=== PATIENT | female | born 1955 | race Caucasian/White ===

== ENCOUNTER 2017-02-17 10:39 | Observation (INO) | payer OTHER ==
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
[2017-02-17] MEDS ORDERED: diphenhydrAMINE 50 MG/ML 1 ML VIAL IVP STA (11:14)
[2017-02-17] MEDS ORDERED: ACETAMINOPHEN IV (For NPO) 1,000 MG in EMPTY BAG 1 BAG IVPB STA (11:14)
[2017-02-17] MEDS ORDERED: LORazepam 2 MG/ML INJ IV STA (11:14)
[2017-02-17] MEDS ORDERED: KETOROLAC 30 MG/ML 1 ML VIAL IVP STA (11:14)
[2017-02-17] MEDS ORDERED: ONDANSETRON 4 MG/2 ML VIAL IVP STA (11:14)
[2017-02-17 11:28] LABS: Basophils % (A) 0 %; CH 29.9; CHCM 33.5; Eosinophils # (A) 0.1 k/uL (0-0.7); Eosinophils % (A) 1 %; HCT 44.3 % (34.0-46.0); HDW 2.36; HGB 14.2 gm/dL (11.4-16.0); Luc # (Auto) 0.07; Luc % (Auto) 1; Lymphocytes # (A) 0.8 k/uL (1.0-4.8); Lymphocytes % (A) 12 %; MCH 28.7 pg (25.0-35.0); MCV 89.8 fL (80.0-100.0); Mean Platelet Volume 7.4; Monocytes # (A) 0.4 k/uL (0-1.0); Monocytes % (A) 6 %; Neutrophils # (A) 5.6 k/uL (1.3-7.7); Neutrophils % (A) 80 %; RBC 4.93 m/uL (3.80-5.40); RDW 14.7 % (11.5-15.5); WBC (Perox) 7.05
[2017-02-17 11:43] LABS: INR 1.2 (<1.2); Partial Thromboplastin Time 24.9 sec (22.0-30.0); Prothrombin Time 11.4 sec (9.0-12.0)
--- NOTE | 2017-02-17 11:44 | XR ---
EXAMINATION TYPE: XR chest 2V DATE OF EXAM: 02/17/2017 COMPARISON: 01/09/2016 HISTORY: 61-year-old female with chest pain and shortness of breath TECHNIQUE: Frontal and lateral views FINDINGS: The cardiomediastinal silhouette, aorta, and pulmonary vasculature are within normal limits. Lungs an d pleural spaces are clear. IMPRESSION: No acute cardiopulmonary process.
[2017-02-17 11:47] LABS: ALT 22 U/L (9-52); AST 20 U/L (14-36); Alkaline Phosphatase 63 U/L (38-126); Anion Gap 12 mmol/L; Blood Urea Nitrogen 10 mg/dL (7-17); Calcium 10.2 mg/dL (8.4-10.2); Carbon Dioxide 20 mmol/L (22-30); Chloride 105 mmol/L (98-107); Glucose 125 mg/dL (74-99); Magnesium 1.5 mg/dL (1.6-2.3); Non-African American GFR(MDRD) >60 (>60 ml/min/1.73 sqM); Potassium 3.8 mmol/L (3.5-5.1); Sodium 137 mmol/L (137-145); Total Bilirubin 0.6 mg/dL (0.2-1.3); Total Protein 7.9 g/dL (6.3-8.2)
[2017-02-17 12:11] LABS: Troponin I 0.018 ng/mL (0.000-0.034)
[2017-02-17 12:12] LABS: Creatine Kinase MB 2.7 ng/mL (0.0-2.4)
[2017-02-17] MEDS ORDERED: HEPARIN SODIUM,PORCINE 5,000 UNIT/ML 1 ML VIAL IV PRN (12:14)
[2017-02-17] MEDS ORDERED: HEPARIN SODIUM,PORCINE 5,000 UNIT/ML 1 ML VIAL IV ONE (12:14)
[2017-02-17] MEDS ORDERED: MORPHINE SULFATE 5 MG/ML SYRINGE IV PRN (12:14)
[2017-02-17] MEDS ORDERED: ASPIRIN 81 MG PO STA (12:14)
--- NOTE | 2017-02-17 12:14 | ED ---
Medical Decision Making - Medical Decision Making 61 female the ER for evaluation on reevaluation patient has continued pain, stress, mild elevated troponin, patient will be admitted for anticoagulation and cardiac observation - Lab Data Result diagrams: 02/17/17 11:13 02/17/17 11:13 Lab Results 02/17/17 02/17/17 02/17/17 Range/Units 11:13 11:13 11:13 WBC 7.0 (3.8-10.6) k/uL RBC 4.93 (3.80-5.40) m/uL Hgb 14.2 (11.4-16.0) gm/dL Hct 44.3 (34.0-46.0) % MCV 89.8 (80.0-100.0) fL MCH 28.7 (25.0-35.0) pg MCHC 32.0 (31.0-37.0) g/dL RDW 14.7 (11.5-15.5) % Plt Count 277 (150-450) k/uL Neutrophils % 80 % Lymphocytes % 12 % Monocytes % 6 % Eosinophils % 1 % Basophils % 0 % Neutrophils # 5.6 (1.3-7.7) k/uL Lymphocytes # 0.8 L (1.0-4.8) k/uL Monocytes # 0.4 (0-1.0) k/uL Eosinophils # 0.1 (0-0.7) k/uL Basophils # 0.0 (0-0.2) k/uL PT (9.0-12.0) sec INR (<1.2) APTT (22.0-30.0) sec D-Dimer (<0.60) mg/L FEU Sodium 137 (137-145) mmol/L Potassium 3.8 (3.5-5.1) mmol/L Chloride 105 (98-107) mmol/L Carbon Dioxide 20 L (22-30) mmol/L Anion Gap 12 mmol/L BUN 10 (7-17) mg/dL Creatinine 0.76 (0.52-1.04) mg/dL Est GFR (MDRD) Af Amer >60 (>60 ml/min/1.73 sqM) Est GFR (MDRD) Non-Af >60 (>60 ml/min/1.73 sqM) Glucose 125 H (74-99) mg/dL Calcium 10.2 (8.4-10.2) mg/dL Magnesium 1.5 L (1.6-2.3) mg/dL Total Bilirubin 0.6 (0.2-1.3) mg/dL AST 20 (14-36) U/L ALT 22 (9-52) U/L Alkaline Phosphatase 63 (38-126) U/L Total Creatine Kinase 136 H (30-135) U/L CK-MB (CK-2) 2.7 H* (0.0-2.4) ng/mL CK-MB (CK-2) Rel Index 2.0 Troponin I 0.018 (0.000-0.034) ng/mL NT-Pro-B Natriuret Pep pg/mL Total Protein 7.9 (6.3-8.2) g/dL Albumin 4.4 (3.5-5.0) g/dL Lipase 60 (23-300) U/L 02/17/17 02/17/17 Range/Units 11:13 11:13 WBC (3.8-10.6) k/uL RBC (3.80-5.40) m/uL Hgb (11.4-16.0) gm/dL Hct (34.0-46.0) % MCV (80.0-100.0) fL MCH (25.0-35.0) pg MCHC (31.0-37.0) g/dL RDW (11.5-15.5) % Plt Count (150-450) k/uL Neutrophils % % Lymphocytes % % Monocytes % % Eosinophils % % Basophils % % Neutrophils # (1.3-7.7) k/uL Lymphocytes # (1.0-4.8) k/uL Monocytes # (0-1.0) k/uL Eosinophils # (0-0.7) k/uL Basophils # (0-0.2) k/uL PT 11.4 (9.0-12.0) sec INR 1.2 H (<1.2) APTT 24.9 (22.0-30.0) sec D-Dimer 0.45 (<0.60) mg/L FEU Sodium (137-145) mmol/L Potassium (3.5-5.1) mmol/L Chloride (98-107) mmol/L Carbon Dioxide (22-30) mmol/L Anion Gap mmol/L BUN (7-17) mg/dL Creatinine (0.52-1.04) mg/dL Est GFR (MDRD) Af Amer (>60 ml/min/1.73 sqM) Est GFR (MDRD) Non-Af (>60 ml/min/1.73 sqM) Glucose (74-99) mg/dL Calcium (8.4-10.2) mg/dL Magnesium (1.6-2.3) mg/dL Total Bilirubin (0.2-1.3) mg/dL AST (14-36) U/L ALT (9-52) U/L Alkaline Phosphatase (38-126) U/L Total Creatine Kinase (30-135) U/L CK-MB (CK-2) (0.0-2.4) ng/mL CK-MB (CK-2) Rel Index Troponin I (0.000-0.034) ng/mL NT-Pro-B Natriuret Pep 144 pg/mL Total Protein (6.3-8.2) g/dL Albumin (3.5-5.0) g/dL Lipase (23-300) U/L Critical Care Time Critical Care Time: Yes Total Critical Care Time: 31 Disposition Clinical Impression: Chest pain, Anxiety attack Disposition: ADMITTED IP TO THIS [facility] Condition: Fair Referrals: Edmar Holder III, MD [Primary Care Provider] - 1-2 days
[2017-02-17] MEDS ORDERED: HEPARIN SOD,PORK IN 0.45% NACL 25,000 UNIT in 0.45% NACL 1 500ML.BAG IV SCH (12:15)
[2017-02-17] MEDS ORDERED: LORazepam 2 MG/ML INJ IV PRN (12:15)
[2017-02-17] MEDS: NITROGLYCERIN SL TABS 0.4 MG TAB SUBLINGUAL PRN ×2 (18:07→18:14)
[2017-02-17] MEDS ORDERED: Magnesium Replacement Protocol 1 EACH MISC MISCELLANE PRN (18:26)
[2017-02-17] MEDS: ALPRAZolam 0.25 MG TAB PO PRN (18:27)
[2017-02-17 18:43] LABS: Creatine Kinase MB 2.6 ng/mL (0.0-2.4); Troponin I 0.053 ng/mL (0.000-0.034)
--- NOTE | 2017-02-17 19:32 | P.HPIM ---
History of Present Illness H&P Date: 02/17/17 Chief Complaint: Shortness of breath and chest tightness Patient is a 61-year-old female with a known history of hypothyroidism, depression and GERD and also chronic active smoking came to the hospital with complaints of chest tightness. Patient today morning felt shortness of breath and very tight feeling in the chest. Patient also felt numbness of the left arm as well as neck pain and came to ER. Pain lasted about half an hour and resolved when she came to the ER. Patient had an argument with her and began to feel very stressed out. Patient otherwise denied any dizziness or lightheadedness. Does have nausea or so vomiting. No recent illnesses or sick contacts at home no recent travel. Patient had previous cardiac catheterization in 2013 was normal. Denied any fever or chills. EKG showed normal sinus rhythm and left atrial enlargement Chest x-ray showed no acute coronary process D-dimer is not elevated Troponin 0.018 and 0.053 Magnesium 1.5 Review of Systems Constitutional: Patient denies any fever or chills . No generalized weakness or weight loss. Abdomen: Patient denied nausea vomiting and diarrhea and abdominal pain. Cardiovascular: Patient denies any chest pain or short of breath no palpitations. He did complain of chest tightness when came to the hospital Respiratory: patient denied any cough is from production. No shortness of breath at this time Neurologic: Patient denied any numbness or tingling headache. Musculoskeletal: Patient denies any complaints of joint swelling or deformity. Skin: Negative Psychiatric: Negative Endocrine: No heat or cold intolerance. No recent weight gain. Genitourinary: No dysuria or hematuria. 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 Last Myocardial Infarction Date:: 2012 History of Any Multi-Drug Resistant Organisms: None Reported Past Surgical History: Back Surgery, Heart Catheterization, Orthopedic Surgery, Tonsillectomy, Tubal Ligation Additional Past Surgical History / Comment(s): 2013 cardiac cath-normal, colonoscopy/benign polypectomy, ORIF LT FT, back x2 Past Anesthesia/Blood Transfusion Reactions: No Reported Reaction Additional Past Anesthesia/Blood Transfusion Reaction / Comment(s): no hx blood transfusion Smoking Status: Current every day smoker - Past Family History Mother Family Medical History: No Reported History Additional Family Medical History / Comment(s): Mother was healthy and lived to be 92 yrs. old. Father History Unknown: Yes Family Medical History: No Reported History Medications and Allergies Home Medications Medication Instructions Recorded Confirmed Type Levothyroxine Sodium [Levoxyl] 88 mcg PO QAM 08/15/14 02/17/17 History ALPRAZolam [Xanax] 0.25 mg PO TID PRN 07/09/15 02/17/17 History Citalopram Hydrobromide [CeleXA] 10 mg PO QAM 01/08/17 02/17/17 History Ibuprofen [Motrin] 800 mg PO TID PRN 01/08/17 02/17/17 History Metoprolol Succinate (ER) [Toprol 25 mg PO DAILY 02/17/17 02/17/17 History Xl] Allergies Allergy/AdvReac Type Severity Reaction Status Date / Time Sulfa (Sulfonamide Allergy Rash/Hives Verified 02/17/17 11:22 Antibiotics) Physical Exam Vitals: Vital Signs Temp Pulse Pulse Resp BP BP Pulse Ox 02/17/17 17:20 97.9 F 102 H 18 109/58 99 02/17/17 15:41 98.3 F 65 16 120/65 97 02/17/17 13:23 98.1 F 65 18 102/75 100 02/17/17 13:03 79 18 120/74 98 02/17/17 12:11 100 18 128/82 96 02/17/17 11:18 18 02/17/17 11:04 91 18 108/77 96 02/17/17 11:01 96.9 F L 101 H 24 136/89 100 Intake and Output 02/17/17 02/17/17 02/17/17 06:59 14:59 22:59 Other: Voiding Method Toilet Weight 65.3 kg 60 kg Patient Weight 02/18/17 06:59 Weight 60 kg PHYSICAL EXAMINATION: Patient is lying in the bed comfortably, no acute distress, awake alert and oriented.. HEENT: Normocephalic. Neck is supple. Pupils reactive. Nostrils clear. Oral cavity is moist. Ears reveal no drainage. Neck reveals no JVD, carotid bruits, or thyromegaly. CHEST EXAMINATION: Trachea is central. Symmetrical expansion. Lung walter clear to auscultation and percussion. CARDIAC: Normal S1, S2 with no gallops. No murmurs ABDOMEN: Soft. Bowel sounds normal. No organomegaly. No abdominal bruits. Extremities: reveal no edema. No clubbing or cyanosis Neurologically awake, alert, oriented x3 with well-coordinated movements. No focal deficits noted Skin: No rash or skin lesions. Psychiatric: COOperative. Nonsuicidal Musculoskeletal: No joint swelling or deformity. Normal range of motion. Results CBC & Chem 7: 02/17/17 11:02/17/17 11: Labs: Abnormal Lab Results - Last 24 Hours (Table) 02/17/17 02/17/17 02/17/17 Range/Units 11:13 11: 11: Lymphocytes # 0.8 L (1.0-4.8) k/uL INR (<1.2) Carbon Dioxide 20 L (22-30) mmol/L Glucose 125 H (74-99) mg/dL Magnesium 1.5 L (1.6-2.3) mg/dL Total Creatine Kinase 136 H (30-135) U/L CK-MB (CK-2) 2.7 H* (0.0-2.4) ng/mL Troponin I (0.000-0.034) ng/mL 02/17/17 02/17/17 Range/Units 11:13 17:38 Lymphocytes # (1.0-4.8) k/uL INR 1.2 H (<1.2) Carbon Dioxide (22-30) mmol/L Glucose (74-99) mg/dL Magnesium (1.6-2.3) mg/dL Total Creatine Kinase (30-135) U/L CK-MB (CK-2) 2.6 H* (0.0-2.4) ng/mL Troponin I 0.053 H* (0.000-0.034) ng/mL Thrombosis Risk Factor Assmnt - DVT/VTE Prophylaxis DVT/VTE Prophylaxis: Pharmacologic Prophylaxis ordered - Choose All That Apply Any of the Below Risk Factors Present?: Yes Each Factor Represents 1 point: Age 41-60 years Other Risk Factors: No Other congenital or acquired thrombophilia - If yes, enter type in comment: No Thrombosis Risk Factor Assessment Total Risk Factor Score: 1 Thrombosis Risk Factor Assessment Level: Low Risk Assessment and Plan Assessment: Chest pain/tightness along with shortness of breath Intermediate level troponin Hypomagnesemia Hypothyroidism Migraine headache Depression GERD PUD Cigarette smoking half pack per day Plan: 61-year-old male admitted to the hospital with complaints of chest tightness and shortness of breath along with mildly elevated troponin level. Will follow serial troponins and EKG. Continue the telemetry monitoring. Patient will be continued on heparin drip. Cardiology has been consulted. Continue with aspirin and statins. Smoking cessation was counseled. Replace magnesium Continue with home medications. Further recommendations based on the clinical course. Time with Patient: Greater than 30
[2017-02-17] MEDS: MAGNESIUM SULFATE-D5W PMX 1 GM in DEXTROSE/WATER 1 100ML.BAG IVPB SCH ×2 (20:12→21:24)
[2017-02-17] MEDS ORDERED: METOPROLOL TARTRATE 25 MG TAB PO SCH (21:00)
[2017-02-18 00:37] LABS: Creatine Kinase MB 2.3 ng/mL (0.0-2.4)
[2017-02-18 00:41] LABS: Troponin I 0.037 ng/mL (0.000-0.034)
[2017-02-18 04:06] LABS: Basophils % (A) 1 %; CH 29.5; CHCM 32.5; Eosinophils # (A) 0.1 k/uL (0-0.7); Eosinophils % (A) 2 %; HCT 42.6 % (34.0-46.0); HDW 2.31; HGB 13.6 gm/dL (11.4-16.0); Luc # (Auto) 0.08; Luc % (Auto) 2; Lymphocytes # (A) 1.5 k/uL (1.0-4.8); Lymphocytes % (A) 28 %; MCH 29.1 pg (25.0-35.0); MCHC 31.9 g/dL (31.0-37.0); MCV 91.3 fL (80.0-100.0); Mean Platelet Volume 7.2; Monocytes # (A) 0.4 k/uL (0-1.0); Monocytes % (A) 8 %; Neutrophils # (A) 3.1 k/uL (1.3-7.7); Neutrophils % (A) 59 %; RBC 4.67 m/uL (3.80-5.40); RDW 14.8 % (11.5-15.5); WBC 5.3 k/uL (3.8-10.6); WBC (Perox) 5.58
[2017-02-18 04:22] LABS: Anion Gap 10 mmol/L; Blood Urea Nitrogen 11 mg/dL (7-17); Carbon Dioxide 23 mmol/L (22-30); Chloride 108 mmol/L (98-107); Cholesterol 237 mg/dL (<200); Glucose 88 mg/dL (74-99); Non-African American GFR(MDRD) >60 (>60 ml/min/1.73 sqM); Sodium 141 mmol/L (137-145)
[2017-02-18 04:50] LABS: Calcium 9.3 mg/dL (8.4-10.2); HDL Cholesterol 57 mg/dL (40-60); Magnesium 2.3 mg/dL (1.6-2.3); Potassium 3.7 mmol/L (3.5-5.1)
[2017-02-18] MEDS: LEVOTHYROXINE 88 MCG TAB PO SCH (06:00)
[2017-02-18] MEDS: ONDANSETRON 4 MG/2 ML VIAL IVP PRN ×2 (08:46→17:17)
--- NOTE | 2017-02-18 09:15 | P.CRDCN ---
History of Present Illness Consult date: 02/18/17 Consult reason: chest pain History of present illness: 61-year-old lady with history of anxiety and depression comes in to Hospital feeling jittery unwell and somewhat depressed. She also complained of chest discomfort which is sharp atypical mild intensity unrelated to exertion and unassociated with diaphoresis. She also complains of shortness of breath along with her anxiety. This is mild to moderate intensity intermittent and resolved spontaneously. Her EKG shows sinus rhythm with nonspecific ST-T wave changes 3 sets of troponins were done and direct [id number] and [id number] patient apparently had a cardiac catheterization in 2012 and was told that she had normal coronary arteries. She is a smoker and is still smoking cigarettes. Her clinical presentation seems to more related to her underlying anxiety. I'm going to stop the IV heparin obtain a 2-D echo to document her LV function and wall motion and if these are normal consider a stress test on her. If the stress test is abnormal then we can consider invasive angiography. Review of Systems Constitutional: Denies chills. Denies fever. Eyes: Denies blurred vision. Denies pain. Ears, nose, mouth and throat: Denies headache. Denies sore throat. Cardiovascular: has chest pain. has shortness of breath. Respiratory: Denies cough. Gastrointestinal: Denies abdominal pain. Denies diarrhea. Denies nausea. Denies vomiting. Musculoskeletal: Denies myalgias. Integumentary: Denies pruritus. Denies rash. Neurological: Denies numbness. Denies weakness. Psychiatric: has anxiety. Denies depression. Endocrine: Denies fatigue. Denies weight change. Genitourinary: Denies burning, hematuria, frequency of urination. Hematological: No anemia or excess bleeding. 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 Last Myocardial Infarction Date:: 2012 History of Any Multi-Drug Resistant Organisms: None Reported Past Surgical History: Back Surgery, Heart Catheterization, Orthopedic Surgery, Tonsillectomy, Tubal Ligation Additional Past Surgical History / Comment(s): 2013 cardiac cath-normal, colonoscopy/benign polypectomy, ORIF LT FT, back x2 Past Anesthesia/Blood Transfusion Reactions: No Reported Reaction Additional Past Anesthesia/Blood Transfusion Reaction / Comment(s): no hx blood transfusion Smoking Status: Current every day smoker - Past Family History Mother Family Medical History: No Reported History Additional Family Medical History / Comment(s): Mother was healthy and lived to be 92 yrs. old. Father History Unknown: Yes Family Medical History: No Reported History Medications and Allergies Home Medications Medication Instructions Recorded Confirmed Type Levothyroxine Sodium [Levoxyl] 88 mcg PO QAM 08/15/14 02/17/17 History ALPRAZolam [Xanax] 0.25 mg PO TID PRN 07/09/15 02/17/17 History Citalopram Hydrobromide [CeleXA] 10 mg PO QAM 01/08/17 02/17/17 History Ibuprofen [Motrin] 800 mg PO TID PRN 01/08/17 02/17/17 History Metoprolol Succinate (ER) [Toprol 25 mg PO DAILY 02/17/17 02/17/17 History Xl] Allergies Allergy/AdvReac Type Severity Reaction Status Date / Time Sulfa (Sulfonamide Allergy Rash/Hives Verified 02/17/17 11:22 Antibiotics) Physical Exam Vitals: Vital Signs Temp Pulse Pulse Pulse Resp BP BP 02/18/17 04:00 97.6 F 67 18 136/75 02/18/17 00:00 98.0 F 70 18 102/57 02/17/17 20:00 98.9 F 62 62 18 139/68 02/17/17 17:20 97.9 F 102 H 18 109/58 02/17/17 15:41 98.3 F 65 16 120/65 02/17/17 13:23 98.1 F 65 18 102/75 02/17/17 13:03 79 18 120/74 02/17/17 12:11 100 18 128/82 02/17/17 11:18 18 02/17/17 11:04 91 18 108/77 02/17/17 11:01 96.9 F L 101 H 24 136/89 Pulse Ox 02/18/17 04:00 98 02/18/17 00:00 95 02/17/17 20:00 100 02/17/17 17:20 99 02/17/17 15:41 97 02/17/17 13:23 100 02/17/17 13:03 98 02/17/17 12:11 96 02/17/17 11:18 02/17/17 11:04 96 02/17/17 11:01 100 Intake and Output 02/17/17 02/18/17 02/18/17 22:59 06:59 14:59 Intake Total 124.399 Balance 124.399 Intake: Intake, IV Titration 124.399 Amount Heparin Sod,Pork in 0.45% 124.399 NaCl 25,000 unit In 0.45 % NaCl 1 500ml.bag @ 12 UNITS/KG/HR 15.78 mls/hr IV .Q24H [facility] Rx#: [id number] Other: Voiding Method Toilet Toilet Weight 60 kg General: The patient is awake and alert, in no distress, and does not appear acutely ill. Skin: Skin is warm and dry and no rashes or lesions are noted. Eye: Pupils are equal, round and reactive to light, extra-ocular movements are intact; there is normal conjunctiva bilaterally. Ears, nose, mouth and throat: There are moist mucous membranes and no oral lesions. Neck: The neck is supple, there is no tenderness or JVD. Cardiovascular: There is a regular rate and rhythm. No murmur, rub or gallop is appreciated. Respiratory: Lungs are clear to auscultation, respirations are non-labored, breath sounds are equal. Gastrointestinal: Soft, non-distended, non-tender abdomen without masses or organomegaly noted. There is no rebound or guarding present. Bowel sounds are unremarkable. Back: There is no tenderness to palpation in the midline. There is no obvious deformity. Musculoskeletal: Normal ROM, no tenderness, There is no pedal edema. There is no calf tenderness or swelling. Extremities: No edema. Vascular: Femoral pulse is normal. Posterior tibial pulses are normal .Dorsalis pedis is palpable. Neurological: CN II-XII intact. There are no obvious motor or sensory deficits. Speech is normal. Psychiatric: Cooperative, appropriate mood & affect, normal judgment. Results 02/18/17 03:52 02/18/17 03:52 Cardiac Enzymes 02/17/17 02/17/17 02/17/17 Range/Units 11:13 11:13 17:38 AST 20 (14-36) U/L CK-MB (CK-2) 2.7 H* 2.6 H* (0.0-2.4) ng/mL Troponin I 0.018 0.053 H* (0.000-0.034) ng/mL 02/17/17 Range/Units 23:31 AST (14-36) U/L CK-MB (CK-2) 2.3 (0.0-2.4) ng/mL Troponin I 0.037 H* (0.000-0.034) ng/mL Coagulation 02/17/17 02/17/17 02/18/17 Range/Units 11: 19:37 03:52 PT 11.4 (9.0-12.0) sec APTT 24.9 35.2 H 64.6 H (22.0-30.0) sec Lipids 02/18/17 Range/Units 03:52 Triglycerides 76 (<150) mg/dL Cholesterol 237 H (<200) mg/dL HDL Cholesterol 57 (40-60) mg/dL CBC 02/17/17 02/18/17 Range/Units 11:13 03:52 WBC 7.0 5.3 (3.8-10.6) k/uL RBC 4.93 4.67 (3.80-5.40) m/uL Hgb 14.2 13.6 (11.4-16.0) gm/dL Hct 44.3 42.6 (34.0-46.0) % Plt Count 277 255 (150-450) k/uL Comprehensive Metabolic Panel 02/17/17 02/18/17 Range/Units 11:13 03:52 Sodium 137 141 (137-145) mmol/L Potassium 3.8 3.7 (3.5-5.1) mmol/L Chloride 105 108 H (98-107) mmol/L Carbon Dioxide 20 L 23 (22-30) mmol/L BUN 10 11 (7-17) mg/dL Creatinine 0.76 0.80 (0.52-1.04) mg/dL Glucose 125 H 88 (74-99) mg/dL Calcium 10.2 9.3 (8.4-10.2) mg/dL AST 20 (14-36) U/L ALT 22 (9-52) U/L Alkaline Phosphatase 63 (38-126) U/L Total Protein 7.9 (6.3-8.2) g/dL Albumin 4.4 (3.5-5.0) g/dL Current Medications Generic Name Dose Route Start Last Admin Trade Name Freq PRN Reason Stop Dose Admin Alprazolam 0.25 mg 02/17/17 16:21 02/17/17 18:27 Xanax PO 0.25 mg TID PRN Administration Anxiety Aspirin 325 mg 02/18/17 09:00 Aspirin PO DAILY [facility] Atorvastatin Calcium 80 mg 02/18/17 09:00 Lipitor PO DAILY [facility] Citalopram Hydrobromide 10 mg 02/18/17 09:00 Celexa PO QAM [facility] Heparin Sodium (Porcine) 0 unit 02/17/17 12:14 02/17/17 20:51 Heparin IV 3,000 unit Q6HR PRN Administration Low PTT Protocol Levothyroxine Sodium 88 mcg 02/18/17 06:30 02/18/17 06:00 Synthroid PO 88 mcg DAILY@0630 [facility] Administration Metoprolol Succinate 25 mg 02/18/17 09:00 Toprol Xl PO DAILY [facility] Miscellaneous Information 1 each 02/17/17 18:26 Magnesium Per Protocol MISCELLANE DAILY PRN Per Protocol Protocol Morphine Sulfate 4 mg 02/17/17 12:14 Morphine Sulfate IV Q5M PRN Chest Pain Nitroglycerin 0.4 mg 02/17/17 12:14 02/17/17 18:14 Nitrostat SUBLINGUAL 0.4 mg Q5M PRN Administration Chest Pain Ondansetron HCl 4 mg 02/18/17 08:36 02/18/17 08:46 Zofran IVP 4 mg Q6HR PRN Administration Nausea And Vomiting Intake and Output 02/17/17 02/18/17 02/18/17 22:59 06:59 14:59 Intake Total 124.399 Balance 124.399 Intake: Intake, IV Titration 124.399 Amount Heparin Sod,Pork in 0.45% 124.399 NaCl 25,000 unit In 0.45 % NaCl 1 500ml.bag @ 12 UNITS/KG/HR 15.78 mls/hr IV .Q24H [facility] Rx#: [id number] Other: Voiding Method Toilet Toilet Weight 60 kg 02/18/17 03:52 02/18/17 03:52 EKG Interpretations (text) Normal sinus rhythm with nonspecific ST-T wave changes Assessment and Plan Assessment: Shortness of breath probably related to anxiety Mild troponin elevation of unclear clinical significance Smoking Severe dyslipidemia I advised the patient to quit smoking I'm going to stop the IV heparin I will obtain a 2-D echo to document her LV function I will decide on further course of action based on the echo findings I will start the patient on statins
[2017-02-18] MEDS: METOPROLOL SUCCINATE (ER) 25 MG TAB.ER.24H PO SCH (10:07)
[2017-02-18] MEDS: CITALOPRAM HYDROBROMIDE 10 MG TAB PO SCH (10:07)
[2017-02-18] MEDS: ASPIRIN 325 MG TAB PO SCH (10:07)
[2017-02-18] MEDS: ATORVASTATIN 80 MG TAB PO SCH (10:07)
[2017-02-18] MEDS: ALPRAZolam 0.25 MG TAB PO PRN ×2 (14:40→22:58)
[2017-02-18] MEDS: NITROGLYCERIN SL TABS 0.4 MG TAB SUBLINGUAL PRN (14:46)
--- NOTE | 2017-02-18 21:51 | CONS ---
CONSULTATION DATE OF SERVICE: 02/18/2017 Patient is resting comfortably in bed. The patient is a 61-year-old female with a history of anxiety and depression, was admitted to the hospital with chest pain. EKG showed normal sinus rhythm with nonspecific T wave changes. Cardiac enzymes have been negative. Cardiology has been consulted. The patient did have an episode of chest pain earlier today, which resolved with sublingual nitroglycerin. Cardiology has been on the case. Vital signs are stable. Buccal mucosa is pale. Neck is supple. LUNGS: Clear to auscultation. No rales, rhonchi or wheezes. Heart is regular rate and rhythm. Abdomen is soft, nontender and nondistended. Bowel sounds positive. EXTREMITIES: No edema, clubbing, cyanosis. ASSESSMENT: 1. Chest pain, rule out acute coronary syndrome which has been ruled out. The patient continues to have chest pains. Cardiology's initial impression was possible anxiety and T waves. The patient did have another episode of chest pain which was resolved by nitroglycerin. Echocardiogram remains pending. Will wait for further results on echocardiogram plus repeat cardiology visit for any further recommendations or comments on chest pain the patient had today. 2. Hypothyroidism. Patient is clinically euthyroid. 3. Hypomagnesemia, resolved. 4. History of depression. Continue home medications. The patient remains on aspirin and statin. Smoking cessation counseling has been done. Will wait for Cardiology to re-evaluate the patient. KAELA / ADDIE: [id number] /
[2017-02-18] MEDS: MAGNESIUM SULFATE-D5W PMX 1 GM in DEXTROSE/WATER 1 100ML.BAG IVPB SCH (22:52)
[2017-02-19] MEDS: MAGNESIUM SULFATE-D5W PMX 1 GM in DEXTROSE/WATER 1 100ML.BAG IVPB SCH (00:09)
[2017-02-19 06:23] LABS: Mean Platelet Volume 6.7
[2017-02-19] MEDS: LEVOTHYROXINE 88 MCG TAB PO SCH (06:36)
[2017-02-19] MEDS: CITALOPRAM HYDROBROMIDE 10 MG TAB PO SCH (08:04)
[2017-02-19] MEDS: ATORVASTATIN 80 MG TAB PO SCH (08:04)
[2017-02-19] MEDS: METOPROLOL SUCCINATE (ER) 25 MG TAB.ER.24H PO SCH (08:04)
[2017-02-19] MEDS: ASPIRIN 325 MG TAB PO SCH (08:04)
[2017-02-19] MEDS: ALPRAZolam 0.25 MG TAB PO PRN ×2 (08:08→14:32)
[2017-02-19] MEDS ORDERED: DOBUTamine DRIP for NUC MED 500 MG in DEXTROSE/WATER 1 250ML.BAG IV ONE (09:32)
--- NOTE | 2017-02-19 11:18 | P.PN ---
Subjective Progress Note Date: 02/19/17 Principal diagnosis: Chest Pain Is an 61-year-old female patient with history of anxiety and depression. Presented to the hospital feeling jittery, unwell and somewhat depressed. She also complained of some chest discomfort which was sharp, atypical, mild intensity. It was unrelated to exertion. He did complain of some shortness of breath however no diaphoresis. Troponins were found to be minimally elevated at 0.018, 0.053, and 0.037. She underwent 2-D echo with Doppler yesterday, results are pending. On examination, she is feeling well. She says she is feeling quite a bit better compared to yesterday. She has no further complaints of sharp chest discomfort. She has no shortness of breath, palpitations, dizziness or edema. Objective - Vital Signs Vital signs: Vital Signs Temp 97.9 F 02/19/17 07:56 Pulse 68 02/19/17 07:56 Resp 16 02/19/17 07:56 BP 146/73 02/19/17 07:56 Pulse Ox 97 02/19/17 07:56 Intake & Output 02/18/17 02/19/17 02/19/17 18:59 06:59 18:59 Intake Total 180 Balance 180 Intake: Oral 180 Other: Voiding Method Toilet - Exam PHYSICAL EXAMINATION: HEENT: Head is atraumatic, normocephalic. Pupils equal, round. Neck is supple. There is no elevated jugular venous pressure. HEART EXAMINATION: Heart sounds regular, S1 and S2 normal. No murmur or gallop heard. CHEST EXAMINATION: Lungs are clear to auscultation and precussion. No chest wall tenderness is noted on palpation or with deep breathing. ABDOMEN: Soft, nontender. Bowel sounds are heard. No organomegaly noted. EXTREMITIES: 2+ peripheral pulses with no evidence of peripheral edema and no calf tenderness noted. NEUROLOGIC patient is awake, alert and oriented x3. . - Labs CBC & Chem 7: 02/19/17 06:04 02/18/17 20:42 Assessment and Plan Assessment: #1 shortness of breath, likely related to anxiety #2 atypical chest discomfort #3 minimal troponin elevation of unclear clinical significance #4 Smoking #5 severe dyslipidemia From cardiology's perspective, we'll obtain a dobutamine stress echo. If this is normal patient may be discharged home today and follow-up in the office with Dr. Bright. The patient was advised to quit smoking. Further recommendations to follow depending on results of stress test. The above dictated assessment and findings were discussed with signing physician. The impression and plan of care have been directed as dictated. Patria Schaeffer, Nurse Practitioner, acting as scribe for signing physician.
[2017-02-19 12:23] VITALS: BP 131/67; PULSE 62; RESP 18; TEMP 96
--- NOTE | 2017-02-19 12:37 | P.STRESS ---
- Stress Test Note Stress Test Results/Findings: Exam Performed: stress echo exercise Exam Date: 02/19/17 Reason for Exam: CHEST PAIN Height: 5 ft 6 in Weight: 60 kg Protocol: JANE Stage: 4 Duration of Exercise: 10:00 Resting Heart Rate: 75 Resting Blood Pressure: 136/70 Maximum Achieved Heart Rate: 139 Maximum Achieved Blood Pressure: 150/69 85% PMHR: 136 100% PMHR: 160 METS: NA Technologist Comment: Stress Test Results/Findings: Baseline EKG showed sinus rhythm with normal MA interval and QRS duration with mild nonspecific ST-T abnormalities and EKGs taken during exercise and in and immediately after exercise showed evidence of about [address] depression in inferolateral leads. Patient did not express any chest pain. Echo data: Baseline echo images showed normal wall motion and thickening. Echo images taken both at low dose and high dose dobutamine showed augmentation of wall motion and thickening in all the segments. Final impression: #1. Borderline positive stress test, based on EKG changes .This could be nonspecific, because of baseline abnormalities. #2. Negative dobutamine stress echo
--- NOTE | 2017-02-22 07:19 | DS ---
DISCHARGE SUMMARY DATE OF ADMISSION: 02/17/2017. DATE OF DISCHARGE: 02/19/2017. ADMISSION DIAGNOSES: 1. Chest pain rule out acute coronary syndrome. 2. History of hypothyroidism. 3. Hypomagnesemia. 4. History of depression. DISCHARGE DIAGNOSES: 1. Atypical chest pain. 2. History of hypothyroidism. 3. Hypomagnesemia. 4. Depression. BRIEF HISTORY: Patient is a 61-year-old female patient with history of anxiety and depression, presented to the ED with a complaint of chest pain. PHYSICAL EXAMINATION; GENERAL; awake and alert. In no acute distress. HEENT; AT/NC; [place]AR[place], EOMI; buccal mucosa is moist. NECK: supple without goitre or LN RESPIRATORY; Lungs are CTA without rales or rhonchi. HRRR without any murmurs or gallop rhythm ABDOMEN; soft or non-tender, non distended. BS + EXTREMITIES; no edema or cyanosis IMPLEMENTATION LEAD; AAOx3. CN II-VII are grossly intact EKG showed normal sinus rhythm with nonspecific ST wave changes. BRIEF HOSPITAL COURSE: Cardiology was consulted. Patient's cardiac enzymes remained negative and the patient's medication, and chart was reviewed by surgery and patient was deemed stable for discharge. Although at the time of discharge, the patient has some chest pain and dyspnea. She wanted to wait another day for further workup. The patient was seen by Cardiology again. She was cleared for discharge with stress test as an outpatient. The patient did not have any further complications. She was discharged home on current home medications and follow up with primary care physician. KAELA / ADDIE: [id number] / MTDHaley
--- NOTE | 2017-02-22 12:10 | ECHOS ---
Stress Test Results/Findings: Exam Performed: stress echo exercise Exam Date: 02/19/17 Reason for Exam: CHEST PAIN Height: 5 ft 6 in Weight: 60 kg Protocol: JANE Stage: 4 Duration of Exercise: 10:00 Resting Heart Rate: 75 Resting Blood Pressure: 136/70 Maximum Achieved Heart Rate: 139 Maximum Achieved Blood Pressure: 150/69 85% PMHR: 136 100% PMHR: 160 METS: NA Technologist Comment: Stress Test Results/Findings: Baseline EKG showed sinus rhythm with normal OH interval and QRS duration with mild nonspecific ST-T abnormalities and EKGs taken during exercise and in and immediately after exercise showed evidence of about [address] depression in inferolateral leads. Patient did not express any chest pain. Echo data: Baseline echo images showed normal wall motion and thickening. Echo images taken both at low dose and high dose dobutamine showed augmentation of wall motion and thickening in all the segments. Final impression: #1. Borderline positive stress test, based on EKG changes .This could be nonspecific, because of baseline abnormalities. #2. Negative dobutamine stress echo MTDD
--- NOTE | 2017-02-23 14:23 | ECHOF ---
Referral Reason:chest pain MEASUREMENTS -------- HEIGHT: 167.6 cm WEIGHT: 59.9 kg BP: 146/85 RVIDd: 2.6 cm (< 3.3) IVSd: 1.1 cm (0.6 - 1.1) LVIDd: 4.6 cm (3.9 - 5.3) LVPWd: 1.2 cm (0.6 - 1.1) IVSs: 1.5 cm LVIDs: 2.8 cm LVPWs: 1.6 cm LA Diam: 3.1 cm (2.7 - 3.8) LAESV Index (A-L): 27.06 ml/m Ao Diam: 2.9 cm (2.0 - 3.7) AV Cusp: 2.1 cm (1.5 - 2.6) MV EXCURSION: 13.818 mm (> 18.000) MV EF SLOPE: 97 mm/s (70 - 150) EPSS: 0.1 cm MV E Maksim: 0.90 m/s MV DecT: 285 ms MV A Maksim: 0.91 m/s MV E/A Ratio: 0.98 FINDINGS -------- Sinus rhythm. This was a technically good study. The left ventricular size is normal. There is borderline concentric left ventricular hypertrophy. Overall left ventricular systolic function is normal with, an EF between 60 - 65 %. The right ventricle is normal in size. Normal LA size by volume 22+/-6 ml/m2. The right atrium is normal in size. The aortic valve is trileaflet and appears structurally normal. There is trace mitral regurgitation. The tricuspid valve appears structurally normal. There is no pulmonic regurgitation present. The aortic root size is normal. Normal inferior vena cava with normal inspiratory collapse consistent with estimated right atrial pre ssure of 5 mmHg. There is no pericardial effusion. CONCLUSIONS -------- 1. Sinus rhythm. 2. This was a technically good study. 3. The left ventricular size is normal. 4. There is borderline concentric left ventricular hypertrophy. 5. Overall left ventricular systolic function is normal with, an EF between 60 - 65 %. 6. The right ventricle is normal in size. 7. Normal LA size by volume 22+/-6 ml/m2. 8. The right atrium is normal in size. 9. The aortic valve is trileaflet and appears structurally normal. 10. There is trace mitral regurgitation. 11. The tricuspid valve appears structurally normal. 12. There is no pulmonic regurgitation present. 13. The aortic root size is normal. 14. Normal inferior vena cava with normal inspiratory collapse consistent with estimated right atrial pressure of 5 mmHg. 15. There is no pericardial effusion. DRYWALL FINISHER: Alexus Piña RDCS
== END 2017-02-19 17:28 | disposition home or self-care (01) ==
LOC: EC 10:39 → 3OBS 12:14 → 6SEL 19:19
PROVIDERS: ADMIT Hospitalist; ATTEND Hospitalist
DX: R07.89 Other chest pain (principal); R06.02 Shortness of breath; M54.2 Cervicalgia; R20.0 Anesthesia of skin; R74.8 Abnormal levels of other serum enzymes; F41.9 Anxiety disorder, unspecified; E83.42 Hypomagnesemia; E78.5 Hyperlipidemia, unspecified; E03.9 Hypothyroidism, unspecified; I10 Essential (primary) hypertension; G43.909 Migraine, unspecified, not intractable, without status migrainosus; F32.9 Major depressive disorder, single episode, unspecified; K21.9 Gastro-esophageal reflux disease without esophagitis; K27.9 Peptic ulcer, site unspecified, unspecified as acute or chronic, without hemorrhage or perforation; M54.5 Low back pain; I25.2 Old myocardial infarction; F17.210 Nicotine dependence, cigarettes, uncomplicated; Z79.899 Other long term (current) drug therapy; Z88.2 Allergy status to sulfonamides; F43.9 Reaction to severe stress, unspecified
CPT/HCPCS: 99291; 96375 ×6; 96376 ×4; 96365; 96366 ×3; 96367; 36415; 93005; 93017; 93306; 93350; 85379; 83880; 80061; 80053; 80048; 82550; 82553; 83690; 83735 ×3; 84132; 84484; 85025 ×2; 85049; 85610; 85730 ×3; 71020; G0378 ×4; J2060; J1250; J1200; J1644 ×2; J2405 ×2; J1885; J3475 ×3; J0131

== ENCOUNTER 2017-07-08 07:24 | Observation (INO) | payer BC, OTHER ==
[2017-07-08] MEDS ORDERED: SODIUM CHLORIDE 0.9% 1,000 ML IV STA ×2 (07:36)
[2017-07-08] MEDS ORDERED: ONDANSETRON 4 MG/2 ML VIAL IVP STA (07:36)
[2017-07-08] MEDS ORDERED: FAMOTIDINE 20 MG/2 ML VIAL IV STA (07:40)
--- NOTE | 2017-07-08 07:51 | ED ---
General Adult HPI - General Chief complaint: Nausea/Vomiting/Diarrhea Stated complaint: Vomiting Time Seen by Provider: 07/08/17 07:31 Source: patient Mode of arrival: ambulatory Limitations: no limitations - History of Present Illness Initial comments: 61Years old female comes in with the nausea ongoing for last 3 days she said she had no food to eat or drink because of the nausea and she doesn't have any history of nausea vomiting in the past right. She has been taking Chantix , recently Celexa was added to her regimen she don't know exactly how many days ago she also takes Xanax and thyroid medication. Denies any headaches no neck stiffness no chest pain or shortness of breath denies any abdominal pain, no frequency urgency dysuria no symptoms of TIA or CVA - Related Data Home Medications Medication Instructions Recorded Confirmed Levothyroxine Sodium [Levoxyl] 88 mcg PO QAM 08/15/14 07/08/17 Metoprolol Succinate (ER) [Toprol 25 mg PO DAILY 02/17/17 07/08/17 XL] ALPRAZolam [Xanax] 0.5 mg PO TID PRN 07/08/17 07/08/17 Citalopram Hydrobromide [CeleXA] 40 mg PO DAILY 07/08/17 07/08/17 Varenicline [Chantix Continuing 1 mg PO BID 07/08/17 07/08/17 Pack] Allergies Allergy/AdvReac Type Severity Reaction Status Date / Time Sulfa (Sulfonamide Allergy Rash/Hives Verified 07/08/17 07:48 Antibiotics) Review of Systems ROS Statement: Those systems with pertinent positive or pertinent negative responses have been documented in the HPI. ROS Other: All systems not noted in ROS Statement are negative. Past Medical History Past Medical History: GERD/Reflux, Hypertension, Myocardial Infarction ([place]), Pneumonia, Thyroid Disorder Additional Past Medical History / Comment(s): Recent upper respiratory infection , "2012 electrical heart attack", PUD, hypothyroid, low back pain, past migraines, lt foot fx with surgery, rib fx, diverticular dx/benign polyp. Last Myocardial Infarction Date:: 2012 History of Any Multi-Drug Resistant Organisms: None Reported Past Surgical History: Back Surgery, Heart Catheterization, Orthopedic Surgery, Tonsillectomy, Tubal Ligation Additional Past Surgical History / Comment(s): 2013 cardiac cath-normal, colonoscopy/benign polypectomy, ORIF LT FT, back x2 Past Anesthesia/Blood Transfusion Reactions: No Reported Reaction Additional Past Anesthesia/Blood Transfusion Reaction / Comment(s): no hx blood transfusion Past Psychological History: No Psychological Hx Reported Smoking Status: Former smoker Past Alcohol Use History: None Reported Past Drug Use History: None Reported - Past Family History Mother Family Medical History: No Reported History Additional Family Medical History / Comment(s): Mother was healthy and lived to be 92 yrs. old. Father History Unknown: Yes Family Medical History: No Reported History General Exam - General Exam Comments Initial Comments: General: The patient is awake and alert, in no distress, Skin: Skin is warm and dry and no rashes or lesions are noted. Eye: Pupils are equal, round and reactive to light, extra-ocular movements are intact; there is normal conjunctiva bilaterally. Ears, nose, mouth and throat: There are moist mucous membranes and no oral lesions. Neck: The neck is supple, there is no tenderness or JVD. Cardiovascular: There is a regular rate and rhythm. No murmur, rub or gallop is appreciated. Respiratory: To auscultation bilateral, no wheezing no rhonchi no distress respiratory ruiz noticed Gastrointestinal: Soft, non-distended, non-tender abdomen without masses or organomegaly noted. There is no rebound or guarding present. Bowel sounds are unremarkable. Back: There is no tenderness to palpation in the midline. There is no obvious deformity. Musculoskeletal: Normal ROM, no tenderness, There is no pedal edema. There is no calf tenderness or swelling. No cords were appreciated. Neurological: CN II-XII intact, Cranial nerves III through XII are intact. There are no obvious motor or sensory deficits. Coordination appears grossly intact. Speech is normal. Psychiatric: Cooperative, appropriate mood & affect, normal judgment. Limitations: no limitations Course Vital Signs 07/08/17 07:26 Temperature 97.3 F L Pulse Rate 116 H Respiratory 20 Rate Blood Pressure 162/96 O2 Sat by Pulse 96 Oximetry 11 AM, she is complaining about nausea and complaining about a cane take it anymore looks like a she is having a panic attack she was given some Ativan also ordered a head CT Head CT is pending at this point patient was reassessed at 1145 and she still has intractable nausea and vomiting and complaining about not feeling right head feels heavy feels pressure in the head considering that I'm going to admit him to observation for will consult on neurology - Reevaluation(s) Reevaluation #1: Shouldn't is reassessed at 1039 she is done with the 2 L of fluids she had his Zofran for milligram IV, she still quite nauseous and she still quite tachycardic, been given another liter of fluids with the metoclopramide 10 mg 07/08/17 10:38 07/08/17 11:46 Centering the patient's clinical picture of not feeling well I plan to admit her Medical Decision Making - Lab Data Result diagrams: 07/08/17 07:50 07/08/17 07:50 Lab Results 07/08/17 07/08/17 Range/Units 07:50 07:50 WBC 14.2 H (3.8-10.6) k/uL RBC 5.62 H (3.80-5.40) m/uL Hgb 15.9 (11.4-16.0) gm/dL Hct 46.4 H (34.0-46.0) % MCV 82.5 (80.0-100.0) fL MCH 28.3 (25.0-35.0) pg MCHC 34.3 (31.0-37.0) g/dL RDW 12.8 (11.5-15.5) % Plt Count 306 (150-450) k/uL Neutrophils % 82 % Lymphocytes % 11 % Monocytes % 5 % Eosinophils % 1 % Basophils % 0 % Neutrophils # 11.6 H (1.3-7.7) k/uL Lymphocytes # 1.5 (1.0-4.8) k/uL Monocytes # 0.8 (0-1.0) k/uL Eosinophils # 0.1 (0-0.7) k/uL Basophils # 0.0 (0-0.2) k/uL Sodium 133 L (137-145) mmol/L Potassium 3.9 (3.5-5.1) mmol/L Chloride 96 L (98-107) mmol/L Carbon Dioxide 15 L (22-30) mmol/L Anion Gap 22 mmol/L BUN 37 H (7-17) mg/dL Creatinine 1.19 H (0.52-1.04) mg/dL Est GFR (CKD-EPI)AfAm 57 (>60 ml/min/1.73 sqM) Est GFR (CKD-EPI)NonAf 50 (>60 ml/min/1.73 sqM) Glucose 139 H (74-99) mg/dL Calcium 10.5 H (8.4-10.2) mg/dL Total Bilirubin 1.0 (0.2-1.3) mg/dL AST 29 (14-36) U/L ALT 18 (9-52) U/L Alkaline Phosphatase 74 (38-126) U/L C-Reactive Protein <5.0 (<10.0) mg/L Total Protein 8.9 H (6.3-8.2) g/dL Albumin 5.0 (3.5-5.0) g/dL Amylase 120 H (30-110) U/L Lipase 62 (23-300) U/L Disposition Clinical Impression: Intractable nausea and vomiting, Metabolic acidosis, Dehydration, Dizziness, Pressure in head Disposition: ADMITTED IP TO THIS HOSP Condition: Good Referrals: Edmar Holder III, MD [Primary Care Provider] - 1-2 days
[2017-07-08 08:07] LABS: Basophils % (A) 0 %; Eosinophils # (A) 0.1 k/uL (0-0.7); Eosinophils % (A) 1 %; HCT 46.4 % (34.0-46.0); HGB 15.9 gm/dL (11.4-16.0); Lymphocytes # (A) 1.5 k/uL (1.0-4.8); Lymphocytes % (A) 11 %; MCH 28.3 pg (25.0-35.0); MCHC 34.3 g/dL (31.0-37.0); MCV 82.5 fL (80.0-100.0); Monocytes # (A) 0.8 k/uL (0-1.0); Monocytes % (A) 5 %; Neutrophils # (A) 11.6 k/uL (1.3-7.7); Neutrophils % (A) 82 %; Platelet Count 306 k/uL (150-450); RBC 5.62 m/uL (3.80-5.40); RDW 12.8 % (11.5-15.5); WBC 14.2 k/uL (3.8-10.6)
--- NOTE | 2017-07-08 08:36 | XR ---
EXAMINATION TYPE: XR abdomen acute w cxr DATE OF EXAM: 07/08/2017 COMPARISON: NONE HISTORY: Nausea and vomiting for 3 days TECHNIQUE: Frontal chest radiograph, upright abdominal radiograph and supine abdominal radiograph we re obtained FINDINGS: Chest: No focal consolidation, pleural effusion or pneumothorax. Cardia mediastinal silhoue tte is within normal limits. Mild degenerative changes of the thoracic spine and acromioclavicular kat ints are seen. ABDOMEN: S-shaped scoliotic curvature of the thoracal lumbar spine is seen with extensive degenerativ e changes of the lower lumbar spine. Linear hyperdensities are seen along the left midline abdomen, p ossibly related to prior ingested substances within the bowel. Postsurgical changes of the right lumb osacral junction are present. Bowel gas nondilated. No pneumoperitoneum. IMPRESSION: Nonobstructive bowel gas pattern. No evidence of pneumoperitoneum.
[2017-07-08 08:55] LABS: ALT 18 U/L (9-52); AST 29 U/L (14-36); Alkaline Phosphatase 74 U/L (38-126); Amylase 120 U/L (30-110); Anion Gap 22 mmol/L; Blood Urea Nitrogen 37 mg/dL (7-17); C Reactive Protein <5.0 mg/L (<10.0); Calcium 10.5 mg/dL (8.4-10.2); Carbon Dioxide 15 mmol/L (22-30); Chloride 96 mmol/L (98-107); Glucose 139 mg/dL (74-99); Lipase 62 U/L (23-300); Potassium 3.9 mmol/L (3.5-5.1); Sodium 133 mmol/L (137-145); Total Protein 8.9 g/dL (6.3-8.2)
[2017-07-08] MEDS ORDERED: METOCLOPRAMIDE 5 MG/ML 2 ML VIAL IVP STA (10:37)
[2017-07-08] MEDS ORDERED: SODIUM CHLORIDE 0.9% 1,000 ML IV ONE (10:40)
[2017-07-08] MEDS ORDERED: LORazepam 2 MG/ML INJ IV STA (11:14)
--- NOTE | 2017-07-08 11:46 | CT ---
EXAMINATION TYPE: CT brain wo con DATE OF EXAM: 07/08/2017 COMPARISON: NONE HISTORY: Patient complains of nausea. CT DLP: 956.1 mGycm Automated exposure control for dose reduction was used. FINDINGS: Ventricular system is midline. No acute hemorrhage or mass effect. No midline shift. Calvarium is intact. There are couple protuberance extending off the outer table of the calvarium whi ch may represent multi focal osteoma. IMPRESSION: NO ACUTE HEMORRHAGE OR MASS EFFECT. IF THERE IS CONCERN FOR ACUTE ISCHEMIA CORRELATE WITH CAROTID CLINICALLY WARRANTED.
[2017-07-08] MEDS ORDERED: ACETAMINOPHEN TAB 325 MG TAB PO PRN (11:47)
[2017-07-08] MEDS ORDERED: ONDANSETRON 4 MG/2 ML VIAL IVP PRN (11:47)
[2017-07-08] MEDS ORDERED: NALOXONE 0.4 MG/ML 1 ML VIAL IV PRN (11:47)
[2017-07-08] MEDS: ALPRAZolam 0.5 MG TAB PO PRN (16:13)
[2017-07-08] MEDS: SODIUM CHLORIDE 0.9% 1,000 ML IV SCH (17:57)
[2017-07-08 18:18] LABS: Appearance,Urine Clear (Clear); Bilirubin,Urine Negative (Negative); Blood,Urine Small (Negative); Color,Urine Light Yellow; Glucose,Urine (UA) Negative (Negative); Ketones,Urine 1+ (Negative); Leukocyte Esterase,Urine Negative (Negative); Mucus,Urine Rare /hpf; Nitrite,Urine Negative (Negative); PH, Urine 5.5 (5.0-8.0); Protein,Urine Negative (Negative); RBC,Urine 3 /hpf (0-5); Squamous Epithelial Cell,Urine <1 /hpf (0-4); Urobilinogen,Urine <2.0 mg/dL (<2.0); WBC,Urine 1 /hpf (0-5)
--- NOTE | 2017-07-08 19:18 | XR ---
EXAMINATION TYPE: XR chest 1V portable DATE OF EXAM: 07/08/2017 COMPARISON: 02/17/2017 HISTORY: Shortness of breath TECHNIQUE: Single frontal view of the chest is obtained. FINDINGS: There is no focal air space opacity, pleural effusion, or pneumothorax seen. The cardiac silhouette size is within normal limits. The osseous structures are intact. Mild multilevel degener ative changes of the thoracic spine and acromio clavicular joints are noted. IMPRESSION: No acute cardiopulmonary process.
--- NOTE | 2017-07-08 20:03 | P.CNNES ---
History of Present Illness Consult date: 07/08/17 History of Present Illness: The patient is a 61-year-old left-handed white female who states that on Wednesday she made ribs. She immediately experienced ulcer-type sensations with nausea and vomiting. She's had such episodes in the past but not so severely. It lasted for about 3 days until she came to the hospital this morning. She states she's been having nausea and vomiting without any abdominal pain. The patient denies any neurologic symptoms. She denied any focal weakness numbness visual disturbance dizziness vertigo lightheadedness or headache. The patient had a CAT scan of the brain in the emergency room which did not show any acute abnormality. Neurology is requested to see the patient regarding nausea and vomiting. Review of Systems Constitutional: Denies chills, Denies fever Ears, nose, mouth and throat: Denies headache, Denies sore throat Cardiovascular: Denies chest pain, Denies shortness of breath Respiratory: Denies cough Gastrointestinal: Denies abdominal pain, Denies diarrhea, Denies nausea, Denies vomiting Musculoskeletal: Denies myalgias Integumentary: Denies pruritus, Denies rash Neurological: Reports as per HPI Psychiatric: Denies anxiety, Denies depression Past Medical History Past Medical History: Chest Pain / Angina, GERD/Reflux, Hypertension, Myocardial Infarction ([place]), Pneumonia, Thyroid Disorder Additional Past Medical History / Comment(s): Recent upper respiratory infection , "2012 electrical heart attack", PUD, hypothyroid, low back pain, past migraines, lt foot fx with surgery, rib fx, diverticulosis dx/benign polyp.stress test 02-17-17 Last Myocardial Infarction Date:: 2012 History of Any Multi-Drug Resistant Organisms: None Reported Past Surgical History: Back Surgery, Heart Catheterization, Orthopedic Surgery, Tonsillectomy, Tubal Ligation Additional Past Surgical History / Comment(s): 2012 cardiac cath-normal, colonoscopy/benign polypectomy, ORIF LT FT, back x2 Past Anesthesia/Blood Transfusion Reactions: No Reported Reaction Additional Past Anesthesia/Blood Transfusion Reaction / Comment(s): no hx blood transfusion Smoking Status: Former smoker - Past Family History Mother Family Medical History: No Reported History Additional Family Medical History / Comment(s): Mother was healthy and lived to be 92 yrs. old. Father History Unknown: Yes Family Medical History: No Reported History Medications and Allergies Home Medications Medication Instructions Recorded Confirmed Type Levothyroxine Sodium [Levoxyl] 88 mcg PO QAM 08/15/14 07/08/17 History Metoprolol Succinate (ER) [Toprol 25 mg PO DAILY 02/17/17 07/08/17 History XL] ALPRAZolam [Xanax] 0.5 mg PO TID PRN 07/08/17 07/08/17 History Citalopram Hydrobromide [CeleXA] 40 mg PO DAILY 07/08/17 07/08/17 History Varenicline [Chantix Continuing 1 mg PO BID 07/08/17 07/08/17 History Pack] Allergies Allergy/AdvReac Type Severity Reaction Status Date / Time Sulfa (Sulfonamide Allergy Rash/Hives Verified 07/08/17 07:48 Antibiotics) Physical Examination - Vital Signs Vital Signs: Vital Signs Temp Pulse Resp BP Pulse Ox 07/08/17 18:42 16 07/08/17 18:02 16 07/08/17 14:36 100.2 F H 85 18 145/70 96 07/08/17 13:00 88 16 123/72 98 07/08/17 11:00 77 18 131/70 97 07/08/17 09:00 78 16 136/72 96 07/08/17 07:26 97.3 F L 116 H 20 162/96 96 Intake and Output 07/08/17 07/08/17 07/08/17 06:59 14:59 22:59 Intake Total 20 Balance 20 Intake: Oral 20 Other: Voiding Method Toilet Weight 63.503 kg - Constitutional General appearance: average body habitus, cooperative - Cardiovascular Cardiovascular: regular rate - Neurologic Mental status: She was awake alert and oriented 3 her speech was fluent there was no a aphasia or dysarthria Cranial nerve examination: face symmetric, tongue midline Speech examination: intact Sensorimotor examination: intact Detailed motor examination: grossly full strength in all extremities Results - Laboratory Findings CBC and BMP: 07/08/17 07:50 07/08/17 07:50 Abnormal Lab Findings: Abnormal Labs 07/08/17 07/08/17 07/08/17 07:50 07:50 17:53 WBC 14.2 H RBC 5.62 H Hct 46.4 H Neutrophils # 11.6 H Sodium 133 L Chloride 96 L Carbon Dioxide 15 L BUN 37 H Creatinine 1.19 H Glucose 139 H Calcium 10.5 H Total Protein 8.9 H Amylase 120 H Urine Ketones 1+ H Urine Blood Small H Urine Mucus Rare H Assessment and Plan (1) Intractable nausea and vomiting Current Visit: Yes Status: Acute SNOMED Code(s): 495240221 (2) Dehydration Current Visit: Yes Status: Acute SNOMED Code(s): 53690921 Plan: The patient is a 61-year-old woman with known history of gastric ulcer who presents to the hospital with 3 days of nausea and vomiting after eating spare ribs. She states she's had similar symptoms in the past but this time this attack was prolonged for 3 days. She denied abdominal pain. She has been evaluated in the past and found to have a gastric ulcer. She was on Prilosec but her insurance stopped covering it and she had to stop taking the medication 6 months ago. She denied any neurologic complaints such as headache, dizziness , vertigo, weakness, or numbness, visual changes or speech disturbance. Her neurologic exam is nonfocal. She has had a CAT scan of the brain in the emergency room which did not show any acute findings. Recommend GI consultation for intractable nausea vomiting.
[2017-07-08] MEDS: ONDANSETRON 4 MG/2 ML VIAL IVP PRN (21:03)
--- NOTE | 2017-07-08 22:42 | P.HPIM ---
History of Present Illness H&P Date: 07/08/17 Chief Complaint: Nausea and vomiting Patient is a 61-year-old female with known history of GERD, hypertension, history of HI no PCI, hypothyroidism and multiple other medical problems came to ER with complaints of nausea vomiting intractable for the past 3 days. Patient otherwise denied any blood in the vomit. Denied any dark-colored stools. Unable to tolerate any oral diet. Symptoms started since last Wednesday. Patient says that she does have a history of peptic ulcer disease. No recent illnesses or sick contacts. Denied any constipation or diarrhea. No complaints of chest pain or shortness of breath. Patient felt dizziness and intractable nausea and vomiting which made her to come to ER. Patient denied any numbness or tingling. No focal weakness and facial droop. No blurry vision or headache. CT head showed no acute intracranial process KUB x-ray showed normal bowel gas pattern Review of Systems Constitutional: Patient denies any fever or chills . No generalized weakness or weight loss. Abdomen: Patient does have nausea and vomiting. No abdominal pain. No diarrhea no constipation Cardiovascular: Patient denies any chest pain or short of breath no palpitations. Respiratory: patient denied any cough is from production. No shortness of breath Neurologic: Patient denied any numbness or tingling headache. Patient does have dizziness Musculoskeletal: Patient denies any complaints of joint swelling or deformity. Skin: Negative Psychiatric: Negative Endocrine: No heat or cold intolerance. No recent weight gain. Genitourinary: No dysuria or hematuria. All other 14 point ROS negative except the above Past Medical History Past Medical History: Chest Pain / Angina, GERD/Reflux, Hypertension, Myocardial Infarction ([place]), Pneumonia, Thyroid Disorder Additional Past Medical History / Comment(s): Recent upper respiratory infection , "2012 electrical heart attack", PUD, hypothyroid, low back pain, past migraines, lt foot fx with surgery, rib fx, diverticulosis dx/benign polyp.stress test 02-17-17 Last Myocardial Infarction Date:: 2012 History of Any Multi-Drug Resistant Organisms: None Reported Past Surgical History: Back Surgery, Heart Catheterization, Orthopedic Surgery, Tonsillectomy, Tubal Ligation Additional Past Surgical History / Comment(s): 2013 cardiac cath-normal, colonoscopy/benign polypectomy, ORIF LT FT, back x2 Past Anesthesia/Blood Transfusion Reactions: No Reported Reaction Additional Past Anesthesia/Blood Transfusion Reaction / Comment(s): no hx blood transfusion Smoking Status: Former smoker - Past Family History Mother Family Medical History: No Reported History Additional Family Medical History / Comment(s): Mother was healthy and lived to be 92 yrs. old. Father History Unknown: Yes Family Medical History: No Reported History Medications and Allergies Home Medications Medication Instructions Recorded Confirmed Type Levothyroxine Sodium [Levoxyl] 88 mcg PO QAM 08/15/14 07/08/17 History Metoprolol Succinate (ER) [Toprol 25 mg PO DAILY 02/17/17 07/08/17 History XL] ALPRAZolam [Xanax] 0.5 mg PO TID PRN 07/08/17 07/08/17 History Citalopram Hydrobromide [CeleXA] 40 mg PO DAILY 07/08/17 07/08/17 History Varenicline [Chantix Continuing 1 mg PO BID 07/08/17 07/08/17 History Pack] Allergies Allergy/AdvReac Type Severity Reaction Status Date / Time Sulfa (Sulfonamide Allergy Rash/Hives Verified 07/08/17 07:48 Antibiotics) Physical Exam Vitals: Vital Signs Temp Pulse Resp BP Pulse Ox 07/08/17 18:42 16 07/08/17 18:02 16 07/08/17 14:36 100.2 F H 85 18 145/70 96 07/08/17 13:00 88 16 123/72 98 07/08/17 11:00 77 18 131/70 97 07/08/17 09:00 78 16 136/72 96 07/08/17 07:26 97.3 F L 116 H 20 162/96 96 Intake and Output 07/08/17 07/08/17 07/08/17 06:59 14:59 22:59 Intake Total 20 Balance 20 Intake: Oral 20 Other: Voiding Method Toilet # Voids 3 Weight 63.503 kg PHYSICAL EXAMINATION: Patient is lying in the bed comfortably, mild distress, awake alert and oriented.. HEENT: Normocephalic. Neck is supple. Pupils reactive. Nostrils clear. Oral cavity is moist. Ears reveal no drainage. Neck reveals no JVD, carotid bruits, or thyromegaly. CHEST EXAMINATION: Trachea is central. Symmetrical expansion. Lung walter clear to auscultation and percussion. CARDIAC: Normal S1, S2 with no gallops. No murmurs ABDOMEN: Soft. Bowel sounds normal. No organomegaly. No abdominal bruits. Extremities: reveal no edema. No clubbing or cyanosis Neurologically awake, alert, oriented x3 with well-coordinated movements. No focal deficits noted Skin: No rash or skin lesions. Psychiatric: Coperative. Nonsuicidal Musculoskeletal: No joint swelling or deformity. Normal range of motion. Results CBC & Chem 7: 07/08/17 07:50 07/08/17 07:50 Labs: Abnormal Lab Results - Last 24 Hours (Table) 07/08/17 07/08/17 07/08/17 Range/Units 07:50 07:50 17:53 WBC 14.2 H (3.8-10.6) k/uL RBC 5.62 H (3.80-5.40) m/uL Hct 46.4 H (34.0-46.0) % Neutrophils # 11.6 H (1.3-7.7) k/uL Sodium 133 L (137-145) mmol/L Chloride 96 L (98-107) mmol/L Carbon Dioxide 15 L (22-30) mmol/L BUN 37 H (7-17) mg/dL Creatinine 1.19 H (0.52-1.04) mg/dL Glucose 139 H (74-99) mg/dL Calcium 10.5 H (8.4-10.2) mg/dL Total Protein 8.9 H (6.3-8.2) g/dL Amylase 120 H (30-110) U/L Urine Ketones 1+ H (Negative) Urine Blood Small H (Negative) Urine Mucus Rare H (None) /hpf Thrombosis Risk Factor Assmnt - DVT/VTE Prophylaxis DVT/VTE Prophylaxis: Pharmacologic Prophylaxis ordered, Mechanical Prophylaxis ordered - Choose All That Apply Each Factor Represents 1 point: Age 41-60 years Other Risk Factors: No Thrombosis Risk Factor Assessment Total Risk Factor Score: 1 Thrombosis Risk Factor Assessment Level: Low Risk Assessment and Plan Assessment: Intractable nausea and vomiting likely due to gastritis and possible peptic ulcer disease Hypovolemic hyponatremia Anion gap metabolic acidosis Acute kidney injury most likely prerenal Leukocytosis likely reactive. GERD History of HI. No PCI Hypothyroidism History of diverticulosis Chronic low back pain Hypertension Degenerative joint disease History of colonoscopy and benign polypectomy DVT prophylaxis Plan: Patient will be continued IV hydration and Protonix IV. Symptomatic management for nausea and vomiting. Continue to follow closely. GI consult due to history of peptic ulcer disease. Will repeat BMP tomorrow. Further management based on the clinical course and continue the home medications otherwise. Time with Patient: Greater than 30
[2017-07-08] MEDS: TRIMETHOBENZAMIDE 100 MG/ML 2 ML VIAL IM PRN (23:05)
[2017-07-08] MEDS: PANTOPRAZOLE 40 MG/10 ML VIAL IV SCH (23:11)
[2017-07-09] MEDS: SODIUM CHLORIDE 0.9% 1,000 ML IV SCH ×2 (05:21→12:30)
[2017-07-09] MEDS: LEVOTHYROXINE 88 MCG TAB PO SCH (05:25)
[2017-07-09] MEDS: ONDANSETRON 4 MG/2 ML VIAL IVP PRN ×3 (05:25→21:21)
[2017-07-09] MEDS: ALPRAZolam 0.5 MG TAB PO PRN ×2 (05:55→14:45)
[2017-07-09] MEDS: TRIMETHOBENZAMIDE 100 MG/ML 2 ML VIAL IM PRN ×2 (06:26→16:09)
[2017-07-09] MEDS: METOPROLOL SUCCINATE (ER) 25 MG TAB.ER.24H PO SCH (08:47)
[2017-07-09] MEDS: CITALOPRAM HYDROBROMIDE 20 MG TAB PO SCH (08:47)
[2017-07-09] MEDS: PANTOPRAZOLE 40 MG/10 ML VIAL IV SCH (08:48)
[2017-07-09 08:54] LABS: Basophils % (A) 0 %; Eosinophils # (A) 0.1 k/uL (0-0.7); Eosinophils % (A) 1 %; HCT 39.1 % (34.0-46.0); HGB 13.1 gm/dL (11.4-16.0); Lymphocytes # (A) 1.1 k/uL (1.0-4.8); Lymphocytes % (A) 12 %; MCH 28.7 pg (25.0-35.0); MCHC 33.6 g/dL (31.0-37.0); MCV 85.6 fL (80.0-100.0); Mean Platelet Volume 6.6; Monocytes # (A) 0.6 k/uL (0-1.0); Monocytes % (A) 6 %; Neutrophils # (A) 6.9 k/uL (1.3-7.7); Neutrophils % (A) 79 %; Platelet Count 230 k/uL (150-450); RBC 4.57 m/uL (3.80-5.40); RDW 12.8 % (11.5-15.5); WBC 8.8 k/uL (3.8-10.6)
[2017-07-09 08:56] LABS: Anion Gap 11 mmol/L; Blood Urea Nitrogen 15 mg/dL (7-17); Calcium 8.7 mg/dL (8.4-10.2); Carbon Dioxide 23 mmol/L (22-30); Chloride 106 mmol/L (98-107); Glucose 93 mg/dL (74-99); Potassium 3.6 mmol/L (3.5-5.1); Sodium 140 mmol/L (137-145)
[2017-07-09] MEDS ORDERED: PANTOPRAZOLE 40 MG/10 ML VIAL IV SCH (09:00)
[2017-07-09] MEDS ORDERED: SCOPOLAMINE 1.5MG/72HR PATCH TRANSDERM STA (09:36)
--- NOTE | 2017-07-09 09:38 | P.CONS ---
History of Present Illness - Reason for Consult Consult date: 07/09/17 Nausea Requesting physician: Robbin Valenzuela - History of Present Illness 61-year-old female PMH GERD, hypertension, ID, hypothyroidism, migraines, admitted with profound nausea had heaviness x 4 days. Consult requested for nausea. Patient states she made a rib dinner on Wednesday but she got food poisoning and however her developed no symptoms. She denies abdominal pain fever chills diarrhea hematemesis hematochezia or melena. Should a few episodes of nonbloody emesis. Mostly complains of profound nausea. No recent EGD however colonoscopy was performed January 2017 low-grade internal hemorrhoids no evidence of diverticulosis hepatic flexure polypectomy. Admission white count 14.2 presently 8.8. Hemoglobin 15.9 presently 13.1. BUN 37. Creatinine 1.1 presently 15 and 0.6 respectively. LFTs within normal limits. Lipase 62. Family quit smoking has been on Chantix for 8 weeks also recently placed on Celexa. CT brain no evidence of acute process. Review of Systems Constitutional: Denies fever, chills, sweats, weight gain, or loss. Reports had a heaviness profound nausea. HEENT: Negative for migraines, blurred vision or loss, earaches, drainage, tinnitus, oral mucosal lesions, dysphagia, or odynophagia. CARDIAC: Negative for chest pain, arrhythmias, or palpitation. RESPIRATORY: Negative for shortness of breath, hemoptysis, cough, or sputum production. GI: See HPI for pertinent findings. : Negative for hematuria, urgency, frequency, polyuria, or dysuria. GYNc: Negative vaginal discharge. MUSCULOSKELETAL: Negative for muscle aches, swelling, arthritis, and arthralgias. NEUROLOGIC: Negative for stroke or TIA. ENDOCRINE: Negative for thyroid problems. SKIN: Negative for rash or itching. 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", PUD, hypothyroid, low back pain, past migraines, lt foot fx with surgery, rib fx, diverticulosis dx/benign polyp.stress test 02-17-17 Last Myocardial Infarction Date:: 2012 History of Any Multi-Drug Resistant Organisms: None Reported Past Surgical History: Back Surgery, Heart Catheterization, Orthopedic Surgery, Tonsillectomy, Tubal Ligation Additional Past Surgical History / Comment(s): 2012 cardiac cath-normal, colonoscopy/benign polypectomy, ORIF LT FT, back x2 Past Anesthesia/Blood Transfusion Reactions: No Reported Reaction Additional Past Anesthesia/Blood Transfusion Reaction / Comm: no hx blood transfusion Smoking Status: Former smoker - Past Family History Mother Family Medical History: No Reported History Additional Family Medical History / Comment(s): Mother was healthy and lived to be 92 yrs. old. Father History Unknown: Yes Family Medical History: No Reported History Medications and Allergies Home Medications Medication Instructions Recorded Confirmed Type Levothyroxine Sodium [Levoxyl] 88 mcg PO QAM 08/15/14 07/08/17 History Metoprolol Succinate (ER) [Toprol 25 mg PO DAILY 02/17/17 07/08/17 History XL] ALPRAZolam [Xanax] 0.5 mg PO TID PRN 07/08/17 07/08/17 History Citalopram Hydrobromide [CeleXA] 40 mg PO DAILY 07/08/17 07/08/17 History Varenicline [Chantix Continuing 1 mg PO BID 07/08/17 07/08/17 History Pack] Allergies Allergy/AdvReac Type Severity Reaction Status Date / Time Sulfa (Sulfonamide Allergy Rash/Hives Verified 07/08/17 07:48 Antibiotics) Physical Exam Vitals: Vital Signs Temp Pulse Pulse Resp BP BP Pulse Ox 07/09/17 06:52 99.1 F 74 16 168/86 98 07/09/17 00:33 98 F 89 120/68 07/08/17 23:00 99.1 F 98 24 180/94 99 07/08/17 18:45 100.2 F H 80 16 169/82 95 07/08/17 18:42 16 07/08/17 18:02 16 07/08/17 14:36 100.2 F H 85 18 145/70 96 07/08/17 13:00 88 16 123/72 98 07/08/17 11:00 77 18 131/70 97 Intake and Output 07/08/17 07/09/17 07/09/17 22:59 06:59 14:59 Intake Total 20 Balance 20 Intake: Oral 20 Other: Voiding Method Toilet # Voids 3 3 General appearance: The patient is alert, oriented, in no acute distress. HET: Head is normocephalic and atraumatic. Pupils are equal and reactive. Oropharynx is clear without lesions. Neck: Supple without lymphadenopathy. Trachea midline. Heart: S1 S2. Regular rate and rhythm. Lungs: No crackles or wheezes are heard. Abdomen: Soft, nontender, nondistended with bowel sounds. No peritoneal signs. No palpable organomegaly or masses. Extremities: Normal skin color and turgor. No cyanosis, rash, ulceration, clubbing, or edema. Radial and pedal pulses are 2/4 bilaterally. Neurological: No focal deficits. Strength and sensation are grossly intact. Results CBC & Chem 7: 07/09/17 07:57 07/09/17 07:57 Labs: Abnormal Lab Results - Last 24 Hours (Table) 07/08/17 07/09/17 Range/Units 17:53 00:32 Plasma Lactic Acid Yg 0.6 L (0.7-2.0) mmol/L Urine Ketones 1+ H (Negative) Urine Blood Small H (Negative) Urine Mucus Rare H (None) /hpf Assessment and Plan (1) Intractable nausea and vomiting Narrative/Plan: Possible gastroenteritis possible dehydration effect. Renal function improved with IV hydration. Current Visit: Yes Status: Acute Code(s): R11.2 - NAUSEA WITH VOMITING, UNSPECIFIED SNOMED Code(s): 155937776 (2) Dehydration Current Visit: Yes Status: Acute Code(s): E86.0 - DEHYDRATION SNOMED Code( s): 27466761 (3) Elevated BUN Current Visit: Yes Status: Acute Code(s): R79.9 - ABNORMAL FINDING OF BLOOD CHEMISTRY, UNSPECIFIED SNOMED Code(s): 701457371 (4) Elevated serum creatinine Current Visit: Yes Status: Acute Code(s): R79.89 - OTHER SPECIFIED ABNORMAL FINDINGS OF BLOOD CHEMISTRY SNOMED Code(s): 282138755 Plan: 1. Continue with antinausea medications with slow advancement of diet as tolerated. If she does not improve clinically we'll consider EGD evaluation for now continue with supportive measures PPI prophylaxis. We'll follow closely with you. Thank you for this kind referral and the opportunity to participate in the care of your patient. This consultation was discussed with Dr. Bright. The impression and plan of care have been directed as dictated.
[2017-07-09] MEDS: METOCLOPRAMIDE 5 MG/ML 2 ML VIAL IVP PRN ×2 (12:27→21:21)
--- NOTE | 2017-07-10 00:36 | P.PN ---
Subjective Progress Note Date: 07/09/17 Principal diagnosis: Intractable nausea and vomiting Patient is a 61-year-old female with known history of GERD, hypertension, history of [place] no PCI, hypothyroidism and multiple other medical problems came to ER with complaints of nausea vomiting intractable for the past 3 days. Patient otherwise denied any blood in the vomit. Denied any dark-colored stools. Unable to tolerate any oral diet. Symptoms started since last Wednesday. Patient says that she does have a history of peptic ulcer disease. No recent illnesses or sick contacts. Denied any constipation or diarrhea. No complaints of chest pain or shortness of breath. Patient felt dizziness and intractable nausea and vomiting which made her to come to ER. Patient denied any numbness or tingling. No focal weakness and facial droop. No blurry vision or headache. CT head showed no acute intracranial process KUB x-ray showed normal bowel gas pattern 07/09/2017 Patient did improve symptomatically. Tolerating oral diet slowly. Laboratory data as much improved today. GI has seen the patient and recommended conservative management at this time. Otherwise no chest pain no shortness of breath. No abdominal pain today. No fever no chills. Otherwise all other review of systems negative except the above current medications reviewed Objective - Vital Signs Vital signs: Vital Signs Temp 99.1 F 07/09/17 14:15 Pulse 76 07/09/17 14:15 Resp 16 07/09/17 14:15 BP 134/74 07/09/17 14:15 Pulse Ox 98 07/09/17 14:15 Intake & Output 07/09/17 07/09/17 07/10/17 06:59 18:59 06:59 Intake Total 1200 500 Balance 1200 500 Intake: Oral 1200 500 Other: Voiding Method Toilet # Voids 3 3 2 - Exam PHYSICAL EXAMINATION: Patient is lying in the bed comfortably, no acute distress, awake alert and oriented.. HEENT: Normocephalic. Neck is supple. Pupils reactive. Nostrils clear. Oral cavity is moist. Ears reveal no drainage. Neck reveals no JVD, carotid bruits, or thyromegaly. CHEST EXAMINATION: Trachea is central. Symmetrical expansion. Lung walter clear to auscultation and percussion. CARDIAC: Normal S1, S2 with no gallops. No murmurs ABDOMEN: Soft. Bowel sounds normal. No organomegaly. No abdominal bruits. Extremities: reveal no edema. No clubbing or cyanosis Neurologically awake, alert, oriented x3 with well-coordinated movements. No focal deficits noted Skin: No rash or skin lesions. Psychiatric: Coperative. Nonsuicidal Musculoskeletal: No joint swelling or deformity. Normal range of motion. - Labs CBC & Chem 7: 07/09/17 07:57 07/09/17 07:57 Labs: Abnormal Lab Results - Last 24 Hours (Table) 07/09/17 Range/Units 00:32 Plasma Lactic Acid Yg 0.6 L (0.7-2.0) mmol/L Assessment and Plan Assessment: Intractable nausea and vomiting likely due to gastritis and possible peptic ulcer disease Dizziness likely due to dehydration and volume depletion. CT head negative. Hypovolemic hyponatremia. Improved Anion gap metabolic acidosis Acute kidney injury most likely prerenal. Resolved Leukocytosis likely reactive. Resolved GERD History of [place]. No PCI Hypothyroidism History of diverticulosis Chronic low back pain Hypertension Degenerative joint disease History of colonoscopy and benign polypectomy DVT prophylaxis Plan: Patient will be continued IV hydration and Protonix IV. Symptomatic management for nausea and vomiting. Continue to follow closely. GI is following. We will start on liquid diet and advance as tolerated.. Further management based on the clinical course and continue the home medications otherwise. Time with Patient: Greater than 30
[2017-07-10] MEDS: SODIUM CHLORIDE 0.9% 1,000 ML IV SCH ×2 (00:45→12:15)
[2017-07-10 01:23] VITALS: RESP 18; TEMP 98.5
[2017-07-10] MEDS: LEVOTHYROXINE 88 MCG TAB PO SCH (06:22)
[2017-07-10] MEDS: ONDANSETRON 4 MG/2 ML VIAL IVP PRN (06:24)
[2017-07-10 06:34] VITALS: BP 148/84; PULSE 64
[2017-07-10] MEDS: PANTOPRAZOLE 40 MG/10 ML VIAL IV SCH (08:26)
[2017-07-10] MEDS: CITALOPRAM HYDROBROMIDE 20 MG TAB PO SCH (08:26)
[2017-07-10] MEDS: METOPROLOL SUCCINATE (ER) 25 MG TAB.ER.24H PO SCH (08:26)
[2017-07-10] MEDS: ALPRAZolam 0.5 MG TAB PO PRN (08:30)
--- NOTE | 2017-07-10 10:45 | PN ---
PROGRESS NOTE DATE OF SERVICE: 07/10/2017 Patient is a 61-year-old pleasant white female admitted to the hospital with severe persistent nausea for the last 4 days duration. She has been having extreme amount of dry heaves following dinner on Wednesday night. She was started on Protonix and IV antiemetics and she is feeling much better this morning. In fact, she was able to eat a solid breakfast, tolerating well and requesting for the diet to be advanced further. She denies any abdominal pain. No emesis. Overall, she is feeling much better. PHYSICAL EXAMINATION: She appears comfortable, in no apparent distress. Vital signs are stable. Blood pressure is 168/86, pulse is 74, temperature 99.1. HEENT examination unremarkable, conjunctivae are pink, sclerae nonicteric, oral cavity no lesions. NECK: No JVD or lymph node enlargement. Chest was clear to auscultation. HEART: Regular rate and rhythm. Abdomen is soft, nontender, nondistended. Bowel sounds are positive. No organomegaly. EXTREMITIES: No pedal edema. SKIN: No rashes. NEURO: Alert and oriented x3. No focal deficits. LABS: From yesterday WBC 14.2, hemoglobin 15.9 and platelets are normal. Today, WBC 8.8, hemoglobin 13.1, and platelets are normal. Basic metabolic panel is within normal limits. IMPRESSION: 1. Severe nausea/emesis for the last 5 days' duration. Presently on proton pump inhibitors and antiemetics and her symptoms are significantly improved. This morning, she feels much better, tolerating regular diet well. 2. Acute kidney injury secondary to dehydration from nausea, vomiting, which has resolved. 3. Leukocytosis, resolved. Blood cultures were negative. RECOMMENDATIONS: Since the symptoms have improved, advance diet as tolerated. Continue with Protonix 40 mg daily. No need for any endoscopy procedures at the present time. We will sign off. Please call us if needed. Thank you for this consultation. MMODL / IJN: [id number] /
--- NOTE | 2017-07-10 22:55 | P.DS ---
Providers Date of admission: 07/08/17 11:48 Expected date of discharge: 07/10/17 Attending physician: Robbin Valenzuela Consults: 07/08/17 11:47 Consult Physician Stat Consulting Provider: Delia Bae Consult Reason/Comments: Dizziness and intractable nausea and vomiting Do you want consulting provider notified?: Yes 07/08/17 22:32 Consult Physician Routine Consulting Provider: Jacques Turcios Consult Reason/Comments: Intractable nausea and vomiting Do you want consulting provider notified?: Yes Primary care physician: Edmar [facility] Course: Discharge diagnosis Intractable nausea and vomiting likely due to gastritis and possible peptic ulcer disease. Improved Dizziness likely due to dehydration and volume depletion. CT head negative. Hypovolemic hyponatremia. Improved Anion gap metabolic acidosis Acute kidney injury most likely prerenal. Resolved Leukocytosis likely reactive. Resolved GERD History of [place]. No PCI Hypothyroidism History of diverticulosis Chronic low back pain Hypertension Degenerative joint disease History of colonoscopy and benign polypectomy DVT prophylaxis Hospital course Patient is a 61-year-old female with known history of GERD, hypertension, history of [place] no PCI, hypothyroidism and multiple other medical problems came to ER with complaints of nausea vomiting intractable for the past 3 days. Patient otherwise denied any blood in the vomit. Denied any dark-colored stools. Unable to tolerate any oral diet. Symptoms started since last Wednesday. Patient says that she does have a history of peptic ulcer disease. No recent illnesses or sick contacts. Denied any constipation or diarrhea. No complaints of chest pain or shortness of breath. Patient felt dizziness and intractable nausea and vomiting which made her to come to ER. Patient denied any numbness or tingling. No focal weakness and facial droop. No blurry vision or headache. CT head showed no acute intracranial process KUB x-ray showed normal bowel gas pattern 07/09/2017 Patient did improve symptomatically. Tolerating oral diet slowly. Laboratory data as much improved today. GI has seen the patient and recommended conservative management at this time. Otherwise no chest pain no shortness of breath. No abdominal pain today. No fever no chills. Otherwise all other review of systems negative except the above 07/10/2017. Patient denied any complains of nausea vomiting or abdominal pain today. Tolerating oral diet and was to be discharged. Patient was continued IV hydration and Protonix IV. Symptomatic management for nausea and vomiting. Continue to follow closely. GI has seen the patient. Patient did improve with the above management and was started on liquid diet and advance as tolerated.. Patient is tolerating oral diet and denied any complaints today. Discharge physical examination was done Vital Signs - 24 hr 07/09/17 07/10/17 07/10/17 23:00 06:15 08:00 Temperature 98.5 F 98.5 F Pulse Rate [ 60 64 64 Pulse Oximetery ] Respiratory 18 18 18 Rate Blood Pressure 131/76 148/84 [Right Arm] O2 Sat by Pulse 96 97 Oximetry Patient Condition at Discharge: Good Plan - Discharge Summary Discharge Rx Participant: No New Discharge Prescriptions: New Pantoprazole Sodium [Protonix] 40 mg PO AC-BRKFST #30 tablet. Continue Levothyroxine Sodium [Levoxyl] 88 mcg PO QAM Metoprolol Succinate (ER) [Toprol XL] 25 mg PO DAILY Varenicline [Chantix Continuing Pack] 1 mg PO BID Citalopram Hydrobromide [CeleXA] 40 mg PO DAILY ALPRAZolam [Xanax] 0.5 mg PO TID PRN PRN Reason: Anxiety Discharge Medication List Levothyroxine Sodium [Levoxyl] 88 mcg PO QAM 08/15/14 [History] Metoprolol Succinate (ER) [Toprol XL] 25 mg PO DAILY 02/17/17 [History] ALPRAZolam [Xanax] 0.5 mg PO TID PRN 07/08/17 [History] Citalopram Hydrobromide [CeleXA] 40 mg PO DAILY 07/08/17 [History] Varenicline [Chantix Continuing Pack] 1 mg PO BID 07/08/17 [History] Pantoprazole Sodium [Protonix] 40 mg PO AC-BRKFST #30 tablet. 07/10/17 [Rx] Follow up Appointment(s)/Referral(s): Edmar Holder III, MD [Primary Care Provider] - 1 Week Patient Instructions/Handouts: Gastritis (DC) Activity/Diet/Wound Care/Special Instructions: Cardiac diet (soft and bland until feeling better) Activity as tolerated. Discharge Disposition: HOME SELF-CARE
== END 2017-07-10 13:18 | disposition home or self-care (01) ==
LOC: EC 07:24 → 3OBS 11:48 → 4MS4W 15:08
PROVIDERS: ADMIT Hospitalist; ATTEND Hospitalist
DX: R11.2 Nausea with vomiting, unspecified (principal); K29.70 Gastritis, unspecified, without bleeding; R42 Dizziness and giddiness; E86.9 Volume depletion, unspecified; E86.0 Dehydration; E86.1 Hypovolemia; E87.1 Hypo-osmolality and hyponatremia; E87.2 Acidosis; N17.9 Acute kidney failure, unspecified; D72.829 Elevated white blood cell count, unspecified; K21.9 Gastro-esophageal reflux disease without esophagitis; I25.2 Old myocardial infarction; E03.9 Hypothyroidism, unspecified; K57.90 Diverticulosis of intestine, part unspecified, without perforation or abscess without bleeding; G89.29 Other chronic pain; M54.5 Low back pain; I10 Essential (primary) hypertension; M19.90 Unspecified osteoarthritis, unspecified site; Z87.11 Personal history of peptic ulcer disease; Z87.01 Personal history of pneumonia (recurrent); Z87.891 Personal history of nicotine dependence; Z79.899 Other long term (current) drug therapy; Z79.890 Hormone replacement therapy; Z88.2 Allergy status to sulfonamides
CPT/HCPCS: 99285; 96374 ×2; 96375 ×5; 96361 ×15; 96376 ×5; 96372 ×2; 36415; 80053; 80048; 82150; 83605; 83690; 85025 ×2; 86140; 81001; 87040; 74022; 71045; 70450; G0378 ×4; J2060; J2765 ×2; J3250 ×2; J2405 ×3; C9113 ×3

== ENCOUNTER 2017-07-31 13:43 | Emergency (ER) | payer BC ==
[2017-07-31 14:17] VITALS: RESP 16; TEMP 98.1
[2017-07-31 14:27] LABS: Appearance,Urine Clear (Clear); Bilirubin,Urine Negative (Negative); Blood,Urine Large (Negative); Color,Urine Light Yellow; Glucose,Urine (UA) Negative (Negative); Ketones,Urine Negative (Negative); Leukocyte Esterase,Urine Trace (Negative); Mucus,Urine Rare /hpf; Nitrite,Urine Negative (Negative); PH, Urine 5.5 (5.0-8.0); Protein,Urine Negative (Negative); RBC,Urine 52 /hpf (0-5); Specific Gravity,Urine 1.012 (1.001-1.035); Squamous Epithelial Cell,Urine 1 /hpf (0-4); Urobilinogen,Urine <2.0 mg/dL (<2.0); WBC,Urine 2 /hpf (0-5)
--- NOTE | 2017-07-31 14:46 | ED ---
General Adult HPI - General Chief complaint: Urogenital Stated complaint: Urogenital Time Seen by Provider: 07/31/17 14:02 Source: patient Mode of arrival: ambulatory Limitations: no limitations - History of Present Illness Initial comments: This 62-year-old white female presents with a complaint of hematuria. She states that it initially started 2 days ago and then was clear yesterday. It then occurred 2 times again today. This is a gross hematuria. She had some mild lower abdominal cramping bilaterally and in the midline. There is no flank pain. She denies any frequency urgency or dysuria. She denies any fevers or chills. There is no previous similar incidents. She does not utilize any blood thinners. No other complaints or modifying factors. - Related Data Home Medications Medication Instructions Recorded Confirmed Levothyroxine Sodium [Levoxyl] 88 mcg PO QAM 08/15/14 07/31/17 Metoprolol Succinate (ER) [Toprol 25 mg PO DAILY 02/17/17 07/31/17 XL] ALPRAZolam [Xanax] 0.5 mg PO TID PRN 07/08/17 07/31/17 Citalopram Hydrobromide [CeleXA] 40 mg PO DAILY 07/08/17 07/31/17 Varenicline [Chantix Continuing 1 mg PO BID 07/08/17 07/31/17 Pack] Previous Rx's Medication Instructions Recorded Pantoprazole Sodium [Protonix] 40 mg PO AC-BRKFST #30 tablet. 07/10/17 Allergies Allergy/AdvReac Type Severity Reaction Status Date / Time Sulfa (Sulfonamide Allergy Rash/Hives Verified 07/31/17 14:16 Antibiotics) Review of Systems ROS Statement: Those systems with pertinent positive or pertinent negative responses have been documented in the HPI. ROS Other: All systems not noted in ROS Statement are negative. 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", PUD, hypothyroid, low back pain, past migraines, lt foot fx with surgery, rib fx, diverticulosis dx/benign polyp.stress test 02-17-17 Last Myocardial Infarction Date:: 2012 History of Any Multi-Drug Resistant Organisms: None Reported Past Surgical History: Back Surgery, Heart Catheterization, Orthopedic Surgery, Tonsillectomy, Tubal Ligation Additional Past Surgical History / Comment(s): 2012 cardiac cath-normal, colonoscopy/benign polypectomy, ORIF LT FT, back x2 Past Anesthesia/Blood Transfusion Reactions: No Reported Reaction Additional Past Anesthesia/Blood Transfusion Reaction / Comment(s): no hx blood transfusion Past Psychological History: No Psychological Hx Reported Smoking Status: Former smoker - Past Family History Mother Family Medical History: No Reported History Additional Family Medical History / Comment(s): Mother was healthy and lived to be 92 yrs. old. Father History Unknown: Yes Family Medical History: No Reported History General Exam - General Exam Comments Initial Comments: GENERAL: The patient is well nourished and well hydrated. VITAL SIGNS: Heart rate, blood pressure, respiratory rate reviewed as recorded in nurse's notes. EYES: Pupils are round and reactive. Extraocular movements are intact. No conjunctival / lid redness or swelling. ENT: No external evidence of injury, swelling, or ecchymosis. Airway is patent. Throat is clear. NECK: Nontender. No swelling or evidence of injury. No subcutaneous emphysema. Trachea is midline. No thyroid mass. HEART: Regular rate and rhythm. Good peripheral pulses. LUNGS/CHEST: Breath sounds clear and equal bilaterally. No rales, rhonchi, or wheezes. No ecchymosis, subcutaneous emphysema, or tenderness. ABDOMEN: Abdomen soft without tenderness. No palpable masses or organomegaly. No peritoneal signs. No abdominal wall swelling or ecchymosis. No flank tenderness noted. EXTREMITIES: No extremity tenderness. Normal muscle tone and function. No thoracolumbar tenderness. NEUROLOGIC: Sensation is grossly intact. Cranial nerve exam reveals face is symmetrical, tongue is midline, speech is clear. SKIN: No abrasions or ecchymosis is noted. No induration or masses noted. PSYCHIATRIC: Alert and oriented. Appropriate behavior and judgment. Limitations: no limitations Course Vital Signs 07/31/17 14:13 Temperature 98.1 F Pulse Rate 69 Respiratory 16 Rate Blood Pressure 145/82 O2 Sat by Pulse 99 Oximetry Medical Decision Making - Medical Decision Making The patient was seen and examined. All diagnostics are reviewed. The urinalysis does show hematuria but there is no definite evidence of infection. The laboratory does not show any acute abnormalities. The computed tomography scan of the abdomen and pelvis does show a 10 cm left renal mass. The radiologist notes that this is renal cell cancer until proven otherwise and recommends nonemergent urology consult. The patient was informed of the findings. It is strongly recommended that she follow up with the urologist as soon as possible and she does agree to call first thing this next week for an appointment. All questions were answered. She understands and agrees with this plan and leaves in no distress. She was taking Motrin 800 mg twice a day and she is instructed to stop taking this medication and take Tylenol instead. - Lab Data Result diagrams: 07/31/17 15:25 07/31/17 15:25 Lab Results 07/31/17 07/31/17 07/31/17 Range/Units 14:13 15:25 15:25 WBC 5.0 (3.8-10.6) k/uL RBC 4.33 (3.80-5.40) m/uL Hgb 12.5 (11.4-16.0) gm/dL Hct 38.1 (34.0-46.0) % MCV 88.0 (80.0-100.0) fL MCH 28.9 (25.0-35.0) pg MCHC 32.8 (31.0-37.0) g/dL RDW 13.7 (11.5-15.5) % Plt Count 277 (150-450) k/uL Neutrophils % 63 % Lymphocytes % 24 % Monocytes % 6 % Eosinophils % 3 % Basophils % 1 % Neutrophils # 3.2 (1.3-7.7) k/uL Lymphocytes # 1.2 (1.0-4.8) k/uL Monocytes # 0.3 (0-1.0) k/uL Eosinophils # 0.2 (0-0.7) k/uL Basophils # 0.1 (0-0.2) k/uL Sodium 140 (137-145) mmol/L Potassium 4.3 (3.5-5.1) mmol/L Chloride 104 (98-107) mmol/L Carbon Dioxide 27 (22-30) mmol/L Anion Gap 9 mmol/L BUN 22 H (7-17) mg/dL Creatinine 0.69 (0.52-1.04) mg/dL Est GFR (CKD-EPI)AfAm >90 (>60 ml/min/1.73 sqM) Est GFR (CKD-EPI)NonAf >90 (>60 ml/min/1.73 sqM) Glucose 85 (74-99) mg/dL Calcium 9.2 (8.4-10.2) mg/dL Urine Color Light Yellow Urine Appearance Clear (Clear) Urine pH 5.5 (5.0-8.0) Ur Specific [place] 1.012 (1.001-1.035) Urine Protein Negative (Negative) Urine Glucose (UA) Negative (Negative) Urine Ketones Negative (Negative) Urine Blood Large H (Negative) Urine Nitrite Negative (Negative) Urine Bilirubin Negative (Negative) Urine Urobilinogen <2.0 (<2.0) mg/dL Ur Leukocyte Esterase Trace H (Negative) Urine RBC 52 H (0-5) /hpf Urine WBC 2 (0-5) /hpf Ur Squamous Epith Cells 1 (0-4) /hpf Urine Mucus Rare H (None) /hpf Disposition Clinical Impression: Gross hematuria, Hypertension, Abdominal cramping, Renal mass Disposition: HOME SELF-CARE Condition: Good Instructions: Hematuria (ED), Abdominal Pain (ED), Hypertension (ED) Additional Instructions: We found that you have a mass on her left kidney. Please follow-up with the urologist as soon as possible. Please avoid Motrin and take Tylenol instead if needed for pain. Is patient prescribed a controlled substance at d/c from ED?: No Referrals: Edmar Holder III, MD [Primary Care Provider] - 1-2 days Ruslan Burton MD [STAFF PHYSICIAN] - 08/03/17 Time of Disposition: 16:27
[2017-07-31 15:32] LABS: Basophils # (A) 0.1 k/uL (0-0.2); Basophils % (A) 1 %; Eosinophils # (A) 0.2 k/uL (0-0.7); Eosinophils % (A) 3 %; HCT 38.1 % (34.0-46.0); HGB 12.5 gm/dL (11.4-16.0); Lymphocytes # (A) 1.2 k/uL (1.0-4.8); Lymphocytes % (A) 24 %; MCH 28.9 pg (25.0-35.0); MCHC 32.8 g/dL (31.0-37.0); Mean Platelet Volume 6.5; Monocytes # (A) 0.3 k/uL (0-1.0); Monocytes % (A) 6 %; Neutrophils # (A) 3.2 k/uL (1.3-7.7); Neutrophils % (A) 63 %; Platelet Count 277 k/uL (150-450); RBC 4.33 m/uL (3.80-5.40); RDW 13.7 % (11.5-15.5)
[2017-07-31 15:42] LABS: Anion Gap 9 mmol/L; Blood Urea Nitrogen 22 mg/dL (7-17); Calcium 9.2 mg/dL (8.4-10.2); Carbon Dioxide 27 mmol/L (22-30); Chloride 104 mmol/L (98-107); Glucose 85 mg/dL (74-99); Potassium 4.3 mmol/L (3.5-5.1); Sodium 140 mmol/L (137-145)
--- NOTE | 2017-07-31 16:08 | CT ---
EXAMINATION TYPE: CT abdomen pelvis wo con DATE OF EXAM: 07/31/2017 COMPARISON: NONE HISTORY: Hematuria for [address] DLP: 428.7 mGycm Automated exposure control for dose reduction was used. TECHNIQUE: Helical acquisition of images was performed from the lung bases through the pelvis. FINDINGS: Lack of intravenous and oral contrast limits evaluation of the hollow and solid viscera. LUNG BASES: Bibasilar atelectasis and scattered blebs are noted in the lung bases. LIVER/GB: No significant abnormality is appreciated. Cholelithiasis. PANCREAS: No ductal dilatation. SPLEEN: No significant abnormality is seen. Small splenule seen adjacent to the [place] spleen. ADRENALS: No nodularity or thickening. KIDNEYS: There is an ill-defined large heterogenous left renal mass measuring at least 7.8 x 7.1 x 10 .0 cm. This impresses upon the collecting system with blunting of the left superior calyces. No nephr olithiasis is seen. No hydroureter is noted. No urinary bladder calculi. No right-sided nephrolithias is or hydronephrosis. Right-sided fluid attenuated probable renal cysts are seen within the mid and l ower pole. FREE AIR: No free air is visualized ADENOPATHY: Neck of intravenous contrast limits evaluation for adenopathy. Soft tissue density surro unding the anterior and medial renal margin appear to represent nonenhanced bowel loops rather than a denopathy. Further evaluation with contrast is recommended. URINARY BLADDER: No urinary bladder calculi are identified. OSSEOUS STRUCTURES: Asymmetric sacroiliac joint sclerosis is seen, right greater than left likely de generative in nature. Fixation rods are noted on the right at L5-S1. Moderate multilevel degenerative changes of the spine are seen. There is a dextroscoliotic curvature of the lumbar spine. BOWEL: Numerous colonic diverticula are seen without pericolonic fat stranding. Appendix is air-fill ed and within normal limits. No large or small bowel dilatation. OTHER: Scant amount of dependent free fluid is present. Diastases recti is noted. Moderate calcific a theromatous changes are seen of the abdominal aorta and its branches. IMPRESSION: LARGE LEFT RENAL MASS MEASURING 10.0 CM IN CRANIOCAUDAL DIMENSION THAT SHOULD BE CONSIDER ED RENAL CELL CARCINOMA UNTIL PROVEN OTHERWISE. FULL EVALUATION WITH THREE-PHASE ENHANCED ABDOMINAL C T OR MR IS RECOMMENDED. UROLOGIC NONEMERGENT CONSULTATION IS ALSO RECOMMENDED.
[2017-07-31 16:25] VITALS: BP 127/81; PULSE 60
== END 2017-07-31 16:50 | disposition home or self-care (01) ==
LOC: EC 13:43
DX: R31.0 Gross hematuria (principal); R10.31 Right lower quadrant pain; R10.32 Left lower quadrant pain; I10 Essential (primary) hypertension; N28.89 Other specified disorders of kidney and ureter; I25.2 Old myocardial infarction; E03.9 Hypothyroidism, unspecified; Z87.891 Personal history of nicotine dependence; Z79.899 Other long term (current) drug therapy; Z88.2 Allergy status to sulfonamides; Z95.818 Presence of other cardiac implants and grafts
CPT/HCPCS: 36415; 74176; 80048; 81001; 85025; 99284

== ENCOUNTER 2017-08-03 08:30 | Inpatient (IN) | payer BC ==
[2017-08-03] MEDS ORDERED: ONDANSETRON 4 MG/2 ML VIAL IVP STA ×2 (09:34→11:43)
[2017-08-03] MEDS ORDERED: SODIUM CHLORIDE 0.9% 1,000 ML IV STA ×2 (09:34→11:46)
--- NOTE | 2017-08-03 09:36 | ED ---
General Adult HPI <Adam Thomas - Last Filed: 08/03/17 12:01> - General Source: patient, RN notes reviewed Mode of arrival: wheelchair Limitations: no limitations <Ken Tavares - Last Filed: 08/03/17 12:12> - General Chief complaint: Nausea/Vomiting/Diarrhea Stated complaint: vomiting Time Seen by Provider: 08/03/17 09:30 - History of Present Illness Initial comments: Patient is 62-year-old female presented to the emergency room today with a chief complaint of increased nausea vomiting over the last 2 days. She does not that she was seen recently in the emergency room and diagnosed some hematuria. She states she had a CT. She states she is advised follow-up with urology. States symptoms increase 2 days ago. States that she's had a difficult time keeping anything down. Patient denies any specific pain. She denies any signs of blood in the emesis. She denies any other complaints. Patient denies any recent fever, chills, shortness of breath, chest pain, back pain, numbness or tingling, dysuria or hematuria, constipation or diarrhea, headaches or visual changes, or any other complaints. (Ken Tavares) - Related Data Home Medications Medication Instructions Recorded Confirmed Levothyroxine Sodium [Levoxyl] 88 mcg PO QAM 08/15/14 08/03/17 Metoprolol Succinate (ER) [Toprol 25 mg PO DAILY 02/17/17 08/03/17 XL] ALPRAZolam [Xanax] 0.5 mg PO TID PRN 07/08/17 08/03/17 Citalopram Hydrobromide [CeleXA] 40 mg PO DAILY 07/08/17 08/03/17 Varenicline [Chantix Continuing 1 mg PO BID 07/08/17 08/03/17 Pack] Previous Rx's Medication Instructions Recorded Pantoprazole Sodium [Protonix] 40 mg PO AC-BRKFST #30 tablet. 07/10/17 Allergies Allergy/AdvReac Type Severity Reaction Status Date / Time Sulfa (Sulfonamide Allergy Rash/Hives Verified 08/03/17 10:07 Antibiotics) Review of Systems ROS Other: All systems not noted in ROS Statement are negative. <Adam Thomas - Last Filed: 08/03/17 12:01> ROS Other: All systems not noted in ROS Statement are negative. <ChaitanyaKen - Last Filed: 08/03/17 12:12> ROS Statement: Those systems with pertinent positive or pertinent negative responses have been documented in the HPI. Past Medical History Past Medical History: Chest Pain / Angina, GERD/Reflux, Hypertension, Myocardial Infarction ([place]), Pneumonia, Thyroid Disorder Additional Past Medical History / Comment(s): Recent upper respiratory infection , "2012 electrical heart attack", PUD, hypothyroid, low back pain, past migraines, lt foot fx with surgery, rib fx, diverticulosis dx/benign polyp.stress test 02-17-17 Last Myocardial Infarction Date:: 2012 History of Any Multi-Drug Resistant Organisms: None Reported Past Surgical History: Back Surgery, Heart Catheterization, Orthopedic Surgery, Tonsillectomy, Tubal Ligation Additional Past Surgical History / Comment(s): 2012 cardiac cath-normal, colonoscopy/benign polypectomy, ORIF LT FT, back x2 Past Anesthesia/Blood Transfusion Reactions: No Reported Reaction Additional Past Anesthesia/Blood Transfusion Reaction / Comment(s): no hx blood transfusion Past Psychological History: No Psychological Hx Reported Smoking Status: Former smoker Past Alcohol Use History: None Reported Past Drug Use History: None Reported - Past Family History Mother Family Medical History: No Reported History Additional Family Medical History / Comment(s): Mother was healthy and lived to be 92 yrs. old. Father History Unknown: Yes Family Medical History: No Reported History <ChaitanyaKen - Last Filed: 08/03/17 12:12> General Exam <Adam Thomas - Last Filed: 08/03/17 12:01> Limitations: no limitations <TavaresKen - Last Filed: 08/03/17 12:12> - General Exam Comments Initial Comments: General: The patient is awake and alert, in no distress, and does not appear acutely ill. Eye: Pupils are equal, round and reactive to light, extra-ocular movements are intact. No nystagmus. There is normal conjunctiva bilaterally. No signs of icterus. Ears, nose, mouth and throat: There are moist mucous membranes and no oral lesions. Neck: The neck is supple, there is no tenderness or JVD. Cardiovascular: There is a regular rate and rhythm. No murmur, rub or gallop is appreciated. Respiratory: Lungs are clear to auscultation, respirations are non-labored, breath sounds are equal. No wheezes, stridor, rales, or rhonchi. Gastrointestinal: Soft, non-distended, non-tender abdomen without masses or organomegaly noted. There is no rebound or guarding present. No CVA tenderness. Musculoskeletal: Normal ROM, no tenderness. Strength 5/5. Sensation intact. Pulses equal bilaterally 2+. Neurological: A&O x 3. CN II-XII intact, There are no obvious motor or sensory deficits. Coordination appears grossly intact. Speech is normal. Skin: Skin is warm and dry and no rashes or lesions are noted. Psychiatric: Cooperative, appropriate mood & affect, normal judgment. (Ken Tavares) Course <Adam Thomas - Last Filed: 08/03/17 12:01> <Ken Tavares - Last Filed: 08/03/17 12:12> Vital Signs 08/03/17 08/03/17 08:44 11:56 Temperature 97.3 F L 99.0 F Pulse Rate 108 H 95 Respiratory 20 18 Rate Blood Pressure 157/106 150/91 O2 Sat by Pulse 100 98 Oximetry - Reevaluation(s) Reevaluation #1: 08/03/17 12:01 I did personally do a [id number] evaluation of the patient and did discuss the findings with her. Patient still is nauseated she is demonstrating evidence of dehydration with hemoconcentration and prerenal azotemia. I did discuss the case both with Dr. Burton and with Dr. Valenzuela. Patient will be admitted to the medical service with urology consultation. (Adam Thomas) Medical Decision Making - Lab Data Result diagrams: 08/03/17 09:40 08/03/17 09:40 <Adam Thomas - Last Filed: 08/03/17 12:01> - Lab Data Result diagrams: 08/03/17 09:40 08/03/17 09:40 <Ken Tavares - Last Filed: 08/03/17 12:12> - Lab Data Lab Results 08/03/17 08/03/17 08/03/17 Range/Units 09:40 09:40 09:40 WBC 14.0 H (3.8-10.6) k/uL RBC 5.68 H (3.80-5.40) m/uL Hgb 16.4 H D (11.4-16.0) gm/dL Hct 48.9 H (34.0-46.0) % MCV 86.0 (80.0-100.0) fL MCH 28.8 (25.0-35.0) pg MCHC 33.5 (31.0-37.0) g/dL RDW 13.5 (11.5-15.5) % Plt Count 297 (150-450) k/uL Neutrophils % 83 % Lymphocytes % 9 % Monocytes % 6 % Eosinophils % 1 % Basophils % 0 % Neutrophils # 11.6 H (1.3-7.7) k/uL Lymphocytes # 1.3 (1.0-4.8) k/uL Monocytes # 0.8 (0-1.0) k/uL Eosinophils # 0.1 (0-0.7) k/uL Basophils # 0.0 (0-0.2) k/uL Sodium 135 L (137-145) mmol/L Potassium 3.7 (3.5-5.1) mmol/L Chloride 91 L (98-107) mmol/L Carbon Dioxide 20 L (22-30) mmol/L Anion Gap 24 mmol/L BUN 35 H (7-17) mg/dL Creatinine 1.60 H (0.52-1.04) mg/dL Est GFR (CKD-EPI)AfAm 40 (>60 ml/min/1.73 sqM) Est GFR (CKD-EPI)NonAf 35 (>60 ml/min/1.73 sqM) Glucose 139 H (74-99) mg/dL Calcium 10.4 H (8.4-10.2) mg/dL Total Bilirubin 1.1 (0.2-1.3) mg/dL AST 30 (14-36) U/L ALT 23 (9-52) U/L Alkaline Phosphatase 73 (38-126) U/L Total Protein 9.4 H (6.3-8.2) g/dL Albumin 5.3 H (3.5-5.0) g/dL Amylase 114 H (30-110) U/L Lipase 39 (23-300) U/L Urine Color Yellow Urine Appearance Cloudy H (Clear) Urine pH 5.5 (5.0-8.0) Ur Specific [place] 1.023 (1.001-1.035) Urine Protein 2+ H (Negative) Urine Glucose (UA) Negative (Negative) Urine Ketones 1+ H (Negative) Urine Blood Large H (Negative) Urine Nitrite Negative (Negative) Urine Bilirubin Negative (Negative) Urine Urobilinogen <2.0 (<2.0) mg/dL Ur Leukocyte Esterase Small H (Negative) Urine RBC >182 H (0-5) /hpf Urine WBC 9 H (0-5) /hpf Ur Squamous Epith Cells 1 (0-4) /hpf Hyaline Casts 7 H (0-2) /lpf Urine Mucus Occasional H (None) /hpf Disposition <Adam Thomas - Last Filed: 08/03/17 12:01> Is patient prescribed a controlled substance at d/c from ED?: No Time of Disposition: 12:12 <Ken Tavares - Last Filed: 08/03/17 12:12> Clinical Impression: Nausea & vomiting, Hematuria, Leukocytosis, Kidney mass, Acute kidney injury Disposition: ADMITTED IP TO THIS HOSP Condition: Undetermined Referrals: Edmar Holder III, MD [Primary Care Provider] - 1-2 days
[2017-08-03 10:07] LABS: Basophils % (A) 0 %; Eosinophils # (A) 0.1 k/uL (0-0.7); Eosinophils % (A) 1 %; HCT 48.9 % (34.0-46.0); Lymphocytes # (A) 1.3 k/uL (1.0-4.8); Lymphocytes % (A) 9 %; MCH 28.8 pg (25.0-35.0); MCHC 33.5 g/dL (31.0-37.0); Mean Platelet Volume 6.9; Monocytes # (A) 0.8 k/uL (0-1.0); Monocytes % (A) 6 %; Neutrophils # (A) 11.6 k/uL (1.3-7.7); Neutrophils % (A) 83 %; Platelet Count 297 k/uL (150-450); RBC 5.68 m/uL (3.80-5.40); RDW 13.5 % (11.5-15.5)
[2017-08-03 10:12] LABS: HGB 16.4 gm/dL (11.4-16.0)
[2017-08-03 10:16] LABS: Albumin 5.3 g/dL (3.5-5.0); Appearance,Urine Cloudy (Clear); Bilirubin,Urine Negative (Negative); Blood,Urine Large (Negative); Calcium 10.4 mg/dL (8.4-10.2); Color,Urine Yellow; Glucose,Urine (UA) Negative (Negative); Hyaline Casts,Urine 7 /lpf (0-2); Ketones,Urine 1+ (Negative); Leukocyte Esterase,Urine Small (Negative); Mucus,Urine Occasional /hpf; Nitrite,Urine Negative (Negative); PH, Urine 5.5 (5.0-8.0); Potassium 3.7 mmol/L (3.5-5.1); Protein,Urine 2+ (Negative); RBC,Urine >182 /hpf (0-5); Specific Gravity,Urine 1.023 (1.001-1.035); Squamous Epithelial Cell,Urine 1 /hpf (0-4); Total Bilirubin 1.1 mg/dL (0.2-1.3); Total Protein 9.4 g/dL (6.3-8.2); Urobilinogen,Urine <2.0 mg/dL (<2.0); WBC,Urine 9 /hpf (0-5)
--- NOTE | 2017-08-03 10:22 | XR ---
EXAMINATION TYPE: XR KUB DATE OF EXAM: 08/03/2017 COMPARISON: NONE HISTORY: Pain TECHNIQUE: Single supine KUB image of the abdomen is obtained FINDINGS: Small bowel demonstrates no evidence for dilatation or air fluid levels. Gas and fecal material is seen in non-distended colon. No convincing evidence for pneumoperitoneum. No unusual calcifications. The lung bases are clear. The osseous structures are intact. IMPRESSION: 1. Overall nonobstructive bowel gas pattern.
[2017-08-03] MEDS ORDERED: NALOXONE 0.4 MG/ML 1 ML VIAL IV PRN (12:12)
[2017-08-03] MEDS ORDERED: ACETAMINOPHEN TAB 325 MG TAB PO PRN (12:12)
[2017-08-03] MEDS ORDERED: MORPHINE SULFATE 4 MG/ML SYRINGE IV PRN (12:12)
[2017-08-03] MEDS ORDERED: ONDANSETRON 4 MG/2 ML VIAL IVP PRN (12:12)
--- NOTE | 2017-08-03 16:19 | P.HPIM ---
History of Present Illness 62-year-old female came in with intractable nausea vomiting has been going on for last 2 days. Patient was seen here on Wednesday had a CAT scan of the abdomen which showed left renal mass highly suspicious for renal cell carcinoma and patient was referred to urology as an outpatient. Patient started having hematuria as well with some clots couple days ago which has improved now patient is right now having bloody urine. Patient is found to have worsening kidney function minimal pain in the left upper quadrant without any left flank pain. Patient was started on IV fluids. Patient and dysuria patient denied any fever chills patient does have some leukocytosis. Review of Systems REVIEW OF SYSTEMS: CONSTITUTIONAL: No fever, no malaise, no fatigue. HEENT: No recent visual problems or hearing problems. Denied any sore throat. CARDIOVASCULAR: No chest pain, orthopnea, PND, no palpitations, no syncope. PULMONARY: No shortness of breath, no cough, no hemoptysis. GASTROINTESTINAL: No diarrhea. NEUROLOGICAL: No headaches, no weakness, no numbness. HEMATOLOGICAL: Denies any bleeding or petechiae. GENITOURINARY: Denies any burning micturition, frequency, or urgency. MUSCULOSKELETAL/RHEUMATOLOGICAL: Denies any joint pain, swelling, or any muscle pain. ENDOCRINE: Denies any polyuria or polydipsia. The rest of the 14-point review of systems is negative. Past Medical History Past Medical History: Chest Pain / Angina, GERD/Reflux, Hypertension, Myocardial Infarction ([place]), Pneumonia, Thyroid Disorder Additional Past Medical History / Comment(s): Recent upper respiratory infection , "2012 electrical heart attack", PUD, hypothyroid, low back pain, past migraines, lt foot fx with surgery, rib fx, diverticulosis dx/benign polyp.stress test 02-17-17 Last Myocardial Infarction Date:: 2012 History of Any Multi-Drug Resistant Organisms: None Reported Past Surgical History: Back Surgery, Heart Catheterization, Orthopedic Surgery, Tonsillectomy, Tubal Ligation Additional Past Surgical History / Comment(s): 2012 cardiac cath-normal, colonoscopy/benign polypectomy, ORIF LT FT, back x2 Past Anesthesia/Blood Transfusion Reactions: No Reported Reaction Additional Past Anesthesia/Blood Transfusion Reaction / Comment(s): no hx blood transfusion Past Psychological History: No Psychological Hx Reported Smoking Status: Former smoker Past Alcohol Use History: None Reported Past Drug Use History: None Reported - Past Family History Mother Family Medical History: No Reported History Additional Family Medical History / Comment(s): Mother was healthy and lived to be 92 yrs. old. Father History Unknown: Yes Family Medical History: No Reported History Medications and Allergies Home Medications Medication Instructions Recorded Confirmed Type Levothyroxine Sodium [Levoxyl] 88 mcg PO QAM 08/15/14 08/03/17 History Metoprolol Succinate (ER) [Toprol 25 mg PO DAILY 02/17/17 08/03/17 History XL] ALPRAZolam [Xanax] 0.5 mg PO TID PRN 07/08/17 08/03/17 History Citalopram Hydrobromide [CeleXA] 40 mg PO DAILY 07/08/17 08/03/17 History Varenicline [Chantix Continuing 1 mg PO BID 07/08/17 08/03/17 History Pack] Pantoprazole Sodium [Protonix] 40 mg PO AIDA-SHAKA #30 tablet. 07/10/17 Rx Allergies Allergy/AdvReac Type Severity Reaction Status Date / Time Sulfa (Sulfonamide Allergy Rash/Hives Verified 08/03/17 12:56 Antibiotics) Physical Exam Vitals: Vital Signs Temp Pulse Pulse Resp BP BP Pulse Ox 08/03/17 12:37 98.1 F 67 16 137/74 97 08/03/17 12:29 99.0 F 91 18 152/91 97 08/03/17 11:56 99.0 F 95 18 150/91 98 08/03/17 08:44 97.3 F L 108 H 20 157/106 100 Intake and Output 08/03/17 08/03/17 08/03/17 06:59 14:59 22:59 Other: # Voids 0 Weight 68.039 kg PHYSICAL EXAMINATION: GENERAL: The patient is alert and oriented x3, not in any acute distress. Well developed, well nourished. HEENT: Pupils are round and equally reacting to light. EOMI. No scleral icterus. No conjunctival pallor. Normocephalic, atraumatic. No pharyngeal erythema. No thyromegaly. CARDIOVASCULAR: S1 and S2 present. No murmurs, rubs, or gallops. PULMONARY: Chest is clear to auscultation, no wheezing or crackles. ABDOMEN: Soft, nontender, nondistended, normoactive bowel sounds. No palpable organomegaly. MUSCULOSKELETAL: No joint swelling or deformity. EXTREMITIES: No cyanosis, clubbing, or pedal edema. NEUROLOGICAL: Gross neurological examination did not reveal any focal deficits. SKIN: No rashes. Results CBC & Chem 7: 08/03/17 09:40 08/03/17 09:40 Labs: Abnormal Lab Results - Last 24 Hours (Table) 08/03/17 08/03/17 08/03/17 Range/Units 09:40 09:40 09:40 WBC 14.0 H (3.8-10.6) k/uL RBC 5.68 H (3.80-5.40) m/uL Hgb 16.4 H D (11.4-16.0) gm/dL Hct 48.9 H (34.0-46.0) % Neutrophils # 11.6 H (1.3-7.7) k/uL Sodium 135 L (137-145) mmol/L Chloride 91 L (98-107) mmol/L Carbon Dioxide 20 L (22-30) mmol/L BUN 35 H (7-17) mg/dL Creatinine 1.60 H (0.52-1.04) mg/dL Glucose 139 H (74-99) mg/dL Calcium 10.4 H (8.4-10.2) mg/dL Total Protein 9.4 H (6.3-8.2) g/dL Albumin 5.3 H (3.5-5.0) g/dL Amylase 114 H (30-110) U/L Urine Appearance Cloudy H (Clear) Urine Protein 2+ H (Negative) Urine Ketones 1+ H (Negative) Urine Blood Large H (Negative) Ur Leukocyte Esterase Small H (Negative) Urine RBC >182 H (0-5) /hpf Urine WBC 9 H (0-5) /hpf Hyaline Casts 7 H (0-2) /lpf Urine Mucus Occasional H (None) /hpf Microbiology - Last 24 Hours (Table) 08/03/17 09:40 Urine Culture - Preliminary Urine,Voided Assessment and Plan Plan: -Intractable nausea vomiting with minimal left upper quadrant abdominal pain: Nausea vomiting is probably secondary to renal cell carcinoma patient does not have any symptoms consistent to gastritis lipase is not elevated. Urology was consulted. Habits for hematuria secondary to renal mass -Acute renal failure: Secondary to prerenal azotemia intravascular depletion from nausea vomiting patient was started on IV fluids which will be continued -Hypothyroidism -Gastroesophageal reflux disease: Patient was started on Protonix -Coronary artery disease -Possibility of renal cell carcinoma -Depression For above-mentioned chronic medical problems patient will be resumed and continued on appropriate home medications
[2017-08-03] MEDS: PROCHLORPERAZINE 5 MG TAB PO PRN (16:32)
[2017-08-03] MEDS: SODIUM CHLORIDE 0.9% 1,000 ML IV ONE (16:33)
--- NOTE | 2017-08-03 17:01 | P.GSCN ---
History of Present Illness Consult date: 08/03/17 History of present illness: The patient is a 62-year-old female came to the hospital with nausea and vomiting. She is evaluated and found to have hematuria. She had a computed tomography scan identifying a 7-8 cm left renal mass consistent with renal cell carcinoma. Nausea and vomiting persisted such she was admitted to the hospital. She is found to have some renal insufficiency probably due to dehydration. Review of Systems - Constitutional Reports fatigue - Gastrointestinal Reports abdominal pain, Reports nausea, Reports vomiting - Genitourinary Genitourinary: Reports hematuria Past Medical History Past Medical History: Chest Pain / Angina, GERD/Reflux, Hypertension, Myocardial Infarction ([place]), Pneumonia, Thyroid Disorder Additional Past Medical History / Comment(s): Recent upper respiratory infection , "2012 electrical heart attack", PUD, hypothyroid, low back pain, past migraines, lt foot fx with surgery, rib fx, diverticulosis dx/benign polyp.stress test 02-17-17 Last Myocardial Infarction Date:: 2012 History of Any Multi-Drug Resistant Organisms: None Reported Past Surgical History: Back Surgery, Heart Catheterization, Orthopedic Surgery, Tonsillectomy, Tubal Ligation Additional Past Surgical History / Comment(s): 2012 cardiac cath-normal, colonoscopy/benign polypectomy, ORIF LT FT, back x2 Past Anesthesia/Blood Transfusion Reactions: No Reported Reaction Additional Past Anesthesia/Blood Transfusion Reaction / Comm: no hx blood transfusion Past Psychological History: No Psychological Hx Reported Smoking Status: Former smoker Past Alcohol Use History: None Reported Past Drug Use History: None Reported - Past Family History Mother Family Medical History: No Reported History Additional Family Medical History / Comment(s): Mother was healthy and lived to be 92 yrs. old. Father History Unknown: Yes Family Medical History: No Reported History Medications and Allergies Home Medications Medication Instructions Recorded Confirmed Type Levothyroxine Sodium [Levoxyl] 88 mcg PO QAM 08/15/14 08/03/17 History Metoprolol Succinate (ER) [Toprol 25 mg PO DAILY 02/17/17 08/03/17 History XL] ALPRAZolam [Xanax] 0.5 mg PO TID PRN 07/08/17 08/03/17 History Citalopram Hydrobromide [CeleXA] 40 mg PO DAILY 07/08/17 08/03/17 History Varenicline [Chantix Continuing 1 mg PO BID 07/08/17 08/03/17 History Pack] Pantoprazole Sodium [Protonix] 40 mg PO AC-SHAKA #30 tablet. 07/10/17 Rx Allergies Allergy/AdvReac Type Severity Reaction Status Date / Time Sulfa (Sulfonamide Allergy Rash/Hives Verified 08/03/17 12:56 Antibiotics) Surgical - Exam Vital Signs Temp Pulse Resp BP Pulse Ox 97.3 F L 108 H 20 157/106 100 08/03/17 08:44 08/03/17 08:44 08/03/17 08:44 08/03/17 08:44 08/03/17 08:44 - General well developed, well nourished, no distress - Eyes PERRL - ENT no hearing loss - Neck no masses, trachea midline - Respiratory normal expansion, normal respiratory effort - Cardiovascular Rhythm: regular - Abdomen Abdomen: soft, no non tender, tender - Integumentary no rash, no growths - Neurologic normal coordination, normal sensation - Musculoskeletal normal posture - Psychiatric oriented to time, oriented to person, oriented to place, speech is normal, memory intact Results - Labs 08/03/17 09:40 08/03/17 09:40 Abnormal Lab Results - Last 24 Hours (Table) 08/03/17 08/03/17 08/03/17 Range/Units 09:40 09:40 09:40 WBC 14.0 H (3.8-10.6) k/uL RBC 5.68 H (3.80-5.40) m/uL Hgb 16.4 H D (11.4-16.0) gm/dL Hct 48.9 H (34.0-46.0) % Neutrophils # 11.6 H (1.3-7.7) k/uL Sodium 135 L (137-145) mmol/L Chloride 91 L (98-107) mmol/L Carbon Dioxide 20 L (22-30) mmol/L BUN 35 H (7-17) mg/dL Creatinine 1.60 H (0.52-1.04) mg/dL Glucose 139 H (74-99) mg/dL Calcium 10.4 H (8.4-10.2) mg/dL Total Protein 9.4 H (6.3-8.2) g/dL Albumin 5.3 H (3.5-5.0) g/dL Amylase 114 H (30-110) U/L Urine Appearance Cloudy H (Clear) Urine Protein 2+ H (Negative) Urine Ketones 1+ H (Negative) Urine Blood Large H (Negative) Ur Leukocyte Esterase Small H (Negative) Urine RBC >182 H (0-5) /hpf Urine WBC 9 H (0-5) /hpf Hyaline Casts 7 H (0-2) /lpf Urine Mucus Occasional H (None) /hpf Diabetes panel 08/03/17 Range/Units 09:40 Sodium 135 L (137-145) mmol/L Potassium 3.7 (3.5-5.1) mmol/L Chloride 91 L (98-107) mmol/L Carbon Dioxide 20 L (22-30) mmol/L BUN 35 H (7-17) mg/dL Creatinine 1.60 H (0.52-1.04) mg/dL Glucose 139 H (74-99) mg/dL Calcium 10.4 H (8.4-10.2) mg/dL AST 30 (14-36) U/L ALT 23 (9-52) U/L Alkaline Phosphatase 73 (38-126) U/L Total Protein 9.4 H (6.3-8.2) g/dL Albumin 5.3 H (3.5-5.0) g/dL Calcium panel 08/03/17 Range/Units 09:40 Calcium 10.4 H (8.4-10.2) mg/dL Albumin 5.3 H (3.5-5.0) g/dL Pituitary panel 08/03/17 Range/Units 09:40 Sodium 135 L (137-145) mmol/L Potassium 3.7 (3.5-5.1) mmol/L Chloride 91 L (98-107) mmol/L Carbon Dioxide 20 L (22-30) mmol/L BUN 35 H (7-17) mg/dL Creatinine 1.60 H (0.52-1.04) mg/dL Glucose 139 H (74-99) mg/dL Calcium 10.4 H (8.4-10.2) mg/dL Adrenal panel 08/03/17 Range/Units 09:40 Sodium 135 L (137-145) mmol/L Potassium 3.7 (3.5-5.1) mmol/L Chloride 91 L (98-107) mmol/L Carbon Dioxide 20 L (22-30) mmol/L BUN 35 H (7-17) mg/dL Creatinine 1.60 H (0.52-1.04) mg/dL Glucose 139 H (74-99) mg/dL Calcium 10.4 H (8.4-10.2) mg/dL Total Bilirubin 1.1 (0.2-1.3) mg/dL AST 30 (14-36) U/L ALT 23 (9-52) U/L Alkaline Phosphatase 73 (38-126) U/L Total Protein 9.4 H (6.3-8.2) g/dL Albumin 5.3 H (3.5-5.0) g/dL - Imaging CT scan - abdomen: report reviewed, image reviewed CT scan - pelvis: report reviewed, image reviewed Assessment and Plan Assessment: Impression: left renal mass, large consistent with renal cell carcinoma. Nausea and vomiting secondary to acute renal insufficiency secondary to the left renal mass. Multiple medical problems including cardiac and pulmonary issues. Recommendations. This patient most likely will need a left radical nephrectomy. We discussed laparoscopic ,robotic and open approach. Her renal insufficiency is most likely due to dehydration and she had a normal creatinine earlier. After rehydration I would like a CT scan with contrast to further assess the vasculature and surrounding areas of the kidney. Best I can tell from the present computed tomography scan there is no obvious metastases. Our office will follow with you.
[2017-08-03] MEDS: HYDROcodone/APAP 5-325MG 1 EACH TAB PO PRN (17:09)
[2017-08-03] MEDS: ONDANSETRON 4 MG/2 ML VIAL IVP PRN (19:28)
[2017-08-03] MEDS: VARENICLINE 1 MG TAB PO SCH (20:08)
[2017-08-04] MEDS: SODIUM CHLORIDE 0.9% 1,000 ML IV ONE (02:53)
[2017-08-04] MEDS: ONDANSETRON 4 MG/2 ML VIAL IVP PRN ×2 (02:53→15:25)
[2017-08-04] MEDS: PANTOPRAZOLE 40 MG TABLET PO SCH (06:23)
[2017-08-04] MEDS: LEVOTHYROXINE 88 MCG TAB PO SCH (06:23)
[2017-08-04 07:14] LABS: Basophils % (A) 0 %; Eosinophils # (A) 0.1 k/uL (0-0.7); Eosinophils % (A) 1 %; HCT 39.3 % (34.0-46.0); Lymphocytes # (A) 1.2 k/uL (1.0-4.8); Lymphocytes % (A) 13 %; MCH 28.6 pg (25.0-35.0); MCHC 32.9 g/dL (31.0-37.0); MCV 86.9 fL (80.0-100.0); Monocytes # (A) 0.8 k/uL (0-1.0); Monocytes % (A) 8 %; Neutrophils # (A) 7.1 k/uL (1.3-7.7); Neutrophils % (A) 77 %; Platelet Count 243 k/uL (150-450); RBC 4.53 m/uL (3.80-5.40); RDW 13.5 % (11.5-15.5); WBC 9.3 k/uL (3.8-10.6)
[2017-08-04] MEDS: PROCHLORPERAZINE 5 MG TAB PO PRN (07:19)
[2017-08-04 07:20] LABS: HGB 12.9 gm/dL (11.4-16.0)
[2017-08-04 07:53] LABS: Albumin 3.6 g/dL (3.5-5.0); Calcium 8.6 mg/dL (8.4-10.2); Potassium 3.6 mmol/L (3.5-5.1); Total Bilirubin 0.7 mg/dL (0.2-1.3); Total Protein 6.5 g/dL (6.3-8.2)
[2017-08-04] MEDS: METOPROLOL SUCCINATE (ER) 25 MG TAB.ER.24H PO SCH (08:38)
[2017-08-04] MEDS: CITALOPRAM HYDROBROMIDE 20 MG TAB PO SCH (08:39)
[2017-08-04] MEDS: ALPRAZolam 0.5 MG TAB PO PRN ×2 (08:39→23:28)
[2017-08-04] MEDS: VARENICLINE 1 MG TAB PO SCH ×2 (08:45→22:01)
[2017-08-04] MEDS ORDERED: RX INFO: IV CONTRAST WAS GIVEN 1 EACH MISC MISCELLANE PRN (10:37)
--- NOTE | 2017-08-04 10:39 | P.PN ---
Subjective Progress Note Date: 08/04/17 The patient is in the hospital for left renal mass. This mass is worrisome for renal malignancy. Her creatinine is normalized with IV hydration. I will order computed tomography scan with contrast to further assess the lesion. Most likely she is going to need a nephrectomy. we'll see her in my absence as he has seen her before. Objective - Vital Signs Vital signs: Vital Signs Temp 98.0 F 08/04/17 07:32 Pulse 71 08/04/17 07:32 Resp 16 08/04/17 07:32 BP 131/78 08/04/17 07:32 Pulse Ox 96 08/04/17 07:32 Intake & Output 08/03/17 08/04/17 08/04/17 18:59 06:59 18:59 Output Total 500 1190 200 Balance -500 -1190 -200 Weight 68.039 kg Output: Urine 500 1190 200 Other: Voiding Method Toilet # Voids 1 1 - Labs CBC & Chem 7: 08/04/17 06:54 08/04/17 06:54 Labs: Abnormal Lab Results - Last 24 Hours (Table) 08/04/17 Range/Units 06:54 BUN 22 H (7-17) mg/dL Creatinine 1.09 H (0.52-1.04) mg/dL Microbiology - Last 24 Hours (Table) 08/03/17 09:40 Urine Culture - Preliminary Urine,Voided
[2017-08-04] MEDS: IOPAMIDOL-300 CONTRAST 30 ML VIAL (ORAL USE) PO PRN ×2 (10:56→12:00)
[2017-08-04] MEDS: SODIUM CHLORIDE 0.9% 1,000 ML IV SCH ×2 (13:03→22:01)
--- NOTE | 2017-08-04 13:29 | CT ---
EXAMINATION TYPE: CT abdomen pelvis wo/w con DATE OF EXAM: 08/04/2017 COMPARISON: 07/31/2017 HISTORY: Known renal mass CT DLP: 1109.3 mGycm CONTRAST: CT scan of the abdomen and pelvis is performed with Oral Contrast and without and with IV Contrast, p atient injected with 100 mL of Isovue 300. FINDINGS: LUNG BASES-: No visible nodule. No infiltrate. LIVER/GB: No calcified gallstones. Hyperdense lesions within the liver totaling 2 and number asian studies professor ior segment right hepatic lobe measuring 1.4 cm and 1.3 cm respectively which on delayed images appea r to fill-in. Differential diagnostic possibilities include hemangioma, adenoma and FNH. Metastatic d isease difficult to exclude. Consider MRI correlation. Additional cysts noted posterior segment right hepatic lobe measuring 1.2 cm. Biliary tree is of normal caliber. PANCREAS: No inflammation. No distinct mass. SPLEEN: No splenic enlargement. No lesion seen. ADRENALS: No nodule. No thickening. KIDNEYS/BLADDER: Large partially solid partially cystic mass arising from the mid to upper pole of th e left kidney anteriorly which measures approximately 9.3 x 8.0 x 7.0 cm. Mass is compatible with a r enal cell carcinoma until proven otherwise. No additional solid lesions seen. Left renal vein is quinteros nt. No evidence for adrenal mass. No evidence for infiltration into adjacent structure. Small cysts a re noted bilaterally simple type III largest simple cyst lower pole right kidney measures 2.1 cm. No hydronephrosis or nephrolithiasis. BOWEL: Normal appendix. Normal bowel caliber. No inflammation. GENITAL ORGANS: No gross abnormality. LYMPH NODES: No greater than 1cm abdominal or pelvic lymph nodes are appreciated. AORTA: No significant abnormality. OSSEOUS STRUCTURES: Severe degenerative change lumbar spine and postoperative change noted. OTHER: No significant additional abnormality is seen. IMPRESSION: 1. Large partially solid partially cystic mass left kidney has discussed above. [place] to reflect a ashley al cell carcinoma until proven otherwise. 2. Hyperdense lesions within the posterior segment of the right hepatic lobe with differential diagno stic possibilities given above. Comparison to prior any outside studies would be of value. Otherwise consider MRI correlation.
--- NOTE | 2017-08-04 17:15 | P.PN ---
Subjective Patient is admitted with hematuria CAT scan findings of left renal mass urology evaluated the patient repeat CAT scan was obtained which he showing metastatic disease to the liver. Patient may need a radical nephrectomy didn't this hospitalization, urology is following the patient patient kidney function improved with IV fluids patient has prerenal azotemia from nausea vomiting. Constitutional: Denied any fatigue denied any fever. Cardio vascular: denied any chest pain, palpitations Gastrointestinal patient is still nauseous did not throw up is dry heaving Pulmonary: Denied any shortness of breath cough Neurologic denied any new focal deficits Objective - Vital Signs Vital signs: Vital Signs Temp 98.5 F 08/04/17 16:16 Pulse 73 08/04/17 16:16 Resp 16 08/04/17 16:16 BP 133/77 08/04/17 16:16 Pulse Ox 95 08/04/17 16:16 Intake & Output 08/03/17 08/04/17 08/04/17 18:59 06:59 18:59 Intake Total 760 Output Total 500 1190 1050 Balance -500 -1190 -290 Weight 68.039 kg Intake: Oral 760 Output: Urine 500 1190 1050 Other: Voiding Method Toilet # Voids 1 1 - Exam PHYSICAL EXAMINATION: GENERAL: The patient is alert and oriented x3, not in any acute distress. Well developed, well nourished. HEENT: Pupils are round and equally reacting to light. EOMI. No scleral icterus. No conjunctival pallor. Normocephalic, atraumatic. No pharyngeal erythema. No thyromegaly. CARDIOVASCULAR: S1 and S2 present. No murmurs, rubs, or gallops. PULMONARY: Chest is clear to auscultation, no wheezing or crackles. ABDOMEN: Soft, nontender, nondistended, normoactive bowel sounds. No palpable organomegaly. MUSCULOSKELETAL: No joint swelling or deformity. EXTREMITIES: No cyanosis, clubbing, or pedal edema. NEUROLOGICAL: Gross neurological examination did not reveal any focal deficits. SKIN: No rashes. - Labs CBC & Chem 7: 08/04/17 06:54 08/04/17 06:54 Labs: Abnormal Lab Results - Last 24 Hours (Table) 08/04/17 Range/Units 06:54 BUN 22 H (7-17) mg/dL Creatinine 1.09 H (0.52-1.04) mg/dL Microbiology - Last 24 Hours (Table) 08/03/17 09:40 Urine Culture - Final Urine,Voided Assessment and Plan Plan: -Intractable nausea vomiting with minimal left upper quadrant abdominal pain: Nausea vomiting is probably secondary to renal cell carcinoma patient does not have any symptoms consistent to gastritis lipase is not elevated. Urology evaluated the patient and repeat CAT scan as mentioned above Painless hematuria secondary to renal mass -Acute renal failure: Secondary to prerenal azotemia intravascular depletion from nausea vomiting patient was started on IV fluids which will be continued, improved creatinine repeat Avapro lites tomorrow -Hypothyroidism -Gastroesophageal reflux disease: Patienti s on Protonix -Coronary artery disease -Possibility of renal cell carcinoma -Depression For above-mentioned chronic medical problems patient will be resumed and continued on appropriate home medications
[2017-08-04] MEDS: HYDROcodone/APAP 5-325MG 1 EACH TAB PO PRN (21:06)
[2017-08-05] MEDS: PANTOPRAZOLE 40 MG TABLET PO SCH (06:31)
[2017-08-05] MEDS: LEVOTHYROXINE 88 MCG TAB PO SCH (06:31)
[2017-08-05] MEDS: CITALOPRAM HYDROBROMIDE 20 MG TAB PO SCH (09:03)
[2017-08-05] MEDS: SODIUM CHLORIDE 0.9% 1,000 ML IV SCH (09:03)
[2017-08-05] MEDS: METOPROLOL SUCCINATE (ER) 25 MG TAB.ER.24H PO SCH (09:03)
[2017-08-05] MEDS: VARENICLINE 1 MG TAB PO SCH (09:03)
[2017-08-05] MEDS: ALPRAZolam 0.5 MG TAB PO PRN (09:06)
[2017-08-05] MEDS ORDERED: RX INFO: IV CONTRAST WAS GIVEN 1 EACH MISC MISCELLANE PRN (10:22)
--- NOTE | 2017-08-05 12:10 | P.PN ---
Progress Note - Text Progress Note Date: 08/05/17 The patient is afebrile and normotensive. Her appetite is poor but she denies any vomiting. On examination she continues to have some mild discomfort in the left upper quadrant. Computed tomography scan of the abdomen with IV contrast confirmed a hypervascular 9 cm mass arising from the anterior upper pole of the left kidney consistent with renal cell carcinoma. There was no definite evidence of regional adenopathy or renal vein thrombus. There appears to be AV shunting as the renal vein is somewhat dilated. There are several small lesions in the liver which are hypervascular and could be benign hemangiomas or hepatic adenomas however metastatic renal cell carcinoma cannot be excluded. In view of this I believe that an MRI of the liver with IV contrast would be appropriate. In addition a computed tomography scan of the chest with IV contrast will be obtained to exclude metastatic disease. I will call the patient after I have reviewed these studies. If the patient has no definite evidence of metastatic disease then she would be a candidate for radical nephrectomy. I discussed open and laparoscopic nephrectomy with the patient and believe that the patient would be a candidate for hand-assisted laparoscopic nephrectomy.
--- NOTE | 2017-08-05 13:48 | P.DS ---
Providers Date of admission: 08/03/17 12:02 Attending physician: Robbin Valenzuela Consults: 08/03/17 12:12 Consult Physician Stat Consulting Provider: Ruslan Burton Reason/Comments: Kidney mass Do you want consulting provider notified?: Yes Primary care physician: Edmar Dela [facility] Hospital Course: Patient is admitted with hematuria CAT scan findings of left renal mass urology evaluated the patient repeat CAT scan was obtained which he showing metastatic disease to the liver. Patient may need a radical nephrectomy didn't this hospitalization, urology is following the patient patient kidney function improved with IV fluids patient has prerenal azotemia from nausea vomiting. Patient's renal dysfunction improved with IV fluids and patient creatinine is 0.8 now. Discussed with urology. Patient urology is obtaining a CAT scan of the chest., Patient will be discharged today after the CAT scan of the chest. Urology is morning MRI of the liver which will be ordered for an outpatient. Patient appears to need laparoscopic radical nephrectomy. Arrangements regarding outpatient follow-up with radical laparoscopic nephrectomy will be done by urology. PHYSICAL EXAMINATION: GENERAL: The patient is alert and oriented x3, not in any acute distress. Well developed, well nourished. HEENT: Pupils are round and equally reacting to light. EOMI. No scleral icterus. No conjunctival pallor. Normocephalic, atraumatic. No pharyngeal erythema. No thyromegaly. CARDIOVASCULAR: S1 and S2 present. No murmurs, rubs, or gallops. PULMONARY: Chest is clear to auscultation, no wheezing or crackles. ABDOMEN: Soft, nontender, nondistended, normoactive bowel sounds. No palpable organomegaly. MUSCULOSKELETAL: No joint swelling or deformity. EXTREMITIES: No cyanosis, clubbing, or pedal edema. NEUROLOGICAL: Gross neurological examination did not reveal any focal deficits. SKIN: No rashes. Assessment and Plan Plan: -Intractable nausea vomiting with minimal left upper quadrant abdominal pain: Nausea vomiting is probably secondary to renal cell carcinoma patient does not have any symptoms consistent to gastritis lipase is not elevated. Urology evaluated the patient and repeat CAT scan as mentioned above Painless hematuria secondary to renal mass -Acute renal failure: Secondary to prerenal azotemia intravascular depletion from nausea vomiting , improved -Hypothyroidism -Gastroesophageal reflux disease: Patienti s on Protonix -Coronary artery disease -Possibility of renal cell carcinoma -Depression Patient Condition at Discharge: Undetermined Plan - Discharge Summary Discharge Rx Participant: No New Discharge Prescriptions: New Ondansetron Odt [Zofran Odt] 4 mg PO Q8HR PRN #20 tab PRN Reason: Nausea And Vomiting No Action Levothyroxine Sodium [Levoxyl] 88 mcg PO QAM Metoprolol Succinate (ER) [Toprol XL] 25 mg PO DAILY Varenicline [Chantix Continuing Pack] 1 mg PO BID Citalopram Hydrobromide [CeleXA] 40 mg PO DAILY ALPRAZolam [Xanax] 0.5 mg PO TID PRN PRN Reason: Anxiety Pantoprazole Sodium [Protonix] 40 mg PO AC-BRKFST #30 tablet. Discharge Medication List Levothyroxine Sodium [Levoxyl] 88 mcg PO QAM 08/15/14 [History] Metoprolol Succinate (ER) [Toprol XL] 25 mg PO DAILY 02/17/17 [History] ALPRAZolam [Xanax] 0.5 mg PO TID PRN 07/08/17 [History] Citalopram Hydrobromide [CeleXA] 40 mg PO DAILY 07/08/17 [History] Varenicline [Chantix Continuing Pack] 1 mg PO BID 07/08/17 [History] Pantoprazole Sodium [Protonix] 40 mg PO AC-BRKFST #30 tablet. 07/10/17 [Rx] Ondansetron Odt [Zofran Odt] 4 mg PO Q8HR PRN #20 tab 08/05/17 [Rx] Follow up Appointment(s)/Referral(s): Edmar Holder III, MD [Primary Care Provider] - 3 Weeks Discharge Disposition: HOME SELF-CARE
[2017-08-05] MEDS: HYDROcodone/APAP 5-325MG 1 EACH TAB PO PRN (14:25)
--- NOTE | 2017-08-05 15:21 | CT ---
EXAMINATION TYPE: CT chest w con DATE OF EXAM: 08/05/2017 COMPARISON: NONE HISTORY: Renal mass CT DLP: 261.1 mGycm, Automated exposure control for dose reduction was used. CONTRAST: Performed injected with 100 mL of Isovue 300. TECHNIQUE: Axial images were obtained at 5 mm thick sections. Reconstructed images are reviewed on [facility] computer in the coronal plane. FINDINGS: Portion of the thyroid visualized is normal. No suspicious lung nodules or focal infiltrates are present. No enlarged mediastinal or hilar adenopathy is evident. Some shotty lymphadenopathy is within the m ediastinum. The ascending aorta diameter at the level of the main pulmonary artery is 2.8 cm. The ma in pulmonary artery diameter at the bifurcation is 2.[address] sections are obtained through the upper abdomen. There is a 7.7 cm enhancing mass within t anterior left mid kidney within the [id number]. There is only partially visualized. IMPRESSIONS: 1. No acute pulmonary process. 2. Partially visualized left renal mass.
[2017-08-05 16:47] VITALS: BP 149/87; PULSE 57; RESP 16; TEMP 97
== END 2017-08-05 18:15 | disposition home or self-care (01) | DRG 687 ==
LOC: EC 08:30 → 6PED 12:02
PROVIDERS: ADMIT Hospitalist; ATTEND Hospitalist
DX: C64.2 Malignant neoplasm of left kidney, except renal pelvis (principal); C78.7 Secondary malignant neoplasm of liver and intrahepatic bile duct; N17.9 Acute kidney failure, unspecified; E86.0 Dehydration; E03.9 Hypothyroidism, unspecified; K21.9 Gastro-esophageal reflux disease without esophagitis; I25.10 Atherosclerotic heart disease of native coronary artery without angina pectoris; F32.9 Major depressive disorder, single episode, unspecified; I10 Essential (primary) hypertension; I25.2 Old myocardial infarction; G43.909 Migraine, unspecified, not intractable, without status migrainosus; K57.90 Diverticulosis of intestine, part unspecified, without perforation or abscess without bleeding; M54.5 Low back pain; Z79.899 Other long term (current) drug therapy; Z87.81 Personal history of (healed) traumatic fracture; Z87.891 Personal history of nicotine dependence; Z87.11 Personal history of peptic ulcer disease; Z86.010 Personal history of colon polyps; Z87.01 Personal history of pneumonia (recurrent); Z88.2 Allergy status to sulfonamides
CPT/HCPCS: 36415; 71260; 74018; 74178; 80053; 81001; 82150; 82565; 83690; 84520; 85025; 87086; 96361; 96374; 96376; 99285

== ENCOUNTER → 2017-08-11 | Outpatient (CLI) | payer BC ==
--- NOTE | 2017-08-12 00:36 | MR ---
EXAMINATION TYPE: MR liver wo/w con DATE OF EXAM: 08/11/2017 COMPARISON: NONE HISTORY: Hepatic cysts, stage 4 kidney cancer CONTRAST: Standard multiplanar, multisequence MRI departmental protocol utilizing 7.5 mL intravenous Gadavist g adolinium contrast. FINDINGS: There are scattered high signal foci in the liver these measure up to almost 2 cm there is delayed contrast enhancement in this is suggestive of hemangioma. This is similar in appearance to th e CT scan of 08/04/2017. The bile ducts are not dilated. There is no evidence of a pancreatic mass. Ga llbladder is contracted. There is no evidence of a splenic mass. There is a large 8 cm mass with mixe d signal on the anterior left kidney consistent with primary renal tumor. Stable compared to last CT scan. There is 1.8 cm cortical cyst on the anterior right kidney. I see no retroperitoneal adenopathy . There is 2 cm cortical cyst on the lower pole of the right kidney. There is no sign of ascites. IMPRESSION: Large left renal mass consistent with primary tumor. No evidence of renal obstruction. Right renal cortical cysts. Multiple liver lesions with delayed enhancement consistent with hemangiomata.
== END | disposition home or self-care (01) ==
LOC: RADMRIMAIN 21:03
PROVIDERS: ATTEND Family Medicine
DX: D41.02 Neoplasm of uncertain behavior of left kidney (principal); N28.1 Cyst of kidney, acquired; K76.89 Other specified diseases of liver
CPT/HCPCS: 74183; A9581

== ENCOUNTER 2017-10-16 04:08 | Emergency (ER) | payer BC ==
[2017-10-16] MEDS ORDERED: HYDROmorphone 1 MG/ML 1 ML SYRINGE IVP STA ×2 (04:21→04:38)
[2017-10-16 04:28] VITALS: TEMP 98.3
[2017-10-16] MEDS ORDERED: PIPERACILLIN-TAZOBACTAM 3.375 GM in DEXTROSE/WATER 1 50ML.BAG IVPB STA (04:30)
[2017-10-16 04:33] VITALS: RESP 18
[2017-10-16] MEDS ORDERED: HYDROmorphone 0.5 MG/0.5 ML SYRINGE IVP STA (04:36)
[2017-10-16] MEDS: SODIUM CHLORIDE 0.9% 1,000 ML IV ONE ×2 (04:36→04:43)
[2017-10-16 04:42] VITALS: BP 133/86; PULSE 83
[2017-10-16] MEDS ORDERED: SODIUM CHLORIDE 0.9% 1,000 ML IV ONE (04:43)
--- NOTE | 2017-10-16 04:47 | ED ---
General Adult HPI - General Chief complaint: Abdominal Pain Stated complaint: Post surgical complication Time Seen by Provider: 10/16/17 04:47 Source: patient, EMS Mode of arrival: EMS - History of Present Illness Initial comments: Annamaria is a 62 yo F with PMH of recently diagnosed renal cell carcinoma, a laparoscopic nephrectomy on October 07 of this year. Patient reports that she had had an uncomplicated postoperative course until tonight. Patient reports she was laying in bed and she felt that her abdomen was wet. She then noticed that her abdominal wall incision had opened up and she had visible bowel. EMS was contacted for transport to the hospital. Patient reports that she was in her usual state of health when going to bed last night. She had not noticed any redness or erythema of the wound. She not noticed any significant pain or discomfort. She still making urine. - Related Data Home Medications Medication Instructions Recorded Confirmed Levothyroxine Sodium [Levoxyl] 88 mcg PO QAM 08/15/14 08/03/17 Metoprolol Succinate (ER) [Toprol 25 mg PO DAILY 02/17/17 08/03/17 XL] ALPRAZolam [Xanax] 0.5 mg PO TID PRN 07/08/17 08/03/17 Citalopram Hydrobromide [CeleXA] 40 mg PO DAILY 07/08/17 08/03/17 Varenicline [Chantix Continuing 1 mg PO BID 07/08/17 08/03/17 Pack] Previous Rx's Medication Instructions Recorded Pantoprazole Sodium [Protonix] 40 mg PO AC-BRKFST #30 tablet. 07/10/17 Ondansetron Odt [Zofran Odt] 4 mg PO Q8HR PRN #20 tab 08/05/17 Allergies Allergy/AdvReac Type Severity Reaction Status Date / Time Sulfa (Sulfonamide Allergy Rash/Hives Verified 08/03/17 12:56 Antibiotics) Review of Systems ROS Statement: Those systems with pertinent positive or pertinent negative responses have been documented in the HPI. ROS Other: All systems not noted in ROS Statement are negative. 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", PUD, hypothyroid, low back pain, past migraines, lt foot fx with surgery, rib fx, diverticulosis dx/benign polyp.stress test 02-17-17 Last Myocardial Infarction Date:: 2012 History of Any Multi-Drug Resistant Organisms: None Reported Past Surgical History: Back Surgery, Heart Catheterization, Orthopedic Surgery, Tonsillectomy, Tubal Ligation Additional Past Surgical History / Comment(s): 2012 cardiac cath-normal, colonoscopy/benign polypectomy, ORIF LT FT, back x2, NEPHRECTOMY Past Anesthesia/Blood Transfusion Reactions: No Reported Reaction Additional Past Anesthesia/Blood Transfusion Reaction / Comment(s): no hx blood transfusion Past Psychological History: No Psychological Hx Reported Smoking Status: Former smoker Past Alcohol Use History: None Reported Past Drug Use History: None Reported - Past Family History Mother Family Medical History: No Reported History Additional Family Medical History / Comment(s): Mother was healthy and lived to be 92 yrs. old. Father History Unknown: Yes Family Medical History: No Reported History General Exam Limitations: no limitations General appearance: alert, anxious Head exam: Present: atraumatic, normocephalic Eye exam: Present: normal appearance, PERRL ENT exam: Present: mucous membranes dry Neck exam: Present: full ROM Respiratory exam: Absent: respiratory distress Cardiovascular Exam: Present: regular rate, normal rhythm GI/Abdominal exam: Present: other (Midline Abdominal wall incision open approximately 3 cm, with approximately 10 inches of small bowel visible - small bowel is pink and well perfused.) Rectal exam: Present: deferred External exam: Present: normal external exam Extremities exam: Present: normal capillary refill. Absent: pedal edema Back exam: Present: other (Unable to roll patient for back exam) Neurological exam: Present: alert, oriented X3 Psychiatric exam: Present: normal affect, normal mood Skin exam: Present: warm, other (Abdominal wall incision as detailed above, well -healing laparoscopic incisions noted with no signs of infection) Course Vital Signs 10/16/17 10/16/17 10/16/17 04:09 04:28 04:31 Temperature 97.5 F L 98.3 F Pulse Rate 63 63 Respiratory 16 18 Rate Blood Pressure 180/85 157/85 O2 Sat by Pulse 100 100 Oximetry 10/16/17 04:41 Temperature Pulse Rate 83 Respiratory 18 Rate Blood Pressure 133/86 O2 Sat by Pulse 100 Oximetry Medical Decision Making - Medical Decision Making The patient was seen and evaluated immediately upon arrival to the emergency department. Patient was noted to have an open abdominal wall incision with evisceration of small bowel. Small bowel appeared pink and well perfused. The patient had normal vital signs. The bowel covered in sterile wet dressings. Patient care was discussed with general surgery on-call Dr. Amaral who recommended contacting urology for recommendations Patient care was discussed with Dr. jodie trimble who recommended evaluation by general surgery Patient care was again discussed with Dr. Amaral who recommends the patient be transferred to the facility where her nephrectomy was performed Dilaudid for pain management, Zosyn ordered. Patient care was discussed with Dr. Rushing [facility] who accepts transfer Using sterile gloves I was able to reduce approximately a inches of small bowel back into the abdomen. However the small bowel then began coming back out at which time I decided that there is no further benefit to delaying the patient's transfer by attending to reduce the small bowel and decision was made to dress the post this 0 with a wet dressing and plan for transport. I advised paramedics to keep the patient in a Trendelenburg position to decrease abdominal wall pressure, keep the wet dressing on the small bowel. Continue IV fluids wide open. Give fentanyl as needed for pain. Patient was transferred via EMS to [facility]. She remained hemodynamically stable throughout her ER stay, bowel remained pink and well perfused upon leaving the ER. Disposition Clinical Impression: Abdominal wall dehiscence, Evisceration of bowel, Postoperative complication Disposition: OTHER INSTITUTION NOT DEFINED Condition: Serious Referrals: Edmar Holder III, MD [Primary Care Provider] - 1-2 days Time of Disposition: 04:56 - Out of Hospital Transfer - Req. Specs Out of Hospital Transfer - Requested Specifics: Other Emergency Center ( [facility])
== END 2017-10-16 04:53 | disposition other institution (70) ==
LOC: EC 04:08
DX: T81.31XA Disruption of external operation (surgical) wound, not elsewhere classified, initial encounter (principal); E03.9 Hypothyroidism, unspecified; I10 Essential (primary) hypertension; I25.2 Old myocardial infarction; Z87.891 Personal history of nicotine dependence; Z79.899 Other long term (current) drug therapy; Z88.2 Allergy status to sulfonamides; Z95.818 Presence of other cardiac implants and grafts; Z90.5 Acquired absence of kidney; Z85.528 Personal history of other malignant neoplasm of kidney; Z53.8 Procedure and treatment not carried out for other reasons
CPT/HCPCS: 36415; 87040; 99285; 96365; 96375; J1170; J2543

== ENCOUNTER 2017-10-29 10:35 | Inpatient (IN) | payer BC ==
[2017-10-29] MEDS ORDERED: MORPHINE SULFATE 4 MG/ML SYRINGE IV STA (11:20)
[2017-10-29] MEDS ORDERED: SODIUM CHLORIDE 0.9% 1,000 ML IV STA ×2 (11:20)
[2017-10-29] MEDS ORDERED: ONDANSETRON 4 MG/2 ML VIAL IVP STA (11:20)
[2017-10-29] MEDS ORDERED: LORazepam 2 MG/ML INJ IV STA (11:21)
[2017-10-29 11:37] LABS: Basophils % (A) 0 %; Eosinophils # (A) 0.1 k/uL (0-0.7); Eosinophils % (A) 0 %; HCT 42.3 % (34.0-46.0); HGB 13.4 gm/dL (11.4-16.0); Lymphocytes # (A) 0.9 k/uL (1.0-4.8); Lymphocytes % (A) 7 %; MCH 28.4 pg (25.0-35.0); MCHC 31.7 g/dL (31.0-37.0); MCV 89.8 fL (80.0-100.0); Mean Platelet Volume 6.6; Monocytes # (A) 0.3 k/uL (0-1.0); Monocytes % (A) 2 %; Neutrophils # (A) 11.3 k/uL (1.3-7.7); Neutrophils % (A) 89 %; Platelet Count 473 k/uL (150-450); RBC 4.72 m/uL (3.80-5.40); WBC 12.7 k/uL (3.8-10.6)
[2017-10-29 12:01] LABS: INR 1.1 (<1.2); Prothrombin Time 10.7 sec (9.0-12.0)
--- NOTE | 2017-10-29 12:10 | ED ---
General Adult HPI - General Chief complaint: Nausea/Vomiting/Diarrhea Stated complaint: Vomiting Time Seen by Provider: 10/29/17 11:00 Source: patient, RN notes reviewed, old records reviewed Mode of arrival: wheelchair Limitations: no limitations - History of Present Illness Initial comments: This is a 62-year-old female presents emergency room today with 2. onset of vomiting yesterday. Patient reports that she's been having episodes of dry heaving for the past 12 hours. Patient's medical history includes left nephrectomy. Approximately 2 weeks ago she was seen in emergency department for bowel evisceration. At that time she transferred back to [facility] and had her bowels return. Patient reports she's been having normal stools. No bloody emesis. Patient presents emergency Department extremely anxious. She states that she is unable to breathe. - Related Data Home Medications Medication Instructions Recorded Confirmed Levothyroxine Sodium [Levoxyl] 88 mcg PO QAM 08/15/14 10/29/17 Metoprolol Succinate (ER) [Toprol 25 mg PO DAILY 02/17/17 10/29/17 XL] ALPRAZolam [Xanax] 0.5 mg PO TID PRN 07/08/17 10/29/17 Citalopram Hydrobromide [CeleXA] 40 mg PO DAILY 07/08/17 10/29/17 Varenicline [Chantix Continuing 1 mg PO BID 07/08/17 10/29/17 Pack] Allergies Allergy/AdvReac Type Severity Reaction Status Date / Time Sulfa (Sulfonamide Allergy Rash/Hives Verified 10/29/17 10:52 Antibiotics) Review of Systems ROS Statement: Those systems with pertinent positive or pertinent negative responses have been documented in the HPI. ROS Other: All systems not noted in ROS Statement are negative. Past Medical History Past Medical History: Chest Pain / Angina, GERD/Reflux, Hypertension, Myocardial Infarction ([place]), Pneumonia, Thyroid Disorder Additional Past Medical History / Comment(s): Recent upper respiratory infection , "2013 electrical heart attack", PUD, hypothyroid, low back pain, past migraines, lt foot fx with surgery, rib fx, diverticulosis dx/benign polyp.stress test 02-17-17 Last Myocardial Infarction Date:: 2012 History of Any Multi-Drug Resistant Organisms: None Reported Past Surgical History: Back Surgery, Heart Catheterization, Orthopedic Surgery, Tonsillectomy, Tubal Ligation Additional Past Surgical History / Comment(s): 2012 cardiac cath-normal, colonoscopy/benign polypectomy, ORIF LT FT, back x2, NEPHRECTOMY Past Anesthesia/Blood Transfusion Reactions: No Reported Reaction Additional Past Anesthesia/Blood Transfusion Reaction / Comment(s): no hx blood transfusion Past Psychological History: No Psychological Hx Reported Smoking Status: Former smoker Past Alcohol Use History: None Reported Past Drug Use History: None Reported - Past Family History Mother Family Medical History: No Reported History Additional Family Medical History / Comment(s): Mother was healthy and lived to be 92 yrs. old. Father History Unknown: Yes Family Medical History: No Reported History General Exam - General Exam Comments Initial Comments: 62-year-old female. Alert and oriented. is very anxious. Retching. Limitations: no limitations General appearance: alert, in no apparent distress Head exam: Present: atraumatic, normocephalic, normal inspection Eye exam: Present: normal appearance, PERRL, EOMI. Absent: scleral icterus, conjunctival injection, periorbital swelling ENT exam: Present: normal exam, mucous membranes moist Neck exam: Present: normal inspection. Absent: tenderness, meningismus, lymphadenopathy Respiratory exam: Present: normal lung sounds bilaterally. Absent: respiratory distress, wheezes, rales, rhonchi, stridor Cardiovascular Exam: Present: regular rate, normal rhythm, normal heart sounds. Absent: systolic murmur, diastolic murmur, rubs, gallop, clicks GI/Abdominal exam: Present: soft, tenderness ( is abdominal tenderness. Well-appearing incision over the mid abdomen.), normal bowel sounds. Absent: distended, guarding, rebound, rigid Extremities exam: Present: normal inspection, full ROM, normal capillary refill. Absent: tenderness, pedal edema, joint swelling, calf tenderness Back exam: Present: normal inspection Neurological exam: Present: alert, oriented X3, CN II-XII intact Psychiatric exam: Present: normal affect, normal mood Skin exam: Present: warm, dry, intact, normal color. Absent: rash Course Vital Signs 10/29/17 10/29/17 10:37 12:52 Temperature 97.6 F Pulse Rate 114 H 97 Respiratory 20 22 Rate Blood Pressure 180/106 193/94 O2 Sat by Pulse 100 100 Oximetry - Reevaluation(s) Reevaluation #1: 10/29/17 13:39 is reevaluated reports discontinuing of abdominal pain. Informed of the negative CT and lab results. Patient continues to be quite anxious and hyperventilating in the emergency department. Medical Decision Making - Medical Decision Making Patient is a 62-year-old female presents emergency Department chief complaint of in Nausea and Vomiting. History of Nephrectomy and That Will Surgery after She Fell. Normal Bowel Movements. She States Vomiting Started Yesterday. While the Emergency Room She's Been Quite Anxious. Patient Has Had No Fevers or Chills. She Was Hyperventilating on Exam. She Is Given Ativan and Morphine. Complains of Abdominal Pain and Cramping. CAT Scan without Contrast Was Completed and Negative for Any Acute Process. At This Time Patient's Lab Work Is Relatively Unremarkable Signs Elevated Lactic Acid of 4.6. Likely Due To the Vomiting and Hyperventilation. Patient Given 2 L Bolus Rechecking Lactic This Time. Her Abdomen Is Nontender. Surgical Site Appears Well. Discussed at This Time to Have the Patient admitted for Hydration and Nausea Medication. Patient Agrees to Admission. Dr. Zhang Discussed the Case with Dr. Valenzuela.. - Lab Data Result diagrams: 10/29/17 11:10 10/29/17 11:10 Lab Results 10/29/17 10/29/17 10/29/17 Range/Units 11:10 11:10 11:10 WBC 12.7 H (3.8-10.6) k/uL RBC 4.72 (3.80-5.40) m/uL Hgb 13.4 (11.4-16.0) gm/dL Hct 42.3 (34.0-46.0) % MCV 89.8 (80.0-100.0) fL MCH 28.4 (25.0-35.0) pg MCHC 31.7 (31.0-37.0) g/dL RDW 14.0 (11.5-15.5) % Plt Count 473 H (150-450) k/uL Neutrophils % 89 % Lymphocytes % 7 % Monocytes % 2 % Eosinophils % 0 % Basophils % 0 % Neutrophils # 11.3 H (1.3-7.7) k/uL Lymphocytes # 0.9 L (1.0-4.8) k/uL Monocytes # 0.3 (0-1.0) k/uL Eosinophils # 0.1 (0-0.7) k/uL Basophils # 0.0 (0-0.2) k/uL PT 10.7 (9.0-12.0) sec INR 1.1 (<1.2) APTT 22.0 (22.0-30.0) sec Sodium 141 (137-145) mmol/L Potassium 3.6 (3.5-5.1) mmol/L Chloride 108 H (98-107) mmol/L Carbon Dioxide 16 L (22-30) mmol/L Anion Gap 17 mmol/L BUN 21 H (7-17) mg/dL Creatinine 1.20 H (0.52-1.04) mg/dL Est GFR (CKD-EPI)AfAm 57 (>60 ml/min/1.73 sqM) Est GFR (CKD-EPI)NonAf 49 (>60 ml/min/1.73 sqM) Glucose 182 H (74-99) mg/dL Lactic Ac Sepsis Rflx Plasma Lactic Acid Yg (0.7-2.0) mmol/L Calcium 10.6 H (8.4-10.2) mg/dL Total Bilirubin 0.6 (0.2-1.3) mg/dL AST 27 (14-36) U/L ALT 29 (9-52) U/L Alkaline Phosphatase 116 (38-126) U/L Troponin I (0.000-0.034) ng/mL Total Protein 8.7 H (6.3-8.2) g/dL Albumin 4.7 (3.5-5.0) g/dL Amylase 165 H (30-110) U/L Lipase 61 (23-300) U/L Urine Color Urine Appearance (Clear) Urine pH (5.0-8.0) Ur Specific [place] (1.001-1.035) Urine Protein (Negative) Urine Glucose (UA) (Negative) Urine Ketones (Negative) Urine Blood (Negative) Urine Nitrite (Negative) Urine Bilirubin (Negative) Urine Urobilinogen (<2.0) mg/dL Ur Leukocyte Esterase (Negative) Urine RBC (0-5) /hpf Urine WBC (0-5) /hpf Ur Squamous Epith Cells (0-4) /hpf Urine Bacteria (None) /hpf Hyaline Casts (0-2) /lpf Urine Mucus (None) /hpf 10/29/17 10/29/17 10/29/17 Range/Units 11:10 11:10 11:48 WBC (3.8-10.6) k/uL RBC (3.80-5.40) m/uL Hgb (11.4-16.0) gm/dL Hct (34.0-46.0) % MCV (80.0-100.0) fL MCH (25.0-35.0) pg MCHC (31.0-37.0) g/dL RDW (11.5-15.5) % Plt Count (150-450) k/uL Neutrophils % % Lymphocytes % % Monocytes % % Eosinophils % % Basophils % % Neutrophils # (1.3-7.7) k/uL Lymphocytes # (1.0-4.8) k/uL Monocytes # (0-1.0) k/uL Eosinophils # (0-0.7) k/uL Basophils # (0-0.2) k/uL PT (9.0-12.0) sec INR (<1.2) APTT (22.0-30.0) sec Sodium (137-145) mmol/L Potassium (3.5-5.1) mmol/L Chloride (98-107) mmol/L Carbon Dioxide (22-30) mmol/L Anion Gap mmol/L BUN (7-17) mg/dL Creatinine (0.52-1.04) mg/dL Est GFR (CKD-EPI)AfAm (>60 ml/min/1.73 sqM) Est GFR (CKD-EPI)NonAf (>60 ml/min/1.73 sqM) Glucose (74-99) mg/dL Lactic Ac Sepsis Rflx Y Plasma Lactic Acid Yg 4.6 H* (0.7-2.0) mmol/L Calcium (8.4-10.2) mg/dL Total Bilirubin (0.2-1.3) mg/dL AST (14-36) U/L ALT (9-52) U/L Alkaline Phosphatase (38-126) U/L Troponin I <0.012 (0.000-0.034) ng/mL Total Protein (6.3-8.2) g/dL Albumin (3.5-5.0) g/dL Amylase (30-110) U/L Lipase (23-300) U/L Urine Color Urine Appearance (Clear) Urine pH (5.0-8.0) Ur Specific [place] (1.001-1.035) Urine Protein (Negative) Urine Glucose (UA) (Negative) Urine Ketones (Negative) Urine Blood (Negative) Urine Nitrite (Negative) Urine Bilirubin (Negative) Urine Urobilinogen (<2.0) mg/dL Ur Leukocyte Esterase (Negative) Urine RBC (0-5) /hpf Urine WBC (0-5) /hpf Ur Squamous Epith Cells (0-4) /hpf Urine Bacteria (None) /hpf Hyaline Casts (0-2) /lpf Urine Mucus (None) /hpf 10/29/17 Range/Units 12:00 WBC (3.8-10.6) k/uL RBC (3.80-5.40) m/uL Hgb (11.4-16.0) gm/dL Hct (34.0-46.0) % MCV (80.0-100.0) fL MCH (25.0-35.0) pg MCHC (31.0-37.0) g/dL RDW (11.5-15.5) % Plt Count (150-450) k/uL Neutrophils % % Lymphocytes % % Monocytes % % Eosinophils % % Basophils % % Neutrophils # (1.3-7.7) k/uL Lymphocytes # (1.0-4.8) k/uL Monocytes # (0-1.0) k/uL Eosinophils # (0-0.7) k/uL Basophils # (0-0.2) k/uL PT (9.0-12.0) sec INR (<1.2) APTT (22.0-30.0) sec Sodium (137-145) mmol/L Potassium (3.5-5.1) mmol/L Chloride (98-107) mmol/L Carbon Dioxide (22-30) mmol/L Anion Gap mmol/L BUN (7-17) mg/dL Creatinine (0.52-1.04) mg/dL Est GFR (CKD-EPI)AfAm (>60 ml/min/1.73 sqM) Est GFR (CKD-EPI)NonAf (>60 ml/min/1.73 sqM) Glucose (74-99) mg/dL Lactic Ac Sepsis Rflx Plasma Lactic Acid Yg (0.7-2.0) mmol/L Calcium (8.4-10.2) mg/dL Total Bilirubin (0.2-1.3) mg/dL AST (14-36) U/L ALT (9-52) U/L Alkaline Phosphatase (38-126) U/L Troponin I (0.000-0.034) ng/mL Total Protein (6.3-8.2) g/dL Albumin (3.5-5.0) g/dL Amylase (30-110) U/L Lipase (23-300) U/L Urine Color Yellow Urine Appearance Clear (Clear) Urine pH 5.5 (5.0-8.0) Ur Specific [place] 1.022 (1.001-1.035) Urine Protein 2+ H (Negative) Urine Glucose (UA) Trace H (Negative) Urine Ketones 2+ H (Negative) Urine Blood Small H (Negative) Urine Nitrite Negative (Negative) Urine Bilirubin Negative (Negative) Urine Urobilinogen 2.0 (<2.0) mg/dL Ur Leukocyte Esterase Negative (Negative) Urine RBC 2 (0-5) /hpf Urine WBC 2 (0-5) /hpf Ur Squamous Epith Cells 2 (0-4) /hpf Urine Bacteria Rare H (None) /hpf Hyaline Casts 4 H (0-2) /lpf Urine Mucus Few H (None) /hpf Interpretation: normal EKG, nonspecific ST-T wave changes - Radiology Data Radiology results: report reviewed Noncontrast CAT scan. There is prominence of postop changes. Chest x-rays negative for any acute cardiopulmonary process. Disposition Clinical Impression: Intractable nausea and vomiting, Elevated lactic acid level Disposition: HOME SELF-CARE Condition: Good Is patient prescribed a controlled substance at d/c from ED?: No Referrals: Edmar Holder III, MD [Primary Care Provider] - 1-2 days Time of Disposition: 15:04
[2017-10-29 12:12] LABS: Albumin 4.7 g/dL (3.5-5.0); Calcium 10.6 mg/dL (8.4-10.2); Potassium 3.6 mmol/L (3.5-5.1); Total Bilirubin 0.6 mg/dL (0.2-1.3); Total Protein 8.7 g/dL (6.3-8.2)
--- NOTE | 2017-10-29 12:16 | XR ---
EXAMINATION TYPE: XR chest 2V DATE OF EXAM: 10/29/2017 COMPARISON: Prior chest x-ray 07/08/2017 HISTORY: Shortness of breath and dizziness TECHNIQUE: Frontal and lateral views of the chest are obtained. FINDINGS: There is no focal air space opacity, pleural effusion, or pneumothorax seen. The cardiac silhouette size is within normal limits. The osseous structures are intact. Patient is rotated. Tanja pect an underlying spinal curvature. IMPRESSION: No acute cardiopulmonary process.
[2017-10-29 12:23] LABS: Appearance,Urine Clear (Clear); Bacteria,Urine Rare /hpf; Bilirubin,Urine Negative (Negative); Blood,Urine Small (Negative); Color,Urine Yellow; Glucose,Urine (UA) Trace (Negative); Hyaline Casts,Urine 4 /lpf (0-2); Ketones,Urine 2+ (Negative); Leukocyte Esterase,Urine Negative (Negative); Mucus,Urine Few /hpf; Nitrite,Urine Negative (Negative); PH, Urine 5.5 (5.0-8.0); Protein,Urine 2+ (Negative); RBC,Urine 2 /hpf (0-5); Specific Gravity,Urine 1.022 (1.001-1.035); Squamous Epithelial Cell,Urine 2 /hpf (0-4); WBC,Urine 2 /hpf (0-5)
[2017-10-29] MEDS ORDERED: diphenhydrAMINE 50 MG/ML 1 ML VIAL IVP STA (12:34)
[2017-10-29] MEDS ORDERED: METOCLOPRAMIDE 5 MG/ML 2 ML VIAL IVP STA (12:34)
--- NOTE | 2017-10-29 12:38 | CT ---
EXAMINATION TYPE: CT abdomen pelvis wo con DATE OF EXAM: 10/29/2017 COMPARISON: Prior CT abdomen pelvis 08/04/2017 HISTORY: Pain. Vomiting, recent upper respiratory infection. Nephrectomy 3 weeks ago due to Renal can cer. No chemo or radiation. Surgical history: back, heart catheterization and tubal ligation. History of diverticulitis. CT DLP: 372.80 mGycm Automated exposure control for dose reduction was used. TECHNIQUE: Helical acquisition of images from the lung bases through the pelvis. FINDINGS: Small hiatal hernia is again noted. Lack of contrast could compromise sensitivity. Subcutan eous emphysema over the lower anterior abdominal wall in the left. LUNG BASES: Stable. Cystic lucencies present in the left lower lobe. There is possible posterior diap hragmatic hernia on the right containing fat. Minimal dependent atelectatic changes are present. AORTA: No significant abnormality is appreciated. LIVER/GB: Stable, hypodense foci present within the liver is been previously described, gallbladder i s normal.. PANCREAS: No significant abnormality is seen. SPLEEN: No significant abnormality is seen. ADRENALS: No significant abnormality is seen. KIDNEYS: Patient is post left nephrectomy. Cortical cysts are associated with the right kidney as on prior. REPRODUCTIVE ORGANS: No significant abnormality is seen. URINARY BLADDER: No significant abnormality is seen. BOWEL: Extensive diverticular change again noted in the sigmoid colon.. FREE AIR: No Free Air is visible. ASCITES: None visible. PELVIC ADENOPATHY: None visualized. RETROPERITONEAL ADENOPATHY: No Retroperitoneal Adenopathy visible. OSSEOUS STRUCTURES: Postop changes are noted in the lumbar spine, there is degenerative disc disease as well as scoliosis. Possible spinal stenosis present at L3-4.. IMPRESSION: NONCONTRAST EXAM. POSTOP CHANGES. ADDITIONAL FINDINGS ABOVE.
[2017-10-29] MEDS ORDERED: SODIUM CHLORIDE 0.9% 1,000 ML IV ONE (13:35)
[2017-10-29] MEDS ORDERED: PANTOPRAZOLE 40 MG/10 ML VIAL IVP STA (13:39)
[2017-10-29] MEDS ORDERED: LORazepam 2 MG/ML INJ IV PRN (15:06)
[2017-10-29] MEDS ORDERED: NALOXONE 0.4 MG/ML 1 ML VIAL IV PRN (15:06)
[2017-10-29] MEDS ORDERED: ACETAMINOPHEN TAB 325 MG TAB PO PRN (15:06)
[2017-10-29] MEDS ORDERED: IBUPROFEN 400 MG TAB PO PRN (15:06)
[2017-10-29] MEDS: ONDANSETRON 4 MG/2 ML VIAL IVP PRN ×2 (16:19→23:20)
[2017-10-29] MEDS ORDERED: LABETALOL 5 MG/ML VIAL MDV IVP STA (16:25)
[2017-10-29] MEDS: MORPHINE SULFATE 4 MG/ML SYRINGE IV PRN ×2 (18:00→21:57)
[2017-10-29] MEDS: SODIUM CHLORIDE 0.9% 1,000 ML IV SCH ×2 (19:19→21:30)
[2017-10-29] MEDS: VARENICLINE 1 MG TAB PO SCH (19:24)
[2017-10-29] MEDS: HYDROcodone/APAP 5-325MG 1 EACH TAB PO PRN ×2 (19:24→22:57)
[2017-10-29] MEDS: LEVOFLOXACIN 500MG-D5W PMX 500 MG in DEXTROSE/WATER 1 100ML.BAG IVPB SCH (22:47)
--- NOTE | 2017-10-29 22:59 | HP ---
HISTORY AND PHYSICAL DATE OF SERVICE: 10/30/2017 CHIEF COMPLAINTS: Vomiting and nausea. HISTORY OF PRESENT ILLNESS: This 62-year-old woman with a past medical history of GERD, hypertension, history of myocardial infarction, pneumonia, being followed by Dr. Holder in the outpatient setting, recently had a left nephrectomy in [facility]. Subsequently, patient had colonic bowel evisceration. Patient also had transferred back to [facility] and bowel return was performed. Currently the patient complains of nausea, episodes of dry heaving and the patient was evaluated and admitted for further evaluation and treatment. The abdominal-pelvis CAT scan was done which showed postop changes, small hiatal hernia. There is no history of any fever, rigors. No history of headache, loss of consciousness or seizures at this time. A chest x-ray was also done in the ER, showed no acute process. LABS: White count is 12.7 and creatinine is 1.2. Plasma lactic acid 4.6. PAST MEDICAL HISTORY: History of chest pain, history of GERD, hypertension, myocardial infarction, history of pneumonia with recent left nephrectomy and other issues as mentioned earlier. HOME MEDICATIONS: 1. Chantix 1 mg p.o. b.i.d. 2. Toprol-XL 25 mg p.o. daily. 3. Levaquin 88 mcg p.o. daily. 4. Celexa 40 mg daily. 5. Xanax 0.5 t.i.d. p.r.n. ALLERGIES: SULFA. FAMILY HISTORY: No history of any heart disease or strokes in the family. SOCIAL HISTORY: Previous history of smoking. No history of alcohol. REVIEW OF SYSTEMS: ENT: No diminished hearing, diminished vision. CARDIOVASCULAR: No angina, palpitations. RESPIRATORY: No cough. GI: As mentioned earlier. U: As mentioned earlier. NERVOUS: No numbness or weakness. ALLERGY/IMMUNOLOGY: No asthma or hay fever. MUSCULOSKELETAL: As mentioned earlier. HEMATOLOGY/ONCOLOGY: No history of anemia. ENDOCRINE: Hypothyroidism. CONSTITUTIONAL: As mentioned earlier. DERMATOLOGY: Negative. RHEUMATOLOGY: Negative. PSYCHIATRY: As mentioned earlier. PHYSICAL EXAMINATION: The patient alert, oriented x3. Pulse 93, blood pressure 160/94, respirations 18, temperature 99.8, pulse ox 97% on room air. HEENT: Conjunctivae normal. Oral mucosa moist. NECK: No jugular venous distention. No carotid bruits. No thyroid enlargement. No lymph node enlargement. CARDIOVASCULAR: S1, S2 muffled. RESPIRATORY: Breath sounds diminished in the bases. No rhonchi. No crackles. ABDOMEN: Soft. Mild diffuse discomfort to palpation. Otherwise, no guarding, no rigidity. No mass palpable. Mild diffuse distension present. Bowel sounds present. LEGS: No edema. No swelling. NERVOUS SYSTEM: Higher functions as mentioned earlier. Moves all 4 limbs. No focal motor or sensory deficits. LYMPHATIC: No lymphadenopathy in neck or axillae. SKIN: No ulcer, rash or bleeding. JOINTS: No active deforming arthropathy. ASSESSMENT: 1. Nausea, vomiting, possible acute gastritis. 2. Dehydration. 3. Elevated creatinine with possibly mild acute renal failure. 4. Elevated lactic acid. 5. History of recent left nephrectomy and bowel evisceration. 6. Increased WBC. 7. History of gastroesophageal reflux disease. 8. Hypertension. 9. Myocardial infarction. 10.History of pneumonia. 11.History of hypothyroidism. 12.History of low back pain. 13.History of degenerative joint disease. RECOMMENDATIONS AND DISCUSSION: In this 62-year-old woman who presented with multiple complex medical issues, will monitor the patient closely, continue with the current medical management and symptomatic treatment. Otherwise at this time, I would recommend a surgical evaluation and continue to monitor. Repeat labs will be ordered. I would also recommend the patient start on empiric antibiotics. Obtain cultures. The lactic acid is elevated. The possibility of sepsis versus dehydration also considered. I would also recommend infectious disease evaluation. Prognosis guarded because of multiple complex medical issues. Further recommendations to follow. A copy of this dictation will be forwarded to Dr. Holder who is the primary physician who is the primary physician. MMODL / IJN: [id number] /
[2017-10-30] MEDS: MORPHINE SULFATE 4 MG/ML SYRINGE IV PRN ×6 (02:09→21:49)
[2017-10-30] MEDS: HYDROcodone/APAP 5-325MG 1 EACH TAB PO PRN (05:00)
[2017-10-30] MEDS: LEVOTHYROXINE 88 MCG TAB PO SCH (06:03)
[2017-10-30] MEDS: SODIUM CHLORIDE 0.9% 1,000 ML IV SCH ×3 (06:23→21:42)
[2017-10-30] MEDS: PANTOPRAZOLE 40 MG/10 ML VIAL IV SCH (08:36)
[2017-10-30] MEDS: CITALOPRAM HYDROBROMIDE 20 MG TAB PO SCH (08:36)
[2017-10-30] MEDS: METOPROLOL SUCCINATE (ER) 25 MG TAB.ER.24H PO SCH (08:36)
[2017-10-30] MEDS: VARENICLINE 1 MG TAB PO SCH ×2 (08:36→21:39)
[2017-10-30] MEDS: ALPRAZolam 0.5 MG TAB PO PRN ×2 (08:36→18:22)
[2017-10-30] MEDS: ONDANSETRON 4 MG/2 ML VIAL IVP PRN (08:38)
[2017-10-30 12:01] VITALS: BMI 24.3
--- NOTE | 2017-10-30 15:11 | P.GSCN ---
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 She had minimally invasive technique and had multiple complications including abdominal wound evisceration of her colon and dehiscence less than 3 weeks ago. She sees her surgeons out of [facility]. As of 3 days ago, she had yonny removed from her lower abdominal incision. She reports as of yesterday having intractable nausea with vomiting and abdominal pain since her presentation. No reports of recent fevers or chills. General surgery consult is obtained for her complicated surgical history. PAST MEDICAL HISTORY: See list. PAST SURGICAL HISTORY: See list. MEDICATIONS: See list. ALLERGIES: See list. SOCIAL HISTORY: No illicit drug use FAMILY HISTORY: No reports of Crohn's disease or inflammatory bowel disease REVIEW OF ORGAN SYSTEMS: CONSTITUTIONAL: No fevers or chills HEENT: No troubles with vision or hearing. No reports of dysphagia. ENDOCRINE: Reports of thyroid disorders. No diabetes. CARDIOVASCULAR: No heart attack. No chest pain. RESPIRATORY: No shortness of breath or pneumonia. GASTROINTESTINAL: No reports of recent blood in stools. NEURO: No reports of stroke or seizure disorders. PSYCH: Has depression including anxiety. HEMATOLOGIC: No easy bruising or bleeding LYMPHATIC: The patient denies any lumps and bumps around the neck. GENITOURINARY: Recent history of nephrectomy MUSCULOSKELETAL: Denies back pain, stiffness or joint arthritis. SKIN: No skin cancer or rash per PHYSICAL EXAM: VITAL SIGNS: Currently stable. GENERAL: Well-developed in no acute distress. Pleasant HEENT: No sclera icterus. Extraocular movements grossly intact. Moist buccal mucosa. Head is atraumatic, normocephalic. Hears conversational speech. No nasal drainage. NECK: Supple without lymphadenopathy. CHEST: Non-labored respirations and equal bilateral excursions. CARDIOVASCULAR: Regular rate with regular rhythm. Palpable 2+ radial pulses. ABDOMEN: Soft. Nondistended. No peritonitis. Nontender. Well-healed laparoscopic sites and lower midline incision intact. MUSCULOSKELETAL: No clubbing, cyanosis or edema. NEUROLOGIC: No focal or lateralizing signs. Cranial nerves II through XII grossly intact. PSYCH: Appropriate affect. Alert and oriented to person, place and time. SKIN: Well perfused. Good skin turgor. LABS: Reviewed STUDIES: CT of the abdomen pelvis reviewed demonstrating no intra-abdominal process such as a free perforation or bowel obstruction. ASSESSMENT: 1. History of elevated lactate level. 2. History of nausea. 3. Ileus secondary to dehydration PLAN: 1. IV fluid hydration. 2. CT demonstrates no acute surgical intervention. 3. Patient advised to follow up with her operating surgeon. 4. May repeat lactate levels after adequate hydration Thank you for this kind consultation. Past Medical History Past Medical History: Cancer, Chest Pain / Angina, GERD/Reflux, Hypertension, Myocardial Infarction ([place]), Pneumonia, Thyroid Disorder Additional Past Medical History / Comment(s): Recent upper respiratory infection , "2012 electrical heart attack", PUD, hypothyroid, low back pain, past migraines, lt foot fx with surgery, rib fx, diverticulosis dx/benign polyp.stress test 02-17-17, lt kidney ca(sx) Last Myocardial Infarction Date:: 2012 History of Any Multi-Drug Resistant Organisms: None Reported Past Surgical History: Back Surgery, Heart Catheterization, Orthopedic Surgery, Tonsillectomy, Tubal Ligation Additional Past Surgical History / Comment(s): 2012 cardiac cath-normal, colonoscopy/benign polypectomy, ORIF LT FT, back x2, "lt NEPHRECTOMY d/t cancer 2 weeks ago" Past Anesthesia/Blood Transfusion Reactions: No Reported Reaction Additional Past Anesthesia/Blood Transfusion Reaction / Comm: no hx blood transfusion Smoking Status: Former smoker - Past Family History Mother Family Medical History: No Reported History Additional Family Medical History / Comment(s): Mother was healthy and lived to be 92 yrs. old. Father History Unknown: Yes Family Medical History: No Reported History Medications and Allergies Home Medications Medication Instructions Recorded Confirmed Type Levothyroxine Sodium [Levoxyl] 88 mcg PO QAM 08/15/14 10/29/17 History Metoprolol Succinate (ER) [Toprol 25 mg PO DAILY 02/17/17 10/29/17 History XL] ALPRAZolam [Xanax] 0.5 mg PO TID PRN 07/08/17 10/29/17 History Citalopram Hydrobromide [CeleXA] 40 mg PO DAILY 07/08/17 10/29/17 History Varenicline [Chantix Continuing 1 mg PO BID 07/08/17 10/29/17 History Pack] Allergies Allergy/AdvReac Type Severity Reaction Status Date / Time Sulfa (Sulfonamide Allergy Rash/Hives Verified 10/29/17 10:52 Antibiotics) Surgical - Exam Vital Signs Temp Pulse Resp BP Pulse Ox 97.6 F 114 H 20 180/106 100 10/29/17 10:37 10/29/17 10:37 10/29/17 10:37 10/29/17 10:37 10/29/17 10:37 Results - Labs 10/29/17 11:10 10/29/17 11:10 Abnormal Lab Results - Last 24 Hours (Table) 10/29/17 Range/Units 15:16 Plasma Lactic Acid Yg 2.2 H* (0.7-2.0) mmol/L Microbiology - Last 24 Hours (Table) 10/29/17 11:10 Blood Culture - Preliminary Blood No Growth after 24 hours 10/29/17 22:41 Urine Culture - Preliminary Urine,Voided - Imaging CT scan - abdomen: report reviewed, image reviewed CT scan - pelvis: report reviewed, image reviewed (No findings of bowel obstruction or pneumoperitoneum. No evidence of fascial dehiscence.) Assessment and Plan (1) History of partial nephrectomy Current Visit: Yes Status: Acute Code(s): Z90.5 - ACQUIRED ABSENCE OF KIDNEY SNOMED Code(s): 492860709 (2) Elevated lactic acid level Current Visit: Yes Status: Acute Code(s): R79.89 - OTHER SPECIFIED ABNORMAL FINDINGS OF BLOOD CHEMISTRY SNOMED Code(s): 9334394 (3) Intractable nausea and vomiting Current Visit: Yes Status: Acute Code(s): R11.2 - NAUSEA WITH VOMITING, UNSPECIFIED SNOMED Code(s): 102015702 (4) Renal mass Current Visit: No Status: Acute Code(s): N28.89 - OTHER SPECIFIED DISORDERS OF KIDNEY AND URETER SNOMED Code(s): 010377482
[2017-10-30] MEDS: LEVOFLOXACIN 500MG-D5W PMX 500 MG in DEXTROSE/WATER 1 100ML.BAG IVPB SCH (21:43)
[2017-10-31] MEDS: MORPHINE SULFATE 4 MG/ML SYRINGE IV PRN ×4 (02:57→18:05)
[2017-10-31] MEDS: LEVOTHYROXINE 88 MCG TAB PO SCH (06:09)
[2017-10-31] MEDS: SODIUM CHLORIDE 0.9% 1,000 ML IV SCH (06:09)
[2017-10-31 06:46] LABS: Basophils % (A) 1 %; Eosinophils # (A) 0.2 k/uL (0-0.7); Eosinophils % (A) 3 %; HCT 35.2 % (34.0-46.0); HGB 11.2 gm/dL (11.4-16.0); Lymphocytes # (A) 1.3 k/uL (1.0-4.8); Lymphocytes % (A) 20 %; MCH 29.1 pg (25.0-35.0); MCHC 31.9 g/dL (31.0-37.0); MCV 91.3 fL (80.0-100.0); Mean Platelet Volume 6.8; Monocytes # (A) 0.5 k/uL (0-1.0); Monocytes % (A) 7 %; Neutrophils # (A) 4.5 k/uL (1.3-7.7); Neutrophils % (A) 68 %; Platelet Count 282 k/uL (150-450); RBC 3.86 m/uL (3.80-5.40); RDW 14.1 % (11.5-15.5); WBC 6.7 k/uL (3.8-10.6)
[2017-10-31 07:04] LABS: Calcium 8.9 mg/dL (8.4-10.2)
[2017-10-31] MEDS: VARENICLINE 1 MG TAB PO SCH (09:07)
[2017-10-31] MEDS: PANTOPRAZOLE 40 MG/10 ML VIAL IV SCH (09:07)
[2017-10-31] MEDS: METOPROLOL SUCCINATE (ER) 25 MG TAB.ER.24H PO SCH (09:07)
[2017-10-31] MEDS: CITALOPRAM HYDROBROMIDE 20 MG TAB PO SCH (09:07)
[2017-10-31] MEDS: HYDROcodone/APAP 5-325MG 1 EACH TAB PO PRN (10:26)
[2017-10-31 12:09] VITALS: TEMP 98.1
[2017-10-31] MEDS: ALPRAZolam 0.5 MG TAB PO PRN (14:55)
--- NOTE | 2017-10-31 15:32 | P.PN ---
Subjective Progress Note Date: 10/31/17 The patient is a 62-year-old female with past history of wound evisceration less than 3 weeks ago at an outside institution. She is tolerating diet. She has expected mild abdominal discomfort as she recently had surgery less than 3 weeks ago. No further reports of nausea and vomiting. She is resting comfortably. Objective - Vital Signs Vital signs: Vital Signs Temp 98.1 F 10/31/17 12:00 Pulse 65 10/31/17 12:00 Resp 16 10/31/17 12:00 BP 158/90 10/31/17 12:00 Pulse Ox 96 10/31/17 12:00 Intake & Output 10/30/17 10/31/17 10/31/17 18:59 06:59 18:59 Intake Total 360 900 480 Balance 360 900 480 Weight 70.3 kg 72.3 kg Intake: Oral 360 900 480 Other: Voiding Method Toilet # Voids 1 1 - Exam GENERAL: Well-developed in no acute distress. Pleasant HEENT: No sclera icterus. Extraocular movements grossly intact. Moist buccal mucosa. Head is atraumatic, normocephalic. Hears conversational speech. No nasal drainage. NECK: Supple without lymphadenopathy. CHEST: Non-labored respirations and equal bilateral excursions. CARDIOVASCULAR: Regular rate with regular rhythm. Palpable 2+ radial pulses. ABDOMEN: Soft. Nondistended. Minimal tenderness below the umbilicus. No peritonitis. No signs of infection MUSCULOSKELETAL: No clubbing, cyanosis or edema. NEUROLOGIC: No focal or lateralizing signs. Cranial nerves II through XII grossly intact. PSYCH: Appropriate affect. Alert and oriented to person, place and time. SKIN: Well perfused. Good skin turgor. - Labs CBC & Chem 7: 10/31/17 05:55 10/31/17 05:55 Labs: Abnormal Lab Results - Last 24 Hours (Table) 10/31/17 Range/Units 05:55 Hgb 11.2 L (11.4-16.0) gm/dL Microbiology - Last 24 Hours (Table) 10/29/17 22:41 Urine Culture - Final Urine,Voided 10/29/17 11:10 Blood Culture - Preliminary Blood No Growth after 48 hours Assessment and Plan (1) History of partial nephrectomy Current Visit: Yes Status: Acute Code(s): Z90.5 - ACQUIRED ABSENCE OF KIDNEY SNOMED Code(s): 449410651 (2) Elevated lactic acid level Current Visit: Yes Status: Acute Code(s): R79.89 - OTHER SPECIFIED ABNORMAL FINDINGS OF BLOOD CHEMISTRY SNOMED Code(s): 8823412 (3) Intractable nausea and vomiting Current Visit: Yes Status: Acute Code(s): R11.2 - NAUSEA WITH VOMITING, UNSPECIFIED SNOMED Code(s): 834691677 (4) Renal mass Current Visit: No Status: Acute Code(s): N28.89 - OTHER SPECIFIED DISORDERS OF KIDNEY AND URETER SNOMED Code(s): 781737920 Plan: 1. She is doing well. She is stable from a surgical standpoint for discharge. 2. Diet as tolerated. 3. Follow up with her operating surgeon as outpatient 4. Will sign off. Please reconsult as needed.
[2017-10-31 15:58] VITALS: BP 139/89; PULSE 64; RESP 18
--- NOTE | 2017-10-31 16:00 | P.CONS ---
History of Present Illness - Reason for Consult Consult date: 10/31/17 - Chief Complaint Nausea and emesis - History of Present Illness Pleasant 62-year-old female resents to Hospital with onset of nausea and emesis but did not respond to vacation that she had at home with Zofran isn' t orally disintegrating tablet. Despite her attempts for hydration and control of her nausea and emesis she became profound dehydrated and presents to the emergency center for further evaluation. She has a very significant recent past medical history associated with her renal cell carcinoma of the right kidney. She had evaluation and surgical intervention for removal of the right kidney. She is able to relate that the cancer was maintained within the kidney itself, with no evidence of any metastatic disease. She has not been told that she needs any further intervention such as chemotherapy. She does relate in the postoperative time frame however that she developed a significant amount of abdominal pain she had some nausea and emesis, her abdominal incision ruptured and she did have colonic evisceration. She was brought by EMS and transferred back to her surgeon at [facility]. Repair of abdominal wall evisceration occurred and she was doing relatively well. She over now had the symptoms as above with severe nausea and emesis and profound dehydration. The patient relates at home she was not having any fevers or chills or rigors. She generally was not feeling poorly except for the nausea and emesis. She is related that she was having significant amounts of abdominal pain that had been somewhat persistent. She relates before the evisceration she did have asymmetry to her abdominal wall where she was having increasing amounts of pain and swelling to the right side of the incision. With her abdomen is now flat but continues to have pain into that right side an ongoing basis. Fortunately at this time her nausea and emesis have resolved. She's had a stool without great difficulty. She does relate the day before the nausea and emesis started she definitely had a change of her bowel process and that the stool and become very firm and she was having difficulty passing the stool. She has not had is difficulties with this type of stool up until that day. Review of Systems HEENT:Denies headache or acute visual change. Denies sinus or mouth discomforts. Denies neck stiffness or pain. Denies significant oral cavity pain. Denies difficulty on swallowing. Lungs: Denies significant shortness of breath, cough, sputum production, or hemoptysis. Cardiovascular: Denies significant shortness of breath, chest pain, chest wall pain, orthopnea, dyspnea on exertion, syncope Gastrointestinal: As per the HPI severe nausea and emesis since admission. One bout of constipation normally has relatively soft stool. She's had no hematemesis melena or hematochezia. Musculoskeletal: denies significant myalgias or arthralgias. No new joint swelling. Denies new back pain. Skin: Denies new rash or lesions. No new ulcers or wounds are related.. Neuro: Denies headache or visual change. Denies any new onset weakness or difficulty with ambulation. Denies falls or seizures. Psychiatric:Denies anxiety or depression. Endocrine: Her fatigue is improving and her weight loss has stabilized. 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", PUD, hypothyroid, low back pain, past migraines, lt foot fx with surgery, rib fx, diverticulosis dx/benign polyp.stress test 02-17-17, lt kidney ca(sx) Last Myocardial Infarction Date:: 2012 History of Any Multi-Drug Resistant Organisms: None Reported Past Surgical History: Back Surgery, Heart Catheterization, Orthopedic Surgery, Tonsillectomy, Tubal Ligation Additional Past Surgical History / Comment(s): 2012 cardiac cath-normal, colonoscopy/benign polypectomy, ORIF LT FT, back x2, "lt NEPHRECTOMY d/t cancer 2 weeks ago" Past Anesthesia/Blood Transfusion Reactions: No Reported Reaction Additional Past Anesthesia/Blood Transfusion Reaction / Comm: no hx blood transfusion Additional Psychological History / Comment(s): and lives with the . Does not work outside of the home. No experience. No extensive travel. Has pet dogs at home. No current tobacco smoker. No significant Alcohol or recreational drug use. Smoking Status: Former smoker - Past Family History Mother Family Medical History: No Reported History Additional Family Medical History / Comment(s): Mother was healthy and lived to be 92 yrs. old. Father History Unknown: Yes Family Medical History: No Reported History Medications and Allergies Home Medications and Allergies Comment(s): Current Medications Acetaminophen (Tylenol Tab) 650 mg PO Q6HR PRN PRN Reason: Mild Pain or Fever > 100.5 Hydrocodone Bitart/Acetaminophen ([place] 5-325) 1 each PO Q4HR PRN PRN Reason: Moderate Pain Last Admin: 10/31/17 10:26 Dose: 1 each Alprazolam (Xanax) 0.5 mg PO TID PRN PRN Reason: Anxiety Last Admin: 10/31/17 14:55 Dose: 0.5 mg Citalopram Hydrobromide (Celexa) 40 mg PO DAILY [facility] Last Admin: 10/31/17 09:07 Dose: 40 mg Sodium Chloride (Saline 0.9%) 1,000 mls @ 120 mls/hr IV .Q8H20M [facility] Last Admin: 10/31/17 06:09 Dose: 120 mls/hr Levofloxacin 500 mg/ IV (Solution) 100 mls @ 100 mls/hr IVPB Q24H [facility] Last Admin: 10/30/17 21:43 Dose: 100 mls/hr Ibuprofen (Motrin) 400 mg PO Q6HR PRN PRN Reason: Mild Pain or Fever > 100.5 Levothyroxine Sodium (Synthroid) 88 mcg PO QAM@0630 [facility] Last Admin: 10/31/17 06:09 Dose: 88 mcg Lorazepam (Ativan) 0.5 mg IV Q6HR PRN PRN Reason: Anxiety Metoprolol Succinate (Toprol Xl) 25 mg PO DAILY [facility] Last Admin: 10/31/17 09:07 Dose: 25 mg Morphine Sulfate (Morphine Sulfate (Inj)) 4 mg IV Q4HR PRN PRN Reason: Severe Pain Last Admin: 10/31/17 13:24 Dose: 4 mg Naloxone HCl (Narcan) 0.2 mg IV Q2M PRN PRN Reason: Opioid Reversal Ondansetron HCl (Zofran) 4 mg IVP Q8HR PRN PRN Reason: Nausea And Vomiting Last Admin: 10/30/17 08:38 Dose: 4 mg Pantoprazole Sodium (Protonix) 40 mg IV DAILY [facility] Last Admin: 10/31/17 09:07 Dose: 40 mg Varenicline (Chantix) 1 mg PO BID [facility] Last Admin: 10/31/17 09:07 Dose: Not Given Home Medications Medication Instructions Recorded Confirmed Type Levothyroxine Sodium [Levoxyl] 88 mcg PO QAM 08/15/14 10/29/17 History Metoprolol Succinate (ER) [Toprol 25 mg PO DAILY 02/17/17 10/29/17 History XL] ALPRAZolam [Xanax] 0.5 mg PO TID PRN 07/08/17 10/29/17 History Citalopram Hydrobromide [CeleXA] 40 mg PO DAILY 07/08/17 10/29/17 History Varenicline [Chantix Continuing 1 mg PO BID 07/08/17 10/29/17 History Pack] Allergies Allergy/AdvReac Type Severity Reaction Status Date / Time Sulfa (Sulfonamide Allergy Rash/Hives Verified 10/29/17 10:52 Antibiotics) Physical Exam Vitals: Vital Signs Temp Pulse Resp BP Pulse Ox 10/31/17 12:00 98.1 F 65 16 158/90 96 10/31/17 08:00 97.7 F 65 16 158/90 96 10/31/17 03:45 97.7 F 55 L 18 176/89 98 10/30/17 23:30 98.9 F 73 18 134/74 97 10/30/17 21:40 98.6 F 58 L 18 133/75 97 10/30/17 15:58 97.6 F 60 18 153/76 96 Intake and Output 10/31/17 10/31/17 10/31/17 06:59 14:59 22:59 Intake Total 900 480 Balance 900 480 Intake: Oral 900 480 Other: Voiding Method Toilet # Voids 1 1 Weight 72.3 kg 62-year-old woman who is feeling considerably better since coming to Hospital, her nausea emesis have improved but is still having some residual right lower quadrant abdominal pain HEENT: Anicteric conjunctiva are pink and moist nasal mucosa grossly intact without significant lesions, there is no thrush. Neck: The neck is supple without significant lymphadenopathy or thyromegaly. Lungs: Good bilateral air entry without significant crackles or wheezing. There is no significant bronchial sounds. There is no egophony or dullness. Heart: Regular rate and rhythm with an audible S1-S2, no S3 no S4. There is no significant murmur click or rub, PMI was nondisplaced. Abdomen: Positive bowel sounds soft has tenderness in the right lower quadrant without palpable mass. No organomegaly. The recent surgical incisions are well -healed. There is no evidence of any fluctuance or crepitance to the surgical sites. Extremities: The upper extremities have excellent pulses they are symmetric, no significant petechiae or telangiectasia. No splinter hemorrhages were noted. The lower extremities are free from significant edema. The peripheral pulses were 2+ and symmetric. Neuro: Awake alert oriented to person place and time. There are no acute new gross focal sensory motor deficits. Results CBC & Chem 7: 10/31/17 05:55 10/31/17 05:55 Labs: Abnormal Lab Results - Last 24 Hours (Table) 10/31/17 Range/Units 05:55 Hgb 11.2 L (11.4-16.0) gm/dL Microbiology - Last 24 Hours (Table) 10/29/17 22:41 Urine Culture - Final Urine,Voided 10/29/17 11:10 Blood Culture - Preliminary Blood No Growth after 48 hours Laboratory Results WBC 6.7 k/uL (3.8-10.6) 10/31/17 05:55 RBC 3.86 m/uL (3.80-5.40) 10/31/17 05:55 Hgb 11.2 gm/dL (11.4-16.0) L 10/31/17 05:55 Hct 35.2 % (34.0-46.0) 10/31/17 05:55 MCV 91.3 fL (80.0-100.0) 10/31/17 05:55 MCH 29.1 pg (25.0-35.0) 10/31/17 05:55 MCHC 31.9 g/dL (31.0-37.0) 10/31/17 05:55 RDW 14.1 % (11.5-15.5) 10/31/17 05:55 Plt Count 282 k/uL (150-450) 10/31/17 05:55 Neutrophils % 68 % 10/31/17 05:55 Lymphocytes % 20 % 10/31/17 05:55 Monocytes % 7 % 10/31/17 05:55 Eosinophils % 3 % 10/31/17 05:55 Basophils % 1 % 10/31/17 05:55 Neutrophils # 4.5 k/uL (1.3-7.7) 10/31/17 05:55 Lymphocytes # 1.3 k/uL (1.0-4.8) 10/31/17 05:55 Monocytes # 0.5 k/uL (0-1.0) 10/31/17 05:55 Eosinophils # 0.2 k/uL (0-0.7) 10/31/17 05:55 Basophils # 0.0 k/uL (0-0.2) 10/31/17 05:55 PT 10.7 sec (9.0-12.0) 10/29/17 11:10 INR 1.1 (<1.2) 10/29/17 11:10 APTT 22.0 sec (22.0-30.0) 10/29/17 11:10 Sodium 138 mmol/L (137-145) 10/31/17 05:55 Potassium 4.0 mmol/L (3.5-5.1) 10/31/17 05:55 Chloride 106 mmol/L (98-107) 10/31/17 05:55 Carbon Dioxide 26 mmol/L (22-30) 10/31/17 05:55 Anion Gap 6 mmol/L 10/31/17 05:55 BUN 9 mg/dL (7-17) 10/31/17 05:55 Creatinine 1.00 mg/dL (0.52-1.04) 10/31/17 05:55 Est GFR (CKD-EPI)AfAm 71 (>60 ml/min/1.73 sqM) 10/31/17 05:55 Est GFR (CKD-EPI)NonAf 61 (>60 ml/min/1.73 sqM) 10/31/17 05:55 Glucose 91 mg/dL (74-99) 10/31/17 05:55 Lactic Ac Sepsis Rflx Y 10/29/17 11:48 Plasma Lactic Acid Yg 2.2 mmol/L (0.7-2.0) H* 10/29/17 15:16 Calcium 8.9 mg/dL (8.4-10.2) 10/31/17 05:55 Total Bilirubin 0.6 mg/dL (0.2-1.3) 10/29/17 11:10 AST 27 U/L (14-36) 10/29/17 11:10 ALT 29 U/L (9-52) 10/29/17 11:10 Alkaline Phosphatase 116 U/L (38-126) 10/29/17 11:10 Troponin I <0.012 ng/mL (0.000-0.034) 10/29/17 11:10 Total Protein 8.7 g/dL (6.3-8.2) H 10/29/17 11:10 Albumin 4.7 g/dL (3.5-5.0) 10/29/17 11:10 Amylase 165 U/L (30-110) H 10/29/17 11:10 Lipase 61 U/L (23-300) 10/29/17 11:10 Urine Color Yellow 10/29/17 12:00 Urine Appearance Clear (Clear) 10/29/17 12:00 Urine pH 5.5 (5.0-8.0) 10/29/17 12:00 Ur Specific Epps 1.022 (1.001-1.035) 10/29/17 12:00 Urine Protein 2+ (Negative) H 10/29/17 12:00 Urine Glucose (UA) Trace (Negative) H 10/29/17 12:00 Urine Ketones 2+ (Negative) H 10/29/17 12:00 Urine Blood Small (Negative) H 10/29/17 12:00 Urine Nitrite Negative (Negative) 10/29/17 12:00 Urine Bilirubin Negative (Negative) 10/29/17 12:00 Urine Urobilinogen 2.0 mg/dL (<2.0) 10/29/17 12:00 Ur Leukocyte Esterase Negative (Negative) 10/29/17 12:00 Urine RBC 2 /hpf (0-5) 10/29/17 12:00 Urine WBC 2 /hpf (0-5) 10/29/17 12:00 Ur Squamous Epith Cells 2 /hpf (0-4) 10/29/17 12:00 Urine Bacteria Rare /hpf (None) H 10/29/17 12:00 Hyaline Casts 4 /lpf (0-2) H 10/29/17 12:00 Urine Mucus Few /hpf (None) H 10/29/17 12:00 Microbiology 10/29/17 22:41 Urine,Voided Urine Culture - Final 10/29/17 11:10 Blood Blood Culture - Preliminary No Growth after 48 hours Assessment and Plan (1) Elevated lactic acid level Narrative/Plan: 62-year-old female presents to Hospital with irretractable nausea and emesis as well as some worsening of her right lower quadrant abdominal pain. This is of significant concern given her recent history of abdominal evisceration. The patient did have evidence of an elevated lactic acid level admission. She however was profoundly dehydrated and with hydration she is now much improved. Her nausea and emesis resolved. She is eating solid food without difficulties. She is passing stool without significant discomfort or difficulty. She is having some ongoing right lower quadrant abdominal pain that is being addressed by the surgical team. I'm concerned that with the current situation that she is having difficulties with some adhesions that have resulted in her difficulty with tolerating food and fluids resulting in rapid dehydration and rapidly worsening nausea and emesis. The patient did relate to a difficulty with a firm to hard stool that was difficult to pass just before she became ill. We discussed that with her current recent extensive abdominal surgical history. Insuring that she has at least 1 soft stool per day help her avoid any significant difficulties. Suggest that she takes MiraLAX on a daily basis and adjusting the dose that she does have 1 soft stool per day.. The patient's urinalysis and culture are negative. Blood cultures are negative. Chest x-ray is negative for any infiltration, and computed tomography scan of the abdomen and pelvis failed to reveal evidence of any acute infectious process to his recent surgical intervention. At this time it appears the patient's lactic acidosis in the bases of her acute dehydration. She does not appear to have underlying infection. Would not require any ongoing antibiotic therapy. Current Visit: Yes Status: Acute Code(s): R79.89 - OTHER SPECIFIED ABNORMAL FINDINGS OF BLOOD CHEMISTRY SNOMED Code(s): 1711625 (2) Intractable nausea and vomiting Current Visit: Yes Status: Acute Code(s): R11.2 - NAUSEA WITH VOMITING, UNSPECIFIED SNOMED Code(s): 553597244 (3) Evisceration of bowel Current Visit: No Status: Acute Code(s): K43.9 - VENTRAL HERNIA WITHOUT OBSTRUCTION OR GANGRENE SNOMED Code(s): 67680572
--- NOTE | 2017-10-31 18:52 | P.PN ---
Subjective Progress Note Date: 10/30/17 Principal diagnosis: Intractable nausea and vomiting Ms. Humphrey is a 62-year-old female with a past medical history of GERD, hypertension, [place], pneumonia, recent left nephrectomy in [facility] coming in complaining of nausea and vomiting for the past 1 day. Patient has history of colonic Bouley for sedation and return bowel surgery was performed at [facility]. Patient had a CAT scan of the chest showing postop changes and a small hiatal hernia. Today the patient is lying in bed states that she is not throwing up but still feels nauseous. She also complains of pain in her lower abdomen at the surgical site. Patient denies having any chest pain and difficulty in breathing. No dysuria or hematuria. No fever chills or rigors. Objective - Vital Signs Vital signs: Vital Signs Temp 97.6 F 10/30/17 15:58 Pulse 60 10/30/17 15:58 Resp 18 10/30/17 15:58 BP 153/76 10/30/17 15:58 Pulse Ox 96 10/30/17 15:58 Intake & Output 10/30/17 10/30/17 10/31/17 06:59 18:59 06:59 Intake Total 1600 360 Output Total 450 Balance 1150 360 Weight 70.3 kg 70.3 kg Intake: IV 1600 0.9 @ 100 1600 Oral 360 Output: Urine 450 - Exam GEN. APPEARANCE: alert, in no apparent distress HEAD EXAM: atraumatic, normocephalic, normal inspection EYE EXAM: No pallor no icterus ENT EXAM: normal exam, mucous membranes moist NECK EXAM: No thyromegaly no JVD RESPIRATORY EXAM: Bilateral breath sounds are positive. No wheezes or crackles. CARDIOVASCULAR EXAM: S1 and S2 heard. No additional sounds. GI/ABDOMINAL EXAM: soft, normal bowel sounds. Surgical scar in place without any surrounding infection or inflammation. EXTREMITIES EXAM: No edema NEUROLOGICAL EXAM: alert, oriented X3, no focal deficits - Labs CBC & Chem 7: 10/31/17 05:55 10/31/17 05:55 Labs: Microbiology - Last 24 Hours (Table) 10/29/17 11:10 Blood Culture - Preliminary Blood No Growth after 24 hours 10/29/17 22:41 Urine Culture - Preliminary Urine,Voided Assessment and Plan Assessment: ASSESSMENT Intractable nausea and vomiting Dehydration AK I secondary to above History of recent left nephrectomy and bowel evisceration GERD Hypertension Hypothyroidism Chronic low back pain Degenerative joint disease PLAN:Patient was given symptomatic management with IV fluids and antiemetics. She was empirically started on levofloxacin due to elevated white count and recent history of bowel surgery. ID Dr. Jean Baptiste has been consulted. Surgical consult has also been obtained. Further recommendations to follow depending on the progress of the patient.
--- NOTE | 2017-10-31 18:57 | P.DS ---
Providers Date of admission: 10/29/17 15:39 Expected date of discharge: 10/31/17 Attending physician: Robbin Valenzuela Consults: 10/29/17 21:30 Consult Physician Routine Consulting Provider: Ken Herring Consult Reason/Comments: Recent abdominal wound dehiscence w/ repair; current post op n/v Do you want consulting provider notified?: Yes 10/29/17 21:57 Consult Physician Routine Consulting Provider: Rajat Jean Baptiste Consult Reason/Comments: sepsis?? Do you want consulting provider notified?: Yes Primary care physician: Edmar Holder [facility] Course: Mrs. Humphrey is a 62-year-old female with a past medical history of hypertension , hyperlipidemia, thyroid disorder coming into the hospital with a chief complaint of nausea and vomiting. Patient had history of recent surgical intervention for left nephrectomy for renal cell carcinoma. After that postop period was complicated by colonic evisceration from the abdominal incision. Repair of the abdominal wall evisceration was done at [facility]. She was discharged home and after that she developed abdominal pain along with nausea and vomiting as she was not able to keep down any of her medications. Patient was started empirically on antibiotics and given symptomatic treatment with IV fluids and antiemetics after which she responded. Patient also had a bowel movement. Surgical consult infectious disease consult has been obtained due to recent history of surgery. No antibiotics were recommended and no surgical intervention was needed during the hospital stay. Patient's symptoms of nausea and vomiting improved and she is deemed stable to be discharged home today. Patient's vitals and physical exam within normal limits at the time of discharge. Discharge diagnosis Intractable nausea and vomiting Dehydration AK I secondary to above History of recent left nephrectomy and bowel evisceration GERD Hypertension Hypothyroidism Chronic low back pain Degenerative joint disease She is advised to follow up with her PCP Dr. Holder in 3-5 days. More than 30 minutes spent towards the discharge of the patient. Patient Condition at Discharge: Good Plan - Discharge Summary Discharge Rx Participant: No New Discharge Prescriptions: New RX: HYDROcodone/APAP 5-325MG [[place] 5-325] 1 each PO Q4HR PRN #18 tab PRN Reason: Moderate Pain RX: Ibuprofen [Motrin] 400 mg PO Q6HR PRN #20 tab PRN Reason: Mild Pain Or Fever > 100.5 Continue RX: Levothyroxine Sodium [Levoxyl] 88 mcg PO QAM RX: Metoprolol Succinate (ER) [Toprol XL] 25 mg PO DAILY RX: Varenicline [Chantix Continuing Pack] 1 mg PO BID RX: Citalopram Hydrobromide [CeleXA] 40 mg PO DAILY RX: ALPRAZolam [Xanax] 0.5 mg PO TID PRN PRN Reason: Anxiety Discharge Medication List RX: Levothyroxine Sodium [Levoxyl] 88 mcg PO QAM 08/15/14 [History] RX: Metoprolol Succinate (ER) [Toprol XL] 25 mg PO DAILY 02/17/17 [History] RX: ALPRAZolam [Xanax] 0.5 mg PO TID PRN 07/08/17 [History] RX: Citalopram Hydrobromide [CeleXA] 40 mg PO DAILY 07/08/17 [History] RX: Varenicline [Chantix Continuing Pack] 1 mg PO BID 07/08/17 [History] RX: HYDROcodone/APAP 5-325MG [[place] 5-325] 1 each PO Q4HR PRN #18 tab 10/31/17 [ Rx] RX: Ibuprofen [Motrin] 400 mg PO Q6HR PRN #20 tab 10/31/17 [Rx] Follow up Appointment(s)/Referral(s): Edmar Holder III, MD [Primary Care Provider] - 1-2 days (Please make appointment when office is open) Patient Instructions/Handouts: Nephrectomy (DC) Discharge Disposition: HOME SELF-CARE
== END 2017-10-31 18:27 | disposition home or self-care (01) | DRG 392 ==
LOC: EC 10:35 → 4MS4W 15:39 → 6SEL 17:08
PROVIDERS: ADMIT Hospitalist; ATTEND Hospitalist
DX: R11.2 Nausea with vomiting, unspecified (principal); E87.2 Acidosis; K56.7 Ileus, unspecified; N17.9 Acute kidney failure, unspecified; E03.9 Hypothyroidism, unspecified; E78.5 Hyperlipidemia, unspecified; E86.0 Dehydration; G89.29 Other chronic pain; I10 Essential (primary) hypertension; I25.2 Old myocardial infarction; K21.9 Gastro-esophageal reflux disease without esophagitis; K44.9 Diaphragmatic hernia without obstruction or gangrene; M19.90 Unspecified osteoarthritis, unspecified site; G43.909 Migraine, unspecified, not intractable, without status migrainosus; K57.90 Diverticulosis of intestine, part unspecified, without perforation or abscess without bleeding; M54.5 Low back pain; R06.4 Hyperventilation; Z79.899 Other long term (current) drug therapy; Z79.890 Hormone replacement therapy; Z90.5 Acquired absence of kidney; Z87.891 Personal history of nicotine dependence; Z87.11 Personal history of peptic ulcer disease; Z87.01 Personal history of pneumonia (recurrent); Z85.528 Personal history of other malignant neoplasm of kidney; Z88.2 Allergy status to sulfonamides; Z98.51 Tubal ligation status
CPT/HCPCS: 36415; 71046; 74176; 80048; 80053; 81001; 82150; 83605; 83690; 84484; 85025; 85610; 85730; 87040; 87086; 93005; 96361; 96374; 96375; 96376; 99285

== ENCOUNTER → 2017-11-04 | Outpatient (CLI) | payer BC ==
[2017-11-04 13:17] LABS: Basophils # (A) 0.1 k/uL (0-0.2); Basophils % (A) 1 %; Eosinophils # (A) 0.4 k/uL (0-0.7); Eosinophils % (A) 7 %; HCT 39.2 % (34.0-46.0); HGB 12.2 gm/dL (11.4-16.0); Lymphocytes # (A) 1.6 k/uL (1.0-4.8); Lymphocytes % (A) 25 %; MCH 29.1 pg (25.0-35.0); MCHC 31.2 g/dL (31.0-37.0); MCV 93.3 fL (80.0-100.0); Mean Platelet Volume 6.5; Monocytes # (A) 0.4 k/uL (0-1.0); Monocytes % (A) 6 %; Neutrophils % (A) 61 %; Platelet Count 305 k/uL (150-450); RDW 14.3 % (11.5-15.5); WBC 6.6 k/uL (3.8-10.6)
[2017-11-04 13:26] LABS: Calcium 9.6 mg/dL (8.4-10.2); Potassium 4.8 mmol/L (3.5-5.1); Total Bilirubin 0.4 mg/dL (0.2-1.3); Total Protein 7.5 g/dL (6.3-8.2)
== END | disposition home or self-care (01) ==
LOC: LABWHC1 12:52
PROVIDERS: ATTEND Nurse Practitioner Family
DX: K56.7 Ileus, unspecified (principal); R11.2 Nausea with vomiting, unspecified; E87.2 Acidosis
CPT/HCPCS: 36415; 80053; 83605; 85025

== ENCOUNTER → 2017-12-17 | Outpatient (CLI) | payer BC ==
--- NOTE | 2017-12-17 12:38 | US ---
EXAMINATION TYPE: US abdomen complete DATE OF EXAM: 12/17/2017 COMPARISON: CT 10/29/2017, MR 08/11/2017 CLINICAL HISTORY: R10.9 Abd pain. History left kidney mass, left kidney surgically absent EXAM MEASUREMENTS: Liver Length: 15.1 cm Gallbladder Wall: 0.2 cm CBD: 0.7 cm Spleen: 8.9 cm Right Kidney: 10.4 x 4.3 x 5.4 cm Left Kidney: Surgically absent Pancreas: Obscured by bowel gas, visualized portions appear wnl Liver: Two hyperechoic areas visualized, largest measuring 1.9 x 1.4 x 1.8 cm, probable hemangioma . The smaller measures 1.2 x 1.5 x 1.3 cm. Gallbladder: wnl Evidence for sonographic Pavon's sign: No CBD: Dilated Spleen: Accessory spleen measuring 1.2 x 1.0 1.2 cm Right Kidney: Two cystic areas visualized, largest measuring 2.4 x 2.4 x 2.3 cm Left Kidney: Surgically absent Upper IVC: wnl Abd Aorta: wnl Area of patient's pain scanned, no sonographic evidence for any abnormality visualized. IMPRESSION: 1. Hyperechoic areas within the liver may be related to hemangioma. 2. Simple appearing cysts within the right kidney. 3. No abnormal ultrasound findings in the area of the patient's indicated pain.
== END ==
LOC: RADUSWWP 09:33
PROVIDERS: ATTEND Family Medicine
DX: N28.1 Cyst of kidney, acquired (principal); R93.2 Abnormal findings on diagnostic imaging of liver and biliary tract
CPT/HCPCS: 76700

== ENCOUNTER → 2018-02-18 | Outpatient (CLI) | payer BC ==
[2018-02-18 15:27] LABS: HCT 41.9 % (34.0-46.0); HGB 13.3 gm/dL (11.4-16.0); MCH 28.2 pg (25.0-35.0); MCHC 31.7 g/dL (31.0-37.0); Mean Platelet Volume 6.5; Platelet Count 316 k/uL (150-450); RDW 13.6 % (11.5-15.5); WBC 6.7 k/uL (3.8-10.6)
[2018-02-18 16:07] LABS: Amorphous Sediment,Urine Rare /hpf; Appearance,Urine Clear (Clear); Bilirubin,Urine Negative (Negative); Blood,Urine Trace (Negative); Color,Urine Light Yellow; Glucose,Urine (UA) Negative (Negative); Ketones,Urine Negative (Negative); Leukocyte Esterase,Urine Negative (Negative); Nitrite,Urine Negative (Negative); Protein,Urine Negative (Negative); RBC,Urine <1 /hpf (0-5); Specific Gravity,Urine 1.006 (1.001-1.035); Squamous Epithelial Cell,Urine 1 /hpf (0-4); Urobilinogen,Urine <2.0 mg/dL (<2.0); WBC,Urine 1 /hpf (0-5)
[2018-02-18 18:46] LABS: Iron Saturation 18.93 (12.00-45.00)
[2018-02-18 18:49] LABS: Albumin 4.4 g/dL (3.80-4.90); Albumin/Globulin Ratio 1.52 (1.20-2.10); Globulin 2.9 g/dL (2.1-3.7); Magnesium 1.7 mg/dL (1.5-2.4); Phosphorus 3.9 mg/dL (2.4-5.1); Potassium 4.5 mmol/L (3.5-5.5); Total Bilirubin 0.2 mg/dL (0.3-1.2); Total Protein 7.3 g/dL (6.2-8.2); Uric Acid 4.1 mg/dL (2.9-7.7)
[2018-02-18 18:54] LABS: Vitamin D 25 Hydroxy 15.2 ng/mL (30.0-100.0)
[2018-02-18 19:05] LABS: Parathyroid Hormone Intact 50.8 pg/mL (14.0-72.0)
== END | disposition home or self-care (01) ==
LOC: LABWHC1 14:36
PROVIDERS: ATTEND Internal Medicine
DX: N18.2 Chronic kidney disease, stage 2 (mild) (principal); D63.1 Anemia in chronic kidney disease; R80.9 Proteinuria, unspecified; E55.9 Vitamin D deficiency, unspecified; M10.9 Gout, unspecified
CPT/HCPCS: 36415; 80053; 81001; 82306; 82728; 83540; 83550; 83735; 83970; 84100; 84550; 85027

== ENCOUNTER → 2018-06-30 | Outpatient (CLI) | payer OTHER ==
--- NOTE | 2018-07-01 09:31 | US ---
EXAMINATION TYPE: US venous doppler duplex LE RT DATE OF EXAM: 06/30/2018 5:19 PM COMPARISON: NONE CLINICAL HISTORY: I80.9 PHLEBITIS THROMBOPHLEBITIS. Pain and edema right leg SIDE PERFORMED: Right TECHNIQUE: The lower extremity deep venous system is examined utilizing real time linear array sonog cory with graded compression, doppler sonography and color-flow sonography. VESSELS IMAGED: External Iliac Vein (EIV) Common Femoral Vein Deep Femoral Vein Greater Saphenous Vein * Femoral Vein Popliteal Vein Small Saphenous Vein * Proximal Calf Veins (* superficial vessels) Right Leg: No evidence of DVT. complex anechoic area right popliteal fossa = 7.0cm, probable Lobato's cyst IMPRESSION: 1. Right lower extremity ultrasound negative for deep venous thrombosis. 2. Popliteal cyst right posterior knee
== END | disposition home or self-care (01) ==
LOC: RADUSWWP 16:56
PROVIDERS: ATTEND Orthopaedic Surgery
DX: M71.21 Synovial cyst of popliteal space [Baker], right knee (principal)

== ENCOUNTER 2018-07-02 09:56 | Emergency (ER) | payer OTHER ==
[2018-07-02] MEDS ORDERED: HYDROcodone/APAP 5-325MG 1 EACH TAB PO STA (10:38)
[2018-07-02] MEDS ORDERED: KETOROLAC 30 MG/ML 1 ML VIAL IM STA (10:42)
--- NOTE | 2018-07-02 10:43 | ED ---
Lower Extremity Injury HPI - General Chief Complaint: Extremity Injury, Lower Stated Complaint: Knee Pain/Swelling Time Seen by Provider: 07/02/18 10:15 Source: patient, family, RN notes reviewed, old records reviewed Mode of arrival: wheelchair Limitations: no limitations - History of Present Illness Initial Comments: Patient is a 62-year-old female who presents emergency Department today with complaints of right knee pain and swelling and inability to move the joint today. She's been having symptoms of the knee discomfort for the past [address] Goldberg and had outpatient ultrasound which is negative for DVT but did show a large cyst. Patient is not aware of this. Patient states that she started with heel pain in the she was walking abnormally. Patient states that it seemed that when she was walking normally due to her heel. She started to have this worsening right knee pain. No fall or trauma. - Related Data Home Medications Medication Instructions Recorded Confirmed Metoprolol Succinate (ER) [Toprol 25 mg PO DAILY 02/17/17 05/25/18 XL] ALPRAZolam [Xanax] 0.5 mg PO TID PRN 07/08/17 05/25/18 Citalopram Hydrobromide [CeleXA] 40 mg PO DAILY 07/08/17 05/25/18 Ergocalciferol (Vitamin D2) 50,000 unit PO Q14D 05/25/18 05/25/18 [Drisdol] Mirabegron [Myrbetriq] 25 mg PO DAILY 05/25/18 05/25/18 Ondansetron Odt [Zofran ODT] 4 mg PO Q8HR PRN 05/25/18 05/25/18 Previous Rx's Medication Instructions Recorded Famotidine 20 mg PO BID 14 Days #28 tab 05/26/18 Levothyroxine Sodium [Levoxyl] 112 mcg PO DAILY #30 tab 05/26/18 Ibuprofen [Motrin] 600 mg PO Q8HR PRN #20 tab 07/02/18 Allergies Allergy/AdvReac Type Severity Reaction Status Date / Time Sulfa (Sulfonamide Allergy Rash/Hives Verified 05/25/18 09:16 Antibiotics) Review of Systems ROS Statement: Those systems with pertinent positive or pertinent negative responses have been documented in the HPI. ROS Other: All systems not noted in ROS Statement are negative. Past Medical History Past Medical History: Cancer, Chest Pain / Angina, GERD/Reflux, Hypertension, Myocardial Infarction ([place]), Pneumonia, Thyroid Disorder Additional Past Medical History / Comment(s): Recent upper respiratory infection, "2012 electrical heart attack", PUD, hypothyroid, low back pain, past migraines, lt foot fx with surgery, rib fx, diverticulosis dx/benign polyp.stress test 02-17-17, lt kidney ca(sx) Last Myocardial Infarction Date:: 2012 History of Any Multi-Drug Resistant Organisms: None Reported Past Surgical History: Back Surgery, Heart Catheterization, Orthopedic Surgery, Tonsillectomy, Tubal Ligation Additional Past Surgical History / Comment(s): 2012 cardiac cath-normal, 01/11/17 colonoscopy/benign polypectomy, ORIF LT FT, back x2, "lt NEPHRECTOMY d/t cancer 2 weeks ago" Past Anesthesia/Blood Transfusion Reactions: No Reported Reaction Additional Past Anesthesia/Blood Transfusion Reaction / Comment(s): no hx blood transfusion Past Psychological History: No Psychological Hx Reported Smoking Status: Former smoker Past Alcohol Use History: None Reported Past Drug Use History: None Reported - Past Family History Mother Family Medical History: No Reported History Additional Family Medical History / Comment(s): Mother was healthy and lived to be 92 yrs. old. Father History Unknown: Yes Family Medical History: No Reported History General Exam - General Exam Comments Initial Comments: This is a 62-year-old female. Alert and oriented 3. Patient appears in no significant distress. Limitations: no limitations General appearance: alert, in no apparent distress Head exam: Present: atraumatic, normocephalic, normal inspection Eye exam: Present: normal appearance, PERRL, EOMI. Absent: scleral icterus, conjunctival injection, periorbital swelling ENT exam: Present: normal exam, mucous membranes moist Neck exam: Present: normal inspection. Absent: tenderness, meningismus, lymphadenopathy Respiratory exam: Present: normal lung sounds bilaterally Cardiovascular Exam: Present: regular rate, normal rhythm, normal heart sounds. Absent: systolic murmur, diastolic murmur, rubs, gallop, clicks GI/Abdominal exam: Present: soft, normal bowel sounds. Absent: distended, tenderness, guarding, rebound, rigid Extremities exam: Present: normal inspection, full ROM, normal capillary refill. Absent: tenderness, pedal edema, joint swelling, calf tenderness Right Knee exam: Present: tenderness, swelling. Absent: normal inspection, full ROM (Anal if any significant flexion of the knee.), abrasion Lower Leg exam: Present: normal inspection, full ROM Ankle exam: Present: normal inspection, full ROM Foot/Toe exam: Present: normal inspection, full ROM Back exam: Present: normal inspection Neurological exam: Present: alert, oriented X3, CN II-XII intact Psychiatric exam: Present: normal affect, normal mood Skin exam: Present: warm, dry, intact, normal color. Absent: rash Course Vital Signs 07/02/18 10:07 Temperature 98.4 F Pulse Rate 67 Respiratory 18 Rate Blood Pressure 108/77 O2 Sat by Pulse 99 Oximetry Medical Decision Making - Medical Decision Making Patient is a 62-year-old female present to emergency department today with complaining of right knee pain and swelling. She had an outpatient ultrasound and this was negative for DVT but a large Lobato cyst was noted. She is pain with range of motion. Patient's x-ray shows posterior arthritis. Patient will be given 1 pain pill here. Given referral back to see or so she'll likely need have the Lobato cyst drained. I discussed rest ice and elevate. Discussed return parameters. - Radiology Data Radiology results: report reviewed X-ray shows no acute osseous lesions. Evidence of changes from osteoarthritis. Ultrasound shows evidence of a large Lobato cyst measuring 7 cm per no evidence of blood clot. Disposition Clinical Impression: Lobato cyst Disposition: HOME SELF-CARE Condition: Good Instructions (If sedation given, give patient instructions): Bakers Cyst (ED) Additional Instructions: Patient advised to follow-up with primary care physician. Patient should follow-up with orthopedic consult. Take anti-inflammatory medicines as prescribed and to use crutches. Follow-up with [facility] for possible drainage of the knee. Prescriptions: Ibuprofen [Motrin] 600 mg PO Q8HR PRN #20 tab PRN Reason: Pain Is patient prescribed a controlled substance at d/c from ED?: No Referrals: Edmar Holder III, MD [Primary Care Provider] - 1-2 days Gianni Goldberg MD [Medical Doctor] - 1-2 days Time of Disposition: 11:49
--- NOTE | 2018-07-02 11:05 | XR ---
EXAMINATION TYPE: XR knee complete RT , 3 VIEWS DATE OF EXAM ORDERED: 07/02/2018 HISTORY: Pain. COMPARISON: None. FINDINGS: There is evidence of chondrocalcinosis. There is mild peaking of the intercondylar spines. No fracture or dislocation is seen. There is a small joint effusion. IMPRESSION: 1. NO ACUTE OSSEOUS LESION. 2. CHANGES OF OSTEOARTHRITIS.
[2018-07-02] MEDS ORDERED: ACET/COD 300 MG/30 MG STARTER PACK 6 TAB BTL PO STA (11:57)
[2018-07-02 12:19] VITALS: BP 110/73; PULSE 83; RESP 16; TEMP 98.1
== END 2018-07-02 12:38 | disposition home or self-care (01) ==
LOC: EC 09:56
DX: M71.21 Synovial cyst of popliteal space [Baker], right knee (principal); M17.11 Unilateral primary osteoarthritis, right knee; Z87.891 Personal history of nicotine dependence; Z88.2 Allergy status to sulfonamides; Z79.899 Other long term (current) drug therapy; I10 Essential (primary) hypertension; I25.2 Old myocardial infarction; Z85.528 Personal history of other malignant neoplasm of kidney; Z86.010 Personal history of colon polyps; Z98.890 Other specified postprocedural states; Z95.818 Presence of other cardiac implants and grafts; Z90.5 Acquired absence of kidney
CPT/HCPCS: 73562; 99284; 96372; J1885

== ENCOUNTER → 2018-07-04 | Outpatient (CLI) | payer OTHER ==
[2018-07-04 11:22] LABS: Basophils % (A) 1 %; Eosinophils # (A) 0.1 k/uL (0-0.7); Eosinophils % (A) 2 %; HCT 36.3 % (34.0-46.0); HGB 11.6 gm/dL (11.4-16.0); Lymphocytes # (A) 1.3 k/uL (1.0-4.8); Lymphocytes % (A) 19 %; MCH 28.7 pg (25.0-35.0); MCHC 31.9 g/dL (31.0-37.0); MCV 89.7 fL (80.0-100.0); Mean Platelet Volume 6.7; Monocytes # (A) 0.4 k/uL (0-1.0); Monocytes % (A) 6 %; Neutrophils # (A) 4.5 k/uL (1.3-7.7); Neutrophils % (A) 69 %; Platelet Count 395 k/uL (150-450); RBC 4.05 m/uL (3.80-5.40); RDW 13.3 % (11.5-15.5); WBC 6.5 k/uL (3.8-10.6)
[2018-07-04 12:28] LABS: Appearance,BF Cloudy; Nucleated Cells, Body Fluid 9700 /uL; RBC, Body Fluid 700 /uL
[2018-07-04 12:29] LABS: Mononuclear WBC,Body Fluid 13 %; Polynuclear WBC,Body Fluid 87 %; Total Cells Counted,Body Fluid 100
[2018-07-04 12:32] LABS: Erythrocyte Sedimentation Rate 84 mm/hr (0-20)
[2018-07-04 16:42] LABS: C Reactive Protein 7.8 mg/dL (0.0-0.8); Uric Acid 5.4 mg/dL (2.9-7.7)
== END ==
LOC: LABWHC1 10:26
PROVIDERS: ATTEND Orthopaedic Surgery
DX: M25.561 Pain in right knee (principal); M71.21 Synovial cyst of popliteal space [Baker], right knee
CPT/HCPCS: 36415; 84550; 85025; 85652; 86140; 87070; 87075; 87205; 89050; 89060

== ENCOUNTER → 2018-09-26 | Outpatient (CLI) | payer OTHER ==
--- NOTE | 2018-09-26 17:31 | MR ---
EXAMINATION TYPE: MR pancreas wo/w con DATE OF EXAM: 09/26/2018 COMPARISON: CT abdomen August 30, 2018 and older CTs. Prior MRI liver August 11, 2017. HISTORY: abnormal CT, history of left nephrectomy 2017, history of renal CA 2017 CONTRAST: Standard multiplanar, multisequence MRI departmental protocol utilizing 8.5 mL intravenous Gadavist g adolinium contrast. FINDINGS: Pancreas: Pancreas remains normal in size, the duct is visualized but is within normal limits T2 ramu nal weighted images show tortuous course to the pancreatic duct but ending near common bile duct atte nding near duodenal ampulla. Postcontrast images show homogeneous enhancement without evidence of leonel picious area of nonenhancement to suggest underlying mass or fluid collection. There is no significan t change from prior MRI. No pancreatic head neoplasm is identified. Other: Lung bases are clear. There is a 1.1 cm hemangioma posterior segment right hepatic lobe as the re is progressive centripetal filling. There is a second larger 1.6 cm hemangioma also redemonstrated . There is third smaller lesion immediately posterior segment right hepatic lobe consistent with 1.0 cm hemangioma image 446 series 801. The spleen and right adrenal gland are normal in size. Left kidne y is surgically absent. A few simple appearing cysts medially lower pole of the right kidney are rede monstrated. No suspicious bowel dilatation. No abdominal ascites. Debris filled stomach. No greater t woods 1 cm adenopathy. Dextroconvex scoliosis in the lumbar spine is redemonstrated centered near L2 le mesfin, there is artifact from surgical hardware neuro lumbosacral junction redemonstrated. IMPRESSION: Stable appearance of pancreas no suspicious pancreatic head mass noted. Stable hemangioma s in the liver.
== END | disposition home or self-care (01) ==
LOC: RADMRIMAIN 14:12
PROVIDERS: ATTEND Urology
DX: D18.03 Hemangioma of intra-abdominal structures (principal)
CPT/HCPCS: 74183; A9585

== ENCOUNTER 2018-09-30 12:23 | Inpatient (IN) | payer OTHER ==
[~2018-09-30 12:23] MED LIST: HEPARIN SODIUM 1,000 UN/ML (10ML VL) IV ONE
[2018-09-30] MEDS ORDERED: ASPIRIN 81 MG PO STA (12:52)
[2018-09-30] MEDS ORDERED: NITROGLYCERIN SL TABS 0.4 MG TAB SUBLINGUAL STA ×3 (12:52)
[2018-09-30] MEDS ORDERED: ONDANSETRON 4 MG/2 ML VIAL IVP STA ×3 (12:52→19:26)
[2018-09-30] MEDS ORDERED: LORazepam 2 MG/ML INJ IV STA ×2 (12:53→15:01)
--- NOTE | 2018-09-30 12:55 | ED ---
General Adult HPI - General Chief complaint: Chest Pain Stated complaint: Chest pain, SOB,vomiting Time Seen by Provider: 09/30/18 12:34 Source: patient, RN notes reviewed Mode of arrival: ambulatory Limitations: no limitations - History of Present Illness Initial comments: Patient is a pleasant 63-year-old female presenting to the emergency Department with chest pain and dyspnea. Onset of symptoms was this morning when she woke. Patient admits to feeling anxious. Patient admits to having problems with anxiety previously. Patient does have history of previous heart attack however is unclear if chest discomfort feels similar to that or not. Patient does have associated dyspnea. Patient has nausea and has been dry heaving. No sweating. - Related Data Home Medications Medication Instructions Recorded Confirmed Metoprolol Succinate (ER) [Toprol 25 mg PO DAILY 02/17/17 09/30/18 XL] ALPRAZolam [Xanax] 0.5 mg PO TID PRN 07/08/17 09/30/18 Citalopram Hydrobromide [CeleXA] 40 mg PO DAILY 07/08/17 09/30/18 Ergocalciferol (Vitamin D2) 50,000 unit PO QMONTH 05/25/18 09/30/18 [Drisdol] Mirabegron [Myrbetriq] 25 mg PO DAILY 05/25/18 09/30/18 Ondansetron Odt [Zofran ODT] 4 mg PO Q8HR PRN 05/25/18 09/30/18 Levothyroxine Sodium [Synthroid] 125 mcg PO DAILY 09/30/18 09/30/18 Multivitamins, Thera [Multivitamin 1 tab PO DAILY 09/30/18 09/30/18 (formulary)] Allergies Allergy/AdvReac Type Severity Reaction Status Date / Time Sulfa (Sulfonamide Allergy Rash/Hives Verified 09/30/18 13:14 Antibiotics) atorvastatin [From Lipitor] AdvReac MUSCLE PAIN Verified 09/30/18 13:14 Review of Systems ROS Statement: Those systems with pertinent positive or pertinent negative responses have been documented in the HPI. ROS Other: All systems not noted in ROS Statement are negative. Constitutional: Denies: fever Eyes: Denies: eye pain ENT: Denies: ear pain Respiratory: Reports: dyspnea. Denies: cough Cardiovascular: Reports: chest pain Endocrine: Denies: fatigue Gastrointestinal: Reports: nausea, vomiting. Denies: abdominal pain Genitourinary: Denies: dysuria Musculoskeletal: Denies: back pain Skin: Denies: rash Neurological: Denies: weakness Past Medical History Past Medical History: Cancer, Chest Pain / Angina, GERD/Reflux, Hypertension, Myocardial Infarction ([place]), Pneumonia, Thyroid Disorder Additional Past Medical History / Comment(s): Recent upper respiratory infection, "2012 electrical heart attack", PUD, hypothyroid, low back pain, past migraines, lt foot fx with surgery, rib fx, diverticulosis dx/benign polyp.stress test 02-17-17, lt kidney ca(sx) Last Myocardial Infarction Date:: 2012 History of Any Multi-Drug Resistant Organisms: None Reported Past Surgical History: Back Surgery, Heart Catheterization, Orthopedic Surgery, Tonsillectomy, Tubal Ligation Additional Past Surgical History / Comment(s): 2012 cardiac cath-normal, 01/11/17 colonoscopy/benign polypectomy, ORIF LT FT, back x2, "lt NEPHRECTOMY d/t cancer 2 weeks ago" Past Anesthesia/Blood Transfusion Reactions: No Reported Reaction Additional Past Anesthesia/Blood Transfusion Reaction / Comment(s): no hx blood transfusion Past Psychological History: No Psychological Hx Reported Smoking Status: Former smoker Past Alcohol Use History: None Reported Past Drug Use History: None Reported - Past Family History Mother Family Medical History: No Reported History Additional Family Medical History / Comment(s): Mother was healthy and lived to be 92 yrs. old. Father History Unknown: Yes Family Medical History: No Reported History General Exam Limitations: no limitations General appearance: alert, in no apparent distress, anxious Head exam: Present: atraumatic Eye exam: Present: normal appearance, PERRL ENT exam: Present: normal oropharynx Neck exam: Present: normal inspection Respiratory exam: Present: normal lung sounds bilaterally. Absent: chest wall tenderness Cardiovascular Exam: Present: tachycardia Expanded Peripheral pulses: 2+: Radial (R), Radial (L), Dorsalis Pedis (R), Dorsalis Pedis (L) GI/Abdominal exam: Present: soft. Absent: distended, tenderness Extremities exam: Present: normal inspection. Absent: pedal edema, calf tenderness Back exam: Present: normal inspection Neurological exam: Present: alert Psychiatric exam: Present: anxious Skin exam: Present: normal color. Absent: rash Course Vital Signs 09/30/18 09/30/18 09/30/18 12:28 13:16 13:22 Temperature 97.4 F L Pulse Rate 112 H Respiratory 30 H Rate Blood Pressure 184/113 180/103 164/100 O2 Sat by Pulse 100 Oximetry - Reevaluation(s) Reevaluation #1: 09/30/18 16:19 Patient reevaluated and updated. Discomfort has gone from 8/10 to now 4/10 following nitroglycerin sublingual. Patient still has some nausea. Case was discussed in detail with Dr. Salgado, who will consult. 09/30/18 16:23 Dr. Valenzuela has been paged covering for Dr. Holder for admission. EKG Findings - EKG Comments: EKG Findings:: Sinus tachycardia 105. MT 168. QRS 82. QT 364. QTC 41. Normal axis. Normal QRS. Nonspecific ST-T. Medical Decision Making - Lab Data Result diagrams: 09/30/18 13:10 09/30/18 14:54 Lab Results 09/30/18 09/30/18 09/30/18 Range/Units 13:10 13:10 13:10 WBC 14.5 H (3.8-10.6) k/uL RBC 4.60 (3.80-5.40) m/uL Hgb 13.0 (11.4-16.0) gm/dL Hct 39.8 (34.0-46.0) % MCV 86.4 (80.0-100.0) fL MCH 28.3 (25.0-35.0) pg MCHC 32.7 (31.0-37.0) g/dL RDW 14.1 (11.5-15.5) % Plt Count 376 (150-450) k/uL Neutrophils % 89 % Lymphocytes % 6 % Monocytes % 3 % Eosinophils % 1 % Basophils % 0 % Neutrophils # 12.9 H (1.3-7.7) k/uL Lymphocytes # 0.9 L (1.0-4.8) k/uL Monocytes # 0.5 (0-1.0) k/uL Eosinophils # 0.1 (0-0.7) k/uL Basophils # 0.0 (0-0.2) k/uL PT 10.7 (9.0-12.0) sec INR 1.0 (<1.2) APTT 21.5 L (22.0-30.0) sec D-Dimer 1.44 H (<0.60) mg/L FEU Sodium (137-145) mmol/L Potassium (3.5-5.1) mmol/L Chloride (98-107) mmol/L Carbon Dioxide (22-30) mmol/L Anion Gap mmol/L BUN (7-17) mg/dL Creatinine (0.52-1.04) mg/dL Est GFR (CKD-EPI)AfAm (>60 ml/min/1.73 sqM) Est GFR (CKD-EPI)NonAf (>60 ml/min/1.73 sqM) Glucose (74-99) mg/dL Calcium (8.4-10.2) mg/dL Magnesium (1.6-2.3) mg/dL Total Bilirubin (0.2-1.3) mg/dL AST (14-36) U/L ALT (9-52) U/L Alkaline Phosphatase (38-126) U/L Troponin I (0.000-0.034) ng/mL NT-Pro-B Natriuret Pep 438 pg/mL Total Protein (6.3-8.2) g/dL Albumin (3.5-5.0) g/dL Amylase (30-110) U/L Lipase (23-300) U/L 09/30/18 09/30/18 Range/Units 14:54 14:54 WBC (3.8-10.6) k/uL RBC (3.80-5.40) m/uL Hgb (11.4-16.0) gm/dL Hct (34.0-46.0) % MCV (80.0-100.0) fL MCH (25.0-35.0) pg MCHC (31.0-37.0) g/dL RDW (11.5-15.5) % Plt Count (150-450) k/uL Neutrophils % % Lymphocytes % % Monocytes % % Eosinophils % % Basophils % % Neutrophils # (1.3-7.7) k/uL Lymphocytes # (1.0-4.8) k/uL Monocytes # (0-1.0) k/uL Eosinophils # (0-0.7) k/uL Basophils # (0-0.2) k/uL PT (9.0-12.0) sec INR (<1.2) APTT (22.0-30.0) sec D-Dimer (<0.60) mg/L FEU Sodium 140 (137-145) mmol/L Potassium 3.9 (3.5-5.1) mmol/L Chloride 111 H (98-107) mmol/L Carbon Dioxide 19 L (22-30) mmol/L Anion Gap 10 mmol/L BUN 17 (7-17) mg/dL Creatinine 1.07 H (0.52-1.04) mg/dL Est GFR (CKD-EPI)AfAm 65 (>60 ml/min/1.73 sqM) Est GFR (CKD-EPI)NonAf 56 (>60 ml/min/1.73 sqM) Glucose 168 H (74-99) mg/dL Calcium 10.0 (8.4-10.2) mg/dL Magnesium 1.6 (1.6-2.3) mg/dL Total Bilirubin 0.6 (0.2-1.3) mg/dL AST 30 (14-36) U/L ALT 19 (9-52) U/L Alkaline Phosphatase 81 (38-126) U/L Troponin I 0.244 H* (0.000-0.034) ng/mL NT-Pro-B Natriuret Pep pg/mL Total Protein 8.2 (6.3-8.2) g/dL Albumin 4.4 (3.5-5.0) g/dL Amylase 126 H (30-110) U/L Lipase 52 (23-300) U/L - Radiology Data Radiology results: report reviewed (Computed tomography scan of the chest shows no evidence of pulmonary embolism. Lesions in the liver. Coronary calcifications.), image reviewed (Chest x-ray reveals no acute process) Critical Care Time Critical Care Time: Yes Total Critical Care Time: 34 Disposition Clinical Impression: NSTEMI (non-ST elevated myocardial infarction) Disposition: ADMITTED IP TO THIS HOSP Condition: Serious Is patient prescribed a controlled substance at d/c from ED?: No Referrals: Edmar Holder III, MD [Primary Care Provider] - 1-2 days Decision Time: 16:21
[2018-09-30 13:46] LABS: Basophils % (A) 0 %; Eosinophils # (A) 0.1 k/uL (0-0.7); Eosinophils % (A) 1 %; HCT 39.8 % (34.0-46.0); Lymphocytes # (A) 0.9 k/uL (1.0-4.8); Lymphocytes % (A) 6 %; MCH 28.3 pg (25.0-35.0); MCHC 32.7 g/dL (31.0-37.0); MCV 86.4 fL (80.0-100.0); Monocytes # (A) 0.5 k/uL (0-1.0); Monocytes % (A) 3 %; Neutrophils # (A) 12.9 k/uL (1.3-7.7); Neutrophils % (A) 89 %; Platelet Count 376 k/uL (150-450); RDW 14.1 % (11.5-15.5); WBC 14.5 k/uL (3.8-10.6)
[2018-09-30 14:09] LABS: Prothrombin Time 10.7 sec (9.0-12.0)
[2018-09-30 14:12] LABS: D-Dimer 1.44 mg/L FEU (<0.60); Partial Thromboplastin Time 21.5 sec (22.0-30.0)
--- NOTE | 2018-09-30 14:19 | XR ---
EXAMINATION TYPE: XR chest 2V DATE OF EXAM: 09/30/2018 COMPARISON: 10/29/2017 HISTORY: Chest pain TECHNIQUE: Frontal and lateral views of the chest are obtained. FINDINGS: There is no focal air space opacity, pleural effusion, or pneumothorax seen. The cardiac silhouette size is within normal limits. The osseous structures are intact. Minimal multilevel dege nerative changes of the thoracic spine. IMPRESSION: No acute cardiopulmonary process.
[2018-09-30 15:09] LABS: Albumin 4.4 g/dL (3.5-5.0); Magnesium 1.6 mg/dL (1.6-2.3); Total Bilirubin 0.6 mg/dL (0.2-1.3); Total Protein 8.2 g/dL (6.3-8.2)
[2018-09-30 15:14] LABS: Potassium 3.9 mmol/L (3.5-5.1)
--- NOTE | 2018-09-30 16:07 | CT ---
EXAMINATION TYPE: CT angio chest DATE OF EXAM: 09/30/2018 COMPARISON: NONE HISTORY: Chest pain, nausea and vomiting. CT DLP: 366.1 mGycm. Automated Exposure Control for Dose Reduction was Utilized. CONTRAST: CTA scan of the thorax is performed with IV Contrast, patient injected with 67 mL of Isovue 370, pulm onary embolism protocol. MIP Images are created on CT scanner and reviewed. FINDINGS: LUNGS: Mild emphysematous changes are seen with scattered blebs. Subsegmental dependent atelectasis i s noted throughout the lungs. The lungs are grossly clear, there is no concerning parenchymal mass or nodule identified. There is no pleural effusion or pneumothorax seen. The tracheobronchial tree i s patent. MEDIASTINUM: There is satisfactory enhancement of the pulmonary artery and its branches, there is no CT evidence for pulmonary embolism. Mildly enlarged mediastinal lymph nodes measure 1.0 cm at the rig ht hilum and 1.2 cm in the precarinal space unchanged from the prior.. Heart is upper limits of bridget l size without pericardial effusion. Minimal coronary artery calcifications are seen within the left anterior descending coronary artery. OTHER: The left kidney is surgically absent. Left adrenal gland displays mild homogeneous thickening most compatible with benign adrenal gland hyperplasia. Small splenules are noted. Hypervascular focus in segment 7 is seen on image 107. There are at least 3 hypoattenuated lesions on image 115, 126, an d 109 within the hepatic parenchyma that are ill-defined given the angiographic phase of contrast. Sm all hiatal hernia is incidentally noted. Old fracture deformity of the lateral margin of rib 9 on the left as well as at 8 are seen. Sclerosis is seen of L2, concerning for osseous metastasis. However this does appear stable from 08/05/2017 and alternatively could relate to degenerative change. IMPRESSION: 1. No evidence of pulmonary embolus. 2. 3 new hypoattenuated hepatic lesions in comparison the prior of 08/05/2017 that is post left nephre ctomy. Full evaluation for metastasis is recommended with dynamic contrast enhanced MR liver. 2. Moderate hiatal hernia. 3. Subsegmental atelectasis and mild emphysema. 4. Mild coronary calcifications within the left anterior descending coronary artery, marker of pina ry artery disease.
[2018-09-30] MEDS ORDERED: HEPARIN SODIUM,PORCINE 5,000 UNIT/ML 1 ML VIAL IV ONE (16:18)
[2018-09-30] MEDS ORDERED: HEPARIN SODIUM,PORCINE 5,000 UNIT/ML 1 ML VIAL IV PRN (16:18)
[2018-09-30] MEDS ORDERED: NITROGLYCERIN-D5W PMX 50 MG in DEXTROSE/WATER 1 250ML.BAG IV ONE ×2 (16:19→17:21)
[2018-09-30] MEDS ORDERED: HEPARIN SOD,PORK IN 0.45% NACL 25,000 UNIT in 0.45% NACL 1 250ML.BAG IV SCH (16:30)
[2018-09-30] MEDS ORDERED: ONDANSETRON ODT 4 MG TAB PO PRN (16:57)
[2018-09-30 17:57] VITALS: BMI 29.6
[2018-09-30] MEDS: PANTOPRAZOLE 40 MG/10 ML VIAL IVP SCH (19:40)
[2018-09-30] MEDS: HYDROmorphone 0.5 MG/0.5 ML SYRINGE IVP PRN (19:40)
[2018-09-30 21:12] LABS: Glucose,Whole Blood 155 mg/dL (75-99)
[2018-09-30] MEDS ORDERED: IV FLUID CONTINUATION 1,000 ML IV ONE (21:31)
[2018-09-30] MEDS ORDERED: METOPROLOL TARTRATE 5 MG/5 ML VIAL IVP ONE ×3 (21:44→22:08)
[2018-09-30] MEDS ORDERED: LIDOCAINE 1% INJ 10MG/ML (20 ML MDV) ONE (21:45)
[2018-09-30] MEDS: METOPROLOL TARTRATE 5 MG/5 ML VIAL IVP ONE ×3 (21:47→22:58)
[2018-09-30] MEDS ORDERED: NITROGLYCERIN SL TABS 0.4 MG TAB SUBLINGUAL ONE ×2 (21:48→21:50)
[2018-09-30] MEDS: MIDAZOLAM (PF) 2 MG/2 ML VIAL IV ONE ×4 (21:49→22:53)
[2018-09-30] MEDS ORDERED: LIDOCAINE 1% INJ 10MG/ML (20 ML MDV) SQ ONE (21:50)
[2018-09-30] MEDS ORDERED: HYDROmorphone 1 MG/ML 1 ML SYRINGE ONE (22:01)
[2018-09-30] MEDS ORDERED: HYDROmorphone 1 MG/ML 1 ML SYRINGE IVP ONE (22:03)
[2018-09-30] MEDS ORDERED: METOPROLOL TARTRATE 25 MG TAB PO STA (22:25)
[2018-09-30] MEDS ORDERED: HEPARIN SODIUM 1,000 UN/ML (10ML VL) ONE (22:35)
[2018-09-30] MEDS ORDERED: NITROGLYCERIN 1000MCG/10ML SYRINGE INTRACORON ONE (22:43)
[2018-09-30] MEDS ORDERED: ADENOSINE 90 MG in SODIUM CHLORIDE 0.9% 60 ML IVP ONE (22:45)
[2018-09-30] MEDS ORDERED: IOPAMIDOL-370 100ML BTL INJ ONE (22:48)
[2018-09-30] MEDS ORDERED: NITROGLYCERIN 1000MCG/10ML SYRINGE INTRAARTER ONE ×2 (22:52)
--- NOTE | 2018-09-30 22:54 | HP ---
HISTORY AND PHYSICAL CHIEF COMPLAINTS: Chest pain, shortness of breath and vomiting. HISTORY OF PRESENT ILLNESS: This 63-year-old woman with a past medical history of multiple medical problems including history of GERD, hypertension, history of myocardial infarction, history of low back pain, DJD, history of cardiac disease, being followed by Dr. Holder in the outpatient setting, had a recent upper respiratory infection. Apparently, the patient is complaining of chest pain and epigastric pain which is heavy pressure type of pain, moderate to severe in intensity without any radiation. The patient also had some shortness of breath and nausea and vomiting. The patient came to [facility] Emergency Room and was admitted for further evaluation and treatment. The evaluation in the emergency room showed elevated WBC 14.5, D-dimer is 1.44 and glucose 168. Creatinine is 1.07. Troponin is elevated at 0.244. Amylase is 126. The patient also had a CTA of the chest which was personally reviewed by me and showed evidence of pulmonary embolism and three new hypoattenuating hepatic lesions were noted with moderate hiatal hernia and atelectasis and other findings. The EKG which was reviewed revealed sinus tachycardia with diffuse ST-T changes. The patient was admitted for further evaluation and treatment. There is no history of fever, rigors or chills. No history of any headache, loss of consciousness, seizures at this time. PAST MEDICAL HISTORY: History of chest pain, history of myocardial infarction, pneumonia, history of hypothyroidism, history of diverticulitis, back surgery, degenerative joint disease. MEDICATIONS: Prior to admission include home medications are: 1. Multivitamins 1 p.o. daily. 2. Synthroid 125 mcg p.o. daily. 3. Xanax 0.5 p.o. t.i.d. p.r.n. 4. Zofran 4 mg q.8 p.r.n. 5. Myrbetriq 25 mg p.o. daily. 6. Toprol-XL 25 mg p.o. daily. 7. Drisdol 81995 p.o. Q monthly. 8. Celexa 40 mg p.o. daily. ALLERGIES: SULFA AND LIPITOR. FAMILY HISTORY, SOCIAL HISTORY, REVIEW OF SYSTEMS: No history of heart disease or strokes in the family. SOCIAL HISTORY: Previous history of smoking. No history of current smoking or alcohol intake. REVIEW OF SYSTEMS: ENT: As mentioned earlier. CARDIOVASCULAR as mentioned earlier. RESPIRATION: As mentioned earlier. GASTROINTESTINAL: As mentioned earlier. : No dysuria or hematuria. NERVOUS SYSTEM: Numbness and weakness. ALLERGY/IMMUNOLOGY: No history of asthma and hayfever. MUSCULOSKELETAL: As mentioned earlier. HEMATOLOGY/ONCOLOGY: No history of anemia. ENDOCRINE: Hypothyroidism. CONSTITUTIONAL: As mentioned earlier. DERMATOLOGY: Negative. RHEUMATOLOGY negative. PSYCHIATRY as mentioned earlier. PHYSICAL EXAMINATION: Alert and oriented times three. Pulse is 115, blood pressure 160/87, respiration 20, temperature 99.4, pulse ox 98% on room air. HEENT are conjunctivae normal. Oral mucosa moist. NECK is no jugular venous distention. No carotid bruit. No lymph node enlargement. Cardiovascular system: S1, S2 muffled. RESPIRATORY: Breath sounds diminished in the bases. A few scattered rhonchi. No crackles. ABDOMEN: Soft. Mild diffuse discomfort in the epigastrium. Otherwise no guarding, no rigidity. No mass palpable. No ascites. Bowel sounds present. LEGS: No edema. No swelling. NERVOUS SYSTEM: Higher functions as mentioned earlier. Moves all 4 limbs. No focal motor or sensory deficits. LYMPHATICS: No lymph nodes palpable in the neck, axillae or groin. SKIN: No ulcers, rashes or bleeding. JOINTS: No active deforming arthropathy. LAB: At this time shows WBC 14.2, hemoglobin 13, and INR is 1. D-dimer is 1.44. Sodium 140, potassium 3.9, CO2 is 19, creatinine is 1.07, glucose 168. Troponin 0.244 and 1.280. ASSESSMENT: 1. Chest pain, possible acute non ST-segment elevation myocardial infarction. 2. Troponin 1.280. 3. Increased WBC. 4. History of recent upper respiratory infection. 5. History of gastroesophageal reflux disease. 6. Hypertension. 7. History of pneumonia. 8. History of hypothyroidism. 9. History of degenerative joint disease, low back pain. 10.History of left kidney cancer. 11.History of nicotine dependence. RECOMMENDATIONS AND DISCUSSION: In this 63-year-old woman who presented with multiple medical issues, at this time, I would recommend to continue the current medications, management and symptomatic treatment. The patient has been started on IV heparin, nitroglycerin drip. We will follow the patient closely with Cardiology. Repeat EKG has been recommended. Continue with unstable angina protocol. Antiplatelet agents. I would also recommend proton pump inhibitors. Symptomatic treatment for the vomiting also. The prognosis is extremely guarded because of multiple complex medical issues. We will closely follow with Cardiology. Further recommendations to follow. A copy of this dictation being forwarded to Dr. Holder who is the primary physician. MMODL / IJN: [id number] /
[2018-09-30] MEDS ORDERED: METOPROLOL TARTRATE 50 MG TAB PO ONE (22:58)
[2018-09-30] MEDS ORDERED: FUROSEMIDE 10 MG/ML 4 ML VIAL ONE (23:01)
[2018-09-30] MEDS ORDERED: FUROSEMIDE 10 MG/ML 4 ML VIAL IV ONE (23:02)
[2018-09-30] MEDS ORDERED: CLEVIDIPINE BUTYRATE 25 MG in EMPTY BAG 1 BAG IV SCH (23:30)
[2018-09-30 23:32] LABS: Glucose,Whole Blood 153 mg/dL (75-99)
--- NOTE | 2018-09-30 23:51 | CONS ---
CONSULTATION This is a 63-year-old lady with a history of hypertension, hypothyroidism, underlying depression, who also has a history of renal cell cancer status post left nephrectomy comes into the hospital with episode of chest pain. She was seen in the emergency room by the admitting doctor, Dr. Valenzuela and hospitalized. Initial troponin was mildly elevated at 0.244. The patient was placed on a heparin drip and had chest pain and nitroglycerin drip was added and the subsequent troponin went up to 1.2. I was called regarding ongoing chest pain in spite of heparin and nitroglycerin drip and I recommended an EKG, which revealed a significant ST-segment depression in leads V2, V3 to V6 suggestive of posterior wall ischemia. The patient also had some sinus tachycardia. Her D-dimer was up to 1.[address] angiography did not reveal any pulmonary embolism. Her proBNP was 438. I came in to see the patient with chest pain and explained to her that we will perform coronary angiography with the understanding that she is having a non-ST elevation [place] with probable significant underlying CAD. Based on the EKG, I suspected circumflex disease. The patient had a cardiac cath in 2012 which did not reveal any significant obstructive CAD and she had a negative dobutamine echo in 2017. Prompt cardiac catheterization was advised. There was no family members to speak to, but we were able to communicate with the . The nurse spoke to the and explained to him the details. Patient is was fully aware of details of cardiac cath and wished to proceed with the procedure. PAST MEDICAL HISTORY: 1. History of renal cell cancer status post left nephrectomy performed apparently in February 2017, possibly or early 2018. Patient is unsure. 2. History of anxiety. 3. Gastroesophageal reflux disease. 4. Hypertension. 5. History of hypothyroidism. MEDICATIONS: At home include Zofran, Synthroid, Xanax, Celexa, metoprolol succinate 25 mg daily, and also some multivitamins. ALLERGIES: IS A QUESTIONABLE ALLERGY TO ATORVASTATIN. SHE IS ALSO ALLERGIC TO SULFA. EKG revealed sinus tachycardia with precordial ST depression in leads V3 to V6 suggestive of posterior wall ischemia. PHYSICAL EXAMINATION: On examination, blood pressure was 170/96, pulse rate is about 108 per minute. HEENT unremarkable. Fundus was not examined by me. There is JVD of 1 cm. No carotid bruit. Heart exam reveals S1, S2 heard normally. There is a soft systolic murmur at left lower sternal border. Lungs reveal bilateral diminished air entry. Abdomen is soft. Lower extremities reveal palpable pulses. No edema. Central nervous system is normal. IMPRESSION: 1. Acute non ST elevation myocardial infarction. 2. Hypertension. 3. History of left nephrectomy for cancer. 4. History of anxiety. 5. Unremarkable cardiac cath in 2013. RECOMMENDATIONS: I recommend urgent cardiac cath and based on findings, intervention. The patient understands the risks, benefits, options, rationale and wishes to proceed. MMODL / IJN: [id number] /
--- NOTE | 2018-09-30 23:56 | CC ---
CARDIAC CATHETERIZATION REPORT DATE OF SERVICE: 09/30/2018 PROCEDURE: 1. Left heart catheterization and coronary angiography. 2. Fractional flow reserve assessment of the circumflex coronary artery. PERFORMED BY: Dr. Mela Santa. SEDATION: Moderate conscious sedation time was 65 minutes. CLINICAL INFORMATION: Mrs. Annamaria Humphrey is a 63-year-old lady with a history of chest pain, elevated troponin suggestive of non-ST elevation [place] with precordial ST depression. She had an elevated D- dimer and unremarkable CT angiogram for pulmonary embolism. I called the radiologist, Dr. Villanueva spoke to him and he reassured me that there was no aortic pathology. She was advised cardiac catheterization and the procedure was performed expeditiously. PROCEDURE NOTE: Under local anesthesia and strict aseptic precautions, a 6-B[place]wan[place] introducer was placed in the right femoral artery. Using a standard right standard Ronan catheters, I performed coronary angiography of the right coronary artery and a standard left Ronan for left coronary artery. A pigtail catheter was used to check LV pressures. The patient had a borderline lesion in the mid circumflex, nondominant vessel and I performed FFR using a volcano wire. The patient received about 5000 units of heparin and I performed an FFR using a volcano wire and checking the pressures. She tolerated the procedure well. The sheath was then taken out and Angio-Seal device used to secure hemostasis and she was sent to the room in a stable condition. She still had hypertension and therefore I recommended that she should go to the ICU. Left ventricular end-diastolic pressures are elevated. I suspect she may have underlying takotsubo syndrome. However, I did not recommend any LV-gram mainly because of the contrast issues and her single kidney with previous left nephrectomy. She will have an echocardiogram tomorrow morning. CARDIAC CATHETERIZATION FINDINGS: Left ventricle end-diastolic pressure was almost 30 mmHg. There was no gradient across aortic valve. CORONARY ANGIOGRAPHY FINDINGS: RIGHT CORONARY ARTERY: Superdominant vessel, moderately calcified, minor irregularities and no more than 30% to 35% narrowing distally bifurcates into a large PDA and PLV, both of which have no significant disease. The PDA has in its proximal portion about a 35% narrowing, but no significant lesions are noted. LEFT MAIN CORONARY ARTERY: Short patent vessel free of significant disease that immediately bifurcates into LAD and circumflex. LEFT ANTERIOR DESCENDING CORONARY ARTERY: Good caliber vessel extends along the anterior wall, gives off septal and diagonal branches. There is a fairly decent size septal in the midportion has about 30% to 40% narrowing. LAD has minor irregularities. No significant disease. It curves over the apex to supply the inferoapical portion of left ventricle. LEFT POSTERIOR CIRCUMFLEX CORONARY ARTERY: Technically a nondominant vessel, gives off a single obtuse marginal after 2 small AV groove branches. The circumflex marginal is tortuous, but right after the AV groove branch and another smaller branch is an eccentric 50% narrowing, which seems to be worse in HARRELL projection. However, compared to the old films from 2013, this is not a serious blockage. I considered that this was no more than 50-55 percent with an area of haziness. However, by this time, patient's chest pain improved but did not resolve and precordial ST-segment depression improved completely and normalized. She was feeling much better. She was actually hypertensive. After making sure that there was no aortic pathology, I recommended that I will perform FFR. Using a standard left Ronan guide catheter and a Enxue.como wire I advanced it and beyond the circumflex lesion and I performed IFR and FFR. The patient received 5000 units of heparin and also intracoronary nitroglycerin prior to the procedure. The patient tolerated procedure well. The catheter was taken out and Angio-Seal device used to secure hemostasis and she was sent to the room in a stable condition. FINAL IMPRESSION: This patient has no critical lesions. Moderate lesion and circumflex were unremarkable based on fractional flow reserve assessment. FFR was 0.95 and IFR was 0.98. RECOMMENDATIONS: Continued medical therapy and echocardiogram to assess if she has any underlying takotsubo syndrome. The patient has elevated end-diastolic pressures, hypertension, and possibility of takotsubo should be considered. She will be cautiously diuresed and blood pressure control will be optimized in the ICU. MMODL / IJN: [id number] /
[2018-10-01] MEDS: HYDROmorphone 0.5 MG/0.5 ML SYRINGE IVP PRN ×6 (00:02→22:22)
[2018-10-01] MEDS: ONDANSETRON 4 MG/2 ML VIAL IVP PRN ×5 (00:02→22:22)
[2018-10-01 06:02] LABS: Basophils % (A) 0 %; Eosinophils # (A) 0.1 k/uL (0-0.7); Eosinophils % (A) 1 %; HCT 34.6 % (34.0-46.0); HGB 11.1 gm/dL (11.4-16.0); Lymphocytes % (A) 8 %; MCH 27.8 pg (25.0-35.0); MCV 86.9 fL (80.0-100.0); Mean Platelet Volume 6.5; Monocytes # (A) 0.7 k/uL (0-1.0); Monocytes % (A) 5 %; Neutrophils # (A) 11.3 k/uL (1.3-7.7); Neutrophils % (A) 85 %; Platelet Count 314 k/uL (150-450); RBC 3.98 m/uL (3.80-5.40); RDW 14.3 % (11.5-15.5); WBC 13.3 k/uL (3.8-10.6)
[2018-10-01 06:09] LABS: INR 1.1 (<1.2); Prothrombin Time 11.3 sec (9.0-12.0)
--- NOTE | 2018-10-01 06:21 | XR ---
EXAMINATION TYPE: XR chest 1V DATE OF EXAM: 10/01/2018 HISTORY: SOB. REFERENCE: Previous study dated 09/30/2018. FINDINGS: There is apparent elevation right hemidiaphragm. The lungs are clear. Pleural spaces are clear. Heart size upper limits of normal. IMPRESSION: NO ACUTE INTRATHORACIC DISEASE.
[2018-10-01 06:30] LABS: Calcium 8.9 mg/dL (8.4-10.2); Potassium 3.9 mmol/L (3.5-5.1)
[2018-10-01 06:44] LABS: T4, Free (Free Thyroxine) 1.49 ng/dL (0.78-2.19)
[2018-10-01] MEDS ORDERED: NITROGLYCERIN-D5W PMX 50 MG in DEXTROSE/WATER 1 250ML.BAG IV SCH (07:15)
[2018-10-01] MEDS: MULTIVITAMINS, THERA 1 EACH TAB PO SCH (07:57)
[2018-10-01] MEDS: LEVOTHYROXINE 125 MCG TAB PO SCH (07:57)
[2018-10-01] MEDS: HEPARIN SODIUM,PORCINE 5,000 UNIT/ML 1 ML VIAL SQ SCH ×2 (07:57→23:36)
[2018-10-01] MEDS: ALPRAZolam 0.5 MG TAB PO PRN ×3 (07:57→22:23)
[2018-10-01] MEDS: PANTOPRAZOLE 40 MG/10 ML VIAL IVP SCH ×2 (07:57→22:22)
[2018-10-01] MEDS: CITALOPRAM HYDROBROMIDE 20 MG TAB PO SCH (07:57)
[2018-10-01] MEDS: METOPROLOL TARTRATE 25 MG TAB PO SCH (07:58)
[2018-10-01] MEDS ORDERED: ASPIRIN 325 MG TAB PO SCH (09:00)
[2018-10-01] MEDS ORDERED: METOPROLOL SUCCINATE (ER) 25 MG TAB.ER.24H PO SCH (09:00)
[2018-10-01] MEDS ORDERED: NON-FORMULARY DRUG (Mirabegron [Myrbetriq] 25 MG) PO SCH (09:00)
[2018-10-01] MEDS: NITROGLYCERIN OINT 1 INCH/GM PACKET TOPICAL SCH ×4 (11:15→23:00)
[2018-10-01] MEDS: amLODIPine 10 MG TAB PO SCH (11:15)
--- NOTE | 2018-10-01 11:25 | PN ---
PROGRESS NOTE FOLLOW-UP NOTE: Annamaria is a 63-year-old lady who presented to hospital with chest pain, had elevated troponin, had a CT scan that was negative for pulmonary embolism, had a cardiac catheterization and was found to have a borderline lesion in circumflex coronary artery. This morning she still has some chest discomfort. Troponin is 2, but otherwise she appears comfortable at rest. On exam, vital signs are stable. There is no jugular venous distention. Chest exam reveals good air entry bilaterally. Heart exam reveals first and second heart sounds. No gallop. Examination of extremities did not reveal any edema. Labs show a hemoglobin of 11. Potassium is 3.9. Creatinine is 1. ASSESSMENT: Acute urp-SZ-ecaucdy-elevation myocardial infarction, status post catheterization and CT scan negative for pulmonary embolism. Will treat her with Lipitor, Lopressor and aspirin. Will obtain a 2D echo to evaluate her LV function and primarily to rule out takotsubo syndrome. MMODL / IJN: [id number] /
--- NOTE | 2018-10-01 11:32 | ECHOF ---
Referral Reason:nstemi MEASUREMENTS -------- HEIGHT: 170.2 cm WEIGHT: 86.2 kg BP: 149/91 RVIDd: 2.6 cm (< 3.3) IVSd: 1.4 cm (0.6 - 1.1) LVIDd: 4.2 cm (3.9 - 5.3) LVPWd: 1.2 cm (0.6 - 1.1) IVSs: 1.6 cm LVIDs: 2.4 cm LVPWs: 1.7 cm LA Diam: 3.2 cm (2.7 - 3.8) LAESV Index (A-L): 19.98 ml/m Ao Diam: 2.9 cm (2.0 - 3.7) AV Cusp: 1.8 cm (1.5 - 2.6) MV EXCURSION: 12.451 mm (> 18.000) MV EF SLOPE: 63 mm/s (70 - 150) EPSS: 0.5 cm MV E Maksim: 0.93 m/s MV DecT: 202 ms MV A Maksim: 0.86 m/s MV E/A Ratio: 1.08 RAP: 5.00 mmHg RVSP: 43.51 mmHg FINDINGS -------- Sinus rhythm. This was a technically difficult study with suboptimal views. The left ventricular size is normal. There is moderate concentric left ventricular hypertrophy. O verall left ventricular systolic function is normal with, an EF between 60 - 65 %. The right ventricle is normal in size. Normal LA size by volume 22+/-6 ml/m2. The right atrium is normal in size. 5.0mg of Lumason was utilized for enhancement of images There is mild aortic valve sclerosis. Moderate mitral regurgitation is present. Mild tricuspid regurgitation present. There is mild pulmonary hypertension. The right ventricular systolic pressure, as measured by Doppler, is 43.51mmHg. The pulmonic valve was not well visualized. The aortic root size is normal. IVC Not well visulized. There is no pericardial effusion. CONCLUSIONS -------- 1. Sinus rhythm. 2. This was a technically difficult study with suboptimal views. 3. The left ventricular size is normal. 4. There is moderate concentric left ventricular hypertrophy. 5. Overall left ventricular systolic function is normal with, an EF between 60 - 65 %. 6. The right ventricle is normal in size. 7. Normal LA size by volume 22+/-6 ml/m2. 8. The right atrium is normal in size. 9. 5.0mg of Lumason was utilized for enhancement of images 10. There is mild aortic valve sclerosis. 11. Moderate mitral regurgitation is present. 12. Mild tricuspid regurgitation present. 13. There is mild pulmonary hypertension. 14. The right ventricular systolic pressure, as measured by Doppler, is 43.51mmHg. 15. The pulmonic valve was not well visualized. 16. The aortic root size is normal. 17. IVC Not well visulized. 18. There is no pericardial effusion. COST ENGINEER: Alexus Piña RDCS
[2018-10-01] MEDS: Mirabegron [Myrbetriq] 25 MG PO SCH (16:29)
--- NOTE | 2018-10-01 19:52 | PN ---
PROGRESS NOTE DATE OF SERVICE: 10/01/2018 This 63-year-old woman who was admitted with chest pain had features of non-ST segment elevation myocardial infarction. A cardiac catheterization was done by Cardiology emergently last night, which showed moderate lesions in the circumflex, which was unremarkable based on the fractional flow reserve assessment. The patient has recommended medical treatment. The patient being closely monitored in ICU at this time. A 2D echo with Doppler was also recommended by Cardiology, which showed ejection fraction 60-65 percent with moderate mitral regurgitation and mild tricuspid regurgitation. No chest pain. No palpitations. No fever. The patient also had some anxiety also. A chest x-ray done today this morning showed no acute abnormality. PHYSICAL EXAM: Alert and oriented x3. Pulse is 96. Blood pressure is 147/90, respiration 13, temperature 98 degrees, pulse ox 98% on room air. HEENT: Conjunctivae normal. NECK: No JVD. CARDIOVASCULAR: S1, S2 muffled. RESPIRATORY: Breath sounds diminished in the bases. A few scattered rhonchi and crackles. ABDOMEN is soft, nontender. No mass palpable. LEGS: No edema. No swelling. NERVOUS SYSTEM: No focal deficits. LABS: WBC 13.3, hemoglobin 11.1 sodium 137, potassium 3.9, and troponins 2.0440. ASSESSMENT: 1. Chest pain acute non ST-segment myocardial infarction status post cardiac catheterization with moderate lesions of the circumflex, unremarkable based on the fractional flow reserve assessment. 2. Troponin elevated up to 2.040. 3. Increased WBC. 4. History of recent upper respiratory infection. 5. History of gastroesophageal reflux disease. 6. Hypertension. 7. History of pneumonia. 8. History of hypothyroidism. 9. History of degenerative joint disease. 10.Low back pain. 11.History of left kidney cancer. 12.History of nicotine dependence. RECOMMENDATIONS AND DISCUSSION: Recommend to continue current medications, management and symptomatic treatment. Otherwise, at this time I recommend continue with antiplatelet agents. Symptomatic treatment. Follow closely with Cardiology. Repeat labs will be ordered. Prognosis guarded because of multiple complex medical issues. Further recommendations to follow. MMODL / IJN: [id number] /
[2018-10-01] MEDS ORDERED: HEPARIN SODIUM,PORCINE 5,000 UNIT/ML 1 ML VIAL IV PRN (21:47)
[2018-10-01] MEDS ORDERED: HEPARIN SODIUM,PORCINE 5,000 UNIT/ML 1 ML VIAL IV ONE (21:47)
[2018-10-01] MEDS: HEPARIN SOD,PORK IN 0.45% NACL 25,000 UNIT in 0.45% NACL 1 250ML.BAG IV SCH (22:24)
[2018-10-01] MEDS: ATORVASTATIN 20 MG TAB PO SCH (22:28)
[2018-10-01] MEDS ORDERED: METOPROLOL SUCCINATE (ER) 25 MG TAB.ER.24H PO STA (22:50)
[2018-10-02] MEDS: ONDANSETRON 4 MG/2 ML VIAL IVP PRN ×2 (05:01→17:20)
[2018-10-02] MEDS: LEVOTHYROXINE 125 MCG TAB PO SCH ×2 (05:30→07:30)
[2018-10-02 05:37] LABS: INR 1.1 (<1.2); Partial Thromboplastin Time 40.7 sec (22.0-30.0); Prothrombin Time 11.2 sec (9.0-12.0)
[2018-10-02 05:45] LABS: Calcium 9.4 mg/dL (8.4-10.2); Potassium 3.4 mmol/L (3.5-5.1)
[2018-10-02 05:47] LABS: Basophils % (A) 0 %; Eosinophils # (A) 0.1 k/uL (0-0.7); Eosinophils % (A) 0 %; HCT 39.5 % (34.0-46.0); HGB 12.7 gm/dL (11.4-16.0); Lymphocytes # (A) 1.4 k/uL (1.0-4.8); Lymphocytes % (A) 12 %; MCH 28.9 pg (25.0-35.0); MCHC 32.2 g/dL (31.0-37.0); MCV 89.7 fL (80.0-100.0); Mean Platelet Volume 7.1; Monocytes # (A) 0.8 k/uL (0-1.0); Monocytes % (A) 7 %; Neutrophils # (A) 9.3 k/uL (1.3-7.7); Neutrophils % (A) 79 %; Platelet Count 281 k/uL (150-450); RDW 14.9 % (11.5-15.5); WBC 11.7 k/uL (3.8-10.6)
[2018-10-02] MEDS: Mirabegron [Myrbetriq] 25 MG PO SCH (07:20)
[2018-10-02] MEDS: MULTIVITAMINS, THERA 1 EACH TAB PO SCH (07:21)
[2018-10-02] MEDS: METOPROLOL TARTRATE 25 MG TAB PO SCH (07:21)
[2018-10-02] MEDS: amLODIPine 10 MG TAB PO SCH (07:21)
[2018-10-02] MEDS: ALPRAZolam 0.5 MG TAB PO PRN ×3 (07:21→21:28)
[2018-10-02] MEDS: METOPROLOL SUCCINATE (ER) 25 MG TAB.ER.24H PO SCH ×2 (07:21→21:28)
[2018-10-02] MEDS: NITROGLYCERIN OINT 1 INCH/GM PACKET TOPICAL SCH (07:22)
[2018-10-02] MEDS: PANTOPRAZOLE 40 MG/10 ML VIAL IVP SCH ×2 (07:22→21:27)
[2018-10-02] MEDS: HYDROmorphone 0.5 MG/0.5 ML SYRINGE IVP PRN ×4 (07:22→21:27)
[2018-10-02] MEDS: CITALOPRAM HYDROBROMIDE 20 MG TAB PO SCH (07:22)
--- NOTE | 2018-10-02 10:53 | P.PN ---
Subjective Progress Note Date: 10/02/18 This is a 63-year-old female with history of hypertension, hypothyroidism, underlying depression, history of renal cell cancer status post left nephrectomy, presented to the hospital with symptoms of chest discomfort. Her initial troponin came back to be abnormal, for this reason she was taken to the cardiac catheterization lab by Dr. Anne Santa. Cardiac catheterization revealed a moderate lesion in the circumflex, based on fractional flow reserve assessment which came back to be 0.9, and 5 are which was 0.98, medical therapy was advised. Patient did have an echocardiogram with Doppler study performed which revealed a normal left ventricular systolic function, moderate mitral regurgitation. Patient was seen and examined this morning, she's complaining of nausea and vomiting, has some mild chest discomfort which she states has been present since she arrived here. Her blood pressure this morning is 156/100 with a heart rate in the 90s, 98% on room air. White blood cell count 11.7, hemoglobin 12.7, platelet count 281. Sodium 138, potassium 3.4, BUN 17 and creatinine 0.9. Objective - Vital Signs Vital signs: Vital Signs Temp 98.2 F 10/02/18 07:20 Pulse 96 10/02/18 07:20 Resp 20 10/02/18 07:20 BP 156/100 10/02/18 07:20 Pulse Ox 98 10/02/18 07:20 Intake & Output 10/01/18 10/02/18 10/02/18 18:59 06:59 18:59 Intake Total 225 74.278 Output Total 450 0 Balance -225 74.278 Intake: IV 225 0.9 Normal Saline @ 75ml/ 225 hr Intake, IV Titration 74.278 Amount Heparin Sod,Pork in 0.45% 74.278 NaCl 25,000 unit In 0.45 % NaCl 1 250ml.bag @ 11.7 UNITS/KG/HR 10.083 mls/ hr IV .Q24H ZAC Rx#: [id number] Output: Urine 450 0 Other: Voiding Method Toilet Toilet Toilet # Voids 1 - Exam PHYSICAL EXAMINATION: GENERAL: 63-year-old female in no acute distress at the time of my examination HEENT: Head is atraumatic, normocephalic. Pupils equal, round. Sclera anicteric. Conjunctiva are clear. Mucous membranes of the mouth are moist. Neck is supple. There is no elevated jugular venous pressure. No carotid bruit is heard. HEART EXAMINATION: Heart S1, S2 normal. No murmur or gallop heard. CHEST EXAMINATION: Lungs are clear to auscultation and precussion. No chest wall tenderness is noted on palpation or with deep breathing. ABDOMEN: Soft, nontender. Bowel sounds are heard. No organomegaly noted. EXTREMITIES: 2+ peripheral pulses with no evidence of peripheral edema and no calf tenderness noted. NEUROLOGIC patient is awake, alert and oriented 3 . . - Labs CBC & Chem 7: 10/02/18 04:56 10/02/18 04:56 Labs: Abnormal Lab Results - Last 24 Hours (Table) 10/02/18 10/02/18 10/02/18 Range/Units 04:56 04:56 04:56 WBC 11.7 H (3.8-10.6) k/uL Neutrophils # 9.3 H (1.3-7.7) k/uL APTT 40.7 H (22.0-30.0) sec Potassium 3.4 L (3.5-5.1) mmol/L Glucose 109 H (74-99) mg/dL Assessment and Plan Plan: Assessment and plan #1 non-ST elevation [place] status post cardiac catheterization which revealed a moderate lesion in the circumflex, not significant per FFR. Medical therapy advised. Echo revealed normal left ventricular systolic function. CTA negative for pulmonary embolism. #2 hypertension #3 hypothyroidism #4 history of renal cancer status post left nephrectomy #5 hyperlipidemia #6 depression and anxiety Plan We will discontinue the Nitropaste and start the patient on 30 mg of Imdur, we will also start the patient on some Cozaar for more optimal blood pressure control. Discharged home once cleared by primary, a follow-up appointment with Dr. Anne Santa in the office post discharge. DNP note has been reviewed, I agree with a documented findings and plan of care. Patient was seen and examined.
[2018-10-02] MEDS: ISOSORBIDE MONONITRATE ER 30 MG TAB.ER.24H PO SCH (11:30)
[2018-10-02] MEDS ORDERED: Potassium Replacement Protocol 1 EACH MISC MISCELLANE PRN (16:21)
--- NOTE | 2018-10-02 20:45 | PN ---
PROGRESS NOTE DATE OF SERVICE: 10/02/2018. This 63-year-old woman who was admitted with chest pain and features of acute non ST segment elevation myocardial infarction, had a cardiac catheterization which showed only moderate disease and the fractional flow reserve evaluation was negative. The patient is complaining of nausea and as well as abdominal discomfort also at this time. A 2D echo with Doppler was done by Cardiology which showed ejection fraction 60-65 percent. The patient also had paroxysmal atrial fibrillation. The patient is being closely monitored in telemetry at this time. CTA was negative for pulmonary embolism. PAST MEDICAL HISTORY: Reviewed. REVIEW OF SYSTEMS: CARDIOVASCULAR: As mentioned. RESPIRATORY: As mentioned earlier. GI: As mentioned earlier. : No dysuria. NERVOUS SYSTEM: No numbness or weakness. CURRENT MEDICATIONS: Reviewed and include: 1. Xanax 0.5 t.i.d. p.r.n. 2. Norvasc 10 mg. 3. Lipitor 20 mg q.h.s. 4. Celexa 40 mg p.r.n. 5. Vitamin D2 2000 monthly. 6. Heparin infusion. 7. Dilaudid 0.5 q.4 p.r.n. 8. Imdur 30 mg p.o. daily. 9. Synthroid 125 mcg p.o. daily. 10.Cozaar 25 mg p.o. daily. 11.Toprol-XL 25 mg p.o. b.i.d. 12.Lopressor 70 mg p.o. daily. 13.Vitamins 1 p.o. daily. 14.Myrbetriq 25 mg. 15.Zofran 4 mg q.6h. 16.Protonix 40 mg IV b.i.d. PHYSICAL EXAMINATION: Patient is alert, oriented x3. Pulse 80, blood pressure is 96/54, respiration 18, temperature 98.2, pulse ox 97% on room air. HEENT: Conjunctivae normal. Oral mucosa moist. NECK: No jugular venous distention. No carotid bruit. No lymph node enlargement. CARDIOVASCULAR: S1, S2 muffled. RESPIRATORY: Breath sounds diminished in the bases. A few scattered rhonchi and crackles. ABDOMEN: Mild diffuse discomfort. LEGS: No edema. No swelling. NERVOUS SYSTEM: No focal deficits. LABS: WBC 11.2, hemoglobin 12.7, potassium 3.4. Troponin is 2.040. Other labs are reviewed. ASSESSMENT: 1. Chest pain, acute non ST elevation myocardial infarction status post cardiac catheterization, moderate lesions in the circumflex unremarkable based on fractional flow reserve assessment. 2. Continued nausea. 3. Troponin elevated up to 2.040. 4. Increased WBC. 5. History of recent upper respiratory infection. 6. History of gastroesophageal reflux disease. 7. Hypertension. 8. History of pneumonia. 9. History of hypothyroidism. 10.History of degenerative joint disease. 11.Low back pain. 12.History of left kidney cancer. 13.History of nicotine dependence. RECOMMENDATIONS AND DISCUSSION: In this 63-year-old woman who presented with multiple complex medical issues as mentioned earlier, patient continues to be symptomatic. I recommend continue with symptomatic treatment including IV Protonix and also recommend continue follow closely with Cardiology. I would also recommend ultrasound of the abdomen and continued evaluation. Potassium supplement. Guarded prognosis because of multiple complex medical issues. Further recommendations to follow. MMODL / IJN: [id number] /
[2018-10-02] MEDS: ATORVASTATIN 20 MG TAB PO SCH (21:28)
[2018-10-02] MEDS: HEPARIN SOD,PORK IN 0.45% NACL 25,000 UNIT in 0.45% NACL 1 250ML.BAG IV SCH (21:29)
[2018-10-02 21:33] LABS: Amorphous Sediment,Urine Rare /hpf; Appearance,Urine Clear (Clear); Bilirubin,Urine Negative (Negative); Blood,Urine Small (Negative); Color,Urine Yellow; Glucose,Urine (UA) Negative (Negative); Ketones,Urine 1+ (Negative); Leukocyte Esterase,Urine Moderate (Negative); Mucus,Urine Occasional /hpf; Nitrite,Urine Negative (Negative); Protein,Urine Trace (Negative); RBC,Urine 6 /hpf (0-5); Specific Gravity,Urine 1.022 (1.001-1.035); Squamous Epithelial Cell,Urine 5 /hpf (0-4); Urobilinogen,Urine <2.0 mg/dL (<2.0); WBC,Urine 18 /hpf (0-5)
[2018-10-02] MEDS: AZITHROMYCIN 500 MG TAB PO SCH (22:12)
[2018-10-03] MEDS: HYDROmorphone 0.5 MG/0.5 ML SYRINGE IVP PRN ×2 (06:38→12:49)
[2018-10-03] MEDS: LEVOTHYROXINE 125 MCG TAB PO SCH (06:38)
[2018-10-03] MEDS: ONDANSETRON 4 MG/2 ML VIAL IVP PRN ×2 (06:38→12:49)
[2018-10-03] MEDS: AZITHROMYCIN 500 MG TAB PO SCH (07:55)
[2018-10-03] MEDS: Mirabegron [Myrbetriq] 25 MG PO SCH (07:55)
[2018-10-03] MEDS: PANTOPRAZOLE 40 MG/10 ML VIAL IVP SCH (07:55)
[2018-10-03] MEDS: METOPROLOL TARTRATE 25 MG TAB PO SCH (07:55)
[2018-10-03] MEDS: amLODIPine 10 MG TAB PO SCH (07:56)
[2018-10-03] MEDS: METOPROLOL SUCCINATE (ER) 25 MG TAB.ER.24H PO SCH (07:56)
[2018-10-03] MEDS: CITALOPRAM HYDROBROMIDE 20 MG TAB PO SCH (07:56)
[2018-10-03] MEDS: ISOSORBIDE MONONITRATE ER 30 MG TAB.ER.24H PO SCH (07:56)
[2018-10-03] MEDS: MULTIVITAMINS, THERA 1 EACH TAB PO SCH (07:56)
--- NOTE | 2018-10-03 08:22 | US ---
EXAMINATION TYPE: US gallbladder DATE OF EXAM: 10/03/2018 COMPARISON: MR pancreas dated 09/26/2018, MR liver dated 08/11/2017, CT 08/30/2018. US 12/17/2017 CLINICAL HISTORY: cholecystitis. Nausea, Very difficult and limited exam due to overlying bowel gas EXAM MEASUREMENTS: Liver Length: 15.5 cm Gallbladder Wall: 0.2 cm CBD: 0.6 cm Right Kidney: 11.2 x 4.5 x 5.5 cm Pancreas: Obscured by bowel gas Liver: LImited due to overlying bowel gas. Hyperechoic area visualized right lobe measuring 1.3 cm Gallbladder: No stones visualized Evidence for sonographic Pavon's sign: No CBD: wnl Right Kidney: No hydronephrosis. Cystic area visualized lower pole 2.5 x 1.9 x 1.6 cm There is no ascites. IMPRESSION: Exam is limited. Echogenic focus is noted within the right lobe of the liver, previously described multiple hemangiomas within the liver on prior reports. Right kidney shows cortical cyst.
[2018-10-03 08:42] LABS: Calcium 9.3 mg/dL (8.4-10.2); Potassium 3.1 mmol/L (3.5-5.1)
[2018-10-03 08:50] LABS: INR 1.1 (<1.2); Prothrombin Time 11.3 sec (9.0-12.0)
[2018-10-03] MEDS ORDERED: LOSARTAN 25 MG TAB PO SCH (09:00)
[2018-10-03 09:18] LABS: Basophils % (A) 0 %; Eosinophils % (A) 0 %; HCT 37.5 % (34.0-46.0); Lymphocytes # (A) 1.2 k/uL (1.0-4.8); Lymphocytes % (A) 14 %; MCH 27.6 pg (25.0-35.0); MCHC 32.1 g/dL (31.0-37.0); Mean Platelet Volume 7.4; Monocytes # (A) 0.6 k/uL (0-1.0); Monocytes % (A) 7 %; Neutrophils # (A) 6.9 k/uL (1.3-7.7); Neutrophils % (A) 77 %; Platelet Count 302 k/uL (150-450); RBC 4.36 m/uL (3.80-5.40); RDW 13.8 % (11.5-15.5)
--- NOTE | 2018-10-03 10:31 | P.PN ---
Subjective Progress Note Date: 10/03/18 This is a 63-year-old female with history of hypertension, hypothyroidism, underlying depression, history of renal cell cancer status post left nephrectomy, presented to the hospital with symptoms of chest discomfort. Her initial troponin came back to be abnormal, for this reason she was taken to the cardiac catheterization lab by Dr. Anne Santa. Cardiac catheterization revealed a moderate lesion in the circumflex, based on fractional flow reserve assessment which came back to be 0.9, and 5 are which was 0.98, medical therapy was advised. Patient did have an echocardiogram with Doppler study performed which revealed a normal left ventricular systolic function, moderate mitral regurgitation. Patient was seen and examined this morning, she's complaining of nausea and vomiting, has some mild chest discomfort which she states has been present since she arrived here. Her blood pressure this morning is 156/100 with a heart rate in the 90s, 98% on room air. White blood cell count 11.7, hemoglobin 12.7, platelet count 281. Sodium 138, potassium 3.4, BUN 17 and creatinine 0.9. 10/03/2018 Patient was seen and examined this morning, continues to complain of nausea, no chest pain, breathing is stable. Blood pressure 142/70 with a heart rate in the 80s. An ultrasound of the gallbladder has been performed, results are yet pending. From cardiology's perspective, the patient is stable Objective - Vital Signs Vital signs: Vital Signs Temp 97.9 F 10/03/18 04:00 Pulse 74 10/03/18 10:05 Resp 16 10/03/18 04:00 BP 143/74 10/03/18 10:05 Pulse Ox 97 10/03/18 10:05 Intake & Output 10/02/18 10/03/18 10/03/18 18:59 06:59 18:59 Intake Total 1998.392 77.33 358 Output Total 875 Balance 1123.392 77.33 358 Weight 85 kg 83.2 kg Intake: IV 240 0.9 Normal Saline @ 20ML/ 240 HR Intake, IV Titration 98.392 77.33 Amount Heparin Sod,Pork in 0.45% 98.392 77.33 NaCl 25,000 unit In 0.45 % NaCl 1 250ml.bag @ 11.7 UNITS/KG/HR 10.083 mls/ hr IV .Q24H [facility] Rx#: [id number] Oral 1660 358 Output: Urine 875 Other: Voiding Method Toilet Toilet # Voids 3 1 - Exam PHYSICAL EXAMINATION: GENERAL: 63-year-old female in no acute distress at the time of my examination HEENT: Head is atraumatic, normocephalic. Pupils equal, round. Sclera anicteric. Conjunctiva are clear. Mucous membranes of the mouth are moist. Neck is supple. There is no elevated jugular venous pressure. No carotid bruit is heard. HEART EXAMINATION: Heart S1, S2 normal. No murmur or gallop heard. CHEST EXAMINATION: Lungs are clear to auscultation and precussion. No chest wall tenderness is noted on palpation or with deep breathing. ABDOMEN: Soft, nontender. Bowel sounds are heard. No organomegaly noted. EXTREMITIES: 2+ peripheral pulses with no evidence of peripheral edema and no calf tenderness noted. NEUROLOGIC patient is awake, alert and oriented 3 . . - Labs CBC & Chem 7: 10/03/18 08:17 10/03/18 08:17 Labs: Abnormal Lab Results - Last 24 Hours (Table) 10/02/18 10/02/18 10/02/18 Range/Units 13:18 17:10 18:45 APTT 31.6 H 52.7 H (22.0-30.0) sec Sodium (137-145) mmol/L Potassium (3.5-5.1) mmol/L BUN (7-17) mg/dL Creatinine (0.52-1.04) mg/dL Glucose (74-99) mg/dL Urine Protein Trace H (Negative) Urine Ketones 1+ H (Negative) Urine Blood Small H (Negative) Ur Leukocyte Esterase Moderate H (Negative) Urine RBC 6 H (0-5) /hpf Urine WBC 18 H (0-5) /hpf Ur Squamous Epith Cells 5 H (0-4) /hpf Amorphous Sediment Rare H (None) /hpf Urine Mucus Occasional H (None) /hpf 10/03/18 Range/Units 08:17 APTT (22.0-30.0) sec Sodium 136 L (137-145) mmol/L Potassium 3.1 L (3.5-5.1) mmol/L BUN 19 H (7-17) mg/dL Creatinine 1.10 H (0.52-1.04) mg/dL Glucose 107 H (74-99) mg/dL Urine Protein (Negative) Urine Ketones (Negative) Urine Blood (Negative) Ur Leukocyte Esterase (Negative) Urine RBC (0-5) /hpf Urine WBC (0-5) /hpf Ur Squamous Epith Cells (0-4) /hpf Amorphous Sediment (None) /hpf Urine Mucus (None) /hpf Assessment and Plan Plan: Assessment and plan #1 non-ST elevation HI status post cardiac catheterization which revealed a moderate lesion in the circumflex, not significant per FFR. Medical therapy advised. Echo revealed normal left ventricular systolic function. CTA negative for pulmonary embolism. #2 hypertension #3 hypothyroidism #4 history of renal cancer status post left nephrectomy #5 hyperlipidemia #6 depression and anxiety Plan From cardiology's perspective, we'll follow this patient along with you now on an as-needed basis only, please don't hesitate to call us with any questions. Follow-up appointment in the office with Dr. Santa post discharge. DNP note has been reviewed, I agree with a documented findings and plan of care. Patient was seen and examined.
[2018-10-03 10:36] VITALS: RESP 20
[2018-10-03] MEDS ORDERED: POTASSIUM CHLORIDE ER 20 MEQ TAB.ER PO STA (10:53)
--- NOTE | 2018-10-03 11:49 | P.DS ---
Providers Date of admission: 09/30/18 16:24 Attending physician: Robbin Valenzuela Consults: 09/30/18 16:24 Consult Physician Stat Consulting Provider: Arnulfo Bright Consult Reason/Comments: nstemi Do you want consulting provider notified?: Already Contacted Primary care physician: [facility] Course: 63-year-old female came in with complaints of chest pain and was found to have a troponin of 2 which was believed secondary to stress-induced cardiomyopathy although her ejection fraction is within normal limits and patient had a cardiac catheterization did not show any significant atherosclerotic coronary occlusion. Patient was comparing of nausea because of which patient was started on Protonix and right upper quadrant ultrasound did not show any cholelithiasis or cholecystitis. Patient is still nauseous for which I'll refer her to gastroenterology as an outpatient patient already has Zofran at home patient will be discharged on Prilosec for about 14 days. PHYSICAL EXAMINATION: GENERAL: The patient is alert and oriented x3, not in any acute distress. Well developed, well nourished. HEENT: Pupils are round and equally reacting to light. EOMI. No scleral icterus. No conjunctival pallor. Normocephalic, atraumatic. No pharyngeal erythema. No thyromegaly. CARDIOVASCULAR: S1 and S2 present. No murmurs, rubs, or gallops. PULMONARY: Chest is clear to auscultation, no wheezing or crackles. ABDOMEN: Soft, nontender, nondistended, normoactive bowel sounds. No palpable organomegaly. MUSCULOSKELETAL: No joint swelling or deformity. EXTREMITIES: No cyanosis, clubbing, or pedal edema. NEUROLOGICAL: Gross neurological examination did not reveal any focal deficits. SKIN: No rashes. for her chronic medical problems hospitalization course please refer to the dictation by Dr. Valenzuela from yesterday Patient Condition at Discharge: Serious Plan - Discharge Summary New Discharge Prescriptions: New Omeprazole [PriLOSEC] 40 mg PO -BRKFST #14 capsule. Losartan [Cozaar] 25 mg PO DAILY #30 tab Isosorbide Mononitrate ER [Imdur] 30 mg PO DAILY #30 tab.er.24h Atorvastatin [Lipitor] 20 mg PO HS #30 tab Continue Citalopram Hydrobromide [CeleXA] 40 mg PO DAILY ALPRAZolam [Xanax] 0.5 mg PO TID PRN PRN Reason: Anxiety Ondansetron Odt [Zofran ODT] 4 mg PO Q8HR PRN PRN Reason: Nausea Mirabegron [Myrbetriq] 25 mg PO DAILY Ergocalciferol (Vitamin D2) [Drisdol] 50,000 unit PO QMONTH Multivitamins, Thera [Multivitamin (formulary)] 1 tab PO DAILY Levothyroxine Sodium [Synthroid] 125 mcg PO DAILY Changed Metoprolol Succinate (ER) [Toprol XL] 75 mg PO DAILY #30 tab.er.24h Discharge Medication List ALPRAZolam [Xanax] 0.5 mg PO TID PRN 07/08/17 [History] Citalopram Hydrobromide [CeleXA] 40 mg PO DAILY 07/08/17 [History] Ergocalciferol (Vitamin D2) [Drisdol] 50,000 unit PO QMONTH 05/25/18 [History] Mirabegron [Myrbetriq] 25 mg PO DAILY 05/25/18 [History] Ondansetron Odt [Zofran ODT] 4 mg PO Q8HR PRN 05/25/18 [History] Levothyroxine Sodium [Synthroid] 125 mcg PO DAILY 09/30/18 [History] Multivitamins, Thera [Multivitamin (formulary)] 1 tab PO DAILY 09/30/18 [History] Atorvastatin [Lipitor] 20 mg PO HS #30 tab 10/03/18 [Rx] Isosorbide Mononitrate ER [Imdur] 30 mg PO DAILY #30 tab.er.24h 10/03/18 [Rx] Losartan [Cozaar] 25 mg PO DAILY #30 tab 10/03/18 [Rx] Metoprolol Succinate (ER) [Toprol XL] 75 mg PO DAILY #30 tab.er.24h 10/03/18 [Rx] Omeprazole [PriLOSEC] 40 mg PO AC-BRKFST #14 capsule.dr 10/03/18 [Rx] Follow up Appointment(s)/Referral(s): Edmar Holder III, MD [Primary Care Provider] - 3 Days Roseline Bright MD [STAFF PHYSICIAN] - 1 Week Discharge Disposition: HOME SELF-CARE
[2018-10-03] MEDS: ALPRAZolam 0.5 MG TAB PO PRN (12:49)
[2018-10-03 13:08] VITALS: BP 116/58; PULSE 68; TEMP 97.8
[2018-10-14] MEDS ORDERED: ERGOCALCIFEROL 50,000 UNIT CAP PO SCH (09:00)
== END 2018-10-03 13:20 | disposition home or self-care (01) | DRG 287 ==
LOC: EC 12:23 → 3SCARD 16:24 → 2SICU 23:06 → 3SCARD 10-01 14:26
PROVIDERS: ADMIT Hospitalist; ATTEND Hospitalist
PROC: 4A033BC Measurement of Arterial Pressure, Coronary, Percutaneous Approach (ICD-10-PCS; 2018-09-30)
PROC: 4A023N7 Measurement of Cardiac Sampling and Pressure, Left Heart, Percutaneous Approach (ICD-10-PCS; principal; 2018-09-30 21:31)
PROC: B2111ZZ Fluoroscopy of Multiple Coronary Arteries using Low Osmolar Contrast (ICD-10-PCS; 2018-09-30 21:31)
DX: I51.81 Takotsubo syndrome (principal); J98.11 Atelectasis; E03.9 Hypothyroidism, unspecified; E78.5 Hyperlipidemia, unspecified; F32.9 Major depressive disorder, single episode, unspecified; F41.9 Anxiety disorder, unspecified; I10 Essential (primary) hypertension; K57.90 Diverticulosis of intestine, part unspecified, without perforation or abscess without bleeding; I25.2 Old myocardial infarction; I34.0 Nonrheumatic mitral (valve) insufficiency; I48.0 Paroxysmal atrial fibrillation; K21.9 Gastro-esophageal reflux disease without esophagitis; K44.9 Diaphragmatic hernia without obstruction or gangrene; M19.90 Unspecified osteoarthritis, unspecified site; R11.2 Nausea with vomiting, unspecified; D72.829 Elevated white blood cell count, unspecified; Z79.890 Hormone replacement therapy; Z79.899 Other long term (current) drug therapy; Z88.2 Allergy status to sulfonamides; Z88.8 Allergy status to other drugs, medicaments and biological substances; Z85.528 Personal history of other malignant neoplasm of kidney; Z90.5 Acquired absence of kidney; Z87.891 Personal history of nicotine dependence; Z87.11 Personal history of peptic ulcer disease; Z87.01 Personal history of pneumonia (recurrent); Z86.010 Personal history of colon polyps; Z98.51 Tubal ligation status
CPT/HCPCS: 36415; 71045; 71046; 71275; 76705; 80048; 80053; 80061; 81001; 82150; 83690; 83735; 83880; 84439; 84443; 84481; 84484; 85025; 85379; 85610; 85730; 93005; 93306; 93458; 93571; 96365; 96368; 96375; 96376; 99291

== ENCOUNTER 2018-10-05 13:33 | Observation (INO) | payer OTHER ==
[2018-10-05] MEDS ORDERED: SODIUM CHLORIDE 0.9% 1,000 ML IV STA (14:13)
[2018-10-05] MEDS ORDERED: NITROGLYCERIN SL TABS 0.4 MG TAB SUBLINGUAL STA ×3 (14:13)
[2018-10-05] MEDS ORDERED: ASPIRIN 81 MG PO STA (14:13)
--- NOTE | 2018-10-05 14:18 | ED ---
General Adult HPI - General Chief complaint: Chest Pain Stated complaint: chest pain/revisit Time Seen by Provider: 10/05/18 13:58 Source: patient, RN notes reviewed, old records reviewed (Patient did have CT angios done on previous visit negative for pulmonary embolism.) Mode of arrival: wheelchair Limitations: no limitations - History of Present Illness Initial comments: Patient is a 63-year-old female presenting to the emergency Department with com plaints of chest discomfort. Onset of symptoms was this morning. Discomfort is somewhat severe. Discomfort has been intermittent. Patient does have history of similar symptoms within the past couple weeks and was in the hospital at that time. Patient states she tried "everything at home "however is unable to specify which she has tried. Patient is asked if she did strike her medications and she states "whenever I was prescribed ". Patient is irrigated and providing history. Patient states she does have associated dyspnea, nausea, and sweating. Patient is unclear if she has had similar symptoms prior to the past week however believes she may have had a heart attack once in the past. - Related Data Home Medications Medication Instructions Recorded Confirmed ALPRAZolam [Xanax] 0.5 mg PO TID PRN 07/08/17 10/05/18 Citalopram Hydrobromide [CeleXA] 40 mg PO DAILY 07/08/17 10/05/18 Ergocalciferol (Vitamin D2) 50,000 unit PO QMONTH 05/25/18 10/05/18 [Drisdol] Mirabegron [Myrbetriq] 25 mg PO DAILY 05/25/18 10/05/18 Ondansetron Odt [Zofran ODT] 4 mg PO Q8HR PRN 05/25/18 10/05/18 Levothyroxine Sodium [Synthroid] 125 mcg PO DAILY 09/30/18 10/05/18 Multivitamins, Thera [Multivitamin 1 tab PO DAILY 09/30/18 10/05/18 (formulary)] Previous Rx's Medication Instructions Recorded Atorvastatin [Lipitor] 20 mg PO HS #30 tab 10/03/18 Isosorbide Mononitrate ER [Imdur] 30 mg PO DAILY #30 tab.er.24h 10/03/18 Losartan [Cozaar] 25 mg PO DAILY #30 tab 10/03/18 Metoprolol Succinate (ER) [Toprol 75 mg PO DAILY #30 tab.er.24h 10/03/18 XL] Omeprazole [PriLOSEC] 40 mg PO ITA #14 capsule. 10/03/18 Allergies Allergy/AdvReac Type Severity Reaction Status Date / Time Sulfa (Sulfonamide Allergy Rash/Hives Verified 10/05/18 13:56 Antibiotics) Review of Systems ROS Statement: Those systems with pertinent positive or pertinent negative responses have been documented in the HPI. ROS Other: All systems not noted in ROS Statement are negative. Constitutional: Denies: fever Eyes: Denies: eye pain ENT: Denies: ear pain Respiratory: Reports: dyspnea Cardiovascular: Reports: chest pain Endocrine: Denies: fatigue Gastrointestinal: Denies: abdominal pain Genitourinary: Denies: dysuria Musculoskeletal: Denies: back pain Skin: Denies: as per HPI Neurological: Denies: headache, weakness Past Medical History Past Medical History: Cancer, Chest Pain / Angina, GERD/Reflux, Hypertension, Myocardial Infarction ([place]), Pneumonia, Thyroid Disorder Additional Past Medical History / Comment(s): Recent upper respiratory infection, "2012 electrical heart attack", PUD, hypothyroid, low back pain, past migraines, lt foot fx with surgery, rib fx, diverticulosis dx/benign polyp.stress test 02-17-17, lt kidney ca(sx) Last Myocardial Infarction Date:: 2012 History of Any Multi-Drug Resistant Organisms: None Reported Past Surgical History: Back Surgery, Heart Catheterization, Orthopedic Surgery, Tonsillectomy, Tubal Ligation Additional Past Surgical History / Comment(s): 2012 cardiac cath-normal, 01/11/17 colonoscopy/benign polypectomy, ORIF LT FT, back x2, "lt NEPHRECTOMY d/t cancer 2 weeks ago" Past Anesthesia/Blood Transfusion Reactions: No Reported Reaction Additional Past Anesthesia/Blood Transfusion Reaction / Comment(s): no hx blood transfusion Past Psychological History: No Psychological Hx Reported Smoking Status: Former smoker Past Alcohol Use History: None Reported Past Drug Use History: None Reported - Past Family History Mother Family Medical History: No Reported History Additional Family Medical History / Comment(s): Mother was healthy and lived to be 92 yrs. old. Father History Unknown: Yes Family Medical History: No Reported History General Exam Limitations: no limitations General appearance: alert, in no apparent distress Head exam: Present: atraumatic Eye exam: Present: normal appearance, PERRL ENT exam: Present: normal oropharynx Neck exam: Present: normal inspection Respiratory exam: Present: normal lung sounds bilaterally, chest wall tenderness Cardiovascular Exam: Present: regular rate, normal rhythm Expanded Peripheral pulses: 2+: Radial (R), Radial (L), Dorsalis Pedis (R), Dorsalis Pedis (L) GI/Abdominal exam: Present: soft. Absent: tenderness Extremities exam: Present: normal inspection. Absent: pedal edema, calf te nderness Neurological exam: Present: alert Psychiatric exam: Present: normal affect, normal mood Skin exam: Present: normal color Course Vital Signs 10/05/18 10/05/18 13:37 14:30 Temperature 98 F Pulse Rate 68 88 Respiratory 16 16 Rate Blood Pressure 139/85 178/107 O2 Sat by Pulse 98 99 Oximetry EKG Findings - EKG Comments: EKG Findings:: Normal sinus rhythm 64. FL 1:30. QRS 92. QT 446. QTc 460. Normal axis. Normal QRS. No acute ST change. Repeat EKG shows normal sinus rhythm 73. FL 134. QRS 82. QT 416. QTc 458. Normal axis. Normal QRS. No acute ST change. Medical Decision Making - Medical Decision Making Patient reevaluated and improved. Patient states discomfort was 4/10. Patient requests pain medication other than nitroglycerin. Patient is updated on results and plan. Case was discussed in detail with Dr. Patricio, covering for Dr. Holder, who will admit. - Lab Data Result diagrams: 10/05/18 13:50 10/05/18 13:50 Lab Results 10/05/18 10/05/18 10/05/18 Range/Units 13:50 13:50 13:50 WBC 10.9 H (3.8-10.6) k/uL RBC 4.07 (3.80-5.40) m/uL Hgb 11.1 L (11.4-16.0) gm/dL Hct 34.4 (34.0-46.0) % MCV 84.6 (80.0-100.0) fL MCH 27.2 (25.0-35.0) pg MCHC 32.2 (31.0-37.0) g/dL RDW 14.2 (11.5-15.5) % Plt Count 314 (150-450) k/uL Neutrophils % 78 % Lymphocytes % 13 % Monocytes % 6 % Eosinophils % 1 % Basophils % 0 % Neutrophils # 8.5 H (1.3-7.7) k/uL Lymphocytes # 1.5 (1.0-4.8) k/uL Monocytes # 0.6 (0-1.0) k/uL Eosinophils # 0.1 (0-0.7) k/uL Basophils # 0.0 (0-0.2) k/uL PT (9.0-12.0) sec INR (<1.2) APTT (22.0-30.0) sec Sodium 138 (137-145) mmol/L Potassium 3.6 (3.5-5.1) mmol/L Chloride 105 (98-107) mmol/L Carbon Dioxide 23 (22-30) mmol/L Anion Gap 10 mmol/L BUN 14 (7-17) mg/dL Creatinine 1.14 H (0.52-1.04) mg/dL Est GFR (CKD-EPI)AfAm 60 (>60 ml/min/1.73 sqM) Est GFR (CKD-EPI)NonAf 52 (>60 ml/min/1.73 sqM) Glucose 103 H (74-99) mg/dL Calcium 9.4 (8.4-10.2) mg/dL Magnesium 1.9 (1.6-2.3) mg/dL Total Bilirubin 0.4 (0.2-1.3) mg/dL AST 18 (14-36) U/L ALT 20 (9-52) U/L Alkaline Phosphatase 72 (38-126) U/L Creatine Kinase 95 (30-135) U/L CK-MB (CK-2) 1.5 (0.0-2.4) ng/mL Troponin I 0.061 H* (0.000-0.034) ng/mL NT-Pro-B Natriuret Pep pg/mL Total Protein 7.2 (6.3-8.2) g/dL Albumin 3.9 (3.5-5.0) g/dL Amylase 123 H (30-110) U/L Lipase 98 (23-300) U/L Urine Color Urine Appearance (Clear) Urine pH (5.0-8.0) Ur Specific Perkins (1.001-1.035) Urine Protein (Negative) Urine Glucose (UA) (Negative) Urine Ketones (Negative) Urine Blood (Negative) Urine Nitrite (Negative) Urine Bilirubin (Negative) Urine Urobilinogen (<2.0) mg/dL Ur Leukocyte Esterase (Negative) Urine RBC (0-5) /hpf Urine WBC (0-5) /hpf 10/05/18 10/05/18 10/05/18 Range/Units 13:50 13:50 13:50 WBC (3.8-10.6) k/uL RBC (3.80-5.40) m/uL Hgb (11.4-16.0) gm/dL Hct (34.0-46.0) % MCV (80.0-100.0) fL MCH (25.0-35.0) pg MCHC (31.0-37.0) g/dL RDW (11.5-15.5) % Plt Count (150-450) k/uL Neutrophils % % Lymphocytes % % Monocytes % % Eosinophils % % Basophils % % Neutrophils # (1.3-7.7) k/uL Lymphocytes # (1.0-4.8) k/uL Monocytes # (0-1.0) k/uL Eosinophils # (0-0.7) k/uL Basophils # (0-0.2) k/uL PT 11.0 (9.0-12.0) sec INR 1.0 (<1.2) APTT 22.4 (22.0-30.0) sec Sodium (137-145) mmol/L Potassium (3.5-5.1) mmol/L Chloride (98-107) mmol/L Carbon Dioxide (22-30) mmol/L Anion Gap mmol/L BUN (7-17) mg/dL Creatinine (0.52-1.04) mg/dL Est GFR (CKD-EPI)AfAm (>60 ml/min/1.73 sqM) Est GFR (CKD-EPI)NonAf (>60 ml/min/1.73 sqM) Glucose (74-99) mg/dL Calcium (8.4-10.2) mg/dL Magnesium (1.6-2.3) mg/dL Total Bilirubin (0.2-1.3) mg/dL AST (14-36) U/L ALT (9-52) U/L Alkaline Phosphatase (38-126) U/L Creatine Kinase (30-135) U/L CK-MB (CK-2) (0.0-2.4) ng/mL Troponin I (0.000-0.034) ng/mL NT-Pro-B Natriuret Pep 1180 pg/mL Total Protein (6.3-8.2) g/dL Albumin (3.5-5.0) g/dL Amylase (30-110) U/L Lipase (23-300) U/L Urine Color Light Yellow Urine Appearance Clear (Clear) Urine pH 7.0 (5.0-8.0) Ur Specific Perkins 1.005 (1.001-1.035) Urine Protein Negative (Negative) Urine Glucose (UA) Negative (Negative) Urine Ketones Negative (Negative) Urine Blood Trace H (Negative) Urine Nitrite Negative (Negative) Urine Bilirubin Negative (Negative) Urine Urobilinogen <2.0 (<2.0) mg/dL Ur Leukocyte Esterase Negative (Negative) Urine RBC 1 (0-5) /hpf Urine WBC <1 (0-5) /hpf - Radiology Data Radiology results: image reviewed (Chest x-ray shows no acute process.) Disposition Clinical Impression: Chest pain Disposition: ADMITTED IP TO THIS HOSP Is patient prescribed a controlled substance at d/c from ED?: No Referrals: Edmar Holder III, MD [Primary Care Provider] - 1-2 days Decision Time: 16:20
[2018-10-05] MEDS ORDERED: ONDANSETRON 4 MG/2 ML VIAL IVP STA (14:24)
[2018-10-05 14:31] LABS: Partial Thromboplastin Time 22.4 sec (22.0-30.0)
[2018-10-05 14:48] LABS: Albumin 3.9 g/dL (3.5-5.0); Calcium 9.4 mg/dL (8.4-10.2); Magnesium 1.9 mg/dL (1.6-2.3); Potassium 3.6 mmol/L (3.5-5.1); Total Bilirubin 0.4 mg/dL (0.2-1.3); Total Protein 7.2 g/dL (6.3-8.2)
[2018-10-05 14:52] LABS: Appearance,Urine Clear (Clear); Basophils % (A) 0 %; Bilirubin,Urine Negative (Negative); Blood,Urine Trace (Negative); Color,Urine Light Yellow; Eosinophils # (A) 0.1 k/uL (0-0.7); Eosinophils % (A) 1 %; Glucose,Urine (UA) Negative (Negative); HCT 34.4 % (34.0-46.0); HGB 11.1 gm/dL (11.4-16.0); Ketones,Urine Negative (Negative); Leukocyte Esterase,Urine Negative (Negative); Lymphocytes # (A) 1.5 k/uL (1.0-4.8); Lymphocytes % (A) 13 %; MCH 27.2 pg (25.0-35.0); MCHC 32.2 g/dL (31.0-37.0); MCV 84.6 fL (80.0-100.0); Mean Platelet Volume 6.8; Monocytes # (A) 0.6 k/uL (0-1.0); Monocytes % (A) 6 %; Neutrophils # (A) 8.5 k/uL (1.3-7.7); Neutrophils % (A) 78 %; Nitrite,Urine Negative (Negative); Platelet Count 314 k/uL (150-450); Protein,Urine Negative (Negative); RBC 4.07 m/uL (3.80-5.40); RBC,Urine 1 /hpf (0-5); RDW 14.2 % (11.5-15.5); Specific Gravity,Urine 1.005 (1.001-1.035); Urobilinogen,Urine <2.0 mg/dL (<2.0); WBC 10.9 k/uL (3.8-10.6)
[2018-10-05 14:55] LABS: Creatine Kinase MB 1.5 ng/mL (0.0-2.4)
--- NOTE | 2018-10-05 14:58 | XR ---
EXAMINATION TYPE: XR chest 2V DATE OF EXAM: 10/05/2018 COMPARISON: 10/01/2018 HISTORY: Cough and shortness of breath. Chest pain. TECHNIQUE: Frontal and lateral views of the chest are obtained. FINDINGS: There is no focal air space opacity, pleural effusion, or pneumothorax seen. There is inside meter tester chriss slight right hemidiaphragm elevation. The cardiac silhouette size is within normal limits. The osseous structures are intact. Mild multilevel degenerative changes of the spine are seen. IMPRESSION: No acute cardiopulmonary process.
[2018-10-05 15:04] LABS: Troponin I 0.061 ng/mL (0.000-0.034)
[2018-10-05] MEDS ORDERED: MORPHINE SULFATE 4 MG/ML SYRINGE IV STA (16:18)
[2018-10-05] MEDS ORDERED: NITROGLYCERIN SL TABS 0.4 MG TAB SUBLINGUAL PRN (16:20)
[2018-10-05] MEDS ORDERED: METOPROLOL SUCCINATE (ER) 25 MG TAB.ER.24H PO STA (17:34)
[2018-10-05] MEDS ORDERED: LOSARTAN 25 MG TAB PO STA (17:34)
[2018-10-05 17:49] VITALS: BMI 29.7
[2018-10-05 17:59] LABS: Amphetamine Screen,Urine Not Detected (NotDetected); Barbiturate Screen,Urine Not Detected (NotDetected); Benzodiazepines Screen,Urine Detected (NotDetected); Cocaine Screen,Urine Not Detected (NotDetected); Methadone Screen, Urine Not Detected (NotDetected); Opiate Screen,Urine Not Detected (NotDetected); Oxycodone Screen, Urine Not Detected (NotDetected); Phencyclidine Screen,Urine Not Detected (NotDetected); Tricyclic Antidepressant,Urine Not Detected (NotDetected); Urn Cannabinoid Scrn Detected (NotDetected)
[2018-10-05] MEDS: NITROGLYCERIN OINT 1 INCH/GM PACKET TOPICAL SCH (18:32)
[2018-10-05] MEDS: LORazepam 2 MG/ML INJ IV PRN (19:03)
[2018-10-05] MEDS: ATORVASTATIN 20 MG TAB PO SCH (21:42)
[2018-10-05] MEDS: ONDANSETRON 4 MG/2 ML VIAL IVP PRN (21:42)
[2018-10-06] MEDS: LORazepam 2 MG/ML INJ IV PRN ×4 (00:50→21:01)
[2018-10-06] MEDS: HEPARIN SODIUM,PORCINE 5,000 UNIT/ML 1 ML VIAL SQ SCH ×4 (00:51→23:09)
--- NOTE | 2018-10-06 01:36 | P.HPIM ---
History of Present Illness H&P Date: 10/05/18 Chief Complaint: Chest Pain Patient is a 61-year-old female with a known history of hypertension, hypothyroidism, depression, history of renal cell carcinoma status post left nephrectomy about 1 year ago came to ER with complaints of chest pain. Chest pain is mainly in the epigastric region associated with nausea. Denies any radiation of the pain. No headache or dizziness or lightheadedness. Chest pain was associated with shortness of breath, nausea and diaphoresis. Patient felt symptoms similar to her recent admission. Patient was discharged from the hospital on 10/03/2018. Patient was admitted to the hospital with chest pain and underwent cardiac catheterization revealed moderate lesion in the circumflex. Thought to have stress-induced cardiomyopathy with ejection fraction was within normal limits at that time. Patient's blood pressure was also elevated on admission. No complaints of cough or sputum production. No fever no chills. No leg swelling. No abdominal pain or diarrhea. Troponin level is 0.06. Which is lower than previous admission at greater than 2 EKG showed normal sinus rhythm Patient is otherwise a poor historian. Patient also had ultrasound of the abdomen recently which showed no evidence of cholecystitis. Found to have hemangiomas in the liver. Review of Systems Constitutional: Patient denies any fever or chills . No generalized weakness or weight loss. Abdomen: Patient denied nausea vomiting and diarrhea and abdominal pain. Cardiovascular: Patient does have CP and SOB. no palpitations. Respiratory: patient denied any cough is from production. No shortness of breath Neurologic: Patient denied any numbness or tingling headache. Musculoskeletal: Patient denies any complaints of joint swelling or deformity. Skin: Negative Psychiatric: anxiety Endocrine: No heat or cold intolerance. No recent weight gain. Genitourinary: No dysuria or hematuria. All other 14 point ROS negative except the above Past Medical History Past Medical History: Cancer, Chest Pain / Angina, GERD/Reflux, Hypertension, Myocardial Infarction ([place]), Pneumonia, Thyroid Disorder Additional Past Medical History / Comment(s): Recent upper respiratory infection, "2013 electrical heart attack", PUD, hypothyroid, low back pain, past migraines, lt foot fx with surgery, rib fx, diverticulosis dx/benign polyp.stress test 02-17-17, lt kidney ca(sx) Last Myocardial Infarction Date:: 2012 History of Any Multi-Drug Resistant Organisms: None Reported Past Surgical History: Back Surgery, Heart Catheterization, Orthopedic Surgery, Tonsillectomy, Tubal Ligation Additional Past Surgical History / Comment(s): 2012 cardiac cath-normal, 01/11/17 colonoscopy/benign polypectomy, ORIF LT FT, back x2, "lt NEPHRECTOMY d/t cancer". 09/30-heart cath-clear. Past Anesthesia/Blood Transfusion Reactions: No Reported Reaction Additional Past Anesthesia/Blood Transfusion Reaction / Comment(s): no hx blood transfusion Smoking Status: Former smoker - Past Family History Mother Family Medical History: No Reported History Additional Family Medical History / Comment(s): Mother was healthy and lived to be 92 yrs. old. Father History Unknown: Yes Family Medical History: No Reported History Medications and Allergies Home Medications Medication Instructions Recorded Confirmed Type ALPRAZolam [Xanax] 0.5 mg PO TID PRN 07/08/17 10/05/18 History Citalopram Hydrobromide [CeleXA] 40 mg PO DAILY 07/08/17 10/05/18 History Ergocalciferol (Vitamin D2) 50,000 unit PO QMONTH 05/25/18 10/05/18 History [Drisdol] Mirabegron [Myrbetriq] 25 mg PO DAILY 05/25/18 10/05/18 History Ondansetron Odt [Zofran ODT] 4 mg PO Q8HR PRN 05/25/18 10/05/18 History Levothyroxine Sodium [Synthroid] 125 mcg PO DAILY 09/30/18 10/05/18 History Multivitamins, Thera [Multivitamin 1 tab PO DAILY 09/30/18 10/05/18 History (formulary)] Atorvastatin [Lipitor] 20 mg PO HS #30 tab 10/03/18 10/05/18 Rx Isosorbide Mononitrate ER [Imdur] 30 mg PO DAILY #30 tab.er.24h 10/03/18 Rx Losartan [Cozaar] 25 mg PO DAILY #30 tab 10/03/18 10/05/18 Rx Metoprolol Succinate (ER) [Toprol 75 mg PO DAILY #30 tab.er.24h 10/03/18 10/05/18 Rx XL] Omeprazole [PriLOSEC] 40 mg PO AC-SHAKA #14 capsule. 10/03/18 10/05/18 Rx Allergies Allergy/AdvReac Type Severity Reaction Status Date / Time Sulfa (Sulfonamide Allergy Rash/Hives Verified 10/05/18 13:56 Antibiotics) Physical Exam Vitals: Vital Signs Temp Pulse Pulse Resp BP BP Pulse Ox 10/05/18 18:34 90 18 10/05/18 18:32 98.3 F 90 20 192/106 97 10/05/18 18:00 98.2 F 10/05/18 17:55 30 H 10/05/18 17:53 97 10/05/18 17:43 98.7 F 98 18 152/90 98 10/05/18 15:30 92 16 168/101 98 10/05/18 14:30 88 16 178/107 99 10/05/18 13:45 62 10/05/18 13:37 98 F 68 16 139/85 98 Intake and Output 10/05/18 10/05/18 10/05/18 06:59 14:59 22:59 Other: Voiding Method Toilet Weight 86.183 kg PHYSICAL EXAMINATION: Patient is lying in the bed comfortably, no acute distress, awake alert and oriented.anxious. HEENT: Normocephalic. Neck is supple. Pupils reactive. Conjunctivae are red [id number] crusting at the side of the eyes. Nostrils clear. Oral cavity is moist. Ears reveal no drainage. Neck reveals no JVD, carotid bruits, or thyromegaly. CHEST EXAMINATION: Trachea is central. Symmetrical expansion. Bibasilar diminished air entry. No wheezing or crackles. Lung walter clear to auscultation and percussion. CARDIAC: Normal S1, S2 with no gallops. No murmurs ABDOMEN: Soft. Bowel sounds normal. No organomegaly. No abdominal bruits. Extremities: reveal no edema. No clubbing or cyanosis Neurologically awake, alert, oriented x3 with well-coordinated movements. No focal deficits noted Skin: No rash or skin lesions. Psychiatric: Coperative. Nonsuicidal at this time. Depressed. Musculoskeletal: No joint swelling or deformity. Normal range of motion. Results CBC & Chem 7: 10/05/18 13:50 10/05/18 13:50 Labs: Abnormal Lab Results - Last 24 Hours (Table) 10/05/18 10/05/18 10/05/18 Range/Units 13:50 13:50 13:50 WBC 10.9 H (3.8-10.6) k/uL Hgb 11.1 L (11.4-16.0) gm/dL Neutrophils # 8.5 H (1.3-7.7) k/uL Creatinine 1.14 H (0.52-1.04) mg/dL Glucose 103 H (74-99) mg/dL Troponin I 0.061 H* (0.000-0.034) ng/mL Amylase 123 H (30-110) U/L Urine Blood (Negative) U Benzodiazepines Scrn (NotDetected) U Marijuana (THC) Screen (NotDetected) 10/05/18 10/05/18 Range/Units 13:50 17:47 WBC (3.8-10.6) k/uL Hgb (11.4-16.0) gm/dL Neutrophils # (1.3-7.7) k/uL Creatinine (0.52-1.04) mg/dL Glucose (74-99) mg/dL Troponin I (0.000-0.034) ng/mL Amylase (30-110) U/L Urine Blood Trace H (Negative) U Benzodiazepines Scrn Detected H (NotDetected) U Marijuana (THC) Screen Detected H (NotDetected) Thrombosis Risk Factor Assmnt - DVT/VTE Prophylaxis DVT/VTE Prophylaxis: Pharmacologic Prophylaxis ordered - Choose All That Apply Any of the Below Risk Factors Present?: Yes Each Factor Represents 1 point: Obesity (BMI >25) Other Risk Factors: Yes Each Risk Factor Represents 2 Points: Age 61-74 years Other congenital or acquired thrombophilia - If yes, enter type in comment: No Thrombosis Risk Factor Assessment Total Risk Factor Score: 3 Thrombosis Risk Factor Assessment Level: Moderate Risk Assessment and Plan Assessment: -Chest pain with intermediate troponin level. Patient had cardiac catheterization on 10/03/2018 showed moderate lesion in the circumflex. No evidence of significant obstruction. Thought to be due to stress-induced cardiomyopathy. EF was within normal limits. Troponin level is lower than previous admission. Epigastric chest pain could be related to GI related. continue with medicalk management with ASA, stains and BB. Uncontrolled hypertension due to anxiety and pain. Hypothyroidism History of renal cell carcinoma status post left nephrectomy about 1 year ago Anxiety and depression GERD History of peptic ulcer disease Chronic low back pain History of migraine headache History of diverticulosis Previous history of smoking GI and DVT prophylaxis. Plan: Patient will be continued on telemetry monitoring. Serial troponins. Continue with pain management. Continue with Protonix before breakfast daily. Continue with home medications and follow-up closely. Cardiology was consulted to reevaluate the patient. Further recommendations based on the clinical course. Time with Patient: Greater than 30
[2018-10-06] MEDS: ONDANSETRON 4 MG/2 ML VIAL IVP PRN ×4 (02:26→23:09)
[2018-10-06] MEDS: NITROGLYCERIN OINT 1 INCH/GM PACKET TOPICAL SCH ×3 (06:36→12:58)
[2018-10-06] MEDS: LEVOTHYROXINE 125 MCG TAB PO SCH (06:42)
[2018-10-06 06:54] LABS: Basophils % (A) 0 %; Eosinophils # (A) 0.2 k/uL (0-0.7); Eosinophils % (A) 2 %; HCT 34.4 % (34.0-46.0); HGB 10.9 gm/dL (11.4-16.0); Lymphocytes # (A) 1.2 k/uL (1.0-4.8); Lymphocytes % (A) 16 %; MCH 28.4 pg (25.0-35.0); MCHC 31.6 g/dL (31.0-37.0); Mean Platelet Volume 7.4; Monocytes # (A) 0.5 k/uL (0-1.0); Monocytes % (A) 6 %; Neutrophils # (A) 5.7 k/uL (1.3-7.7); Neutrophils % (A) 73 %; Platelet Count 295 k/uL (150-450); RBC 3.83 m/uL (3.80-5.40); RDW 15.5 % (11.5-15.5); WBC 7.9 k/uL (3.8-10.6)
[2018-10-06 06:57] LABS: MCV 89.9 fL (80.0-100.0)
[2018-10-06 07:01] LABS: Potassium 3.4 mmol/L (3.5-5.1)
[2018-10-06] MEDS ORDERED: PANTOPRAZOLE 40 MG TABLET PO SCH (07:30)
[2018-10-06] MEDS ORDERED: ISOSORBIDE MONONITRATE ER 30 MG TAB.ER.24H PO SCH (09:00)
[2018-10-06] MEDS ORDERED: ERGOCALCIFEROL 50,000 UNIT CAP PO SCH (09:00)
[2018-10-06] MEDS: METOPROLOL SUCCINATE (ER) 25 MG TAB.ER.24H PO SCH (09:33)
[2018-10-06] MEDS: MULTIVITAMINS, THERA 1 EACH TAB PO SCH (09:33)
[2018-10-06] MEDS: LOSARTAN 25 MG TAB PO SCH (09:33)
[2018-10-06] MEDS: CITALOPRAM HYDROBROMIDE 20 MG TAB PO SCH (09:33)
[2018-10-06] MEDS: PANTOPRAZOLE 40 MG TABLET PO SCH ×2 (09:33→21:00)
[2018-10-06] MEDS: ASPIRIN 325 MG TAB PO SCH (09:33)
[2018-10-06] MEDS ORDERED: Potassium Replacement Protocol 1 EACH MISC MISCELLANE PRN (11:31)
[2018-10-06] MEDS: POTASSIUM CHLORIDE 20 MEQ in WATER FOR INJECTION 1 100ML.BAG IVPB SCH ×3 (12:57→18:27)
--- NOTE | 2018-10-06 13:29 | P.PN ---
Subjective 61-year-old female with a known history of hypertension, hypothyroidism, depression, history of renal cell carcinoma status post left nephrectomy about 1 year ago came to ER with complaints of chest pain. Chest pain is mainly in the epigastric region associated with nausea. Denies any radiation of the pain. No headache or dizziness or lightheadedness. Chest pain was associated with shortness of breath, nausea and diaphoresis. Patient felt symptoms similar to her recent admission. Patient was discharged from the hospital on 10/03/2018. Stephanie beal was admitted to the hospital with chest pain and underwent cardiac catheterization revealed moderate lesion in the circumflex. Thought to have stress-induced cardiomyopathy with ejection fraction was within normal limits at that time. Patient's blood pressure was also elevated on admission. 10/06/2018 Patient the chest pain is related to peptic ulcer disease patient of Protonix was changed to twice a day. Patient is still having severe nausea vomiting because of which I'm consulting gastroenterology and patient the did not have her bowel movement patient abdomen is tympanic with sluggish bowel sounds I'll obtain x-ray of the abdomen. Cardiac consultation will be discontinued. Constitutional: Denied any fatigue denied any fever. Cardio vascular: denied any chest pain, palpitations Gastrointestinal as mentioned in HPI Pulmonary: Denied any shortness of breath cough Neurologic denied any new focal deficits All inpatient medications were reviewed and appropriate changes in these medications as dictated in the interval history and assessment and plan. Objective - Vital Signs Vital signs: Vital Signs Temp 98 F 10/06/18 08:10 Pulse 70 10/06/18 12:40 Resp 16 10/06/18 12:40 BP 121/63 10/06/18 12:40 Pulse Ox 96 10/06/18 12:40 Intake & Output 10/05/18 10/06/18 10/06/18 18:59 06:59 18:59 Intake Total 800 120 Balance 800 120 Weight 86.183 kg 85.5 kg Intake: Intake, IV Titration 800 Amount Sodium Chloride 0.9% 1, 800 000 ml @ 100 mls/hr IV . Q10H STA Rx#:[id number] Oral 120 Other: Voiding Method Toilet Toilet Toilet # Voids 3 0 - Exam PHYSICAL EXAMINATION: GENERAL: The patient is alert and oriented x3, not in any acute distress. Well developed, well nourished. HEENT: Pupils are round and equally reacting to light. EOMI. No scleral icterus. No conjunctival pallor. Normocephalic, atraumatic. No pharyngeal erythema. No thyromegaly. CARDIOVASCULAR: S1 and S2 present. No murmurs, rubs, or gallops. PULMONARY: Chest is clear to auscultation, no wheezing or crackles. ABDOMEN: Mildly distended tympanic sluggish bowel sounds no palpable organomegaly MUSCULOSKELETAL: No joint swelling or deformity. EXTREMITIES: No cyanosis, clubbing, or pedal edema. NEUROLOGICAL: Gross neurological examination did not reveal any focal deficits. SKIN: No rashes. - Labs CBC & Chem 7: 10/06/18 06:35 10/06/18 06:35 Labs: Abnormal Lab Results - Last 24 Hours (Table) 10/05/18 10/05/18 10/05/18 Range/Units 13:50 13:50 13:50 WBC 10.9 H (3.8-10.6) k/uL Hgb 11.1 L (11.4-16.0) gm/dL Neutrophils # 8.5 H (1.3-7.7) k/uL Potassium (3.5-5.1) mmol/L Creatinine 1.14 H (0.52-1.04) mg/dL Glucose 103 H (74-99) mg/dL Troponin I 0.061 H* (0.000-0.034) ng/mL Amylase 123 H (30-110) U/L Urine Blood (Negative) U Benzodiazepines Scrn (NotDetected) U Marijuana (THC) Screen (NotDetected) 10/05/18 10/05/18 10/05/18 Range/Units 13:50 17:47 19:37 WBC (3.8-10.6) k/uL Hgb (11.4-16.0) gm/dL Neutrophils # (1.3-7.7) k/uL Potassium (3.5-5.1) mmol/L Creatinine (0.52-1.04) mg/dL Glucose (74-99) mg/dL Troponin I 0.062 H* (0.000-0.034) ng/mL Amylase (30-110) U/L Urine Blood Trace H (Negative) U Benzodiazepines Scrn Detected H (NotDetected) U Marijuana (THC) Screen Detected H (NotDetected) 10/06/18 10/06/18 10/06/18 Range/Units 02:18 06:35 06:35 WBC (3.8-10.6) k/uL Hgb 10.9 L (11.4-16.0) gm/dL Neutrophils # (1.3-7.7) k/uL Potassium 3.4 L (3.5-5.1) mmol/L Creatinine (0.52-1.04) mg/dL Glucose 108 H (74-99) mg/dL Troponin I 0.053 H* (0.000-0.034) ng/mL Amylase (30-110) U/L Urine Blood (Negative) U Benzodiazepines Scrn (NotDetected) U Marijuana (THC) Screen (NotDetected) Assessment and Plan Plan: -Chest pain with intermediate troponin level. Patient had cardiac catheterization on 10/03/2018 showed moderate lesion in the circumflex. No evidence of significant obstruction. Thought to be due to stress-induced cardiomyopathy. EF was within normal limits. Troponin level is lower than previous admission. Epigastric chest pain could be related to GI related. continue with medicalk management with ASA, stains and BB. Nathaniel related to peptic ulcer disease or bowel obstruction patient assessed for nausea vomiting. Uncontrolled hypertension due to nausea Hypothyroidism History of renal cell carcinoma status post left nephrectomy about 1 year ago Anxiety and depression GERD Chronic low back pain History of migraine headache History of diverticulosis Previous history of smoking GI and DVT prophylaxis.
--- NOTE | 2018-10-06 14:13 | XR ---
EXAMINATION TYPE: XR abdomen 2V DATE OF EXAM: 10/06/2018 12:12 PM CLINICAL HISTORY: Nausea and vomiting TECHNIQUE: Single supine KUB image of the abdomen is obtained. COMPARISON: 08/03/2017. FINDINGS: Dextroscoliosis of the lumbar spine appears rotatory with moderate to severe multilevel deg enerative disc disease and surgical change of the lumbosacral junction on the right. Cardiomediastina l silhouette is enlarged. Lung bases are well aerated. Possible surgical sutures in the left paracent ral mid abdomen versus small vessel atherosclerosis. Mild degree colonic fecal stasis. No dilated lar ge or small bowel. No gross evidence of pneumoperitoneum. IMPRESSION: Mild degree colonic fecal stasis in an overall nonobstructive bowel gas pattern.
[2018-10-06] MEDS: ATORVASTATIN 20 MG TAB PO SCH (21:00)
[2018-10-07] MEDS: ONDANSETRON 4 MG/2 ML VIAL IVP PRN ×3 (04:42→16:04)
[2018-10-07] MEDS: LEVOTHYROXINE 125 MCG TAB PO SCH (06:36)
[2018-10-07 08:00] LABS: HCT 36.5 % (34.0-46.0); HGB 11.8 gm/dL (11.4-16.0); MCH 28.5 pg (25.0-35.0); MCHC 32.4 g/dL (31.0-37.0); MCV 87.9 fL (80.0-100.0); Mean Platelet Volume 7.3; Platelet Count 318 k/uL (150-450); RBC 4.15 m/uL (3.80-5.40); RDW 14.3 % (11.5-15.5); WBC 8.7 k/uL (3.8-10.6)
[2018-10-07 08:19] LABS: Calcium 9.4 mg/dL (8.4-10.2); Potassium 3.9 mmol/L (3.5-5.1)
[2018-10-07] MEDS: METOPROLOL SUCCINATE (ER) 25 MG TAB.ER.24H PO SCH (09:09)
[2018-10-07] MEDS: MULTIVITAMINS, THERA 1 EACH TAB PO SCH (09:10)
[2018-10-07] MEDS: CITALOPRAM HYDROBROMIDE 20 MG TAB PO SCH (09:12)
[2018-10-07] MEDS: PANTOPRAZOLE 40 MG TABLET PO SCH ×2 (09:12→20:53)
[2018-10-07] MEDS: LOSARTAN 25 MG TAB PO SCH (09:12)
[2018-10-07] MEDS: ASPIRIN 325 MG TAB PO SCH (09:12)
[2018-10-07] MEDS: HEPARIN SODIUM,PORCINE 5,000 UNIT/ML 1 ML VIAL SQ SCH ×3 (09:13→23:53)
[2018-10-07] MEDS ORDERED: WATER FOR INJECTION, STERILE 10 ML IV ONE (12:19)
[2018-10-07] MEDS: LORazepam 2 MG/ML INJ IV PRN ×2 (12:22→20:53)
[2018-10-07] MEDS ORDERED: NA PHOS,M-B/NA PHOS,DI-BA 133 ML ENEMA RECTAL ONE (13:28)
--- NOTE | 2018-10-07 13:38 | P.CONS ---
History of Present Illness - Reason for Consult Consult date: 10/07/18 Nausea vomiting gastritis Requesting physician: Kathi Pozo - Chief Complaint Nausea vomiting - History of Present Illness 63-year-old female with a history of GERD, hypertension depression renal cell carcinoma status post nephrectomy 1 year ago, migraines, hypothyroidism admitted with epigastric chest pain nausea vomiting. No fever chills hematemesis hematochezia or melena. Recently underwent a heart catheterization with the past week revealed a moderate lesion in the circumflex no evidence of significant obstruction. Symptoms thought to be due to stress-induced cardiomyopathy EF within normal limits. Stress test normal. Home medications include but not limited to Zofran, Xanax, Prilosec. Troponin 0.05-0.06. BUN 9. Creatinine 0.9. LFTs lipase within normal limits. Abdominal films show moderate constipation. White count 8.7. Hemoglobin 11.8. Platelets 318. Ultrasound abdomen 10/03/2018 liver hemangioma 1.3 cm. Right kidney cyst. CBD 0.6 cm. Colonoscopy January 2017 low-grade internal hemorrhoids no evidence of diverticulosis, hepatic flexure polypectomy. Review of Systems Constitutional: Denies fever, chills, sweats, weight gain, or loss. HEENT: Negative for migraines, blurred vision or loss, earaches, drainage, tinnitus, oral mucosal lesions, dysphagia, or odynophagia. CARDIAC: Positive for chest pain, denies arrhythmias, or palpitation. RESPIRATORY: Negative for shortness of breath, hemoptysis, cough, or sputum production. GI: See HPI for pertinent findings. : Negative for hematuria, urgency, frequency, polyuria, or dysuria. GYNc: Negative vaginal discharge. MUSCULOSKELETAL: Negative for muscle aches, swelling, arthritis, and arthralgias. NEUROLOGIC: Negative for stroke or TIA. ENDOCRINE: Negative for thyroid problems. SKIN: Negative for rash or itching. PSYCHIATRIC: Negative history for depression and anxiety Past Medical History Past Medical History: Cancer, Chest Pain / Angina, GERD/Reflux, Hypertension, Myocardial Infarction ([place]), Pneumonia, Thyroid Disorder Additional Past Medical History / Comment(s): Recent upper respiratory infection, "2012 electrical heart attack", PUD, hypothyroid, low back pain, past migraines, lt foot fx with surgery, rib fx, diverticulosis dx/benign polyp. stress test 02-17-17, lt kidney ca(sx) Last Myocardial Infarction Date:: 2012 History of Any Multi-Drug Resistant Organisms: None Reported Past Surgical History: Back Surgery, Heart Catheterization, Orthopedic Surgery, Tonsillectomy, Tubal Ligation Additional Past Surgical History / Comment(s): 2012 cardiac cath-normal, 01/11/17 colonoscopy/benign polypectomy, ORIF LT FT, back x2, "lt NEPHRECTOMY d/t cancer". 09/30-heart cath-clear. Past Anesthesia/Blood Transfusion Reactions: No Reported Reaction Additional Past Anesthesia/Blood Transfusion Reaction / Comm: no hx blood transfusion Smoking Status: Former smoker - Past Family History Mother Family Medical History: No Reported History Additional Family Medical History / Comment(s): Mother was healthy and lived to be 92 yrs. old. Father History Unknown: Yes Family Medical History: No Reported History Medications and Allergies Home Medications Medication Instructions Recorded Confirmed Type ALPRAZolam [Xanax] 0.5 mg PO TID PRN 07/08/17 10/05/18 History Citalopram Hydrobromide [CeleXA] 40 mg PO DAILY 07/08/17 10/05/18 History Ergocalciferol (Vitamin D2) 50,000 unit PO QMONTH 05/25/18 10/05/18 History [Drisdol] Mirabegron [Myrbetriq] 25 mg PO DAILY 05/25/18 10/05/18 History Ondansetron Odt [Zofran ODT] 4 mg PO Q8HR PRN 05/25/18 10/05/18 History Levothyroxine Sodium [Synthroid] 125 mcg PO DAILY 09/30/18 10/05/18 History Multivitamins, Thera [Multivitamin 1 tab PO DAILY 09/30/18 10/05/18 History (formulary)] Atorvastatin [Lipitor] 20 mg PO HS #30 tab 10/03/18 10/05/18 Rx Isosorbide Mononitrate ER [Imdur] 30 mg PO DAILY #30 tab.er.24h 10/03/18 10/05/18 Rx Losartan [Cozaar] 25 mg PO DAILY #30 tab 10/03/18 10/05/18 Rx Metoprolol Succinate (ER) [Toprol 75 mg PO DAILY #30 tab.er.24h 10/03/18 10/05/18 Rx XL] Omeprazole [PriLOSEC] 40 mg PO AC-BRKFST #14 capsule. 10/03/18 10/05/18 Rx Allergies Allergy/AdvReac Type Severity Reaction Status Date / Time Sulfa (Sulfonamide Allergy Rash/Hives Verified 10/05/18 13:56 Antibiotics) Physical Exam Vitals: Vital Signs Temp Pulse Pulse Resp BP BP Pulse Ox 10/07/18 09:10 98.2 F 77 20 151/84 96 10/07/18 00:00 75 74 18 10/06/18 23:00 98.2 F 74 18 126/83 97 10/06/18 21:11 73 16 10/06/18 20:00 98.7 F 71 18 125/77 96 10/06/18 17:30 98.2 F 73 16 146/91 98 10/06/18 16:50 75 16 140/91 96 Intake and Output 10/06/18 10/07/18 10/07/18 22:59 06:59 14:59 Intake Total 200 Balance 200 Intake: Oral 200 Other: Voiding Method Toilet Toilet # Voids 1 1 2 General appearance: The patient is alert, oriented, in no acute distress. HET: Head is normocephalic and atraumatic. Pupils are equal and reactive. Oropharynx is clear without lesions. Neck: Supple without lymphadenopathy. Trachea midline. Heart: S1 S2. Regular rate and rhythm. Lungs: No crackles or wheezes are heard. Abdomen: Soft, mild midepigastric tenderness, nondistended with bowel sounds. No peritoneal signs. No palpable organomegaly or masses. Extremities: Normal skin color and turgor. No cyanosis, rash, ulceration, clubbing, or edema. Radial and pedal pulses are 2/4 bilaterally. Neurological: No focal deficits. Strength and sensation are grossly intact. Results CBC & Chem 7: 10/07/18 07:20 10/07/18 07:20 Abdominal x-ray: report reviewed (Dr. Bright) US - abdomen: report reviewed (Dr. Bright) Assessment and Plan (1) Epigastric abdominal pain Narrative/Plan: 63-year-old female with a history of GERD, renal cell carcinoma, nephrectomy 1 year ago, anxiety, recent heart catheterization for chest pain status post heart catheterization 10/03/2018 showed moderate lesion in the circumflex no evidence of significant obstruction thought to be due to stress-induced cardio aphthae with a normal EF. She presents with epigastric abdominal pain chest pain nausea vomiting without fever chills or bleeding. Possible underlying GERD exacerbation possible peptic ulcer disease. Abdominal films reported moderate stool stasis consistent with underlying constipation. Current Visit: Yes Status: Acute Code(s): R10.13 - EPIGASTRIC PAIN SNOMED Code(s): 82039182 (2) Nausea & vomiting Current Visit: Yes Status: Acute Code(s): R11.2 - NAUSEA WITH VOMITING, UNSPECIFIED SNOMED Code(s): 44480027 (3) Constipation Current Visit: Yes Status: Acute Code(s): K59.00 - CONSTIPATION, UNSPECIFIED SNOMED Code(s): 31886224 (4) Status post left heart catheterization Current Visit: Yes Status: Acute Code(s): Z98.890 - OTHER SPECIFIED POSTPROCEDURAL STATES SNOMED Code(s): 22070054128076 (5) Chest pain Current Visit: Yes Status: Acute Code(s): R07.9 - CHEST PAIN, UNSPECIFIED SNOMED Code(s): 15667241 (6) Colon, diverticulosis Current Visit: Yes Status: Acute Code(s): K57.30 - DVRTCLOS OF LG INT W/O PERFORATION OR ABSCESS W/O BLEEDING SNOMED Code(s): 470144320 (7) History of renal cell carcinoma Current Visit: Yes Status: Acute Code(s): Z85.528 - PERSONAL HISTORY OF OTHER MALIGNANT NEOPLASM OF KIDNEY SNOMED Code(s): 226108676 (8) History of nephrectomy Current Visit: Yes Status: Acute Code(s): Z90.5 - ACQUIRED ABSENCE OF KIDNEY SNOMED Code(s): 29794007106327 (9) History of anxiety Current Visit: Yes Status: Acute Code(s): Z86.59 - PERSONAL HISTORY OF OTHER MENTAL AND BEHAVIORAL DISORDERS SNOMED Code(s): 906301437 Plan: 1. Senokot-S 2 tabs twice a day. Fleet enema 1. Outpatient EGD discussed scheduled for 10/10/[address] Bright. Advise Protonix 40 mg daily on discharge. Thank you for this kind referral and the opportunity to participate in the care of your patient. This consultation was discussed with Dr. Bright. The impression and plan of care have been directed as dictated.
[2018-10-07] MEDS: SENNOSIDES-DOCUSATE SODIUM 1 EACH TAB PO SCH ×2 (14:45→21:38)
--- NOTE | 2018-10-07 15:16 | P.DS ---
Providers Date of admission: 10/05/18 16:21 Expected date of discharge: 10/07/18 Attending physician: Melany Patricio Consults: 10/06/18 11:28 Consult Physician Routine Consulting Provider: Roseline Bright Consult Reason/Comments: N/V, gastritis Do you want consulting provider notified?: Yes Primary care physician: [facility] Course: Final Diagnosis Chest pain with indeterminate troponin levels. Patient had just underwent cardiac catheterization on 10/03/2018 which showed a moderate lesion in the circumflex. No evidence of significant obstruction. Thought to be due to stress-induced cardiomyopathy. EF is within normal limits Epigastric chest pain: Could be GI related. Continue with medication management with aspirin, statins, and beta blockers. Possibly related to peptic ulcer disease or bowel obstruction Nausea and vomiting Uncontrolled hypertension due to nausea Hypothyroidism [place] history of renal cell carcinoma status post left nephrectomy proximally one year ago Anxiety and depression Gastroesophageal reflux disease Chronic low back pain History of migraine headaches History of diverticulosis Previous history of smoking GI and DVT prophylaxis Discharge disposition Patient is being discharged in a stable condition with a guarded prognosis to home. Patient will follow-up outpatient with GI at [facility] for an EGD on Wednesday. History of present illness This is a 63-year-old female that was admitted for chest pain mainly in the epigastric region associated with severe nausea and vomiting. Patient was recently discharged a few days prior to this admission and underwent cardiac catheterization. During this admission GI was consulted in the plan is to have an EGD on Wednesday at [facility] in the outpatient setting. Patient states that she is having some mild nausea and had a small bowel movement this morning. X-ray of the abdomen shows a large amount of stool which is most likely causing the abdominal discomfort and nausea. Patient will be receiving an enema along with Senokot prior to discharge. Patient denies any chest pain, shortness of breath, or palpitations at this time. Patient is still having some mild nausea at times but has lessened in severity. Patient is not vomiting at this time. Patient remains afebrile. Patient is currently stable with some improvement. On exam vital signs are stable. Blood pressure is 133/86, pulse is 64, respirations are 16, temp is 98.4F, oxygen saturation is 96% on room air. Cardio S1 and S2 are present. Respiratory is clear to auscultation with no wheezes or crackles noted. Abdomen is soft, mildly distended, mild tenderness of the lower abdomen upon deep palpation. Nervous system shows no focal deficits. Please refer to medication reconciliation sheet for a list of medications. Patient Condition at Discharge: Fair Plan - Discharge Summary New Discharge Prescriptions: New Sennosides-Docusate Sodium [Senokot-S] 2 each PO BID #8 tab Ondansetron [Zofran] 4 mg PO Q8HR PRN #9 tab PRN Reason: Nausea Continue Citalopram Hydrobromide [CeleXA] 40 mg PO DAILY ALPRAZolam [Xanax] 0.5 mg PO TID PRN PRN Reason: Anxiety Mirabegron [Myrbetriq] 25 mg PO DAILY Ergocalciferol (Vitamin D2) [Drisdol] 50,000 unit PO QMONTH Multivitamins, Thera [Multivitamin (formulary)] 1 tab PO DAILY Levothyroxine Sodium [Synthroid] 125 mcg PO DAILY Losartan [Cozaar] 25 mg PO DAILY #30 tab Isosorbide Mononitrate ER [Imdur] 30 mg PO DAILY #30 tab.er.24h Atorvastatin [Lipitor] 20 mg PO HS #30 tab Metoprolol Succinate (ER) [Toprol XL] 75 mg PO DAILY #30 tab.er.24h Omeprazole [PriLOSEC] 40 mg PO AC-BRKFST #14 capsule.dr Discontinued Ondansetron Odt [Zofran ODT] 4 mg PO Q8HR PRN PRN Reason: Nausea Discharge Medication List ALPRAZolam [Xanax] 0.5 mg PO TID PRN 07/08/17 [History] Citalopram Hydrobromide [CeleXA] 40 mg PO DAILY 07/08/17 [History] Ergocalciferol (Vitamin D2) [Drisdol] 50,000 unit PO QMONTH 05/25/18 [History] Mirabegron [Myrbetriq] 25 mg PO DAILY 05/25/18 [History] Levothyroxine Sodium [Synthroid] 125 mcg PO DAILY 09/30/18 [History] Multivitamins, Thera [Multivitamin (formulary)] 1 tab PO DAILY 09/30/18 [History] Atorvastatin [Lipitor] 20 mg PO HS #30 tab 10/03/18 [Rx] Isosorbide Mononitrate ER [Imdur] 30 mg PO DAILY #30 tab.er.24h 10/03/18 [Rx] Losartan [Cozaar] 25 mg PO DAILY #30 tab 10/03/18 [Rx] Metoprolol Succinate (ER) [Toprol XL] 75 mg PO DAILY #30 tab.er.24h 10/03/18 [Rx] Omeprazole [PriLOSEC] 40 mg PO AC-BRKFST #14 capsule.dr 10/07/18 [Rx] Ondansetron [Zofran] 4 mg PO Q8HR PRN #9 tab 10/07/18 [Rx] Sennosides-Docusate Sodium [Senokot-S] 2 each PO BID #8 tab 10/07/18 [Rx] Follow up Appointment(s)/Referral(s): Emdar Holder III, MD [Primary Care Provider] - 1-2 days Roseline Bright MD [STAFF PHYSICIAN] - 3 Days Activity/Diet/Wound Care/Special Instructions: Outpatient EGD Dr. Bright Wednesday October 10, 2018 at [facility] Presurgical screening will notify patient with additional instructions and arrival time. Activity limited until follow-up continue current diet, clear liquids, follow instructions that will be provided for EGD prep for Wednesday. Follow-up with primary care provider this week. Discharge Disposition: HOME SELF-CARE
[2018-10-07] MEDS: ATORVASTATIN 20 MG TAB PO SCH (20:53)
[2018-10-08] MEDS: LEVOTHYROXINE 125 MCG TAB PO SCH (06:50)
[2018-10-08] MEDS ORDERED: ALPRAZolam 0.5 MG TAB PO PRN (07:22)
[2018-10-08] MEDS ORDERED: ONDANSETRON 4 MG TAB PO PRN (07:23)
[2018-10-08] MEDS: HEPARIN SODIUM,PORCINE 5,000 UNIT/ML 1 ML VIAL SQ SCH (07:59)
[2018-10-08] MEDS: METOPROLOL SUCCINATE (ER) 25 MG TAB.ER.24H PO SCH (07:59)
[2018-10-08] MEDS: ASPIRIN 325 MG TAB PO SCH (07:59)
[2018-10-08] MEDS: LOSARTAN 25 MG TAB PO SCH (07:59)
[2018-10-08] MEDS: MULTIVITAMINS, THERA 1 EACH TAB PO SCH (08:02)
[2018-10-08] MEDS: CITALOPRAM HYDROBROMIDE 20 MG TAB PO SCH (08:02)
[2018-10-08] MEDS: PANTOPRAZOLE 40 MG TABLET PO SCH (08:02)
[2018-10-08 08:08] VITALS: RESP 16
--- NOTE | 2018-10-08 12:37 | P.DS ---
Providers Date of admission: 10/05/18 16:21 Attending physician: Melany Patricio Consults: 10/06/18 11:28 Consult Physician Routine Consulting Provider: Roseline Bright Consult Reason/Comments: N/V, gastritis Do you want consulting provider notified?: Yes Primary care physician: [facility] Course: Patient ended up staying in the hospital because of continued nausea and rectal prolapse after an enema. Patient is doing much better no nausea vomiting.. Patient will be discharged today. His operative dictation from minus fraction from yesterday for further details. PHYSICAL EXAMINATION: GENERAL: The patient is alert and oriented x3, not in any acute distress. Well developed, well nourished. HEENT: Pupils are round and equally reacting to light. EOMI. No scleral icterus. No conjunctival pallor. Normocephalic, atraumatic. No pharyngeal erythema. No thyromegaly. CARDIOVASCULAR: S1 and S2 present. No murmurs, rubs, or gallops. PULMONARY: Chest is clear to auscultation, no wheezing or crackles. ABDOMEN: Soft, nontender, nondistended, normoactive bowel sounds. No palpable organomegaly. MUSCULOSKELETAL: No joint swelling or deformity. EXTREMITIES: No cyanosis, clubbing, or pedal edema. NEUROLOGICAL: Gross neurological examination did not reveal any focal deficits. SKIN: No rashes. Patient Condition at Discharge: Fair Plan - Discharge Summary New Discharge Prescriptions: New Sennosides-Docusate Sodium [Senokot-S] 2 each PO BID #8 tab Ondansetron [Zofran] 4 mg PO Q8HR PRN #9 tab PRN Reason: Nausea Continue Citalopram Hydrobromide [CeleXA] 40 mg PO DAILY ALPRAZolam [Xanax] 0.5 mg PO TID PRN PRN Reason: Anxiety Mirabegron [Myrbetriq] 25 mg PO DAILY Ergocalciferol (Vitamin D2) [Drisdol] 50,000 unit PO QMONTH Multivitamins, Thera [Multivitamin (formulary)] 1 tab PO DAILY Levothyroxine Sodium [Synthroid] 125 mcg PO DAILY Losartan [Cozaar] 25 mg PO DAILY #30 tab Isosorbide Mononitrate ER [Imdur] 30 mg PO DAILY #30 tab.er.24h Atorvastatin [Lipitor] 20 mg PO HS #30 tab Metoprolol Succinate (ER) [Toprol XL] 75 mg PO DAILY #30 tab.er.24h Omeprazole [PriLOSEC] 40 mg PO AC-BRKFST #14 capsule. Discontinued Ondansetron Odt [Zofran ODT] 4 mg PO Q8HR PRN PRN Reason: Nausea Discharge Medication List ALPRAZolam [Xanax] 0.5 mg PO TID PRN 07/08/17 [History] Citalopram Hydrobromide [CeleXA] 40 mg PO DAILY 07/08/17 [History] Ergocalciferol (Vitamin D2) [Drisdol] 50,000 unit PO QMONTH 05/25/18 [History] Mirabegron [Myrbetriq] 25 mg PO DAILY 05/25/18 [History] Levothyroxine Sodium [Synthroid] 125 mcg PO DAILY 09/30/18 [History] Multivitamins, Thera [Multivitamin (formulary)] 1 tab PO DAILY 09/30/18 [History] Atorvastatin [Lipitor] 20 mg PO HS #30 tab 10/03/18 [Rx] Isosorbide Mononitrate ER [Imdur] 30 mg PO DAILY #30 tab.er.24h 10/03/18 [Rx] Losartan [Cozaar] 25 mg PO DAILY #30 tab 10/03/18 [Rx] Metoprolol Succinate (ER) [Toprol XL] 75 mg PO DAILY #30 tab.er.24h 10/03/18 [Rx] Omeprazole [PriLOSEC] 40 mg PO AC-BRKFST #14 capsule. 10/07/18 [Rx] Ondansetron [Zofran] 4 mg PO Q8HR PRN #9 tab 10/07/18 [Rx] Sennosides-Docusate Sodium [Senokot-S] 2 each PO BID #8 tab 10/07/18 [Rx] Follow up Appointment(s)/Referral(s): Edmar Holder III, MD [Primary Care Provider] - 10/11/18 9:30 am Roseline Bright MD [STAFF PHYSICIAN] - 10/10/18 11:15 am ([facility] at 1115am for EGD with physician. ) Activity/Diet/Wound Care/Special Instructions: [place]. Bright [place] [facility] [place] limited until follow-up continue current diet, clear liquids advance as tolerated. , follow instructions that will be provided for EGD prep for Wednesday( no aspirin until EGD. Nothing to eat or drink after midnight on 10/09/2018 prior to your procedure. may continue to take home meds otherwise. ON the day of your procedure you can take your metoprolol and cozaar with a small sip of water. Follow-up with primary care provider this week appointment has been made for you. Call physician with any questions comments concerns worsening returning symptoms fever 101.1 or higher, pain not controlled by medications prescribed, not tolerating a diet or fluids. Discharge Disposition: HOME SELF-CARE
[2018-10-08 12:59] VITALS: BP 139/77; PULSE 71; TEMP 97.9
== END 2018-10-08 13:43 | disposition home or self-care (01) ==
LOC: EC 13:33 → 3SCARD 16:21 → 6PED 10-06 17:23
PROVIDERS: ADMIT Internal Medicine; ATTEND Internal Medicine
DX: R07.89 Other chest pain (principal); R77.8 Other specified abnormalities of plasma proteins; R10.13 Epigastric pain; R11.2 Nausea with vomiting, unspecified; K62.3 Rectal prolapse; R06.02 Shortness of breath; R61 Generalized hyperhidrosis; I10 Essential (primary) hypertension; F32.9 Major depressive disorder, single episode, unspecified; E03.9 Hypothyroidism, unspecified; D18.03 Hemangioma of intra-abdominal structures; K21.9 Gastro-esophageal reflux disease without esophagitis; K57.90 Diverticulosis of intestine, part unspecified, without perforation or abscess without bleeding; F41.9 Anxiety disorder, unspecified; G43.909 Migraine, unspecified, not intractable, without status migrainosus; I25.10 Atherosclerotic heart disease of native coronary artery without angina pectoris; K59.00 Constipation, unspecified; N28.1 Cyst of kidney, acquired; E66.9 Obesity, unspecified; Z68.29 Body mass index [BMI] 29.0-29.9, adult; G89.29 Other chronic pain; M54.5 Low back pain; K64.8 Other hemorrhoids; Z79.890 Hormone replacement therapy; Z79.899 Other long term (current) drug therapy; Z88.2 Allergy status to sulfonamides; Z87.891 Personal history of nicotine dependence; Z90.5 Acquired absence of kidney; Z85.528 Personal history of other malignant neoplasm of kidney; Z87.11 Personal history of peptic ulcer disease; I25.2 Old myocardial infarction; Z86.010 Personal history of colon polyps; Z87.01 Personal history of pneumonia (recurrent)
CPT/HCPCS: 96361 ×3; 96365; 96366; 96372 ×3; 96375 ×2; 96376 ×3; 99285; 36415; 93005; 83880; 80061; 80053; 80048 ×2; 82150; 82550; 82553; 83690; 83735; 84484 ×2; 85025 ×2; 85027; 85610; 85730; 81001; 80306; 71046; 74019; G0378 ×4; J2060 ×3; J2270; J1644 ×3; J3480; J2405 ×3

== ENCOUNTER → 2019-01-31 | Outpatient (CLI) | payer OTHER ==
[2019-01-31 16:21] LABS: African American GFR (CKD) 62.3 (60.0-200.0); Chol/HDL Ratio 4.64; Non-African American GFR(CKD) 53.8 (60.0-200.0)
== END | disposition home or self-care (01) ==
LOC: LABWHC1 10:00
PROVIDERS: ATTEND Internal Medicine Cardiovascular Disease
DX: C64.9 Malignant neoplasm of unspecified kidney, except renal pelvis (principal); E78.2 Mixed hyperlipidemia
CPT/HCPCS: 36415; 80061; 82565; 84450; 84460; 84520

== ENCOUNTER → 2019-02-04 | Outpatient (CLI) | payer OTHER ==
--- NOTE | 2019-02-04 23:10 | MR ---
EXAMINATION TYPE: MR abdomen wo/w con DATE OF EXAM: 02/04/2019 COMPARISON: 09/26/2018 HISTORY: Abnormal MR 09-26-18, hx renal ca CONTRAST: Standard multiplanar, multisequence MRI departmental protocol utilizing 7.5 mL intravenous Gadavist g adolinium contrast. FINDINGS: Liver has normal size and contour. The bile ducts are not dilated. Spleen is intact. Pancre atic duct appears normal. I see no evidence of pancreatic mass. Stomach appears intact. Left kidney is absent. Right kidney shows to centimeter cortical cyst in the anterior right kidney. T here is nonenhancing intermediate signal 2.5 cm focus lower pole right kidney that is probably comple x cyst. There is no hydronephrosis. I see no sign of retroperitoneal adenopathy. There is no evidence of a bowel obstruction. There is no sign of ascites. There are 3 small high signal lesions on the T2 images in the posterior right lobe of the liver that are enhancing on the delayed images and consistent with hemangiomas. the largest measures 1.5 cm. The re is metal artifact from posterior lumbar spine surgery. I see no pathologic pancreatic enhancement. Gallbladder appears normal. IMPRESSION: Nonenhancing atypical right renal cyst unchanged. No evidence of pancreatic mass. Multiple hemangioma s in the posterior liver unchanged. Normal gallbladder. No evidence of metastatic disease. No sign of recurrent tumor.
== END | disposition home or self-care (01) ==
LOC: RADMRIMAIN 11:21
PROVIDERS: ATTEND Urology
DX: N28.1 Cyst of kidney, acquired (principal); D18.03 Hemangioma of intra-abdominal structures; C64.9 Malignant neoplasm of unspecified kidney, except renal pelvis
CPT/HCPCS: 74183

== ENCOUNTER → 2019-02-06 | Outpatient (CLI) | payer OTHER | END | disposition home or self-care (01) | LOC: LABWHC1 12:22 | PROVIDERS: ATTEND Urology | DX: C64.9 Malignant neoplasm of unspecified kidney, except renal pelvis (principal) | CPT/HCPCS: 36415; 82565; 84520 ==

== ENCOUNTER → 2019-08-18 | Outpatient (CLI) | payer OTHER ==
--- NOTE | 2019-08-18 17:05 | MR ---
MR abdomen without and with contrast HISTORY: Kidney cancer Multiplanar multisequence and postcontrast images obtained through the abdomen following 7.5 cc Gadav ist IV Correlation to prior MR abdomen 02/04/2019 The liver shows a stable appearance, probable hemangiomas present posterior. Gallbladder is unchanged . Spleen shows a stable appearance. There is a spinal curvature, degenerative disc change in the visu alized spine. The left kidney is absent. Cystic change associated with the right kidney is again noted and stable. There is no retroperitoneal adenopathy. Adrenal glands are stable. Pancreas is showing prominent duct which appears more normal in size on postcontrast images and T2 images. Metallic artifact is again noted in the lumbar spine region. Lung bases are clear. Aorta shows normal caliber. IMPRESSION: Essentially stable exam.
== END | disposition home or self-care (01) ==
LOC: RADMRIMAIN 13:58
PROVIDERS: ATTEND Urology
DX: C64.9 Malignant neoplasm of unspecified kidney, except renal pelvis (principal)
CPT/HCPCS: 74183; A9585

== ENCOUNTER → 2019-08-22 | Outpatient (CLI) | payer OTHER ==
[2019-08-22 15:37] LABS: HGB 12.8 gm/dL (11.4-16.0); MCH 29.4 pg (25.0-35.0); MCHC 32.7 g/dL (31.0-37.0); MCV 89.8 fL (80.0-100.0); Mean Platelet Volume 7.7; Platelet Count 289 k/uL (150-450); RBC 4.35 m/uL (3.80-5.40); RDW 13.5 % (11.5-15.5); WBC 7.4 k/uL (3.8-10.6)
[2019-08-23 01:21] LABS: African American GFR (CKD) 55.7 (60.0-200.0); Albumin 4.1 g/dL (3.80-4.90); Albumin/Globulin Ratio 1.46 (1.60-3.17); Anion Gap 7.4 mmol/L (4.00-12.00); BUN/Creat Ratio 16.67 Ratio (12.00-20.00); Calcium 9.3 mg/dL (8.7-10.3); Carbon Dioxide 24.6 mmol/L (21.6-31.8); Globulin 2.8 g/dL (1.6-3.3); Non-African American GFR(CKD) 48.1 (60.0-200.0); Potassium 4.4 mmol/L (3.5-5.5); Total Bilirubin 0.4 mg/dL (0.3-1.2); Total Protein 6.9 g/dL (6.2-8.2)
== END | disposition home or self-care (01) ==
LOC: LABWHC1 13:32
PROVIDERS: ATTEND Urology
DX: C64.9 Malignant neoplasm of unspecified kidney, except renal pelvis (principal)
CPT/HCPCS: 36415; 80053; 85027

== ENCOUNTER 2020-01-11 09:12 | Emergency (ER) | payer OTHER ==
[2020-01-11 09:18] VITALS: RESP 18
[2020-01-11] MEDS ORDERED: MORPHINE SULFATE 4 MG/ML SYRINGE IM STA (09:46)
--- NOTE | 2020-01-11 10:00 | ED ---
General Adult HPI - General Chief complaint: Recheck/Abnormal Lab/Rx Stated complaint: abd/sob Time Seen by Provider: 01/11/20 09:31 Source: patient, RN notes reviewed, old records reviewed Mode of arrival: ambulatory Limitations: no limitations - History of Present Illness Initial comments: 64-year-old female presented for evaluation of lateral chest and rib pain. Patient states she had a coughing episode and developed sudden onset right-sided rib pain, felt a popping sensation in this location. She has had continued pain since this episode. She reports this is right lateral chest and flank. She denies vomiting. Denies fever. She has had only a mild cough. No central chest pain. - Related Data Home Medications Medication Instructions Recorded Confirmed ALPRAZolam [Xanax] 0.5 mg PO TID PRN 07/08/17 10/05/18 Citalopram Hydrobromide [CeleXA] 40 mg PO DAILY 07/08/17 10/05/18 Ergocalciferol (Vitamin D2) 50,000 unit PO QMONTH 05/25/18 10/05/18 [Drisdol] Mirabegron [Myrbetriq] 25 mg PO DAILY 05/25/18 10/05/18 Levothyroxine Sodium [Synthroid] 125 mcg PO DAILY 09/30/18 10/05/18 Multivitamins, Thera [Multivitamin 1 tab PO DAILY 09/30/18 10/05/18 (formulary)] Previous Rx's Medication Instructions Recorded Atorvastatin [Lipitor] 20 mg PO HS #30 tab 10/03/18 Isosorbide Mononitrate ER [Imdur] 30 mg PO DAILY #30 tab.er.24h 10/03/18 Losartan [Cozaar] 25 mg PO DAILY #30 tab 10/03/18 Metoprolol Succinate (ER) [Toprol 75 mg PO DAILY #30 tab.er.24h 10/03/18 XL] Omeprazole [PriLOSEC] 40 mg PO AIDA-SHAKA #14 capsule. 10/07/18 Ondansetron [Zofran] 4 mg PO Q8HR PRN #9 tab 10/07/18 Sennosides-Docusate Sodium 2 each PO BID #8 tab 10/07/18 [Senokot-S] HYDROcodone/APAP 5-325MG [[place] 1 tab PO Q6HR PRN #12 tab 01/11/20 5-325] Allergies Allergy/AdvReac Type Severity Reaction Status Date / Time Sulfa (Sulfonamide Allergy Rash/Hives Verified 01/11/20 09:18 Antibiotics) Review of Systems ROS Statement: Those systems with pertinent positive or pertinent negative responses have been documented in the HPI. ROS Other: All systems not noted in ROS Statement are negative. Past Medical History Past Medical History: Cancer, Chest Pain / Angina, GERD/Reflux, Hypertension, Myocardial Infarction ([place]), Pneumonia, Thyroid Disorder Additional Past Medical History / Comment(s): Recent upper respiratory infection, "2012 electrical heart attack", PUD, hypothyroid, low back pain, past migraines, lt foot fx with surgery, rib fx, diverticulosis dx/benign polyp.stres s test 02-17-17, lt kidney ca(sx) Last Myocardial Infarction Date:: 2012 History of Any Multi-Drug Resistant Organisms: None Reported Past Surgical History: Back Surgery, Heart Catheterization, Orthopedic Surgery, Tonsillectomy, Tubal Ligation Additional Past Surgical History / Comment(s): 2012 cardiac cath-normal, 01/11/17 colonoscopy/benign polypectomy, ORIF LT FT, back x2, "lt NEPHRECTOMY d/t cancer". 09/30-heart cath-clear. Past Anesthesia/Blood Transfusion Reactions: No Reported Reaction Additional Past Anesthesia/Blood Transfusion Reaction / Comment(s): no hx blood transfusion Past Psychological History: No Psychological Hx Reported Smoking Status: Former smoker Past Alcohol Use History: None Reported Past Drug Use History: Marijuana - Past Family History Mother Family Medical History: No Reported History Additional Family Medical History / Comment(s): Mother was healthy and lived to be 92 yrs. old. Father History Unknown: Yes Family Medical History: No Reported History General Exam Limitations: no limitations General appearance: alert, in no apparent distress Head exam: Present: atraumatic, normocephalic Eye exam: Present: normal appearance. Absent: PERRL, EOMI ENT exam: Present: normal exam Neck exam: Present: normal inspection. Absent: tenderness, meningismus Respiratory exam: Present: chest wall tenderness (Right lateral tenderness palpation, no crepitus). Absent: respiratory distress Cardiovascular Exam: Present: regular rate, normal rhythm GI/Abdominal exam: Present: soft. Absent: distended, tenderness Extremities exam: Present: normal inspection, normal capillary refill. Absent: pedal edema, calf tenderness Back exam: Present: normal inspection Neurological exam: Present: alert, oriented X3, CN II-XII intact. Absent: motor sensory deficit Psychiatric exam: Present: normal affect, normal mood Skin exam: Present: warm, dry, intact Course Vital Signs 01/11/20 01/11/20 09:15 11:07 Temperature 98.0 F Pulse Rate 70 57 L Respiratory 18 18 Rate Blood Pressure 141/86 116/78 O2 Sat by Pulse 97 97 Oximetry Medical Decision Making - Medical Decision Making Right lateral chest pain, right flank pain. Chest x-ray negative for displaced fracture but there is some irregularity in the cortex of the fourth and fifth rib. Additionally for flank pain given that this patient only has one kidney and did perform a CT without contrast to rule out nephrolithiasis. There is no kidney stone, no acute process in the right flank and upper abdomen to explain this patient's pain. Patient feeling better on reevaluation. She's given an incentive spirometer as well as pain control. She will be discharged home with close outpatient follow-up. - Lab Data Lab Results 01/11/20 Range/Units 09:56 Urine Color Yellow Urine Appearance Clear (Clear) Urine pH 5.5 (5.0-8.0) Ur Specific [place] 1.024 (1.001-1.035) Urine Protein 1+ H (Negative) Urine Glucose (UA) Negative (Negative) Urine Ketones Negative (Negative) Urine Blood Moderate H (Negative) Urine Nitrite Negative (Negative) Urine Bilirubin Negative (Negative) Urine Urobilinogen <2.0 (<2.0) mg/dL Ur Leukocyte Esterase Trace H (Negative) Urine RBC 10 H (0-5) /hpf Urine WBC 2 (0-5) /hpf Ur Squamous Epith Cells <1 (0-4) /hpf Urine Mucus Rare H (None) /hpf Disposition Clinical Impression: Rib fracture Disposition: HOME SELF-CARE Condition: Good Instructions (If sedation given, give patient instructions): Rib Fracture (ED) Prescriptions: HYDROcodone/APAP 5-325MG [[place] 5-325] 1 tab PO Q6HR PRN #12 tab PRN Reason: Pain Is patient prescribed a controlled substance at d/c from ED?: No Referrals: Edmar Holder III, MD [Primary Care Provider] - 1-2 days Time of Disposition: 12:29
--- NOTE | 2020-01-11 10:24 | XR ---
Chest x-ray with right RIBS HISTORY: Right rib pain Frontal chest and 5 views the right ribs. Correlation to prior chest x-ray 10/05/2018. On the oblique view there are rib contour abnormalities of the fourth and fifth ribs without evident cortical break. Degenerative disc changes are present in the visualized spine. Postop changes are pre sent in the lumbar spine. Is a marked scoliosis present in the lumbar spine. No evident airspace dise ase, pneumothorax, or pleural effusion. Cardiomediastinal silhouette, pulmonary vascularity and rakan are stable. Aorta is dense. IMPRESSION: No displaced fracture is evident, there are contour abnormalities as described. If occult fracture is suspected clinically then bone scan may be of benefit. There is scoliosis, degenerative disc disease.
[2020-01-11 11:11] LABS: Appearance,Urine Clear (Clear); Bilirubin,Urine Negative (Negative); Blood,Urine Moderate (Negative); Color,Urine Yellow; Glucose,Urine (UA) Negative (Negative); Ketones,Urine Negative (Negative); Leukocyte Esterase,Urine Trace (Negative); Mucus,Urine Rare /hpf; Nitrite,Urine Negative (Negative); PH, Urine 5.5 (5.0-8.0); Protein,Urine 1+ (Negative); RBC,Urine 10 /hpf (0-5); Specific Gravity,Urine 1.024 (1.001-1.035); Squamous Epithelial Cell,Urine <1 /hpf (0-4); Urobilinogen,Urine <2.0 mg/dL (<2.0); WBC,Urine 2 /hpf (0-5)
[2020-01-11] MEDS ORDERED: KETOROLAC 15 MG/ML 1 ML VIAL IM STA (11:23)
--- NOTE | 2020-01-11 12:06 | CT ---
EXAMINATION TYPE: CT abdomen pelvis wo con DATE OF EXAM: 01/11/2020 COMPARISON: 08/30/2018 HISTORY: 64-year-old female Right sided pain. CT DLP: 915.5 mGycm. Automated exposure control for dose reduction was used. TECHNIQUE: Contiguous axial scanning of the abdomen and pelvis without IV contrast. Coronal and sagit hardeep reconstructions performed. FINDINGS: Heart normal size without pericardial effusion. Borderline ectatic lower descending thoracic aorta 2. 6 cm. Prominent dependent areas of atelectasis and some scattered emphysematous change. No pleural ef fusion. Diffuse fold thickening along the gastric fundus and proximal body. Noncontrast appearance of the liver shows a stable 1.5 cm lesion posterior right liver lobe compatibl e with a hemangioma seen previously. Noncontrast appearance of the gallbladder, adrenal glands, spleen with hilar splenule, pancreas show no gross abnormality. Similar mild prominence to the main pancreatic duct at the level of the pancrea tic neck and body. Medial right renal cyst measuring 2.5 and 1.6 cm are unchanged. The left nephrectomy bed remains clear. Scattered moderate atherosclerotic calcifications infrarenal abdominal aorta and mild within the comm on iliac arteries. No dilated small bowel, free fluid, or free air. No mesenteric or retroperitoneal lymphadenopathy. Mild stool burden. Normal appendix. Sigmoid diverticulosis. There is a 4 cm long segment of circumfer ential wall thickening along the proximal sigmoid colon that could relate to chronic diverticulitis o r incomplete distention. Direct visualization of routine screening is not being performed. No pericol onic inflammatory change. Redundant sigmoid colon. Circumferential bladder wall thickening may relate to incomplete distention. Correlate to exclude cys titis. Uterus anteverted. Both ovaries are visualized. No abnormal fluid collection the pelvis or pel dayo lymphadenopathy. Bones: Degenerative changes of the hips. Advanced degenerative disc disease throughout the lumbar spi ne. Right-sided L5-S1 posterior lumbar fusion. IMPRESSION: 1. Diffuse fold thickening within the gastric fundus and proximal body. Correlate for possible gastr itis. 2. Sigmoid diverticulosis. There is a 4 cm long segment of circumferential wall thickening along the proximal sigmoid that could relate to chronic diverticulitis or incomplete distention. Mild nonspeci fic colitis also possible. Direct visualization recommended if routine screening is not been performe d. 3. Stable cysts within the medial right kidney. The left nephrectomy bed remains clear. No nephrolit hiasis or hydronephrosis.
[2020-01-11 12:40] VITALS: BP 117/83; PULSE 52; TEMP 97.5
== END 2020-01-11 12:56 | disposition home or self-care (01) ==
LOC: EC 09:12
DX: S22.39XA Fracture of one rib, unspecified side, initial encounter for closed fracture (principal); R07.9 Chest pain, unspecified; R10.9 Unspecified abdominal pain; E03.9 Hypothyroidism, unspecified; I25.2 Old myocardial infarction; Z79.899 Other long term (current) drug therapy; Z79.890 Hormone replacement therapy; Z88.2 Allergy status to sulfonamides; Z85.528 Personal history of other malignant neoplasm of kidney; Z87.891 Personal history of nicotine dependence; Z98.51 Tubal ligation status; Z90.5 Acquired absence of kidney; X58.XXXA Exposure to other specified factors, initial encounter
CPT/HCPCS: 81001; 71101; 74176; 99285; 96372 ×2; J2270; J1885

== ENCOUNTER → 2020-06-12 | Outpatient (CLI) | payer OTHER ==
[2020-06-12 15:59] LABS: Basophils # (A) 0.04 X 10*3/uL (0.00-0.10); Basophils % (A) 0.6 %; Eosinophils # (A) 0.13 X 10*3/uL (0.04-0.35); Eosinophils % (A) 1.8 %; HCT 40.6 % (37.2-46.3); HGB 13.2 g/dL (12.0-15.0); Lymphocytes # (A) 1.63 X 10*3/uL (0.90-5.00); Lymphocytes % (A) 23.1 %; MCH 28.8 pg (27.0-32.0); MCHC 32.5 g/dL (32.0-37.0); MCV 88.6 fL (80.0-97.0); Mean Platelet Volume 11.3 fL (9.5-12.2); Monocytes # (A) 0.53 X 10*3/uL (0.20-1.00); Monocytes % (A) 7.5 %; Neutrophils # (A) 4.71 X 10*3/uL (1.80-7.70); Neutrophils % (A) 66.7 %; Platelet Count 289 X 10*3/uL (140-440); RBC 4.58 X 10*6/uL (4.10-5.20); RDW 14.1 % (11.5-14.5); WBC 7.06 X 10*3/uL (4.50-10.00)
[2020-06-12 21:12] LABS: African American GFR (CKD) 55.7 (60.0-200.0); Albumin 4.3 g/dL (3.80-4.90); Albumin/Globulin Ratio 1.43 (1.60-3.17); Anion Gap 7.7 mmol/L (4.00-12.00); BUN/Creat Ratio 24.17 Ratio (12.00-20.00); Calcium 9.5 mg/dL (8.7-10.3); Carbon Dioxide 22.3 mmol/L (21.6-31.8); Non-African American GFR(CKD) 48.1 (60.0-200.0); Potassium 4.9 mmol/L (3.5-5.5); Total Bilirubin 0.3 mg/dL (0.2-1.2); Total Protein 7.3 g/dL (6.2-8.2)
== END | disposition home or self-care (01) ==
LOC: LABWHC1 10:15
PROVIDERS: ATTEND Urology
DX: C64.9 Malignant neoplasm of unspecified kidney, except renal pelvis (principal)
CPT/HCPCS: 36415; 80053; 85025

== ENCOUNTER → 2020-07-12 | Outpatient (CLI) | payer OTHER ==
[2020-07-12 13:42] LABS: Basophils % (A) 1 %; Eosinophils # (A) 0.1 k/uL (0-0.7); Eosinophils % (A) 3 %; HCT 38.4 % (34.0-46.0); HGB 12.6 gm/dL (11.4-16.0); Lymphocytes # (A) 1.5 k/uL (1.0-4.8); Lymphocytes % (A) 28 %; MCH 28.8 pg (25.0-35.0); MCHC 32.9 g/dL (31.0-37.0); MCV 87.6 fL (80.0-100.0); Mean Platelet Volume 7.3; Monocytes # (A) 0.3 k/uL (0-1.0); Monocytes % (A) 6 %; Neutrophils # (A) 3.3 k/uL (1.3-7.7); Neutrophils % (A) 61 %; Platelet Count 274 k/uL (150-450); RBC 4.39 m/uL (3.80-5.40); RDW 13.7 % (11.5-15.5); WBC 5.4 k/uL (3.8-10.6)
[2020-07-12 13:50] LABS: Albumin 3.9 g/dL (3.5-5.0); Calcium 9.4 mg/dL (8.4-10.2); Potassium 4.9 mmol/L (3.5-5.1); Total Bilirubin 0.5 mg/dL (0.2-1.3); Total Protein 7.6 g/dL (6.3-8.2)
--- NOTE | 2020-07-12 14:52 | CT ---
EXAMINATION TYPE: CT abdomen w con DATE OF EXAM: 07/12/2020 COMPARISON: 01/11/2020 HISTORY: Malignant neoplasm kidney CT DLP: 1237.6 mGycm Automated exposure control for dose reduction was used. CONTRAST: Performed with IV Contrast, patient injected with 100 ml mL of Isovue 300. Images obtained from the diaphragm to the iliac crests with IV and oral contrast. Lung bases are clear of consolidation. There is no pleural effusion. There is no pericardial effusion . Stomach is intact. Gallbladder appears normal. The bile ducts are not dilated. Spleen is intact. Th ere is no sign of pancreatic mass. There is 2 cm hypodense area in the lateral right lobe of the live r that is slightly increased in size compared to 08/30/2018 CT scan. This does not show delayed enhanc ement. There is 2 cm irregular nodular enhancing area in the posterior right lobe of the liver that c ould be vascular malformation and unchanged. The bile ducts are not dilated. Gallbladder appears norm al. There is no adrenal mass. Left kidney is absent. The right kidney shows 3 cm cortical cyst on the low er pole. There is no hydronephrosis. There is no retroperitoneal adenopathy. There is no ascites. I s ee no mesenteric edema. There is posterior fusion surgery in the lower lumbar spine. There is multilevel moderate spondylotic change in the lumbar spine with vacuum disc and spur formation. IMPRESSION: There is subtle hypodense liver lesion slightly increased compared to old exam. The appearance is non specific. Metastatic disease is possible. No dilated ducts. Right renal cortical cyst unchanged.
--- NOTE | 2020-07-12 14:57 | CT ---
EXAMINATION TYPE: CT chest wo con DATE OF EXAM: 07/12/2020 COMPARISON: 09/30/2018 HISTORY: Malignant neoplasm kidney CT DLP: 383 mGycm Automated exposure control for dose reduction was used. Images were obtained from the thoracic inlet to the diaphragm without contrast. FINDINGS: There is mild bullous pulmonary emphysema. There is a minimal reticular infiltrate in the posterior r ight upper lobe. There is no pleural effusion. There is no pericardial effusion. There is no evidence of a pulmonary mass. There are no hilar masses. There is no mediastinal adenopathy. Thoracic aorta is atheromatous. Thoracic spine is intact. There is no compression fracture. IMPRESSION: Mild pulmonary emphysema. No suspicious pulmonary mass. There is clearing of the interstitial pneumon ia compared to old exam.
== END | disposition home or self-care (01) ==
LOC: RADCTMAIN 12:45
PROVIDERS: ATTEND Urology
DX: K76.9 Liver disease, unspecified (principal); N28.1 Cyst of kidney, acquired; J43.9 Emphysema, unspecified; J84.9 Interstitial pulmonary disease, unspecified
CPT/HCPCS: 80053; 85025; 71250; 74160; Q9967

== ENCOUNTER 2020-08-11 06:21 | Emergency (ER) | payer OTHER ==
[2020-08-11 06:33] VITALS: TEMP 96.7
[2020-08-11] MEDS ORDERED: SODIUM CHLORIDE 0.9% 2,000 ML IV STA (06:35)
[2020-08-11 06:47] LABS: Basophils % (A) 0 %; Eosinophils # (A) 0.2 k/uL (0-0.7); Eosinophils % (A) 1 %; HCT 45.4 % (34.0-46.0); HGB 15.4 gm/dL (11.4-16.0); Lymphocytes % (A) 14 %; MCH 28.8 pg (25.0-35.0); MCV 84.7 fL (80.0-100.0); Mean Platelet Volume 7.2; Monocytes # (A) 0.8 k/uL (0-1.0); Monocytes % (A) 5 %; Neutrophils % (A) 78 %; Platelet Count 369 k/uL (150-450); RBC 5.36 m/uL (3.80-5.40); RDW 13.2 % (11.5-15.5); WBC 14.1 k/uL (3.8-10.6)
[2020-08-11 07:00] LABS: Calcium 9.7 mg/dL (8.4-10.2); Total Bilirubin 1.1 mg/dL (0.2-1.3)
[2020-08-11 07:06] LABS: Potassium 4.3 mmol/L (3.5-5.1)
[2020-08-11 07:07] LABS: Albumin 4.8 g/dL (3.5-5.0); Total Protein 8.7 g/dL (6.3-8.2)
[2020-08-11] MEDS ORDERED: ONDANSETRON 4 MG/2 ML VIAL IVP STA ×2 (07:14→08:44)
[2020-08-11] MEDS ORDERED: diphenhydrAMINE 50 MG/ML 1 ML VIAL IVP STA (07:14)
--- NOTE | 2020-08-11 07:15 | ED ---
Nausea/Vomiting/Diarrhea HPI - General Chief complaint: Nausea/Vomiting/Diarrhea Stated complaint: vomiting Time Seen by Provider: 08/11/20 06:28 Source: patient, family, RN notes reviewed Mode of arrival: ambulatory Limitations: no limitations - History of Present Illness Initial comments: 65-year-old female presents emergency apartment with chief complaint nausea vomiting. Patient states has been going on for last few days. This is a recurrent issue with her in which she's been elevated by primary GI with multiple scopes. Patient states it's very sick in nature. She states that she is very anxious, patient is uncooperative. Patient denies any chest pain, shortness breath, headache or dizziness complains of diffuse abdominal pain. She states a hot shower makes her feel better. She does admit to marijuana use. - Related Data Home Medications Medication Instructions Recorded Confirmed ALPRAZolam [Xanax] 0.5 mg PO TID PRN 07/08/17 10/05/18 Citalopram Hydrobromide [CeleXA] 40 mg PO DAILY 07/08/17 10/05/18 Ergocalciferol (Vitamin D2) 50,000 unit PO QMONTH 05/25/18 10/05/18 [Drisdol (50,000 Iu)] Mirabegron [Myrbetriq] 25 mg PO DAILY 05/25/18 10/05/18 Levothyroxine Sodium [Synthroid] 125 mcg PO DAILY 09/30/18 10/05/18 Multivitamins, Thera [Multivitamin 1 tab PO DAILY 09/30/18 10/05/18 (formulary)] Previous Rx's Medication Instructions Recorded Atorvastatin [Lipitor] 20 mg PO HS #30 tab 10/03/18 Isosorbide Mononitrate ER [Imdur] 30 mg PO DAILY #30 tab.er.24h 10/03/18 Losartan [Cozaar] 25 mg PO DAILY #30 tab 10/03/18 Metoprolol Succinate (ER) [Toprol 75 mg PO DAILY #30 tab.er.24h 10/03/18 XL] Omeprazole [PriLOSEC] 40 mg PO AC-YOUSIFKFSBarbra #14 capsule. 10/07/18 Ondansetron [Zofran] 4 mg PO Q8HR PRN #9 tab 10/07/18 Sennosides-Docusate Sodium 2 each PO BID #8 tab 10/07/18 [Senokot-S] HYDROcodone/APAP 5-325MG [[place] 1 tab PO Q6HR PRN #12 tab 01/11/20 5-325] Ondansetron Odt [Zofran Odt] 4 mg PO Q8HR PRN #10 tab 08/11/20 Allergies Allergy/AdvReac Type Severity Reaction Status Date / Time Sulfa (Sulfonamide Allergy Rash/Hives Verified 01/11/20 09:18 Antibiotics) Review of Systems ROS Statement: Those systems with pertinent positive or pertinent negative responses have been documented in the HPI. ROS Other: All systems not noted in ROS Statement are negative. Past Medical History Past Medical History: Cancer, Chest Pain / Angina, GERD/Reflux, Hypertension, Myocardial Infarction ([place]), Pneumonia, Thyroid Disorder Additional Past Medical History / Comment(s): Recent upper respiratory infection, "2012 electrical heart attack", PUD, hypothyroid, low back pain, past migraines, lt foot fx with surgery, rib fx, diverticulosis dx/benign p olyp.stress test 02-17-17, lt kidney ca(sx) Last Myocardial Infarction Date:: 2012 History of Any Multi-Drug Resistant Organisms: None Reported Past Surgical History: Back Surgery, Heart Catheterization, Orthopedic Surgery, Tonsillectomy, Tubal Ligation Additional Past Surgical History / Comment(s): 2012 cardiac cath-normal, 01/11/17 colonoscopy/benign polypectomy, ORIF LT FT, back x2, "lt NEPHRECTOMY d/t cancer". 09/30-heart cath-clear. Past Anesthesia/Blood Transfusion Reactions: No Reported Reaction Additional Past Anesthesia/Blood Transfusion Reaction / Comment(s): no hx blood transfusion Past Psychological History: No Psychological Hx Reported Smoking Status: Former smoker Past Alcohol Use History: None Reported Past Drug Use History: Marijuana - Past Family History Mother Family Medical History: No Reported History Additional Family Medical History / Comment(s): Mother was healthy and lived to be 92 yrs. old. Father History Unknown: Yes Family Medical History: No Reported History General Exam Limitations: no limitations General appearance: alert, in no apparent distress, anxious Head exam: Present: atraumatic, normocephalic, normal inspection Neck exam: Present: normal inspection. Absent: tenderness, meningismus, lymphadenopathy Respiratory exam: Present: normal lung sounds bilaterally. Absent: respiratory distress, wheezes, rales, rhonchi, stridor Cardiovascular Exam: Present: normal rhythm, tachycardia, normal heart sounds. Absent: systolic murmur, diastolic murmur, rubs, gallop, clicks GI/Abdominal exam: Present: soft, normal bowel sounds. Absent: distended, tenderness, guarding, rebound, rigid Neurological exam: Present: alert Skin exam: Present: warm, dry, intact, normal color. Absent: rash Course Vital Signs 08/11/20 08/11/20 08/11/20 06:30 07:31 08:00 Temperature 96.7 F L Pulse Rate 160 H 130 H 117 H Respiratory 22 24 20 Rate Blood Pressure 137/108 180/100 O2 Sat by Pulse 95 98 99 Oximetry Medical Decision Making - Medical Decision Making 65-year-old female presented for nausea vomiting this is a recurrent issue and which she states it comes very cyclic has never been diagnosed with cyclic vo miting. Patient symptoms may related to marijuana use. We discussed this. Patient will follow-up with her PCP return parameters were discussed. Patient's heart rate was initially elevated though patient was anxious, agitated, not cooperative. Patient heart rate is improved after fluid hydration and patient is calm - Lab Data Result diagrams: 08/11/20 06:38 08/11/20 06:38 Lab Results 08/11/20 08/11/20 08/11/20 Range/Units 06:38 06:38 06:38 WBC 14.1 H (3.8-10.6) k/uL RBC 5.36 (3.80-5.40) m/uL Hgb 15.4 (11.4-16.0) gm/dL Hct 45.4 (34.0-46.0) % MCV 84.7 (80.0-100.0) fL MCH 28.8 (25.0-35.0) pg MCHC 34.0 (31.0-37.0) g/dL RDW 13.2 (11.5-15.5) % Plt Count 369 (150-450) k/uL MPV 7.2 Neutrophils % 78 % Lymphocytes % 14 % Monocytes % 5 % Eosinophils % 1 % Basophils % 0 % Neutrophils # 11.0 H (1.3-7.7) k/uL Lymphocytes # 2.0 (1.0-4.8) k/uL Monocytes # 0.8 (0-1.0) k/uL Eosinophils # 0.2 (0-0.7) k/uL Basophils # 0.0 (0-0.2) k/uL Sodium 137 (137-145) mmol/L Potassium 4.3 (3.5-5.1) mmol/L Chloride 107 (98-107) mmol/L Carbon Dioxide 17 L (22-30) mmol/L Anion Gap 13 mmol/L BUN 23 H (7-17) mg/dL Creatinine 1.23 H (0.52-1.04) mg/dL Est GFR (CKD-EPI)AfAm 54 (>60 ml/min/1.73 sqM) Est GFR (CKD-EPI)NonAf 47 (>60 ml/min/1.73 sqM) Glucose 154 H (74-99) mg/dL Plasma Lactic Acid Yg 2.4 H* (0.7-2.0) mmol/L Calcium 9.7 (8.4-10.2) mg/dL Total Bilirubin 1.1 (0.2-1.3) mg/dL AST 60 H (14-36) U/L ALT 24 (4-34) U/L Alkaline Phosphatase 98 (38-126) U/L Total Protein 8.7 H (6.3-8.2) g/dL Albumin 4.8 (3.5-5.0) g/dL Lipase 87 (23-300) U/L Disposition Clinical Impression: Nausea & vomiting Disposition: HOME SELF-CARE Condition: Stable Instructions (If sedation given, give patient instructions): Acute Nausea and Vomiting (ED) Additional Instructions: Please return to the Emergency Department if symptoms worsen or any other concerns. Prescriptions: Ondansetron Odt [Zofran Odt] 4 mg PO Q8HR PRN #10 tab PRN Reason: Nausea Is patient prescribed a controlled substance at d/c from ED?: No Referrals: Edmar Holder III, MD [Primary Care Provider] - 1-2 days
[2020-08-11] MEDS ORDERED: CAPSAICIN 0.025% CREAM 60 GM TUBE TOPICAL STA (07:34)
[2020-08-11 08:02] VITALS: RESP 20
[2020-08-11] MEDS ORDERED: LORazepam 2 MG/ML INJ IV STA (08:15)
[2020-08-11 09:01] VITALS: BP 169/90; PULSE 105
== END 2020-08-11 09:10 | disposition home or self-care (01) ==
LOC: EC 06:21
DX: R11.2 Nausea with vomiting, unspecified (principal); R19.7 Diarrhea, unspecified; I10 Essential (primary) hypertension; E03.9 Hypothyroidism, unspecified; I25.2 Old myocardial infarction; K21.9 Gastro-esophageal reflux disease without esophagitis; Z79.899 Other long term (current) drug therapy; Z85.528 Personal history of other malignant neoplasm of kidney; Z87.11 Personal history of peptic ulcer disease; Z87.891 Personal history of nicotine dependence; Z88.2 Allergy status to sulfonamides; Z90.5 Acquired absence of kidney
CPT/HCPCS: 80053; 83605; 83690; 85025; 99284; 96374; 96375 ×3; 96361 ×2; J2060; J1200; J2405; J1790

== ENCOUNTER 2020-09-24 08:00 | Day surgery (SDC) | payer OTHER ==
[2020-09-23 08:56] VITALS: BMI 29.7
[2020-09-24 09:04] VITALS: RESP 16; TEMP 97.5
[2020-09-24] MEDS ORDERED: LIDOCAINE 1% (10MG/ML) FOR IV START INTRADERMA ONE (09:18)
[2020-09-24] MEDS: LACTATED RINGERS 1,000 ML IV SCH ×2 (09:18→11:40)
[2020-09-24] MEDS ORDERED: PROPOFOL 10 MG/ML 20 ML VIAL IV ONE (09:55)
[2020-09-24] MEDS ORDERED: LIDOCAINE 1% INJ 10MG/ML (20 ML MDV) ONE (09:55)
--- NOTE | 2020-09-24 10:00 | P.GSHP ---
History of Present Illness H&P Date: 09/24/20 Chief Complaint: Colon cancer screening Patient here today for colonoscopy. Last colonoscopy 4 years ago. At that time the patient had a suboptimal prep. She did have a tubular adenoma at the hepatic flexure. No bowel complaints. No family history of colon cancer. Past Medical History Past Medical History: Cancer, Chest Pain / Angina, GERD/Reflux, Hypertension, Myocardial Infarction (CT), Thyroid Disorder Additional Past Medical History / Comment(s): diverticulosis, colon polyp., hx of left kidney cancer with surgery., scheduled for sleep apnea test., states hole in her heart., hypothyroid. Last Myocardial Infarction Date:: 2012 History of Any Multi-Drug Resistant Organisms: None Reported Past Surgical History: Back Surgery, Heart Catheterization, Orthopedic Surgery, Tonsillectomy, Tubal Ligation Additional Past Surgical History / Comment(s): heart cath x2.,, colonoscopy- polypectomy, ORIF LT FT, back surgery x2, "lt NEPHRECTOMY and then evisceration with emergency surgery., back surgery with screws & plates. Past Anesthesia/Blood Transfusion Reactions: Postoperative Nausea & Vomiting (PONV) Additional Past Anesthesia/Blood Transfusion Reaction / Comment(s): states post- op nausea and elevated bloodpressure after EGD. ponv after kidney surgery. Past Psychological History: Anxiety, Depression Additional Psychological History / Comment(s): . Smoking Status: Former smoker Past Alcohol Use History: None Reported Additional Past Alcohol Use History / Comment(s): Pt started smoking in 1971 smoked <1 ppd and quit may 2017 Past Drug Use History: Marijuana Additional Drug Use History / Comment(s): OCCASIONAL MARIJUANA - Past Family History Mother Family Medical History: No Reported History Additional Family Medical History / Comment(s): Mother was healthy and lived to be 92 yrs. old. Father History Unknown: Yes Family Medical History: No Reported History Medications and Allergies Home Medications Medication Instructions Recorded Confirmed Type ALPRAZolam [Xanax] 0.5 mg PO TID PRN 07/08/17 09/23/20 History Citalopram Hydrobromide [CeleXA] 40 mg PO DAILY 07/08/17 09/23/20 History Ergocalciferol (Vitamin D2) 50,000 unit PO QMONTH 05/25/18 09/23/20 History [Drisdol (50,000 Iu)] Mirabegron [Myrbetriq] 25 mg PO DAILY 05/25/18 09/23/20 History Aspirin [Adult Low Dose Aspirin EC] 81 mg PO DAILY 09/23/20 09/23/20 History Atorvastatin [Lipitor] 40 mg PO DAILY 09/23/20 09/23/20 History Levothyroxine Sodium 137 mcg PO DAILY 09/23/20 09/23/20 History Metoprolol Succinate [Toprol XL] 50 mg PO DAILY 09/23/20 09/23/20 History Omeprazole Magnesium [PriLOSEC OTC] 20 mg PO DAILY 09/23/20 09/23/20 History calcitrioL [Calcitriol] 0.25 mcg PO MOWEFR 09/23/20 09/23/20 History Allergies Allergy/AdvReac Type Severity Reaction Status Date / Time Sulfa (Sulfonamide Allergy Rash/Hives Verified 09/24/20 08:58 Antibiotics) NSAIDS (Non-Steroidal AdvReac NO NSAIDS Verified 09/24/20 08:58 Anti-Inflamma DUE TO ONLY 1 KIDNEY Surgical - Exam Vital Signs Temp Pulse Resp BP Pulse Ox 97.5 F L 48 L 16 167/87 99 09/24/20 09:02 09/24/20 09:02 09/24/20 09:02 09/24/20 09:02 09/24/20 09:02 Physical exam: General: Well-developed, well-nourished HEENT: Normocephalic, sclerae nonicteric Abdomen: Nontender, nondistended Extremities: No edema Neuro: Alert and oriented Assessment and Plan (1) Colon cancer screening Narrative/Plan: Will proceed with colonoscopy Current Visit: Yes Status: Acute Code(s): Z12.11 - ENCOUNTER FOR SCREENING FOR MALIGNANT NEOPLASM OF COLON SNOMED Code(s): 868597351
--- NOTE | 2020-09-24 10:21 | P.PCN ---
Date of Procedure: 09/24/20 Procedure(s) Performed: PREOPERATIVE DIAGNOSIS: Colon cancer screening, history of polyps POSTOPERATIVE DIAGNOSIS: Transverse colon and descending colon polyp, diverticulosis, tortuous colon PROCEDURE: Colonoscopy with biopsy ANESTHESIA: MAC SURGEON: Ken Herring M.D. SPECIMENS: polyps ENDOSCOPIC PROCEDURE: The patient was placed on the endoscopy table in the left decubitus position. The Olympus colonoscope was inserted into the anus and passed under direct visualization to the base proximal transverse colon. The patient has significant tortuosity and I could not advance more proximal pneumatic. The patient's prep was good at this time. In the mid transverse colon a small polyp was seen and removed using the cold biopsy forceps. The descending colon another small polyp was seen and again removed using the cold biopsy forceps. The re Digital rectal examination was normal. The patient was taken to the recovery room in stable condition per anesthesia guidelines. RECOMMENDATIONS: Await biopsy results. Patient will require barium enema to evaluate the proximal colon in 8 weeks.
[2020-09-24] MEDS ORDERED: ONDANSETRON 4 MG/2 ML VIAL ONE (10:32)
[2020-09-24] MEDS ORDERED: ONDANSETRON 4 MG/2 ML VIAL IVP ONE (10:36)
[2020-09-24] MEDS ORDERED: ONDANSETRON ODT 4 MG TAB PO ONE (11:22)
[2020-09-24] MEDS ORDERED: LORazepam 2 MG/ML INJ ONE (11:45)
[2020-09-24] MEDS ORDERED: LORazepam 2 MG/ML INJ IV ONE (11:51)
[2020-09-24] MEDS ORDERED: METOCLOPRAMIDE 5 MG/ML 2 ML VIAL ONE (12:01)
[2020-09-24] MEDS ORDERED: METOCLOPRAMIDE 5 MG/ML 2 ML VIAL IVP ONE (12:06)
[2020-09-24] MEDS ORDERED: SCOPOLAMINE 1.5MG/72HR PATCH TRANSDERM ONE (12:20)
[2020-09-24] MEDS ORDERED: DEXAMETHASONE SOD PHOSPHATE 10 MG/ML 1 ML VIAL IV ONE (12:29)
[2020-09-24 12:37] VITALS: BP 185/97; PULSE 94
== END 2020-09-24 13:29 | disposition home or self-care (01) ==
LOC: ORWHC2ENDO 08:00
PROVIDERS: ATTEND Surgery
DX: Z12.11 Encounter for screening for malignant neoplasm of colon (principal); D12.3 Benign neoplasm of transverse colon; K57.30 Diverticulosis of large intestine without perforation or abscess without bleeding; Q43.8 Other specified congenital malformations of intestine; Z86.010 Personal history of colon polyps; K21.9 Gastro-esophageal reflux disease without esophagitis; I10 Essential (primary) hypertension; I25.2 Old myocardial infarction; E03.9 Hypothyroidism, unspecified; Z87.19 Personal history of other diseases of the digestive system; Z85.528 Personal history of other malignant neoplasm of kidney; Z98.51 Tubal ligation status; Z90.89 Acquired absence of other organs; Z98.890 Other specified postprocedural states; Z90.5 Acquired absence of kidney; F41.9 Anxiety disorder, unspecified; F32.9 Major depressive disorder, single episode, unspecified; Z87.891 Personal history of nicotine dependence; Z79.890 Hormone replacement therapy; Z79.899 Other long term (current) drug therapy; Z88.6 Allergy status to analgesic agent; Z88.2 Allergy status to sulfonamides
CPT/HCPCS: 88305; 45380; J2060; J1100; J2765; J2405; J2001; J2704

== ENCOUNTER → 2020-10-02 | Outpatient (CLI) | payer OTHER ==
--- NOTE | 2020-10-03 09:27 | CONS ---
CONSULTATION DATE OF SERVICE: 10/02/2020 65-year-old lady has been evaluated in the sleep center for possible obstructive sleep apnea-hypopnea syndrome and also for episodes of limb movements during the sleep. HISTORY OF PRESENT ILLNESS/SLEEP WAKE EVALUATION: Patient's usual sleep schedule from 9, 9:30 p.m. until 6 a.m. She does have problems with falling asleep, although no TV in bedroom. She usually sleeps on the side position. Has loud snoring and she wakes up from sleep 3 times with 2 episodes of nocturia. Positive history of sleep talking and also episodes of possible omc-kw-[id number] movements. The patient also wakes up with grinding teeth and dry mouth, sweating. In the morning, patient feels sleepiness, falling asleep during the day. Has episodes of depression and anxiety. [place] Sleepiness Scale is 4. PAST MEDICAL HISTORY: Positive for hypertension, coronary artery disease with heart attack, hyperlipidemia, left kidney cancer. PAST SURGICAL HISTORY: Left nephrectomy for cancer, status post lumbar decompression surgery. MEDICATIONS: ( ) 325 mg once a day, Lipitor 40 mg once a day, metoprolol 50 mg once a day. Levothyroxine 137 mcg once a day. Celexa 40 mg once a day. Xanax up to 3 times a day. Prilosec 20 mg once a day. Calcitrol 3 times a day, aspirin 81 mg once a day. SOCIAL HISTORY: Positive for smoking; quit in 2014. Alcohol consumption: None. FAMILY HISTORY: Positive for hypertension, heart problems. REVIEW OF SYSTEMS: Snoring, multiple awakenings from sleep, sleepiness during the day. Patient takes naps around 2, 3:00 pm. PHYSICAL EXAMINATION: GENERAL: lady without distress BP 106/70, HR 58, RR 15, height 5 feet 5-1/2 inches, weight 197 pounds. BMI 32.2, temperature 97.4, oxygen saturation at room air 95%. Oropharynx showed low position of soft palate, Mallampati 3-4. Neck is 17 inches in circumference. Wide. HEENT: PERRLA, EOMI, evaluation of oropharynx showed tongue protrudes midline. NECK: Supple, no JVD. Thyroid is not palpable. LUNGS: Clear to percussion and to auscultation. Good air exchange. No wheezing or rhonchi. HEART: S1, S2 regular. No murmurs, gallops, or rubs. ABDOMEN: Obese. Soft and nontender. Bowel sounds are present. No organomegaly appreciated. EXTREMITIES: No clubbing or cyanosis. SKIVER BOX TOE: Awake, alert, and oriented X3. Cranial nerves 2 to 7 intact. There is no fasciculation or atrophy. noted. No focal deficits observed. IMPRESSION: 1. Loud snoring, multiple awakenings from sleep with nocturia and dry mouth. Low position of soft palate, Mallampati 3-4. Wide neck, 17 inches in circumference. Patient takes naps in the afternoon. Sleepiness. Obstructive sleep apnea-hypopnea syndrome. 2. Obesity, body mass index 32.2. 3. Sleep talking. 4. History of some out of dream movements, possible REM sleep behavioral disorder. 5. Hypertension. 6. History of NM. 7. Hyperlipidemia. 8. History of left kidney CA status post nephrectomy. 9. Status post lumbar decompression surgery. PLAN: 1. Polysomnography for evaluation of patient's breathing during sleep and also to check for any abnormal movements during the sleep for possibility of REM sleep behavioral disorder. 2. CPAP/BiPAP titration if sleep study confirms obstructive sleep apnea-hypopnea syndrome. 3. Preferable position during sleep on the side. 4. No driving if patient feels any sleepiness. 5. I will see patient for follow up visit to explain results of testing and following plan. Cayetano Rush MD, PhD, FAASM Diplomat of [employer] Sleep Medicine Board of [employer] [employer] Building Supplies Salesperson [employer] of [facility] [place] MMODL / IJN: [id number] /
== END | disposition home or self-care (01) ==
LOC: SLEEP 15:05
PROVIDERS: ATTEND Internal Medicine
DX: Z12.11 Encounter for screening for malignant neoplasm of colon (principal); G47.33 Obstructive sleep apnea (adult) (pediatric); I10 Essential (primary) hypertension; I25.2 Old myocardial infarction; E78.5 Hyperlipidemia, unspecified; R68.2 Dry mouth, unspecified; R35.1 Nocturia; E66.9 Obesity, unspecified; Z68.32 Body mass index [BMI] 32.0-32.9, adult; Z79.82 Long term (current) use of aspirin; Z79.899 Other long term (current) drug therapy; Z79.890 Hormone replacement therapy; Z85.528 Personal history of other malignant neoplasm of kidney; Z87.891 Personal history of nicotine dependence; Z90.5 Acquired absence of kidney; Z98.890 Other specified postprocedural states; Z82.49 Family history of ischemic heart disease and other diseases of the circulatory system
CPT/HCPCS: 99211

== ENCOUNTER → 2020-11-19 | Outpatient (CLI) | payer OTHER ==
--- NOTE | 2020-11-19 18:17 | FL ---
EXAMINATION TYPE: FL barium enema DATE OF EXAM: 11/19/2020 COMPARISON: CT abdomen 07/12/2020 HISTORY: 65 year-old female Z86.010, history of colonic polyps. Incomplete colonoscopy 8 weeks ago. TECHNIQUE: A single contrast barium enema study is performed. A total of 1 minute 39 seconds of flu oroscopic time was utilized during procedure and 39 images obtained. FINDINGS: Car Racer view of the abdomen shows overall non-obstructive bowel gas pattern. Degenerated dextroconvex s coliosis of the lumbar spine and a right-sided posterior lumbar fusion at L5-S1. There is left-sided colonic diverticulosis, greatest in the sigmoid colon. Allowing for single contrast technique, no evidence of any mass or polyp, obstructing or constricting lesion throughout the colon There is minimal reflux noted into the terminal ileum. IMPRESSION: Single contrast exam. Left-sided colonic diverticulosis, greatest in the sigmoid colon. No suspicious constricting mass is identified.
== END | disposition home or self-care (01) ==
LOC: RADFLMAIN 09:52
PROVIDERS: ATTEND Surgery
DX: K57.30 Diverticulosis of large intestine without perforation or abscess without bleeding (principal); Z86.010 Personal history of colon polyps
CPT/HCPCS: 74270

== ENCOUNTER → 2021-04-30 | Outpatient (CLI) | payer OTHER ==
--- NOTE | 2021-04-30 11:50 | SFUN ---
SLEEP CENTER FOLLOW UP NOTE DATE OF SERVICE: 04/30/2021 This 65-year-old lady has been followed in Sleep Center for treatment of obstructive sleep apnea-hypopnea syndrome. Recently she had a polysomnogram which showed severe sleep apnea, and then patient had CPAP titration and was started on treatment with CPAP. Today is her first visit after treatment was initiated. I discussed results of the sleep studies with the patient in detail. She is able to use her CPAP equipment every night. She does have some slight irritation on her chin related to the position of her full-face mask. I checked her CPAP unit. Range of the pressure is 5 to 10, average pressure 9.8. Apnea- hypopnea index is 2.3, which is totally normal. Leak is in 95%, 19.1 L/minute, which is borderline. Usage is 87% for more than 4 hours and total usage 97% of nights. Average usage 5 hours 46 minutes, which indicates good compliance. The patient continues to have episodes of movements during sleep. Significant periodic limb movements were documented during the sleep study, during titration. She does have episodes of cjb-ap-[id number] movements still, while starting to use her CPAP. MEDICATIONS: 1. Lipitor 40 mg once a day. 2. Metoprolol 50 mg once a day. 3. Levothyroxine 137 mcg once a day. 4. Celexa 40 mg once a day. 5. Xanax up to 3 times a day. 6. Prilosec 20 mg once a day. 7. Aspirin 81 mg once a day. PHYSICAL EXAMINATION: GENERAL: Pleasant patient in no distress. VITAL SIGNS: BP 149/67, HR 52, RR 16, weight 200.8 pounds, temperature 97.0, oxygen saturation at room air 97%. HEENT: PERRLA, EOMI, evaluation of oropharynx showed tongue protrudes midline. Low position of soft palate; Mallampati III to IV. NECK: Supple, no JVD. Thyroid is not palpable. LUNGS: Clear to percussion and to auscultation. Good air exchange. No wheezing or rhonchi. HEART: S1, S2 regular. No murmurs, gallops, or rubs. ABDOMEN: Obese. EXTREMITIES: No clubbing or cyanosis. PHOTOGRAPHER STILL: Awake, alert, and oriented X3. Cranial nerves 2 to 7 intact. There is no fasciculation or atrophy. noted. No focal deficits observed. IMPRESSION: 1. Severe obstructive sleep apnea-hypopnea syndrome; apnea-hypopnea index 34.8 with oxygen desaturation to 87.4%. Normal respiration on CPAP. Patient demonstrated good compliance with treatment, benefitting from treatment. 2. Some irritation from the low part of the full-face mask on the chin. 3. Patient continues to have some xbz-xj-haffg movements during sleep; possible REM sleep behavioral disorder. 4. Sleeptalking. 5. Hypertension. 6. History of myocardial infarction. 7. Hyperlipidemia. 8. Obesity. 9. History of left kidney carcinoma, status post nephrectomy. 10.Status post lumbar decompression surgery. PLAN: 1. I will start the patient on clonazepam 0.5 mg at bedtime to prevent episodes of out- of-dream behavior. 2. Prescription for REMZzzs liner under the mask to prevent any irritation. Also, patient should not put the mask on so tight during the night. 3. Patient will continue to use PAP equipment every night for the whole night. 4. Sleep hygiene with regular time in bed for at least 7-1/2 to 8 hours. 5. Precautions related to driving. No driving if feeling sleepiness. 6. I will maintain all necessary prescription for PAP supplies including mask, tube, filters. 7. Watching weight. 8. Follow-up visit in 6 months or earlier if patient has any problems. Thank you very much for allowing me to participate in the management of your patient. Sincerely, Cayetano Rush MD, PhD, FAASM Diplomat of [place] [employer] Sleep Medicine Board of [employer] [employer] Operator of [facility] [place] MMODL / SMOOTHN: [id number] /
== END | disposition home or self-care (01) ==
LOC: SLEEP 10:16
PROVIDERS: ATTEND Internal Medicine
DX: G47.30 Sleep apnea, unspecified (principal); I10 Essential (primary) hypertension; E78.5 Hyperlipidemia, unspecified; E66.9 Obesity, unspecified; I25.2 Old myocardial infarction

== ENCOUNTER → 2021-09-23 | Outpatient (CLI) | payer MEDICARE ==
--- NOTE | 2021-09-23 12:26 | US ---
EXAMINATION TYPE: US kidneys/renal and bladder DATE OF EXAM: 09/23/2021 COMPARISON: 10/03/2018 CLINICAL HISTORY: N18.32 CHR KIDNEY DIEASE. h/o left renal CA and removal, known right renal cyst, no symptoms EXAM MEASUREMENTS: Right Kidney: 11.2 x 4.9 x 5.3 cm Left Kidney: Surgically absent Right Kidney: Inferior pole cyst = 2.6cm Left Kidney: Surgically absent Bladder: wnl No hydronephrosis or nephrolithiasis. IMPRESSION: 1. Stable appearing 2.6 cm right renal cyst.
== END | disposition home or self-care (01) ==
LOC: RADUSWWP 11:58
PROVIDERS: ATTEND Internal Medicine Nephrology
DX: N18.32 Chronic kidney disease, stage 3b (principal)
CPT/HCPCS: 76770

== ENCOUNTER 2021-09-30 10:15 | Observation (INO) | payer MEDICARE ==
[2021-09-30] MEDS ORDERED: ONDANSETRON 4 MG/2 ML VIAL IVP STA (10:42)
[2021-09-30] MEDS ORDERED: SODIUM CHLORIDE 0.9% 1,000 ML IV STA (10:42)
[2021-09-30] MEDS: NITROGLYCERIN SL TABS 0.4 MG TAB SUBLINGUAL STA ×3 (10:56→11:32)
[2021-09-30 11:01] LABS: Basophils % (A) 0 %; Eosinophils # (A) 0.1 k/uL (0-0.7); Eosinophils % (A) 1 %; HCT 40.2 % (34.0-46.0); HGB 12.9 gm/dL (11.4-16.0); Lymphocytes % (A) 10 %; MCH 29.3 pg (25.0-35.0); MCHC 32.1 g/dL (31.0-37.0); MCV 91.3 fL (80.0-100.0); Mean Platelet Volume 7.6; Monocytes # (A) 0.5 k/uL (0-1.0); Monocytes % (A) 5 %; Neutrophils # (A) 8.4 k/uL (1.3-7.7); Neutrophils % (A) 83 %; Platelet Count 242 k/uL (150-450); RBC 4.41 m/uL (3.80-5.40); RDW 13.5 % (11.5-15.5); WBC 10.1 k/uL (3.8-10.6)
[2021-09-30 11:19] LABS: Albumin 3.8 g/dL (3.5-5.0); Calcium 8.9 mg/dL (8.4-10.2); Potassium 4.3 mmol/L (3.5-5.1); Total Bilirubin 0.2 mg/dL (0.2-1.3); Total Protein 7.3 g/dL (6.3-8.2)
[2021-09-30 11:21] LABS: Partial Thromboplastin Time 23.8 sec (22.0-30.0); Prothrombin Time 10.4 sec (9.0-12.0)
--- NOTE | 2021-09-30 11:24 | XR ---
EXAMINATION TYPE: XR chest 2V DATE OF EXAM: 09/30/2021 COMPARISON: 01/11/2020 TECHNIQUE: PA and lateral views submitted. HISTORY: Chest pain FINDINGS: The lungs are clear and there is no pneumothorax, pleural effusion, or focal pneumonia. Heart size normal. Atherosclerotic change aorta. Biapical pleural thickening. Arthropathy of the AC joint appear s osteopenia. Hypertrophic and degenerative change of the spine. Mild hyperinflation correlate for CO PD. IMPRESSION: 1. No acute process. COPD. Mild central interstitial chronic lung disease in the differential diagnos is
[2021-09-30] MEDS ORDERED: MORPHINE SULFATE 4 MG/ML SYRINGE IVP STA (11:43)
[2021-09-30] MEDS ORDERED: ASPIRIN 81 MG PO STA (11:43)
[2021-09-30] MEDS ORDERED: HEPARIN SODIUM 1,000 UN/ML (10ML VL) IV PRN (11:47)
[2021-09-30] MEDS ORDERED: HEPARIN SODIUM 1,000 UN/ML (10ML VL) IV ONE (11:47)
[2021-09-30] MEDS ORDERED: HEPARIN SOD,PORK IN 0.45% NACL 25,000 UNIT in 0.45% NACL 1 250ML.BAG IV SCH (12:00)
[2021-09-30] MEDS ORDERED: ALPRAZolam 0.5 MG TAB PO PRN (12:40)
[2021-09-30] MEDS ORDERED: NALOXONE 0.4 MG/ML 1 ML VIAL IV PRN (12:43)
[2021-09-30] MEDS ORDERED: SODIUM CHLORIDE 0.9% 1,000 ML IV SCH (12:45)
--- NOTE | 2021-09-30 12:49 | ED ---
General Adult HPI - General Chief complaint: Recheck/Abnormal Lab/Rx Stated complaint: high BP Time Seen by Provider: 09/30/21 10:25 Source: patient Mode of arrival: ambulatory Limitations: no limitations - History of Present Illness Initial comments: Patient is a 66-year-old female with a past medical history for myocardial infarction, hypertension, GERD, hypothyroidism, and renal cancer status post left nephrectomy who presents to the emergency department for evaluation of high blood pressure. Patient states she hasn't seen an multimedia educational specialist due to back pain and at her appointment today her blood pressure was 185/112. Patient states she did take her metoprolol this morning. Patient was sent to the emergency department for management of her blood pressure. Patient states before her appointment she started to experience chest pain in the mid lower region of her chest and epigastric region. Describes as an intermittent tightness, unrelated to activity. There is no radiation to the jaw or bilateral arms. Pain does radiate to the right ribs just underneath the breast. States she is mildly short of breath with activity at baseline however feels that it has worsened today. Reports nausea and sweating. Had one episode of vomiting prior to arrival. Denies fever, chills, headache, cough, dizziness, lightheadedness, palpitations, abdominal pain, new back pain, and burning with urination. Denies leg swelling and pain. Denies history of DVT and PE. Takes baby aspirin daily otherwise denies blood thinner use. Does not wear supplemental oxygen at home. Denies alcohol use. Cardiac studies reviewed. Patient had cardiac catheterization and echocardiogram in September 2018. Catheterization showed no critical lesions. Mode rate lesion in the circumflex artery which was considered unremarkable based on fractional flow reserve assessment. Echocardiogram showed a normal sized right and left ventricle. EF between 60-65%. Moderate mitral regurgitation. Mild pulmonary hypertension. - Related Data Home Medications Medication Instructions Recorded Confirmed ALPRAZolam [Xanax] 0.5 mg PO TID PRN 07/08/17 09/23/20 Citalopram Hydrobromide [CeleXA] 40 mg PO DAILY 07/08/17 09/23/20 Ergocalciferol (Vitamin D2) 50,000 unit PO QMONTH 05/25/18 09/23/20 [Drisdol (50,000 Iu)] Aspirin [Adult Low Dose Aspirin EC] 81 mg PO DAILY 09/23/20 09/23/20 Atorvastatin [Lipitor] 40 mg PO DAILY 09/23/20 09/23/20 Levothyroxine Sodium 137 mcg PO DAILY 09/23/20 09/23/20 Metoprolol Succinate [Toprol XL] 50 mg PO DAILY 09/23/20 09/23/20 Omeprazole Magnesium [PriLOSEC OTC] 20 mg PO DAILY 09/23/20 09/23/20 calcitrioL [Calcitriol] 0.25 mcg PO MOWEFR 09/23/20 09/23/20 Allergies Allergy/AdvReac Type Severity Reaction Status Date / Time Sulfa (Sulfonamide Allergy Rash/Hives Verified 09/30/21 12:30 Antibiotics) NSAIDS (Non-Steroidal AdvReac NO NSAIDS Verified 09/30/21 12:30 Anti-Inflamma DUE TO ONLY 1 KIDNEY Review of Systems ROS Statement: Those systems with pertinent positive or pertinent negative responses have been documented in the HPI. ROS Other: All systems not noted in ROS Statement are negative. Past Medical History Past Medical History: Cancer, Chest Pain / Angina, GERD/Reflux, Hypertension, Myocardial Infarction ([place]), Pneumonia, Thyroid Disorder Additional Past Medical History / Comment(s): Recent upper respiratory infection, "2012 electrical heart attack", PUD, hypothyroid, low back pain, past migraines, lt foot fx with surgery, rib fx, diverticulosis dx/benign polyp.str ess test 02-17-17, lt kidney ca(sx) Last Myocardial Infarction Date:: 2012 History of Any Multi-Drug Resistant Organisms: None Reported Past Surgical History: Back Surgery, Heart Catheterization, Orthopedic Surgery, Tonsillectomy, Tubal Ligation Additional Past Surgical History / Comment(s): 2012 cardiac cath-normal, 01/11/17 colonoscopy/benign polypectomy, ORIF LT FT, back x2, "lt NEPHRECTOMY d/t cancer". 09/30-heart cath-clear. Past Anesthesia/Blood Transfusion Reactions: No Reported Reaction Additional Past Anesthesia/Blood Transfusion Reaction / Comment(s): no hx blood transfusion Past Psychological History: No Psychological Hx Reported Smoking Status: Former smoker Past Alcohol Use History: None Reported Past Drug Use History: Marijuana - Past Family History Mother Family Medical History: No Reported History Additional Family Medical History / Comment(s): Mother was healthy and lived to be 92 yrs. old. Father History Unknown: Yes Family Medical History: No Reported History General Exam Limitations: no limitations General appearance: alert, in no apparent distress Head exam: Present: atraumatic, normocephalic, normal inspection Eye exam: Present: normal appearance, PERRL, EOMI. Absent: scleral icterus, conjunctival injection, periorbital swelling Neck exam: Present: normal inspection, full ROM Respiratory exam: Present: normal lung sounds bilaterally. Absent: respiratory distress, wheezes, rales, rhonchi, stridor Cardiovascular Exam: Present: normal rhythm, bradycardia, normal heart sounds. Absent: regular rate, systolic murmur, diastolic murmur, rubs, gallop, clicks, JVD GI/Abdominal exam: Present: soft, tenderness (epigastric), normal bowel sounds. Absent: distended, guarding, rebound, rigid Neurological exam: Present: alert, oriented X3, CN II-XII intact Psychiatric exam: Present: normal affect, normal mood Skin exam: Present: warm, dry, intact, normal color. Absent: rash Course Vital Signs 09/30/21 09/30/21 09/30/21 10:19 10:49 11:00 Temperature 97.5 F L Pulse Rate 58 L 58 L 56 L Pulse Rate [ 56 L Nail Galvanizer ] Respiratory 18 18 18 Rate Blood Pressure 152/83 141/85 130/74 O2 Sat by Pulse 98 97 Oximetry 09/30/21 09/30/21 09/30/21 11:25 11:30 11:35 Temperature Pulse Rate 61 67 60 Pulse Rate [ Nail Galvanizer ] Respiratory 18 18 18 Rate Blood Pressure 136/80 133/80 125/81 O2 Sat by Pulse Oximetry 09/30/21 11:59 Temperature Pulse Rate 55 L Pulse Rate [ Nail Galvanizer ] Respiratory 16 Rate Blood Pressure 141/89 O2 Sat by Pulse Oximetry EKG Findings - EKG Comments: EKG Findings:: EKG taken at 10:34. Sinus bradycardia, no ST segment or T-wave abnormalities. Ventricular rate 54. SC interval 169. QRS duration 90. QTc 409 Medical Decision Making - Medical Decision Making This is a 66-year-old female with extensive cardiac history who presents for evaluation of high blood pressure and chest pain. Thorough history and examination were performed. Patient is well-appearing. In no apparent distress. Blood pressure is 152/83. S1 and S2 are normal with no murmurs, rubs, or gallops. There is tenderness to palpation of the lower sternum and epigastric region. Full cardiac workup initiated. EKG shows sinus bradycardia at 54 bpm. There are no ST segment or T-wave abnormalities. Troponin is within normal limits. D-dimer is elevated at 1.06. Chest x-ray shows no acute process. Patient given 3 sublingual nitroglycerin with no relief of chest pain. Heparin initiated. Aspirin given. Results discussed with patient. Patient will be admitted for unstable angina with possible pulmonary embolism. Dr. Landers agreeable to admission. CT chest angio pending. Patient admitted in stable condition. Dr. Thomas is my attending - Lab Data Result diagrams: 09/30/21 10:53 09/30/21 10:53 Lab Results 09/30/21 09/30/21 09/30/21 Range/Units 10:53 10:53 10:53 WBC 10.1 (3.8-10.6) k/uL RBC 4.41 (3.80-5.40) m/uL Hgb 12.9 (11.4-16.0) gm/dL Hct 40.2 (34.0-46.0) % MCV 91.3 (80.0-100.0) fL MCH 29.3 (25.0-35.0) pg MCHC 32.1 (31.0-37.0) g/dL RDW 13.5 (11.5-15.5) % Plt Count 242 (150-450) k/uL MPV 7.6 Neutrophils % 83 % Lymphocytes % 10 % Monocytes % 5 % Eosinophils % 1 % Basophils % 0 % Neutrophils # 8.4 H (1.3-7.7) k/uL Lymphocytes # 1.0 (1.0-4.8) k/uL Monocytes # 0.5 (0-1.0) k/uL Eosinophils # 0.1 (0-0.7) k/uL Basophils # 0.0 (0-0.2) k/uL PT 10.4 (9.0-12.0) sec INR 1.0 (<1.2) APTT 23.8 (22.0-30.0) sec D-Dimer 1.06 H (<0.60) mg/L FEU Sodium 141 (137-145) mmol/L Potassium 4.3 (3.5-5.1) mmol/L Chloride 109 H (98-107) mmol/L Carbon Dioxide 25 (22-30) mmol/L Anion Gap 7 mmol/L BUN 25 H (7-17) mg/dL Creatinine 1.13 H (0.52-1.04) mg/dL Est GFR (CKD-EPI)AfAm 59 (>60 ml/min/1.73 sqM) Est GFR (CKD-EPI)NonAf 51 (>60 ml/min/1.73 sqM) Glucose 115 H (74-99) mg/dL Calcium 8.9 (8.4-10.2) mg/dL Magnesium 2.0 (1.6-2.3) mg/dL Total Bilirubin 0.2 (0.2-1.3) mg/dL AST 22 (14-36) U/L ALT 18 (4-34) U/L Alkaline Phosphatase 106 (38-126) U/L Troponin I (0.000-0.034) ng/mL NT-Pro-B Natriuret Pep pg/mL Total Protein 7.3 (6.3-8.2) g/dL Albumin 3.8 (3.5-5.0) g/dL 09/30/21 09/30/21 Range/Units 10:53 10:53 WBC (3.8-10.6) k/uL RBC (3.80-5.40) m/uL Hgb (11.4-16.0) gm/dL Hct (34.0-46.0) % MCV (80.0-100.0) fL MCH (25.0-35.0) pg MCHC (31.0-37.0) g/dL RDW (11.5-15.5) % Plt Count (150-450) k/uL MPV Neutrophils % % Lymphocytes % % Monocytes % % Eosinophils % % Basophils % % Neutrophils # (1.3-7.7) k/uL Lymphocytes # (1.0-4.8) k/uL Monocytes # (0-1.0) k/uL Eosinophils # (0-0.7) k/uL Basophils # (0-0.2) k/uL PT (9.0-12.0) sec INR (<1.2) APTT (22.0-30.0) sec D-Dimer (<0.60) mg/L FEU Sodium (137-145) mmol/L Potassium (3.5-5.1) mmol/L Chloride (98-107) mmol/L Carbon Dioxide (22-30) mmol/L Anion Gap mmol/L BUN (7-17) mg/dL Creatinine (0.52-1.04) mg/dL Est GFR (CKD-EPI)AfAm (>60 ml/min/1.73 sqM) Est GFR (CKD-EPI)NonAf (>60 ml/min/1.73 sqM) Glucose (74-99) mg/dL Calcium (8.4-10.2) mg/dL Magnesium (1.6-2.3) mg/dL Total Bilirubin (0.2-1.3) mg/dL AST (14-36) U/L ALT (4-34) U/L Alkaline Phosphatase (38-126) U/L Troponin I <0.012 (0.000-0.034) ng/mL NT-Pro-B Natriuret Pep 294 pg/mL Total Protein (6.3-8.2) g/dL Albumin (3.5-5.0) g/dL Disposition Clinical Impression: Unstable angina, Elevated d-dimer, Nausea & vomiting Disposition: ADMITTED IP TO THIS HOSP Condition: Fair Referrals: Edmar Holder III, MD [Primary Care Provider] - 1-2 days Decision Time: 13:16
--- NOTE | 2021-09-30 13:53 | CT ---
EXAMINATION TYPE: CT chest angio for PE CT DLP: 436.4 mGycm, Automated exposure control for dose reduction was used. DATE OF EXAM: 09/30/2021 1:41 PM COMPARISON: CT chest 07/12/2020, CT abdomen 07/12/2020. CLINICAL INDICATION:Female, 66 years old with history of r/o PE; Pulmonary Embolus TECHNIQUE/CONTRAST: CTA scan of the thorax is performed without and with IV Contrast, patient injected with 100 ml mL of Isovue 370, pulmonary embolism protocol. MIP images are created and reviewed. Coronal and sagittal reformats reviewed. FINDINGS: Pulmonary Artery: There is no evidence for a filling defect within the pulmonary vasculature to sugge st acute pulmonary embolism. The pulmonary artery is of normal size. Lungs/Pleura: No pleural effusion or pneumothorax. Bilateral lower lobe subsegmental scarring and/or atelectasis. Unchanged reticulation along the posterior medial aspect of the right upper lobe with as sociated bronchiectasis likely representing scarring. No new or enlarging pulmonary nodules. Airway: Large airways are patent. Heart: Heart is within normal limits for size.. No pericardial effusion. Coronary artery calcificatio ns. Vasculature: No evidence of aortic aneurysm. Mediastinum: No gross evidence of adenopathy. Musculoskeletal: No acute osseous abnormalities. Remote right eighth rib fracture. Soft Tissues: Unremarkable. Lower neck: No significant findings. Upper Abdomen: Redemonstration of right hepatic lobe hypodense lesion with peripheral hyperattenuatio n possibly representing a benign hemangioma. Small hiatal hernia. IMPRESSION: No evidence of pulmonary embolism or acute thoracic process.
[2021-09-30] MEDS ORDERED: ACETAMINOPHEN TAB 325 MG TAB PO PRN (13:56)
[2021-09-30] MEDS ORDERED: ONDANSETRON 4 MG/2 ML VIAL IVP PRN (13:57)
--- NOTE | 2021-09-30 13:58 | P.HPIM ---
History of Present Illness H&P Date: 09/30/21 Chief Complaint: Chest pain, nausea 66-year-old woman with a medical history of renal cell cancer status post nephrectomy, hypertension, hyperlipidemia, hypothyroidism, depression presented for evaluation of chest pressure, nausea. Patient says that she went to her orthopedic surgery clinic today for follow-up which was routine, however, when she got there she noted that she started to feel as if she had "high blood pressure". She has to take a blood pressure and the result came back high at 175/113, then she subsequently developed nausea and vomiting as well as chest pressure prompting concern from the office staff. She called her son and was brought here by car for further evaluation. She denies fevers, chills, palpitations, dyspnea, cough, abdominal pain, constipation, diarrhea, loss of appetite, dysuria, dyschezia, numbness/weakness. In the emergency room, patient was afebrile, 130/74, heart rate 56, 97% on room air. CBC was unremarkable. Chemistries show a BUN/creatinine of 25/1.13 which represents her baseline. LFTs are unremarkable. BNP was 294, troponin was less than 0.012. Coags were unremarkable. D-dimer was elevated at 1.06. Chest x-r ay was clear, however, it did note hyperinflation and mild interstitial prominence concerning for COPD changes. EKG was normal sinus rhythm with no ischemic changes. CT of the chest was ordered to rule out pulmonary embolism was negative for pulmonary embolism did show eczematous changes consistent with COPD. All Systems reviewed and pertinent positives and negatives noted in HPI, all other symptoms are negative Gen: in no apparent distress, resting comfortably in bed Eyes: PERRL, no scleral injection or icterus HENT: normocephalic, atraumatic, good hearing acuity, moist mucous membranes Neck: no tracheal deviation, full range of motion Resp: good air exchange, breathing comfortably with no accessory muscle use, no tactile fremitus CVS: good distal perfusion x 4, no pitting edema GI: soft, NTTP, ND, no hepatosplenomegaly : no suprapubic tenderness, no CVAT, hernandez catheter not present MSK: no clubbing, no cyanosis, no noted contractures of extremities, reproducible chest pain to palpation Skin: no noted rashes, petechiae; temperature of skin is appropriate Neuro: moving all extremities without signs of weakness, CN II-XII intact Psych: cooperative, euthymic mood, insight and judgment intact Labs and imaging reviewed as above Assessment/plan: Chest pain, atypical, likely musculoskeletal Nausea -Admit to observation, telemetry -Trend troponins -EKG/nitro when necessary -Tylenol when necessary for pain -Lidocaine patch to chest for pain -Cardiology consult -Echocardiogram -Zofran when necessary Hypertension Hyperlipidemia Hypothyroidism Depression -Home medications reviewed and reconciled Patient is full code DVT prophylaxis with early ambulation. Past Medical History Past Medical History: Cancer, Chest Pain / Angina, GERD/Reflux, Hypertension, My ocardial Infarction ([place]), Pneumonia, Thyroid Disorder Additional Past Medical History / Comment(s): Recent upper respiratory infection, "2012 electrical heart attack", PUD, hypothyroid, low back pain, past migraines, lt foot fx with surgery, rib fx, diverticulosis dx/benign polyp.stress test 02-17-17, lt kidney ca(sx) Last Myocardial Infarction Date:: 2012 History of Any Multi-Drug Resistant Organisms: None Reported Past Surgical History: Back Surgery, Heart Catheterization, Orthopedic Surgery, Tonsillectomy, Tubal Ligation Additional Past Surgical History / Comment(s): 2012 cardiac cath-normal, 01/11/17 colonoscopy/benign polypectomy, ORIF LT FT, back x2, "lt NEPHRECTOMY d/t cancer". 09/30-heart cath-clear. Past Anesthesia/Blood Transfusion Reactions: No Reported Reaction Additional Past Anesthesia/Blood Transfusion Reaction / Comment(s): no hx blood transfusion Past Psychological History: No Psychological Hx Reported Smoking Status: Former smoker Past Alcohol Use History: None Reported Past Drug Use History: Marijuana - Past Family History Mother Family Medical History: No Reported History Additional Family Medical History / Comment(s): Mother was healthy and lived to be 92 yrs. old. Father History Unknown: Yes Family Medical History: No Reported History Medications and Allergies Home Medications Medication Instructions Recorded Confirmed Type ALPRAZolam [Xanax] 0.5 mg PO TID PRN 07/08/17 09/30/21 History Citalopram Hydrobromide [CeleXA] 40 mg PO DAILY 07/08/17 09/30/21 History Ergocalciferol (Vitamin D2) 50,000 unit PO QMONTH 05/25/18 09/30/21 History [Drisdol (50,000 Iu)] Aspirin [Adult Low Dose Aspirin EC] 81 mg PO DAILY 09/23/20 09/30/21 History Atorvastatin [Lipitor] 40 mg PO DAILY 09/23/20 09/30/21 History Levothyroxine Sodium 137 mcg PO DAILY 09/23/20 09/30/21 History Metoprolol Succinate [Toprol XL] 50 mg PO DAILY 09/23/20 09/30/21 History Omeprazole Magnesium [PriLOSEC OTC] 20 mg PO DAILY 09/23/20 09/30/21 History calcitrioL [Calcitriol] 0.25 mcg PO MOWEFR 09/23/20 09/30/21 History Allergies Allergy/AdvReac Type Severity Reaction Status Date / Time Sulfa (Sulfonamide Allergy Rash/Hives Verified 09/30/21 12:30 Antibiotics) NSAIDS (Non-Steroidal AdvReac NO NSAIDS Verified 09/30/21 12:30 Anti-Inflamma DUE TO ONLY 1 KIDNEY Physical Exam Osteopathic Statement: *. No significant issues noted on an osteopathic structural exam other than those noted in the History and Physical/Consult. Vitals: Vital Signs Temp Pulse Pulse Resp BP Pulse Ox 09/30/21 11:59 55 L 16 141/89 09/30/21 11:35 60 18 125/81 09/30/21 11:30 67 18 133/80 09/30/21 11:25 61 18 136/80 09/30/21 11:00 56 L 18 130/74 97 09/30/21 10:49 58 L 56 L 18 141/85 09/30/21 10:19 97.5 F L 58 L 18 152/83 98 Intake and Output 09/29/21 09/30/21 09/30/21 22:59 06:59 14:59 Other: Weight 88.451 kg Results CBC & Chem 7: 09/30/21 10:53 09/30/21 10:53 Labs: Abnormal Lab Results - Last 24 Hours (Table) 09/30/21 09/30/21 09/30/21 Range/Units 10:53 10:53 10:53 Neutrophils # 8.4 H (1.3-7.7) k/uL D-Dimer 1.06 H (<0.60) mg/L FEU Chloride 109 H (98-107) mmol/L BUN 25 H (7-17) mg/dL Creatinine 1.13 H (0.52-1.04) mg/dL Glucose 115 H (74-99) mg/dL
[2021-09-30] MEDS ORDERED: NITROGLYCERIN SL TABS 0.4 MG TAB SUBLINGUAL PRN (14:11)
--- NOTE | 2021-09-30 14:31 | P.CRDCN ---
History of Present Illness Consult date: 09/30/21 History of present illness: HISTORY OF PRESENT ILLNESS: This is a 66-year-old female with a past medical history significant for hypertension, hyperlipidemia, and hypothyroidism. Patient follows in the office with Dr. Bright. We have been asked to see the patient in consultation for chest pain. Patient examined at the bedside in the ER. The patient states she was at [facility] today for a consultation regarding her back pain. She st ates she didnt feel quite right so she asked a staff member there to check her blood pressure and it was found to be 180s/110s. She was directed to the ER for further evaluation. She also reports having some mild chest discomfort in the middle of her chest and under her right breast. She continues to have discomfort at the time of my examination. No radiation of the pain. She reports pain with chest wall palpation. Her blood pressure has been stable since coming to the ER. * EKG reveals sinus mechanism with no signs of acute ischemia * Chest xray no acute process. COPD. Mild central interstitial chronic lung disease in the differential diagnosis. * Laboratory data: WBC 10.1. Hemoglobin 12.9. Platelet count 242. D-dimer 1.06. BUN 25. Creatinine 1.13. Troponin negative 1. ProBNP 294. * Current home cardiac medications include metoprolol succinate 50 mg daily, Lipitor 40 mg daily, and aspirin 81 mg daily * Most recent echocardiogram obtained in September 2018 revealed ejection fraction 60 -65%, moderate mitral regurgitation, mild tricuspid regurgitation * Cardiac catheterization history: September 2018 revealing no critical lesions. Moderate lesion of circumflex was unremarkable based on fractional flow reserve assessment. FFR was 0.95 and IFR was 0.98. REVIEW OF SYSTEMS: At the time of my exam: CONSTITUTIONAL: Denies fever or chills. HEENT: Denies blurred vision, vision changes, or eye pain. Denies hemoptysis CARDIOVASCULAR: Denies chest pain. Denies orthopnea. Denies PND. Denies palpitations RESPIRATORY: Denies shortness of breath. GASTROINTESTINAL: Denies abdominal pain. Denies nausea or vomiting. HEMATOLOGIC: Denies bleeding disorders. GENITOURINARY: Denies any blood in urine. SKIN: Denies pruitis. Denies rash. PHYSICAL EXAM: VITAL SIGNS: Reviewed. GENERAL: Well-developed in no acute distress. HEENT: Head is normocephalic. Pupils are equal, round. Sclerae anicteric. Mucous membranes of the mouth are moist. Neck supple. No JVD or thyromegaly LUNGS: Respirations even and unlabored. Lungs essentially clear to auscultation bilaterally. HEART: Regular rate and rhythm. S1 and S2 heard. ABDOMEN: Soft. Nondistended. Nontender. EXTREMITIES: Normal range of motion. No clubbing or cyanosis. Peripheral pulses intact. No lower extremity edema NEUROLOGIC: Awake and alert. Oriented x 3. ASSESSMENT: Chest pain, atypical, reproducible with palpation Nonobstructive coronary artery disease History of renal cancer with left nephrectomy Hypertension Hyperlipidemia Hypothyroidism PLAN: Obtain 2D echo to assess cardiac structure and function Trend troponins Monitor blood pressure CTA ordered. Await results NPO at midnight Further recommendations pending patient course Nurse practitioner note has been reviewed by physician. Signing provider agrees with the documented findings, assessment, and plan of care. Past Medical History Past Medical History: Cancer, Chest Pain / Angina, GERD/Reflux, Hypertension, Myocardial Infarction ([place]), Pneumonia, Thyroid Disorder Additional Past Medical History / Comment(s): Recent upper respiratory infection, "2012 electrical heart attack", PUD, hypothyroid, low back pain, past migraines, lt foot fx with surgery, rib fx, diverticulosis dx/benign polyp.stress test 02-17-17, lt kidney ca(sx) Last Myocardial Infarction Date:: 2012 History of Any Multi-Drug Resistant Organisms: None Reported Past Surgical History: Back Surgery, Heart Catheterization, Orthopedic Surgery, Tonsillectomy, Tubal Ligation Additional Past Surgical History / Comment(s): 2012 cardiac cath-normal, 01/11/17 colonoscopy/benign polypectomy, ORIF LT FT, back x2, "lt NEPHRECTOMY d/t cancer". 09/30-heart cath-clear. Past Anesthesia/Blood Transfusion Reactions: No Reported Reaction Additional Past Anesthesia/Blood Transfusion Reaction / Comment(s): no hx blood transfusion Past Psychological History: No Psychological Hx Reported Smoking Status: Former smoker Past Alcohol Use History: None Reported Past Drug Use History: Marijuana - Past Family History Mother Family Medical History: No Reported History Additional Family Medical History / Comment(s): Mother was healthy and lived to be 92 yrs. old. Father History Unknown: Yes Family Medical History: No Reported History Medications and Allergies Home Medications Medication Instructions Recorded Confirmed Type ALPRAZolam [Xanax] 0.5 mg PO TID PRN 07/08/17 09/30/21 History Citalopram Hydrobromide [CeleXA] 40 mg PO DAILY 07/08/17 09/30/21 History Ergocalciferol (Vitamin D2) 50,000 unit PO QMONTH 05/25/18 09/30/21 History [Drisdol (50,000 Iu)] Aspirin [Adult Low Dose Aspirin EC] 81 mg PO DAILY 09/23/20 09/30/21 History Atorvastatin [Lipitor] 40 mg PO DAILY 09/23/20 09/30/21 History Levothyroxine Sodium 137 mcg PO DAILY 09/23/20 09/30/21 History Metoprolol Succinate [Toprol XL] 50 mg PO DAILY 09/23/20 09/30/21 History Omeprazole Magnesium [PriLOSEC OTC] 20 mg PO DAILY 09/23/20 09/30/21 History calcitrioL [Calcitriol] 0.25 mcg PO MOWEFR 09/23/20 09/30/21 History Allergies Allergy/AdvReac Type Severity Reaction Status Date / Time Sulfa (Sulfonamide Allergy Rash/Hives Verified 09/30/21 12:30 Antibiotics) NSAIDS (Non-Steroidal AdvReac NO NSAIDS Verified 09/30/21 12:30 Anti-Inflamma DUE TO ONLY 1 KIDNEY Physical Exam Vitals: Vital Signs Temp Pulse Pulse Resp BP Pulse Ox 09/30/21 11:59 55 L 16 141/89 09/30/21 11:35 60 18 125/81 09/30/21 11:30 67 18 133/80 09/30/21 11:25 61 18 136/80 09/30/21 11:00 56 L 18 130/74 97 09/30/21 10:49 58 L 56 L 18 141/85 09/30/21 10:19 97.5 F L 58 L 18 152/83 98 Intake and Output 09/29/21 09/30/21 09/30/21 22:59 06:59 14:59 Other: Weight 88.451 kg Results 09/30/21 10:53 09/30/21 10:53 Cardiac Enzymes 09/30/21 09/30/21 Range/Units 10:53 10:53 AST 22 (14-36) U/L Troponin I <0.012 (0.000-0.034) ng/mL Coagulation 09/30/21 Range/Units 10:53 PT 10.4 (9.0-12.0) sec APTT 23.8 (22.0-30.0) sec CBC 09/30/21 Range/Units 10:53 WBC 10.1 (3.8-10.6) k/uL RBC 4.41 (3.80-5.40) m/uL Hgb 12.9 (11.4-16.0) gm/dL Hct 40.2 (34.0-46.0) % Plt Count 242 (150-450) k/uL Comprehensive Metabolic Panel 09/30/21 Range/Units 10:53 Sodium 141 (137-145) mmol/L Potassium 4.3 (3.5-5.1) mmol/L Chloride 109 H (98-107) mmol/L Carbon Dioxide 25 (22-30) mmol/L BUN 25 H (7-17) mg/dL Creatinine 1.13 H (0.52-1.04) mg/dL Glucose 115 H (74-99) mg/dL Calcium 8.9 (8.4-10.2) mg/dL AST 22 (14-36) U/L ALT 18 (4-34) U/L Alkaline Phosphatase 106 (38-126) U/L Total Protein 7.3 (6.3-8.2) g/dL Albumin 3.8 (3.5-5.0) g/dL Current Medications Generic Name Dose Route Start Last Admin Trade Name Freq PRN Reason Stop Dose Admin Alprazolam 0.5 mg 09/30/21 12:40 Alprazolam 0.5 Mg Tab PO TID PRN Anxiety Aspirin 81 mg 10/01/21 09:00 Aspirin 81 Mg PO DAILY ZAC Atorvastatin Calcium 40 mg 10/01/21 09:00 Atorvastatin 40 Mg Tab PO DAILY ZAC Calcitriol 0.25 mcg 10/01/21 09:00 Calcitriol 0.25 Mcg Cap PO MOWEFR PENDING SALE TO [facility] Citalopram Hydrobromide 40 mg 10/01/21 09:00 Citalopram Hydrobromide 20 Mg Tab PO DAILY PENDING SALE TO [facility] Ergocalciferol 1,250 mcg 10/15/21 09:00 Ergocalciferol 1,250 Mcg (50,000 Iu) Capsule PO QMONTHLY ZAC Heparin Sodium (Porcine) 0 unit 09/30/21 11:47 Heparin Sodium 1,000 Un/Ml (10ml Vl) IV PER PROTOCOL PRN Low PTT Protocol Heparin Sodium/Sodium Chloride 250 mls @ 9.995 mls/hr 09/30/21 12:00 09/30/21 12:09 25,000 unit/ Sodium Chloride IV 11.3 units/kg/hr .Q24H ZAC 9.995 mls/hr Administration Protocol 11.3 UNITS/KG/HR Sodium Chloride 1,000 mls @ 130 mls/hr 09/30/21 12:45 Saline 0.9% IV .Q7H42M PENDING SALE TO [facility] Levothyroxine Sodium 137 mcg 10/01/21 06:30 Levothyroxine 137 Mcg Tab PO DAILY@0630 PENDING SALE TO [facility] Metoprolol Succinate 50 mg 10/01/21 09:00 Metoprolol Succinate (Er) 50 Mg Tab.Er.24h PO DAILY PENDING SALE TO [facility] Naloxone HCl 0.2 mg 09/30/21 12:43 Naloxone 0.4 Mg/Ml 1 Ml Vial IV Q2M PRN Opioid Reversal Pantoprazole Sodium 40 mg 10/01/21 07:30 Pantoprazole 40 Mg Tablet PO AC-BRKFST PENDING SALE TO [facility] Intake and Output 09/29/21 09/30/21 09/30/21 22:59 06:59 14:59 Other: Weight 88.451 kg Patient Weight 10/01/21 06:59 Weight 88.451 kg 09/30/21 10:53 09/30/21 10:53
[2021-09-30] MEDS: LIDOCAINE 5% PATCH TOPICAL SCH (16:58)
[2021-09-30] MEDS ORDERED: MORPHINE SULFATE 2 MG/ML SYRINGE IVP STA (20:48)
[2021-10-01] MEDS ORDERED: LEVOTHYROXINE 137 MCG TAB PO SCH (06:30)
[2021-10-01 07:28] VITALS: BP 132/74; PULSE 59; RESP 15; TEMP 97.5
[2021-10-01] MEDS ORDERED: PANTOPRAZOLE 40 MG TABLET PO SCH (07:30)
[2021-10-01] MEDS ORDERED: ASPIRIN 81 MG PO SCH (09:00)
[2021-10-01] MEDS ORDERED: ATORVASTATIN 40 MG TAB PO SCH (09:00)
[2021-10-01] MEDS ORDERED: CITALOPRAM HYDROBROMIDE 20 MG TAB PO SCH (09:00)
[2021-10-01] MEDS ORDERED: METOPROLOL SUCCINATE (ER) 50 MG TAB.ER.24H PO SCH (09:00)
[2021-10-01] MEDS: LIDOCAINE 5% PATCH TOPICAL SCH (09:10)
--- NOTE | 2021-10-01 09:33 | CA ---
Transthoracic Echo Report Name: Annamaria Humphrey Age: 66 Gender: F : 1955 Exam Date: 09/30/2021 14:11 Exam Location: [facility] Ht (in): 66 Wt (lb): 195 Ordering Physician: Gladys Landers MD Attending/Referring Phys: Conduit Mechanic Antonella Rodriguez RDCS Procedure CPT: Indications: Chest Pain Cardiac Hx: Technical Quality: Good Contrast 1: Total Dose (mL): Contrast 2: Total Dose (mL): MEASUREMENTS (Male / Female) Normal Values 2D ECHO LV Diastolic Diameter PLAX 4.2 cm 4.2 - 5.9 / 3.9 - 5.3 cm LV Systolic Diameter PLAX 2.3 cm IVS Diastolic Thickness 0.8 cm 0.6 - 1.0 / 0.6 - 0.9 cm LVPW Diastolic Thickness 1.4 cm 0.6 - 1.0 / 0.6 - 0.9 cm LV Relative Wall Thickness 0.5 RV Internal Dim ED PLAX 2.4 cm M-MODE Aortic Root Diameter MM 2.9 cm LA Systolic Diameter MM 2.6 cm LA Ao Ratio MM 0.9 MV E Point Septal Separation 0.4 cm AV Cusp Separation MM 1.8 cm DOPPLER AV Peak Velocity 80.1 cm/s AV Peak Gradient 2.6 mmHg MV Area PHT 4.4 cm??? MR Peak Velocity 74.9 cm/s MR Peak Gradient 2.2 mmHg Mitral E Point Velocity 90.7 cm/s Mitral A Point Velocity 90.7 cm/s Mitral E to A Ratio 1.0 MV Deceleration Time 171.3 ms TR Peak Velocity 144.8 cm/s TR Peak Gradient 8.4 mmHg Right Ventricular Systolic Press 12.6 mmHg FINDINGS Left Ventricle Moderately increased posterior wall thickness. Left ventricular ejection fraction is estimated at 55-60 %left ventricular cavity size normal. Right Ventricle Normal right ventricular size and function. Right Atrium Normal right atrial size. Left Atrium Normal left atrial size. Mitral Valve Structurally normal mitral valve without significant stenosis or prolapse. There is trace mitral regurgitation. Aortic Valve Structurally normal aortic valve without significant sclerosis or stenosis. There is no aortic regurgitation. Tricuspid Valve Structurally normal tricuspid valve without significant stenosis. Pulmonary artery systolic pressure is normal. Trace tricuspid regurgitation. Pulmonic Valve Structurally normal pulmonic valve without significant stenosis. There is no pulmonic regurgitation. Pericardium Normal pericardium without effusion. Aorta Normal aortic root dimension. CONCLUSIONS Normal LV size and systolic function with mild concentric LVH. Minimal mitral insufficiency. No pericardial effusion Previewed by: Dr. Eduarda Santa MD (Electronically Signed) Final Date: 01 October 2021 09:32
--- NOTE | 2021-10-01 09:52 | P.PN ---
Subjective Progress Note Date: 10/01/21 HISTORY OF PRESENT ILLNESS: This is a 66-year-old female with a past medical history significant for hypertension, hyperlipidemia, and hypothyroidism. Patient follows in the office with Dr. Bright. We have been asked to see the patient in consultation for chest pain. Patient examined at the bedside in the ER. The patient states she was at [facility] today for a consultation regarding her back pain. She states she didnt feel quite right so she asked a staff member there to check her blood pressure and it was found to be 180s/110s. She was directed to the ER for further evaluation. She also reports having some mild chest discomfort in the middle of her chest and under her right breast. She continues to have discomfort at the time of my examination. No radiation of the pain. She reports pain with chest wall palpation. Her blood pressure has been stable since coming to the ER. * EKG reveals sinus mechanism with no signs of acute ischemia * Chest xray no acute process. COPD. Mild central interstitial chronic lung disease in the differential diagnosis. * Laboratory data: WBC 10.1. Hemoglobin 12.9. Platelet count 242. D-dimer 1.06. BUN 25. Creatinine 1.13. Troponin negative 1. ProBNP 294. * Current home cardiac medications include metoprolol succinate 50 mg daily, Lipitor 40 mg daily, and aspirin 81 mg daily * Most recent echocardiogram obtained in September 2018 revealed ejection fraction 60-65%, moderate mitral regurgitation, mild tricuspid regurgitation * Cardiac catheterization history: September 2018 revealing no critical lesions. Moderate lesion of circumflex was unremarkable based on fractional flow reserve assessment. FFR was 0.95 and IFR was 0.98. 10/01/2021 Patient examined this morning at the bedside. Patient continues to report reproducible chest pain. She underwent CTA which was negative for pulmonary embolism. An echocardiogram completed revealing ejection fraction 55-60%, trace MR, trace TR. Troponins are negative 3. PHYSICAL EXAM: VITAL SIGNS: Reviewed. GENERAL: Well-developed in no acute distress. HEENT: Head is normocephalic. Pupils are equal, round. Sclerae anicteric. Mucous membranes of the mouth are moist. Neck supple. No JVD or thyromegaly LUNGS: Respirations even and unlabored. Lungs essentially clear to auscultation bilaterally. HEART: Regular rate and rhythm. S1 and S2 heard. ABDOMEN: Soft. Nondistended. Nontender. EXTREMITIES: Normal range of motion. No clubbing or cyanosis. Peripheral pulses intact. No lower extremity edema NEUROLOGIC: Awake and alert. Oriented x 3. ASSESSMENT: Chest pain, atypical, reproducible with palpation Nonobstructive coronary artery disease History of renal cancer with left nephrectomy Hypertension Hyperlipidemia Hypothyroidism PLAN: Continue current cardiac medications 2-D echo obtained and reviewed Patient is stable for discharge home today from a cardiac standpoint She is to follow up outpatient with Dr. Bright for possible outpatient stress testing Nurse practitioner note has been reviewed by physician. Signing provider agrees with the documented findings, assessment, and plan of care. Objective - Vital Signs Vital signs: Vital Signs Temp 97.5 F L 10/01/21 07:00 Pulse 59 L 10/01/21 07:00 Resp 15 10/01/21 07:00 BP 132/74 10/01/21 07:00 Pulse Ox 98 10/01/21 07:00 FiO2 Intake & Output 09/30/21 10/01/21 10/01/21 18:59 06:59 18:59 Intake Total 166.976 Balance 166.976 Weight 88.451 kg Intake: Intake, IV Titration 48.976 Amount Heparin Sod,Pork in 0.45% 48.976 NaCl 25,000 unit In 0.45 % NaCl 1 250ml.bag @ 11.3 UNITS/KG/HR 9.995 mls/hr IV .Q24H [facility] Rx#: [id number] Oral 118 Other: Voiding Method Toilet # Voids 2 - Labs CBC & Chem 7: 09/30/21 10:53 09/30/21 10:53 Labs: Abnormal Lab Results - Last 24 Hours (Table) 09/30/21 09/30/21 09/30/21 Range/Units 10:53 10:53 10:53 Neutrophils # 8.4 H (1.3-7.7) k/uL APTT (22.0-30.0) sec D-Dimer 1.06 H (<0.60) mg/L FEU Chloride 109 H (98-107) mmol/L BUN 25 H (7-17) mg/dL Creatinine 1.13 H (0.52-1.04) mg/dL Glucose 115 H (74-99) mg/dL 09/30/21 Range/Units 18:15 Neutrophils # (1.3-7.7) k/uL APTT 30.5 H (22.0-30.0) sec D-Dimer (<0.60) mg/L FEU Chloride (98-107) mmol/L BUN (7-17) mg/dL Creatinine (0.52-1.04) mg/dL Glucose (74-99) mg/dL
--- NOTE | 2021-10-01 12:33 | P.DS ---
Providers Date of admission: 09/30/21 12:47 Expected date of discharge: 10/01/21 Attending physician: Gladys Landers MD Consults: 09/30/21 12:43 Consult Physician Routine Consulting Provider: Walter Lobo Consult Reason/Comments: chest pain Do you want consulting provider notified?: Yes Primary care physician: [facility] Course: Chest pain, atypical, likely musculoskeletal Nausea Hypertension Hyperlipidemia Hypothyroidism Depression 66-year-old woman with a medical history of renal cell cancer status post nephrectomy, hypertension, hyperlipidemia, hypothyroidism, depression presented for evaluation of chest pressure, nausea. In the emergency room, patient was afebrile, 130/74, heart rate 56, 97% on room air. CBC was unremarkable. Chemistries show a BUN/creatinine of 25/1.13 which represents her baseline. LFTs are unremarkable. BNP was 294, troponin was less than 0.012. Coags were unremarkable. D-dimer was elevated at 1.06. Chest x-ray was clear, however, it did note hyperinflation and mild interstitial prominence concerning for COPD changes. EKG was normal sinus rhythm with no ischemic changes. CT of the chest was ordered to rule out pulmonary embolism was negative for pulmonary embolism did show eczematous changes consistent with COPD. patient was seen by cardiology, who cleared the patient after patient had negative troponins and was noted to have reproducible chest pain on exam. She'll follow up with primary care physician as well as cardiology. Gen: in no apparent distress, resting comfortably in bed Eyes: PERRL, no scleral injection or icterus HENT: normocephalic, atraumatic, good hearing acuity, moist mucous membranes Neck: no tracheal deviation, full range of motion Resp: good air exchange, breathing comfortably with no accessory muscle use, no tactile fremitus CVS: good distal perfusion x 4, no pitting edema GI: soft, NTTP, ND, no hepatosplenomegaly : no suprapubic tenderness, no CVAT, hernandez catheter not present MSK: no clubbing, no cyanosis, no noted contractures of extremities, reproducible chest pain to palpation Skin: no noted rashes, petechiae; temperature of skin is appropriate Neuro: moving all extremities without signs of weakness, CN II-XII intact Psych: cooperative, euthymic mood, insight and judgment intact Patient Condition at Discharge: Good Plan - Discharge Summary Discharge Rx Participant: No New Discharge Prescriptions: New Lidocaine 5% Patch [Lidoderm 5% Patch] 1 patch TOPICAL DAILY #30 patch Acetaminophen Tab [Tylenol] 650 mg PO Q4HR PRN tab PRN Reason: Fever And/ Or Pain Continue Citalopram Hydrobromide [CeleXA] 40 mg PO DAILY ALPRAZolam [Xanax] 0.5 mg PO TID PRN PRN Reason: Anxiety Ergocalciferol (Vitamin D2) [Drisdol (50,000 Iu)] 50,000 unit PO QMONTH Atorvastatin [Lipitor] 40 mg PO DAILY Levothyroxine Sodium 137 mcg PO DAILY Metoprolol Succinate [Toprol XL] 50 mg PO DAILY calcitrioL [Calcitriol] 0.25 mcg PO MOWEFR Omeprazole Magnesium [PriLOSEC OTC] 20 mg PO DAILY Aspirin [Adult Low Dose Aspirin EC] 81 mg PO DAILY Discharge Medication List ALPRAZolam [Xanax] 0.5 mg PO TID PRN 07/08/17 [History] Citalopram Hydrobromide [CeleXA] 40 mg PO DAILY 07/08/17 [History] Ergocalciferol (Vitamin D2) [Drisdol (50,000 Iu)] 50,000 unit PO QMONTH 05/25/18 [History] Aspirin [Adult Low Dose Aspirin EC] 81 mg PO DAILY 09/23/20 [History] Atorvastatin [Lipitor] 40 mg PO DAILY 09/23/20 [History] Levothyroxine Sodium 137 mcg PO DAILY 09/23/20 [History] Metoprolol Succinate [Toprol XL] 50 mg PO DAILY 09/23/20 [History] Omeprazole Magnesium [PriLOSEC OTC] 20 mg PO DAILY 09/23/20 [History] calcitrioL [Calcitriol] 0.25 mcg PO MOWEFR 09/23/20 [History] Acetaminophen Tab [Tylenol] 650 mg PO Q4HR PRN tab 10/01/21 [Rx] Lidocaine 5% Patch [Lidoderm 5% Patch] 1 patch TOPICAL DAILY #30 patch 10/01/21 [Rx] Follow up Appointment(s)/Referral(s): Edmar Holder III, MD [Primary Care Provider] - 1-2 days Arnulfo Bright MD [STAFF PHYSICIAN] - 10/08/21 11:30 am Discharge Disposition: HOME SELF-CARE
[2021-10-15] MEDS ORDERED: ERGOCALCIFEROL 1,250 MCG (50,000 IU) CAPSULE PO SCH (09:00)
== END 2021-10-01 11:05 | disposition home or self-care (01) ==
LOC: EC 10:15 → 6NMEDSUR 12:47
PROVIDERS: ADMIT Internal Medicine; ATTEND Internal Medicine
DX: R07.89 Other chest pain (principal); R11.0 Nausea; R79.89 Other specified abnormal findings of blood chemistry; I10 Essential (primary) hypertension; E03.9 Hypothyroidism, unspecified; R00.1 Bradycardia, unspecified; I25.10 Atherosclerotic heart disease of native coronary artery without angina pectoris; E78.5 Hyperlipidemia, unspecified; I25.2 Old myocardial infarction; K21.9 Gastro-esophageal reflux disease without esophagitis; G43.909 Migraine, unspecified, not intractable, without status migrainosus; K57.90 Diverticulosis of intestine, part unspecified, without perforation or abscess without bleeding; M54.50 Low back pain, unspecified; F32.A Depression, unspecified; Z79.82 Long term (current) use of aspirin; Z79.890 Hormone replacement therapy; Z79.899 Other long term (current) drug therapy; Z88.2 Allergy status to sulfonamides; Z88.6 Allergy status to analgesic agent; Z87.01 Personal history of pneumonia (recurrent); Z87.11 Personal history of peptic ulcer disease; Z86.010 Personal history of colon polyps; Z85.528 Personal history of other malignant neoplasm of kidney; Z90.5 Acquired absence of kidney; Z87.891 Personal history of nicotine dependence; Z98.51 Tubal ligation status; Z98.890 Other specified postprocedural states
CPT/HCPCS: 96376 ×2; 96366 ×2; 96361; 96365; 96375; 99285; 36415; 93005; 93306; 85379; 83880; 80053; 83735; 84484; 85025; 85610; 85730; 71046; 71275; G0378 ×2; J2270 ×2; J2405; J1644 ×2; Q9967

== ENCOUNTER → 2021-11-05 | Outpatient (CLI) | payer MEDICARE, OTHER ==
--- NOTE | 2021-11-05 13:52 | P.PN ---
Subjective DATE: 11/05/2021 FOLLOW UP VISIT. Patient with obstructive sleep apnea hypopnea syndrome return to sleep center for follow-up visit. Information from previous visit have been reviewed. Patient is using PAP equipment every night for the whole night, getting PAP supplies in time. The patient does not have significant problems with the mask, PAP unit and humidification. [place] sleepiness scale is 4. I checked information from PAP unit. PAP unit pressure 5-10, average 9.8 cm H2O. Usage is 97 % for more then 4 hours, average 6 hours per night. Leak is 34.5 l/m, which is in acceptable range. Apnea Hypopnea Index is 5.6 , which is normal. Patient still has sometimes episodes of out of dream movements while she is on treatment with the clonazepam 0.5 mg at bedtime MEDICATIONS:1. []levothyroxine 137 g once a day 2. Metoprolol 50 mg once a day 3. Celexa 40 mg once a day 4. Omeprazole 20 mg once a day 5. Lipitor 40 mg once a day 6. Xanax 3 times a day 7. Clonazepam 0.5 mg at bedtime During physical exam: GENERAL: A pleasant patient without any distress. VITAL SIGNS: BP 115/76, HR 65, RR 18 , weight 203.2, temperature 96.4, oxygen saturation at room air 98 % . HEENT: PERRLA, EOMI.low position of soft palate, Mallapati 3-4 . NECK: Supple. No JVD. LUNGS: Clear to percussion and to auscultation. Good air exchange. No wheezing or rhonchi. HEART: S1, S2 regular. ABDOMEN: Soft and nontender. Obese EXTREMITIES: No clubbing or cyanosis. DOLPHIN RESEARCHER: Awake, alert, and oriented x3. No focal deficit. Impressions: 1. Obstructive sleep apnea-hypopnea syndrome. Patient demonstrated great compliance with treatment, benefiting from treatment. Apnea-hypopnea index slightly increased to 5.6. 2. Episodes of out of dream movements possibly REM sleep behavior disorder, patient still occasionally has episodes of movements while on treatment with clonazepam 0.5 mg at bedtime. 3. Hypertension. 4. History of myocardial infarction. 5. History of sleep talking. 6. Obesity. 7. History of left kidney CA status post nephrectomy. 8. Status post lumbar decompression surgery. Plan: 1. Continue using PAP equipment every night for the whole night. I increased level of CPAP pressure to the range of 512 centimeters of water. 2. To increase dose of Clonazepam to 0.75 mg at bedtime to prevent episodes of REM sleep behavior disorder. 3. PAP unit should stay lower then position of the head. 4. Advised patient to remove all remaining water from humidifier canister daily and make it dry after each usage. Refill canister with fresh distilled water be fore each usage. 5. Sleep hygiene with regular time in bed for at least 8 hours. 6. Precautions related to driving. No driving if feel any sleepiness. 7. I will maintain prescription for PAP supplies including mask, tube, filters. 8. Follow up visit in 6 months or earlier if patient has any problems. 9. Watching and losing weight. Thank you very much for allowing me to participate in the management of your patient. Cayetano Rush MD, PhD, FAASM. Diplomat of [employer], Sleep Medicine Board by [employer] Corporate Planner of [facility] [place]
== END ==
LOC: SLEEP 13:04
PROVIDERS: ATTEND Internal Medicine
DX: G47.33 Obstructive sleep apnea (adult) (pediatric) (principal); I10 Essential (primary) hypertension; I25.2 Old myocardial infarction; E66.9 Obesity, unspecified; Z98.890 Other specified postprocedural states; Z99.89 Dependence on other enabling machines and devices; Z88.2 Allergy status to sulfonamides; Z88.6 Allergy status to analgesic agent; Z85.528 Personal history of other malignant neoplasm of kidney
CPT/HCPCS: 99212

== ENCOUNTER → 2021-12-11 | Outpatient (CLI) | payer MEDICARE ==
[2021-12-11 10:28] LABS: HCT 39.7 % (34.0-46.0); HGB 12.5 gm/dL (11.4-16.0); MCH 28.2 pg (25.0-35.0); MCHC 31.5 g/dL (31.0-37.0); MCV 89.7 fL (80.0-100.0); Platelet Count 239 k/uL (150-450); RBC 4.42 m/uL (3.80-5.40); RDW 12.9 % (11.5-15.5); WBC 7.1 k/uL (3.8-10.6)
[2021-12-11 10:39] LABS: Potassium 4.2 mmol/L (3.5-5.1)
--- NOTE | 2021-12-12 08:15 | MM ---
Reason for Exam: Screening (asymptomatic). Last mammogram was performed 6 year(s) and 2 month(s) ago. Patient History: Menarche at age 14. First Full-Term at age 23. Postmenopausal. Risk Values: Elinor 5 year model risk: 1.5%. NCI Lifetime model risk: 5.6%. Prior Study Comparison: 05/08/2013 Bilateral Screening Mammogram, [facility]. 05/11/2013 Left Diagnostic Mammogram, [facility]. 10/17/2015 Bilateral Screening Mammogram, [facility]. Tissue Density: The breast tissue is heterogeneously dense. This may lower the sensitivity of mammography. Findings: Analyzed By CAD. There is no suspicious group of microcalcifications or new suspicious mass in either breast. Stable chronic nodularity in the left breast. No significant change from prior exams. Overall Assessment: Benign, BI-RAD 2 Management: Screening Mammogram of both breasts in 1 year. A clinical breast exam by your physician is recommended on an annual basis and results should be correlated with mammographic findings. Electronically signed and approved by: Gerardo Mcclelland D.O.
== END | disposition home or self-care (01) ==
LOC: RADBDWWP 09:10
PROVIDERS: ATTEND Family Medicine
DX: Z12.31 Encounter for screening mammogram for malignant neoplasm of breast (principal); Z13.820 Encounter for screening for osteoporosis; R00.1 Bradycardia, unspecified
CPT/HCPCS: 77063; 77067; 80048; 84443; 85027

== ENCOUNTER → 2022-02-25 | Outpatient (CLI) | payer MEDICARE ==
--- NOTE | 2022-02-25 13:25 | US ---
EXAMINATION TYPE: US thyroid st tissue head/neck DATE OF EXAM: 02/25/2022 COMPARISON: NONE CLINICAL HISTORY: E04.1 THYROID NODULE, E03.9 HYPOTHYROIDISM. Hypothyroid/ pt states she has been on thyroid meds x many years GLAND SIZE: Right Lobe: 4.6 x 1.6 x 1.2 cm Overall Parenchyma: heterogenous Left Lobe: 4.4 x 2.0 x 1.2 cm Overall Parenchyma: heterogeneous Isthmus Thickness: 0.4 cm Bilateral neck scanned, no evidence of lymphadenopathy. No evidence of nodules bilaterally/ Bilateral thyroid hypoechoic, lobulated "Cobblestone appearance", and heterogeneous IMPRESSION: Diffusely heterogenous thyroid lobes without distinct nodule. Correlate clinically with thyroid funct ion testing. 2017 ACR TI-RADS LEVEL: *Highest TI-RADS level nodule reported
== END | disposition home or self-care (01) ==
LOC: RADUSWWP 10:49
PROVIDERS: ATTEND Family Medicine
DX: E04.1 Nontoxic single thyroid nodule (principal); E03.9 Hypothyroidism, unspecified
CPT/HCPCS: 76536

== ENCOUNTER → 2022-03-12 | Outpatient (CLI) | payer MEDICARE ==
--- NOTE | 2022-03-12 17:21 | P.PN ---
Subjective DATE: 03/12/2022 FOLLOW UP VISIT. Patient with obstructive sleep apnea hypopnea syndrome return to sleep center for follow-up visit. Information from previous visit have been reviewed. Patient continued to use sure CPAP equipment but presently developed more problems. She has cough at night while using CPAP. She feels that pressure is too high for her. [place] sleepiness scale is 7, which is normal. I checked information from PAP unit. PAP unit pressure 5-12, average 11.4 cm H2O. Usage is 100% and 73 % for more then 4 hours, average 6.3 hours per night. Leak is slightly high 35 l/m. Apnea Hypopnea Index is borderline 5.3. MEDICATIONS:1. Prilosec 2. Eliquis 3. Celexa 40 mg once a day 4. Lipitor 40 mg once a day 5. Levothyroxine 137 g once a day 6. Xanax 7. Clonazepam 0.75 mg at bedtime During physical exam: GENERAL: A pleasant patient without any distress. VITAL SIGNS: BP 111/77, HR 104, RR 16 , weight 194, temperature 97.2, oxygen saturation at room air 93 % . HEENT: PERRLA, EOMI.low position of soft palate, Mallapati 34 . NECK: Supple. No JVD. LUNGS: Clear to percussion and to auscultation. Good air exchange. No wheezing or rhonchi. HEART: S1, S2 regular. ABDOMEN: Soft and nontender. Slightly obese EXTREMITIES: No clubbing or cyanosis. CASH SPECIALIST: Awake, alert, and oriented x3. No focal deficit. Impressions: 1. Obstructive sleep apnea-hypopnea syndrome. Patient demonstrated goad compliance with treatment, benefiting from treatment. Patient feels that pressure is slightly high., which gave difficulties with usage of CPAP. 2. Hypertension. 3. Possibly REM sleep behavior disorder, improved on clonazepam. 4. History of myocardial infarction. 5. Obesity. 6. Status post left kidney nephrectomy for cancer. 7. Status post lumbar decompression surgery. Plan: 1. Continue using PAP equipment every night for the whole night. I decreased pressure in CPAP unit to the range 510 centimeters of water. 2. To change air filter at least 1-2 times per month. 3. PAP unit should stay lower then position of the head. 4. Advised patient to remove all remaining water from humidifier canister daily and make it dry after each usage. Refill canister with fresh distilled water before each usage. 5. Sleep hygiene with regular time in bed for at least 8 hours. 6. Precautions related to driving. No driving if feel any sleepiness. 7. I will maintain prescription for PAP supplies including mask, tube, filters. 8. Follow up visit in 3 months or earlier if patient has any problems. 9. Watching weight. 10. Continue clonazepam 0.75 mg daily at bedtime. Thank you very much for allowing me to participate in the management of your patient. Cayetano Rush MD, PhD, FAASM. Diplomat of [place] [employer], Sleep Medicine Board by [place] [employer] Candy Maker Helper of [facility] [place]
== END ==
LOC: SLEEP 15:06
PROVIDERS: ATTEND Internal Medicine
DX: G47.33 Obstructive sleep apnea (adult) (pediatric) (principal); I10 Essential (primary) hypertension; Z99.89 Dependence on other enabling machines and devices; E66.9 Obesity, unspecified; Z98.890 Other specified postprocedural states; I21.9 Acute myocardial infarction, unspecified; Z88.2 Allergy status to sulfonamides; Z88.6 Allergy status to analgesic agent; Z87.891 Personal history of nicotine dependence

== ENCOUNTER → 2022-06-11 | Outpatient (CLI) | payer MEDICARE ==
--- NOTE | 2022-06-11 15:33 | P.PN ---
Subjective DATE: 06/11/2022 FOLLOW UP VISIT. Patient with obstructive sleep apnea hypopnea syndrome return to sleep center for follow-up visit. Information from previous visit have been reviewed. Patient continued to have episodes of very strong and loud cough especially if laying down, which creates significant problems for her to use CPAP equipment to the present time. Cough does not related to usage of CPAP may happen during the day too. Patient is in the process of evaluation for that episodes. [place] sleepiness scale is 1, which is perfect. I checked information from PAP unit. PAP unit pressure 5-10, average 9.3 cm H2O. Usage is on the several nights for the last months. Leak is 15.5 l/m, which is in acceptable range. Apnea Hypopnea Index is slightly increased to 7.8. MEDICATIONS:1. Eliquis 2. Celexa 40 mg once a day 3. Lipitor 40 mg once a day 4. Levothyroxine 137 g once a day 5. Xanax 6. Clonazepam 0.75 mg at bedtime During physical exam: GENERAL: A pleasant patient without any distress. VITAL SIGNS: BP 95/65, HR 110, RR 16, weight 199.4, temperature 98.1, oxygen saturation at room air 94 % . HEENT: PERRLA, EOMI.low position of soft palate, Mallapati 34. NECK: Supple. No JVD. LUNGS: Clear to percussion and to auscultation. Good air exchange. HEART: S1, S2 regular. ABDOMEN: Soft and nontender. Slightly obese EXTREMITIES: No clubbing or cyanosis. FLORAL DESIGNER: Awake, alert, and oriented x3. No focal deficit. Impressions: 1. Obstructive sleep apnea-hypopnea syndrome. Patient has difficulties to use CPAP equipment at the present time secondary to episodes of coughing. 2. Hypertension. 3. History of [place]. 4. Possibly REM sleep behavior disorder, improved on clonazepam. 5. Obesity, BMI 33.1. 6. Status post left nephrectomy for cancer. 7. Status post lumbar decompression surgery. 8. Episodes of coughing. 9. Possible acid reflux. Plan: 1. Continue using PAP equipment. 2. To change air filter at least 1-2 times per month. 3. PAP unit should stay lower then position of the head. 4. To avoid hot or cold food or drink. 5. Sleep hygiene with regular time in bed for at least 8 hours. 6. Precautions related to driving. No driving if feel any sleepiness. 7. I will maintain prescription for PAP supplies including mask, tube, filters. 8. .Watching and losing weight. 9. Follow up visit in 2-3 months or earlier if patient has any problems. Thank you very much for allowing me to participate in the management of your patient. Cayetano Rush MD, PhD, FAASM. Diplomat of [place] [employer], Sleep Medicine Board by [place] [employer] Liability Analyst of [facility] [place]
== END ==
LOC: SLEEP 14:47
PROVIDERS: ATTEND Internal Medicine
DX: G47.33 Obstructive sleep apnea (adult) (pediatric) (principal); I10 Essential (primary) hypertension; E66.9 Obesity, unspecified; I25.2 Old myocardial infarction; Z68.33 Body mass index [BMI] 33.0-33.9, adult; Z79.899 Other long term (current) drug therapy; Z90.5 Acquired absence of kidney; Z98.890 Other specified postprocedural states; Z99.89 Dependence on other enabling machines and devices; Z88.2 Allergy status to sulfonamides; Z88.6 Allergy status to analgesic agent; Z87.891 Personal history of nicotine dependence
CPT/HCPCS: 99212

== ENCOUNTER 2022-09-01 08:59 | Day surgery (SDC) | payer MEDICARE ==
[~2022-09-01 08:59] MED LIST changes: -HEPARIN SODIUM 1,000 UN/ML (10ML VL) IV ONE; +LACTATED RINGERS 1,000 ML IV SCH; +LIDOCAINE 1% (10MG/ML) FOR IV START INTRADERMA PRN
[2022-09-01 09:36] VITALS: TEMP 96.6
[2022-09-01] MEDS ORDERED: ONDANSETRON 4 MG/2 ML VIAL ONE (09:46)
[2022-09-01] MEDS ORDERED: ONDANSETRON 4 MG/2 ML VIAL IVP ONE (09:54)
[2022-09-01] MEDS ORDERED: DEXAMETHASONE SOD PHOSPHATE 4 MG/ML 1 ML VIAL IVP ONE (09:54)
[2022-09-01] MEDS ORDERED: PROPOFOL 10 MG/ML 20 ML VIAL IV ONE (09:55)
[2022-09-01] MEDS ORDERED: LIDOCAINE 2% INJ 20 MG/ML (2 ML VIAL) ONE (09:55)
--- NOTE | 2022-09-01 10:00 | P.GSHP ---
History of Present Illness H&P Date: 09/01/22 Chief Complaint: GERD 67-year-old female here for evaluation of chronic cough and reflux. Describes mild dysphagia at times as well. She has had a previous upper endoscopy. Past Medical History Past Medical History: Cancer, Chest Pain / Angina, GERD/Reflux, Hypertension, Myocardial Infarction ([place]), Pneumonia, Thyroid Disorder Additional Past Medical History / Comment(s): "2012 electrical heart attack", PU D, hypothyroid, low back pain, past migraines, lt foot fx with surgery, rib fx, diverticulosis dx/benign polyp.stress test 02-17-17, lt kidney ca(sx) one kidney Last Myocardial Infarction Date:: 2012 History of Any Multi-Drug Resistant Organisms: None Reported Past Surgical History: Back Surgery, Heart Catheterization, Orthopedic Surgery, Tonsillectomy, Tubal Ligation Additional Past Surgical History / Comment(s): 2012 cardiac cath-normal x2, 01/11/17 colonoscopy/benign polypectomy, ORIF LT FT, back x2, "lt NEPHRECTOMY d/t cancer". 09/30-heart cath-clear. dehiscence of incision with kidney surgery trigger finger repair rt hand Past Anesthesia/Blood Transfusion Reactions: No Reported Reaction Additional Past Anesthesia/Blood Transfusion Reaction / Comment(s): no hx blood transfusion severe post op nausea elevation in blood pressure aspirated lost voice x3 mos after a surgery at [facility] does not want propofol Smoking Status: Former smoker - Past Family History Mother Family Medical History: No Reported History Additional Family Medical History / Comment(s): Mother was healthy and lived to be 92 yrs. old. Father History Unknown: Yes Family Medical History: No Reported History Medications and Allergies Home Medications Medication Instructions Recorded Confirmed Type ALPRAZolam [Xanax] 0.5 mg PO TID PRN 07/08/17 09/01/22 History Citalopram Hydrobromide [CeleXA] 40 mg PO DAILY 07/08/17 09/01/22 History Ergocalciferol (Vitamin D2) 50,000 unit PO WEEKLY 05/25/18 09/01/22 History [Drisdol (50,000 Iu)] Aspirin [Adult Low Dose Aspirin EC] 81 mg PO DAILY 09/23/20 09/01/22 History Atorvastatin [Lipitor] 40 mg PO DAILY 09/23/20 09/01/22 History Levothyroxine Sodium 137 mcg PO DAILY 09/23/20 09/01/22 History Omeprazole Magnesium [PriLOSEC OTC] 20 mg PO BID 09/23/20 09/01/22 History calcitrioL [Calcitriol] 0.25 mcg PO MOTUWETHFR 09/23/20 09/01/22 History Acetaminophen Tab [Tylenol] 650 mg PO Q4HR PRN tab 10/01/21 09/01/22 Rx Sucralfate [Carafate] 1 gm PO HS 08/28/22 09/01/22 History Apixaban [Eliquis] 5 mg PO BID 09/01/22 09/01/22 History Allergies Allergy/AdvReac Type Severity Reaction Status Date / Time Sulfa (Sulfonamide Allergy Rash/Hives Verified 09/01/22 09:40 Antibiotics) NSAIDS (Non-Steroidal AdvReac NO NSAIDS Verified 09/01/22 09:40 Anti-Inflamma DUE TO ONLY 1 KIDNEY Surgical - Exam Vital Signs Temp Pulse Resp BP Pulse Ox 96.6 F L 67 16 115/73 92 L 09/01/22 09:34 09/01/22 09:34 09/01/22 09:34 09/01/22 09:34 09/01/22 09:34 Physical exam: General: Well-developed, well-nourished HEENT: Normocephalic, sclerae nonicteric Abdomen: Nontender, nondistended Extremities: No edema Neuro: Alert and oriented Assessment and Plan (1) GERD (gastroesophageal reflux disease) Narrative/Plan: Will proceed with upper endoscopy Current Visit: Yes Status: Acute Code(s): K21.9 - GASTRO-ESOPHAGEAL REFLUX DISEASE WITHOUT ESOPHAGITIS SNOMED Code(s): 774764110
--- NOTE | 2022-09-01 10:09 | P.PCN ---
Date of Procedure: 09/01/22 Procedure(s) Performed: Preoperative Dx: GERD, chronic cough Postoperative Dx: Retained food in stomach, mild gastritis, small hiatal hernia Procedure: EGD with Bx Anesthesia: Sedation Endoscopist: Dr. Herring Specimens: Antrum Endoscopic Procedure: The patient was on the endoscopy table in the left decubitus position. The Olympus gastroscope was inserted into the oropharynx and passed under direct visualization to the region of the third portion of the duodenum. From that point the scope was slowly withdrawn inspecting all surfaces carefully. There were no neoplastic inflammatory or polypoid lesions throughout the duodenum. The pylorus was widely patent. The stomach was carefully inspected. There was mild gastritis present. The patient had a large amount of retained food within the stomach consistent with probable gastroparesis. A biopsy of the antrum took place to rule out H. pylori. Retroflexion revealed a small hiatal hernia. There were no inflammatory changes in the distal esophagus. The esophagus was then carefully examined. There were no neoplastic inflammatory or polypoid lesions throughout the visualized esophagus. The patient was then taken to the recovery room in stable condition per anesthesia guidelines. Recommendations: Continue antiacid therapy. Recommend follow-up with pulmonary and or ENT for patient's complaints of cough and throat issues. Reflux certainly exacerbated by suspected gastroparesis. Minimaize THC use.
[2022-09-01 10:31] VITALS: BP 101/71; PULSE 71; RESP 18
== END 2022-09-01 10:56 | disposition home or self-care (01) ==
LOC: ORWHC2ENDO 08:59
PROVIDERS: ATTEND Surgery
DX: K29.50 Unspecified chronic gastritis without bleeding (principal); K44.9 Diaphragmatic hernia without obstruction or gangrene; K21.9 Gastro-esophageal reflux disease without esophagitis; Z98.890 Other specified postprocedural states; I20.9 Angina pectoris, unspecified; I25.2 Old myocardial infarction; I10 Essential (primary) hypertension; E03.9 Hypothyroidism, unspecified; G43.909 Migraine, unspecified, not intractable, without status migrainosus; G47.33 Obstructive sleep apnea (adult) (pediatric); F12.90 Cannabis use, unspecified, uncomplicated; Z87.11 Personal history of peptic ulcer disease; Z85.528 Personal history of other malignant neoplasm of kidney; Z87.81 Personal history of (healed) traumatic fracture; Z87.891 Personal history of nicotine dependence; Z79.82 Long term (current) use of aspirin; Z79.01 Long term (current) use of anticoagulants; Z79.890 Hormone replacement therapy; Z79.899 Other long term (current) drug therapy; Z88.2 Allergy status to sulfonamides; Z88.6 Allergy status to analgesic agent
CPT/HCPCS: 88305; 43239; J1100; J2405; J2704; J2001

== ENCOUNTER → 2022-09-24 | Outpatient (CLI) | payer MEDICARE ==
--- NOTE | 2022-09-24 16:21 | P.PN ---
Subjective DATE: 09/24/2022 FOLLOW UP VISIT. Patient returned to sleep center for follow-up visit related to treatment of obstructive sleep apnea hypopnea syndrome. Patient continued to have problems with the cuff in different positions especially Position. Patient was not able to use CPAP equipment for last several months. But presently she is better and she is related to start using CPAP equipment. Patient is on treatment with clonazepam 0.75 mg at bedtime. 9 abnormal out of dream behavioral episodes while on treatment with clonazepam. .[place] sleepiness scale is 2. MEDICATIONS:1. Celexa 40 mg once a day 2. Eliquis 3. Lipitor 40 mg once a day 4. Xanax 5. Levothyroxine 137 g once a day 6. Clonazepam 0.75 mg at bedtime During physical exam: GENERAL: A pleasant patient without any distress. VITAL SIGNS: BP 120/85, HR 101, RR 12 , weight 197.0, temperature 97.2, oxygen saturation at room air 97% . HEENT: PERRLA, EOMI. NECK: Supple. No JVD. LUNGS: Clear to percussion and to auscultation. Good air exchange. No wheezing or rhonchi. HEART: S1, S2 regular. ABDOMEN: Soft and nontender. EXTREMITIES: No clubbing or cyanosis. COMMERCIAL STRIPPER: Awake, alert, and oriented x3. No focal deficit. Impressions: 1. Obstructive sleep apnea hypopnea syndrome. 2. Possible REM sleep behavior disorder, improved on treatment with clonazepam. 3. Coronary artery disease, status post [place]. 4. Hypertension. 5. Mild obesity, BMI 32.7. 6. Status post left nephrectomy for cancer. 7. Status post lumbar decompression surgery. 8. Episodes of coughing. Plan: 1. Patient will continue treatment with clonazepam 0.75 mg at bedtime 2. Sleep hygiene with regular time in bed for at least 8 hours. 3. Patient will restart to use CPAP equipment and promised to use it every night for the whole night 4. Prescription for all necessary CPAP supplies 5. Follow up visit in 4-6 months or earlier if patient has any problems. Thank you very much for allowing me to participate in the management of your patient. Cayetano Rush MD, PhD, FAASM. Diplomat of [place] [employer], Sleep Medicine Board by [place] [employer] Weight Checker of [facility] [place]
== END ==
LOC: 3 N SLEEP 15:12
PROVIDERS: ATTEND Internal Medicine
DX: G47.33 Obstructive sleep apnea (adult) (pediatric) (principal); I10 Essential (primary) hypertension; E66.9 Obesity, unspecified; I25.10 Atherosclerotic heart disease of native coronary artery without angina pectoris; I25.2 Old myocardial infarction; Z68.32 Body mass index [BMI] 32.0-32.9, adult; Z79.890 Hormone replacement therapy; Z79.899 Other long term (current) drug therapy; Z90.5 Acquired absence of kidney; R05.9 Cough, unspecified; Z79.01 Long term (current) use of anticoagulants; Z88.2 Allergy status to sulfonamides; Z88.8 Allergy status to other drugs, medicaments and biological substances; Z87.891 Personal history of nicotine dependence
CPT/HCPCS: 99212

== ENCOUNTER → 2022-10-08 | Outpatient (CLI) | payer MEDICARE ==
[2022-10-08 20:43] LABS: ALT 23 U/L (8-44); AST 21 U/L (13-35); Albumin 4.3 d/dL (3.8-4.9); Alkaline Phosphatase 78 U/L (41-126); BUN/Creat Ratio 15.85 Ratio (12.00-20.00); Blood Urea Nitrogen 20.6 mg/dL (9.0-27.0); Calcium 9.6 mg/dL (8.7-10.3); Carbon Dioxide 23.5 mmol/L (21.6-31.8); Chloride 103 mmol/L (96-109); Globulin 3.3 d/dL (1.6-3.3); Glucose 75 mg/dL (70-110); Potassium 4.2 mmol/L (3.5-5.5); Sodium 138 mmol/L (135-145); Total Bilirubin 0.3 mg/dL (0.3-1.2); Total Protein 7.6 d/dL (6.2-8.2)
[2022-10-08 21:21] LABS: Basophils # (A) 0.03 X 10*3/uL (0.00-0.10); Basophils % (A) 0.4 %; Eosinophils # (A) 0.13 X 10*3/uL (0.04-0.35); Eosinophils % (A) 1.7 %; HCT 40.4 % (37.2-46.3); HGB 13.5 d/dL (12.0-15.0); Lymphocytes # (A) 1.85 X 10*3/uL (0.90-5.00); Lymphocytes % (A) 24.2 %; MCH 29.2 pg (27.0-32.0); MCHC 33.4 d/dL (32.0-37.0); MCV 87.3 FL (80.0-97.0); Mean Platelet Volume 11.6 FL (9.5-12.2); Monocytes # (A) 0.63 X 10*3/uL (0.20-1.00); Monocytes % (A) 8.2 %; NRBC Per 100 WBC 0 X 10*3/uL (0.00-0.01); Neutrophils # (A) 4.99 X 10*3/uL (1.80-7.70); Neutrophils % (A) 65.2 %; Platelet Count 218 X 10*3/uL (140-440); RBC 4.63 X 10*6/uL (4.10-5.20); RDW 14.5 % (11.5-14.5); WBC 7.65 X 10*3/uL (4.50-10.00)
== END | disposition home or self-care (01) ==
LOC: LABWHC1 15:47
PROVIDERS: ATTEND Urology
DX: C64.9 Malignant neoplasm of unspecified kidney, except renal pelvis (principal)
CPT/HCPCS: 36415; 80053; 85025

== ENCOUNTER → 2022-11-05 | Outpatient (CLI) | payer MEDICARE ==
[2022-11-05 14:38] LABS: African American GFR (CKD) 56 (>60 ml/min/1.73 sqM); Blood Urea Nitrogen 22 mg/dL (7-17); Non-African American GFR(CKD) 49 (>60 ml/min/1.73 sqM)
--- NOTE | 2022-11-06 08:12 | CT ---
EXAMINATION TYPE: CT ChestAbdPelvis w con DATE OF EXAM: 11/05/2022 COMPARISON: CT chest 09/30/[address] abdomen 07/12/2020 HISTORY: kidney Ca. CT DLP: 1752.0 mGycm CONTRAST: CT scan of the chest, abdomen and pelvis is performed with Oral Contrast and with IV Contrast, patien t injected with 100 cc mL of Isovue 300. CT Chest: LUNGS: The lungs are clear and free of infiltrate. Mild dependent atelectasis at the right lung base. No pulmonary nodule or mass is detected. No pleural effusion or CT evidence of interstitial lung di sease. MEDIASTINUM: Thoracic aorta is of normal caliber. The heart is not enlarged. No evidence for media stinal mass or adenopathy. HILAR STRUCTURES: No evidence for mass. No hilar adenopathy is appreciated. OTHER: No significant abnormality. CONTRAST CT ABDOMEN AND PELVIS FINDINGS: LIVER/GB: No calcified gallstones. Hypoattenuating lesion posterior segment right hepatic lobe mars uring 1.2 cm versus 1 cm previously. Ultrasound correlation advised. Also hypodense lesion posterior segment right hepatic lobe measuring 2 cm as well with complete filling on delayed images indicating hemangioma. This could be confirmed with ultrasound. No additional hepatic lesions seen. Biliary tree is of normal caliber. PANCREAS: No inflammation. No distinct mass. SPLEEN: No splenic enlargement. No lesion seen. ADRENALS: No nodule. No thickening. KIDNEYS/BLADDER: Left-sided nephrectomy change without evidence for recurrent or residual disease. T he right kidney demonstrates compensatory hypertrophy. Simple cyst lower pole right kidney measures 2 .3 cm. No hydronephrosis. No nephrolithiasis. BOWEL: Normal appendix. Normal bowel caliber. No inflammation. Moderate fecal stasis. GENITAL ORGANS: No gross abnormality. LYMPH NODES: No greater than 1cm abdominal or pelvic lymph nodes are appreciated. AORTA: No significant abnormality. OSSEOUS STRUCTURES: Severe degenerative changes lower lumbar spine. OTHER: No significant additional abnormality is seen. IMPRESSION: 1. Postoperative changes of left-sided nephrectomy without evidence for recurrent or residual mass. 2. There are 2 hepatic lesions are noted when is compatible with hemangioma. The second may be slight ly larger than on prior studies. Consider ultrasound correlation.
== END | disposition home or self-care (01) ==
LOC: RADCTMAIN 13:48
PROVIDERS: ATTEND Urology
DX: C64.9 Malignant neoplasm of unspecified kidney, except renal pelvis (principal); K76.89 Other specified diseases of liver; Z90.5 Acquired absence of kidney; Z98.890 Other specified postprocedural states
CPT/HCPCS: 82565; 84520; 71260; 74177; 36415; Q9967

== ENCOUNTER → 2023-04-01 | Outpatient (CLI) | payer MEDICARE ==
--- NOTE | 2023-04-01 14:45 | P.PN ---
Subjective DATE: 04/01/2023 FOLLOW UP VISIT. Patient with obstructive sleep apnea hypopnea syndrome r and possibly REM sleep behavior disorder eturn to sleep center for follow-up visit. Information from previous visit have been reviewed. No significant out of dream movements during the sleep while patient is on treatment with clonazepam 0.75 mg at bedtime. Patient is using PAP equipment every night for the whole night, getting PAP supplies in time. The patient does not have significant problems with the mask, PAP unit and humidification. [place] sleepiness scale is 3, which is normal. I checked information from PAP unit. PAP unit pressure 5-10, average 9.7 cm H2O. Usage is 94% for more then 4 hours, average 8.8 hours per night. Leak is 13 l/m, which is in acceptable range. Apnea Hypopnea Index is 2.9, which is normal. MEDICATIONS:1. Clonazepam 0.75 mg at bedtime 2. Levothyroxine 137 g once a week 3. Celexa 40 mg once a day 4. Eliquis 5. Lipitor 40 mg once a day During physical exam: GENERAL: A pleasant patient without any distress. VITAL SIGNS: BP 117/78, HR 96, RR 12, weight 198.6, temperature 98.1, oxygen saturation at room air 96 % . HEENT: PERRLA, EOMI.low position of soft palate, Mallapati 3 . NECK: Supple. No JVD. LUNGS: Clear to percussion and to auscultation. Good air exchange. No wheezing or rhonchi. HEART: S1, S2 regular. ABDOMEN: Soft and nontender.[] EXTREMITIES: No clubbing or cyanosis. MENTAL HEALTH CLINICIAN: Awake, alert, and oriented x3. No focal deficit. Impressions: 1. Obstructive sleep apnea-hypopnea syndrome. Patient demonstrated great compliance with treatment, benefiting from treatment. 2. Possible REM sleep behavior disorder, on control with clonazepam. 3. Coronary artery disease, status post heart attack. 4. Mild obesity, BMI 31.7. 5. Hypertension. 6. Status post left nephrectomy for cancer. 7. Status post lumbar decompression surgery. Plan: 1. Continue using PAP equipment every night for the whole night. 2. To change air filter at least 1-2 times per month. 3. PAP unit should stay lower then position of the head. 4. Advised patient to remove all remaining water from humidifier canister daily and make it dry after each usage. Refill canister with fresh distilled water before each usage. 5. Sleep hygiene with regular time in bed for at least 8 hours. 6. Precautions related to driving. No driving if feel any sleepiness. 7. I will maintain prescription for PAP supplies including mask, tube, filters. 8. Follow up visit in 6 months or earlier if patient has any problems. 9. Watching weight. 10. Prescription for clonazepam 0.5 mg tablets 45 tablets per months to take 1.5 tablet at bedtime. Thank you very much for allowing me to participate in the management of your patient. Cayetano Rush MD, PhD, FAASM. Diplomat of [place] [employer], Sleep Medicine Board by [place] [employer] Train Engineer of [facility] [place]
== END ==
LOC: 3 N SLEEP 14:17
PROVIDERS: ATTEND Internal Medicine
DX: G47.33 Obstructive sleep apnea (adult) (pediatric) (principal); E66.9 Obesity, unspecified; I10 Essential (primary) hypertension; I25.10 Atherosclerotic heart disease of native coronary artery without angina pectoris; I25.2 Old myocardial infarction; Z68.31 Body mass index [BMI] 31.0-31.9, adult; Z79.899 Other long term (current) drug therapy; Z90.5 Acquired absence of kidney; Z98.890 Other specified postprocedural states; Z99.89 Dependence on other enabling machines and devices; Z79.01 Long term (current) use of anticoagulants; Z88.2 Allergy status to sulfonamides; Z88.8 Allergy status to other drugs, medicaments and biological substances; Z79.82 Long term (current) use of aspirin; Z87.891 Personal history of nicotine dependence
CPT/HCPCS: 99212

== ENCOUNTER 2023-09-28 14:56 | Observation (INO) | payer MEDICARE ==
--- NOTE | 2023-09-28 15:36 | ED ---
General Adult HPI - General Chief complaint: Chest Pain Stated complaint: chest pain,sob Time Seen by Provider: 09/28/23 15:05 Source: patient, RN notes reviewed, old records reviewed Mode of arrival: ambulatory Limitations: no limitations - History of Present Illness Initial comments: 68-year-old female presenting with squeezing central chest pain which has been present for the past 1 week. Patient reports that the pain is constant, unchanged by exertion. No associated vomiting or diaphoresis. At times the patient does radiate into her shoulders. She was seen both by her primary care and cardiology. She states that she is scheduled for stress test this coming Wednesday which is 3 days from now. Patient was concerned given the persistent nature of her pain. - Related Data Home Medications Medication Instructions Recorded Confirmed ALPRAZolam [Xanax] 0.5 mg PO TID 07/08/17 09/28/23 Citalopram Hydrobromide [CeleXA] 40 mg PO DAILY 07/08/17 09/28/23 Ergocalciferol (Vitamin D2) 50,000 unit PO INGRAM 05/25/18 09/28/23 [Drisdol (50,000 Iu)] Aspirin [Adult Low Dose Aspirin EC] 81 mg PO DAILY 09/23/20 09/28/23 Atorvastatin [Lipitor] 40 mg PO DAILY 09/23/20 09/28/23 Levothyroxine Sodium 137 mcg PO MOTUWETHFRSA 09/23/20 09/28/23 calcitrioL 0.25 mcg PO DIRECTED 09/23/20 09/28/23 Apixaban [Eliquis] 5 mg PO BID 09/01/22 09/28/23 Betamethasone Valerate [Luxiq 0.1%] 1 applic TOPICAL BID 09/28/23 09/28/23 Fesoterodine Fumarate 8 mg PO DAILY 09/28/23 09/28/23 [Fesoterodine Fumarate ER] Isosorbide Mononitrate ER [Imdur] 30 mg PO DAILY 09/28/23 09/28/23 Losartan [Cozaar] 50 mg PO DAILY 09/28/23 09/28/23 Metoprolol Succinate (ER) [Toprol 25 mg PO DAILY 09/28/23 09/28/23 Xl] Nitroglycerin Sl Tabs [Nitrostat] 0.4 mg SUBLINGUAL Q5M PRN 09/28/23 09/28/23 Allergies Allergy/AdvReac Type Severity Reaction Status Date / Time Sulfa (Sulfonamide Allergy Rash/Hives Verified 09/28/23 17:12 Antibiotics) NSAIDS (Non-Steroidal AdvReac NO NSAIDS Verified 09/28/23 17:12 Anti-Inflamma DUE TO ONLY 1 KIDNEY Review of Systems ROS Statement: Those systems with pertinent positive or pertinent negative responses have been documented in the HPI. ROS Other: All systems not noted in ROS Statement are negative. Past Medical History Past Medical History: Cancer, Chest Pain / Angina, GERD/Reflux, Hypertension, Myocardial Infarction ([place]), Pneumonia, Thyroid Disorder Additional Past Medical History / Comment(s): "2012 electrical heart attack", PUD, hypothyroid, low back pain, past migraines, lt foot fx with surgery, rib fx, diverticulosis dx/benign polyp.stress test 02-17-17, lt kidney ca(sx) one kidney Last Myocardial Infarction Date:: 2012 History of Any Multi-Drug Resistant Organisms: None Reported Past Surgical History: Back Surgery, Heart Catheterization, Orthopedic Surgery, Tonsillectomy, Tubal Ligation Additional Past Surgical History / Comment(s): 2012 cardiac cath-normal x2, 01/11/17 colonoscopy/benign polypectomy, ORIF LT FT, back x2, "lt NEPHRECTOMY d/t cancer". 09/30-heart cath-clear. dehiscence of incision with kidney surgery trigger finger repair rt hand Past Anesthesia/Blood Transfusion Reactions: No Reported Reaction Additional Past Anesthesia/Blood Transfusion Reaction / Comment(s): no hx blood transfusion severe post op nausea elevation in blood pressure aspirated lost voice x3 mos after a surgery at [facility] does not want propofol Past Psychological History: Anxiety, Depression Smoking Status: Former smoker Past Alcohol Use History: None Reported Past Drug Use History: Marijuana - Past Family History Mother Family Medical History: No Reported History Additional Family Medical History / Comment(s): Mother was healthy and lived to be 92 yrs. old. Father History Unknown: Yes Family Medical History: No Reported History General Exam Limitations: no limitations General appearance: alert, in no apparent distress Head exam: Present: atraumatic, normocephalic Eye exam: Present: normal appearance, PERRL ENT exam: Present: normal exam Neck exam: Present: normal inspection. Absent: tenderness Respiratory exam: Present: normal lung sounds bilaterally. Absent: respiratory distress, wheezes Cardiovascular Exam: Present: regular rate, normal rhythm GI/Abdominal exam: Present: soft. Absent: distended, tenderness, guarding Extremities exam: Present: normal inspection, normal capillary refill. Absent: calf tenderness Neurological exam: Present: alert, oriented X3, CN II-XII intact. Absent: motor sensory deficit Psychiatric exam: Present: normal affect, normal mood Course Vital Signs 09/28/23 09/28/23 09/28/23 15:00 15:10 17:34 Temperature 98.1 F Pulse Rate 84 65 Pulse Rate [ 84 Search Marketing Specialist ] Respiratory 18 18 Rate Blood Pressure 102/70 132/100 O2 Sat by Pulse 98 99 Oximetry Medical Decision Making - Medical Decision Making Was pt. sent in by a medical professional or institution (, PA, BATTERY SERVICE TECHNICIAN, urgent care, hospital, or shelter...) When possible be specific @ -No Did you speak to anyone other than the patient for history (EMS, parent, family, police, friend...)? What history was obtained from this source @ -No Did you review nursing and triage notes (agree or disagree)? Why? @ -I reviewed and agree with nursing and triage notes Were old charts reviewed (outside hosp., previous admission, EMS record, old EKG, old radiological studies, urgent care reports/EKG's, shelter records)? Report findings @ -No old charts were reviewed Differential Chest Pain: Stable Angina, Unstable Angina, STEMI, NSTEMI Aortic Dissection, Pneumothorax, Musculoskeletal, Esophageal Spasm GERD, Cholecystitis, Pancreatitis, Zoster, this is not meant to be an all-inclusive list. EKG interpreted by me (3pts min.). @ -Sinus rhythm rate of 76, NE interval 172, QRS duration 94, QTc [address] s egment elevation. X-rays interpreted by me (1pt min.). @Chest x-ray negative for acute cardiopulmonary findings CT interpreted by me (1pt min.). @ -None done U/S interpreted by me (1pt. min.). @ -None done What testing was considered but not performed or refused? (CT, X-rays, U/S, labs)? Why? @ -None What meds were considered but not given or refused? Why? @ -None Did you discuss the management of the patient with other professionals (professionals i.e. , PA, BATTERY SERVICE TECHNICIAN, lab, RT, psych nurse, social work coordinator, dietetics teacher, teacher, operations officer trust [employer], [employer])? Give summary @ -Case discussed with Dr. Mcdonnell who will admit Was smoking cessation discussed for >3mins.? @ -No Was critical care preformed (if so, how long)? @ -No Were there social determinants of health that impacted care today? How? (Homelessness, low income, unemployed, alcoholism, drug addiction, transportation, low edu. Level, literacy, decrease access to med. care, [facility], rehab)? @ -No Was there de-escalation of care discussed even if they declined (Discuss DNR or withdrawal of care, Hospice)? DNR status @ -No What co-morbidities impacted this encounter? (DM, HTN, Smoking, COPD, CAD, Cancer, CVA, ARF, Chemo, Hep., AIDS, mental health diagnosis, sleep apnea, morbid obesity)? @ -None Was patient admitted / discharged? Hospital course, mention meds given and route, prescriptions, significant lab abnormalities, going to OR and other pertinent info. @68-year-old female with squeezing central chest pain over the past 1 week. Patient is scheduled for stress test later this week however her symptoms have been persistent and she is concerned. EKG sinus rhythm without ST segment changes. She has normal CBC, normal CMP, negative initial troponin. Patient given aspirin in the emergency department. She will be observed overnight for serial cardiac enzymes, telemetry, cardiology consultation. Undiagnosed new problem with uncertain prognosis? @ -No Drug Therapy requiring intensive monitoring for toxicity (Heparin, Nitro, Insulin, Cardizem)? @ -No Were any procedures done? @ -No Diagnosis/symptom? @ -Chest pain rule out Acute, or Chronic, or Acute on Chronic? @ -Acute Uncomplicated (without systemic symptoms) or Complicated (systemic symptoms)? @ -Default Side effects of treatment? @ -No Exacerbation, Progression, or Severe Exacerbation? @ -No Poses a threat to life or bodily function? How? (Chest pain, USA, MS, pneumonia, PE, COPD, DKA, ARF, appy, cholecystitis, CVA, Diverticulitis, Homicidal, S uicidal, threat to staff... and all critical care pts) @Yes, chest pain ACS , - Lab Data Result diagrams: 09/28/23 15:27 09/28/23 15:27 Lab Results 09/28/23 09/28/23 09/28/23 Range/Units 15:27 15:27 15:27 WBC 8.4 (3.8-10.6) k/uL RBC 4.81 (3.80-5.40) m/uL Hgb 14.4 (11.4-16.0) gm/dL Hct 43.9 (34.0-46.0) % MCV 91.2 (80.0-100.0) fL MCH 29.9 (25.0-35.0) pg MCHC 32.7 (31.0-37.0) g/dL RDW 13.3 (11.5-15.5) % Plt Count 241 (150-450) k/uL MPV 8.2 Neutrophils % 68 % Lymphocytes % 21 % Monocytes % 7 % Eosinophils % 2 % Basophils % 0 % Neutrophils # 5.7 (1.3-7.7) k/uL Lymphocytes # 1.8 (1.0-4.8) k/uL Monocytes # 0.6 (0-1.0) k/uL Eosinophils # 0.2 (0-0.7) k/uL Basophils # 0.0 (0-0.2) k/uL PT 11.3 (10.0-12.5) sec INR 1.0 (<1.2) APTT 26.2 (22.0-30.0) sec Sodium 138 (137-145) mmol/L Potassium 4.0 (3.5-5.1) mmol/L Chloride 109 H (98-107) mmol/L Carbon Dioxide 20 L (22-30) mmol/L Anion Gap 9 mmol/L BUN 24 H (7-17) mg/dL Creatinine 1.07 H (0.52-1.04) mg/dL Est GFR (CKD-EPI)AfAm 62 (>60 ml/min/1.73 sqM) Est GFR (CKD-EPI)NonAf 54 (>60 ml/min/1.73 sqM) Glucose 94 (74-99) mg/dL Calcium 9.8 (8.4-10.2) mg/dL Magnesium 1.7 (1.6-2.3) mg/dL Total Bilirubin 0.6 (0.2-1.3) mg/dL AST 23 (14-36) U/L ALT 18 (4-34) U/L Alkaline Phosphatase 90 (38-126) U/L Troponin I (0.000-0.034) ng/mL Total Protein 8.2 (6.3-8.2) g/dL Albumin 4.4 (3.5-5.0) g/dL 09/28/23 Range/Units 15:27 WBC (3.8-10.6) k/uL RBC (3.80-5.40) m/uL Hgb (11.4-16.0) gm/dL Hct (34.0-46.0) % MCV (80.0-100.0) fL MCH (25.0-35.0) pg MCHC (31.0-37.0) g/dL RDW (11.5-15.5) % Plt Count (150-450) k/uL MPV Neutrophils % % Lymphocytes % % Monocytes % % Eosinophils % % Basophils % % Neutrophils # (1.3-7.7) k/uL Lymphocytes # (1.0-4.8) k/uL Monocytes # (0-1.0) k/uL Eosinophils # (0-0.7) k/uL Basophils # (0-0.2) k/uL PT (10.0-12.5) sec INR (<1.2) APTT (22.0-30.0) sec Sodium (137-145) mmol/L Potassium (3.5-5.1) mmol/L Chloride (98-107) mmol/L Carbon Dioxide (22-30) mmol/L Anion Gap mmol/L BUN (7-17) mg/dL Creatinine (0.52-1.04) mg/dL Est GFR (CKD-EPI)AfAm (>60 ml/min/1.73 sqM) Est GFR (CKD-EPI)NonAf (>60 ml/min/1.73 sqM) Glucose (74-99) mg/dL Calcium (8.4-10.2) mg/dL Magnesium (1.6-2.3) mg/dL Total Bilirubin (0.2-1.3) mg/dL AST (14-36) U/L ALT (4-34) U/L Alkaline Phosphatase (38-126) U/L Troponin I <0.012 (0.000-0.034) ng/mL Total Protein (6.3-8.2) g/dL Albumin (3.5-5.0) g/dL Disposition Clinical Impression: Chest pain Disposition: ADMITTED IP TO THIS HOSP Condition: Stable Is patient prescribed a controlled substance at d/c from ED?: No Referrals: Edvin Mcdonnell MD [Primary Care Provider] - 1-2 days Time of Disposition: 18:10
--- NOTE | 2023-09-28 15:47 | XR ---
EXAMINATION TYPE: XR chest 2V DATE OF EXAM: 09/28/2023 3:43 PM CLINICAL INDICATION:Female, 68 years old with history of Chest Pain; [facility] COMPARISON: Chest radiographs from 09/30/2021 TECHNIQUE: XR chest 2V Frontal view of the chest. FINDINGS: Lungs/Pleura: There is no evidence of pleural effusion, focal consolidation, or pneumothorax. Pulmonary vascularity: Unremarkable. Heart/mediastinum: Cardiomediastinal silhouette is unremarkable. Musculoskeletal: No acute osseous pathology. IMPRESSION: No acute cardiopulmonary disease/process.
[2023-09-28 15:51] LABS: Partial Thromboplastin Time 26.2 sec (22.0-30.0); Prothrombin Time 11.3 sec (10.0-12.5)
[2023-09-28 15:57] LABS: Basophils % (A) 0 %; Eosinophils # (A) 0.2 k/uL (0-0.7); Eosinophils % (A) 2 %; HCT 43.9 % (34.0-46.0); HGB 14.4 gm/dL (11.4-16.0); Lymphocytes # (A) 1.8 k/uL (1.0-4.8); Lymphocytes % (A) 21 %; MCH 29.9 pg (25.0-35.0); MCHC 32.7 g/dL (31.0-37.0); MCV 91.2 fL (80.0-100.0); Mean Platelet Volume 8.2; Monocytes # (A) 0.6 k/uL (0-1.0); Monocytes % (A) 7 %; Neutrophils # (A) 5.7 k/uL (1.3-7.7); Neutrophils % (A) 68 %; Platelet Count 241 k/uL (150-450); RBC 4.81 m/uL (3.80-5.40); RDW 13.3 % (11.5-15.5); WBC 8.4 k/uL (3.8-10.6)
[2023-09-28 17:30] LABS: ALT 18 U/L (4-34); AST 23 U/L (14-36); African American GFR (CKD) 62 (>60 ml/min/1.73 sqM); Albumin 4.4 g/dL (3.5-5.0); Alkaline Phosphatase 90 U/L (38-126); Anion Gap 9 mmol/L; Blood Urea Nitrogen 24 mg/dL (7-17); Calcium 9.8 mg/dL (8.4-10.2); Carbon Dioxide 20 mmol/L (22-30); Chloride 109 mmol/L (98-107); Glucose 94 mg/dL (74-99); Magnesium 1.7 mg/dL (1.6-2.3); Non-African American GFR(CKD) 54 (>60 ml/min/1.73 sqM); Sodium 138 mmol/L (137-145); Total Bilirubin 0.6 mg/dL (0.2-1.3); Total Protein 8.2 g/dL (6.3-8.2)
[2023-09-28] MEDS: HYDROcodone/APAP 5-325MG 1 EACH TAB PO STA (17:50)
[2023-09-28] MEDS ORDERED: NALOXONE 0.4 MG/ML 1 ML VIAL IV PRN (18:06)
[2023-09-28] MEDS: MORPHINE SULFATE 2 MG/ML SYRINGE IVP STA (18:37)
[2023-09-28] MEDS: ASPIRIN 325 MG TAB PO STA (18:38)
[2023-09-28] MEDS ORDERED: NITROGLYCERIN SL TABS 0.4 MG TAB SUBLINGUAL PRN (21:35)
[2023-09-28] MEDS: HYDROcodone/APAP 5-325MG 1 EACH TAB PO PRN (21:51)
[2023-09-28] MEDS: ALPRAZolam 0.5 MG TAB PO SCH (21:51)
[2023-09-28] MEDS: LEVOTHYROXINE 137 MCG TAB PO SCH (22:18)
[2023-09-29] MEDS: LEVOTHYROXINE 137 MCG TAB PO SCH (05:43)
[2023-09-29] MEDS ORDERED: REGADENOSON 0.4 MG/5 ML SYRINGE IV PRN (08:21)
[2023-09-29] MEDS ORDERED: AMINOPHYLLINE 500 MG/20 ML VIAL IV PRN (08:21)
[2023-09-29] MEDS ORDERED: CAFFEINE CITRATE 60 MG/3 ML VIAL IV PRN (08:21)
--- NOTE | 2023-09-29 08:40 | P.HPIM ---
History of Present Illness H&P Date: 09/29/23 Chief Complaint: Chest pain. The patient is a 68-year-old white female with known history of coronary disease previous myocardial infarction with history of kidney cancer with nephrectomy who came in with worsening chest pain. She was scheduled to have cardiac testing done this Wednesday but because of her symptomatology she was admitted for appropriate chest pain. Cardiac enzyme elevation is not noted. She is resting comfortably. No voiding difficulties. Minimal discomfort is noted. No significant nausea vomiting or diaphoresis. 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, Thyroid Disorder Additional Past Medical History / Comment(s): "2012 electrical heart attack", PUD, hypothyroid, low back pain, past migraines, lt foot fx with surgery, rib fx, diverticulosis dx/benign polyp.stress test 02-17-17, lt kidney ca(sx) one kidney Last Myocardial Infarction Date:: 2012 History of Any Multi-Drug Resistant Organisms: None Reported Past Surgical History: Back Surgery, Heart Catheterization, Orthopedic Surgery, Tonsillectomy, Tubal Ligation Additional Past Surgical History / Comment(s): 2012 cardiac cath-normal x2, 01/11/17 colonoscopy/benign polypectomy, ORIF LT FT, back x2, "lt NEPHRECTOMY d/t cancer". 09/30-heart cath-clear. dehiscence of incision with kidney surgery trigger finger repair rt hand Past Anesthesia/Blood Transfusion Reactions: No Reported Reaction Additional Past Anesthesia/Blood Transfusion Reaction / Comment(s): no hx blood transfusion severe post op nausea elevation in blood pressure aspirated lost voice x3 mos after a surgery at [facility] does not want propofol Past Psychological History: Anxiety, Depression Additional Psychological History / Comment(s): and lives with the . Does not work outside of the home. No experience. No extensive travel. Has pet dogs at home. No current tobacco smoker. No significant Alcohol or recreational drug use. Smoking Status: Former smoker Past Alcohol Use History: None Reported Additional Past Alcohol Use History / Comment(s): Pt started smoking in 1971 smoked <1 ppd and quit may 2017 Past Drug Use History: Marijuana Additional Drug Use History / Comment(s): refrain x 24 hours prior - Past Family History Mother Family Medical History: Hyperlipidemia Additional Family Medical History / Comment(s): Mother was healthy and lived to be 92 yrs. old. alcohol abuse Father History Unknown: Yes Family Medical History: Chest Pain / Angina Medications and Allergies Home Medications Medication Instructions Recorded Confirmed Type ALPRAZolam [Xanax] 0.5 mg PO TID 07/08/17 09/28/23 History Citalopram Hydrobromide [CeleXA] 40 mg PO DAILY 07/08/17 09/28/23 History Ergocalciferol (Vitamin D2) 50,000 unit PO INGRAM 05/25/18 09/28/23 History [Drisdol (50,000 Iu)] Aspirin [Adult Low Dose Aspirin EC] 81 mg PO DAILY 09/23/20 09/28/23 History Atorvastatin [Lipitor] 40 mg PO DAILY 09/23/20 09/28/23 History Levothyroxine Sodium 137 mcg PO MOTUWETHFRSA 09/23/20 09/28/23 History calcitrioL 0.25 mcg PO DIRECTED 09/23/20 09/28/23 History Apixaban [Eliquis] 5 mg PO BID 09/01/22 09/28/23 History Betamethasone Valerate [Luxiq 0.1%] 1 applic TOPICAL BID 09/28/23 09/28/23 History Fesoterodine Fumarate 8 mg PO DAILY 09/28/23 09/28/23 History [Fesoterodine Fumarate ER] Isosorbide Mononitrate ER [Imdur] 30 mg PO DAILY 09/28/23 09/28/23 History Losartan [Cozaar] 50 mg PO DAILY 09/28/23 09/28/23 History Metoprolol Succinate (ER) [Toprol 25 mg PO DAILY 09/28/23 09/28/23 History Xl] Nitroglycerin Sl Tabs [Nitrostat] 0.4 mg SUBLINGUAL Q5M PRN 09/28/23 09/28/23 History Allergies Allergy/AdvReac Type Severity Reaction Status Date / Time Sulfa (Sulfonamide Allergy Rash/Hives Verified 09/28/23 17:12 Antibiotics) NSAIDS (Non-Steroidal AdvReac NO NSAIDS Verified 09/28/23 17:12 Anti-Inflamma DUE TO ONLY 1 KIDNEY Physical Exam Vitals: Vital Signs Temp Pulse Pulse Resp BP BP BP 09/29/23 07:35 98.2 F 60 18 110/73 09/29/23 02:15 97.6 F 60 16 111/74 09/28/23 21:01 98.5 F 74 16 141/84 09/28/23 20:47 18 09/28/23 20:03 77 144/109 09/28/23 18:39 7 L 18 129/86 09/28/23 17:34 65 18 132/100 09/28/23 15:10 84 09/28/23 15:00 98.1 F 84 18 102/70 Pulse Ox 09/29/23 07:35 97 09/29/23 02:15 98 09/28/23 21:01 96 09/28/23 20:47 09/28/23 20:03 09/28/23 18:39 98 09/28/23 17:34 99 09/28/23 15:10 09/28/23 15:00 98 Intake and Output 09/28/23 09/29/23 09/29/23 22:59 06:59 14:59 Other: # Voids 1 1 Weight 81.193 kg - Constitutional General appearance: no acute distress - EENT Eyes: EOMI - Neck Neck: no lymphadenopathy - Respiratory Respiratory: bilateral: diminished - Cardiovascular Rhythm: regular Heart sounds: normal: S1, S2 Abnormal Heart Sounds: no S3 Gallop - Gastrointestinal General gastrointestinal: soft, no tenderness - Integumentary Integumentary: no cellulitis - Neurologic Neurologic: CNII-XII intact Results CBC & Chem 7: 09/28/23 15:27 09/28/23 15:27 Labs: Abnormal Lab Results - Last 24 Hours (Table) 09/28/23 Range/Units 15:27 Chloride 109 H (98-107) mmol/L Carbon Dioxide 20 L (22-30) mmol/L BUN 24 H (7-17) mg/dL Creatinine 1.07 H (0.52-1.04) mg/dL Thrombosis Risk Factor Assmnt - Choose All That Apply Any of the Below Risk Factors Present?: Yes Each Factor Represents 1 point: Obesity (BMI >25) Other Risk Factors: Yes Each Risk Factor Represents 2 Points: Age 61-74 years Other congenital or acquired thrombophilia - If yes, enter type in comment: No Thrombosis Risk Factor Assessment Total Risk Factor Score: 3 Thrombosis Risk Factor Assessment Level: Moderate Risk Assessment and Plan (1) Chest pain Current Visit: Yes Status: Acute Code(s): R07.9 - CHEST PAIN, UNSPECIFIED SNOMED Code(s): 61360137 (2) GERD (gastroesophageal reflux disease) Current Visit: No Status: Acute Code(s): K21.9 - GASTRO-ESOPHAGEAL REFLUX DISEASE WITHOUT ESOPHAGITIS SNOMED Code(s): 685574333 (3) History of nephrectomy Current Visit: No Status: Acute Code(s): Z90.5 - ACQUIRED ABSENCE OF KIDNEY SNOMED Code(s): 40096278668661 (4) History of renal cell carcinoma Current Visit: No Status: Acute Code(s): Z85.528 - PERSONAL HISTORY OF OTHER MALIGNANT NEOPLASM OF KIDNEY SNOMED Code(s): 087691214 Plan: Rule out myocardial infarction. Stress testing via cardiology input. Reconcile medications. The patient is otherwise full code. History of renal cell carcinoma. See orders otherwise.
[2023-09-29] MEDS: APIXABAN 5 MG TAB PO SCH (09:10)
[2023-09-29] MEDS: LOSARTAN 50 MG TAB PO SCH (09:10)
[2023-09-29] MEDS: ASPIRIN 81 MG PO SCH (09:11)
[2023-09-29] MEDS: ATORVASTATIN 40 MG TAB PO SCH (09:11)
[2023-09-29] MEDS: CITALOPRAM HYDROBROMIDE 20 MG TAB PO SCH (09:11)
[2023-09-29] MEDS: ISOSORBIDE MONONITRATE ER 30 MG TAB.ER.24H PO SCH (09:11)
[2023-09-29] MEDS: TROSPIUM CHLORIDE 20 MG TABLET PO SCH (09:12)
[2023-09-29] MEDS: TRIAMCINOLONE 0.1% CREAM 80 GM TUBE TOPICAL SCH (09:12)
--- NOTE | 2023-09-29 10:02 | P.CRDCN ---
History of Present Illness Consult date: 09/29/23 Consult reason: chest pain History of present illness: This is a 68-year-old female patient of Dr. Katerina Bright with past medical history of paroxysmal atrial fibrillation on Eliquis for anticoagulation, hypertension, dyslipidemia. We have been asked to evaluate the patient for chest pain. Patient was recently seen in the office on 09/20 at which time she was advised to undergo Lexiscan stress test which is scheduled in the office on Wednesday. Angelika carr states that she has a squeezing sensation of her heart along with sharp pains. It was more severe earlier and is now mild but she still has the pain. Blood pressure 110/73, heart rate 60, pulse ox 97% on room air. Discussed next options with the patient and she is agreeable to undergo Lexiscan stress test today. EKG: Sinus rhythm with no acute ST-T wave changes. Chest x-ray: No acute process Laboratory studies: CBC is unremarkable. Sodium 138, potassium 4, BUN 24 creatinine 1.07. Troponin negative x 3. Home cardiac medications: Eliquis 5 mg twice daily, aspirin 81 mg daily, Lipitor 40 mg daily, Imdur 30 mg daily, losartan 50 mg daily, Toprol-XL 25 mg daily, Nitrostat as needed, also on levothyroxine 137 mcg every day but Wednesday. Cardiac catheterization performed in September 2018 revealed a nonsignificant lesion within the circumflex coronary artery that was managed medically. Lexiscan stress test performed 07/21/2018 in the office revealed a negative stress test by EKG criteria. Lexiscan induced bradycardia. Technically suboptimal study with no large areas of ischemia. Echocardiogram performed 09/30/2021 revealed normal LV size and systolic function with mild concentric left nuclear hypertrophy. Minimal mitral insufficiency. No pericardial effusion. Review Of Systems: At the time of my exam: CONSTITUTIONAL: Denies fever or chills. HEENT: Denies blurred vision, vision changes, or eye pain. Denies hemoptysis CARDIOVASCULAR: Reports chest pain. Denies orthopnea. Denies PND. Denies palpitations RESPIRATORY: Denies shortness of breath. GASTROINTESTINAL: Denies abdominal pain. Denies nausea or vomiting. HEMATOLOGIC: Denies bleeding disorders. GENITOURINARY: Denies any blood in urine. SKIN: Denies puritis. Denies rash. Physical examination: Gen: This is a 68-year-old female in no acute distress. VS: reviewed HEENT: Head is atraumatic, normocephalic. Pupils equal, round. Sclerae is anicteric. NECK: Supple. No JVD. LUNGS: Clear to auscultation. No wheezes or rhonchi. No intercostal retractions. HEART: Regular rate and rhythm. No murmur. ABDOMEN: Soft No tenderness. EXTREMITIES: No pedal edema. No calf tenderness. NEUROLOGICAL: Patient is awake, alert and oriented x3. Assessment: Chest pain, acute coronary syndrome ruled out with negative troponins Paroxysmal atrial fibrillation on Eliquis Hypertension Dyslipidemia Plan: Resume patient's home cardiac medications Schedule patient for Lexiscan Cardiolite stress test today Obtain 2-D echocardiogram and Doppler study to assess cardiac structure and function If Lexiscan stress test is positive, Eliquis will be placed on hold and patient will be scheduled for cardiac catheterization tomorrow. If Lexiscan stress test is negative, patient will be cleared for discharge and may follow-up with Dr. Katerina Bright in the office in 2 to 3 weeks. Thank you kindly for this consultation. Nurse practitioner note has been reviewed, I agree with documented findings and plan of care. Patient was seen and examined. Past Medical History Past Medical History: Cancer, Chest Pain / Angina, Heart Failure, GERD/Reflux, Hyperlipidemia, Hypertension, Myocardial Infarction (MA), Pneumonia, Sleep Apnea/CPAP/BIPAP, Thyroid Disorder Additional Past Medical History / Comment(s): "2012 electrical heart attack", PUD, hypothyroid, low back pain, past migraines, lt foot fx with surgery, rib fx, diverticulosis dx/benign polyp.stress test 02-17-17, lt kidney ca(sx) one kidney Last Myocardial Infarction Date:: 2012 History of Any Multi-Drug Resistant Organisms: None Reported Past Surgical History: Back Surgery, Heart Catheterization, Orthopedic Surgery, Tonsillectomy, Tubal Ligation Additional Past Surgical History / Comment(s): 2012 cardiac cath-normal x2, 01/11/17 colonoscopy/benign polypectomy, ORIF LT FT, back x2, "lt NEPHRECTOMY d/t cancer". 09/30-heart cath-clear. dehiscence of incision with kidney surgery trigger finger repair rt hand Past Anesthesia/Blood Transfusion Reactions: No Reported Reaction Additional Past Anesthesia/Blood Transfusion Reaction / Comment(s): no hx blood transfusion severe post op nausea elevation in blood pressure aspirated lost voice [facility] Past Psychological History: Anxiety, Depression Additional Psychological History / Comment(s): and lives with the . Does not work outside of the home. No experience. No extensive travel. Has pet dogs at home. No current tobacco smoker. No significant Alcohol or recreational drug use. Smoking Status: Former smoker Past Alcohol Use History: None Reported Additional Past Alcohol Use History / Comment(s): Pt started smoking in 1971 smoked <1 ppd and quit may 2017 Past Drug Use History: Marijuana Additional Drug Use History / Comment(s): refrain x 24 hours prior - Past Family History Mother Family Medical History: Hyperlipidemia Additional Family Medical History / Comment(s): Mother was healthy and lived to be 92 yrs. old. alcohol abuse Father History Unknown: Yes Family Medical History: Chest Pain / Angina Medications and Allergies Home Medications Medication Instructions Recorded Confirmed Type ALPRAZolam [Xanax] 0.5 mg PO TID 07/08/17 09/28/23 History Citalopram Hydrobromide [CeleXA] 40 mg PO DAILY 07/08/17 09/28/23 History Ergocalciferol (Vitamin D2) 50,000 unit PO INGRAM 05/25/18 09/28/23 History [Drisdol (50,000 Iu)] Aspirin [Adult Low Dose Aspirin EC] 81 mg PO DAILY 09/23/20 09/28/23 History Atorvastatin [Lipitor] 40 mg PO DAILY 09/23/20 09/28/23 History Levothyroxine Sodium 137 mcg PO MOTUWETHFRSA 09/23/20 09/28/23 History calcitrioL 0.25 mcg PO DIRECTED 09/23/20 09/28/23 History Apixaban [Eliquis] 5 mg PO BID 09/01/22 09/28/23 History Betamethasone Valerate [Luxiq 0.1%] 1 applic TOPICAL BID 09/28/23 09/28/23 History Fesoterodine Fumarate 8 mg PO DAILY 09/28/23 09/28/23 History [Fesoterodine Fumarate ER] Isosorbide Mononitrate ER [Imdur] 30 mg PO DAILY 09/28/23 09/28/23 History Losartan [Cozaar] 50 mg PO DAILY 09/28/23 09/28/23 History Metoprolol Succinate (ER) [Toprol 25 mg PO DAILY 09/28/23 09/28/23 History Xl] Nitroglycerin Sl Tabs [Nitrostat] 0.4 mg SUBLINGUAL Q5M PRN 09/28/23 09/28/23 History Allergies Allergy/AdvReac Type Severity Reaction Status Date / Time Sulfa (Sulfonamide Allergy Rash/Hives Verified 09/28/23 17:12 Antibiotics) NSAIDS (Non-Steroidal AdvReac NO NSAIDS Verified 09/28/23 17:12 Anti-Inflamma DUE TO ONLY 1 KIDNEY Physical Exam Vitals: Vital Signs Temp Pulse Pulse Resp BP BP BP 09/29/23 07:35 98.2 F 60 18 110/73 09/29/23 02:15 97.6 F 60 16 111/74 09/28/23 21:01 98.5 F 74 16 141/84 09/28/23 20:47 18 09/28/23 20:03 77 144/109 09/28/23 18:39 7 L 18 129/86 09/28/23 17:34 65 18 132/100 09/28/23 15:10 84 09/28/23 15:00 98.1 F 84 18 102/70 Pulse Ox 09/29/23 07:35 97 09/29/23 02:15 98 09/28/23 21:01 96 09/28/23 20:47 09/28/23 20:03 09/28/23 18:39 98 09/28/23 17:34 99 09/28/23 15:10 09/28/23 15:00 98 Intake and Output 09/28/23 09/29/23 09/29/23 22:59 06:59 14:59 Other: # Voids 1 1 Weight 81.193 kg Results 09/28/23 15:27 09/28/23 15:27 Cardiac Enzymes 09/28/23 09/28/23 09/28/23 Range/Units 15:27 15:27 18:15 AST 23 (14-36) U/L Troponin I <0.012 <0.012 (0.000-0.034) ng/mL 09/28/23 Range/Units 23:49 AST (14-36) U/L Troponin I <0.012 (0.000-0.034) ng/mL Coagulation 09/28/23 Range/Units 15:27 PT 11.3 (10.0-12.5) sec APTT 26.2 (22.0-30.0) sec CBC 09/28/23 Range/Units 15:27 WBC 8.4 (3.8-10.6) k/uL RBC 4.81 (3.80-5.40) m/uL Hgb 14.4 (11.4-16.0) gm/dL Hct 43.9 (34.0-46.0) % Plt Count 241 (150-450) k/uL Comprehensive Metabolic Panel 09/28/23 Range/Units 15:27 Sodium 138 (137-145) mmol/L Potassium 4.0 (3.5-5.1) mmol/L Chloride 109 H (98-107) mmol/L Carbon Dioxide 20 L (22-30) mmol/L BUN 24 H (7-17) mg/dL Creatinine 1.07 H (0.52-1.04) mg/dL Glucose 94 (74-99) mg/dL Calcium 9.8 (8.4-10.2) mg/dL AST 23 (14-36) U/L ALT 18 (4-34) U/L Alkaline Phosphatase 90 (38-126) U/L Total Protein 8.2 (6.3-8.2) g/dL Albumin 4.4 (3.5-5.0) g/dL Current Medications Generic Name Dose Route Start Last Admin Trade Name Freq PRN Reason Stop Dose Admin Hydrocodone Bitart/Acetaminophen 1 each 09/28/23 18:06 09/29/23 05:42 Hydrocodone/Apap 5-325mg 1 Each Tab PO 1 each Q4HR PRN Administration Moderate Pain (Scale 4 to 6) Alprazolam 0.5 mg 09/28/23 22:00 09/28/23 21:51 Alprazolam 0.5 Mg Tab PO 0.5 mg TID [facility] Administration Apixaban 5 mg 09/29/23 09:00 Apixaban 5 Mg Tab PO BID [facility] Protocol Aspirin 81 mg 09/29/23 09:00 Aspirin 81 Mg PO DAILY [facility] Atorvastatin Calcium 40 mg 09/29/23 09:00 Atorvastatin 40 Mg Tab PO DAILY [facility] Calcitriol 0.25 mcg 09/28/23 21:45 09/28/23 22:18 Calcitriol 0.25 Mcg Cap PO Not Given DIRECTED [facility] Citalopram Hydrobromide 40 mg 09/29/23 09:00 Citalopram Hydrobromide 20 Mg Tab PO DAILY [facility] Ergocalciferol 1,250 mcg 10/03/23 21:35 Ergocalciferol 1,250 Mcg (50,000 Iu) Capsule PO INGRAM [facility] Isosorbide Mononitrate 30 mg 09/29/23 09:00 Isosorbide Mononitrate Er 30 Mg Tab.Er.24h PO DAILY [facility] Levothyroxine Sodium 137 mcg 09/29/23 05:00 09/29/23 05:43 Levothyroxine 137 Mcg Tab PO 137 mcg MOTUWETHFRSA [facility] Administration Losartan Potassium 50 mg 09/29/23 09:00 Losartan 50 Mg Tab PO DAILY [facility] Metoprolol Succinate 25 mg 09/29/23 09:00 Metoprolol Succinate (Er) 25 Mg Tab.Er.24h PO DAILY [facility] Naloxone HCl 0.2 mg 09/28/23 18:06 Naloxone 0.4 Mg/Ml 1 Ml Vial IV Q2M PRN Opioid Reversal Nitroglycerin 0.4 mg 09/28/23 21:35 Nitroglycerin Sl Tabs 0.4 Mg Tab SUBLINGUAL Q5M PRN Chest Pain Triamcinolone Acetonide 1 applic 09/29/23 09:00 Triamcinolone 0.1% Cream 80 Gm Tube TOPICAL BID [facility] Trospium 20 mg 09/29/23 09:00 Trospium Chloride 20 Mg Tablet PO BID [facility] Intake and Output 09/28/23 09/29/23 09/29/23 22:59 06:59 14:59 Other: # Voids 1 1 Weight 81.193 kg 09/28/23 15:27 09/28/23 15:27
--- NOTE | 2023-09-29 11:28 | CA ---
Transthoracic Echo Report Name: Annamaria Humphrey Age: 68 Gender: F : 1955 Exam Date: 09/29/2023 10:39 Exam Location: [facility] Ht (in): 66 Wt (lb): 179 Ordering Physician: Vicky Bar Attending/Referring Phys: [id number], Yosvany [employer] Margaret Tiwari RDCS Procedure CPT: Indications: LVF Cardiac Hx: Technical Quality: Very technically difficult study Contrast 1: Definity Total Dose (mL): 2 Contrast 2: Total Dose (mL): MEASUREMENTS (Male / Female) Normal Values 2D ECHO LV Diastolic Diameter PLAX 3.5 cm 4.2 - 5.9 / 3.9 - 5.3 cm LV Systolic Diameter PLAX 2.7 cm IVS Diastolic Thickness 1.4 cm 0.6 - 1.0 / 0.6 - 0.9 cm LVPW Diastolic Thickness 1.1 cm 0.6 - 1.0 / 0.6 - 0.9 cm LV Relative Wall Thickness 0.7 LA Volume 30.2 cm??? 18 - 58 / 22 - 52 cm??? LA Volume Index 15.4 cm???/m??? 16 - 28 cm???/m??? M-MODE Aortic Root Diameter MM 2.6 cm LA Systolic Diameter MM 2.8 cm LA Ao Ratio MM 1.1 AV Cusp Separation MM 1.6 cm DOPPLER AV Peak Velocity 110.3 cm/s AV Peak Gradient 4.9 mmHg AV Mean Velocity 71.9 cm/s AV Mean Gradient 2.3 mmHg AV Velocity Time Integral 20.8 cm LVOT Peak Velocity 92.8 cm/s LVOT Peak Gradient 3.4 mmHg LVOT Velocity Time Integral 18.0 cm MV Area PHT 2.8 cm??? Mitral E Point Velocity 56.1 cm/s Mitral A Point Velocity 82.5 cm/s Mitral E to A Ratio 0.7 MV Deceleration Time 275.4 ms MV E' Velocity 8.1 cm/s Mitral E to MV E' Ratio 7.0 FINDINGS Left Ventricle Moderately increased left ventricular wall thickness. Left ventricular cavity size normal. Normal left ventricular systolic function with no obvious regional wall motion abnormalities. Left ventricular ejection fraction is estimated at 55 %. Grade 1 diastolic dysfunction. Right Ventricle Right ventricle not well visualized. Right Atrium Right atrium not well visualized. Left Atrium Normal left atrial size. Mitral Valve Structurally normal mitral valve. No mitral stenosis, regurgitation or prolapse. Aortic Valve Aortic valve not well visualized. No aortic stenosis. No aortic regurgitation. Tricuspid Valve Tricuspid valve not well visualized. Pulmonic Valve Pulmonic valve not well visualized. Pericardium No pericardial effusion. Aorta Normal size aortic root and proximal ascending aorta. CONCLUSIONS Technically suboptimal study secondary to poor echo windows Left ventricular size and systolic function are normal Previewed by: Dr. Arnulfo Bright MD (Electronically Signed) Final Date: 29 September 2023 11:27
[2023-09-29] MEDS: METOPROLOL SUCCINATE (ER) 25 MG TAB.ER.24H PO SCH (12:43)
--- NOTE | 2023-09-29 14:19 | NM ---
EXAMINATION TYPE: NM stress lexiscan cardiolite DATE OF EXAM: 09/29/2023 COMPARISON: NONE CLINICAL INDICATION: Female, 68 years old with history of chest pain; TECHNIQUE: After the intravenous administration of 9 mCi Tc 99m Sestamibi - Cardiolite resting SPECT images acquired 86 minutes post injection. The patient received 0.4mg Lexiscan, 24.7 mCi Tc 99m Sestamibi - Stress images obtained [address] injection FINDINGS: Review of stress and rest SPECT images demonstrates no distinct aneurysm perfusion abnormality. Fixe d defect anterior wall is felt to reflect remote insult. Gated analysis shows normal wall motion with an estimated left ventricular ejection fraction of 75 %. IMPRESSION: No scintigraphic evidence for reversible ischemia.
[2023-09-29 14:49] VITALS: TEMP 98.7
[2023-09-29 17:57] VITALS: BP 104/68; PULSE 67; RESP 16
--- NOTE | 2023-09-29 18:01 | CA ---
Lexiscan Nuclear Stress Test Report Name: Annamaria Humphrey Exam Date: 09/29/2023 10:37 Exam Location: [place] [facility] Ht (in): 66 Wt (lb): 179 BSA: 1.91 Ordering Phys: Vicky Bar Referring Phys: ANDERS GOLDSMITH Technologist: RACHANA Age: 68 Gender: F : 1955 Procedure CPT: Indications: Reflex order-Stress test ICD-10 Codes: Patient History: Chest pain,RO, palpitations Medications: Meds past 24 hrs: Pretest Chest Pain: STRESS TEST Lexiscan Protocol Exercise Duration (min:sec): 01:[address] Depressions (mm): Angina Score: Restrepo Score: Resting HR (bpm): 73 Peak HR (bpm): 118 Resting BP (mmHg): 112 / 67 Peak BP (mmHg): 176 / 104 MPHR: 153 Target HR: 130 % MPHR: 77 METS: 1.0 Total Dose: Peak Dose: Atropine: Double Product: 52193 BP Response: Stress Termination: Infusion complete Stress Symptoms: Dyspnea and flushing Stress Summary: ECG ANALYSIS Resting ECG: Normal sinus rhythm with nonspecific ST-T wave changes Stress ECG: Patient was given intravenous Lexiscan as a protocol did not have chest pain or diagnostic ST segment depression CONCLUSIONS Negative stress test by EKG criteria Cardiolite portion of the stress test will be reported separately Dr. Arnulfo Bright MD (Electronically Signed) Final Date: 29 September 2023 18:00
[2023-10-03] MEDS ORDERED: ERGOCALCIFEROL 1,250 MCG (50,000 IU) CAPSULE PO SCH (21:35)
== END 2023-09-29 19:45 | disposition home or self-care (01) ==
LOC: EC 14:56 → 6NMEDSUR 18:07
PROVIDERS: ADMIT Family Medicine; ATTEND Family Medicine
DX: R07.89 Other chest pain (principal); I48.0 Paroxysmal atrial fibrillation; I11.0 Hypertensive heart disease with heart failure; I50.9 Heart failure, unspecified; E78.5 Hyperlipidemia, unspecified; K21.00 Gastro-esophageal reflux disease with esophagitis, without bleeding; I25.2 Old myocardial infarction; E66.9 Obesity, unspecified; Z68.28 Body mass index [BMI] 28.0-28.9, adult; Z79.82 Long term (current) use of aspirin; Z79.01 Long term (current) use of anticoagulants; Z79.890 Hormone replacement therapy; Z79.899 Other long term (current) drug therapy; Z88.2 Allergy status to sulfonamides; Z88.6 Allergy status to analgesic agent; Z87.891 Personal history of nicotine dependence; Z85.528 Personal history of other malignant neoplasm of kidney; Z90.5 Acquired absence of kidney
CPT/HCPCS: 96374; 99285; 36415; 94760; 93005 ×2; 93017; 80053; 83735; 84484; 85025; 85610; 85730; 71046; 78452; G0378 ×2; C8929; A9500; J2270; Q9957; J2785; 93306

== ENCOUNTER → 2024-03-16 | Outpatient (CLI) | payer MEDICARE ==
[2024-03-16 19:29] LABS: Basophils # (A) 0.02 X 10*3/uL (0.00-0.10); Basophils % (A) 0.3 %; Eosinophils # (A) 0.11 X 10*3/uL (0.04-0.35); Eosinophils % (A) 1.6 %; HCT 41.3 % (37.2-46.3); HGB 12.9 g/dL (12.0-15.0); Lymphocytes % (A) 26.5 %; MCHC 31.2 g/dL (32.0-37.0); MCV 89.6 FL (80.0-97.0); Mean Platelet Volume 11.2 FL (9.5-12.2); Monocytes # (A) 0.52 X 10*3/uL (0.20-1.00); Monocytes % (A) 7.6 %; NRBC Per 100 WBC 0 X 10*3/uL (0.00-0.01); Neutrophils # (A) 4.33 X 10*3/uL (1.80-7.70); Neutrophils % (A) 63.7 %; Platelet Count 279 X 10*3/uL (140-440); RBC 4.61 X 10*6/uL (4.10-5.20); RDW 13.3 % (11.5-14.5)
[2024-03-16 21:43] LABS: BUN/Creat Ratio 18.27 Ratio (12.00-20.00); Blood Urea Nitrogen 20.1 mg/dL (9.0-27.0); Calcium 9.5 mg/dL (8.7-10.3); Carbon Dioxide 25.1 mmol/L (21.6-31.8); Chloride 102 mmol/L (96-109); Glucose 103 mg/dL (70-110); Iron 54 UG/DL (50-170); Magnesium 1.8 mg/dL (1.5-2.4); Phosphorus 3.3 mg/dL (2.4-5.1); Sodium 138 mmol/L (135-145); Total Iron Binding Capacity 300 UG/DL (228-460)
== END | disposition home or self-care (01) ==
LOC: LABWHC1 12:51
PROVIDERS: ATTEND Internal Medicine
DX: N18.31 Chronic kidney disease, stage 3a (principal); D63.1 Anemia in chronic kidney disease; N25.81 Secondary hyperparathyroidism of renal origin; N39.0 Urinary tract infection, site not specified; E55.9 Vitamin D deficiency, unspecified; R80.9 Proteinuria, unspecified
CPT/HCPCS: 36415; 80048; 82306; 82728; 83540; 83550; 83735; 83970; 84100; 85025

== ENCOUNTER → 2024-05-10 | Outpatient (CLI) | payer MEDICARE ==
--- NOTE | 2024-05-11 08:00 | MR ---
EXAMINATION TYPE: MR brain wo/w con DATE OF EXAM: 05/10/2024 3:20 PM COMPARISON: None. CLINICAL INDICATION: Female, 68 years old with history of R22.41 LOCALIZED SWELLING, MASS AND LUMP, R IGHT LO; PH, Checking for cancer, right leg mass, kidney cancer history TECHNIQUE: Multi planar, multi sequence imaging was performed through the brain including: T1, T2, In version recovery, susceptibility weighted imaging and gradient echo imaging and Diffusion weighted im aging. The patient was then given intravenous contrast and multi planar, T1 fat-saturation images wer e obtained. IV Contrast: 8 mL Gadobutrol FINDINGS: The loomis-white junctions, ventricular system, basal cisterns appear unremarkable. Diffusion-weighted imaging shows no evidence of restricted diffusion to suggest acute/subacute infarct. Intracranial ar terial flow voids are maintained. Midline structures show no abnormality. The susceptibility weighted images do not reveal any evidence for micro-hemorrhage. After administration of gadolinium, no abnor mal enhancement is seen. The bone marrow signal is within normal limits. Paranasal sinuses and mastoid air cells: Mild scattered paranasal sinus disease. Visualized orbits: Orbital contents are intact. IMPRESSION: No evidence of intracranial mass, acute/subacute infarct, or abnormal enhancement. [facility], , 05/11/2024 7:58 AM
== END | disposition home or self-care (01) ==
LOC: RADMRIMAIN 14:04
PROVIDERS: ATTEND Family Medicine
DX: R22.41 Localized swelling, mass and lump, right lower limb (principal)
CPT/HCPCS: 70553; A9585

== ENCOUNTER → 2024-06-22 | Outpatient (CLI) | payer MEDICARE ==
--- NOTE | 2024-06-24 19:43 | PE ---
EXAMINATION TYPE: PET CT fusion skull to thigh DATE OF EXAM: 06/22/2024 CLINICAL INDICATION:Female, 68 years old with history of C64.2 RENAL CELL CANCER; TECHNIQUE: Following the intravenous administration of 9.54 mCi of F-18 FDG, whole body images are performed from the skull base to the midthigh. Images are reviewed on the computer in the coronal, a xial, and sagittal planes. Reconstructed rotating images are created on independent workstation and reviewed on the computer. A non-contrast CT is performed in conjunction with the PET scan. Glucose level 103 mg/dL CT DLP: 539.82 mGycm, Automated exposure control for dose reduction was used. COMPARISON: CT 04/12/2024, 11/05/2022, 09/30/2021, 07/12/2020, 01/11/2020, PET/CT None, MRI: 05/10/2024, 025, 10/18/2019, 02/04/2019, 09/26/2018, nuclear medicine: 04/13/2024 FINDINGS: Mediastinal SUV mean is 1.3. Hepatic parenchyma SUV mean is 1.7. SKULL BASE AND NECK: Mild diffuse FDG uptake throughout the thyroid gland. Demonstrates a maximum SUV of 6.5. CHEST, MEDIASTINUM, AND HILAR REGION: Mildly prominent 1 cm left axillary lymph node with FDG activity demonstrating a maximum SUV of 8.2. Additional smaller bilateral axillary lymph nodes with low level FDG activity. ABDOMEN AND PELVIS: Postsurgical changes from left nephrectomy without suspicious soft tissue or FDG activity within the surgical bed. MUSCULOSKELETAL STRUCTURES: Postsurgical changes with intramedullary raymundo and screw fixation involving the right femur with low le mesfin FDG activity related to postsurgical inflammation. OTHER CT: Left maxillary sinus 1.5 cm mucous retention cyst. Minimal bilateral carotid bulb calcifica tions. Atherosclerotic calcification of the aorta and its branches. Multilevel degenerative disc dise ase of the spine. Right-sided fusion changes with pedicular screw and raymundo involving L5-S1. Dextrocurv ature of the lumbar spine. Small coronary artery calcifications. Chronic elevation of the right hemid iaphragm. Inferior right renal pole 3.3 cm cyst without FDG activity. No follow up recommended. IMPRESSION: 1. Postsurgical changes from left nephrectomy without evidence for suspicious soft tissue or radiotr acer activity within the surgical bed to suggest local recurrence. 2. Mildly prominent bilateral axillary lymph nodes with majority demonstrating low level FDG activit y. There is a left axillary lymph node that demonstrates mild FDG activity. Findings could represent reactive inflammatory lymph nodes however metastasis is not entirely excluded. Consider further evalu ation with ultrasound. 3. Diffuse FDG activity within the thyroid gland suggesting thyroiditis. [facility], , 06/24/2024 7:41 PM
== END | disposition home or self-care (01) ==
LOC: RADPETMAIN 06:31
PROVIDERS: ATTEND Internal Medicine Hematology & Oncology
DX: C64.2 Malignant neoplasm of left kidney, except renal pelvis (principal); Z90.5 Acquired absence of kidney
CPT/HCPCS: 78815; A9552

== ENCOUNTER 2024-08-08 16:37 | Inpatient (IN) | payer MEDICARE ==
[2024-08-08] MEDS: SODIUM CHLORIDE 0.9% 1,000 ML IV ONE (17:29)
[2024-08-08] MEDS: HALOPERIDOL LACTATE 5 MG/ML 1 ML VIAL IVP STA (17:30)
[2024-08-08] MEDS: LORazepam 1 MG/0.5 ML VIAL IV STA (17:30)
[2024-08-08 17:50] LABS: Basophils # (A) 0.02 10*3/uL (0.00-0.10); Basophils % (A) 0.1 %; HCT 41.4 % (37.2-46.3); HGB 14.5 g/dL (12.0-15.0); Lymphocytes # (A) 0.94 10*3/uL (0.90-5.00); Lymphocytes % (A) 6.2 %; MCH 29.7 pg (27.0-32.0); MCV 84.8 fL (80.0-97.0); Mean Platelet Volume 9.3 fL (9.5-12.2); Monocytes # (A) 1.19 10*3/uL (0.20-1.00); Monocytes % (A) 7.8 %; Neutrophils # (A) 12.94 10*3/uL (1.80-7.70); Platelet Count 284 10*3/uL (140-440); RBC 4.88 10*6/uL (4.10-5.20); RDW 18.1 % (11.5-14.5); WBC 15.23 10*3/uL (4.50-10.00)
[2024-08-08 17:53] LABS: VBG PH 7.59 (7.31-7.41)
[2024-08-08 17:59] LABS: Appearance,Urine Clear (Clear); Bilirubin,Urine Negative (Negative); Blood,Urine Moderate (Negative); Color,Urine Light Yellow; Glucose,Urine (UA) Negative (Negative); Ketones,Urine Negative (Negative); Leukocyte Esterase,Urine Negative (Negative); Mucus,Urine Rare /hpf; Nitrite,Urine Negative (Negative); Protein,Urine 1+ (Negative); RBC,Urine 17 /hpf (0-5); Specific Gravity,Urine 1.019 (1.001-1.035); Squamous Epithelial Cell,Urine <1 /hpf (0-4); Urobilinogen,Urine <2.0 mg/dL (<2.0); WBC,Urine 2 /hpf (0-5)
--- NOTE | 2024-08-08 18:05 | ED ---
General Adult HPI - General Chief complaint: Altered Mental Status Stated complaint: AMS Time Seen by Provider: 08/08/24 17:08 Source: family Mode of arrival: wheelchair Limitations: no limitations - History of Present Illness Initial comments: Patient is a 69-year-old female presents emergency department for altered mental status, dehydration, nausea, vomiting, diarrhea. Has a history of renal cell carcinoma is currently receiving chemo and radiation. Normally is A and O x 4. Is currently alert and oriented x 1. Began this morning. Last night patient was not feeling well however seems worse today. Patient's brought her in. She is confused, not oriented. She is alert. Is a poor historian overall. Other than the nausea, vomiting, diarrhea history from the , no other symptoms at this time. Presents for further evaluation.Patient does have a recent right hip surgery a few months ago. No acute symptoms or complications since. - Related Data Home Medications Medication Instructions Recorded Confirmed ALPRAZolam [Xanax] 0.5 mg PO TID 07/08/17 08/08/24 Atorvastatin [Lipitor] 40 mg PO DAILY 09/23/20 08/08/24 Levothyroxine Sodium 137 mcg PO MOTUWETHFRSA 09/23/20 08/08/24 Apixaban [Eliquis] 5 mg PO BID 09/01/22 08/08/24 Fesoterodine Fumarate 8 mg PO DAILY 09/28/23 08/08/24 [Fesoterodine Fumarate ER] Isosorbide Mononitrate ER [Imdur] 30 mg PO DAILY 09/28/23 08/08/24 Metoprolol Succinate (ER) [Toprol 25 mg PO DAILY 09/28/23 08/08/24 XL] Ergocalciferol [Vitamin D2 (1250 1,250 mcg PO Q14D 04/10/24 08/08/24 Mcg = 48190 Iu)] Escitalopram [Lexapro] 10 mg PO DAILY 08/08/24 08/08/24 Ipilimumab [Yervoy] 1 dose IV Q21D 08/08/24 08/08/24 Losartan [Cozaar] 25 mg PO DAILY 08/08/24 08/08/24 Morphine Sulfate Ir [MSIR] 15 mg PO Q6H PRN 08/08/24 08/08/24 Nivolumab [Opdivo] 1 dose IV Q21D 08/08/24 08/08/24 Omeprazole [PriLOSEC] 20 mg PO DAILY 08/08/24 08/08/24 Ondansetron Odt [Zofran Odt] 8 mg PO Q8HR PRN 08/08/24 08/08/24 Allergies Allergy/AdvReac Type Severity Reaction Status Date / Time Sulfa (Sulfonamide Allergy Rash/Hives Verified 08/08/24 17:43 Antibiotics) NSAIDS (Non-Steroidal AdvReac NO NSAIDS Verified 08/08/24 17:43 Anti-Inflamma DUE TO ONLY 1 KIDNEY Review of Systems ROS Statement: Those systems with pertinent positive or pertinent negative responses have been documented in the HPI. ROS Other: All systems not noted in ROS Statement are negative. Past Medical History Past Medical History: Cancer, Chest Pain / Angina, Heart Failure, GERD/Reflux, Hyperlipidemia, Hypertension, Myocardial Infarction (OK), Pneumonia, Sleep Apnea/CPAP/BIPAP, Thyroid Disorder Additional Past Medical History / Comment(s): "2012 electrical heart attack", PUD, hypothyroid, low back pain, past migraines, lt foot fx with surgery, rib fx, diverticulosis dx/benign polyp.stress test 02-17-17, lt kidney ca(sx) one kidney Last Myocardial Infarction Date:: 2012 History of Any Multi-Drug Resistant Organisms: None Reported Past Surgical History: Back Surgery, Heart Catheterization, Orthopedic Surgery, Tonsillectomy, Tubal Ligation Additional Past Surgical History / Comment(s): 2012 cardiac cath-normal x2, 01/11/17 colonoscopy/benign polypectomy, ORIF LT FT, back x2, "lt NEPHRECTOMY d/t cancer". 09/30-heart cath-clear. dehiscence of incision with kidney surgery trigger finger repair rt hand Past Anesthesia/Blood Transfusion Reactions: No Reported Reaction Additional Past Anesthesia/Blood Transfusion Reaction / Comment(s): no hx blood transfusion severe post op nausea elevation in blood pressure aspirated lost voice x3 mos after a surgery at [facility] does not want propofol Past Psychological History: Anxiety, Depression Smoking Status: Former smoker Past Alcohol Use History: None Reported Past Drug Use History: Marijuana - Past Family History Mother Family Medical History: Hyperlipidemia Additional Family Medical History / Comment(s): Mother was healthy and lived to be 92 yrs. old. alcohol abuse Father History Unknown: Yes Family Medical History: Chest Pain / Angina General Exam - General Exam Comments Initial Comments: General: Appears agitated and confused. HEAD: Normal with no signs of head trauma. EYES: PERRLA, EOMI, conjunctiva normal, no discharge. Pupils are 3 to 4 mm and equal bilaterally. ENT: Hearing grossly intact, normal oropharynx. RESPIRATORY: Clear breath sounds bilaterally. No wheezes, rales, or rhonchi. Increased respirations. C/V: Tachycardic with regular rhythm. S1 and S2 auscultated, no edema, peripheral pulses 2+ and intact throughout ABD: Abd is soft, nontender, nondistended EXT: Normal range of motion, no obvious deformity. Recent right hip surgical location appears well. No obvious sign of infection. SKIN: No rashes or lesions observed on exposed skin. NEURO: Alert but not oriented. Moving all 4 extremities. Limitations: no limitations Course Vital Signs 08/08/24 08/08/24 08/08/24 16:42 17:37 18:12 Temperature 99.7 F H 98.5 F Pulse Rate 108 H 95 Respiratory 26 H 20 Rate Blood Pressure 177/122 167/76 O2 Sat by Pulse 98 95 Oximetry 08/08/24 19:32 Temperature Pulse Rate 83 Respiratory 19 Rate Blood Pressure O2 Sat by Pulse 97 Oximetry Medical Decision Making - Medical Decision Making Was pt. sent in by a medical professional or institution (TIERA Ambrosio, BALING MACHINE TENDER, urgent care, hospital, or fci...) When possible be specific @ -No Did you speak to anyone other than the patient for history (EMS, parent, family, police, friend...)? What history was obtained from this source @ -Patient's assist with patient's past medical history. Did you review nursing and triage notes (agree or disagree)? Why? @ -I reviewed and agree with nursing and triage notes Were old charts reviewed (outside hosp., previous admission, EMS record, old EKG, old radiological studies, urgent care reports/EKG's, fci records)? Report findings @ -Old charts including medication list which shows patient is on Eliquis. Differential Diagnosis (chest pain, altered mental status, abdominal pain women, abdominal pain men, vaginal bleeding, weakness, fever, dyspnea, syncope, headache, dizziness, GI bleed, back pain, seizure, CVA, palpatations, mental health, musculoskeletal)? @ -Differential Altered Mental Status: Hypoglycemia, DKA, hypercapnia, ETOH, overdose, CO poisoning, trauma, myxedema coma, HTN encephalopathy, infection, encephalitis, psychosis, intercranial hemorrhage, hepatic encephalopathy, meningitis, CVA, this is not meant to be an all-inclusive list EKG interpreted by me (3pts min.). @ -As above X-rays interpreted by me (1pt min.). @ -None done CT interpreted by me (1pt min.). @ -CT brain, CT chest abdomen pelvis negative for any obvious acute process. Does show stool in the rectum however patient has been having diarrhea and no concern for bowel obstruction or decreased bowel movements. Clinically does not fit. U/S interpreted by me (1pt. min.). @ -None done What testing was considered but not performed or refused? (CT, X-rays, U/S, labs)? Why? @ -None What meds were considered but not given or refused? Why? @ -None Did you discuss the management of the patient with other professionals (professionals i.e. , PA, BALING MACHINE TENDER, lab, RT, psych nurse, social work manager, materials intern, teacher, motorized squad commanding officer, director of casework services)? Give summary @ -No Was smoking cessation discussed for >3mins.? @ -No Was critical care preformed (if so, how long)? @ -Yes, 37 minutes Were there social determinants of health that impacted care today? How? (Homelessness, low income, unemployed, alcoholism, drug addiction, transportation, low edu. Level, literacy, decrease access to med. care, correction, rehab)? @ -No Was there de-escalation of care discussed even if they declined (Discuss DNR or withdrawal of care, Hospice)? DNR status @ -No What co-morbidities impacted this encounter? (DM, HTN, Smoking, COPD, CAD, Cancer, CVA, ARF, Chemo, Hep., AIDS, mental health diagnosis, sleep apnea, morbid obesity)? @ -Renal cell cancer Was patient admitted / discharged? Hospital course, mention meds given and route, prescriptions, significant lab abnormalities, going to OR and other pertinent info. @ -Presents emergency department for altered mental status. We will obtain altered mental status workup. She will be given IV fluids as she does appear dehydrated. She is also given IV Haldol as well as Ativan due to the agitation. Patient's family in agreement this plan. Laboratory studies remarkable for leukocytosis of 15, lactic acidosis of 5.1, elevated troponin of 0.108, hypokalemia 3.2. UDS positive for marijuana, benzos, opiates. Viral swabs negative. CT brain, chest and pelvis negative for any obvious acute process. Patient given rectal aspirin. Patient met sepsis criteria at 1843. Blood culture ordered. Patient started on broad-spectrum vancomycin and cefepime. Patient given second liter of fluid bolus of lactated Ringer's and start at 130 cc an hour of lactated Ringer's. Hemodynamically stable. On reevaluation, patient is sleeping peacefully. Discussed results with the patient's . Patient will be admitted to the hospital with neurology consult as well as cardiology consult. Elevated troponin with 2 EKGs that appear relatively unremarkable likely secondary to other processes and we will continue Eliquis at this time. We will continue to monitor but not initiate any other therapy. She has received aspirin. Patient's in agreement this plan. I spoke with the admitting provider, Dr. Mcdonnell who was in agreement this plan. Cardiology, neurology, oncology consulted. Undiagnosed new problem with uncertain prognosis? @ -No Drug Therapy requiring intensive monitoring for toxicity (Heparin, Nitro, Insulin, Cardizem)? @ -No Were any procedures done? @ -No Diagnosis/symptom? @ -Sepsis, source unknown. Encephalopathy. Hypokalemia. Elevated troponin. Dehydration. Acute, or Chronic, or Acute on Chronic? @ -Acute Uncomplicated (without systemic symptoms) or Complicated (systemic symptoms)? @ -Complicated Side effects of treatment? @ -No Exacerbation, Progression, or Severe Exacerbation? @ -No Poses a threat to life or bodily function? How? (Chest pain, [place], [place], pneumonia, PE, COPD, DKA, ARF, appy, cholecystitis, CVA, Diverticulitis, Homicidal, Suicidal, threat to staff... and all critical care pts) @ -Yes - Lab Data Result diagrams: 08/08/24 17:27 08/08/24 17:17 Lab Results 08/08/24 08/08/24 08/08/24 Range/Units 17:17 17:18 17:27 WBC 15.23 H (4.50-10.00) 10*3/uL RBC 4.88 (4.10-5.20) 10*6/uL Hgb 14.5 (12.0-15.0) g/dL Hct 41.4 (37.2-46.3) % MCV 84.8 (80.0-97.0) fL MCH 29.7 (27.0-32.0) pg MCHC 35.0 (32.0-37.0) g/dL Plt Count 284 (140-440) 10*3/uL MPV 9.3 L (9.5-12.2) fL Immature Gran % (Auto) 0.9 % Neutrophils % 85.0 % Lymphocytes % 6.2 % Monocytes % 7.8 % Eosinophils % 0.0 % Basophils % 0.1 % Immature Gran # 0.14 H (0.00-0.04) 10*3/uL Neutrophils # 12.94 H (1.80-7.70) 10*3/uL Lymphocytes # 0.94 (0.90-5.00) 10*3/uL Monocytes # 1.19 H (0.20-1.00) 10*3/uL Eosinophils # 0.00 L (0.04-0.35) 10*3/uL Basophils # 0.02 (0.00-0.10) 10*3/uL PT (10.0-12.5) sec INR (<1.2) APTT (22.0-30.0) sec VBG pH 7.59 H (7.31-7.41) VBG pCO2 23 L (37-51) mmHg VBG HCO3 22 L (24-28) mmol/L Sodium 136 L (137-145) mmol/L Potassium 3.2 L (3.5-5.1) mmol/L Chloride 98 (98-107) mmol/L Carbon Dioxide 19 L (22-30) mmol/L Anion Gap 19 mmol/L BUN 19 H (7-17) mg/dL Creatinine 0.79 (0.52-1.04) mg/dL Est GFR (CKD-EPI)AfAm 90 (>60 ml/min/1.73 sqM) Est GFR (CKD-EPI)NonAf 78 (>60 ml/min/1.73 sqM) Glucose 139 H (74-99) mg/dL Plasma Lactic Acid Yg (0.7-2.0) mmol/L Calcium 10.2 (8.4-10.2) mg/dL Total Bilirubin 1.2 (0.2-1.3) mg/dL AST 44 H (14-36) U/L ALT 40 H (4-34) U/L Alkaline Phosphatase 83 (38-126) U/L Ammonia (<30) umol/L Troponin I (0.000-0.034) ng/mL Total Protein 8.0 (6.3-8.2) g/dL Albumin 4.6 (3.5-5.0) g/dL Urine Color Urine Appearance (Clear) Urine pH (5.0-8.0) Ur Specific [place] (1.001-1.035) Urine Protein (Negative) Urine Glucose (UA) (Negative) Urine Ketones (Negative) Urine Blood (Negative) Urine Nitrite (Negative) Urine Bilirubin (Negative) Urine Urobilinogen (<2.0) mg/dL Ur Leukocyte Esterase (Negative) Urine RBC (0-5) /hpf Urine WBC (0-5) /hpf Ur Squamous Epith Cells (0-4) /hpf Urine Mucus (None) /hpf Salicylates <1.0 mg/dL Urine Opiates Screen (NotDetected) Ur Oxycodone Screen (NotDetected) Urine Methadone Screen (NotDetected) Acetaminophen <10.0 ug/mL Ur Barbiturates Screen (NotDetected) U Tricyclic Antidepress (NotDetected) Ur Phencyclidine Scrn (NotDetected) Ur Amphetamines Screen (NotDetected) U Methamphetamines Scrn (NotDetected) U Benzodiazepines Scrn (NotDetected) Urine Cocaine Screen (NotDetected) U Marijuana (THC) Screen (NotDetected) Serum Alcohol <10 mg/dL Influenza Type A (PCR) (Not Detectd) Influenza Type B (PCR) (Not Detectd) RSV (PCR) (Not Detectd) SARS-CoV-2 (PCR) (Not Detectd) 08/08/24 08/08/24 08/08/24 Range/Units 17:27 17:27 17:27 WBC (4.50-10.00) 10*3/uL RBC (4.10-5.20) 10*6/uL Hgb (12.0-15.0) g/dL Hct (37.2-46.3) % MCV (80.0-97.0) fL MCH (27.0-32.0) pg MCHC (32.0-37.0) g/dL Plt Count (140-440) 10*3/uL MPV (9.5-12.2) fL Immature Gran % (Auto) % Neutrophils % % Lymphocytes % % Monocytes % % Eosinophils % % Basophils % % Immature Gran # (0.00-0.04) 10*3/uL Neutrophils # (1.80-7.70) 10*3/uL Lymphocytes # (0.90-5.00) 10*3/uL Monocytes # (0.20-1.00) 10*3/uL Eosinophils # (0.04-0.35) 10*3/uL Basophils # (0.00-0.10) 10*3/uL PT 11.1 (10.0-12.5) sec INR 1.0 (<1.2) APTT 21.5 L (22.0-30.0) sec VBG pH (7.31-7.41) VBG pCO2 (37-51) mmHg VBG HCO3 (24-28) mmol/L Sodium (137-145) mmol/L Potassium (3.5-5.1) mmol/L Chloride (98-107) mmol/L Carbon Dioxide (22-30) mmol/L Anion Gap mmol/L BUN (7-17) mg/dL Creatinine (0.52-1.04) mg/dL Est GFR (CKD-EPI)AfAm (>60 ml/min/1.73 sqM) Est GFR (CKD-EPI)NonAf (>60 ml/min/1.73 sqM) Glucose (74-99) mg/dL Plasma Lactic Acid Yg 5.1 H* (0.7-2.0) mmol/L Calcium (8.4-10.2) mg/dL Total Bilirubin (0.2-1.3) mg/dL AST (14-36) U/L ALT (4-34) U/L Alkaline Phosphatase (38-126) U/L Ammonia 11 (<30) umol/L Troponin I 0.108 H* (0.000-0.034) ng/mL Total Protein (6.3-8.2) g/dL Albumin (3.5-5.0) g/dL Urine Color Urine Appearance (Clear) Urine pH (5.0-8.0) Ur Specific [place] (1.001-1.035) Urine Protein (Negative) Urine Glucose (UA) (Negative) Urine Ketones (Negative) Urine Blood (Negative) Urine Nitrite (Negative) Urine Bilirubin (Negative) Urine Urobilinogen (<2.0) mg/dL Ur Leukocyte Esterase (Negative) Urine RBC (0-5) /hpf Urine WBC (0-5) /hpf Ur Squamous Epith Cells (0-4) /hpf Urine Mucus (None) /hpf Salicylates mg/dL Urine Opiates Screen (NotDetected) Ur Oxycodone Screen (NotDetected) Urine Methadone Screen (NotDetected) Acetaminophen ug/mL Ur Barbiturates Screen (NotDetected) U Tricyclic Antidepress (NotDetected) Ur Phencyclidine Scrn (NotDetected) Ur Amphetamines Screen (NotDetected) U Methamphetamines Scrn (NotDetected) U Benzodiazepines Scrn (NotDetected) Urine Cocaine Screen (NotDetected) U Marijuana (THC) Screen (NotDetected) Serum Alcohol mg/dL Influenza Type A (PCR) (Not Detectd) Influenza Type B (PCR) (Not Detectd) RSV (PCR) (Not Detectd) SARS-CoV-2 (PCR) (Not Detectd) 08/08/24 08/08/24 Range/Units 17:27 17:46 WBC (4.50-10.00) 10*3/uL RBC (4.10-5.20) 10*6/uL Hgb (12.0-15.0) g/dL Hct (37.2-46.3) % MCV (80.0-97.0) fL MCH (27.0-32.0) pg MCHC (32.0-37.0) g/dL Plt Count (140-440) 10*3/uL MPV (9.5-12.2) fL Immature Gran % (Auto) % Neutrophils % % Lymphocytes % % Monocytes % % Eosinophils % % Basophils % % Immature Gran # (0.00-0.04) 10*3/uL Neutrophils # (1.80-7.70) 10*3/uL Lymphocytes # (0.90-5.00) 10*3/uL Monocytes # (0.20-1.00) 10*3/uL Eosinophils # (0.04-0.35) 10*3/uL Basophils # (0.00-0.10) 10*3/uL PT (10.0-12.5) sec INR (<1.2) APTT (22.0-30.0) sec VBG pH (7.31-7.41) VBG pCO2 (37-51) mmHg VBG HCO3 (24-28) mmol/L Sodium (137-145) mmol/L Potassium (3.5-5.1) mmol/L Chloride (98-107) mmol/L Carbon Dioxide (22-30) mmol/L Anion Gap mmol/L BUN (7-17) mg/dL Creatinine (0.52-1.04) mg/dL Est GFR (CKD-EPI)AfAm (>60 ml/min/1.73 sqM) Est GFR (CKD-EPI)NonAf (>60 ml/min/1.73 sqM) Glucose (74-99) mg/dL Plasma Lactic Acid Yg (0.7-2.0) mmol/L Calcium (8.4-10.2) mg/dL Total Bilirubin (0.2-1.3) mg/dL AST (14-36) U/L ALT (4-34) U/L Alkaline Phosphatase (38-126) U/L Ammonia (<30) umol/L Troponin I (0.000-0.034) ng/mL Total Protein (6.3-8.2) g/dL Albumin (3.5-5.0) g/dL Urine Color Light Yellow Urine Appearance Clear (Clear) Urine pH 8.0 (5.0-8.0) Ur Specific [place] 1.019 (1.001-1.035) Urine Protein 1+ H (Negative) Urine Glucose (UA) Negative (Negative) Urine Ketones Negative (Negative) Urine Blood Moderate H (Negative) Urine Nitrite Negative (Negative) Urine Bilirubin Negative (Negative) Urine Urobilinogen <2.0 (<2.0) mg/dL Ur Leukocyte Esterase Negative (Negative) Urine RBC 17 H (0-5) /hpf Urine WBC 2 (0-5) /hpf Ur Squamous Epith Cells <1 (0-4) /hpf Urine Mucus Rare H (None) /hpf Salicylates mg/dL Urine Opiates Screen Detected H (NotDetected) Ur Oxycodone Screen Not Detected (NotDetected) Urine Methadone Screen Not Detected (NotDetected) Acetaminophen ug/mL Ur Barbiturates Screen Not Detected (NotDetected) U Tricyclic Antidepress Not Detected (NotDetected) Ur Phencyclidine Scrn Not Detected (NotDetected) Ur Amphetamines Screen Not Detected (NotDetected) U Methamphetamines Scrn Not Detected (NotDetected) U Benzodiazepines Scrn Detected H (NotDetected) Urine Cocaine Screen Not Detected (NotDetected) U Marijuana (THC) Screen Detected H (NotDetected) Serum Alcohol mg/dL Influenza Type A (PCR) Not Detected (Not Detectd) Influenza Type B (PCR) Not Detected (Not Detectd) RSV (PCR) Not Detected (Not Detectd) SARS-CoV-2 (PCR) Not Detected (Not Detectd) - EKG Data -: EKG Interpreted by Me EKG Comments: 12-lead Electrocardiogram Interpretation Note EKG was reviewed and interpreted by myself. 12-lead ECG performed at 1709 is interpreted by me as revealing normal sinus rhythm at a rate of 95 beats per minute. [place] is normal. [place] interval is 146 ms, QRS duration is 82 ms, QTc is 377 ms.. There were no ST or T wave abnormalities to suggest myocardial ischemia or injury. R wave progression across the precordium was satisfactory. By my interpretation this EKG is non-diagnostic for acute ischemia. Critical Care Time Critical Care Time: Yes Total Critical Care Time: 37 Disposition Clinical Impression: Encephalopathy, Elevated troponin, Dehydration, Hypokalemia, Sepsis Disposition: ADMITTED IP TO THIS [facility] Condition: Stable Referrals: Edvin Mcdonnell MD [Primary Care Provider] - 1-2 days Time of Disposition: 19:36
[2024-08-08 18:07] LABS: Cocaine Screen,Urine Not Detected (NotDetected); Phencyclidine Screen,Urine Not Detected (NotDetected); Urn Cannabinoid Scrn Detected (NotDetected)
[2024-08-08 18:07] LABS: AST 44 U/L (14-36); Acetaminophen <10.0 ug/mL; African American GFR (CKD) 90 (>60 ml/min/1.73 sqM); Albumin 4.6 g/dL (3.5-5.0); Alcohol <10 mg/dL; Alkaline Phosphatase 83 U/L (38-126); Anion Gap 19 mmol/L; Blood Urea Nitrogen 19 mg/dL (7-17); Calcium 10.2 mg/dL (8.4-10.2); Carbon Dioxide 19 mmol/L (22-30); Chloride 98 mmol/L (98-107); Glucose 139 mg/dL (74-99); Non-African American GFR(CKD) 78 (>60 ml/min/1.73 sqM); Potassium 3.2 mmol/L (3.5-5.1); Salicylate <1.0 mg/dL; Sodium 136 mmol/L (137-145); Total Bilirubin 1.2 mg/dL (0.2-1.3)
[2024-08-08 18:08] LABS: Amphetamine Screen,Urine Not Detected (NotDetected); Barbiturate Screen,Urine Not Detected (NotDetected); Benzodiazepines Screen,Urine Detected (NotDetected); Methadone Screen, Urine Not Detected (NotDetected); Opiate Screen,Urine Detected (NotDetected); Oxycodone Screen, Urine Not Detected (NotDetected); Tricyclic Antidepressant,Urine Not Detected (NotDetected)
[2024-08-08 18:12] LABS: Partial Thromboplastin Time 21.5 sec (22.0-30.0); Prothrombin Time 11.1 sec (10.0-12.5)
[2024-08-08 18:14] LABS: ALT 40 U/L (4-34)
[2024-08-08 18:27] LABS: Influenza A Not Detected (Not Detectd); Influenza B Not Detected (Not Detectd); RSV Not Detected (Not Detectd)
[2024-08-08 18:29] LABS: Lactic Acid, Venous 5.1 mmol/L (0.7-2.0)
[2024-08-08] MEDS ORDERED: VANCOMYCIN IV PER PHARMACY 1 EACH MISC MISCELLANE PRN (18:44)
[2024-08-08] MEDS: LACTATED RINGERS 1,000 ML IV ONE (18:52)
[2024-08-08] MEDS: LACTATED RINGERS 1,000 ML IV SCH (18:52)
[2024-08-08] MEDS: CEFEPIME 2 GM in SODIUM CHLORIDE 0.9% 100 ML IVPB SCH (18:55)
--- NOTE | 2024-08-08 18:55 | CT ---
EXAMINATION TYPE: CT brain wo con DATE OF EXAM: 08/08/2024 6:46 PM COMPARISON: None. CLINICAL INDICATION: Female, 69 years old with history of Altered mental status, Pt presents to ED fo r c/o nausea, vomiting, and altered mental status. Pt currently receiving radiation for bone cancer TECHNIQUE: CT of the brain is performed utilizing 3 mm thick sections through the posterior fossa and 3 mm thick sections through the remaining calvarium. Study is performed within 24 hours of arrival to the hospital. Contrast used: mL of , (none if empty) CT DLP: 1097.9 mGycm, Automated exposure control for dose reduction was used. FINDINGS: No abnormal hyperdensity is present to suggest an acute intracranial hemorrhage. No mass lesion is evident. No acute infarcts are evident. Ventricles and sulci are appropriate for the patient age. Paranasal sinuses and mastoid air cells within the [id number] are clear. IMPRESSION: 1. No acute intracranial process. Follow up MRI can be performed as clinically indicated. [facility], , 08/08/2024 6:52 PM
--- NOTE | 2024-08-08 19:20 | CT ---
EXAMINATION TYPE: CT ChestAbdPelvis w con DATE OF EXAM: 08/08/2024 6:46 PM COMPARISON: None. CLINICAL INDICATION: Female, 69 years old with history of AMS, n/v, Pt presents to ED for c/o nausea, vomiting, and altered mental status. Pt currently receiving radiation for bone cancer TECHNIQUE: CT ChestAbdPelvis w con , with sagittal coronal reformats. If MIP/3-D images were created, there are created on a separate workstation. Contrast used:100 ml mL of Isovue 300 with IV Contrast, (none if empty) Oral contrast used: without Oral Contrast (none if empty) CT DLP: 1301.5 mGycm, Automated exposure control for dose reduction was used. FINDINGS: CT CHEST: Portion of the thyroid visualized is normal. No suspicious lung nodules or focal infiltrates are present. No enlarged mediastinal or hilar adenopathy is evident. No significant coronary artery calcification s. The ascending aorta diameter at the level of the main pulmonary artery is 2.9 cm. The main pulmonary artery diameter at the bifurcation is 2.[address] ABDOMEN: Liver: Normal Spleen: Normal Pancreas: Normal Adrenal glands: The adrenal glands are normal. Gallbladder: Normal Kidneys: There is a solitary right kidney. There is a cyst at the inferior pole right kidney. Delayed images were obtained through the kidney which appears unremarkable. No masses are identified. No hy dronephrosis Aorta: Vascular calcification is within the aorta. Inferior vena cava: Normal. CT PELVIS: Loops of bowel within the abdomen and pelvis are normal. Study is without oral contrast limiting evaluation. There is a fecal bolus in the rectum. Appendix: Normal as visualized. Urinary bladder: Normal. Genitourinary structures: Uterus appears normal. Adnexa are normal. Osseous structures: Sclerotic areas are through the lumbar spine. There is a right hip pain. Right pe dicle screw is present IMPRESSION: 1. Fecal balls. Correlate for fecal impaction at the rectum. No changes to suggest obstruction within the colon or small bowel loops. 2. Inferior pole right renal cyst. 3. Post left nephrectomy. [facility], , 08/08/2024 7:17 PM
[2024-08-08] MEDS ORDERED: NALOXONE 0.4 MG/ML 1 ML VIAL IV PRN (19:36)
[2024-08-08] MEDS: ASPIRIN 300 MG SUPP RECTAL STA (20:02)
[2024-08-08] MEDS: VANCOMYCIN 1,500 MG in SODIUM CHLORIDE 0.9% 500 ML 500 ML IVPB STA (20:26)
[2024-08-08] MEDS: POTASSIUM CHLORIDE 10 MEQ in WATER FOR INJECTION 1 100ML.BAG IVPB SCH (20:37)
--- NOTE | 2024-08-08 20:40 | ED ---
Medical Decision Making - Lab Data Result diagrams: 08/08/24 17:27 08/08/24 17:17 Lab Results 08/08/24 08/08/24 08/08/24 Range/Units 17:17 17:18 17:27 WBC 15.23 H (4.50-10.00) 10*3/uL RBC 4.88 (4.10-5.20) 10*6/uL Hgb 14.5 (12.0-15.0) g/dL Hct 41.4 (37.2-46.3) % MCV 84.8 (80.0-97.0) fL MCH 29.7 (27.0-32.0) pg MCHC 35.0 (32.0-37.0) g/dL Plt Count 284 (140-440) 10*3/uL MPV 9.3 L (9.5-12.2) fL Immature Gran % (Auto) 0.9 % Neutrophils % 85.0 % Lymphocytes % 6.2 % Monocytes % 7.8 % Eosinophils % 0.0 % Basophils % 0.1 % Immature Gran # 0.14 H (0.00-0.04) 10*3/uL Neutrophils # 12.94 H (1.80-7.70) 10*3/uL Lymphocytes # 0.94 (0.90-5.00) 10*3/uL Monocytes # 1.19 H (0.20-1.00) 10*3/uL Eosinophils # 0.00 L (0.04-0.35) 10*3/uL Basophils # 0.02 (0.00-0.10) 10*3/uL PT (10.0-12.5) sec INR (<1.2) APTT (22.0-30.0) sec VBG pH 7.59 H (7.31-7.41) VBG pCO2 23 L (37-51) mmHg VBG HCO3 22 L (24-28) mmol/L Sodium 136 L (137-145) mmol/L Potassium 3.2 L (3.5-5.1) mmol/L Chloride 98 (98-107) mmol/L Carbon Dioxide 19 L (22-30) mmol/L Anion Gap 19 mmol/L BUN 19 H (7-17) mg/dL Creatinine 0.79 (0.52-1.04) mg/dL Est GFR (CKD-EPI)AfAm 90 (>60 ml/min/1.73 sqM) Est GFR (CKD-EPI)NonAf 78 (>60 ml/min/1.73 sqM) Glucose 139 H (74-99) mg/dL Lactic Ac Sepsis Rflx Plasma Lactic Acid Yg (0.7-2.0) mmol/L Calcium 10.2 (8.4-10.2) mg/dL Total Bilirubin 1.2 (0.2-1.3) mg/dL AST 44 H (14-36) U/L ALT 40 H (4-34) U/L Alkaline Phosphatase 83 (38-126) U/L Ammonia (<30) umol/L Troponin I (0.000-0.034) ng/mL Total Protein 8.0 (6.3-8.2) g/dL Albumin 4.6 (3.5-5.0) g/dL Urine Color Urine Appearance (Clear) Urine pH (5.0-8.0) Ur Specific [place] (1.001-1.035) Urine Protein (Negative) Urine Glucose (UA) (Negative) Urine Ketones (Negative) Urine Blood (Negative) Urine Nitrite (Negative) Urine Bilirubin (Negative) Urine Urobilinogen (<2.0) mg/dL Ur Leukocyte Esterase (Negative) Urine RBC (0-5) /hpf Urine WBC (0-5) /hpf Ur Squamous Epith Cells (0-4) /hpf Urine Mucus (None) /hpf Salicylates <1.0 mg/dL Urine Opiates Screen (NotDetected) Ur Oxycodone Screen (NotDetected) Urine Methadone Screen (NotDetected) Acetaminophen <10.0 ug/mL Ur Barbiturates Screen (NotDetected) U Tricyclic Antidepress (NotDetected) Ur Phencyclidine Scrn (NotDetected) Ur Amphetamines Screen (NotDetected) U Methamphetamines Scrn (NotDetected) U Benzodiazepines Scrn (NotDetected) Urine Cocaine Screen (NotDetected) U Marijuana (THC) Screen (NotDetected) Serum Alcohol <10 mg/dL Influenza Type A (PCR) (Not Detectd) Influenza Type B (PCR) (Not Detectd) RSV (PCR) (Not Detectd) SARS-CoV-2 (PCR) (Not Detectd) 08/08/24 08/08/24 08/08/24 Range/Units 17:27 17:27 17:27 WBC (4.50-10.00) 10*3/uL RBC (4.10-5.20) 10*6/uL Hgb (12.0-15.0) g/dL Hct (37.2-46.3) % MCV (80.0-97.0) fL MCH (27.0-32.0) pg MCHC (32.0-37.0) g/dL Plt Count (140-440) 10*3/uL MPV (9.5-12.2) fL Immature Gran % (Auto) % Neutrophils % % Lymphocytes % % Monocytes % % Eosinophils % % Basophils % % Immature Gran # (0.00-0.04) 10*3/uL Neutrophils # (1.80-7.70) 10*3/uL Lymphocytes # (0.90-5.00) 10*3/uL Monocytes # (0.20-1.00) 10*3/uL Eosinophils # (0.04-0.35) 10*3/uL Basophils # (0.00-0.10) 10*3/uL PT 11.1 (10.0-12.5) sec INR 1.0 (<1.2) APTT 21.5 L (22.0-30.0) sec VBG pH (7.31-7.41) VBG pCO2 (37-51) mmHg VBG HCO3 (24-28) mmol/L Sodium (137-145) mmol/L Potassium (3.5-5.1) mmol/L Chloride (98-107) mmol/L Carbon Dioxide (22-30) mmol/L Anion Gap mmol/L BUN (7-17) mg/dL Creatinine (0.52-1.04) mg/dL Est GFR (CKD-EPI)AfAm (>60 ml/min/1.73 sqM) Est GFR (CKD-EPI)NonAf (>60 ml/min/1.73 sqM) Glucose (74-99) mg/dL Lactic Ac Sepsis Rflx Plasma Lactic Acid Yg 5.1 H* (0.7-2.0) mmol/L Calcium (8.4-10.2) mg/dL Total Bilirubin (0.2-1.3) mg/dL AST (14-36) U/L ALT (4-34) U/L Alkaline Phosphatase (38-126) U/L Ammonia 11 (<30) umol/L Troponin I 0.108 H* (0.000-0.034) ng/mL Total Protein (6.3-8.2) g/dL Albumin (3.5-5.0) g/dL Urine Color Urine Appearance (Clear) Urine pH (5.0-8.0) Ur Specific [place] (1.001-1.035) Urine Protein (Negative) Urine Glucose (UA) (Negative) Urine Ketones (Negative) Urine Blood (Negative) Urine Nitrite (Negative) Urine Bilirubin (Negative) Urine Urobilinogen (<2.0) mg/dL Ur Leukocyte Esterase (Negative) Urine RBC (0-5) /hpf Urine WBC (0-5) /hpf Ur Squamous Epith Cells (0-4) /hpf Urine Mucus (None) /hpf Salicylates mg/dL Urine Opiates Screen (NotDetected) Ur Oxycodone Screen (NotDetected) Urine Methadone Screen (NotDetected) Acetaminophen ug/mL Ur Barbiturates Screen (NotDetected) U Tricyclic Antidepress (NotDetected) Ur Phencyclidine Scrn (NotDetected) Ur Amphetamines Screen (NotDetected) U Methamphetamines Scrn (NotDetected) U Benzodiazepines Scrn (NotDetected) Urine Cocaine Screen (NotDetected) U Marijuana (THC) Screen (NotDetected) Serum Alcohol mg/dL Influenza Type A (PCR) (Not Detectd) Influenza Type B (PCR) (Not Detectd) RSV (PCR) (Not Detectd) SARS-CoV-2 (PCR) (Not Detectd) 08/08/24 08/08/24 08/08/24 Range/Units 17:27 17:46 18:30 WBC (4.50-10.00) 10*3/uL RBC (4.10-5.20) 10*6/uL Hgb (12.0-15.0) g/dL Hct (37.2-46.3) % MCV (80.0-97.0) fL MCH (27.0-32.0) pg MCHC (32.0-37.0) g/dL Plt Count (140-440) 10*3/uL MPV (9.5-12.2) fL Immature Gran % (Auto) % Neutrophils % % Lymphocytes % % Monocytes % % Eosinophils % % Basophils % % Immature Gran # (0.00-0.04) 10*3/uL Neutrophils # (1.80-7.70) 10*3/uL Lymphocytes # (0.90-5.00) 10*3/uL Monocytes # (0.20-1.00) 10*3/uL Eosinophils # (0.04-0.35) 10*3/uL Basophils # (0.00-0.10) 10*3/uL PT (10.0-12.5) sec INR (<1.2) APTT (22.0-30.0) sec VBG pH (7.31-7.41) VBG pCO2 (37-51) mmHg VBG HCO3 (24-28) mmol/L Sodium (137-145) mmol/L Potassium (3.5-5.1) mmol/L Chloride (98-107) mmol/L Carbon Dioxide (22-30) mmol/L Anion Gap mmol/L BUN (7-17) mg/dL Creatinine (0.52-1.04) mg/dL Est GFR (CKD-EPI)AfAm (>60 ml/min/1.73 sqM) Est GFR (CKD-EPI)NonAf (>60 ml/min/1.73 sqM) Glucose (74-99) mg/dL Lactic Ac Sepsis Rflx Y Plasma Lactic Acid Yg (0.7-2.0) mmol/L Calcium (8.4-10.2) mg/dL Total Bilirubin (0.2-1.3) mg/dL AST (14-36) U/L ALT (4-34) U/L Alkaline Phosphatase (38-126) U/L Ammonia (<30) umol/L Troponin I (0.000-0.034) ng/mL Total Protein (6.3-8.2) g/dL Albumin (3.5-5.0) g/dL Urine Color Light Yellow Urine Appearance Clear (Clear) Urine pH 8.0 (5.0-8.0) Ur Specific [place] 1.019 (1.001-1.035) Urine Protein 1+ H (Negative) Urine Glucose (UA) Negative (Negative) Urine Ketones Negative (Negative) Urine Blood Moderate H (Negative) Urine Nitrite Negative (Negative) Urine Bilirubin Negative (Negative) Urine Urobilinogen <2.0 (<2.0) mg/dL Ur Leukocyte Esterase Negative (Negative) Urine RBC 17 H (0-5) /hpf Urine WBC 2 (0-5) /hpf Ur Squamous Epith Cells <1 (0-4) /hpf Urine Mucus Rare H (None) /hpf Salicylates mg/dL Urine Opiates Screen Detected H (NotDetected) Ur Oxycodone Screen Not Detected (NotDetected) Urine Methadone Screen Not Detected (NotDetected) Acetaminophen ug/mL Ur Barbiturates Screen Not Detected (NotDetected) U Tricyclic Antidepress Not Detected (NotDetected) Ur Phencyclidine Scrn Not Detected (NotDetected) Ur Amphetamines Screen Not Detected (NotDetected) U Methamphetamines Scrn Not Detected (NotDetected) U Benzodiazepines Scrn Detected H (NotDetected) Urine Cocaine Screen Not Detected (NotDetected) U Marijuana (THC) Screen Detected H (NotDetected) Serum Alcohol mg/dL Influenza Type A (PCR) Not Detected (Not Detectd) Influenza Type B (PCR) Not Detected (Not Detectd) RSV (PCR) Not Detected (Not Detectd) SARS-CoV-2 (PCR) Not Detected (Not Detectd) Disposition Clinical Impression: Encephalopathy, Elevated troponin, Dehydration, Hypokalemia, Sepsis Disposition: ADMITTED IP TO THIS HOSP Condition: Stable Procedures - Sepsis Sepsis Focused Exam #1 Time Sepsis Criteria Met: 18:43 Sepsis Focused Exam Date: 08/08/24 Sepsis Focused Exam Time: 20:00 Sepsis Focused Exam Complete: Yes Vital Signs & RN Notes Reviewed: Yes Capillary Refill: > 2 Seconds: Fingers, Toes Peripheral Pulses: Normal: Radial (R), Radial (L) Skin Color: Normal for Patient Respiratory Exam: normal lung sounds Cardiovascular Exam: regular rate, normal rhythm
[2024-08-09] MEDS: ONDANSETRON 4 MG/2 ML VIAL IVP PRN (01:17)
[2024-08-09] MEDS: QUEtiapine 50 MG TAB PO STA (02:08)
[2024-08-09 06:52] LABS: Basophils # (A) 0.01 10*3/uL (0.00-0.10); Basophils % (A) 0.1 %; HCT 38.8 % (37.2-46.3); HGB 13.1 g/dL (12.0-15.0); Lymphocytes # (A) 0.61 10*3/uL (0.90-5.00); Lymphocytes % (A) 5.4 %; MCH 29.8 pg (27.0-32.0); MCHC 33.8 g/dL (32.0-37.0); MCV 88.2 fL (80.0-97.0); Mean Platelet Volume 10.6 fL (9.5-12.2); Monocytes # (A) 0.84 10*3/uL (0.20-1.00); Monocytes % (A) 7.4 %; Neutrophils # (A) 9.77 10*3/uL (1.80-7.70); Neutrophils % (A) 86.6 %; Platelet Count 226 10*3/uL (140-440); RDW 19.3 % (11.5-14.5); WBC 11.29 10*3/uL (4.50-10.00)
[2024-08-09 08:25] LABS: ALT 30 U/L (4-34); AST 33 U/L (14-36); African American GFR (CKD) >90 (>60 ml/min/1.73 sqM); Albumin 3.7 g/dL (3.5-5.0); Alkaline Phosphatase 65 U/L (38-126); Anion Gap 4 mmol/L; Blood Urea Nitrogen 11 mg/dL (7-17); Calcium 9.5 mg/dL (8.4-10.2); Carbon Dioxide 28 mmol/L (22-30); Chloride 110 mmol/L (98-107); Glucose 120 mg/dL (74-99); Non-African American GFR(CKD) 87 (>60 ml/min/1.73 sqM); Potassium 3.3 mmol/L (3.5-5.1); Sodium 142 mmol/L (137-145); Total Bilirubin 0.8 mg/dL (0.2-1.3); Total Protein 6.8 g/dL (6.3-8.2)
[2024-08-09] MEDS ORDERED: Potassium Replacement Protocol 1 EACH MISC MISCELLANE PRN (08:46)
[2024-08-09] MEDS ORDERED: ONDANSETRON ODT 8 MG TAB.RAPDIS PO PRN (08:58)
--- NOTE | 2024-08-09 09:03 | P.HPIM ---
History of Present Illness H&P Date: 08/09/24 Chief Complaint: Altered mental status This is a history and physical 69-year-old white female with known history of metastatic renal cancer. She came in with significant disorientation. Workup shows possible sepsis of unknown origin. She is now admitted for appropriate e valuation. She is seen this morning slowly becoming more communicative and oriented. She states she is quite thirsty. Underlying history hypertension. No fever or chills stated but the patient does not recall events from yesterday. No significant diarrhea stated. Allergies to NSAIDs and sulfa. Review of Systems ROS unobtainable: due to mental status Past Medical History Past Medical History: Cancer, Chest Pain / Angina, Heart Failure, GERD/Reflux, Hyperlipidemia, Hypertension, Myocardial Infarction ([place]), Pneumonia, Sleep Apnea/CPAP/BIPAP, Thyroid Disorder Additional Past Medical History / Comment(s): "electrical heart attack", PUD, hypothyroid, low back pain, rib fx, diverticulosis dx/benign polyp, Renal/Bone Ca Last Myocardial Infarction Date:: 2012 History of Any Multi-Drug Resistant Organisms: None Reported Past Surgical History: Back Surgery, Heart Catheterization, Orthopedic Surgery, Tonsillectomy, Tubal Ligation Additional Past Surgical History / Comment(s): 2012 cardiac cath-normal x2, 01/11/17 colonoscopy/benign polypectomy, ORIF LT FT, back x2, "lt NEPHRECTOMY d/t cancer". 09/30-heart cath-clear. dehiscence of incision with kidney surgery trigger finger repair rt hand Past Anesthesia/Blood Transfusion Reactions: Postoperative Nausea & Vomiting (PONV) Additional Past Anesthesia/Blood Transfusion Reaction / Comment(s): no hx blood transfusion. Anesthesia: elevation in blood pressure, aspirated after a surgery at [facility]; Pt does not want propofol Past Psychological History: Anxiety, Depression Additional Psychological History / Comment(s): and lives with the . Does not work outside of the home. Has pet dogs at home Smoking Status: Former smoker Past Alcohol Use History: None Reported Additional Past Alcohol Use History / Comment(s): Pt started smoking in 1971 smo ked <1 ppd and quit may 2017 Past Drug Use History: Marijuana - Past Family History Mother Family Medical History: Hyperlipidemia Additional Family Medical History / Comment(s): Mother was healthy and lived to be 92 yrs. old. alcohol abuse Father History Unknown: Yes Family Medical History: Chest Pain / Angina Medications and Allergies Home Medications Medication Instructions Recorded Confirmed Type ALPRAZolam [Xanax] 0.5 mg PO TID 07/08/17 08/08/24 History Atorvastatin [Lipitor] 40 mg PO DAILY 09/23/20 08/08/24 History Levothyroxine Sodium 137 mcg PO [id number] 09/23/20 08/08/24 History Apixaban [Eliquis] 5 mg PO BID 09/01/22 08/08/24 History Fesoterodine Fumarate 8 mg PO DAILY 09/28/23 08/08/24 History [Fesoterodine Fumarate ER] Isosorbide Mononitrate ER [Imdur] 30 mg PO DAILY 09/28/23 08/08/24 History Metoprolol Succinate (ER) [Toprol 25 mg PO DAILY 09/28/23 08/08/24 History XL] Ergocalciferol [Vitamin D2 (1250 1,250 mcg PO Q14D 04/10/24 08/08/24 History Mcg = 11659 Iu)] Escitalopram [Lexapro] 10 mg PO DAILY 08/08/24 08/08/24 History Ipilimumab [Yervoy] 1 dose IV Q21D 08/08/24 08/08/24 History Losartan [Cozaar] 25 mg PO DAILY 08/08/24 08/08/24 History Morphine Sulfate Ir [MSIR] 15 mg PO Q6H PRN 08/08/24 08/08/24 History Nivolumab [Opdivo] 1 dose IV Q21D 08/08/24 08/08/24 History Omeprazole [PriLOSEC] 20 mg PO DAILY 08/08/24 08/08/24 History Ondansetron Odt [Zofran Odt] 8 mg PO Q8HR PRN 08/08/24 08/08/24 History Allergies Allergy/AdvReac Type Severity Reaction Status Date / Time Sulfa (Sulfonamide Allergy Rash/Hives Verified 08/08/24 17:43 Antibiotics) NSAIDS (Non-Steroidal AdvReac NO NSAIDS Verified 08/08/24 17:43 Anti-Inflamma DUE TO ONLY 1 KIDNEY Physical Exam Vitals: Vital Signs Temp Pulse Pulse Resp BP BP Pulse Ox 08/09/24 04:20 97.8 F 85 24 135/78 99 08/08/24 23:13 98.5 F 69 22 166/97 97 08/08/24 22:00 80 18 149/74 95 08/08/24 20:00 64 18 120/69 91 L 08/08/24 19:32 83 19 97 08/08/24 18:12 95 20 167/76 95 08/08/24 17:37 98.5 F 08/08/24 16:42 99.7 F H 108 H 26 H 177/122 98 Intake and Output 08/08/24 08/09/24 08/09/24 22:59 06:59 14:59 Other: Voiding Method Diaper Diaper Incontinent Incontinent # Voids 0 # Bowel Movements 0 Weight 77.111 kg 77.111 kg - Constitutional General appearance: no acute distress - EENT Eyes: EOMI - Neck Neck: no lymphadenopathy - Respiratory Respiratory: bilateral: diminished - Cardiovascular Rhythm: regular Heart sounds: normal: S1, S2 Abnormal Heart Sounds: no S3 Gallop - Gastrointestinal General gastrointestinal: soft, no tenderness Results CBC & Chem 7: 08/09/24 06:03 08/09/24 07:52 Labs: Abnormal Lab Results - Last 24 Hours (Table) 08/08/24 08/08/24 08/08/24 Range/Units 17:17 17:18 17:27 WBC 15.23 H (4.50-10.00) 10*3/uL MPV 9.3 L (9.5-12.2) fL Immature Gran # 0.14 H (0.00-0.04) 10*3/uL Neutrophils # 12.94 H (1.80-7.70) 10*3/uL Lymphocytes # (0.90-5.00) 10*3/uL Monocytes # 1.19 H (0.20-1.00) 10*3/uL Eosinophils # 0.00 L (0.04-0.35) 10*3/uL APTT (22.0-30.0) sec VBG pH 7.59 H (7.31-7.41) VBG pCO2 23 L (37-51) mmHg VBG HCO3 22 L (24-28) mmol/L Sodium 136 L (137-145) mmol/L Potassium 3.2 L (3.5-5.1) mmol/L Chloride (98-107) mmol/L Carbon Dioxide 19 L (22-30) mmol/L BUN 19 H (7-17) mg/dL Glucose 139 H (74-99) mg/dL Plasma Lactic Acid Yg (0.7-2.0) mmol/L AST 44 H (14-36) U/L ALT 40 H (4-34) U/L Troponin I (0.000-0.034) ng/mL Urine Protein (Negative) Urine Blood (Negative) Urine RBC (0-5) /hpf Urine Mucus (None) /hpf Urine Opiates Screen (NotDetected) U Benzodiazepines Scrn (NotDetected) U Marijuana (THC) Screen (NotDetected) 08/08/24 08/08/24 08/08/24 Range/Units 17:27 17:27 17:27 WBC (4.50-10.00) 10*3/uL MPV (9.5-12.2) fL Immature Gran # (0.00-0.04) 10*3/uL Neutrophils # (1.80-7.70) 10*3/uL Lymphocytes # (0.90-5.00) 10*3/uL Monocytes # (0.20-1.00) 10*3/uL Eosinophils # (0.04-0.35) 10*3/uL APTT 21.5 L (22.0-30.0) sec VBG pH (7.31-7.41) VBG pCO2 (37-51) mmHg VBG HCO3 (24-28) mmol/L Sodium (137-145) mmol/L Potassium (3.5-5.1) mmol/L Chloride (98-107) mmol/L Carbon Dioxide (22-30) mmol/L BUN (7-17) mg/dL Glucose (74-99) mg/dL Plasma Lactic Acid Yg 5.1 H* (0.7-2.0) mmol/L AST (14-36) U/L ALT (4-34) U/L Troponin I 0.108 H* (0.000-0.034) ng/mL Urine Protein (Negative) Urine Blood (Negative) Urine RBC (0-5) /hpf Urine Mucus (None) /hpf Urine Opiates Screen (NotDetected) U Benzodiazepines Scrn (NotDetected) U Marijuana (THC) Screen (NotDetected) 0608/08/24 08/09/24 Range/Units 17:46 20:27 00:09 WBC (4.50-10.00) 10*3/uL MPV (9.5-12.2) fL Immature Gran # (0.00-0.04) 10*3/uL Neutrophils # (1.80-7.70) 10*3/uL Lymphocytes # (0.90-5.00) 10*3/uL Monocytes # (0.20-1.00) 10*3/uL Eosinophils # (0.04-0.35) 10*3/uL APTT (22.0-30.0) sec VBG pH (7.31-7.41) VBG pCO2 (37-51) mmHg VBG HCO3 (24-28) mmol/L Sodium (137-145) mmol/L Potassium (3.5-5.1) mmol/L Chloride (98-107) mmol/L Carbon Dioxide (22-30) mmol/L BUN (7-17) mg/dL Glucose (74-99) mg/dL Plasma Lactic Acid Yg (0.7-2.0) mmol/L AST (14-36) U/L ALT (4-34) U/L Troponin I 0.113 H* 0.095 H* (0.000-0.034) ng/mL Urine Protein 1+ H (Negative) Urine Blood Moderate H (Negative) Urine RBC 17 H (0-5) /hpf Urine Mucus Rare H (None) /hpf Urine Opiates Screen Detected H (NotDetected) U Benzodiazepines Scrn Detected H (NotDetected) U Marijuana (THC) Screen Detected H (NotDetected) 08/09/24 08/09/24 Range/Units 06:03 07:52 WBC 11.29 H (4.50-10.00) 10*3/uL MPV (9.5-12.2) fL Immature Gran # 0.06 H (0.00-0.04) 10*3/uL Neutrophils # 9.77 H (1.80-7.70) 10*3/uL Lymphocytes # 0.61 L (0.90-5.00) 10*3/uL Monocytes # (0.20-1.00) 10*3/uL Eosinophils # 0.00 L (0.04-0.35) 10*3/uL APTT (22.0-30.0) sec VBG pH (7.31-7.41) VBG pCO2 (37-51) mmHg VBG HCO3 (24-28) mmol/L Sodium (137-145) mmol/L Potassium 3.3 L (3.5-5.1) mmol/L Chloride 110 H (98-107) mmol/L Carbon Dioxide (22-30) mmol/L BUN (7-17) mg/dL Glucose 120 H (74-99) mg/dL Plasma Lactic Acid Yg (0.7-2.0) mmol/L AST (14-36) U/L ALT (4-34) U/L Troponin I (0.000-0.034) ng/mL Urine Protein (Negative) Urine Blood (Negative) Urine RBC (0-5) /hpf Urine Mucus (None) /hpf Urine Opiates Screen (NotDetected) U Benzodiazepines Scrn (NotDetected) U Marijuana (THC) Screen (NotDetected) Thrombosis Risk Factor Assmnt - Choose All That Apply Each Factor Represents 1 point: Medical pt on bed rest, Obesity (BMI >25) Each Risk Factor Represents 2 Points: Age 61-74 years, Patient confined to bed Thrombosis Risk Factor Assessment Total Risk Factor Score: 6 Thrombosis Risk Factor Assessment Level: High Risk Assessment and Plan (1) Dehydration Current Visit: Yes Status: Acute Code(s): E86.0 - DEHYDRATION SNOMED Code(s): 72021728 (2) Elevated troponin Current Visit: Yes Status: Acute Code(s): R79.89 - OTHER SPECIFIED ABNORMAL FINDINGS OF BLOOD CHEMISTRY SNOMED Code(s): 728995875 (3) Encephalopathy Current Visit: Yes Status: Acute Code(s): G93.40 - ENCEPHALOPATHY, UNSPECIFIED SNOMED Code(s): 25719948 (4) Hypokalemia Current Visit: Yes Status: Acute Code(s): E87.6 - HYPOKALEMIA SNOMED Code(s): 71404049 (5) Sepsis Current Visit: Yes Status: Acute Code(s): A41.9 - SEPSIS, UNSPECIFIED ORGANISM SNOMED Code(s): 93722933 (6) Acute kidney injury Current Visit: No Status: Acute Code(s): N17.9 - ACUTE KIDNEY FAILURE, UNSPECIFIED SNOMED Code(s): 65189926 (7) History of renal carcinoma Current Visit: No Status: Acute Code(s): Z85.528 - PERSONAL HISTORY OF OTHER MALIGNANT NEOPLASM OF KIDNEY SNOMED Code(s): 26629833982655 Plan: Restart home medications. Watch blood pressure and hydration. Neurology oncology and cardiology has been consulted. Check CBC and CMP in AM. Prognosis is improving given her encephalopathy is clinically improved. The patient is a full code otherwise. Time with Patient: Greater than 30
[2024-08-09] MEDS: VANCOMYCIN 1,250 MG in SODIUM CHLORIDE 0.9% 250 ML IVPB SCH (09:51)
[2024-08-09] MEDS: PANTOPRAZOLE 40 MG TABLET PO SCH (09:52)
[2024-08-09] MEDS: LOSARTAN 25 MG TAB PO SCH (09:52)
[2024-08-09] MEDS: METOPROLOL SUCCINATE (ER) 25 MG TAB.ER.24H PO SCH (09:52)
[2024-08-09] MEDS: ISOSORBIDE MONONITRATE ER 30 MG TAB.ER.24H PO SCH (09:52)
[2024-08-09] MEDS: LEVOTHYROXINE 137 MCG TAB PO SCH (09:52)
[2024-08-09] MEDS: APIXABAN 5 MG TAB PO SCH (09:52)
[2024-08-09] MEDS: ATORVASTATIN 40 MG TAB PO SCH (09:52)
[2024-08-09] MEDS: POTASSIUM CHLORIDE ER 20 MEQ TAB.ER PO SCH (09:52)
[2024-08-09] MEDS: TROSPIUM CHLORIDE 20 MG TABLET PO SCH (11:55)
[2024-08-09] MEDS: levETIRAcetam 500 MG TAB PO SCH (14:11)
--- NOTE | 2024-08-09 14:17 | P.CRDCN ---
History of Present Illness Consult date: 08/09/24 Reason for Consult (text): Elevated troponins History of present illness: This is a 69-year-old female patient of Dr. Bright with past medical history of hypertension, dyslipidemia, atrial flutter, renal cell carcinoma. We have been asked to evaluate the patient for elevated troponins. Patient was brought into the hospital due to altered mental status with nausea, vomiting and diarrhea according to the ER notes. According to the patient's son, patient was confused and having falls. She then lost control of her urine and stools. She did not recognize her . Once she arrived to the hospital she was given sedation because she was combative and then she was sleeping all night. Patient states she does not remember what happened. She denies chest pain or chest discomfort. No fever or chills no cough. She denies diarrhea. According to the son, patient had 1 dose of immunotherapy for renal cell carcinoma and developed rash and the next dose was being delayed but she underwent the second transfusion last week. He is also concerned the patient is having some type of seizure activity since she started treatment as has episodes of weakness and her eyes rolled back in her head. She apparently had an episode when the visiting nurse was at the home. She is also status post 6 rounds of radiation therapy. Blood pressure 135/78, heart rate 85, pulse ox 99% on room air. Patient is status post 2 L IV fluid bolus, potassium replacement, IV antibiotics, Ativan, Seroquel and Haldol. Infectious disease, oncology and neurology are on consult. -EKG: Sinus rhythm with no acute ST-T wave changes. -CT chest abdomen pelvis: Fecal balls, correlate for fecal impaction of the rectum. Right renal cyst. Status post left nephrectomy. -CT brain: No acute process. -Laboratory studies: Troponin 0.108, 0.113, 0.095. WBC initially 15.2 now 11.2, hemoglobin 13.1. Venous pH 7.59, pCO2 23, bicarb 22. Potassium 3.3, creatinine 0.72. Urinalysis with moderate amount of blood and RBCs 17, urine drug screen positive for opiates, benzodiazepines and marijuana. Alcohol level less than 10, salicylate Tylenol level within normal limits. Cepheid viral panel not detected. -Home cardiac medications: Eliquis 5 mg twice daily, atorvastatin 40 mg daily, Imdur 30 mg daily, losartan 25 mg daily, metoprolol succinate 25 mg daily. -Cardiac catheterization performed in 2012 revealed normal coronary arteries. -Echocardiogram performed 09/29/2023 at [facility] revealed technically suboptimal study secondary to poor echo windows. Left ventricular size and systolic function are normal. -Lexiscan Cardiolite stress test performed 09/29/2023 at [facility] revealed no reversible ischemia. -3-day event monitor performed 02/2023 revealed sinus rhythm with average heart rate of 90, minimum 66, maximum 132. SVE burden 0.01%. SVT 1 event 3 beats. PVC burden less than 0.1% with 2 total PVCs. Review Of Systems: At the time of my exam: CONSTITUTIONAL: Denies fever or chills. HEENT: Denies blurred vision, vision changes, or eye pain. Denies hemoptysis CARDIOVASCULAR: Denies chest pain. Denies orthopnea. Denies PND. Denies palpitations RESPIRATORY: Denies shortness of breath. GASTROINTESTINAL: Denies abdominal pain. Denies nausea or vomiting. HEMATOLOGIC: Denies bleeding disorders. GENITOURINARY: Denies any blood in urine. SKIN: Denies puritis. Denies rash. Physical examination: Gen: This is 69-year-old female in no acute distress. VS: reviewed HEENT: Head is atraumatic, normocephalic. Pupils equal, round. Sclerae is anicteric. NECK: Supple. No JVD. LUNGS: Clear to auscultation. No wheezes or rhonchi. No intercostal retractions. HEART: Regular rate and rhythm. No murmur. ABDOMEN: Soft No tenderness. EXTREMITIES: No pedal edema. No calf tenderness. NEUROLOGICAL: Patient is awake, alert and oriented x3. Assessment: Elevated troponins, NSTEMI, possibly type II Metabolic encephalopathy Sepsis of unclear etiology Renal cell carcinoma on chemotherapy and radiation therapy Hypertension Dyslipidemia Typical atrial flutter currently in sinus rhythm Plan: Resume patient's home cardiac medications Obtain 2-D echocardiogram and Doppler study to assess cardiac structure and function Further recommendations to follow based upon clinical course Thank you kindly for this consultation. Nurse practitioner note has been reviewed, I agree with documented findings and plan of care. Patient was seen and examined. Past Medical History Past Medical History: Cancer, Chest Pain / Angina, Heart Failure, GERD/Reflux, Hyperlipidemia, Hypertension, Myocardial Infarction ([place]), Pneumonia, Sleep Apnea/CPAP/BIPAP, Thyroid Disorder Additional Past Medical History / Comment(s): "electrical heart attack", PUD, hypothyroid, low back pain, rib fx, diverticulosis dx/benign polyp, Renal/Bone Ca Last Myocardial Infarction Date:: 2012 History of Any Multi-Drug Resistant Organisms: None Reported Past Surgical History: Back Surgery, Heart Catheterization, Orthopedic Surgery, Tonsillectomy, Tubal Ligation Additional Past Surgical History / Comment(s): 2012 cardiac cath-normal x2, 01/11/17 colonoscopy/benign polypectomy, ORIF LT FT, back x2, "lt NEPHRECTOMY d/t cancer". 09/30-heart cath-clear. dehiscence of incision with kidney surgery trigger finger repair rt hand Past Anesthesia/Blood Transfusion Reactions: Postoperative Nausea & Vomiting (PONV) Additional Past Anesthesia/Blood Transfusion Reaction / Comment(s): no hx blood transfusion. Anesthesia: elevation in blood pressure, aspirated after a surgery at [facility]; Pt does not want propofol Past Psychological History: Anxiety, Depression Additional Psychological History / Comment(s): and lives with the . Does not work outside of the home. Has pet dogs at home Smoking Status: Former smoker Past Alcohol Use History: None Reported Additional Past Alcohol Use History / Comment(s): Pt started smoking in 1971 smoked <1 ppd and quit may 2017 Past Drug Use History: Marijuana - Past Family History Mother Family Medical History: Hyperlipidemia Additional Family Medical History / Comment(s): Mother was healthy and lived to be 92 yrs. old. alcohol abuse Father History Unknown: Yes Family Medical History: Chest Pain / Angina Medications and Allergies Home Medications Medication Instructions Recorded Confirmed Type ALPRAZolam [Xanax] 0.5 mg PO TID 07/08/17 08/08/24 History Atorvastatin [Lipitor] 40 mg PO DAILY 09/23/20 08/08/24 History Levothyroxine Sodium 137 mcg PO MOTUWETHFRSA 09/23/20 08/08/24 History Apixaban [Eliquis] 5 mg PO BID 09/01/22 08/08/24 History Fesoterodine Fumarate 8 mg PO DAILY 09/28/23 08/08/24 History [Fesoterodine Fumarate ER] Isosorbide Mononitrate ER [Imdur] 30 mg PO DAILY 09/28/23 08/08/24 History Metoprolol Succinate (ER) [Toprol 25 mg PO DAILY 09/28/23 08/08/24 History XL] Ergocalciferol [Vitamin D2 (1250 1,250 mcg PO Q14D 04/10/24 08/08/24 History Mcg = 93097 Iu)] Escitalopram [Lexapro] 10 mg PO DAILY 08/08/24 08/08/24 History Ipilimumab [Yervoy] 1 dose IV Q21D 08/08/24 08/08/24 History Losartan [Cozaar] 25 mg PO DAILY 08/08/24 08/08/24 History Morphine Sulfate Ir [MSIR] 15 mg PO Q6H PRN 08/08/24 08/08/24 History Nivolumab [Opdivo] 1 dose IV Q21D 08/08/24 08/08/24 History Omeprazole [PriLOSEC] 20 mg PO DAILY 08/08/24 08/08/24 History Ondansetron Odt [Zofran Odt] 8 mg PO Q8HR PRN 08/08/24 08/08/24 History Allergies Allergy/AdvReac Type Severity Reaction Status Date / Time Sulfa (Sulfonamide Allergy Rash/Hives Verified 08/08/24 17:43 Antibiotics) NSAIDS (Non-Steroidal AdvReac NO NSAIDS Verified 08/08/24 17:43 Anti-Inflamma DUE TO ONLY 1 KIDNEY Physical Exam Vitals: Vital Signs Temp Pulse Pulse Resp BP BP Pulse Ox 08/09/24 04:20 97.8 F 85 24 135/78 99 08/08/24 23:13 98.5 F 69 22 166/97 97 08/08/24 22:00 80 18 149/74 95 08/08/24 20:00 64 18 120/69 91 L 08/08/24 19:32 83 19 97 08/08/24 18:12 95 20 167/76 95 08/08/24 17:37 98.5 F 08/08/24 16:42 99.7 F H 108 H 26 H 177/122 98 Intake and Output 08/08/24 08/09/24 08/09/24 22:59 06:59 14:59 Other: Voiding Method Diaper Diaper Incontinent Incontinent # Voids 0 # Bowel Movements 0 Weight 77.111 kg 77.111 kg Results 08/09/24 06:03 08/09/24 07:52 Cardiac Enzymes 08/08/24 08/08/24 08/08/24 Range/Units 17:17 17:27 20:27 AST 44 H (14-36) U/L Troponin I 0.108 H* 0.113 H* (0.000-0.034) ng/mL 08/09/24 08/09/24 Range/Units 00:09 07:52 AST 33 (14-36) U/L Troponin I 0.095 H* (0.000-0.034) ng/mL Coagulation 08/08/24 Range/Units 17:27 PT 11.1 (10.0-12.5) sec APTT 21.5 L (22.0-30.0) sec CBC 08/08/24 08/09/24 Range/Units 17: 06:03 WBC 15.23 H 11.29 H (4.50-10.00) 10*3/uL RBC 4.88 4.40 (4.10-5.20) 10*6/uL Hgb 14.5 13.1 (12.0-15.0) g/dL Hct 41.4 38.8 (37.2-46.3) % Plt Count 284 226 (140-440) 10*3/uL Comprehensive Metabolic Panel 08/08/24 08/09/24 Range/Units 17:17 07:52 Sodium 136 L 142 (137-145) mmol/L Potassium 3.2 L 3.3 L (3.5-5.1) mmol/L Chloride 98 110 H (98-107) mmol/L Carbon Dioxide 19 L 28 (22-30) mmol/L BUN 19 H 11 (7-17) mg/dL Creatinine 0.79 0.72 (0.52-1.04) mg/dL Glucose 139 H 120 H (74-99) mg/dL Calcium 10.2 9.5 (8.4-10.2) mg/dL AST 44 H 33 (14-36) U/L ALT 40 H 30 (4-34) U/L Alkaline Phosphatase 83 65 (38-126) U/L Total Protein 8.0 6.8 (6.3-8.2) g/dL Albumin 4.6 3.7 (3.5-5.0) g/dL Current Medications Generic Name Dose Route Start Last Admin Trade Name Freq PRN Reason Stop Dose Admin Acetaminophen 650 mg 08/08/24 19:36 Acetaminophen Tab 325 Mg Tab PO Q6HR PRN Mild Pain or Fever > 100.5 Apixaban 5 mg 08/09/24 09:00 Apixaban 5 Mg Tab PO BID [facility] Protocol Atorvastatin Calcium 40 mg 08/09/24 09:00 Atorvastatin 40 Mg Tab PO DAILY [facility] Ergocalciferol 1,250 mcg 08/09/24 09:00 Ergocalciferol 1,250 Mcg (50,000 Iu) Capsule PO Q14D [facility]AC Cefepime HCl 2 gm/ Sodium 100 mls @ 25 mls/hr 08/08/24 19:00 08/09/24 04:32 Chloride IVPB 25 mls/hr Q8H ZAC Administration Protocol Lactated Ringer's 1,000 mls @ 130 mls/hr 08/08/24 18:45 08/09/24 04:33 Lactated Ringers IV 130 mls/hr .Q7H42M ZAC Administration Vancomycin HCl 1,250 mg/ 250 mls @ 125 mls/hr 08/09/24 08:00 Sodium Chloride IVPB Q12H [facility] Isosorbide Mononitrate 30 mg 08/09/24 09:00 Isosorbide Mononitrate Er 30 Mg Tab.Er.24h PO DAILY [facility] Levothyroxine Sodium 137 mcg 08/09/24 09:00 Levothyroxine 137 Mcg Tab PO MOTUWETHFRSA [facility] Losartan Potassium 25 mg 08/09/24 09:00 Losartan 25 Mg Tab PO DAILY [facility] Metoprolol Succinate 25 mg 08/09/24 09:00 Metoprolol Succinate (Er) 25 Mg Tab.Er.24h PO DAILY [facility] Miscellaneous Information 1 each 08/09/24 08:46 Potassium Replacement Protocol 1 Each Misc MISCELLANE DAILY PRN Per Protocol Protocol Naloxone HCl 0.2 mg 08/08/24 19:36 Naloxone 0.4 Mg/Ml 1 Ml Vial IV Q2M PRN Opioid Reversal Non-Formulary Medication 8 mg 08/09/24 09:00 Fesoterodine Fumarate [Fesoterodine Fumarate Er] PO DAILY [facility] Non-Formulary Medication 20 mg 08/09/24 09:00 Omeprazole PO DAILY [facility] Ondansetron HCl 4 mg 08/08/24 19:36 08/09/24 01:17 Ondansetron 4 Mg/2 Ml Vial IVP 4 mg Q8HR PRN Administration Nausea And Vomiting Ondansetron HCl 8 mg 08/09/24 08:58 Ondansetron Odt 8 Mg Tab.Rapdis PO Q8HR PRN Nausea Potassium Chloride 20 meq 08/09/24 09:00 Potassium Chloride Er 20 Meq Tab.Er PO 08/09/24 10:01 Q1HR [facility] Protocol Intake and Output 08/08/24 08/09/24 08/09/24 22:59 06:59 14:59 Other: Voiding Method Diaper Diaper Incontinent Incontinent # Voids 0 # Bowel Movements 0 Weight 77.111 kg 77.111 kg 08/09/24 06:03 08/09/24 07:52
--- NOTE | 2024-08-09 16:07 | P.CNNES ---
History of Present Illness Consult date: 08/09/24 Requesting physician: Basilio Rao Reason for Consult: encephalopathy History of Present Illness: This is a 69-year-old woman who presents emergency department because of confusion. History is obtained predominantly from the who is at bedside. He stated that the night before come to the hospital she went to sleep but before going to sleep she notified her that she was not feeling well and that was 8:00 at nighttime. Then at 9 9:30 PM went to check up on her and he noticed that she was sweating and started the fan on her and he changed her shirt. The next day which was yesterday she was post to have an appoint with Dr. Mcdonnell at 1 PM but she was breathing fast and continues to be s weaty and sleepy. As a result appointment with her primary care physician was canceled. Then by 1 1:30 PM she got up and she slid when she was getting out of bed slowly but did not have any head trauma. Initially she did not have any jerking of any extremities. Then later he noticed that she had urine incontinence when the bed was wet. He also noticed later that her eyes rolled back she was not responsive and she had shaking of her face as well as her upper extremities lasting for a minute. Per the , she had 2 other similar episodes that was witnessed by the caregiver in the past open the caregiver checks her blood pressure at all over the place according to the .. She does not have any official history of diagnosis. She does have a history of kidney cancer s/p resection and that was about 7 years ago. Then she was in remission but seems that she had further cancer recently that was noticed in the right hip femur and had surgical correction and that she is getting chemotherapy and is following up with oncology as an outpatient. Pending chemotherapy. She already received 2 weeks of radiation therapy. Some of the workup during this hospital visit consisted of: He had low-grade fever on presentation of 99.7 Fahrenheit and after that no further fevers. White Blood cell is 15,000 and repeated 11,000. Plasma lactic vein is 5.1 and repeated is normal. Troponin is high as 0.113 I reviewed the rest of lab work-up. CT of the head is reported as no acute intracranial process. I personally reviewed the CT and agree with the report Review of Systems As per HPI. Past Medical History Past Medical History: Cancer, Chest Pain / Angina, Heart Failure, GERD/Reflux, Hyperlipidemia, Hypertension, Myocardial Infarction ([place]), Pneumonia, Sleep Apnea/CPAP/BIPAP, Thyroid Disorder Additional Past Medical History / Comment(s): "electrical heart attack", PUD, hypothyroid, low back pain, rib fx, diverticulosis dx/benign polyp, Renal/Bone Ca Last Myocardial Infarction Date:: 2012 History of Any Multi-Drug Resistant Organisms: None Reported Past Surgical History: Back Surgery, Heart Catheterization, Orthopedic Surgery, Tonsillectomy, Tubal Ligation Additional Past Surgical History / Comment(s): 2012 cardiac cath-normal x2, 01/11/17 colonoscopy/benign polypectomy, ORIF LT FT, back x2, "lt NEPHRECTOMY d/t cancer". 09/30-heart cath-clear. dehiscence of incision with kidney surgery trigger finger repair rt hand Past Anesthesia/Blood Transfusion Reactions: Postoperative Nausea & Vomiting (PONV) Additional Past Anesthesia/Blood Transfusion Reaction / Comment(s): no hx blood transfusion. Anesthesia: elevation in blood pressure, aspirated after a surgery at [facility]; Pt does not want propofol Past Psychological History: Anxiety, Depression Additional Psychological History / Comment(s): and lives with the . Does not work outside of the home. Has pet dogs at home Smoking Status: Former smoker Past Alcohol Use History: None Reported Additional Past Alcohol Use History / Comment(s): Pt started smoking in 1971 smoked <1 ppd and quit may 2017 Past Drug Use History: Marijuana - Past Family History Mother Family Medical History: Hyperlipidemia Additional Family Medical History / Comment(s): Mother was healthy and lived to be 92 yrs. old. alcohol abuse Father History Unknown: Yes Family Medical History: Chest Pain / Angina Medications and Allergies Home Medications Medication Instructions Recorded Confirmed Type ALPRAZolam [Xanax] 0.5 mg PO TID 07/08/17 08/08/24 History Atorvastatin [Lipitor] 40 mg PO DAILY 09/23/20 08/08/24 History Levothyroxine Sodium 137 mcg PO MOTUWETHFRSA 09/23/20 08/08/24 History Apixaban [Eliquis] 5 mg PO BID 09/01/22 08/08/24 History Fesoterodine Fumarate 8 mg PO DAILY 09/28/23 08/08/24 History [Fesoterodine Fumarate ER] Isosorbide Mononitrate ER [Imdur] 30 mg PO DAILY 09/28/23 08/08/24 History Metoprolol Succinate (ER) [Toprol 25 mg PO DAILY 09/28/23 08/08/24 History XL] Ergocalciferol [Vitamin D2 (1250 1,250 mcg PO Q14D 04/10/24 08/08/24 History Mcg = 41226 Iu)] Escitalopram [Lexapro] 10 mg PO DAILY 08/08/24 08/08/24 History Ipilimumab [Yervoy] 1 dose IV Q21D 08/08/24 08/08/24 History Losartan [Cozaar] 25 mg PO DAILY 08/08/24 08/08/24 History Morphine Sulfate Ir [MSIR] 15 mg PO Q6H PRN 08/08/24 08/08/24 History Nivolumab [Opdivo] 1 dose IV Q21D 08/08/24 08/08/24 History Omeprazole [PriLOSEC] 20 mg PO DAILY 08/08/24 08/08/24 History Ondansetron Odt [Zofran Odt] 8 mg PO Q8HR PRN 08/08/24 08/08/24 History Allergies Allergy/AdvReac Type Severity Reaction Status Date / Time Sulfa (Sulfonamide Allergy Rash/Hives Verified 08/08/24 17:43 Antibiotics) NSAIDS (Non-Steroidal AdvReac NO NSAIDS Verified 08/08/24 17:43 Anti-Inflamma DUE TO ONLY 1 KIDNEY Physical Examination - Vital Signs Vital Signs: Vital Signs Temp Pulse Pulse Resp BP BP Pulse Ox 08/09/24 11:57 99 F 86 22 161/94 96 08/09/24 08:00 98 F 89 22 144/76 99 08/09/24 04:20 97.8 F 85 24 135/78 99 08/08/24 23:13 98.5 F 69 22 166/97 97 08/08/24 22:00 80 18 149/74 95 08/08/24 20:00 64 18 120/69 91 L 08/08/24 19:32 83 19 97 08/08/24 18:12 95 20 167/76 95 08/08/24 17:37 98.5 F 08/08/24 16:42 99.7 F H 108 H 26 H 177/122 98 Intake and Output 08/09/24 08/09/24 08/09/24 06:59 14:59 22:59 Intake Total 0 Balance 0 Intake: Oral 0 Other: Voiding Method Diaper Diaper Incontinent Incontinent # Voids 0 1 # Bowel Movements 0 1 Weight 77.111 kg GENERAL: The patient is lying in bed and is not in acute distress. HENT: Supple neck. NEUROLOGICAL: Limited since somewhat sleepy. Higher mental function: The patient is oriented to self, place and time. Patient is following commands. No aphasia and no neglect. Cranial nerves: The pupils are round, equal and reactive to light. Visual walter are full to confrontation throughout. Extraocular movement is intact no nystagmus is noted. Facial sensation is normal to touch throughout. The facial strength is normal throughout. Hearing is normal bilaterally to hand rub. Tongue is midline and moved [id number] without any difficulty. There is evidence of a tongue bite on the tip. No dysarthria is noted. Shoulder shrug is normal bilaterally. Motor: The strength is limited in assessment individual muscle strength because of overall cooperation but is lifting all extremities above gravity equally. Normal tone and bulk. Cerebellum: Normal finger to nose bilaterally. Sensation: Sensation is normal to touch throughout. Reflexes (right/left): Limited because of coopeation. Plantars are downgoing bilaterally. Results - Laboratory Findings CBC and BMP: 08/09/24 06:03 08/09/24 07:52 Abnormal Lab Findings: Abnormal Labs 08/08/24 08/08/24 08/08/24 17:17 17:18 17:27 WBC 15.23 H MPV 9.3 L Immature Gran # 0.14 H Neutrophils # 12.94 H Lymphocytes # Monocytes # 1.19 H Eosinophils # 0.00 L APTT VBG pH 7.59 H VBG pCO2 23 L VBG HCO3 22 L Sodium 136 L Potassium 3.2 L Chloride Carbon Dioxide 19 L BUN 19 H Glucose 139 H Plasma Lactic Acid Yg AST 44 H ALT 40 H Troponin I Urine Protein Urine Blood Urine RBC Urine Mucus Urine Opiates Screen U Benzodiazepines Scrn U Marijuana (THC) Screen 08/08/24 08/08/24 08/08/24 17:27 17:27 17:27 WBC MPV Immature Gran # Neutrophils # Lymphocytes # Monocytes # Eosinophils # APTT 21.5 L VBG pH VBG pCO2 VBG HCO3 Sodium Potassium Chloride Carbon Dioxide BUN Glucose Plasma Lactic Acid Yg 5.1 H* AST ALT Troponin I 0.108 H* Urine Protein Urine Blood Urine RBC Urine Mucus Urine Opiates Screen U Benzodiazepines Scrn U Marijuana (THC) Screen 08/08/24 08/08/24 08/09/24 17:46 20:27 00:09 WBC MPV Immature Gran # Neutrophils # Lymphocytes # Monocytes # Eosinophils # APTT VBG pH VBG pCO2 VBG HCO3 Sodium Potassium Chloride Carbon Dioxide BUN Glucose Plasma Lactic Acid Yg AST ALT Troponin I 0.113 H* 0.095 H* Urine Protein 1+ H Urine Blood Moderate H Urine RBC 17 H Urine Mucus Rare H Urine Opiates Screen Detected H U Benzodiazepines Scrn Detected H U Marijuana (THC) Screen Detected H 08/09/24 08/09/24 06:03 07:52 WBC 11.29 H MPV Immature Gran # 0.06 H Neutrophils # 9.77 H Lymphocytes # 0.61 L Monocytes # Eosinophils # 0.00 L APTT VBG pH VBG pCO2 VBG HCO3 Sodium Potassium 3.3 L Chloride 110 H Carbon Dioxide BUN Glucose 120 H Plasma Lactic Acid Yg AST ALT Troponin I Urine Protein Urine Blood Urine RBC Urine Mucus Urine Opiates Screen U Benzodiazepines Scrn U Marijuana (THC) Screen Assessment and Plan Assessment: This is a 69-year-old woman with history of metastatic renal cancer who received 2 weeks of radiation therapy and is getting chemotherapy who presents to the emergency department because of altered mental status. It seems at home she had episode where eyes rolling back shaking of upper extremity with urinary incontinence. The she had 2 similar episodes in the past witnessed by the caregiver and during these episodes her blood pressure is brittle Likely new onset seizure Leukocytosis and low-grade fever--no further fevers. Leukocytosis is trending down. Unknown exact etiology. Unsure if it is reactive due to the seizures Slightly elevated troponin Metastatic renal cancer and received 2 weeks of radiation therapy and is getting chemotherapy and she has not completed the entire chemotherapy regimen yet Plan: I started the patient on Keppra 500 mg twice a day and I notified the patient and her that it can cause mood/behavioral issues and if he does not develop those discontinue Keppra and consider Vimpat 50 mg twice daily I ordered routine EEG With the [facility] because of seizures, avoid driving for 6 months until seizure-free, avoid heights, avoid swimming assisted or using heavy machinery I ordered MRI of the brain with and without to rule out any brain mets I consulted ID attending Primary team started the patient on vancomycin, cefepime. I will defer modification of the medication to primary and ID team If unknown cause of her leukocytosis and continues to have fever then recommend pursuing with lumbar puncture. Oncology is consulted Cardiology team is consulted Defer the rest of the medical management department other specialist The plan is discussed with patient and her who is at bedside as well her nurse. Thank you for the consultation. Time with Patient: Greater than 30
--- NOTE | 2024-08-09 16:32 | MR ---
EXAMINATION TYPE: MR brain wo/w con DATE OF EXAM: 08/09/2024 4:16 PM COMPARISON: 05/10/2024 , CT brain 08/08/2024 CLINICAL INDICATION: Female, 69 years old with history of seizure. r/o brain mets, Seizure, r/o Brai n mets TECHNIQUE: Multiplanar, multiecho imaging on a 3.0 Vicki magnet is performed through the brain. Stud y is performed within 24 hours of arrival to the hospital.Multiplanar, multiecho imaging on a 3.0 Jenny la magnet is performed through the knee. IV Contrast: 7.5 mL Gadobutrol (None, if empty) FINDINGS: The craniovertebral junction is normal. The pituitary is normal. Diffusion-weighted imaging is performed. No abnormal hyperintensity is present to suggest an acute i ntracranial infarct or acute ischemic change. There is increased signal within the posterior occipital region white matter bilaterally. This is an interval change. No suspicious enhancement is evident within the occipital regions or elsewhere within the brain. Ventricles and sulci are appropriate for the patient age. IMPRESSION: 1. Increased signal within the posterior occipital lobes bilaterally. No underlying enhancement is ev ident. Findings are nonspecific. Findings could be related to early metastasis. Hypertensive changes can affect this region. White matter ischemic change is less likely given the focal distribution. [facility], , 08/09/2024 4:29 PM
--- NOTE | 2024-08-09 20:41 | P.CONS ---
History of Present Illness - Reason for Consult Consult date: 08/09/24 Leukocytosis with low-grade fever Requesting physician: Jasvir Weeks - Chief Complaint Mental status changes weakness x 1 day - History of Present Illness Patient is a 69-year-old female past medical history significant for Heart Failure, GERD/Reflux, Hyperlipidemia, Hypertension, Myocardial Infarction (OR), Pneumonia, Sleep Apnea/CPAP/BIPAP, Thyroid Disorder, renal cancer presenting to the hospital for evaluation of mental status changes nausea vomiting, patient's symptoms started during the day of presentation to the hospital patient was to be confused not oriented has been complaining of nausea vomiting no diarrhea no denies any headache chest pain shortness of breath or cough abdominal pain on presentation the hospital did have low-grade fever of 99 .7 F patient was not tachycardic hypotensive or hypoxic no need for supplemental oxygen patient did have elevated white blood 15.23 with a left shift creatinine is normal pressure was low lactic acid normal levels is mildly elevated troponin positive urine was negative urine drug screen was positive for opiates and benzos and marijuana influenza RSV COVID testing was negative patient did have a CT of the brain that was negative for any bleed did have a CT of the chest abdominal pelvis though done without any oral contrast given no evidence of any pneumonia or lung nodules CT of the abdomen issues of fecal balls no change suggest obstruction inferior pole right renal cyst post left nephrectomy patient was started on vancomycin and cefepime infectious disease was consulted for further management of antibiotic therapy patient with abnormal urine is slightly more awake and alert and eventually did have good bowel movement with no diarrhea currently with no abdominal pain and no further vo miting Review of Systems Positive point and negatives has been mentioned in the HPI, complete review of systems was performed and all other systems are negative Past Medical History Past Medical History: Cancer, Chest Pain / Angina, Heart Failure, GERD/Reflux, Hyperlipidemia, Hypertension, Myocardial Infarction (OR), Pneumonia, Sleep Apnea/CPAP/BIPAP, Thyroid Disorder Additional Past Medical History / Comment(s): "electrical heart attack", PUD, hypothyroid, low back pain, rib fx, diverticulosis dx/benign polyp, Renal/Bone Ca Last Myocardial Infarction Date:: 2012 History of Any Multi-Drug Resistant Organisms: None Reported Past Surgical History: Back Surgery, Heart Catheterization, Orthopedic Surgery, Tonsillectomy, Tubal Ligation Additional Past Surgical History / Comment(s): 2012 cardiac cath-normal x2, 01/11/17 colonoscopy/benign polypectomy, ORIF LT FT, back x2, "lt NEPHRECTOMY d/t cancer". 09/30-heart cath-clear. dehiscence of incision with kidney surgery trigger finger repair rt hand Past Anesthesia/Blood Transfusion Reactions: Postoperative Nausea & Vomiting (PONV) Additional Past Anesthesia/Blood Transfusion Reaction / Comm: no hx blood transfusion. Anesthesia: elevation in blood pressure, aspirated after a surgery at [facility]; Pt does not want propofol Past Psychological History: Anxiety, Depression Additional Psychological History / Comment(s): and lives with the [place] Does not work outside of the home. Has pet dogs at home Smoking Status: Former smoker Past Alcohol Use History: None Reported Additional Past Alcohol Use History / Comment(s): Pt started smoking in 1971 smoked <1 ppd and quit may 2017 Past Drug Use History: Marijuana - Past Family History Mother Family Medical History: Hyperlipidemia Additional Family Medical History / Comment(s): Mother was healthy and lived to be 92 yrs. old. alcohol abuse Father History Unknown: Yes Family Medical History: Chest Pain / Angina Medications and Allergies Home Medications Medication Instructions Recorded Confirmed Type ALPRAZolam [Xanax] 0.5 mg PO TID 07/08/17 08/08/24 History Atorvastatin [Lipitor] 40 mg PO DAILY 09/23/20 08/08/24 History Levothyroxine Sodium 137 mcg PO MOTUWETHFRSA 09/23/20 08/08/24 History Apixaban [Eliquis] 5 mg PO BID 09/01/22 08/08/24 History Fesoterodine Fumarate 8 mg PO DAILY 09/28/23 08/08/24 History [Fesoterodine Fumarate ER] Isosorbide Mononitrate ER [Imdur] 30 mg PO DAILY 09/28/23 08/08/24 History Metoprolol Succinate (ER) [Toprol 25 mg PO DAILY 09/28/23 08/08/24 History XL] Ergocalciferol [Vitamin D2 (1250 1,250 mcg PO Q14D 04/10/24 08/08/24 History Mcg = 32588 Iu)] Escitalopram [Lexapro] 10 mg PO DAILY 08/08/24 08/08/24 History Ipilimumab [Yervoy] 1 dose IV Q21D 08/08/24 08/08/24 History Losartan [Cozaar] 25 mg PO DAILY 08/08/24 08/08/24 History Morphine Sulfate Ir [MSIR] 15 mg PO Q6H PRN 08/08/24 08/08/24 History Nivolumab [Opdivo] 1 dose IV Q21D 08/08/24 08/08/24 History Omeprazole [PriLOSEC] 20 mg PO DAILY 08/08/24 08/08/24 History Ondansetron Odt [Zofran Odt] 8 mg PO Q8HR PRN 08/08/24 08/08/24 History Allergies Allergy/AdvReac Type Severity Reaction Status Date / Time Sulfa (Sulfonamide Allergy Rash/Hives Verified 08/08/24 17:43 Antibiotics) NSAIDS (Non-Steroidal AdvReac NO NSAIDS Verified 08/08/24 17:43 Anti-Inflamma DUE TO ONLY 1 KIDNEY Physical Exam Vitals: Vital Signs Temp Pulse Pulse Resp BP BP Pulse Ox 08/09/24 11:57 99 F 86 22 161/94 96 08/09/24 08:00 98 F 89 22 144/76 99 08/09/24 04:20 97.8 F 85 24 135/78 99 08/08/24 23:13 98.5 F 69 22 166/97 97 08/08/24 22:00 80 18 149/74 95 08/08/24 20:00 64 18 120/69 91 L 08/08/24 19:32 83 19 97 08/08/24 18:12 95 20 167/76 95 08/08/24 17:37 98.5 F 08/08/24 16:42 99.7 F H 108 H 26 H 177/122 98 Intake and Output 08/08/24 08/09/24 08/09/24 22:59 06:59 14:59 Other: Voiding Method Diaper Diaper Incontinent Incontinent # Voids 0 1 # Bowel Movements 0 1 Weight 77.111 kg 77.111 kg GENERAL DESCRIPTION: Elderly female lying in bed, no distress. No tachypnea or accessory muscle of respiration use. HEENT: Shows Pallor , no scleral icterus. Oral mucous membrane is dry. NECK: Trachea central, no thyromegaly. LUNGS: Unlabored breathing. Clear to auscultation anteriorly. No wheeze or crackle. HEART: S1, S2, regular rate and rhythm. No loud murmur ABDOMEN: Soft, no tenderness , guarding or rigidity, no organomegaly EXTREMITIES: No edema of feet. SKIN: No rash, no masses palpable. NEUROLOGICAL: The patient is sleepy but arousable, mood and affect normal. Results CBC & Chem 7: 08/09/24 06:03 08/09/24 07:52 Labs: Abnormal Lab Results - Last 24 Hours (Table) 08/08/24 08/08/24 08/08/24 Range/Units 17:17 17:18 17:27 WBC 15.23 H (4.50-10.00) 10*3/uL MPV 9.3 L (9.5-12.2) fL Immature Gran # 0.14 H (0.00-0.04) 10*3/uL Neutrophils # 12.94 H (1.80-7.70) 10*3/uL Lymphocytes # (0.90-5.00) 10*3/uL Monocytes # 1.19 H (0.20-1.00) 10*3/uL Eosinophils # 0.00 L (0.04-0.35) 10*3/uL APTT (22.0-30.0) sec VBG pH 7.59 H (7.31-7.41) VBG pCO2 23 L (37-51) mmHg VBG HCO3 22 L (24-28) mmol/L Sodium 136 L (137-145) mmol/L Potassium 3.2 L (3.5-5.1) mmol/L Chloride (98-107) mmol/L Carbon Dioxide 19 L (22-30) mmol/L BUN 19 H (7-17) mg/dL Glucose 139 H (74-99) mg/dL Plasma Lactic Acid Yg (0.7-2.0) mmol/L AST 44 H (14-36) U/L ALT 40 H (4-34) U/L Troponin I (0.000-0.034) ng/mL Urine Protein (Negative) Urine Blood (Negative) Urine RBC (0-5) /hpf Urine Mucus (None) /hpf Urine Opiates Screen (NotDetected) U Benzodiazepines Scrn (NotDetected) U Marijuana (THC) Screen (NotDetected) 08/08/24 08/08/24 08/08/24 Range/Units 17:27 17:27 17:27 WBC (4.50-10.00) 10*3/uL MPV (9.5-12.2) fL Immature Gran # (0.00-0.04) 10*3/uL Neutrophils # (1.80-7.70) 10*3/uL Lymphocytes # (0.90-5.00) 10*3/uL Monocytes # (0.20-1.00) 10*3/uL Eosinophils # (0.04-0.35) 10*3/uL APTT 21.5 L (22.0-30.0) sec VBG pH (7.31-7.41) VBG pCO2 (37-51) mmHg VBG HCO3 (24-28) mmol/L Sodium (137-145) mmol/L Potassium (3.5-5.1) mmol/L Chloride (98-107) mmol/L Carbon Dioxide (22-30) mmol/L BUN (7-17) mg/dL Glucose (74-99) mg/dL Plasma Lactic Acid Yg 5.1 H* (0.7-2.0) mmol/L AST (14-36) U/L ALT (4-34) U/L Troponin I 0.108 H* (0.000-0.034) ng/mL Urine Protein (Negative) Urine Blood (Negative) Urine RBC (0-5) /hpf Urine Mucus (None) /hpf Urine Opiates Screen (NotDetected) U Benzodiazepines Scrn (NotDetected) U Marijuana (THC) Screen (NotDetected) 08/08/24 08/08/24 08/09/24 Range/Units 17:46 20:27 00:09 WBC (4.50-10.00) 10*3/uL MPV (9.5-12.2) fL Immature Gran # (0.00-0.04) 10*3/uL Neutrophils # (1.80-7.70) 10*3/uL Lymphocytes # (0.90-5.00) 10*3/uL Monocytes # (0.20-1.00) 10*3/uL Eosinophils # (0.04-0.35) 10*3/uL APTT (22.0-30.0) sec VBG pH (7.31-7.41) VBG pCO2 (37-51) mmHg VBG HCO3 (24-28) mmol/L Sodium (137-145) mmol/L Potassium (3.5-5.1) mmol/L Chloride (98-107) mmol/L Carbon Dioxide (22-30) mmol/L BUN (7-17) mg/dL Glucose (74-99) mg/dL Plasma Lactic Acid Yg (0.7-2.0) mmol/L AST (14-36) U/L ALT (4-34) U/L Troponin I 0.113 H* 0.095 H* (0.000-0.034) ng/mL Urine Protein 1+ H (Negative) Urine Blood Moderate H (Negative) Urine RBC 17 H (0-5) /hpf Urine Mucus Rare H (None) /hpf Urine Opiates Screen Detected H (NotDetected) U Benzodiazepines Scrn Detected H (NotDetected) U Marijuana (THC) Screen Detected H (NotDetected) 08/09/24 08/09/24 Range/Units 06:03 07:52 WBC 11.29 H (4.50-10.00) 10*3/uL MPV (9.5-12.2) fL Immature Gran # 0.06 H (0.00-0.04) 10*3/uL Neutrophils # 9.77 H (1.80-7.70) 10*3/uL Lymphocytes # 0.61 L (0.90-5.00) 10*3/uL Monocytes # (0.20-1.00) 10*3/uL Eosinophils # 0.00 L (0.04-0.35) 10*3/uL APTT (22.0-30.0) sec VBG pH (7.31-7.41) VBG pCO2 (37-51) mmHg VBG HCO3 (24-28) mmol/L Sodium (137-145) mmol/L Potassium 3.3 L (3.5-5.1) mmol/L Chloride 110 H (98-107) mmol/L Carbon Dioxide (22-30) mmol/L BUN (7-17) mg/dL Glucose 120 H (74-99) mg/dL Plasma Lactic Acid Yg (0.7-2.0) mmol/L AST (14-36) U/L ALT (4-34) U/L Troponin I (0.000-0.034) ng/mL Urine Protein (Negative) Urine Blood (Negative) Urine RBC (0-5) /hpf Urine Mucus (None) /hpf Urine Opiates Screen (NotDetected) U Benzodiazepines Scrn (NotDetected) U Marijuana (THC) Screen (NotDetected) Assessment and Plan (1) Fever Current Visit: Yes Status: Acute Code(s): R50.9 - FEVER, UNSPECIFIED SNOMED Code(s): 038349418 (2) Leukocytosis Current Visit: No Status: Acute Code(s): D72.829 - ELEVATED WHITE BLOOD CELL COUNT, UNSPECIFIED SNOMED Code(s): 264151874 Plan: 1patient presented to hospital with mental status changes in this patient noticed to have a low-grade fever also have elevated white count initial workup for infection etiology has been negative and negative UA CT of the chest did not show any pneumonia CT abdominal pelvis noted without any oral contrast issues fecal stasis but no evidence of any obstruction with a question of possible BREAKFAST COOK 2-await MRI of the brain if negative, recommend LP and CSF examination 3-follow-up continue with empiric cefepime and vancomycin while waiting for the workup to be completed We will follow on clinical condition and cultures to further adjust medication if needed Thank you for this consultation we will follow the patient along with you Dictation was produced using [employer] dictation software. please excuse any gramm atical, word or spelling errors. Time with Patient: Greater than 30
[2024-08-09] MEDS: MAGNESIUM SULFATE-D5W PMX 1 GM in DEXTROSE/WATER 1 100ML.BAG IVPB SCH (21:14)
[2024-08-09] MEDS: DILTIAZEM 125 MG in DEXTROSE 5% IN WATER 100 ML IV SCH (21:14)
[2024-08-09] MEDS: ACETAMINOPHEN TAB 325 MG TAB PO PRN (21:15)
--- NOTE | 2024-08-09 21:47 | P.CONS ---
History of Present Illness - Reason for Consult Consult date: 08/09/24 melanoma, on IO Requesting physician: Basilio Rao - Chief Complaint fever - History of Present Illness Ms. Burt is 69-year-old female pt of Dr. Hays with a history of renal cell carcinoma in 2018, treated with left nephrectomy, no systemic treatment and has been following with Dr. Collins for the same. In Apr 2024 she had been having increasing right hip pain and difficulty bearing weight on her right lower extremity, also reported intermittent right sided chest pain over the previous 2 to 3 weeks. MRI of right femur/thigh showed intraosseous mass in the sub trochanteric and intertrochanteric region of the right femur measuring 59 x 37mm. Some ill-defined bone marrow enhancement that extends up to 5.4 cm inferiorly. No evidence of fracture. No evidence for lymphadenopathy or other suspicious lesion. CTA was negative for PE, no adenopathy or mass lesion. CTAP and bone scan were also negative for any site of disease. It was felt that the bone lesion represented isolated metastases from RCC. Referral to orthopedic oncology at [facility], CT-guided biopsy and embolization 04/27/2024 followed by debridement and prophylactic intramedullary nail placement, biopsy consistent with RCC, clear-cell type. She was referred to radiation oncology for treatment of the same. Systemic treatment recommended for metastatic disease. Patient was started on dual CTL A4/PD-L1 inhibitor treatment. She is status post 2 cycles. She had vision loss after her first cycle, stat MRI of the brain was negative. She was referred to ophthalmology, steroid taper initiated, eye complaints resolved. She had her second cycle 07/17/2024. She had done well up until just a few days ago. Patient states that she had nausea, rash that is resolved. She denied any fevers, diarrhea, hematuria. Patient does not remember coming into the hospital. It is reported in the emergency notes that patient was admitted with altered mental status, nausea, vomiting, diarrhea, x 1 day, concerns for dehydration. When I spoke with her today she was oriented x 3. In general she feels malaise, fatigue, denies any oral irritation, difficulty swallowing, chest pain, abdominal pain or cramping, swelling or bleeding. She has had a Tmax of 99.7 since admission she has had a bowel movement. White count 11.2, mostly neutrophils. Potassium slightly low at 3.3. She did have elevated troponins. Lactic acid was normal viral panel negative opioids, benzodiazepines, marijuana detected in the urine she has been seen by infectious disease, neurology and cardiology. CT of the brain without contrast, no acute intracranial process CT CAP with contrast reporting possible fecal impaction, nothing to suggest obstruction. No other abnormal findings reported Review of Systems 10 point ROS is neg except as stated in HPI Past Medical History Past Medical History: Cancer, Chest Pain / Angina, Heart Failure, GERD/Reflux, Hyperlipidemia, Hypertension, Myocardial Infarction (ID), Pneumonia, Sleep Apnea/CPAP/BIPAP, Thyroid Disorder Additional Past Medical History / Comment(s): "electrical heart attack", PUD, hypothyroid, low back pain, rib fx, diverticulosis dx/benign polyp, Renal/Bone Ca Last Myocardial Infarction Date:: 2012 History of Any Multi-Drug Resistant Organisms: None Reported Past Surgical History: Back Surgery, Heart Catheterization, Orthopedic Surgery, Tonsillectomy, Tubal Ligation Additional Past Surgical History / Comment(s): 2012 cardiac cath-normal x2, 01/11/17 colonoscopy/benign polypectomy, ORIF LT FT, back x2, "lt NEPHRECTOMY d/t cancer". 09/30-heart cath-clear. dehiscence of incision with kidney surgery trigger finger repair rt hand Past Anesthesia/Blood Transfusion Reactions: Postoperative Nausea & Vomiting (PONV) Additional Past Anesthesia/Blood Transfusion Reaction / Comm: no hx blood transfusion. Anesthesia: elevation in blood pressure, aspirated after a surgery at [facility]; Pt does not want propofol Past Psychological History: Anxiety, Depression Additional Psychological History / Comment(s): and lives with the . Does not work outside of the home. Has pet dogs at home Smoking Status: Former smoker Past Alcohol Use History: None Reported Additional Past Alcohol Use History / Comment(s): Pt started smoking in 1971 smoked <1 ppd and quit may 2017 Past Drug Use History: Marijuana - Past Family History Mother Family Medical History: Hyperlipidemia Additional Family Medical History / Comment(s): Mother was healthy and lived to be 92 yrs. old. alcohol abuse Father History Unknown: Yes Family Medical History: Chest Pain / Angina Medications and Allergies Home Medications Medication Instructions Recorded Confirmed Type ALPRAZolam [Xanax] 0.5 mg PO TID 07/08/17 08/08/24 History Atorvastatin [Lipitor] 40 mg PO DAILY 09/23/20 08/08/24 History Levothyroxine Sodium 137 mcg PO MOTUWETHFRSA 09/23/20 08/08/24 History Apixaban [Eliquis] 5 mg PO BID 09/01/22 08/08/24 History Fesoterodine Fumarate 8 mg PO DAILY 09/28/23 08/08/24 History [Fesoterodine Fumarate ER] Isosorbide Mononitrate ER [Imdur] 30 mg PO DAILY 09/28/23 08/08/24 History Metoprolol Succinate (ER) [Toprol 25 mg PO DAILY 09/28/23 08/08/24 History XL] Ergocalciferol [Vitamin D2 (1250 1,250 mcg PO Q14D 04/10/24 08/08/24 History Mcg = 89714 Iu)] Escitalopram [Lexapro] 10 mg PO DAILY 08/08/24 08/08/24 History Ipilimumab [Yervoy] 1 dose IV Q21D 08/08/24 08/08/24 History Losartan [Cozaar] 25 mg PO DAILY 08/08/24 08/08/24 History Morphine Sulfate Ir [MSIR] 15 mg PO Q6H PRN 08/08/24 08/08/24 History Nivolumab [Opdivo] 1 dose IV Q21D 08/08/24 08/08/24 History Omeprazole [PriLOSEC] 20 mg PO DAILY 08/08/24 08/08/24 History Ondansetron Odt [Zofran Odt] 8 mg PO Q8HR PRN 08/08/24 08/08/24 History Allergies Allergy/AdvReac Type Severity Reaction Status Date / Time Sulfa (Sulfonamide Allergy Rash/Hives Verified 08/08/24 17:43 Antibiotics) NSAIDS (Non-Steroidal AdvReac NO NSAIDS Verified 08/08/24 17:43 Anti-Inflamma DUE TO ONLY 1 KIDNEY Physical Exam Vitals: Vital Signs Temp Pulse Pulse Resp BP BP Pulse Ox 08/09/24 11:57 99 F 86 22 161/94 96 08/09/24 08:00 98 F 89 22 144/76 99 08/09/24 04:20 97.8 F 85 24 135/78 99 08/08/24 23:13 98.5 F 69 22 166/97 97 08/08/24 22:00 80 18 149/74 95 08/08/24 20:00 64 18 120/69 91 L 08/08/24 19:32 83 19 97 08/08/24 18:12 95 20 167/76 95 08/08/24 17:37 98.5 F 08/08/24 16:42 99.7 F H 108 H 26 H 177/122 98 Intake and Output 08/08/24 08/09/24 08/09/24 22:59 06:59 14:59 Intake Total 0 Balance 0 Intake: Oral 0 Other: Voiding Method Diaper Diaper Incontinent Incontinent # Voids 0 1 # Bowel Movements 0 1 Weight 77.111 kg 77.111 kg - Constitutional General appearance: average body habitus, cooperative, no acute distress - EENT Eyes: anicteric sclerae, EOMI ENT: hearing grossly normal, normal oropharynx - Neck Neck: no lymphadenopathy - Respiratory Respiratory: bilateral: CTA, diminished - Cardiovascular Rhythm: regular Heart sounds: normal: S1, S2 Abnormal Heart Sounds: no systolic murmur, no diastolic murmur, no rub, no S3 Gallop, no S4 Gallop, no click, no other leg Peripheral Edema: bilateral: None - Gastrointestinal General gastrointestinal: normal bowel sounds, soft - Integumentary Integumentary: normal - Neurologic Neurologic: CNII-XII intact - Musculoskeletal Musculoskeletal: strength equal bilaterally - Psychiatric Psychiatric: A&O x's 3, appropriate affect, intact judgment & insight Results CBC & Chem 7: 08/09/24 06:03 08/09/24 07:52 Labs: Abnormal Lab Results - Last 24 Hours (Table) 08/08/24 08/08/24 08/08/24 Range/Units 17:17 17:18 17:27 WBC 15.23 H (4.50-10.00) 10*3/uL MPV 9.3 L (9.5-12.2) fL Immature Gran # 0.14 H (0.00-0.04) 10*3/uL Neutrophils # 12.94 H (1.80-7.70) 10*3/uL Lymphocytes # (0.90-5.00) 10*3/uL Monocytes # 1.19 H (0.20-1.00) 10*3/uL Eosinophils # 0.00 L (0.04-0.35) 10*3/uL APTT (22.0-30.0) sec VBG pH 7.59 H (7.31-7.41) VBG pCO2 23 L (37-51) mmHg VBG HCO3 22 L (24-28) mmol/L Sodium 136 L (137-145) mmol/L Potassium 3.2 L (3.5-5.1) mmol/L Chloride (98-107) mmol/L Carbon Dioxide 19 L (22-30) mmol/L BUN 19 H (7-17) mg/dL Glucose 139 H (74-99) mg/dL Plasma Lactic Acid Yg (0.7-2.0) mmol/L AST 44 H (14-36) U/L ALT 40 H (4-34) U/L Troponin I (0.000-0.034) ng/mL Urine Protein (Negative) Urine Blood (Negative) Urine RBC (0-5) /hpf Urine Mucus (None) /hpf Urine Opiates Screen (NotDetected) U Benzodiazepines Scrn (NotDetected) U Marijuana (THC) Screen (NotDetected) 08/08/24 08/08/24 08/08/24 Range/Units 17:27 17:27 17:27 WBC (4.50-10.00) 10*3/uL MPV (9.5-12.2) fL Immature Gran # (0.00-0.04) 10*3/uL Neutrophils # (1.80-7.70) 10*3/uL Lymphocytes # (0.90-5.00) 10*3/uL Monocytes # (0.20-1.00) 10*3/uL Eosinophils # (0.04-0.35) 10*3/uL APTT 21.5 L (22.0-30.0) sec VBG pH (7.31-7.41) VBG pCO2 (37-51) mmHg VBG HCO3 (24-28) mmol/L Sodium (137-145) mmol/L Potassium (3.5-5.1) mmol/L Chloride (98-107) mmol/L Carbon Dioxide (22-30) mmol/L BUN (7-17) mg/dL Glucose (74-99) mg/dL Plasma Lactic Acid Yg 5.1 H* (0.7-2.0) mmol/L AST (14-36) U/L ALT (4-34) U/L Troponin I 0.108 H* (0.000-0.034) ng/mL Urine Protein (Negative) Urine Blood (Negative) Urine RBC (0-5) /hpf Urine Mucus (None) /hpf Urine Opiates Screen (NotDetected) U Benzodiazepines Scrn (NotDetected) U Marijuana (THC) Screen (NotDetected) 08/08/24 08/08/24 08/09/24 Range/Units 17:46 20:27 00:09 WBC (4.50-10.00) 10*3/uL MPV (9.5-12.2) fL Immature Gran # (0.00-0.04) 10*3/uL Neutrophils # (1.80-7.70) 10*3/uL Lymphocytes # (0.90-5.00) 10*3/uL Monocytes # (0.20-1.00) 10*3/uL Eosinophils # (0.04-0.35) 10*3/uL APTT (22.0-30.0) sec VBG pH (7.31-7.41) VBG pCO2 (37-51) mmHg VBG HCO3 (24-28) mmol/L Sodium (137-145) mmol/L Potassium (3.5-5.1) mmol/L Chloride (98-107) mmol/L Carbon Dioxide (22-30) mmol/L BUN (7-17) mg/dL Glucose (74-99) mg/dL Plasma Lactic Acid Yg (0.7-2.0) mmol/L AST (14-36) U/L ALT (4-34) U/L Troponin I 0.113 H* 0.095 H* (0.000-0.034) ng/mL Urine Protein 1+ H (Negative) Urine Blood Moderate H (Negative) Urine RBC 17 H (0-5) /hpf Urine Mucus Rare H (None) /hpf Urine Opiates Screen Detected H (NotDetected) U Benzodiazepines Scrn Detected H (NotDetected) U Marijuana (THC) Screen Detected H (NotDetected) 08/09/24 08/09/24 Range/Units 06:03 07:52 WBC 11.29 H (4.50-10.00) 10*3/uL MPV (9.5-12.2) fL Immature Gran # 0.06 H (0.00-0.04) 10*3/uL Neutrophils # 9.77 H (1.80-7.70) 10*3/uL Lymphocytes # 0.61 L (0.90-5.00) 10*3/uL Monocytes # (0.20-1.00) 10*3/uL Eosinophils # 0.00 L (0.04-0.35) 10*3/uL APTT (22.0-30.0) sec VBG pH (7.31-7.41) VBG pCO2 (37-51) mmHg VBG HCO3 (24-28) mmol/L Sodium (137-145) mmol/L Potassium 3.3 L (3.5-5.1) mmol/L Chloride 110 H (98-107) mmol/L Carbon Dioxide (22-30) mmol/L BUN (7-17) mg/dL Glucose 120 H (74-99) mg/dL Plasma Lactic Acid Yg (0.7-2.0) mmol/L AST (14-36) U/L ALT (4-34) U/L Troponin I (0.000-0.034) ng/mL Urine Protein (Negative) Urine Blood (Negative) Urine RBC (0-5) /hpf Urine Mucus (None) /hpf Urine Opiates Screen (NotDetected) U Benzodiazepines Scrn (NotDetected) U Marijuana (THC) Screen (NotDetected) CT scan - abdomen: report reviewed CT scan - chest: report reviewed CT Scan - head: report reviewed CT scan - pelvis: report reviewed Assessment and Plan (1) Altered mental status Current Visit: Yes Status: Acute Priority: High Code(s): R41.82 - ALTERED MENTAL STATUS, UNSPECIFIED SNOMED Code(s): 256529210 (2) Dehydration Current Visit: Yes Status: Acute Priority: High Code(s): E86.0 - DEHYDRAT ION SNOMED Code(s): 65864532 (3) History of renal cell carcinoma Current Visit: No Status: Chronic Priority: Medium Code(s): Z85.528 - PERSONAL HISTORY OF OTHER MALIGNANT NEOPLASM OF KIDNEY SNOMED Code(s): 682533849 Plan: Admitted with altered mental status, nausea, vomiting, diarrhea, x 1 day, concerns for dehydration. -Since admission patient has been provided with hydration, supportive medications and then started on antibiotics. Infectious disease has seen the patient -Consult to Cardiology and Neurology, pending their workup and recommendations. -Unclear at this time if this may be an immunotherapy side effect. This would be less likely if symptoms improve spontaneously or with treatment of infection. Will follow with patient and her clinical course. She seemed to have some improvement in her mental status today when seen Metastatic renal cell carcinoma - Diagnosis and treatment as stated in HPI - Metastatic RCC, bone only. Treated by Orthopedic Oncology to prevent a pathological fracture rt femur. She has had radiation to the area. She was started on CTL A4/PD-L1 inhibitor treatment. She is status post 2 cycles. Last treatment was 07/17/24. Not due for treatment for little over a week. Pending patient's recovery, treatment may be delayed.
[2024-08-10 06:20] LABS: Basophils % (A) 0.1 %; Eosinophils % (A) 0.1 %; HGB 13.5 g/dL (12.0-15.0); Lymphocytes # (A) 0.63 10*3/uL (0.90-5.00); Lymphocytes % (A) 6.2 %; MCH 29.5 pg (27.0-32.0); MCHC 33.8 g/dL (32.0-37.0); MCV 87.3 fL (80.0-97.0); Monocytes % (A) 7.4 %; Neutrophils # (A) 8.73 10*3/uL (1.80-7.70); Neutrophils % (A) 85.6 %; Platelet Count 227 10*3/uL (140-440); RBC 4.58 10*6/uL (4.10-5.20); RDW 18.5 % (11.5-14.5); WBC 10.19 10*3/uL (4.50-10.00)
[2024-08-10 06:21] LABS: Basophils # (A) 0.01 10*3/uL (0.00-0.10); Eosinophils # (A) 0.01 10*3/uL (0.04-0.35); Monocytes # (A) 0.75 10*3/uL (0.20-1.00)
[2024-08-10] MEDS ORDERED: VANCOMYCIN TROUGH DUE 1 EACH MISC MISCELLANE ONE (07:00)
[2024-08-10 07:13] LABS: ALT 30 U/L (4-34); AST 31 U/L (14-36); African American GFR (CKD) >90 (>60 ml/min/1.73 sqM); Albumin 3.6 g/dL (3.5-5.0); Alkaline Phosphatase 63 U/L (38-126); Anion Gap 9 mmol/L; Blood Urea Nitrogen 12 mg/dL (7-17); C Reactive Protein 6.8 mg/dL (<1.0); Calcium 9.2 mg/dL (8.4-10.2); Carbon Dioxide 23 mmol/L (22-30); Chloride 103 mmol/L (98-107); Glucose 115 mg/dL (74-99); Non-African American GFR(CKD) 84 (>60 ml/min/1.73 sqM); Potassium 3.5 mmol/L (3.5-5.1); Sodium 135 mmol/L (137-145); Total Protein 6.7 g/dL (6.3-8.2)
--- NOTE | 2024-08-10 08:39 | P.PN ---
Subjective Progress Note Date: 08/10/24 This is a 69-year-old female with a known history of metastatic renal cancer who presented to the emergency department with significant disorientation. Patient's mentation has started to improve. She underwent an MRI of the brain yesterday which is showing questionable spots for possible metastasis. Patient is seen this morning resting comfortably in bed. She did suffer a fall last night after trying to get up to use the restroom by herself. Sitter is present at bedside this morning. Neurology started patient on Keppra yesterday. EEG and echo still to be completed. Objective - Vital Signs Vital signs: Vital Signs Temp 98.5 F 08/10/24 04:05 Pulse 113 H 08/10/24 04:05 Resp 22 08/10/24 04:05 BP 136/94 08/10/24 04:05 Pulse Ox 98 08/10/24 04:05 FiO2 Intake & Output 08/09/24 08/10/24 08/10/24 18:59 06:59 18:59 Intake Total 0 Balance 0 Weight 78 kg Intake: Oral 0 Other: Voiding Method Diaper Diaper Incontinent Incontinent # Voids 1 1 # Bowel Movements 1 0 - Constitutional General appearance: Present: cooperative, no acute distress - EENT Eyes: Present: PERRLA - Neck Neck: Present: normal ROM. Absent: lymphadenopathy, rigidity - Cardiovascular Heart sounds: normal: S1, S2 - Gastrointestinal General gastrointestinal: Present: soft. Absent: tenderness - Integumentary Integumentary: Present: normal, normal turgor - Musculoskeletal Musculoskeletal: Present: generalized weakness - Psychiatric Psychiatric: Present: A&O x's 3 - Labs CBC & Chem 7: 08/10/24 06:02 08/10/24 06:02 Labs: Abnormal Lab Results - Last 24 Hours (Table) 08/10/24 08/10/24 Range/Units 06:02 06:02 WBC 10.19 H (4.50-10.00) 10*3/uL MPV 9.0 L (9.5-12.2) fL Immature Gran # 0.06 H (0.00-0.04) 10*3/uL Neutrophils # 8.73 H (1.80-7.70) 10*3/uL Lymphocytes # 0.63 L (0.90-5.00) 10*3/uL Eosinophils # 0.01 L (0.04-0.35) 10*3/uL Sodium 135 L (137-145) mmol/L Glucose 115 H (74-99) mg/dL C-Reactive Protein 6.8 H (<1.0) mg/dL Microbiology - Last 24 Hours (Table) 08/08/24 20:27 Blood Culture - Preliminary Blood Assessment and Plan (1) Dehydration Current Visit: Yes Status: Acute Priority: High Code(s): E86.0 - DEHYDRATION SNOMED Code(s): 04425640 (2) Elevated troponin Current Visit: Yes Status: Acute Code(s): R79.89 - OTHER SPECIFIED ABNORMAL FINDINGS OF BLOOD CHEMISTRY SNOMED Code(s): 627726204 (3) Encephalopathy Current Visit: Yes Status: Acute Code(s): G93.40 - ENCEPHALOPATHY, UNSPECIFIED SNOMED Code(s): 55787698 (4) Acute kidney injury Current Visit: No Status: Acute Code(s): N17.9 - ACUTE KIDNEY FAILURE, UNSPECIFIED SNOMED Code(s): 43958822 (5) History of renal carcinoma Current Visit: No Status: Acute Code(s): Z85.528 - PERSONAL HISTORY OF OTHER MALIGNANT NEOPLASM OF KIDNEY SNOMED Code(s): 83946685896947 (6) Hypertension Current Visit: No Status: Acute Code(s): I10 - ESSENTIAL (PRIMARY) HYPERTENSION SNOMED Code(s): 60716891 Plan: Check CBC and CMP in the morning. Appreciate multiple consultants. Patient seen and evaluated by nurse practitioner, physician in agreement with plan.
--- NOTE | 2024-08-10 14:27 | P.PN ---
Subjective Progress Note Date: 08/10/24 I am following-up with the patient and no further seizures noted. Objective - Vital Signs Vital signs: Vital Signs Temp 98.6 F 08/10/24 08:00 Pulse 104 H 08/10/24 08:00 Resp 20 08/10/24 08:00 BP 162/89 08/10/24 08:00 Pulse Ox 96 08/10/24 08:00 FiO2 Intake & Output 08/09/24 08/10/24 08/10/24 18:59 06:59 18:59 Intake Total 0 Output Total 900 Balance 0 -900 Weight 78 kg Intake: Oral 0 Output: Urine 900 Other: Voiding Method Diaper Diaper Incontinent Incontinent # Voids 1 1 # Bowel Movements 1 0 - Exam General: Lying in bed and is not in acute distress. Neuro: The patient is mildly drowsy but is awakeable to voice. Is oriented to self, place and time. Is following simple commands. No aphasia. No facial weakness. No dysarthia. Some of the workup during this hospital visit consisted of: He had low-grade fever on presentation of 99.7 Fahrenheit and after that no further fevers. White Blood cell is 15,000 and repeated 11,000. Plasma lactic vein is 5.1 and repeated is normal. Troponin is high as 0.113 I reviewed the rest of lab work-up. CT of the head is reported as no acute intracranial process. I personally reviewed the CT and agree with the report MRI of the brain is reported as increased signal within the posterior occipital lobe bilaterally. No underlying enhancement is evident. Findings are nonspecific. Finding could be related to early metastasis. Hyperintense changes can affect this region. White matter ischemic change is less likely given the focal distribution. I personally reviewed the MRI and I felt there is concern for posterior reversible encephalopathy syndrome (PRES). - Labs CBC & Chem 7: 08/10/24 06:02 08/10/24 06:02 Labs: Abnormal Lab Results - Last 24 Hours (Table) 08/10/24 08/10/24 Range/Units 06:02 06:02 WBC 10.19 H (4.50-10.00) 10*3/uL MPV 9.0 L (9.5-12.2) fL Immature Gran # 0.06 H (0.00-0.04) 10*3/uL Neutrophils # 8.73 H (1.80-7.70) 10*3/uL Lymphocytes # 0.63 L (0.90-5.00) 10*3/uL Eosinophils # 0.01 L (0.04-0.35) 10*3/uL Sodium 135 L (137-145) mmol/L Glucose 115 H (74-99) mg/dL C-Reactive Protein 6.8 H (<1.0) mg/dL Microbiology - Last 24 Hours (Table) 08/08/24 20:27 Blood Culture - Preliminary Blood Assessment and Plan Assessment: This is a 69-year-old woman with history of metastatic renal cancer who received 2 weeks of radiation therapy and is getting chemotherapy who presents to the emergency department because of altered mental status. It seems at home she had episode where eyes rolling back shaking of upper extremity with urinary incontinence with tongue bite. The she had 2 similar episodes in the past witnessed by the caregiver and during these episodes her blood pressure is brittle Likely new onset seizure. MRI Brain is reported as concerning for early brain mets in occipital region bilaterally but I felt it was more PRES (posterior reversible encephalopathy syndrome). Leukocytosis and low-grade fever--no further fevers. Leukocytosis is trending down. Unknown exact etiology. Unsure if it is reactive due to the seizures Slightly elevated troponin Metastatic renal cancer and received 2 weeks of radiation therapy and is getting chemotherapy and she has not completed the entire chemotherapy regimen yet Plan: I started the patient on Keppra 500 mg twice a day on 08/09/2024 and I notified the patient and her that it can cause mood/behavioral issues and if he does not develop those discontinue Keppra and consider Vimpat 50 mg twice daily Pending routine EEG With the [facility] because of seizures, avoid driving for 6 months until seizure-free, avoid heights, avoid swimming assisted or using heavy machinery Will try to obtain a second opinion radiologist for MRI Brain, since I feel more PRES. I.D. team is consulted Primary team started the patient on vancomycin, cefepime. I will defer modification of the medication to primary and ID team If unknown cause of her leukocytosis and continues to have fever then recommend pursuing with lumbar puncture. Oncology is consulted Cardiology team is consulted Defer the rest of the medical management department other specialist The plan is discussed with patient and her who is at bedside as well her nurse. Time with Patient: Less than 30
[2024-08-10] MEDS: DEXTROSE 5% IN WATER 100 ML with AMIODARONE 150 MG IV ONE (14:36)
[2024-08-10] MEDS: AMIODARONE 360 MG in DEXTROSE 5% IN WATER 200 ML IV ONE (15:01)
--- NOTE | 2024-08-10 15:04 | P.PN ---
Subjective Progress Note Date: 08/10/24 Reason for Consult (text): Elevated troponins History of present illness: This is a 69-year-old female patient of Dr. Bright with past medical history of hypertension, dyslipidemia, atrial flutter, renal cell carcinoma. We have been asked to evaluate the patient for elevated troponins. Patient was brought into the hospital due to altered mental status with nausea, vomiting and diarrhea according to the ER notes. According to the patient's son, patient was confused and having falls. She then lost control of her urine and stools. She did not recognize her . Once she arrived to the hospital she was given sedation because she was combative and then she was sleeping all night. Patient states she does not remember what happened. She denies chest pain or chest discomfort. No fever or chills no cough. She denies diarrhea. According to the son, patient had 1 dose of immunotherapy for renal cell carcinoma and developed rash and the next dose was being delayed but she underwent the second transfusion last week. He is also concerned the patient is having some type of seizure activity since she started treatment as has episodes of weakness and her eyes rolled back in her head. She apparently had an episode when the visiting nurse was at the home. She is also status post 6 rounds of radiation therapy. Blood pressure 135/78, heart rate 85, pulse ox 99% on room air. Patient is status post 2 L IV fluid bolus, potassium replacement, IV antibiotics, Ativan, Seroquel and Haldol. Infectious disease, oncology and neurology are on consult. -EKG: Sinus rhythm with no acute ST-T wave changes. -CT chest abdomen pelvis: Fecal balls, correlate for fecal impaction of the rectum. Right renal cyst. Status post left nephrectomy. -CT brain: No acute process. -Laboratory studies: Troponin 0.108, 0.113, 0.095. WBC initially 15.2 now 11.2, hemoglobin 13.1. Venous pH 7.59, pCO2 23, bicarb 22. Potassium 3.3, creatinine 0.72. Urinalysis with moderate amount of blood and RBCs 17, urine drug screen positive for opiates, benzodiazepines and marijuana. Alcohol level less than 10, salicylate Tylenol level within normal limits. Cepheid viral panel not detected. -Home cardiac medications: Eliquis 5 mg twice daily, atorvastatin 40 mg daily, Imdur 30 mg daily, losartan 25 mg daily, metoprolol succinate 25 mg daily. -Cardiac catheterization performed in 2012 revealed normal coronary arteries. -Echocardiogram performed 09/29/2023 at [facility] revealed technically suboptimal study secondary to poor echo windows. Left ventricular size and systolic function are normal. -Lexiscan Cardiolite stress test performed 09/29/2023 at [facility] revealed no reversible ischemia. -3-day event monitor performed 02/2023 revealed sinus rhythm with average heart rate of 90, minimum 66, maximum 132. SVE burden 0.01%. SVT 1 event 3 beats. PVC burden less than 0.1% with 2 total PVCs. 08/10 Patient seen and examined on the cardiac stepdown unit. Patient remains in atrial flutter. She is having pauses including 1 sinus arrest at 4.3 seconds. Patient states that her chest hurts and she has a hard time breathing and feels about the same as yesterday. Patient was started on Cardizem drip last evening for the A-flutter. Heart rate in the low 100s, blood pressure 162/89, pulse ox 96% on room air. She has been afebrile. Repeat blood work reveals WBC 10.1, hemoglobin 13.5, sodium 135, potassium 3.5, creatinine 0.74. Procalcitonin less than 0.2. Echocardiogram has been obtained and report is pending. Physical examination: Gen: This is 69-year-old female in no acute distress. VS: reviewed HEENT: Head is atraumatic, normocephalic. Pupils equal, round. Sclerae is anicteric. NECK: Supple. No JVD. LUNGS: Clear to auscultation. No wheezes or rhonchi. No intercostal retractions. HEART: Regular rate and rhythm. No murmur. ABDOMEN: Soft No tenderness. EXTREMITIES: No pedal edema. No calf tenderness. NEUROLOGICAL: Patient is awake, alert and oriented x3. Assessment: Elevated troponins, NSTEMI, possibly type II Metabolic encephalopathy Sepsis of unclear etiology Renal cell carcinoma on chemotherapy and radiation therapy Hypertension Dyslipidemia Typical atrial flutter with episode of RVR, currently in atrial flutter Conversion pauses Sinus arrest with pause of 4.3 seconds Plan: Continue patient's home cardiac medications Start patient on amiodarone drip Discontinue Cardizem drip Continue telemetry monitoring Due to sinus arrest most likely conversion pause, patient will be considered for rhythm control with amiodarone. Continue telemetry monitoring to rule out sick sinus syndrome. Unclear if patient is a good pacemaker candidate. Obtain 2-D echocardiogram and Doppler study to assess cardiac structure and function Further recommendations to follow based upon clinical course Nurse practitioner note has been reviewed, I agree with documented findings and plan of care. Patient was seen and examined. Objective - Vital Signs Vital signs: Vital Signs Temp 98.6 F 08/10/24 08:00 Pulse 104 H 08/10/24 08:00 Resp 20 08/10/24 08:00 BP 162/89 08/10/24 08:00 Pulse Ox 96 08/10/24 08:00 FiO2 Intake & Output 08/09/24 08/10/24 08/10/24 18:59 06:59 18:59 Intake Total 0 Output Total 900 Balance 0 -900 Weight 78 kg Intake: Oral 0 Output: Urine 900 Other: Voiding Method Diaper Diaper Incontinent Incontinent # Voids 1 1 # Bowel Movements 1 0 - Labs CBC & Chem 7: 08/10/24 06:02 08/10/24 06:02 Labs: Abnormal Lab Results - Last 24 Hours (Table) 08/10/24 08/10/24 Range/Units 06:02 06:02 WBC 10.19 H (4.50-10.00) 10*3/uL MPV 9.0 L (9.5-12.2) fL Immature Gran # 0.06 H (0.00-0.04) 10*3/uL Neutrophils # 8.73 H (1.80-7.70) 10*3/uL Lymphocytes # 0.63 L (0.90-5.00) 10*3/uL Eosinophils # 0.01 L (0.04-0.35) 10*3/uL Sodium 135 L (137-145) mmol/L Glucose 115 H (74-99) mg/dL C-Reactive Protein 6.8 H (<1.0) mg/dL Microbiology - Last 24 Hours (Table) 08/08/24 20:27 Blood Culture - Preliminary Blood
--- NOTE | 2024-08-10 15:13 | P.PN ---
Subjective Progress Note Date: 08/10/24 Principal diagnosis: Reason for follow-up is fever/leukocytosis Patient is a 69-year-old female past medical history significant for Heart Failure, GERD/Reflux, Hyperlipidemia, Hypertension, Myocardial Infarction (NM), Pneumonia, Sleep Apnea/CPAP/BIPAP, Thyroid Disorder, renal cancer presenting to the hospital for evaluation of mental status changes nausea vomiting, she did have a low-grade fever with elevated white count prompting this consultation. On today's evaluation that is 08/10/2024,the patient is afebrile, patient is more awake and alert and on room air not requiring supplemental oxygen and denies any shortness of breath no chest pain or cough.Patient denies having any nausea or vomiting, no abdominal pain and no diarrhea has been reported. Patient white count is 10.19 creatinine 0.74 Pro-Dhruv less than 0.20 Objective - Vital Signs Vital signs: Vital Signs Temp 98.6 F 08/10/24 08:00 Pulse 109 H 08/10/24 14:00 Resp 20 08/10/24 08:00 BP 162/89 08/10/24 08:00 Pulse Ox 96 08/10/24 08:00 FiO2 Intake & Output 08/09/24 08/10/24 08/10/24 18:59 06:59 18:59 Intake Total 0 Output Total 900 Balance 0 -900 Weight 78 kg Intake: Oral 0 Output: Urine 900 Other: Voiding Method Diaper Diaper Incontinent Incontinent # Voids 1 1 # Bowel Movements 1 0 - Exam GENERAL DESCRIPTION: An elderly female lying in bed in no distress RESPIRATORY SYSTEM: Unlabored breathing , decreased breath sounds at bases HEART: S1 S2 regular rate and rhythm , ABDOMEN: Soft , no tenderness EXTREMITIES: No edema feet - Labs CBC & Chem 7: 08/10/24 06:02 08/10/24 06:02 Labs: Abnormal Lab Results - Last 24 Hours (Table) 08/10/24 08/10/24 Range/Units 06:02 06:02 WBC 10.19 H (4.50-10.00) 10*3/uL MPV 9.0 L (9.5-12.2) fL Immature Gran # 0.06 H (0.00-0.04) 10*3/uL Neutrophils # 8.73 H (1.80-7.70) 10*3/uL Lymphocytes # 0.63 L (0.90-5.00) 10*3/uL Eosinophils # 0.01 L (0.04-0.35) 10*3/uL Sodium 135 L (137-145) mmol/L Glucose 115 H (74-99) mg/dL C-Reactive Protein 6.8 H (<1.0) mg/dL Microbiology - Last 24 Hours (Table) 08/08/24 20:27 Blood Culture - Preliminary Blood Assessment and Plan (1) Fever Current Visit: Yes Status: Acute Code(s): R50.9 - FEVER, UNSPECIFIED SNOMED Code(s): 610051093 (2) Leukocytosis Current Visit: No Status: Acute Code(s): D72.829 - ELEVATED WHITE BLOOD CELL COUNT, UNSPECIFIED SNOMED Code(s): 330592744 Plan: 1patient presented to hospital with mental status changes in this patient noti lyle to have a low-grade fever also have elevated white count initial workup for infection etiology has been negative and negative UA CT of the chest did not show any pneumonia CT abdominal pelvis noted without any oral contrast issues fecal stasis but no evidence of any obstruction with a question of possible [employer] 2-MRI of the brain has been suggestive of Posterior reversible encephalopathy syndrome versus small right occipital infarct and could be the etiology of her mental status changes as per discussion with the neurologist hence we will put on hold the LP at this point 3-patient is currently on empiric cefepime and vancomycin while waiting for the culture to finalize Dictation was produced using [employer] dictation software. please excuse any grammatical, word or spelling errors. Time with Patient: Less than 30
--- NOTE | 2024-08-10 17:33 | CA ---
Transthoracic Echo Report Name: Annamaria Humphrey Age: 69 Gender: F : 1955 Exam Date: 08/09/2024 11:03 Exam Location: [place] Echo Ht (in): 67 Wt (lb): 170 Ordering Physician: Vicky Bar Attending/Referring Phys: [id number], Yosvany Head Of [employer] Mayda Barboza RDCS Procedure CPT: Indications: lvf, NSTEMI Cardiac Hx: Technical Quality: Technically difficult study Contrast 1: Definity Total Dose (mL): 2 Contrast 2: Total Dose (mL): MEASUREMENTS (Male / Female) Normal Values 2D ECHO LV Diastolic Diameter PLAX 4.0 cm 4.2 - 5.9 / 3.9 - 5.3 cm LV Systolic Diameter PLAX 2.8 cm IVS Diastolic Thickness 1.1 cm 0.6 - 1.0 / 0.6 - 0.9 cm LVPW Diastolic Thickness 1.1 cm 0.6 - 1.0 / 0.6 - 0.9 cm LV Relative Wall Thickness 0.5 RV Internal Dim ED PLAX 2.7 cm LVOT Diameter 1.7 cm LA Systolic Diameter LX 3.0 cm 3.0 - 4.0 / 2.7 - 3.8 cm LV Diastolic Volume MOD 4C 81.5 cm??? LV Systolic Volume MOD 4C 13.2 cm??? LV Ejection Fraction MOD 4C 83.8 % LV Cardiac Index MOD 4C 3123.6 cm???/min???m??? LV Diastolic Length 4C 8.6 cm LV Systolic Length 4C 6.2 cm LA Volume 48.6 cm??? 18 - 58 / 22 - 52 cm??? LA Volume Index 25.3 cm???/m??? 16 - 28 cm???/m??? DOPPLER MV Area PHT 3.2 cm??? Mitral E Point Velocity 54.0 cm/s Mitral A Point Velocity 82.6 cm/s Mitral E to A Ratio 0.7 MV Deceleration Time 238.1 ms FINDINGS Left Ventricle Left ventricular ejection fraction is estimated at 55-60%. Mild concentric left ventricular hypertrophy. Normal left ventricular systolic function with no obvious regional wall motion abnormalities. Left ventricular cavity size normal. Right Ventricle Right ventricle not well visualized. Unable to estimate the right ventricular systolic pressure. Right Atrium Right atrium not well visualized. Left Atrium Normal left atrial size. Mitral Valve Mitral valve not well visualized. No mitral stenosis. No mitral regurgitation. Aortic Valve Trileaflet aortic valve. Diffuse thickening (sclerosis) of the aortic valve cusps without reduced excursion. No aortic regurgitation. Tricuspid Valve Structurally normal tricuspid valve. No tricuspid stenosis. Trace tricuspid regurgitation. Pulmonic Valve Structurally normal pulmonic valve. No pulmonic stenosis. Trace pulmonic regurgitation. Pericardium No pericardial effusion. Aorta Normal size aortic root and proximal ascending aorta. CONCLUSIONS Technically difficult study. LVEF 60% No obvious regional wall motion abnormality. Mild concentric LVH No significant valve dysfunction Calcific thickening of aortic valve Previewed by: Dr Ryan Scott (Electronically Signed) Final Date: 10 August 2024 17:32
[2024-08-10] MEDS: AMIODARONE 450 MG in DEXTROSE 5% IN WATER 250 ML IV SCH (20:52)
--- NOTE | 2024-08-10 21:39 | EEG ---
ELECTROENCEPHALOGRAM REPORT CLINICAL HISTORY: This is a 69-year-old woman with episode of unresponsiveness, tongue bite, and eye rolled back. The video EEG is obtained to evaluate for seizure epileptiform activity. RELEVANT MEDICATION: Keppra. EEG TYPE: A routine 21-channel EEG with video using the 10/20 electrode system. DESCRIPTION: Wakefulness is obtained. During awake state, the background consists of low to moderate voltage of 7-8 hertz activity that is well modulated and well sustained. There is no physiological stage 2 sleep architecture. There is no focal slowing. INTERICTAL AND ICTAL: None. ACTIVATION PROCEDURE: This is an abnormal routine EEG. The background slowing is suggestive of mild encephalopathy. There is no focal slowing, epileptiform discharge, or seizure on the EEG. The lack of epileptiform discharge does not rule out underlying epilepsy. Clinical correlation is recommended. MMODL / IJN: [id number] /
[2024-08-11 07:22] LABS: HCT 37.1 % (37.2-46.3); HGB 12.4 g/dL (12.0-15.0); MCH 29.2 pg (27.0-32.0); MCHC 33.4 g/dL (32.0-37.0); MCV 87.3 fL (80.0-97.0); Mean Platelet Volume 9.1 fL (9.5-12.2); Platelet Count 206 10*3/uL (140-440); RBC 4.25 10*6/uL (4.10-5.20); RDW 17.7 % (11.5-14.5); WBC 9.52 10*3/uL (4.50-10.00)
[2024-08-11 07:39] LABS: ALT 27 U/L (4-34); AST 24 U/L (14-36); African American GFR (CKD) 74 (>60 ml/min/1.73 sqM); Albumin 3.5 g/dL (3.5-5.0); Alkaline Phosphatase 57 U/L (38-126); Anion Gap 7 mmol/L; Blood Urea Nitrogen 13 mg/dL (7-17); Carbon Dioxide 24 mmol/L (22-30); Chloride 104 mmol/L (98-107); Glucose 110 mg/dL (74-99); Non-African American GFR(CKD) 64 (>60 ml/min/1.73 sqM); Potassium 3.3 mmol/L (3.5-5.1); Sodium 135 mmol/L (137-145); Total Bilirubin 0.9 mg/dL (0.2-1.3); Total Protein 6.5 g/dL (6.3-8.2)
--- NOTE | 2024-08-11 08:19 | P.PN ---
Subjective Principal diagnosis: Sepsis of unknown origin with altered mental status. This is a 69-year-old white female with known history of metastatic renal cell carcinoma. She came in with altered mental status and is now back to her baseli ne as far as mentation. MRI does show possible early metastatic disease but neurology has clarified this could be more ischemic. Tolerating antibiotic treatment. Labs are trending down no fever however atrial fibrillation was noted and is now stabilizing with amiodarone. No fever chills no significant nausea, vomiting or diarrhea Objective - Vital Signs Vital signs: Vital Signs Temp 98.2 F 08/10/24 19:35 Pulse 94 08/11/24 03:40 Resp 16 08/11/24 03:40 BP 164/94 08/11/24 03:40 Pulse Ox 96 08/11/24 03:40 FiO2 Intake & Output 08/10/24 08/11/24 08/11/24 18:59 06:59 18:59 Output Total 1300 1000 Balance -1300 -1000 Weight 78 kg Output: Urine 1300 1000 Other: Voiding Method Bedside Commode - Constitutional General appearance: Present: average body habitus, cooperative. Absent: no acute distress - Neck Neck: Absent: lymphadenopathy - Respiratory Respiratory: bilateral: diminished - Cardiovascular Rhythm: regular Heart sounds: normal: S1, S2 Abnormal Heart Sounds: Absent: S3 Gallop - Gastrointestinal General gastrointestinal: Present: soft. Absent: tenderness - Labs CBC & Chem 7: 08/11/24 06:49 08/11/24 06:49 Labs: Abnormal Lab Results - Last 24 Hours (Table) 08/11/24 08/11/24 Range/Units 06:49 06:49 Hct 37.1 L (37.2-46.3) % MPV 9.1 L (9.5-12.2) fL Sodium 135 L (137-145) mmol/L Potassium 3.3 L (3.5-5.1) mmol/L Glucose 110 H (74-99) mg/dL Microbiology - Last 24 Hours (Table) 08/08/24 20:27 Blood Culture - Preliminary Blood Assessment and Plan (1) Dehydration Current Visit: Yes Status: Acute Code(s): E86.0 - DEHYDRATION SNOMED Code(s): 65686030 (2) Elevated troponin Current Visit: Yes Status: Acute Code(s): R79.89 - OTHER SPECIFIED ABNORMAL FINDINGS OF BLOOD CHEMISTRY SNOMED Code(s): 737554291 (3) Encephalopathy Current Visit: Yes Status: Acute Code(s): G93.40 - ENCEPHALOPATHY, UNSPE CIFIED SNOMED Code(s): 13689522 (4) Hypokalemia Current Visit: Yes Status: Acute Code(s): E87.6 - HYPOKALEMIA SNOMED Code(s): 75054675 (5) Sepsis Current Visit: Yes Status: Acute Code(s): A41.9 - SEPSIS, UNSPECIFIED ORGANISM SNOMED Code(s): 46600656 (6) Acute kidney injury Current Visit: No Status: Acute Code(s): N17.9 - ACUTE KIDNEY FAILURE, UNSPECIFIED SNOMED Code(s): 98720773 (7) History of renal carcinoma Current Visit: No Status: Acute Code(s): Z85.528 - PERSONAL HISTORY OF OTHER MALIGNANT NEOPLASM OF KIDNEY SNOMED Code(s): 50989548910634 Plan: Medication adjustments related to atrial fibrillation noted. Continue current regimen of antibiotic treatment. Blood cultures are nominal. She seems to be back to her normal mentation. Appreciate neurology, infectious disease and cardiology input. Check CBC and CMP in [facility] group will be covering.
[2024-08-11] MEDS: VANCOMYCIN TROUGH DUE 1 EACH MISC MISCELLANE ONE (08:52)
[2024-08-11] MEDS: AMIODARONE 200 MG TAB PO SCH (08:54)
[2024-08-11] MEDS: LOSARTAN 50 MG TAB PO SCH ×2 (08:54→20:37)
--- NOTE | 2024-08-11 09:40 | P.PN ---
Subjective Progress Note Date: 08/11/24 Reason for Consult (text): Elevated troponins History of present illness: This is a 69-year-old female patient of Dr. Bright with past medical history of hypertension, dyslipidemia, atrial flutter, renal cell carcinoma. We have been asked to evaluate the patient for elevated troponins. Patient was brought into the hospital due to altered mental status with nausea, vomiting and diarrhea according to the ER notes. According to the patient's son, patient was confused and having falls. She then lost control of her urine and stools. She did not recognize her . Once she arrived to the hospital she was given sedation because she was combative and then she was sleeping all night. Patient states she does not remember what happened. She denies chest pain or chest discomfort. No fever or chills no cough. She denies diarrhea. According to the son, patient had 1 dose of immunotherapy for renal cell carcinoma and developed rash and the next dose was being delayed but she underwent the second transfusion last week. He is also concerned the patient is having some type of seizure activity since she started treatment as has episodes of weakness and her eyes rolled back in her head. She apparently had an episode when the visiting nurse was at the home. She is also status post 6 rounds of radiation therapy. Blood pressure 135/78, heart rate 85, pulse ox 99% on room air. Patient is status post 2 L IV fluid bolus, potassium replacement, IV antibiotics, Ativan, Seroquel and Haldol. Infectious disease, oncology and neurology are on consult. -EKG: Sinus rhythm with no acute ST-T wave changes. -CT chest abdomen pelvis: Fecal balls, correlate for fecal impaction of the rectum. Right renal cyst. Status post left nephrectomy. -CT brain: No acute process. -Laboratory studies: Troponin 0.108, 0.113, 0.095. WBC initially 15.2 now 11.2, hemoglobin 13.1. Venous pH 7.59, pCO2 23, bicarb 22. Potassium 3.3, creatinine 0.72. Urinalysis with moderate amount of blood and RBCs 17, urine drug screen positive for opiates, benzodiazepines and marijuana. Alcohol level less than 10, salicylate Tylenol level within normal limits. Cepheid viral panel not detected. -Home cardiac medications: Eliquis 5 mg twice daily, atorvastatin 40 mg daily, Imdur 30 mg daily, losartan 25 mg daily, metoprolol succinate 25 mg daily. -Cardiac catheterization performed in 2012 revealed normal coronary arteries. -Echocardiogram performed 09/29/2023 at [facility] revealed technically suboptimal study secondary to poor echo windows. Left ventricular size and systolic function are normal. -Lexiscan Cardiolite stress test performed 09/29/2023 at [facility] revealed no reversible ischemia. -3-day event monitor performed 02/2023 revealed sinus rhythm with average heart rate of 90, minimum 66, maximum 132. SVE burden 0.01%. SVT 1 event 3 beats. PVC burden less than 0.1% with 2 total PVCs. 08/10 Patient seen and examined on the cardiac stepdown unit. Patient remains in atrial flutter. She is having pauses including 1 sinus arrest at 4.3 seconds. Patient states that her chest hurts and she has a hard time breathing and feels about the same as yesterday. Patient was started on Cardizem drip last evening for the A-flutter. Heart rate in the low 100s, blood pressure 162/89, pulse ox 96% on room air. She has been afebrile. Repeat blood work reveals WBC 10.1, hemoglobin 13.5, sodium 135, potassium 3.5, creatinine 0.74. Procalcitonin less than 0.2. Echocardiogram has been obtained and report is pending. 08/11 Patient seen and examined. Yesterday patient was started on amiodarone drip and Cardizem was discontinued. Patient has converted to sinus rhythm. Blood pressure 164/94, heart rate in the 90s. Patient does have a sitter at the bedside due to a fall. Repeat blood work reveals WBC 9.5, hemoglobin 12.4, potassium 3.3, sodium 135, creatinine 0.94. Echocardiogram reveals EF 60%, mild concentric LVH. No significant valve dysfunction. Physical examination: Gen: This is 69-year-old female in no acute distress. VS: reviewed HEENT: Head is atraumatic, normocephalic. Pupils equal, round. Sclerae is a nicteric. NECK: Supple. No JVD. LUNGS: Clear to auscultation. No wheezes or rhonchi. No intercostal retractions. HEART: Regular rate and rhythm. No murmur. ABDOMEN: Soft No tenderness. EXTREMITIES: No pedal edema. No calf tenderness. NEUROLOGICAL: Patient is awake, alert and oriented x3. Assessment: Elevated troponins, NSTEMI, possibly type II Metabolic encephalopathy Sepsis of unclear etiology Renal cell carcinoma on chemotherapy and radiation therapy Hypertension Dyslipidemia Typical atrial flutter with episode of RVR, converted to sinus rhythm Conversion pauses Sinus arrest with pause of 4.3 seconds Plan: Continue patient's home cardiac medications Discontinue amiodarone drip and start oral 200 mg twice daily for 1 week and then 200 mg daily Increase losartan to 50 mg daily Continue telemetry monitoring Further recommendations to follow based upon clinical course Nurse practitioner note has been reviewed, I agree with documented findings and plan of care. Patient was seen and examined. Objective - Vital Signs Vital signs: Vital Signs Temp 98.2 F 08/10/24 19:35 Pulse 94 08/11/24 03:40 Resp 16 08/11/24 03:40 BP 164/94 08/11/24 03:40 Pulse Ox 96 08/11/24 08:18 FiO2 Intake & Output 08/10/24 08/11/24 08/11/24 18:59 06:59 18:59 Output Total 1300 1000 Balance -1300 -1000 Weight 78 kg Output: Urine 1300 1000 Other: Voiding Method Bedside Commode - Labs CBC & Chem 7: 08/11/24 06:49 08/11/24 06:49 Labs: Abnormal Lab Results - Last 24 Hours (Table) 08/11/24 08/11/24 Range/Units 06:49 06:49 Hct 37.1 L (37.2-46.3) % MPV 9.1 L (9.5-12.2) fL Sodium 135 L (137-145) mmol/L Potassium 3.3 L (3.5-5.1) mmol/L Glucose 110 H (74-99) mg/dL Microbiology - Last 24 Hours (Table) 08/08/24 20:27 Blood Culture - Preliminary Blood
[2024-08-11] MEDS: POTASSIUM CHLORIDE ER 20 MEQ TAB.ER PO SCH (10:02)
--- NOTE | 2024-08-11 14:59 | P.PN ---
Subjective Progress Note Date: 08/11/24 I am following up with the patient and she feels she is doing well. According to the nurse her confusion has improved. Patient denies of any new neurological issues. A second opinion radiologist evaluated the MRI of the brain and he felt it could have been PRES but could not rule out stroke. Objective - Vital Signs Vital signs: Vital Signs Temp 98.2 F 08/10/24 19:35 Pulse 89 08/11/24 12:00 Resp 18 08/11/24 12:00 BP 170/107 08/11/24 12:00 Pulse Ox 96 08/11/24 12:00 FiO2 Intake & Output 08/10/24 08/11/24 08/11/24 18:59 06:59 18:59 Intake Total 218.06 Output Total 1300 1000 400 Balance -1300 -1000 -181.94 Weight 78 kg Intake: Intake, IV Titration 218.06 Amount Amiodarone 450 mg In 218.06 Dextrose 5% in Water 250 ml @ 0.5 MG/MIN 16.667 mls/hr IV .Q15H [facility] Rx#: [id number] Output: Urine 1300 1000 400 Other: Voiding Method Bedside Commode Bedside Commode - Exam General: Lying in bed and is not in acute distress. Neuro: The patient is awake, alert oriented to self, place and time. Is following simple commands. No aphasia. No facial weakness. No dysarthia. Some of the workup during this hospital visit consisted of: He had low-grade fever on presentation of 99.7 Fahrenheit and after that no further fevers. White Blood cell is 15,000 and repeated 11,000--resolved Plasma lactic vein is 5.1 and repeated is normal. Troponin is high as 0.113 I reviewed the rest of lab work-up. CT of the head is reported as no acute intracranial process. I personally reviewed the CT and agree with the report MRI of the brain is reported as increased signal within the posterior occipital lobe bilaterally. No underlying enhancement is evident. Findings are nonspecific. Finding could be related to early metastasis. Hyperintense changes can affect this region. White matter ischemic change is less likely given the focal distribution. I personally reviewed the MRI and I felt there is concern for posterior reversible encephalopathy syndrome (PRES). Addendum for the MRI is reported as additional review performed there is a high FLAIR signal in the bilateral occipital lobe right greater than left some area of petechial hemorrhage is present on the right in the cortex on the series 601 image 441 as well as evidence of high DWI low ADC signal within the cortex only in the right occipital lobe. Additional consideration should be include posterior reversible encephalopathy syndrome (PRES) versus small occipital lobe cortical infarct with petechial hemorrhage versus other etiology are felt to be less likely. No enhancing masses definitely visualized. Routine EEG is abnormal. The background slowing is suggestive of mild encephalopathy. There is no focal slowing, discharges or seizure on the EEG. - Labs CBC & Chem 7: 08/11/24 06:49 08/11/24 06:49 Labs: Abnormal Lab Results - Last 24 Hours (Table) 08/11/24 08/11/24 Range/Units 06:49 06:49 Hct 37.1 L (37.2-46.3) % MPV 9.1 L (9.5-12.2) fL Sodium 135 L (137-145) mmol/L Potassium 3.3 L (3.5-5.1) mmol/L Glucose 110 H (74-99) mg/dL Microbiology - Last 24 Hours (Table) 08/08/24 20:27 Blood Culture - Preliminary Blood Assessment and Plan Assessment: This is a 69-year-old woman with history of metastatic renal cancer who received 2 weeks of radiation therapy and is getting chemotherapy who presents to the emergency department because of altered mental status. It seems at home she had episode where eyes rolling back shaking of upper extremity with urinary incontinence with tongue bite. The she had 2 similar episodes in the past witnessed by the caregiver and during these episodes her blood pressure is brittle Likely new onset seizure. MRI Brain is reported as concerning for early brain mets in occipital region bilaterally but I felt it was more PRES (posterior reversible encephalopathy syndrome) as well second radiologist opinion felt possible PRES and could not rule out stroke Leukocytosis and low-grade fever--no further fevers. Leukocytosis is trending down. Unknown exact etiology. Unsure if it is reactive due to the seizures Slightly elevated troponin Metastatic renal cancer and received 2 weeks of radiation therapy and is getting chemotherapy and she has not completed the entire chemotherapy regimen yet Plan: I started the patient on Keppra 500 mg twice a day on 08/09/2024 and I notified the patient and her that it can cause mood/behavioral issues and if he does not develop those discontinue Keppra and consider Vimpat 50 mg twice daily Pending routine EEG With the [facility] because of seizures, avoid driving for 6 months until seizure-free, avoid heights, avoid swimming assisted or using heavy machinery Recommend a repeat MRI of the brain with and without within 3 to 4 weeks for comparison and there is improvement than likely this was PRES. I.D. team is consulted Primary team started the patient on vancomycin, cefepime. I will defer modification of the medication to primary and ID team I spoke with I.D. and we agreed to hold off lumbar puncture since unlikely meningoencephalitis. Oncology is consulted Cardiology team is consulted Defer the rest of the medical management department other specialist Upon discharge, recommend the patient to follow-up with neurologist as outpatient within 2-3 weeks. The plan is discussed with patient and her nurse. Will follow-up with patient sporadically Time with Patient: Less than 30
[2024-08-11] MEDS: CEFEPIME 2 GM in SODIUM CHLORIDE 0.9% 100 ML IVPB SCH (16:00)
--- NOTE | 2024-08-11 16:13 | P.PN ---
Subjective Progress Note Date: 08/11/24 Principal diagnosis: Reason for follow-up is fever/leukocytosis Patient is a 69-year-old female past medical history significant for Heart Failure, GERD/Reflux, Hyperlipidemia, Hypertension, Myocardial Infarction (DC), Pneumonia, Sleep Apnea/CPAP/BIPAP, Thyroid Disorder, renal cancer presenting to the hospital for evaluation of mental status changes nausea vomiting, she did have a low-grade fever with elevated white count prompting this consultation. On today's evaluation that is 08/11/2024, the patient continues to be afebrile, the patient is on room air and breathing comfortably, the Pt denies having any chest pain or cough, the patient denies having any abdominal pain no vomiting or any diarrhea, mention feeling better. Patient white count normalized to 9.52, creatinine 0.93 cultures currently pending Objective - Vital Signs Vital signs: Vital Signs Temp 98.2 F 08/10/24 19:35 Pulse 91 08/11/24 08:00 Resp 16 08/11/24 08:00 BP 184/113 08/11/24 08:00 Pulse Ox 96 08/11/24 08:18 FiO2 Intake & Output 08/10/24 08/11/24 08/11/24 18:59 06:59 18:59 Intake Total 218.06 Output Total 1300 1000 400 Balance -1300 -1000 -181.94 Weight 78 kg Intake: Intake, IV Titration 218.06 Amount Amiodarone 450 mg In 218.06 Dextrose 5% in Water 250 ml @ 0.5 MG/MIN 16.667 mls/hr IV .Q15H [facility] Rx#: [id number] Output: Urine 1300 1000 400 Other: Voiding Method Bedside Commode Bedside Commode - Exam GENERAL DESCRIPTION: An elderly female lying in bed in no distress RESPIRATORY SYSTEM: Unlabored breathing , decreased breath sounds at bases HEART: S1 S2 regular rate and rhythm , ABDOMEN: Soft , no tenderness EXTREMITIES: No edema feet - Labs CBC & Chem 7: 08/11/24 06:49 08/11/24 06:49 Labs: Abnormal Lab Results - Last 24 Hours (Table) 08/11/24 08/11/24 Range/Units 06:49 06:49 Hct 37.1 L (37.2-46.3) % MPV 9.1 L (9.5-12.2) fL Sodium 135 L (137-145) mmol/L Potassium 3.3 L (3.5-5.1) mmol/L Glucose 110 H (74-99) mg/dL Microbiology - Last 24 Hours (Table) 08/08/24 20:27 Blood Culture - Preliminary Blood Assessment and Plan (1) Fever Current Visit: Yes Status: Acute Code(s): R50.9 - FEVER, UNSPECIFIED SNOMED Code(s): 158039668 (2) Leukocytosis Current Visit: No Status: Acute Code(s): D72.829 - ELEVATED WHITE BLOOD CELL COUNT, UNSPECIFIED SNOMED Code(s): 553770894 Plan: 1patient presented to hospital with mental status changes in this patient noticed to have a low-grade fever also have elevated white count initial workup for infection etiology has been negative and negative UA CT of the chest did not show any pneumonia CT abdominal pelvis noted without any oral contrast issues fecal stasis but no evidence of any obstruction with a question of possible [employer] 2-MRI of the brain has been suggestive of Posterior reversible encephalopathy syndrome versus small right occipital infarct and could be the etiology of her mental status changes as per discussion with the neurologist hence LP was discontinued 3-patient did normalization of the white count we will continue cefepime and vancomycin while waiting for the culture to finalize Dictation was produced using [employer] dictation software. please excuse any grammatical, word or spelling errors. Time with Patient: Less than 30
[2024-08-11] MEDS: METOPROLOL SUCCINATE (ER) 25 MG TAB.ER.24H PO STA (16:15)
--- NOTE | 2024-08-11 20:26 | P.PN ---
Subjective Progress Note Date: 08/11/24 At todays visit, pt's mentation has continued to improve. Pt is A&O x 3. MRI brain concerning for PRES Objective - Vital Signs Vital signs: Vital Signs Temp 98.2 F 08/10/24 19:35 Pulse 89 08/11/24 12:00 Resp 18 08/11/24 12:00 BP 170/107 08/11/24 12:00 Pulse Ox 96 08/11/24 12:00 FiO2 Intake & Output 08/10/24 08/11/24 08/11/24 18:59 06:59 18:59 Intake Total 218.06 Output Total 1300 1000 400 Balance -1300 -1000 -181.94 Weight 78 kg Intake: Intake, IV Titration 218.06 Amount Amiodarone 450 mg In 218.06 Dextrose 5% in Water 250 ml @ 0.5 MG/MIN 16.667 mls/hr IV .Q15H [facility] Rx#: [id number] Output: Urine 1300 1000 400 Other: Voiding Method Bedside Commode Bedside Commode - Constitutional General appearance: Present: average body habitus, no acute distress - EENT Eyes: Present: anicteric sclerae, EOMI ENT: Present: hearing grossly normal - Respiratory Details: breathing is even and unlabored - Cardiovascular Details: skin warm and dry - Gastrointestinal General gastrointestinal: Present: soft. Absent: tenderness - Integumentary Integumentary: Absent: cyanotic, jaundiced - Psychiatric Psychiatric: Present: A&O x's 3 - Labs CBC & Chem 7: 08/11/24 06:49 08/11/24 06:49 Labs: Abnormal Lab Results - Last 24 Hours (Table) 08/11/24 08/11/24 Range/Units 06:49 06:49 Hct 37.1 L (37.2-46.3) % MPV 9.1 L (9.5-12.2) fL Sodium 135 L (137-145) mmol/L Potassium 3.3 L (3.5-5.1) mmol/L Glucose 110 H (74-99) mg/dL Microbiology - Last 24 Hours (Table) 08/08/24 20:27 Blood Culture - Preliminary Blood Assessment and Plan (1) Altered mental status Current Visit: Yes Status: Acute Priority: High Code(s): R41.82 - ALTERED MENTAL STATUS, UNSPECIFIED SNOMED Code(s): 289123226 (2) Dehydration Current Visit: Yes Status: Acute Priority: High Code(s): E86.0 - DEHYDRATION SNOMED Code(s): 32526855 (3) Encephalopathy Current Visit: Yes Status: Acute Code(s): G93.40 - ENCEPHALOPATHY, UNSPECIFIED SNOMED Code(s): 81078371 (4) History of renal cell carcinoma Current Visit: No Status: Chronic Priority: Medium Code(s): Z85.528 - PERSONAL HISTORY OF OTHER MALIGNANT NEOPLASM OF KIDNEY SNOMED Code(s): 181528490 Plan: Admitted with altered mental status, nausea, vomiting, diarrhea, x 1 day, concerns for dehydration. -Since admission patient has been provided with hydration, supportive medications and then started on antibiotics. Infectious disease has seen the patient -Cardiology and Neurology following - MRI brain showing concerns for PRES vs small occipital lobe cortical infarct with petechial hemorrhage. No enhancing masses visualized - Less likely immunotherapy side effect, as patient mentation has improved witho ut steroids, and brain MRI is not showing diffuse findings but more focal findings - EEG revealed background slowing suggestive of mild encephalopathy Metastatic renal cell carcinoma - Diagnosis and treatment as stated in HPI - Metastatic RCC, bone only. Treated by Orthopedic Oncology to prevent a pathological fracture rt femur. She has had radiation to the area. She was started on CTL A4/PD-L1 inhibitor treatment. She is status post 2 cycles. Last treatment was 07/17/24. Not due for treatment for little over a week. Pending patient's recovery, treatment may be delayed. Doctor attests: I performed a history and physical examination of this patient, developed impression and plan of care. Discussed with dictator. I agree with dictators note, documented as a scribe.
[2024-08-12] MEDS: METOPROLOL SUCCINATE (ER) 50 MG TAB.ER.24H PO SCH (04:14)
[2024-08-12 09:06] LABS: HCT 33.5 % (37.2-46.3); HGB 11.4 g/dL (12.0-15.0); MCH 29.7 pg (27.0-32.0); MCV 87.2 fL (80.0-97.0); Mean Platelet Volume 9.3 fL (9.5-12.2); Platelet Count 181 10*3/uL (140-440); RBC 3.84 10*6/uL (4.10-5.20); RDW 17.1 % (11.5-14.5); WBC 8.91 10*3/uL (4.50-10.00)
[2024-08-12 09:20] LABS: ALT 26 U/L (4-34); AST 24 U/L (14-36); African American GFR (CKD) >90 (>60 ml/min/1.73 sqM); Albumin 3.3 g/dL (3.5-5.0); Alkaline Phosphatase 52 U/L (38-126); Anion Gap 7 mmol/L; Blood Urea Nitrogen 9 mg/dL (7-17); Calcium 8.7 mg/dL (8.4-10.2); Carbon Dioxide 25 mmol/L (22-30); Chloride 102 mmol/L (98-107); Glucose 110 mg/dL (74-99); Non-African American GFR(CKD) 82 (>60 ml/min/1.73 sqM); Sodium 134 mmol/L (137-145); Total Protein 6.4 g/dL (6.3-8.2)
--- NOTE | 2024-08-12 17:28 | P.PN ---
Subjective Progress Note Date: 08/12/24 69-year-old female presents emergency department for altered mental status, dehydration, nausea, vomiting, diarrhea. Has a history of renal cell carcinoma is currently receiving chemo and radiation. Normally is A and O x 4. Is currently alert and oriented x 1. Began this morning. Last night patient was not feeling well however seems worse today. Patient's brought her in. She is confused, not oriented. She is alert. Is a poor historian overall. Other than the nausea, vomiting, diarrhea history from the , no other symptoms at this time. Presents for further evaluation.Patient does have a recent right hip surgery a few months ago. No acute symptoms or complications since. -EKG: Sinus rhythm with no acute ST-T wave changes. -CT chest abdomen pelvis: Fecal balls, correlate for fecal impaction of the rectum. Right renal cyst. Status post left nephrectomy. -CT brain: No acute process. -Laboratory studies: Troponin 0.108, 0.113, 0.095. WBC initially 15.2 now 11.2, hemoglobin 13.1. Venous pH 7.59, pCO2 23, bicarb 22. Potassium 3.3, creatinine 0.72. Urinalysis with moderate amount of blood and RBCs 17, urine drug screen positive for opiates, benzodiazepines and marijuana. Alcohol level less than 10, salicylate Tylenol level within normal limits. Cepheid viral panel not detected. -Home cardiac medications: Eliquis 5 mg twice daily, atorvastatin 40 mg daily, I mdur 30 mg daily, losartan 25 mg daily, metoprolol succinate 25 mg daily. -Echocardiogram performed 09/29/2023 at [facility] revealed technically suboptimal study secondary to poor echo windows. Left ventricular size and systolic function are normal. -Lexiscan Cardiolite stress test performed 09/29/2023 at [facility] revealed no reversible ischemia. -3-day event monitor performed 02/2023 revealed sinus rhythm with average heart rate of 90, minimum 66, maximum 132. SVE burden 0.01%. SVT 1 event 3 beats. PVC burden less than 0.1% with 2 total PVCs. Objective - Vital Signs Vital signs: Vital Signs Temp 98.5 F 08/12/24 07:37 Pulse 78 08/12/24 07:37 Resp 18 08/12/24 07:37 BP 158/84 08/12/24 07:37 Pulse Ox 98 08/12/24 07:37 FiO2 Intake & Output 08/11/24 08/12/24 08/12/24 18:59 06:59 18:59 Intake Total 818.06 Output Total 1200 600 Balance -381.94 -600 Weight 78 kg Intake: Intake, IV Titration 218.06 Amount Amiodarone 450 mg In 218.06 Dextrose 5% in Water 250 ml @ 0.5 MG/MIN 16.667 mls/hr IV .Q15H [facility] Rx#: [id number] Oral 600 Output: Urine 1200 600 Other: Voiding Method Bedside Commode Bedside Commode # Voids 2 - Exam General: Appears agitated and confused. HEAD: Normal with no signs of head trauma. EYES: PERRLA, EOMI, conjunctiva normal, no discharge. Pupils are 3 to 4 mm and equal bilaterally. ENT: Hearing grossly intact, normal oropharynx. RESPIRATORY: Clear breath sounds bilaterally. No wheezes, rales, or rhonchi. Increased respirations. C/V: Tachycardic with regular rhythm. S1 and S2 auscultated, no edema, perip heral pulses 2+ and intact throughout ABD: Abd is soft, nontender, nondistended EXT: Normal range of motion, no obvious deformity. Recent right hip surgical location appears well. No obvious sign of infection. SKIN: No rashes or lesions observed on exposed skin. NEURO: Alert but not oriented. Moving all 4 extremities. - Labs CBC & Chem 7: 08/12/24 08:21 08/12/24 08:21 Labs: Abnormal Lab Results - Last 24 Hours (Table) 08/12/24 08/12/24 Range/Units 08:21 08:21 RBC 3.84 L (4.10-5.20) 10*6/uL Hgb 11.4 L (12.0-15.0) g/dL Hct 33.5 L (37.2-46.3) % MPV 9.3 L (9.5-12.2) fL Sodium 134 L (137-145) mmol/L Potassium 3.0 L (3.5-5.1) mmol/L Glucose 110 H (74-99) mg/dL Albumin 3.3 L (3.5-5.0) g/dL Microbiology - Last 24 Hours (Table) 08/08/24 20:27 Blood Culture - Preliminary Blood Assessment and Plan Assessment: Elevated troponins, NSTEMI, possibly type II Metabolic encephalopathy Sepsis of unclear etiology Renal cell carcinoma on chemotherapy and radiation therapy Hypertension Dyslipidemia Typical atrial flutter with episode of RVR, converted to sinus rhythm Conversion pauses Sinus arrest with pause of 4.3 seconds Plan: Continue patient's home cardiac medications Discontinue amiodarone drip and start oral 200 mg twice daily for 1 week and then 200 mg daily Increase losartan to 50 mg daily Continue telemetry monitoring Further recommendations to follow based upon clinical course
[2024-08-12] MEDS: POTASSIUM CHLORIDE ER 20 MEQ TAB.ER PO SCH (17:33)
[2024-08-12] MEDS ORDERED: SPIRONOLACTONE 25 MG TAB PO SCH (18:45)
--- NOTE | 2024-08-12 18:52 | P.PN ---
Subjective Progress Note Date: 08/12/24 History of present illness: This is a 69-year-old female patient of Dr. Bright with past medical history of hypertension, dyslipidemia, atrial flutter, renal cell carcinoma. We have been asked to evaluate the patient for elevated troponins. Patient was brought into the hospital due to altered mental status with nausea, vomiting and diarrhea according to the ER notes. According to the patient's son, patient was confused and having falls. She then lost control of her urine and stools. She did not recognize her . Once she arrived to the hospital she was given sedation because she was combative and then she was sleeping all night. Patient states she does not remember what happened. She denies chest pain or chest discomfort. No fever or chills no cough. She denies diarrhea. According to the son, patient had 1 dose of immunotherapy for renal cell carcinoma and developed rash and the next dose was being delayed but she underwent the second transfusion last week. He is also concerned the patient is having some type of seizure activity since she started treatment as has episodes of weakness and her eyes rolled back in her head. She apparently had an episode when the visiting nurse was at the home. She is also status post 6 rounds of radiation therapy. Blood pressure 135/78, heart rate 85, pulse ox 99% on room air. Patient is status post 2 L IV fluid bolus, potassium replacement, IV antibiotics, Ativan, Seroquel and Haldol. Infectious disease, oncology and neurology are on consult. -EKG: Sinus rhythm with no acute ST-T wave changes. -CT chest abdomen pelvis: Fecal balls, correlate for fecal impaction of the rectum. Right renal cyst. Status post left nephrectomy. -CT brain: No acute process. -Laboratory studies: Troponin 0.108, 0.113, 0.095. WBC initially 15.2 now 11.2, hemoglobin 13.1. Venous pH 7.59, pCO2 23, bicarb 22. Potassium 3.3, creatinine 0.72. Urinalysis with moderate amount of blood and RBCs 17, urine drug screen positive for opiates, benzodiazepines and marijuana. Alcohol level less than 10, salicylate Tylenol level within normal limits. Cepheid viral panel not detected. -Home cardiac medications: Eliquis 5 mg twice daily, atorvastatin 40 mg daily, Imdur 30 mg daily, losartan 25 mg daily, metoprolol succinate 25 mg daily. -Cardiac catheterization performed in 2012 revealed normal coronary arteries. -Echocardiogram performed 09/29/2023 at [facility] revealed technically suboptimal study secondary to poor echo windows. Left ventricular size and systolic function are normal. -Lexiscan Cardiolite stress test performed 09/29/2023 at [facility] revealed no reversible ischemia. -3-day event monitor performed 02/2023 revealed sinus rhythm with average heart rate of 90, minimum 66, maximum 132. SVE burden 0.01%. SVT 1 event 3 beats. PVC burden less than 0.1% with 2 total PVCs. 08/10 Patient seen and examined on the cardiac stepdown unit. Patient remains in atrial flutter. She is having pauses including 1 sinus arrest at 4.3 seconds. Patient states that her chest hurts and she has a hard time breathing and feels about the same as yesterday. Patient was started on Cardizem drip last evening for the A-flutter. Heart rate in the low 100s, blood pressure 162/89, pulse ox 96% on room air. She has been afebrile. Repeat blood work reveals WBC 10.1, hemoglobin 13.5, sodium 135, potassium 3.5, creatinine 0.74. Procalcitonin less than 0.2. Echocardiogram has been obtained and report is pending. 08/11 Patient seen and examined. Yesterday patient was started on amiodarone drip and Cardizem was discontinued. Patient has converted to sinus rhythm. Blood pressure 164/94, heart rate in the 90s. Patient does have a sitter at the bedside due to a fall. Repeat blood work reveals WBC 9.5, hemoglobin 12.4, potassium 3.3, sodium 135, creatinine 0.94. Echocardiogram reveals EF 60%, mild concentric LVH. No significant valve dysfunction. 08/12/2024 Currently on p.o. amiodarone. Currently in sinus rhythm. Blood pressure is borderline elevated. Physical examination: Gen: This is 69-year-old female in no acute distress. VS: reviewed HEENT: Head is atraumatic, normocephalic. Pupils equal, round. Sclerae is anicteric. NECK: Supple. No JVD. LUNGS: Clear to auscultation. No wheezes or rhonchi. No intercostal retractions. HEART: Regular rate and rhythm. No murmur. ABDOMEN: Soft No tenderness. EXTREMITIES: No pedal edema. No calf tenderness. NEUROLOGICAL: Patient is awake, alert and oriented x3. Assessment: Elevated troponins, NSTEMI, possibly type II Metabolic encephalopathy Sepsis of unclear etiology Renal cell carcinoma on chemotherapy and radiation therapy Hypertension Dyslipidemia Typical atrial flutter with episode of RVR, converted to sinus rhythm Conversion pauses Sinus arrest with pause of 4.3 seconds Plan: oral 200 mg twice daily for 1 week (this is until 08/18/2024 ) and then 200 mg daily Continue losartan to 50 mg daily Discontinue Imdur and instead start amlodipine 5 mg daily Continue telemetry monitoring Objective - Vital Signs Vital signs: Vital Signs Temp 98.4 F 08/12/24 16:15 Pulse 75 08/12/24 16:15 Resp 16 08/12/24 16:15 BP 160/92 08/12/24 16:15 Pulse Ox 98 08/12/24 16:15 FiO2 Intake & Output 08/11/24 08/12/24 08/12/24 18:59 06:59 18:59 Intake Total 818.06 350 Output Total 1200 600 850 Balance -381.94 -600 -500 Weight 78 kg Intake: Intake, IV Titration 218.06 350 Amount Amiodarone 450 mg In 218.06 Dextrose 5% in Water 250 ml @ 0.5 MG/MIN 16.667 mls/hr IV .Q15H ZAC Rx#: [id number] Cefepime 2 gm In Sodium 100 Chloride 0.9% 100 ml @ 25 mls/hr IVPB Q12H [facility]AC Rx# :[id number] Vancomycin 1,250 mg In 250 Sodium Chloride 0.9% 250 ml @ 125 mls/hr IVPB Q12H [facility]AC Rx#:[id number] Oral 600 Output: Urine 1200 600 850 Other: Voiding Method Bedside Commode Bedside Commode # Voids 2 1 # Bowel Movements 1 - Labs CBC & Chem 7: 08/12/24 08:21 08/12/24 08:21 Labs: Abnormal Lab Results - Last 24 Hours (Table) 08/12/24 08/12/24 Range/Units 08:21 08:21 RBC 3.84 L (4.10-5.20) 10*6/uL Hgb 11.4 L (12.0-15.0) g/dL Hct 33.5 L (37.2-46.3) % MPV 9.3 L (9.5-12.2) fL Sodium 134 L (137-145) mmol/L Potassium 3.0 L (3.5-5.1) mmol/L Glucose 110 H (74-99) mg/dL Albumin 3.3 L (3.5-5.0) g/dL Microbiology - Last 24 Hours (Table) 08/08/24 20:27 Blood Culture - Preliminary Blood
[2024-08-12] MEDS: amLODIPine 5 MG TAB PO SCH (20:26)
[2024-08-13 04:37] LABS: Basophils # (A) 0.02 10*3/uL (0.00-0.10); Basophils % (A) 0.2 %; Eosinophils # (A) 0.06 10*3/uL (0.04-0.35); Eosinophils % (A) 0.7 %; HGB 12.9 g/dL (12.0-15.0); Lymphocytes # (A) 0.59 10*3/uL (0.90-5.00); Lymphocytes % (A) 6.7 %; MCH 29.4 pg (27.0-32.0); MCHC 33.1 g/dL (32.0-37.0); MCV 88.8 fL (80.0-97.0); Mean Platelet Volume 9.8 fL (9.5-12.2); Monocytes # (A) 0.92 10*3/uL (0.20-1.00); Monocytes % (A) 10.4 %; Neutrophils # (A) 7.16 10*3/uL (1.80-7.70); Neutrophils % (A) 81.2 %; Platelet Count 193 10*3/uL (140-440); RBC 4.39 10*6/uL (4.10-5.20); RDW 17.2 % (11.5-14.5); WBC 8.82 10*3/uL (4.50-10.00)
[2024-08-13] MEDS: CEFEPIME 2 GM in SODIUM CHLORIDE 0.9% 100 ML IVPB SCH (04:48)
[2024-08-13 04:54] LABS: ALT 28 U/L (4-34); AST 26 U/L (14-36); African American GFR (CKD) 83 (>60 ml/min/1.73 sqM); Albumin 3.8 g/dL (3.5-5.0); Alkaline Phosphatase 70 U/L (38-126); Anion Gap 9 mmol/L; Blood Urea Nitrogen 10 mg/dL (7-17); Calcium 9.5 mg/dL (8.4-10.2); Carbon Dioxide 27 mmol/L (22-30); Chloride 101 mmol/L (98-107); Glucose 108 mg/dL (74-99); Non-African American GFR(CKD) 72 (>60 ml/min/1.73 sqM); Potassium 3.5 mmol/L (3.5-5.1); Sodium 137 mmol/L (137-145); Total Bilirubin 0.8 mg/dL (0.2-1.3); Total Protein 6.9 g/dL (6.3-8.2)
--- NOTE | 2024-08-13 11:54 | P.PN ---
Subjective Progress Note Date: 08/13/24 History of present illness: This is a 69-year-old female patient of Dr. Bright with past medical history of hypertension, dyslipidemia, atrial flutter, renal cell carcinoma. We have been asked to evaluate the patient for elevated troponins. Patient was brought into the hospital due to altered mental status with nausea, vomiting and diarrhea according to the ER notes. According to the patient's son, patient was confused and having falls. She then lost control of her urine and stools. She did not r ecognize her . Once she arrived to the hospital she was given sedation because she was combative and then she was sleeping all night. Patient states she does not remember what happened. She denies chest pain or chest discomfort. No fever or chills no cough. She denies diarrhea. According to the son, patient had 1 dose of immunotherapy for renal cell carcinoma and developed rash and the next dose was being delayed but she underwent the second transfusion last week. He is also concerned the patient is having some type of seizure activity since she started treatment as has episodes of weakness and her eyes rolled back in her head. She apparently had an episode when the visiting nurse was at the home. She is also status post 6 rounds of radiation therapy. Blood pressure 135/78, heart rate 85, pulse ox 99% on room air. Patient is status post 2 L IV fluid bolus, potassium replacement, IV antibiotics, Ativan, Seroquel and Haldol. Infectious disease, oncology and neurology are on consult. -EKG: Sinus rhythm with no acute ST-T wave changes. -CT chest abdomen pelvis: Fecal balls, correlate for fecal impaction of the rectum. Right renal cyst. Status post left nephrectomy. -CT brain: No acute process. -Laboratory studies: Troponin 0.108, 0.113, 0.095. WBC initially 15.2 now 11.2, hemoglobin 13.1. Venous pH 7.59, pCO2 23, bicarb 22. Potassium 3.3, creatinine 0.72. Urinalysis with moderate amount of blood and RBCs 17, urine drug screen positive for opiates, benzodiazepines and marijuana. Alcohol level less than 10, salicylate Tylenol level within normal limits. Cepheid viral panel not detected. -Home cardiac medications: Eliquis 5 mg twice daily, atorvastatin 40 mg daily, Imdur 30 mg daily, losartan 25 mg daily, metoprolol succinate 25 mg daily. -Cardiac catheterization performed in 2012 revealed normal coronary arteries. -Echocardiogram performed 09/29/2023 at [facility] revealed technically suboptimal study secondary to poor echo windows. Left ventricular size and systolic function are normal. -Lexiscan Cardiolite stress test performed 09/29/2023 at [facility] revealed no reversible ischemia. -3-day event monitor performed 02/2023 revealed sinus rhythm with average heart rate of 90, minimum 66, maximum 132. SVE burden 0.01%. SVT 1 event 3 beats. PVC burden less than 0.1% with 2 total PVCs. 08/10 Patient seen and examined on the cardiac stepdown unit. Patient remains in atrial flutter. She is having pauses including 1 sinus arrest at 4.3 seconds. Patient states that her chest hurts and she has a hard time breathing and feels about the same as yesterday. Patient was started on Cardizem drip last evening for the A-flutter. Heart rate in the low 100s, blood pressure 162/89, pulse ox 96% on room air. She has been afebrile. Repeat blood work reveals WBC 10.1, hemoglobin 13.5, sodium 135, potassium 3.5, creatinine 0.74. Procalcitonin less than 0.2. Echocardiogram has been obtained and report is pending. 08/11 Patient seen and examined. Yesterday patient was started on amiodarone drip and Cardizem was discontinued. Patient has converted to sinus rhythm. Blood pressure 164/94, heart rate in the 90s. Patient does have a sitter at the bedside due to a fall. Repeat blood work reveals WBC 9.5, hemoglobin 12.4, potassium 3.3, sodium 135, creatinine 0.94. Echocardiogram reveals EF 60%, mild concentric LVH. No significant valve dysfunction. 08/12/2024 Currently on p.o. amiodarone. Currently in sinus rhythm. Blood pressure is borderline elevated. 08/13/2024 Sinus rhythm on telemetry. On p.o. amiodarone Blood pressure is borderline elevated. Physical examination: HEENT: Head is atraumatic, normocephalic. Pupils equal, round. Sclerae is anicteric. NECK: Supple. No JVD. LUNGS: Clear to auscultation. No wheezes or rhonchi. No intercostal retractions. HEART: Regular rate and rhythm. No murmur. ABDOMEN: Soft No tenderness. EXTREMITIES: No pedal edema. No calf tenderness. NEUROLOGICAL: Patient is awake, alert and oriented x3. Assessment: Elevated troponins, NSTEMI, possibly type II Metabolic encephalopathy Sepsis of unclear etiology Renal cell carcinoma on chemotherapy and radiation therapy Hypertension Dyslipidemia Typical atrial flutter with episode of RVR, converted to sinus rhythm Conversion pauses Sinus arrest with pause of 4.3 seconds, likely from conversion from atrial flutter to sinus Plan: Continue 200 mg twice daily for 1 week (this is until 08/18/2024 ) and then 200 mg daily Continue losartan to 50 mg twice daily Increase amlodipine to 10 mg daily No further pauses noticed on telemetry. Objective - Vital Signs Vital signs: Vital Signs Temp 98.5 F 08/13/24 11:48 Pulse 77 08/13/24 11:48 Resp 18 08/13/24 11:48 BP 153/94 08/13/24 11:48 Pulse Ox 97 08/13/24 11:48 FiO2 Intake & Output 08/12/24 08/13/24 08/13/24 18:59 06:59 18:59 Intake Total 350 Output Total 850 400 Balance -500 -400 Weight 78.4 kg Intake: Intake, IV Titration 350 Amount Cefepime 2 gm In Sodium 100 Chloride 0.9% 100 ml @ 25 mls/hr IVPB Q12H [facility]AC Rx# :[id number] Vancomycin 1,250 mg In 250 Sodium Chloride 0.9% 250 ml @ 125 mls/hr IVPB Q12H ZAC Rx#:[id number] Output: Urine 850 400 Other: Voiding Method Toilet # Voids 1 1 # Bowel Movements 1 1 - Labs CBC & Chem 7: 08/13/24 03:30 08/13/24 03:30 Labs: Abnormal Lab Results - Last 24 Hours (Table) 08/13/24 08/13/24 08/13/24 Range/Units 02:55 03:30 03:30 Immature Gran # 0.07 H (0.00-0.04) 10*3/uL Lymphocytes # 0.59 L (0.90-5.00) 10*3/uL Glucose 108 H (74-99) mg/dL Hemoglobin A1c (<=6.0) % Urine Osmolality 227 L (400-1100) mOsm/kg 08/13/24 Range/Units 03:30 Immature Gran # (0.00-0.04) 10*3/uL Lymphocytes # (0.90-5.00) 10*3/uL Glucose (74-99) mg/dL Hemoglobin A1c 6.2 H (<=6.0) % Urine Osmolality (400-1100) mOsm/kg
[2024-08-13] MEDS: amLODIPine 5 MG TAB PO STA (11:55)
--- NOTE | 2024-08-13 13:58 | P.PN ---
Subjective Progress Note Date: 08/13/24 Principal diagnosis: Sepsis. RCC on IO In follow-up today first thing patient said when she saw me is "can I go home". Patient denies any neurological symptoms, vision changes, headaches. She reports that she has ambulated with a walker, which is her baseline. No other acute complaints. Objective - Vital Signs Vital signs: Vital Signs Temp 98.5 F 08/13/24 11:48 Pulse 77 08/13/24 11:48 Resp 18 08/13/24 11:48 BP 153/94 08/13/24 11:48 Pulse Ox 97 08/13/24 11:48 FiO2 Intake & Output 08/12/24 08/13/24 08/13/24 18:59 06:59 18:59 Intake Total 350 Output Total 850 400 Balance -500 -400 Weight 78.4 kg Intake: Intake, IV Titration 350 Amount Cefepime 2 gm In Sodium 100 Chloride 0.9% 100 ml @ 25 mls/hr IVPB Q12H [facility]AC Rx# :[id number] Vancomycin 1,250 mg In 250 Sodium Chloride 0.9% 250 ml @ 125 mls/hr IVPB Q12H [facility]AC Rx#:[id number] Output: Urine 850 400 Other: Voiding Method Toilet # Voids 1 1 # Bowel Movements 1 1 - Constitutional General appearance: Present: average body habitus, cooperative, no acute distress - EENT Eyes: Present: anicteric sclerae ENT: Present: hearing grossly normal - Respiratory Details: Respirations unlabored at rest - Cardiovascular Details: Skin warm, well-perfused - Psychiatric Psychiatric: Present: A&O x's 3, appropriate affect, intact judgment & insight - Labs CBC & Chem 7: 08/13/24 03:30 08/13/24 03:30 Labs: Abnormal Lab Results - Last 24 Hours (Table) 08/13/24 08/13/24 08/13/24 Range/Units 02:55 03:30 03:30 Immature Gran # 0.07 H (0.00-0.04) 10*3/uL Lymphocytes # 0.59 L (0.90-5.00) 10*3/uL Glucose 108 H (74-99) mg/dL Hemoglobin A1c (<=6.0) % Urine Osmolality 227 L (400-1100) mOsm/kg 08/13/24 Range/Units 03:30 Immature Gran # (0.00-0.04) 10*3/uL Lymphocytes # (0.90-5.00) 10*3/uL Glucose (74-99) mg/dL Hemoglobin A1c 6.2 H (<=6.0) % Urine Osmolality (400-1100) mOsm/kg Assessment and Plan (1) Altered mental status Current Visit: Yes Status: Acute Priority: High Code(s): R41.82 - ALTERED MENTAL STATUS, UNSPECIFIED SNOMED Code(s): 483779331 (2) Dehydration Current Visit: Yes Status: Acute Priority: High Code(s): E86.0 - DEHYDRATION SNOMED Code(s): 96100856 (3) History of renal cell carcinoma Current Visit: No Status: Chronic Priority: Medium Code(s): Z85.528 - PERSONAL HISTORY OF OTHER MALIGNANT NEOPLASM OF KIDNEY SNOMED Code(s): 655763950 Plan: Admitted with altered mental status, nausea, vomiting, diarrhea, x 1 day, concerns for dehydration. -Since admission patient has been provided with hydration, supportive medications and then started on antibiotics. Infectious disease has seen the patient -Consult to Cardiology and Neurology -Unclear at this time if this may be an immunotherapy side effect though felt to be less likely as symptoms have improved spontaneously/with treatment of infec tion. She has cont to improve since admit. Metastatic renal cell carcinoma - Diagnosis and treatment as stated in HPI - Metastatic RCC, bone only. Treated by Orthopedic Oncology to prevent a pathol ogical fracture rt femur. She has had radiation to the area. She was started on CTL A4/PD-L1 inhibitor treatment. She is status post 2 cycles. Last treatment was 07/17/24. Not due for treatment for little over a week. Pending patient's recovery, treatment may be delayed. Patient is okay from an oncology standpoint to be discharged once she has been cleared by Attending and consulting Physicians
--- NOTE | 2024-08-13 15:42 | P.PN ---
Subjective Progress Note Date: 08/13/24 69-year-old female presents emergency department for altered mental status, dehydration, nausea, vomiting, diarrhea. Has a history of renal cell carcinoma is currently receiving chemo and radiation. Normally is A and O x 4. Is currently alert and oriented x 1. Began this morning. Last night patient was not feeling well however seems worse today. Patient's brought her in. She is confused, not oriented. She is alert. Is a poor historian overall. Other than the nausea, vomiting, diarrhea history from the , no other symptoms at this time. Presents for further evaluation.Patient does have a recent right hip surgery a few months ago. No acute symptoms or complications since. -EKG: Sinus rhythm with no acute ST-T wave changes. -CT chest abdomen pelvis: Fecal balls, correlate for fecal impaction of the rectum. Right renal cyst. Status post left nephrectomy. -CT brain: No acute process. -Laboratory studies: Troponin 0.108, 0.113, 0.095. WBC initially 15.2 now 11.2, hemoglobin 13.1. Venous pH 7.59, pCO2 23, bicarb 22. Potassium 3.3, creatinine 0.72. Urinalysis with moderate amount of blood and RBCs 17, urine drug screen positive for opiates, benzodiazepines and marijuana. Alcohol level less than 10, salicylate Tylenol level within normal limits. Cepheid viral panel not detected. -Home cardiac medications: Eliquis 5 mg twice daily, atorvastatin 40 mg daily, I mdur 30 mg daily, losartan 25 mg daily, metoprolol succinate 25 mg daily. -Echocardiogram performed 09/29/2023 at [facility] revealed technically suboptimal study secondary to poor echo windows. Left ventricular size and systolic function are normal. -Lexiscan Cardiolite stress test performed 09/29/2023 at [facility] revealed no reversible ischemia. -3-day event monitor performed 02/2023 revealed sinus rhythm with average heart rate of 90, minimum 66, maximum 132. SVE burden 0.01%. SVT 1 event 3 beats. PVC burden less than 0.1% with 2 total PVCs. 08/13/2024 Patient is seen and evaluated in room at bedside; denies any complaint of chest pain or shortness of breath; remains in normal sinus rhythm Vital signs are reviewed Lab review shows WBC of 8.8, hemoglobin of 12.9 and platelet count of 193, sodium 137, potassium 3.5, BUN/creatinine of 10/0.84 -Cardiology on board; patient converted to normal sinus rhythm; cardiology recommending to continue current dose of amiodarone 200 mg daily for 1 week followed by 200 mg daily; patient remains on losartan 50 mg twice daily; amlodipine is increased to 10 mg daily - Oncology following patient for metastatic renal cell carcinoma with bone mets; patient is currently receiving chemotherapy with next cycle due in little over a week; treatment might be delayed pending clinical course - Patient remains on cefepime and vancomycin pending final culture results; await further recommendations from ID Objective - Vital Signs Vital signs: Vital Signs Temp 98.7 F 08/13/24 07:38 Pulse 78 08/13/24 07:38 Resp 18 08/13/24 07:38 BP 160/102 08/13/24 07:38 Pulse Ox 96 08/13/24 07:38 FiO2 Intake & Output 08/12/24 08/13/24 08/13/24 18:59 06:59 18:59 Intake Total 350 Output Total 850 400 Balance -500 -400 Weight 78.4 kg Intake: Intake, IV Titration 350 Amount Cefepime 2 gm In Sodium 100 Chloride 0.9% 100 ml @ 25 mls/hr IVPB Q12H [facility] Rx# :[id number] Vancomycin 1,250 mg In 250 Sodium Chloride 0.9% 250 ml @ 125 mls/hr IVPB Q12H [facility]AC Rx#:[id number] Output: Urine 850 400 Other: Voiding Method Toilet # Voids 1 1 # Bowel Movements 1 1 - Exam General: Appears agitated and confused. HEAD: Normal with no signs of head trauma. EYES: PERRLA, EOMI, conjunctiva normal, no discharge. Pupils are 3 to 4 mm and equal bilaterally. ENT: Hearing grossly intact, normal oropharynx. RESPIRATORY: Clear breath sounds bilaterally. No wheezes, rales, or rhonchi. Increased respirations. C/V: Tachycardic with regular rhythm. S1 and S2 auscultated, no edema, p eripheral pulses 2+ and intact throughout ABD: Abd is soft, nontender, nondistended EXT: Normal range of motion, no obvious deformity. Recent right hip surgical location appears well. No obvious sign of infection. SKIN: No rashes or lesions observed on exposed skin. NEURO: Alert but not oriented. Moving all 4 extremities. - Labs CBC & Chem 7: 08/13/24 03:30 08/13/24 03:30 Labs: Abnormal Lab Results - Last 24 Hours (Table) 08/13/24 08/13/24 08/13/24 Range/Units 02:55 03:30 03:30 Immature Gran # 0.07 H (0.00-0.04) 10*3/uL Lymphocytes # 0.59 L (0.90-5.00) 10*3/uL Glucose 108 H (74-99) mg/dL Hemoglobin A1c (<=6.0) % Urine Osmolality 227 L (400-1100) mOsm/kg 08/13/24 Range/Units 03:30 Immature Gran # (0.00-0.04) 10*3/uL Lymphocytes # (0.90-5.00) 10*3/uL Glucose (74-99) mg/dL Hemoglobin A1c 6.2 H (<=6.0) % Urine Osmolality (400-1100) mOsm/kg Assessment and Plan Assessment: Elevated troponins, NSTEMI, possibly type II Metabolic encephalopathy Sepsis of unclear etiology Renal cell carcinoma on chemotherapy and radiation therapy Hypertension Dyslipidemia Typical atrial flutter with episode of RVR, converted to sinus rhythm Conversion pauses Sinus arrest with pause of 4.3 seconds Plan: Continue patient's home cardiac medications Discontinue amiodarone drip and start oral 200 mg twice daily for 1 week and then 200 mg daily Increase losartan to 50 mg daily Continue telemetry monitoring Further recommendations to follow based upon clinical course
--- NOTE | 2024-08-13 18:25 | P.PN ---
Subjective Progress Note Date: 08/12/24 Principal diagnosis: Reason for follow-up is fever/leukocytosis Patient is a 69-year-old female past medical history significant for Heart Failure, GERD/Reflux, Hyperlipidemia, Hypertension, Myocardial Infarction ([place]), Pneumonia, Sleep Apnea/CPAP/BIPAP, Thyroid Disorder, renal cancer presenting to the hospital for evaluation of mental status changes nausea vomiting, she did have a low-grade fever with elevated white count prompting this consultation. On today's evaluation that is 08/13/2023, patient did have a temperature of 98 F this morning and denies having any chills, patient is on room air and breathing comfortably no chest pain or cough, the patient did not have any nausea vomiting abdominal pain or any diarrhea. Patient white count is 8.91 creatinine 0.75, blood culture negative so far Objective - Vital Signs Vital signs: Vital Signs Temp 98.4 F 08/12/24 16:15 Pulse 75 08/12/24 16:15 Resp 16 08/12/24 16:15 BP 160/92 08/12/24 16:15 Pulse Ox 98 08/12/24 16:15 FiO2 Intake & Output 08/11/24 08/12/24 08/12/24 18:59 06:59 18:59 Intake Total 818.06 350 Output Total 1200 600 850 Balance -381.94 -600 -500 Weight 78 kg Intake: Intake, IV Titration 218.06 350 Amount Amiodarone 450 mg In 218.06 Dextrose 5% in Water 250 ml @ 0.5 MG/MIN 16.667 mls/hr IV .Q15H [facility] Rx#: [id number] Cefepime 2 gm In Sodium 100 Chloride 0.9% 100 ml @ 25 mls/hr IVPB Q12H [facility] Rx# :[id number] Vancomycin 1,250 mg In 250 Sodium Chloride 0.9% 250 ml @ 125 mls/hr IVPB Q12H [facility] Rx#:[id number] Oral 600 Output: Urine 1200 600 850 Other: Voiding Method Bedside Commode Bedside Commode # Voids 2 1 # Bowel Movements 1 - Exam GENERAL DESCRIPTION: An elderly female lying in bed in no distress RESPIRATORY SYSTEM: Unlabored breathing , decreased breath sounds at bases HEART: S1 S2 regular rate and rhythm , ABDOMEN: Soft , no tenderness EXTREMITIES: No edema feet - Labs CBC & Chem 7: 08/13/24 03:30 06/08/25 03:30 Labs: Abnormal Lab Results - Last 24 Hours (Table) 08/12/24 08/12/24 Range/Units 08:21 08:21 RBC 3.84 L (4.10-5.20) 10*6/uL Hgb 11.4 L (12.0-15.0) g/dL Hct 33.5 L (37.2-46.3) % MPV 9.3 L (9.5-12.2) fL Sodium 134 L (137-145) mmol/L Potassium 3.0 L (3.5-5.1) mmol/L Glucose 110 H (74-99) mg/dL Albumin 3.3 L (3.5-5.0) g/dL Microbiology - Last 24 Hours (Table) 08/08/24 20:27 Blood Culture - Preliminary Blood Assessment and Plan (1) Fever Current Visit: Yes Status: Acute Code(s): R50.9 - FEVER, UNSPECIFIED SNOMED Code(s): 489935301 (2) Leukocytosis Current Visit: No Status: Acute Code(s): D72.829 - ELEVATED WHITE BLOOD CELL COUNT, UNSPECIFIED SNOMED Code(s): 352837650 Plan: 1patient presented to hospital with mental status changes in this patient noticed to have a low-grade fever also have elevated white count initial workup for infection etiology has been negative and negative UA CT of the chest did not show any pneumonia CT abdominal pelvis noted without any oral contrast issues fecal stasis but no evidence of 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 please excuse any grammatical, word or spelling errors. Time with Patient: Less than 30
--- NOTE | 2024-08-13 18:26 | P.PN ---
Subjective Progress Note Date: 08/13/24 Principal diagnosis: Reason for follow-up is fever/leukocytosis Patient is a 69-year-old female past medical history significant for Heart Failure, GERD/Reflux, Hyperlipidemia, Hypertension, Myocardial Infarction ([place]), Pneumonia, Sleep Apnea/CPAP/BIPAP, Thyroid Disorder, renal cancer presenting to the hospital for evaluation of mental status changes nausea vomiting, she did have a low-grade fever with elevated white count prompting this consultation. On today's evaluation that is 08/13/2024, Patient is afebrile patient is currently on room air and denies having any shortness of breath, the patient denies any chest pain or cough, the patient denies any nausea vomiting did not have any abdominal pain and no diarrhea, patient mention doing better. Patient white count is 8.82, creatinine 0.84 Objective - Vital Signs Vital signs: Vital Signs Temp 99.0 F 08/13/24 16:34 Pulse 79 08/13/24 16:34 Resp 18 08/13/24 16:34 BP 151/86 08/13/24 16:34 Pulse Ox 99 08/13/24 16:34 FiO2 Intake & Output 08/12/24 08/13/24 08/13/24 18:59 06:59 18:59 Intake Total 350 240 Output Total 850 400 Balance -500 -160 Weight 78.4 kg Intake: Intake, IV Titration 350 Amount Cefepime 2 gm In Sodium 100 Chloride 0.9% 100 ml @ 25 mls/hr IVPB Q12H [facility] Rx# :[id number] Vancomycin 1,250 mg In 250 Sodium Chloride 0.9% 250 ml @ 125 mls/hr IVPB Q12H [facility] Rx#:[id number] Oral 240 Output: Urine 850 400 Other: Voiding Method Toilet Toilet Bedside Commode # Voids 1 1 # Bowel Movements 1 1 - Exam GENERAL DESCRIPTION: An elderly female lying in bed in no distress RESPIRATORY SYSTEM: Unlabored breathing , decreased breath sounds at bases HEART: S1 S2 regular rate and rhythm , ABDOMEN: Soft , no tenderness EXTREMITIES: No edema feet - Labs CBC & Chem 7: 08/13/24 03:30 08/13/24 03:30 Labs: Abnormal Lab Results - Last 24 Hours (Table) 08/13/24 08/13/24 08/13/24 Range/Units 02:55 03:30 03:30 Immature Gran # 0.07 H (0.00-0.04) 10*3/uL Lymphocytes # 0.59 L (0.90-5.00) 10*3/uL Glucose 108 H (74-99) mg/dL Hemoglobin A1c (<=6.0) % Urine Osmolality 227 L (400-1100) mOsm/kg 06/08/25 Range/Units 03:30 Immature Gran # (0.00-0.04) 10*3/uL Lymphocytes # (0.90-5.00) 10*3/uL Glucose (74-99) mg/dL Hemoglobin A1c 6.2 H (<=6.0) % Urine Osmolality (400-1100) mOsm/kg Assessment and Plan (1) Fever Current Visit: Yes Status: Acute Code(s): R50.9 - FEVER, UNSPECIFIED SNOMED Code(s): 061904194 (2) Leukocytosis Current Visit: No Status: Acute Code(s): D72.829 - ELEVATED WHITE BLOOD CELL COUNT, UNSPECIFIED SNOMED Code(s): 086436400 Plan: 1patient presented to hospital with mental status changes in this patient noticed to have a low-grade fever also have elevated white count initial workup for infection etiology has been negative and negative UA CT of the chest did not show any pneumonia CT abdominal pelvis noted without any oral contrast issues fecal stasis but no evidence of any obstruction 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 please excuse any grammatical, word or spelling errors. Time with Patient: Less than 30
[2024-08-14 07:41] LABS: African American GFR (CKD) >90 (>60 ml/min/1.73 sqM); Anion Gap 7 mmol/L; Blood Urea Nitrogen 8 mg/dL (7-17); Carbon Dioxide 26 mmol/L (22-30); Chloride 100 mmol/L (98-107); Glucose 110 mg/dL (74-99); Non-African American GFR(CKD) 89 (>60 ml/min/1.73 sqM); Potassium 3.1 mmol/L (3.5-5.1); Sodium 133 mmol/L (137-145)
[2024-08-14 08:35] VITALS: BP 143/90; PULSE 77; RESP 14; TEMP 98.6
--- NOTE | 2024-08-14 08:35 | P.DS ---
Providers Date of admission: 08/08/24 19:38 Attending physician: Edvin Mcdonnell Consults: 08/08/24 19:36 Consult Physician Routine Consulting Provider: Jasvir Weeks Consult Reason/Comments: encephalopathy Do you want consulting provider notified?: Yes Consult Physician Routine Consulting Provider: [facility] Consult Reason/Comments: elevated troponin Do you want consulting provider notified?: Yes Consult Physician Routine Consulting Provider: Nilesh Hays Consult Reason/Comments: history of cancer on chemo Do you want consulting provider notified?: Yes 08/09/24 11:10 Consult Physician Urgent Consulting Provider: [place] Consult Reason/Comments: leukocytosis with low grade fever Do you want consulting provider notified?: Yes Primary care physician: Edvin Mcdonnell - Discharge Diagnosis(es) (1) Dehydration Current Visit: Yes Status: Acute Priority: High (2) Elevated troponin Current Visit: Yes Status: Acute (3) Encephalopathy Current Visit: Yes Status: Acute (4) Acute kidney injury Current Visit: No Status: Acute (5) History of renal carcinoma Current Visit: No Status: Acute (6) Hypertension Current Visit: No Status: Acute Hospital Course: This is a 69-year-old female with a known history of metastatic renal cancer who originally presented to the emergency department with complaints of significant disorientation. Patient's mentation is back to baseline. She is ambulating with assistance in the room. Patient has been seen and evaluated by cardiology, neurology, infectious disease, and oncology during this admission. Neurology started patient on Keppra. Infectious diseases recommending soft and for discharge antibiotics. Patient has had some higher blood pressure readings during this admission and her medications have been adjusted. Patient will be seen in our office by the end of the week for repeat lab work. Patient seen and evaluated by nurse practitioner, physician in agreement with plan. Patient Condition at Discharge: Fair Plan - Discharge Summary Discharge Rx Participant: No New Discharge Prescriptions: New Potassium Chloride ER [K-Dur 20] 20 meq PO DAILY 30 Days #30 tab Amiodarone [Cordarone] 200 mg PO BID #60 tab Losartan [Cozaar] 50 mg PO BID #60 tab levETIRAcetam [Keppra] 500 mg PO Q12HR #60 tab amLODIPine [Norvasc] 10 mg PO DAILY #30 tab cefuroxime axetiL [Ceftin] 500 mg PO BID 5 Days #10 tab Continue ALPRAZolam [Xanax] 0.5 mg PO TID Atorvastatin [Lipitor] 40 mg PO DAILY Levothyroxine Sodium 137 mcg PO MOTUWETHFRSA Isosorbide Mononitrate ER [Imdur] 30 mg PO DAILY Ipilimumab [Yervoy] 1 dose IV Q21D Ondansetron Odt [Zofran ODT] 8 mg PO Q8HR PRN PRN Reason: Nausea Escitalopram [Lexapro] 10 mg PO DAILY Apixaban [Eliquis] 5 mg PO BID Metoprolol Succinate (ER) [Toprol XL] 25 mg PO DAILY Fesoterodine Fumarate [Fesoterodine Fumarate ER] 8 mg PO DAILY Ergocalciferol [Vitamin D2 (1250 Mcg = 33655 Iu)] 1,250 mcg PO Q14D Omeprazole [PriLOSEC] 20 mg PO DAILY Losartan [Cozaar] 25 mg PO DAILY Nivolumab [Opdivo] 1 dose IV Q21D Changed Morphine Sulfate Ir [MSIR] 15 mg PO Q6H PRN #120 tab PRN Reason: Pain Discharge Medication List ALPRAZolam [Xanax] 0.5 mg PO TID 07/08/17 [History] Atorvastatin [Lipitor] 40 mg PO DAILY 09/23/20 [History] Levothyroxine Sodium 137 mcg PO MOTUWETHFRSA 09/23/20 [History] Apixaban [Eliquis] 5 mg PO BID 09/01/22 [History] Fesoterodine Fumarate [Fesoterodine Fumarate ER] 8 mg PO DAILY 09/28/23 [History] Isosorbide Mononitrate ER [Imdur] 30 mg PO DAILY 09/28/23 [History] Metoprolol Succinate (ER) [Toprol XL] 25 mg PO DAILY 09/28/23 [History] Ergocalciferol [Vitamin D2 (1250 Mcg = 78552 Iu)] 1,250 mcg PO Q14D 04/10/24 [History] Escitalopram [Lexapro] 10 mg PO DAILY 08/08/24 [History] Ipilimumab [Yervoy] 1 dose IV Q21D 08/08/24 [History] Losartan [Cozaar] 25 mg PO DAILY 08/08/24 [History] Nivolumab [Opdivo] 1 dose IV Q21D 08/08/24 [History] Omeprazole [PriLOSEC] 20 mg PO DAILY 08/08/24 [History] Ondansetron Odt [Zofran ODT] 8 mg PO Q8HR PRN 08/08/24 [History] Amiodarone [Cordarone] 200 mg PO BID #60 tab 08/14/24 [Rx] Losartan [Cozaar] 50 mg PO BID #60 tab 08/14/24 [Rx] Morphine Sulfate Ir [MSIR] 15 mg PO Q6H PRN #120 tab 08/14/24 [Rx] Potassium Chloride ER [K-Dur 20] 20 meq PO DAILY 30 Days #30 tab 08/14/24 [Rx] amLODIPine [Norvasc] 10 mg PO DAILY #30 tab 08/14/24 [Rx] cefuroxime axetiL [Ceftin] 500 mg PO BID 5 Days #10 tab 08/14/24 [Rx] levETIRAcetam [Keppra] 500 mg PO Q12HR #60 tab 08/14/24 [Rx] Follow up Appointment(s)/Referral(s): Edvin Mcdonnell MD [Primary Care Provider] - [facility] [NON-STAFF] - Discharge Disposition: HOME WITH HOME HEALTH SERVICES
[2024-08-14] MEDS: amLODIPine 10 MG TAB PO SCH (08:40)
--- NOTE | 2024-08-14 10:26 | CDI ---
Documentation Clarification Form Date: 08/14/2024 09:59:34 AM From: Michelle Sánchez RN CCDS Phone: [phone] Admit Date: 08/08/2024 07:38:00 PM Patient Name: Annamaria Humphrey Visit Number: [id number] Discharge Date: ATTENTION: The Clinical Documentation Specialists (CDI) and [facility] Coding Staff appreciate your assistance in clarifying documentation. Please respond to the clarification below the line at the bottom and electronically sign. The CDI & [facility] Coding staff will review the response and follow-up if needed. Please note: Queries are made part of the Legal Health Record. If you have any questions, please contact the author of this message via ITS. Doctor: Edvin Mcdonnell Sepsis is documented Cardiology note, 08/13, which may lack sufficient clinical evidence/ support in the medical record. Additional clarification is requested. History/Risk Factors: 69 year old female presents to the ED with abdominal distention, nausea, vomiting and altered mental status. Medical History: HTN, HLD, GERD, Sleep Apnea and kidney cancer. 08/08, ED note Clinical Indicators: VSS, 08/08/2024: B/P 177/22, HR 108, Temp 99.7F Oral, SpO2 98% ra BMI 27.1kg LABS, 08/08/2024; Wbc 15.23, Neutrophils 12.94, Plasma Lactic Acid Yg 5.1, Blood culture, : Negative UA urinalysis, 08/08/2024: Urine color light yellow, protein 1+, Blood moderate, RBC 17, WBC 2, Urine Mucus Rare. CT chest abdomen pelvis, 08/08: Fecal balls, Correlate for fecal impaction at the rectum. Inferior pole right renal cyst. 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 2-MRI of the brain has been suggestive of Posterior reversible encephalopathy syndrome versus small right occipital infarct and could be the etiology of her mental status changes as per discussion with the neurologist hence LP was discontinued 3-patient did normalization of the white count and culture have been negative so far, patient is currently on cefepime which can be transitioned to short course of oral Ceftin on discharge Treatment: 08/08 08/11: Cefepime IVPB Q8H, 08/11 - 08/12 Cefepime IVPB Q12H, 08/13 08/14 Cefepime IVPB Q8H, 08/08 Vancomycin IVPB x 1; 08/09- 08/12 Vancomycin IVPB Q12H Please clarify if the Sepsis is: [ ] Sepsis ruled out [x ] Sepsis treated prophylactically [ ] Sepsis valid diagnosis related to [ ] Other condition, please specify [ ] Unable to determine (Template Last Reviewed: March 2023) MTDD
[2024-08-16] MEDS ORDERED: ERGOCALCIFEROL 1,250 MCG (50,000 IU) CAPSULE PO SCH (09:00)
--- NOTE | 2024-08-29 18:02 | CDI ---
Documentation Clarification Form Date: 08/29/24 From: MODESTA Nelson Admit Date: 08/08/2024 07:38:00 PM Patient Name: Annamaria Humphrey Visit Number: [id number] Discharge Date: 08/14/2024 10:07:00 AM ATTENTION: The Clinical Documentation Specialists (CDI) and [facility] Coding Staff appreciate your assistance in clarifying documentation. Please respond to the clarification below the line at the bottom and electronically sign. The CDI & [facility] Coding staff will review the response and follow-up if needed. Please note: Queries are made part of the Legal Health Record. If you have any questions, please contact the author of this message via ITS. Doctor/Provider: Edvin Mcdonnell There is documentation of altered mental status, as well as metabolic encephalopathy, throughout the chart. Additional clarification is requested. History/Risk Factors: Ms Humphrey came in with significant disorientation. She was noted to have nausea, vomiting, diarrhea and dehydration as well as a low grade fever and elevated WBCs. She has a known history of metastatic renal cancer to the bone. She has received both radiation and chemotherapy recently. Clinical Indicators: Progress notes 08/10-08/13 state MRI of the brain has been suggestive of posterior reversible encephalopathy syndrome vs small right occipital infarct and would be the etiology of her mental status changes as per discussion with the neurologist hence LP was discontinued. Progress notes also state the possibility of seizure activity and neurology started the patient on Keppra. Treatment: hydration, supportive medications, antibiotics Can you please clarify the etiology of her metabolic encephalopathy? [ ] Dehydration [x ] Posterior reversible encephalopathy syndrome [ ] Right occipital infarct [ ] Other, please specify [ ] Unable to determine (Template Last Revised: May 2020) MTDD
== END 2024-08-14 10:07 | disposition home health service (06) | DRG 70 ==
LOC: EC 16:37 → 3SCARD 19:38
PROVIDERS: ADMIT Family Medicine; ATTEND Family Medicine
DX: I67.83 Posterior reversible encephalopathy syndrome (principal); I21.A1 Myocardial infarction type 2; I63.89 Other cerebral infarction; C79.51 Secondary malignant neoplasm of bone; I48.3 Typical atrial flutter; I48.91 Unspecified atrial fibrillation; E03.9 Hypothyroidism, unspecified; E86.0 Dehydration; R56.9 Unspecified convulsions; I11.0 Hypertensive heart disease with heart failure; G93.41 Metabolic encephalopathy; F32.A Depression, unspecified; I50.9 Heart failure, unspecified; E78.5 Hyperlipidemia, unspecified; E87.6 Hypokalemia; F41.9 Anxiety disorder, unspecified; W19.XXXA Unspecified fall, initial encounter; I45.5 Other specified heart block; R29.6 Repeated falls; N28.1 Cyst of kidney, acquired; I25.2 Old myocardial infarction; Z90.5 Acquired absence of kidney; Z87.891 Personal history of nicotine dependence; Z79.899 Other long term (current) drug therapy; Z79.01 Long term (current) use of anticoagulants; Z85.528 Personal history of other malignant neoplasm of kidney; Z79.60 Long term (current) use of unspecified immunomodulators and immunosuppressants
CPT/HCPCS: 36415; 70450; 70553; 71260; 74177; 80048; 80053; 80143; 80179; 80202; 80306; 80320; 81001; 82140; 82803; 83036; 83605; 83735; 83930; 83935; 84145; 84300; 84484; 85025; 85027; 85610; 85730; 86140; 87040; 87636; 93005; 93306; 94760; 95816; 96361; 96365; 96366; 96367; 96368; 96375; 99291

== ENCOUNTER 2024-08-29 12:37 | Inpatient (IN) | payer MEDICARE ==
[2024-08-29 13:09] LABS: Glucose,Whole Blood 135 mg/dL (70-110)
--- NOTE | 2024-08-29 13:31 | ED ---
General Adult HPI - General Chief complaint: Recheck/Abnormal Lab/Rx Stated complaint: dehydrated,syncope Time Seen by Provider: 08/29/24 13:09 Source: patient, RN notes reviewed Mode of arrival: ambulatory Limitations: no limitations - History of Present Illness Initial comments: Patient is a 69-year-old female present emergency department with with concern for weakness. Patient has stage IV renal cancer. Patient is on chemotherapy. Patient has been more weak the last few days. Decreased oral intake. Visiting nurse today had concerns for dehydration and recommended she comes to the emergency department. Patient complains of generalized fatigue and not feeling well. Patient has chronic pain from bony metastasis. Patient has chronic right leg weakness from bony metastasis. While coming into the emergency department patient did have a syncopal episode. Patient has been experiencing headaches over the past week or 2, none at this time. - Related Data Home Medications Medication Instructions Recorded Confirmed ALPRAZolam [Xanax] 0.5 mg PO TID 07/08/17 08/08/24 Atorvastatin [Lipitor] 40 mg PO DAILY 09/23/20 08/08/24 Levothyroxine Sodium 137 mcg PO [id number] 09/23/20 08/08/24 Apixaban [Eliquis] 5 mg PO BID 09/01/22 08/08/24 Fesoterodine Fumarate 8 mg PO DAILY 09/28/23 08/08/24 [Fesoterodine Fumarate ER] Isosorbide Mononitrate ER [Imdur] 30 mg PO DAILY 09/28/23 08/08/24 Metoprolol Succinate (ER) [Toprol 25 mg PO DAILY 09/28/23 08/08/24 XL] Ergocalciferol [Vitamin D2 (1250 1,250 mcg PO Q14D 04/10/24 08/08/24 Mcg = 58427 Iu)] Escitalopram [Lexapro] 10 mg PO DAILY 08/08/24 08/08/24 Ipilimumab [Yervoy] 1 dose IV Q21D 08/08/24 08/08/24 Losartan [Cozaar] 25 mg PO DAILY 08/08/24 08/08/24 Nivolumab [Opdivo] 1 dose IV Q21D 08/08/24 08/08/24 Omeprazole [PriLOSEC] 20 mg PO DAILY 08/08/24 08/08/24 Ondansetron Odt [Zofran ODT] 8 mg PO Q8HR PRN 08/08/24 08/08/24 Previous Rx's Medication Instructions Recorded Amiodarone [Cordarone] 200 mg PO BID #60 tab 08/14/24 Losartan [Cozaar] 50 mg PO BID #60 tab 08/14/24 Morphine Sulfate Ir [MSIR] 15 mg PO Q6H PRN #120 tab 08/14/24 Potassium Chloride ER [K-Dur 20] 20 meq PO DAILY 30 Days #30 tab 08/14/24 amLODIPine [Norvasc] 10 mg PO DAILY #30 tab 08/14/24 cefuroxime axetiL [Ceftin] 500 mg PO BID 5 Days #10 tab 08/14/24 levETIRAcetam [Keppra] 500 mg PO Q12HR #60 tab 08/14/24 Allergies Allergy/AdvReac Type Severity Reaction Status Date / Time Sulfa (Sulfonamide Allergy Rash/Hives Verified 08/29/24 12:48 Antibiotics) NSAIDS (Non-Steroidal AdvReac NO NSAIDS Verified 08/29/24 12:48 Anti-Inflamma DUE TO ONLY 1 KIDNEY Review of Systems ROS Statement: Those systems with pertinent positive or pertinent negative responses have been documented in the HPI. ROS Other: All systems not noted in ROS Statement are negative. Constitutional: Denies: fever Eyes: Denies: eye pain ENT: Denies: ear pain Respiratory: Denies: dyspnea Cardiovascular: Denies: chest pain Endocrine: Reports: fatigue Neurological: Reports: as per HPI, headache, weakness Past Medical History Past Medical History: Cancer, Chest Pain / Angina, Heart Failure, GERD/Reflux, Hyperlipidemia, Hypertension, Myocardial Infarction (MN), Pneumonia, Sleep Apnea/CPAP/BIPAP, Thyroid Disorder Additional Past Medical History / Comment(s): "electrical heart attack", PUD, hypothyroid, low back pain, rib fx, diverticulosis dx/benign polyp, Renal/Bone Ca Last Myocardial Infarction Date:: 2012 History of Any Multi-Drug Resistant Organisms: None Reported Past Surgical History: Back Surgery, Heart Catheterization, Orthopedic Surgery, Tonsillectomy, Tubal Ligation Additional Past Surgical History / Comment(s): 2012 cardiac cath-normal x2, 01/11/17 colonoscopy/benign polypectomy, ORIF LT FT, back x2, "lt NEPHRECTOMY d/t cancer". 09/30-heart cath-clear. dehiscence of incision with kidney surgery trigger finger repair rt hand Past Anesthesia/Blood Transfusion Reactions: Postoperative Nausea & Vomiting (PONV) Additional Past Anesthesia/Blood Transfusion Reaction / Comment(s): no hx blood transfusion. Anesthesia: elevation in blood pressure, aspirated after a surgery at [facility]; Pt does not want propofol Past Psychological History: Anxiety, Depression Smoking Status: Former smoker Past Alcohol Use History: None Reported Past Drug Use History: Marijuana - Past Family History Mother Family Medical History: Hyperlipidemia Additional Family Medical History / Comment(s): Mother was healthy and lived to be 92 yrs. old. alcohol abuse Father History Unknown: Yes Family Medical History: Chest Pain / Angina General Exam Limitations: no limitations General appearance: alert Head exam: Present: normocephalic Eye exam: Present: normal appearance ENT exam: Present: mucous membranes dry Neck exam: Present: normal inspection Respiratory exam: Present: normal lung sounds bilaterally Cardiovascular Exam: Present: regular rate, normal rhythm Expanded Peripheral pulses: 2+: Radial (R), Radial (L), Dorsalis Pedis (R), Dorsalis Pedis (L) GI/Abdominal exam: Present: soft. Absent: tenderness, pulsatile mass Extremities exam: Present: normal inspection Neurological exam: Present: alert, oriented X3, CN II-XII intact. Absent: motor sensory deficit Expanded Neurological exam: Present: protecting the airway Patient oriented to: Present: person, place, time Speech: Present: fluid speech Cranial nerves: EOM's Intact: Normal Motor strength exam: RUE: 5, LUE: 5, RLE: 2/1 (Patient states chronic), LLE: 5 Eye Response: (4) open spontaneously Motor Response: (6) obeys commands Verbal Response: (5) oriented Psychiatric exam: Present: normal affect, normal mood Skin exam: Present: normal color Course Vital Signs 08/29/24 08/29/24 08/29/24 12:41 13:28 14:03 Temperature 97.2 F L Pulse Rate 88 80 75 Respiratory 22 16 16 Rate Blood Pressure 61/40 73/52 74/59 O2 Sat by Pulse 99 98 98 Oximetry 08/29/24 15:04 Temperature Pulse Rate 80 Respiratory 20 Rate Blood Pressure 111/71 O2 Sat by Pulse 97 Oximetry EKG Findings - EKG Results: EKG: interpreted by ERMD (Left axis.), sinus rhythm, normal QRS, normal ST/T Medical Decision Making - Medical Decision Making Was pt. sent in by a medical professional or institution (, [facility], INSURANCE HEALTHCARE REPRESENTATIVE, urgent care, hospital, or fpc...) When possible be specific @ -No Did you speak to anyone other than the patient for history (EMS, parent, family, police, friend...)? 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 Why? @ -I reviewed and agree with nursing and triage notes Were old charts reviewed (outside hosp., previous admission, EMS record, old EKG, old radiological studies, urgent care reports/EKG's, fpc records)? Report findings @ -No old charts were reviewed Differential Diagnosis (chest pain, altered mental status, abdominal pain women, abdominal pain men, vaginal bleeding, weakness, fever, dyspnea, syncope, headache, dizziness, GI bleed, back pain, seizure, CVA, palpatations, mental health, musculoskeletal)? @ -Differential Weakness: Hypoglycemia, shock, sepsis, hyponatremia, anemia, infection, MN, ETOH, adverse medicine reaction, overdose, stroke, this is not meant to be an all-inclusive list. EKG interpreted by me (3pts min.). @ -As above X-rays interpreted by me (1pt min.). @ -Chest x-ray without acute abnormality CT interpreted by me (1pt min.). @ -CT scan of the brain without acute abnormality U/S interpreted by me (1pt. min.). @ -None done What testing was considered but not performed or refused? (CT, X-rays, U/S, labs)? Why? @ -None What meds were considered but not given or refused? Why? @ -None Did you discuss the management of the patient with other professionals (professionals i.e. [facility] Ambrosio, INSURANCE HEALTHCARE REPRESENTATIVE, lab, RT, psych nurse, social science research assistant, hand patcher, teacher, senior officer, embedded case manager)? Give summary @ -Dr. Mcdonnell to admit his patient Was smoking cessation discussed for >3mins.? @ -No Was critical care preformed (if so, how long)? @ -31 minutes critical care time. Hypotensive Were there social determinants of health that impacted care today? How? (Homelessness, low income, unemployed, alcoholism, drug addiction, transportation, low edu. Level, literacy, decrease access to med. care, [facility], rehab)? @ -No Was there de-escalation of care discussed even if they declined (Discuss DNR or withdrawal of care, Hospice)? DNR status @ -No What co-morbidities impacted this encounter? (DM, HTN, Smoking, COPD, CAD, Cancer, CVA, ARF, Chemo, Hep., AIDS, mental health diagnosis, sleep apnea, morbid obesity)? @ -Metastatic renal disease Was patient admitted / discharged? Hospital course, mention meds given and route, prescriptions, significant lab abnormalities, going to OR and other pertinent info. @ -Patient presents with increased generalized weakness. Patient does have some dehydration and hyponatremia. Patient was hypotensive that improved with fluids. Patient reevaluated and feeling somewhat better. Patient and family updated on results and plan. Admission orders written. Undiagnosed new problem with uncertain prognosis? @ -No Drug Therapy requiring intensive monitoring for toxicity (Heparin, Nitro, Insulin, Cardizem)? @ -No Were any procedures done? @ -No Diagnosis/symptom? @ -Hypotension, hyponatremia, weakness, dehydration Acute, or Chronic, or Acute on Chronic? @ -Acute, acute, acute, acute Uncomplicated (without systemic symptoms) or Complicated (systemic symptoms)? @ -Default Side effects of treatment? @ -No Exacerbation, Progression, or Severe Exacerbation? @ -No Poses a threat to life or bodily function? How? (Chest pain, USA, MN, pneumonia, PE, COPD, DKA, ARF, appy, cholecystitis, CVA, Diverticulitis, Homicidal, Suicidal, threat to staff... and all critical care pts) @ -No - Lab Data Result diagrams: 08/29/24 13:05 08/29/24 13:05 Lab Results 08/29/24 08/29/24 08/29/24 Range/Units 13:05 13:05 13:05 WBC 7.94 (4.50-10.00) 10*3/uL RBC 4.86 (4.10-5.20) 10*6/uL Hgb 14.4 (12.0-15.0) g/dL Hct 40.4 (37.2-46.3) % MCV 83.1 D (80.0-97.0) fL MCH 29.6 (27.0-32.0) pg MCHC 35.6 (32.0-37.0) g/dL Plt Count 269 (140-440) 10*3/uL MPV 8.9 L (9.5-12.2) fL Immature Gran % (Auto) 2.6 % Neutrophils % (Manual) 67 % Band Neuts % (Manual) 12 % Lymphocytes % (Manual) 15 % Monocytes % (Manual) 4 % Metamyelocytes % 1 % Myelocytes % 1 % Immature Gran # 0.21 H (0.00-0.04) 10*3/uL Neutrophils # (Manual) 6.27 (1.3-7.7) k/uL Lymphocytes # (Manual) 1.19 (1.0-4.8) k/uL Monocytes # (Manual) 0.32 (0-1.0) k/uL Metamyelocytes # (Man) 0.08 H (0) k/uL Myelocytes # (Manual) 0.08 H (0) k/uL Nucleated RBCs 0 (0-0) /100 WBC Differential Comment P Manual Slide Review Performed PT (10.0-12.5) sec INR (<1.2) APTT (22.0-30.0) sec Sodium 123 L (137-145) mmol/L Potassium 4.3 (3.5-5.1) mmol/L Chloride 90 L (98-107) mmol/L Carbon Dioxide 21 L (22-30) mmol/L Anion Gap 12 mmol/L BUN 19 H (7-17) mg/dL Creatinine 1.59 H (0.52-1.04) mg/dL Est GFR (CKD-EPI)AfAm 38 (>60 ml/min/1.73 sqM) Est GFR (CKD-EPI)NonAf 33 (>60 ml/min/1.73 sqM) Glucose 128 H (74-99) mg/dL POC Glucose (mg/dL) (70-110) mg/dL POC Glu Touch Up Painter Hand ID Plasma Lactic Acid Yg 2.5 H* (0.7-2.0) mmol/L Calcium 9.5 (8.4-10.2) mg/dL Magnesium 1.7 (1.6-2.3) mg/dL Total Bilirubin 0.8 (0.2-1.3) mg/dL AST 27 (14-36) U/L ALT 30 (4-34) U/L Alkaline Phosphatase 104 (38-126) U/L Troponin I (0.000-0.034) ng/mL Total Protein 6.8 (6.3-8.2) g/dL Albumin 3.5 (3.5-5.0) g/dL Urine Color Urine Appearance (Clear) Urine pH (5.0-8.0) Ur Specific [place] (1.001-1.035) Urine Protein (Negative) Urine Glucose (UA) (Negative) Urine Ketones (Negative) Urine Blood (Negative) Urine Nitrite (Negative) Urine Bilirubin (Negative) Urine Urobilinogen (<2.0) mg/dL Ur Leukocyte Esterase (Negative) 08/29/24 08/29/24 08/29/24 Range/Units 13:05 13:08 14:05 WBC (4.50-10.00) 10*3/uL RBC (4.10-5.20) 10*6/uL Hgb (12.0-15.0) g/dL Hct (37.2-46.3) % MCV (80.0-97.0) fL MCH (27.0-32.0) pg MCHC (32.0-37.0) g/dL Plt Count (140-440) 10*3/uL MPV (9.5-12.2) fL Immature Gran % (Auto) % Neutrophils % (Manual) % Band Neuts % (Manual) % Lymphocytes % (Manual) % Monocytes % (Manual) % Metamyelocytes % % Myelocytes % % Immature Gran # (0.00-0.04) 10*3/uL Neutrophils # (Manual) (1.3-7.7) k/uL Lymphocytes # (Manual) (1.0-4.8) k/uL Monocytes # (Manual) (0-1.0) k/uL Metamyelocytes # (Man) (0) k/uL Myelocytes # (Manual) (0) k/uL Nucleated RBCs (0-0) /100 WBC Differential Comment Manual Slide Review PT 12.6 H (10.0-12.5) sec INR 1.2 H (<1.2) APTT 24.2 (22.0-30.0) sec Sodium (137-145) mmol/L Potassium (3.5-5.1) mmol/L Chloride (98-107) mmol/L Carbon Dioxide (22-30) mmol/L Anion Gap mmol/L BUN (7-17) mg/dL Creatinine (0.52-1.04) mg/dL Est GFR (CKD-EPI)AfAm (>60 ml/min/1.73 sqM) Est GFR (CKD-EPI)NonAf (>60 ml/min/1.73 sqM) Glucose (74-99) mg/dL POC Glucose (mg/dL) 135 H (70-110) mg/dL POC Glu Touch Up Painter Hand ID Sun Rajat Plasma Lactic Acid Yg (0.7-2.0) mmol/L Calcium (8.4-10.2) mg/dL Magnesium (1.6-2.3) mg/dL Total Bilirubin (0.2-1.3) mg/dL AST (14-36) U/L ALT (4-34) U/L Alkaline Phosphatase (38-126) U/L Troponin I <0.012 (0.000-0.034) ng/mL Total Protein (6.3-8.2) g/dL Albumin (3.5-5.0) g/dL Urine Color Urine Appearance (Clear) Urine pH (5.0-8.0) Ur Specific [place] (1.001-1.035) Urine Protein (Negative) Urine Glucose (UA) (Negative) Urine Ketones (Negative) Urine Blood (Negative) Urine Nitrite (Negative) Urine Bilirubin (Negative) Urine Urobilinogen (<2.0) mg/dL Ur Leukocyte Esterase (Negative) 08/29/24 Range/Units 15:03 WBC (4.50-10.00) 10*3/uL RBC (4.10-5.20) 10*6/uL Hgb (12.0-15.0) g/dL Hct (37.2-46.3) % MCV (80.0-97.0) fL MCH (27.0-32.0) pg MCHC (32.0-37.0) g/dL Plt Count (140-440) 10*3/uL MPV (9.5-12.2) fL Immature Gran % (Auto) % Neutrophils % (Manual) % Band Neuts % (Manual) % Lymphocytes % (Manual) % Monocytes % (Manual) % Metamyelocytes % % Myelocytes % % Immature Gran # (0.00-0.04) 10*3/uL Neutrophils # (Manual) (1.3-7.7) k/uL Lymphocytes # (Manual) (1.0-4.8) k/uL Monocytes # (Manual) (0-1.0) k/uL Metamyelocytes # (Man) (0) k/uL Myelocytes # (Manual) (0) k/uL Nucleated RBCs (0-0) /100 WBC Differential Comment Manual Slide Review PT (10.0-12.5) sec INR (<1.2) APTT (22.0-30.0) sec Sodium (137-145) mmol/L Potassium (3.5-5.1) mmol/L Chloride (98-107) mmol/L Carbon Dioxide (22-30) mmol/L Anion Gap mmol/L BUN (7-17) mg/dL Creatinine (0.52-1.04) mg/dL Est GFR (CKD-EPI)AfAm (>60 ml/min/1.73 sqM) Est GFR (CKD-EPI)NonAf (>60 ml/min/1.73 sqM) Glucose (74-99) mg/dL POC Glucose (mg/dL) (70-110) mg/dL POC Glu Touch Up Painter Hand ID Plasma Lactic Acid Yg (0.7-2.0) mmol/L Calcium (8.4-10.2) mg/dL Magnesium (1.6-2.3) mg/dL Total Bilirubin (0.2-1.3) mg/dL AST (14-36) U/L ALT (4-34) U/L Alkaline Phosphatase (38-126) U/L Troponin I (0.000-0.034) ng/mL Total Protein (6.3-8.2) g/dL Albumin (3.5-5.0) g/dL Urine Color Colorless Urine Appearance Clear (Clear) Urine pH 7.0 (5.0-8.0) Ur Specific [place] 1.004 (1.001-1.035) Urine Protein Negative (Negative) Urine Glucose (UA) Negative (Negative) Urine Ketones Negative (Negative) Urine Blood Negative (Negative) Urine Nitrite Negative (Negative) Urine Bilirubin Negative (Negative) Urine Urobilinogen <2.0 (<2.0) mg/dL Ur Leukocyte Esterase Negative (Negative) Disposition Clinical Impression: Hyponatremia Disposition: ADMITTED IP TO THIS HOSP Condition: Serious Is patient prescribed a controlled substance at d/c from ED?: No Referrals: Edvin Mcdonnell MD [Primary Care Provider] - 1-2 days Time of Disposition: 15:53
[2024-08-29] MEDS: SODIUM CHLORIDE 0.9% 1,000 ML IV STA ×2 (13:37→14:16)
[2024-08-29] MEDS: LACTATED RINGERS 1,000 ML IV ONE (13:37)
[2024-08-29 13:42] LABS: HCT 40.4 % (37.2-46.3); HGB 14.4 g/dL (12.0-15.0); MCH 29.6 pg (27.0-32.0); MCHC 35.6 g/dL (32.0-37.0); Platelet Count 269 10*3/uL (140-440); RBC 4.86 10*6/uL (4.10-5.20); RDW 15.7 % (11.5-14.5); WBC 7.94 10*3/uL (4.50-10.00)
[2024-08-29 13:52] LABS: MCV 83.1 fL (80.0-97.0)
[2024-08-29 13:55] LABS: ALT 30 U/L (4-34); AST 27 U/L (14-36); African American GFR (CKD) 38 (>60 ml/min/1.73 sqM); Albumin 3.5 g/dL (3.5-5.0); Alkaline Phosphatase 104 U/L (38-126); Anion Gap 12 mmol/L; Blood Urea Nitrogen 19 mg/dL (7-17); Calcium 9.5 mg/dL (8.4-10.2); Carbon Dioxide 21 mmol/L (22-30); Chloride 90 mmol/L (98-107); Glucose 128 mg/dL (74-99); Magnesium 1.7 mg/dL (1.6-2.3); Non-African American GFR(CKD) 33 (>60 ml/min/1.73 sqM); Potassium 4.3 mmol/L (3.5-5.1); Sodium 123 mmol/L (137-145); Total Protein 6.8 g/dL (6.3-8.2)
--- NOTE | 2024-08-29 13:59 | CT ---
EXAMINATION TYPE: CT brain wo con DATE OF EXAM: 08/29/2024 1:53 PM COMPARISON: 08/08/2024 CLINICAL INDICATION: Female, 69 years old with history of weakness, Weakness TECHNIQUE: CT of the brain is performed utilizing 3 mm thick sections through the posterior fossa and 3 mm thick sections through the remaining calvarium. Study is performed within 24 hours of arrival to the hospital. Contrast used: mL of , (none if empty) CT DLP: 1186.4 mGycm, Automated exposure control for dose reduction was used. FINDINGS: No abnormal hyperdensity is present to suggest an acute intracranial hemorrhage. No mass lesion is evident. No acute infarcts are evident. Ventricles and sulci are appropriate for the patient age. There is a retention cyst within the left maxillary sinus. Remaining paranasal sinuses and mastoid ai r cells are clear. IMPRESSION: 1. No acute intracranial process. Follow up MRI can be performed as clinically indicated. 2. Retention cyst within the left maxillary sinus. [facility], , 08/29/2024 1:57 PM
--- NOTE | 2024-08-29 14:00 | XR ---
EXAMINATION TYPE: XR chest 2V DATE OF EXAM: 08/29/2024 1:56 PM COMPARISON: 09/28/2023 CLINICAL INDICATION: Female, 69 years old with history of Weakness, TECHNIQUE: XR chest 2V view(s) obtained. FINDINGS: The heart size is normal. The pulmonary vasculature is normal. The lungs are clear. IMPRESSION: 1. No acute pulmonary process. [facility], , 08/29/2024 1:58 PM
[2024-08-29 14:24] LABS: INR 1.2 (<1.2); Partial Thromboplastin Time 24.2 sec (22.0-30.0); Prothrombin Time 12.6 sec (10.0-12.5)
[2024-08-29 14:59] LABS: Lymphocytes # (M) 1.19 k/uL (1.0-4.8); Metamyelocytes # (M) 0.08 k/uL (0); Monocytes # (M) 0.32 k/uL (0-1.0); Myelocytes # (M) 0.08 k/uL (0); Neutrophils # (M) 6.27 k/uL (1.3-7.7); Neutrophils % (M) 67 %; Total Cells Counted 200
[2024-08-29 15:12] LABS: Bilirubin,Urine Negative (Negative); Blood,Urine Negative (Negative); Color,Urine Colorless; Glucose,Urine (UA) Negative (Negative); Ketones,Urine Negative (Negative); Leukocyte Esterase,Urine Negative (Negative); Nitrite,Urine Negative (Negative); PH, Urine 7.0 (5.0-8.0); Protein,Urine Negative (Negative); Specific Gravity,Urine 1.004 (1.001-1.035); Urobilinogen,Urine <2.0 mg/dL (<2.0)
[2024-08-29] MEDS ORDERED: NALOXONE 0.4 MG/ML 1 ML VIAL IV PRN (15:54)
[2024-08-29] MEDS: SODIUM CHLORIDE 0.9% 1,000 ML IV SCH (17:25)
[2024-08-29] MEDS: MORPHINE SULFATE 4 MG/ML SYRINGE IV PRN (18:27)
[2024-08-29] MEDS ORDERED: LACTULOSE 20 GM/30 ML CUP PO PRN (18:44)
[2024-08-29] MEDS ORDERED: ONDANSETRON ODT 8 MG TAB.RAPDIS PO PRN (18:44)
[2024-08-29] MEDS: MORPHINE SULFATE IR 15 MG TABLET PO SCH (18:53)
[2024-08-29] MEDS: levETIRAcetam 500 MG TAB PO SCH (20:19)
[2024-08-29] MEDS: AMIODARONE 200 MG TAB PO SCH (20:19)
[2024-08-29] MEDS: LOSARTAN 50 MG TAB PO SCH (20:19)
[2024-08-29] MEDS: ALPRAZolam 0.5 MG TAB PO SCH (22:21)
[2024-08-30] MEDS: MORPHINE SULFATE IR 15 MG TABLET PO SCH (00:23)
[2024-08-30] MEDS: LEVOTHYROXINE 137 MCG TAB PO SCH (06:22)
[2024-08-30 08:16] LABS: African American GFR (CKD) 90 (>60 ml/min/1.73 sqM); Anion Gap 9 mmol/L; Blood Urea Nitrogen 10 mg/dL (7-17); Calcium 8.1 mg/dL (8.4-10.2); Carbon Dioxide 15 mmol/L (22-30); Chloride 93 mmol/L (98-107); Glucose 101 mg/dL (74-99); Non-African American GFR(CKD) 78 (>60 ml/min/1.73 sqM); Potassium 3.2 mmol/L (3.5-5.1)
[2024-08-30 08:26] LABS: Sodium 117 mmol/L (137-145)
[2024-08-30] MEDS: ATORVASTATIN 40 MG TAB PO SCH (08:47)
[2024-08-30] MEDS: ASPIRIN 81 MG PO SCH (08:47)
[2024-08-30] MEDS: PANTOPRAZOLE 40 MG TABLET PO SCH (08:47)
[2024-08-30] MEDS: POTASSIUM CHLORIDE ER 20 MEQ TAB.ER PO SCH (08:47)
[2024-08-30] MEDS: TROSPIUM CHLORIDE 20 MG TABLET PO SCH (08:47)
[2024-08-30] MEDS: ESCITALOPRAM 10 MG TAB PO SCH (08:47)
--- NOTE | 2024-08-30 08:50 | P.PN ---
Subjective Progress Note Date: 08/30/24 Principal diagnosis: Hyponatremia. Metastatic renal cell cancer. This is a 69-year-old white female readmitted secondary to weakness after recent treatment for metastatic renal cell carcinoma. She has developed hyponatremia this morning. I suspect element of tumor related metabolic discord. No voiding difficulty stated. The patient states she feels thirsty. Objective - Vital Signs Vital signs: Vital Signs Temp 98.3 F 08/30/24 08:00 Pulse 91 08/30/24 08:00 Resp 20 08/30/24 08:00 BP 94/59 08/30/24 08:00 Pulse Ox 92 L 08/30/24 08:00 FiO2 Intake & Output 08/29/24 08/30/24 08/30/24 18:59 06:59 18:59 Output Total 1300 Balance -1300 Weight 77.111 kg 77.111 kg Output: Urine 1300 Other: Voiding Method Indwelling Catheter # Bowel Movements 1 - Constitutional General appearance: Present: average body habitus, cooperative. Absent: disheveled - EENT Eyes: Absent: abnormal pupil - Neck Neck: Absent: lymphadenopathy - Respiratory Respiratory: bilateral: CTA - Cardiovascular Rhythm: regular Heart sounds: normal: S1, S2 Abnormal Heart Sounds: Absent: S3 Gallop - Gastrointestinal General gastrointestinal: Present: soft. Absent: tenderness - Psychiatric Psychiatric: Present: A&O x's 3 - Labs CBC & Chem 7: 08/29/24 13:05 08/30/24 07:35 Labs: Abnormal Lab Results - Last 24 Hours (Table) 08/29/24 08/29/24 08/29/24 Range/Units 13:05 13:05 13:05 MPV 8.9 L (9.5-12.2) fL Immature Gran # 0.21 H (0.00-0.04) 10*3/uL Metamyelocytes # (Man) 0.08 H (0) k/uL Myelocytes # (Manual) 0.08 H (0) k/uL PT (10.0-12.5) sec INR (<1.2) Sodium 123 L (137-145) mmol/L Potassium (3.5-5.1) mmol/L Chloride 90 L (98-107) mmol/L Carbon Dioxide 21 L (22-30) mmol/L BUN 19 H (7-17) mg/dL Creatinine 1.59 H (0.52-1.04) mg/dL Glucose 128 H (74-99) mg/dL POC Glucose (mg/dL) (70-110) mg/dL Plasma Lactic Acid Yg 2.5 H* (0.7-2.0) mmol/L Calcium (8.4-10.2) mg/dL Ur Random Sodium (40-220) mmol/L 08/29/24 08/29/24 08/29/24 Range/Units 13:08 14:05 18:08 MPV (9.5-12.2) fL Immature Gran # (0.00-0.04) 10*3/uL Metamyelocytes # (Man) (0) k/uL Myelocytes # (Manual) (0) k/uL PT 12.6 H (10.0-12.5) sec INR 1.2 H (<1.2) Sodium (137-145) mmol/L Potassium (3.5-5.1) mmol/L Chloride (98-107) mmol/L Carbon Dioxide (22-30) mmol/L BUN (7-17) mg/dL Creatinine (0.52-1.04) mg/dL Glucose (74-99) mg/dL POC Glucose (mg/dL) 135 H (70-110) mg/dL Plasma Lactic Acid Yg (0.7-2.0) mmol/L Calcium (8.4-10.2) mg/dL Ur Random Sodium <20 L (40-220) mmol/L 08/30/24 Range/Units 07:35 MPV (9.5-12.2) fL Immature Gran # (0.00-0.04) 10*3/uL Metamyelocytes # (Man) (0) k/uL Myelocytes # (Manual) (0) k/uL PT (10.0-12.5) sec INR (<1.2) Sodium 117 L* (137-145) mmol/L Potassium 3.2 L (3.5-5.1) mmol/L Chloride 93 L (98-107) mmol/L Carbon Dioxide 15 L (22-30) mmol/L BUN (7-17) mg/dL Creatinine (0.52-1.04) mg/dL Glucose 101 H (74-99) mg/dL POC Glucose (mg/dL) (70-110) mg/dL Plasma Lactic Acid Yg (0.7-2.0) mmol/L Calcium 8.1 L (8.4-10.2) mg/dL Ur Random Sodium (40-220) mmol/L Assessment and Plan (1) Hyponatremia Current Visit: Yes Status: Acute Code(s): E87.1 - HYPO-OSMOLALITY AND HYPONATREMIA SNOMED Code(s): 76180901 (2) History of renal cell carcinoma Current Visit: No Status: Chronic Priority: Medium Code(s): Z85.528 - PERSONAL HISTORY OF OTHER MALIGNANT NEOPLASM OF KIDNEY SNOMED Code(s): 795433487 Plan: Check CBC and CMP in AM. Ask nephrology to see. Prognosis is guarded secondary to multiple comorbidities. Pain control. Weakness. PT?
[2024-08-30] MEDS: ISOSORBIDE MONONITRATE ER 30 MG TAB.ER.24H PO SCH (08:51)
[2024-08-30] MEDS: METOPROLOL SUCCINATE (ER) 25 MG TAB.ER.24H PO SCH (08:51)
[2024-08-30] MEDS: amLODIPine 10 MG TAB PO SCH (08:51)
[2024-08-30 11:46] LABS: Basophils # (A) 0.01 X 10*3/uL (0.00-0.10); Basophils % (A) 0.1 %; Eosinophils # (A) 0.02 X 10*3/uL (0.04-0.35); Eosinophils % (A) 0.2 %; HCT 33.6 % (37.2-46.3); HGB 11.3 g/dL (12.0-15.0); Immature Grans, Automated 2.20 %; Lymphocytes # (A) 0.46 X 10*3/uL (0.90-5.00); Lymphocytes % (A) 4.9 %; MCH 28.7 pg (27.0-32.0); MCHC 33.6 g/dL (32.0-37.0); MCV 85.3 FL (80.0-97.0); Monocytes # (A) 0.28 X 10*3/uL (0.20-1.00); Monocytes % (A) 3.0 %; NRBC Per 100 WBC 0 X 10*3/uL (0.00-0.01); Neutrophils # (A) 8.33 X 10*3/uL (1.80-7.70); Neutrophils % (A) 89.6 %; Platelet Count 180 X 10*3/uL (140-440); RBC 3.94 X 10*6/uL (4.10-5.20); RDW 15.4 % (11.5-14.5); WBC 9.30 X 10*3/uL (4.50-10.00)
[2024-08-30] MEDS: SODIUM CHLORIDE TAB 1 GM TAB PO STA (11:58)
--- NOTE | 2024-08-30 14:34 | P.NPCON ---
History of Present Illness - Reason for Consult hyponatremia - History of Present Illness patient is a 69-year-old female with history of stage IV renal cell cancer with bone metastasis, maintained on chemotherapy. Patient states her last chemotherapy was about 5 days ago. Since then she has been feeling quite weak with increased fatigue. No significant nausea or vomiting however patient has had decreased oral intake. Serum sodium was noted to be low at 123. Patient was started on IV fluids and sodium dropped to 117. No previous history of hyponatremia. Blood pressure has been low urine osmolality 322 and random urine sodium was less than 20 Past Medical History Past Medical History: Cancer, Chest Pain / Angina, Heart Failure, GERD/Reflux, Hyperlipidemia, Hypertension, Myocardial Infarction ([place]), Pneumonia, Sleep Apnea/CPAP/BIPAP, Thyroid Disorder Additional Past Medical History / Comment(s): "electrical heart attack", PUD, hypothyroid, low back pain, rib fx, diverticulosis dx/benign polyp, Renal/Bone Ca Last Myocardial Infarction Date:: 2012 History of Any Multi-Drug Resistant Organisms: None Reported Past Surgical History: Back Surgery, Heart Catheterization, Orthopedic Surgery, Tonsillectomy, Tubal Ligation Additional Past Surgical History / Comment(s): 2012 cardiac cath-normal x2, 01/11/17 colonoscopy/benign polypectomy, ORIF LT FT, back x2, "lt NEPHRECTOMY d/t cancer". 09/30-heart cath-clear. dehiscence of incision with kidney surgery trigger finger repair rt hand Past Anesthesia/Blood Transfusion Reactions: Postoperative Nausea & Vomiting (PONV) Additional Past Anesthesia/Blood Transfusion Reaction / Comment(s): no hx blood transfusion. Anesthesia: elevation in blood pressure, aspirated after a surgery at [facility]; Pt does not want propofol Past Psychological History: Anxiety, Depression Additional Psychological History / Comment(s): and lives with the . Does not work outside of the home. Has pet dogs at home Smoking Status: Former smoker Past Alcohol Use History: None Reported Additional Past Alcohol Use History / Comment(s): Pt started smoking in 1971 smoked <1 ppd and quit may 2017 - Past Family History Mother Family Medical History: Hyperlipidemia Additional Family Medical History / Comment(s): Mother was healthy and lived to be 92 yrs. old. alcohol abuse Father History Unknown: Yes Family Medical History: Chest Pain / Angina Medications and Allergies Home Medications Medication Instructions Recorded Confirmed Type ALPRAZolam [Xanax] 0.5 mg PO TID 07/08/17 08/29/24 History Atorvastatin [Lipitor] 40 mg PO DAILY 09/23/20 08/29/24 History Levothyroxine Sodium 137 mcg PO MOTUWETHFRSA 09/23/20 08/29/24 History Apixaban [Eliquis] 5 mg PO BID 09/01/22 08/29/24 History Fesoterodine Fumarate 8 mg PO DAILY 09/28/23 08/29/24 History [Fesoterodine Fumarate ER] Isosorbide Mononitrate ER [Imdur] 30 mg PO DAILY 09/28/23 08/29/24 History Metoprolol Succinate (ER) [Toprol 25 mg PO DAILY 09/28/23 08/29/24 History XL] Ergocalciferol [Vitamin D2 (1250 1,250 mcg PO INGRAM 04/10/24 08/29/24 History Mcg = 72293 Iu)] Escitalopram [Lexapro] 10 mg PO DAILY 08/08/24 08/29/24 History Ipilimumab [Yervoy] 1 dose IV Q21D 08/08/24 08/29/24 History Nivolumab [Opdivo] 1 dose IV Q21D 08/08/24 08/29/24 History Omeprazole [PriLOSEC] 20 mg PO DAILY 08/08/24 08/29/24 History Ondansetron Odt [Zofran ODT] 8 mg PO Q8HR PRN 08/08/24 08/29/24 History Amiodarone [Cordarone] 200 mg PO BID #60 tab 08/14/24 08/29/24 Rx Losartan [Cozaar] 50 mg PO BID #60 tab 08/14/24 08/29/24 Rx Potassium Chloride ER [K-Dur 20] 20 meq PO DAILY 30 Days #30 tab 08/14/24 08/29/24 Rx amLODIPine [Norvasc] 10 mg PO DAILY #30 tab 08/14/24 08/29/24 Rx levETIRAcetam [Keppra] 500 mg PO Q12HR #60 tab 08/14/24 08/29/24 Rx Aspirin EC [Ecotrin Low Dose] 81 mg PO DAILY 08/29/24 08/29/24 History Lactulose 10 gm PO BID PRN 08/29/24 08/29/24 History Morphine Sulfate Ir [MSIR] 15 mg PO Q6H 08/29/24 08/29/24 History calcitrioL [Rocaltrol] 0.25 mcg PO DAILY 08/29/24 08/29/24 History Allergies Allergy/AdvReac Type Severity Reaction Status Date / Time fentanyl Allergy Unknown Verified 08/29/24 15:57 Sulfa (Sulfonamide Allergy Rash/Hives Verified 08/29/24 15:57 Antibiotics) NSAIDS (Non-Steroidal AdvReac NO NSAIDS Verified 08/29/24 15:57 Anti-Inflamma DUE TO ONLY 1 KIDNEY Physical Exam Vitals: Vital Signs Temp Pulse Pulse Resp BP BP Pulse Ox 08/30/24 12:29 97.9 F 105 H 20 91/60 92 L 08/30/24 08:00 98.3 F 91 20 94/59 92 L 08/30/24 06:28 94/69 08/30/24 01:43 98.3 F 75 16 100/70 94 L 08/30/24 00:26 80 98/62 08/29/24 21:25 98.2 F 73 16 108/74 96 08/29/24 21:06 97.9 F 96 16 110/65 96 08/29/24 20:20 98 F 75 16 97/65 98 08/29/24 19:28 98.1 F 79 16 102/76 95 08/29/24 18:26 75 20 111/72 96 08/29/24 17:26 80 20 87/58 96 08/29/24 15:04 80 20 111/71 97 Intake and Output 08/29/24 08/30/24 08/30/24 22:59 06:59 14:59 Output Total 1300 1050 Balance -1300 -1050 Output: Urine 1300 1050 Other: Voiding Method Indwelling Catheter Indwelling Catheter # Bowel Movements 1 1 Weight 77.111 kg patient is awake, comfortable, no acute distress Examination of the heart S1 and S2 Examination of the lungs bilateral breath sounds are heard Abdomen is soft nontender Examination of lower extremity shows no significant edema. Results - Lab Results Most recent lab results Calcium 8.1 mg/dL (8.4-10.2) L 08/30/24 07:35 Magnesium 1.7 mg/dL (1.6-2.3) 08/29/24 13:05 08/30/24 07:35 08/30/24 07:35 Assessment and Plan Assessment: 1. Hyponatremia, appears euvolemic currently. Possible component of hypovolemia initially. Serum sodium has worsened with saline administration suggesting possible underlying SIADH. I will DC the normal saline infusion and patient was given 1 dose of sodium chloride tab. Urine sodium less than 20 and urine osmolality at 320 to 2. Hypokalemia secondary to decreased oral intake 3. Non-gap metabolic acidosis most likely related to saline infusion. No reports of diarrhea. Plan: DC normal saline Replace potassium Sodium chloride tab 1 Repeat sodium level in 3-4 hours Patient is encouraged to increase oral protein intake Check TSH Hold antihypertensive medications due to hypotension Check bladder scan rule out urine retention. Next Thank you for the consultation. We will continue to follow the patient with you during her hospitalization.
[2024-08-30] MEDS: POTASSIUM CHLORIDE ER 20 MEQ TAB.ER PO STA (15:43)
[2024-08-31] MEDS: SODIUM CHLORIDE TAB 1 GM TAB PO STA (00:52)
--- NOTE | 2024-08-31 07:49 | P.CONS ---
History of Present Illness - Reason for Consult Consult date: 08/31/24 RCC Requesting physician: Adilson Bethea - Chief Complaint weakness - History of Present Illness Ms. Burt is 69-year-old female pt of Dr. Hays with a history of renal cell c arcinoma in 2018, treated with left nephrectomy, no systemic treatment and has been following with Dr. Collins for the same. In Apr 2024 she had been having increasing right hip pain and difficulty bearing weight on her right lower extremity, also reported intermittent right sided chest pain over the previous 2 to 3 weeks. MRI of right femur/thigh showed intraosseous mass in the subtrochanteric and intertrochanteric region of the right femur measuring 59 x 37mm. Some ill-defined bone marrow enhancement that extends up to 5.4 cm inferiorly. No evidence of fracture. No evidence for lymphadenopathy or other suspicious lesion. CTA was negative for PE, no adenopathy or mass lesion. CTAP and bone scan were also negative for any site of disease. It was felt that the bone lesion represented isolated metastases from RCC. Referral to orthopedic oncology at [facility], CT-guided biopsy and embolization 04/27/2024 followed by debridement and prophylactic intramedullary nail placement, biopsy consistent with RCC, clear-cell type. She was referred to radiation oncology for treatment of the same. Systemic treatment recommended for metastatic disease. Patient was started on dual CTL A4/PD-L1 inhibitor treatment. She is status post 3 cycles. She had vision loss after her first cycle, stat MRI of the brain was negative. She was referred to ophthalmology, steroid taper ini tiated, eye complaints resolved. She had her second cycle 07/17/2024. She had done well initially, but was hospitalized for n/v/d, and dehydration. At her last f/u she began complaining of recurrent visual disturbances with blurred vision. Plan for now was to hold treatment until evaluated by ophthalmology, and once the etiology of the eye symptoms has been determined, and these have been treated adequately, treatment will be restarted with single agent opdivo. If she tolerates that well, TKI will be added. Patient represented to the emergency room with complaints of weakness. She said she was being evaluated by her home nurse who was concerned patient was dehydrated and advised her to come to the ER for further evaluation. Patient reports prior to admission she was having worsening diarrhea. Complaining of blurred vision as well as headache. CT brain without contrast was negative for acute intracranial processes. Chest x-ray showed no acute cardiopulmonary processes. Labs reviewed, WBC 7.9, hemoglobin 14.4, platelets 269,000. Creatinine on admit elevated at 1.59, GFR 33 lactic acid 2.5. Kidney function improving today with creatinine 0.79, GFR 78. Sodium on admit 123 today 117, nephrology has been consulted. Bilirubin and LFTs WNL. Review of Systems 10 point ROS is negative except as stated in the HPI Past Medical History Past Medical History: Cancer, Chest Pain / Angina, Heart Failure, GERD/Reflux, Hyperlipidemia, Hypertension, Myocardial Infarction ([place]), Pneumonia, Sleep Apnea/CPAP/BIPAP, Thyroid Disorder Additional Past Medical History / Comment(s): "electrical heart attack", PUD, hypothyroid, low back pain, rib fx, diverticulosis dx/benign polyp, Renal/Bone Ca Last Myocardial Infarction Date:: 2012 History of Any Multi-Drug Resistant Organisms: None Reported Past Surgical History: Back Surgery, Heart Catheterization, Orthopedic Surgery, Tonsillectomy, Tubal Ligation Additional Past Surgical History / Comment(s): 2012 cardiac cath-normal x2, 01/11/17 colonoscopy/benign polypectomy, ORIF LT FT, back x2, "lt NEPHRECTOMY d/t cancer". 09/30-heart cath-clear. dehiscence of incision with kidney surgery trigger finger repair rt hand Past Anesthesia/Blood Transfusion Reactions: Postoperative Nausea & Vomiting (PONV) Additional Past Anesthesia/Blood Transfusion Reaction / Comm: no hx blood transfusion. Anesthesia: elevation in blood pressure, aspirated after a surgery at [facility]; Pt does not want propofol Past Psychological History: Anxiety, Depression Additional Psychological History / Comment(s): and lives with the . Does not work outside of the home. Has pet dogs at home Smoking Status: Former smoker Past Alcohol Use History: None Reported Additional Past Alcohol Use History / Comment(s): Pt started smoking in 1971 smoked <1 ppd and quit may 2017 - Past Family History Mother Family Medical History: Hyperlipidemia Additional Family Medical History / Comment(s): Mother was healthy and lived to be 92 yrs. old. alcohol abuse Father History Unknown: Yes Family Medical History: Chest Pain / Angina Medications and Allergies Home Medications Medication Instructions Recorded Confirmed Type ALPRAZolam [Xanax] 0.5 mg PO TID 07/08/17 08/29/24 History Atorvastatin [Lipitor] 40 mg PO DAILY 09/23/20 08/29/24 History Levothyroxine Sodium 137 mcg PO MOTUWETHFRSA 09/23/20 08/29/24 History Apixaban [Eliquis] 5 mg PO BID 09/01/22 08/29/24 History Fesoterodine Fumarate 8 mg PO DAILY 09/28/23 08/29/24 History [Fesoterodine Fumarate ER] Isosorbide Mononitrate ER [Imdur] 30 mg PO DAILY 09/28/23 08/29/24 History Metoprolol Succinate (ER) [Toprol 25 mg PO DAILY 09/28/23 08/29/24 History XL] Ergocalciferol [Vitamin D2 (1250 1,250 mcg PO INGRAM 04/10/24 08/29/24 History Mcg = [id number] Iu)] Escitalopram [Lexapro] 10 mg PO DAILY 08/08/24 08/29/24 History Ipilimumab [Yervoy] 1 dose IV Q21D 08/08/24 08/29/24 History Nivolumab [Opdivo] 1 dose IV Q21D 08/08/24 08/29/24 History Omeprazole [PriLOSEC] 20 mg PO DAILY 08/08/24 08/29/24 History Ondansetron Odt [Zofran ODT] 8 mg PO Q8HR PRN 08/08/24 08/29/24 History Amiodarone [Cordarone] 200 mg PO BID #60 tab 08/14/24 08/29/24 Rx Losartan [Cozaar] 50 mg PO BID #60 tab 08/14/24 08/29/24 Rx Potassium Chloride ER [K-Dur 20] 20 meq PO DAILY 30 Days #30 tab 08/14/24 08/29/24 Rx amLODIPine [Norvasc] 10 mg PO DAILY #30 tab 08/14/24 08/29/24 Rx levETIRAcetam [Keppra] 500 mg PO Q12HR #60 tab 08/14/24 08/29/24 Rx Aspirin EC [Ecotrin Low Dose] 81 mg PO DAILY 08/29/24 08/29/24 History Lactulose 10 gm PO BID PRN 08/29/24 08/29/24 History Morphine Sulfate Ir [MSIR] 15 mg PO Q6H 08/29/24 08/29/24 History calcitrioL [Rocaltrol] 0.25 mcg PO DAILY 08/29/24 08/29/24 History Allergies Allergy/AdvReac Type Severity Reaction Status Date / Time fentanyl Allergy Unknown Verified 08/29/24 15:57 Sulfa (Sulfonamide Allergy Rash/Hives Verified 08/29/24 15:57 Antibiotics) NSAIDS (Non-Steroidal AdvReac NO NSAIDS Verified 08/29/24 15:57 Anti-Inflamma DUE TO ONLY 1 KIDNEY Physical Exam Vitals: Vital Signs Temp Pulse Pulse Resp BP BP Pulse Ox 08/30/24 08:00 98.3 F 91 20 94/59 92 L 08/30/24 06:28 94/69 08/30/24 01:43 98.3 F 75 16 100/70 94 L 08/30/24 00:26 80 98/62 08/29/24 21:25 98.2 F 73 16 108/74 96 08/29/24 21:06 97.9 F 96 16 110/65 96 08/29/24 20:20 98 F 75 16 97/65 98 08/29/24 19:28 98.1 F 79 16 102/76 95 08/29/24 18:26 75 20 111/72 96 08/29/24 17:26 80 20 87/58 96 08/29/24 15:04 80 20 111/71 97 08/29/24 14:03 75 16 74/59 98 08/29/24 13:28 80 16 73/52 98 08/29/24 12:41 97.2 F L 88 22 61/40 99 Intake and Output 08/29/24 08/30/24 08/30/24 22:59 06:59 14:59 Output Total 1300 Balance -1300 Output: Urine 1300 Other: Voiding Method Indwelling Catheter # Bowel Movements 1 Weight 77.111 kg - Constitutional General appearance: average body habitus, no acute distress - EENT Eyes: anicteric sclerae, EOMI ENT: hearing grossly normal - Respiratory Respiratory: bilateral: CTA - Cardiovascular Rhythm: regular - Integumentary Integumentary: no cyanotic, no jaundiced - Musculoskeletal Musculoskeletal: generalized weakness - Psychiatric Psychiatric: A&O x's 3 Results CBC & Chem 7: 08/30/24 07:35 08/30/24 14:52 Labs: Abnormal Lab Results - Last 24 Hours (Table) 08/29/24 08/29/24 08/29/24 Range/Units 13:05 13:05 13:05 MPV 8.9 L (9.5-12.2) fL Immature Gran # 0.21 H (0.00-0.04) 10*3/uL Metamyelocytes # (Man) 0.08 H (0) k/uL Myelocytes # (Manual) 0.08 H (0) k/uL PT (10.0-12.5) sec INR (<1.2) Sodium 123 L (137-145) mmol/L Potassium (3.5-5.1) mmol/L Chloride 90 L (98-107) mmol/L Carbon Dioxide 21 L (22-30) mmol/L BUN 19 H (7-17) mg/dL Creatinine 1.59 H (0.52-1.04) mg/dL Glucose 128 H (74-99) mg/dL POC Glucose (mg/dL) (70-110) mg/dL Plasma Lactic Acid Yg 2.5 H* (0.7-2.0) mmol/L Calcium (8.4-10.2) mg/dL Ur Random Sodium (40-220) mmol/L 08/29/24 08/29/24 08/29/24 Range/Units 13:08 14:05 18:08 MPV (9.5-12.2) fL Immature Gran # (0.00-0.04) 10*3/uL Metamyelocytes # (Man) (0) k/uL Myelocytes # (Manual) (0) k/uL PT 12.6 H (10.0-12.5) sec INR 1.2 H (<1.2) Sodium (137-145) mmol/L Potassium (3.5-5.1) mmol/L Chloride (98-107) mmol/L Carbon Dioxide (22-30) mmol/L BUN (7-17) mg/dL Creatinine (0.52-1.04) mg/dL Glucose (74-99) mg/dL POC Glucose (mg/dL) 135 H (70-110) mg/dL Plasma Lactic Acid Yg (0.7-2.0) mmol/L Calcium (8.4-10.2) mg/dL Ur Random Sodium <20 L (40-220) mmol/L 0625/25 Range/Units 07:35 MPV (9.5-12.2) fL Immature Gran # (0.00-0.04) 10*3/uL Metamyelocytes # (Man) (0) k/uL Myelocytes # (Manual) (0) k/uL PT (10.0-12.5) sec INR (<1.2) Sodium 117 L* (137-145) mmol/L Potassium 3.2 L (3.5-5.1) mmol/L Chloride 93 L (98-107) mmol/L Carbon Dioxide 15 L (22-30) mmol/L BUN (7-17) mg/dL Creatinine (0.52-1.04) mg/dL Glucose 101 H (74-99) mg/dL POC Glucose (mg/dL) (70-110) mg/dL Plasma Lactic Acid Yg (0.7-2.0) mmol/L Calcium 8.1 L (8.4-10.2) mg/dL Ur Random Sodium (40-220) mmol/L Chest x-ray: report reviewed CT Scan - head: report reviewed Assessment and Plan (1) Renal cell carcinoma Current Visit: Yes Status: Acute Code(s): C64.9 - MALIGNANT NEOPLASM OF UNSP KIDNEY, EXCEPT RENAL PELVIS SNOMED Code(s): 340443558 (2) Hyponatremia Current Visit: Yes Status: Acute Code(s): E87.1 - HYPO-OSMOLALITY AND HYPONATREMIA SNOMED Code(s): 91270441 (3) Acute kidney injury Current Visit: Yes Status: Acute Code(s): N17.9 - ACUTE KIDNEY FAILURE, UNSPECIFIED SNOMED Code(s): 00132902 (4) Dehydration Current Visit: Yes Status: Acute Code(s): E86.0 - DEHYDRATION SNOMED Code(s): 40780858 Plan: Dehydration, diarrhea, LAUREL Admitted with diarrhea, dehydration, weakness, and hyponatremia -Kidney function improving with hydration. -Sodium 117 today. Sodium supplementation ordered -Nephrology following -Stool studies ordered to r/o infectious etiology -PT consulted Metastatic renal cell carcinoma - Diagnosis and treatment as stated in HPI - Metastatic RCC, bone only. Treated by Orthopedic Oncology to prevent a pathological fracture rt femur. She has had radiation to the area. - She was started on dual immunotherapy, with Opdivo/yervoy. S/p cycle 3 on 08/21 - Due to recurrent visual disturbances, plan for now was to hold treatment until evaluated by ophthalmology, and once the etiology of the eye symptoms has been determined, and these have been treated adequately, treatment will be restarted with single agent opdivo. If she tolerates that well, TKI will be added. -Consult to ophthalmology placed. If unable to evaluate inpt, will set up outpt referral Doctor attests: I performed a history and physical examination of this patient, developed impression and plan of care. Discussed with dictator. I agree with dictators note, documented as a scribe.
[2024-08-31] MEDS: MORPHINE SULFATE IR 15 MG TABLET PO SCH (08:20)
--- NOTE | 2024-08-31 08:45 | P.PN ---
Subjective Progress Note Date: 08/31/24 This is a 69-year-old female with a known history of metastatic renal cell carcinoma who presented to the emergency department with hyponatremia. Sodium is slowly improving. Patient reports she is still feeling fatigued today. Nephrology and oncology are on consult. Objective - Vital Signs Vital signs: Vital Signs Temp 98.0 F 08/31/24 07:00 Pulse 104 H 08/31/24 07:00 Resp 16 08/31/24 07:00 BP 105/69 08/31/24 07:00 Pulse Ox 92 L 08/31/24 07:00 FiO2 Intake & Output 08/30/24 08/31/24 08/31/24 18:59 06:59 18:59 Output Total 1850 1600 Balance -1850 -1600 Output: Urine 1850 1600 Other: Voiding Method Indwelling Catheter Indwelling Catheter # Bowel Movements 1 4 - Constitutional General appearance: Present: cooperative, no acute distress - EENT Eyes: Present: PERRLA - Neck Neck: Present: normal ROM. Absent: lymphadenopathy, rigidity - Respiratory Respiratory: bilateral: CTA - Cardiovascular Heart sounds: normal: S1, S2 - Gastrointestinal General gastrointestinal: Present: soft. Absent: tenderness - Integumentary Integumentary: Present: normal, normal turgor - Musculoskeletal Musculoskeletal: Present: generalized weakness - Psychiatric Psychiatric: Present: A&O x's 3 - Labs CBC & Chem 7: 08/30/24 07:35 08/30/24 14:52 Labs: Abnormal Lab Results - Last 24 Hours (Table) 08/29/24 08/30/24 08/30/24 Range/Units 13:05 07:35 14:52 RBC 3.94 L (4.10-5.20) X 10*6/uL Hgb 11.3 L (12.0-15.0) g/dL Hct 33.6 L (37.2-46.3) % RDW 15.4 H (11.5-14.5) % MPV 8.6 L (9.5-12.2) FL Immature Gran # 0.20 H (0.00-0.04) X 10*3/uL Neutrophils # 8.33 H (1.80-7.70) X 10*3/uL Lymphocytes # 0.46 L (0.90-5.00) X 10*3/uL Eosinophils # 0.02 L (0.04-0.35) X 10*3/uL Sodium 120 L (137-145) mmol/L Osmolality 270 L (275-295) mOsm/kg Stool Lactoferrin (Negative) 08/30/24 Range/Units 20:44 RBC (4.10-5.20) X 10*6/uL Hgb (12.0-15.0) g/dL Hct (37.2-46.3) % RDW (11.5-14.5) % MPV (9.5-12.2) FL Immature Gran # (0.00-0.04) X 10*3/uL Neutrophils # (1.80-7.70) X 10*3/uL Lymphocytes # (0.90-5.00) X 10*3/uL Eosinophils # (0.04-0.35) X 10*3/uL Sodium (137-145) mmol/L Osmolality (275-295) mOsm/kg Stool Lactoferrin Positive A (Negative) Assessment and Plan (1) Hyponatremia Current Visit: Yes Status: Acute Code(s): E87.1 - HYPO-OSMOLALITY AND HYPONATREMIA SNOMED Code(s): 08879657 (2) Renal cell carcinoma Current Visit: Yes Status: Acute Code(s): C64.9 - MALIGNANT NEOPLASM OF UNSP KIDNEY, EXCEPT RENAL PELVIS SNOMED Code(s): 168193132 (3) History of anxiety Current Visit: No Status: Acute Code(s): Z86.59 - PERSONAL HISTORY OF OTHER MENTAL AND BEHAVIORAL DISORDERS SNOMED Code(s): 399282154 (4) Hypertension Current Visit: No Status: Acute Code(s): I10 - ESSENTIAL (PRIMARY) HYPERTENSION SNOMED Code(s): 09437446 Plan: Check CBC and CMP in the morning. Appreciate multiple consultants. Patient seen and evaluated by nurse practitioner, physician in agreement with plan.
[2024-08-31 10:14] LABS: HCT 33.5 % (37.2-46.3); HGB 11.4 g/dL (12.0-15.0); MCH 28.6 pg (27.0-32.0); MCHC 34.0 g/dL (32.0-37.0); MCV 84.2 FL (80.0-97.0); NRBC Per 100 WBC 0 X 10*3/uL (0.00-0.01); Platelet Count 198 X 10*3/uL (140-440); RBC 3.98 X 10*6/uL (4.10-5.20); RDW 15.8 % (11.5-14.5); WBC 7.43 X 10*3/uL (4.50-10.00)
[2024-08-31 10:33] LABS: ALT 21 U/L (8-44); AST 16 U/L (13-35); Albumin 2.7 g/dL (3.8-4.9); Albumin/Globulin Ratio 1.08 Ratio (1.60-3.17); Alkaline Phosphatase 79 U/L (41-126); Anion Gap 9.00 mmol/L (4.00-12.00); BUN/Creat Ratio 8.00 Ratio (12.00-20.00); Blood Urea Nitrogen 7.2 mg/dL (9.0-27.0); Calcium 8.4 mg/dL (8.7-10.3); Carbon Dioxide 21.0 mmol/L (21.6-31.8); Chloride 92 mmol/L (96-109); Globulin 2.5 g/dL (1.6-3.3); Glucose 86 mg/dL (70-110); Potassium 4.0 mmol/L (3.5-5.5); Sodium 122 mmol/L (135-145); Total Protein 5.2 g/dL (6.2-8.2)
[2024-08-31] MEDS: LOPERAMIDE 2 MG CAP PO PRN (12:48)
--- NOTE | 2024-08-31 13:21 | P.PN ---
Subjective Patient is seen for follow-up for hyponatremia. Serum sodium worsened with saline administration and saline was discontinued yesterday. Status post sodium chloride tab yesterday. Serum sodium improved to 122 yesterday and is back down to 119. Overall patient states she is feeling better. Blood pressure remains on the lower side. Objective - Vital Signs Vital signs: Vital Signs Temp 98.1 F 08/31/24 13:13 Pulse 117 H 08/31/24 13:13 Resp 16 08/31/24 13:13 BP 101/64 08/31/24 13:13 Pulse Ox 91 L 08/31/24 13:13 FiO2 Intake & Output 08/30/24 08/31/24 08/31/24 18:59 06:59 18:59 Intake Total 480 Output Total 1850 1600 250 Balance -1850 -1600 230 Intake: Oral 480 Output: Urine 1850 1600 250 Uretheral (Velasquez) 250 Other: Voiding Method Indwelling Catheter Indwelling Catheter Indwelling Catheter # Bowel Movements 1 4 - Exam 1. Hyponatremia, appears euvolemic currently. Possible component of hypovolemia initially. Serum sodium has worsened with saline administration suggesting possible underlying SIADH. I will DC the normal saline infusion and patient was given 1 dose of sodium chloride tab. Urine sodium less than 20 and urine osmolality at 320 to 2. Hypokalemia secondary to decreased oral intake 3. Non-gap metabolic acidosis most likely related to saline infusion. No reports of diarrhea. - Labs CBC & Chem 7: 08/31/24 05:47 08/31/24 10:41 Labs: Abnormal Lab Results - Last 24 Hours (Table) 08/30/24 08/30/24 08/31/24 Range/Units 14:52 20:44 05:47 RBC 3.98 L (4.10-5.20) X 10*6/uL Hgb 11.4 L (12.0-15.0) g/dL Hct 33.5 L (37.2-46.3) % RDW 15.8 H (11.5-14.5) % MPV 9.0 L (9.5-12.2) FL Sodium 120 L (137-145) mmol/L Chloride (96-109) mmol/L Carbon Dioxide (21.6-31.8) mmol/L BUN (9.0-27.0) mg/dL BUN/Creatinine Ratio (12.00-20.00) Ratio Calcium (8.7-10.3) mg/dL Total Protein (6.2-8.2) g/dL Albumin (3.8-4.9) g/dL Albumin/Globulin Ratio (1.60-3.17) Ratio Stool Lactoferrin Positive A (Negative) 08/31/24 08/31/24 Range/Units 05:47 10:41 RBC (4.10-5.20) X 10*6/uL Hgb (12.0-15.0) g/dL Hct (37.2-46.3) % RDW (11.5-14.5) % MPV (9.5-12.2) FL Sodium 122 L 119 L* (137-145) mmol/L Chloride 92 L (96-109) mmol/L Carbon Dioxide 21.0 L (21.6-31.8) mmol/L BUN 7.2 L (9.0-27.0) mg/dL BUN/Creatinine Ratio 8.00 L (12.00-20.00) Ratio Calcium 8.4 L (8.7-10.3) mg/dL Total Protein 5.2 L (6.2-8.2) g/dL Albumin 2.7 L (3.8-4.9) g/dL Albumin/Globulin Ratio 1.08 L (1.60-3.17) Ratio Stool Lactoferrin (Negative) Assessment and Plan Assessment: 1. Hyponatremia, appears euvolemic currently. Possible component of hypovolemia initially. Serum sodium has worsened with saline administration suggesting possible underlying SIADH. Saline was discontinued and patient was started on sodium chloride tabs. Urine osmolality at 320 to 2. Hypokalemia secondary to decreased oral intake 3. Non-gap metabolic acidosis most likely related to saline infusion. No reports of diarrhea. Plan: Continue off of IV fluids Continue with sodium chloride tabs Repeat sodium later this evening Add urea Consider Samsca if no further improvement
[2024-08-31] MEDS: UREA 15 GM POWD.PACK PO SCH (13:52)
[2024-08-31] MEDS: SODIUM CHLORIDE TAB 1 GM TAB PO SCH (13:52)
--- NOTE | 2024-08-31 18:34 | P.PN ---
Subjective Progress Note Date: 08/31/24 Reports diarrhea overnight, no diarrhea this morning. Sodium 122 this morning Objective - Vital Signs Vital signs: Vital Signs Temp 98.0 F 08/31/24 07:00 Pulse 104 H 08/31/24 08:00 Resp 16 08/31/24 08:00 BP 105/69 08/31/24 07:00 Pulse Ox 92 L 08/31/24 07:00 FiO2 Intake & Output 08/30/24 08/31/24 08/31/24 18:59 06:59 18:59 Intake Total 240 Output Total 1850 1600 250 Balance -184910 Intake: Oral 240 Output: Urine 1850 1600 250 Uretheral (Velasquez) 250 Other: Voiding Method Indwelling Catheter Indwelling Catheter Indwelling Catheter # Bowel Movements 1 4 - Constitutional General appearance: Present: average body habitus, no acute distress - EENT Eyes: Present: anicteric sclerae, EOMI ENT: Present: hearing grossly normal - Respiratory Details: breathing is even and unlabored - Gastrointestinal General gastrointestinal: Present: soft. Absent: tenderness - Integumentary Integumentary: Absent: cyanotic - Musculoskeletal Musculoskeletal: Present: generalized weakness - Psychiatric Psychiatric: Present: A&O x's 3 - Labs CBC & Chem 7: 08/31/24 05:47 08/31/24 10:41 Labs: Abnormal Lab Results - Last 24 Hours (Table) 08/30/24 08/30/24 08/31/24 Range/Units 14:52 20:44 05:47 RBC 3.98 L (4.10-5.20) X 10*6/uL Hgb 11.4 L (12.0-15.0) g/dL Hct 33.5 L (37.2-46.3) % RDW 15.8 H (11.5-14.5) % MPV 9.0 L (9.5-12.2) FL Sodium 120 L (137-145) mmol/L Chloride (96-109) mmol/L Carbon Dioxide (21.6-31.8) mmol/L BUN (9.0-27.0) mg/dL BUN/Creatinine Ratio (12.00-20.00) Ratio Calcium (8.7-10.3) mg/dL Total Protein (6.2-8.2) g/dL Albumin (3.8-4.9) g/dL Albumin/Globulin Ratio (1.60-3.17) Ratio Stool Lactoferrin Positive A (Negative) 08/31/24 08/31/24 Range/Units 05:47 10:41 RBC (4.10-5.20) X 10*6/uL Hgb (12.0-15.0) g/dL Hct (37.2-46.3) % RDW (11.5-14.5) % MPV (9.5-12.2) FL Sodium 122 L 119 L* (137-145) mmol/L Chloride 92 L (96-109) mmol/L Carbon Dioxide 21.0 L (21.6-31.8) mmol/L BUN 7.2 L (9.0-27.0) mg/dL BUN/Creatinine Ratio 8.00 L (12.00-20.00) Ratio Calcium 8.4 L (8.7-10.3) mg/dL Total Protein 5.2 L (6.2-8.2) g/dL Albumin 2.7 L (3.8-4.9) g/dL Albumin/Globulin Ratio 1.08 L (1.60-3.17) Ratio Stool Lactoferrin (Negative) Assessment and Plan (1) Renal cell carcinoma Current Visit: Yes Status: Acute Code(s): C64.9 - MALIGNANT NEOPLASM OF UNSP KIDNEY, EXCEPT RENAL PELVIS SNOMED Code(s): 035829715 (2) Hyponatremia Current Visit: Yes Status: Acute Code(s): E87.1 - HYPO-OSMOLALITY AND HYPONATREMIA SNOMED Code(s): 66205041 (3) Acute kidney injury Current Visit: Yes Status: Acute Code(s): N17.9 - ACUTE KIDNEY FAILURE, UNSPECIFIED SNOMED Code(s): 73623806 (4) Dehydration Current Visit: Yes Status: Acute Code(s): E86.0 - DEHYDRATION SNOMED Code(s): 61538064 Plan: Dehydration, diarrhea, LAUREL Admitted with diarrhea, dehydration, weakness, and hyponatremia -Kidney function improving with hydration. -Sodium 117 today. Sodium supplementation ordered. Sodium 122 this morning -Nephrology following -Stool studies ordered to r/o infectious etiology. C-diff negative, stool culture pending -Imodium prn -PT consulted Metastatic renal cell carcinoma - Diagnosis and treatment as stated in HPI - Metastatic RCC, bone only. Treated by Orthopedic Oncology to prevent a pathological fracture rt femur. She has had radiation to the area. - She was started on dual immunotherapy, with Opdivo/yervoy. S/p cycle 3 on 08/21 - Due to recurrent visual disturbances, plan for now was to hold treatment until evaluated by ophthalmology, and once the etiology of the eye symptoms has been determined, and these have been treated adequately, treatment will be restarted with single agent opdivo. If she tolerates that well, TKI will be added. -Consult to ophthalmology placed. If unable to evaluate inpt, will set up outpt referral
--- NOTE | 2024-09-01 08:43 | P.PN ---
Subjective Principal diagnosis: Hyponatremia. Metastatic renal cell cancer. This is a 69-year-old white female readmitted secondary to weakness after recent treatment for metastatic renal cell carcinoma. She has developed hyponatremia this morning. I suspect element of tumor related metabolic discord. No voiding difficulty stated. Patient states she feels better. Satiate consultants input. Objective - Vital Signs Vital signs: Vital Signs Temp 98.3 F 09/01/24 07:00 Pulse 101 H 09/01/24 07:00 Resp 16 09/01/24 07:00 BP 104/68 09/01/24 07:00 Pulse Ox 95 09/01/24 07:00 FiO2 Intake & Output 08/31/24 09/01/24 09/01/24 18:59 06:59 18:59 Intake Total 1560 Output Total 1350 250 Balance 210 -250 Intake: Oral 1560 Output: Urine 1350 250 Uretheral (Velasquez) 1350 250 Other: Voiding Method Indwelling Catheter Indwelling Catheter # Voids 1,000 # Bowel Movements 3 1 - Constitutional General appearance: Present: average body habitus, cooperative. Absent: no acute distress - Neck Neck: Absent: lymphadenopathy - Respiratory Respiratory: bilateral: diminished - Cardiovascular Rhythm: regular Heart sounds: normal: S1, S2 Abnormal Heart Sounds: Absent: S3 Gallop - Gastrointestinal General gastrointestinal: Present: soft. Absent: tenderness - Integumentary Integumentary: Absent: cellulitis - Labs CBC & Chem 7: 08/31/24 05:47 08/31/24 10:41 Labs: Abnormal Lab Results - Last 24 Hours (Table) 08/31/24 08/31/24 08/31/24 Range/Units 05:47 05:47 10:41 RBC 3.98 L (4.10-5.20) X 10*6/uL Hgb 11.4 L (12.0-15.0) g/dL Hct 33.5 L (37.2-46.3) % RDW 15.8 H (11.5-14.5) % MPV 9.0 L (9.5-12.2) FL Sodium 122 L 119 L* (135-145) mmol/L Chloride 92 L (96-109) mmol/L Carbon Dioxide 21.0 L (21.6-31.8) mmol/L BUN 7.2 L (9.0-27.0) mg/dL BUN/Creatinine Ratio 8.00 L (12.00-20.00) Ratio Calcium 8.4 L (8.7-10.3) mg/dL Total Protein 5.2 L (6.2-8.2) g/dL Albumin 2.7 L (3.8-4.9) g/dL Albumin/Globulin Ratio 1.08 L (1.60-3.17) Ratio Assessment and Plan (1) Hyponatremia Current Visit: Yes Status: Acute Code(s): E87.1 - HYPO-OSMOLALITY AND HYPONATREMIA SNOMED Code(s): 76496687 (2) History of renal cell carcinoma Current Visit: No Status: Chronic Priority: Medium Code(s): Z85.528 - PERSONAL HISTORY OF OTHER MALIGNANT NEOPLASM OF KIDNEY SNOMED Code(s): 927981970 Plan: Rec CMP and CBC in the AM. 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 Appreciate nephrology input. Continue current regimen of treatment. Prognosis is guarded
[2024-09-01 10:13] LABS: HCT 32.5 % (37.2-46.3); HGB 11.2 g/dL (12.0-15.0); MCH 28.8 pg (27.0-32.0); MCHC 34.5 g/dL (32.0-37.0); MCV 83.5 FL (80.0-97.0); NRBC Per 100 WBC 0 X 10*3/uL (0.00-0.01); Platelet Count 193 X 10*3/uL (140-440); RBC 3.89 X 10*6/uL (4.10-5.20); RDW 15.8 % (11.5-14.5); WBC 9.27 X 10*3/uL (4.50-10.00)
[2024-09-01 10:48] LABS: ALT 20 U/L (8-44); AST 15 U/L (13-35); Albumin 2.5 g/dL (3.8-4.9); Albumin/Globulin Ratio 0.96 Ratio (1.60-3.17); Alkaline Phosphatase 86 U/L (41-126); Anion Gap 9.20 mmol/L (4.00-12.00); BUN/Creat Ratio 35.14 Ratio (12.00-20.00); Blood Urea Nitrogen 24.6 mg/dL (9.0-27.0); Calcium 8.9 mg/dL (8.7-10.3); Carbon Dioxide 21.8 mmol/L (21.6-31.8); Chloride 90 mmol/L (96-109); Globulin 2.6 g/dL (1.6-3.3); Glucose 96 mg/dL (70-110); Potassium 4.2 mmol/L (3.5-5.5); Sodium 121 mmol/L (135-145); Total Protein 5.1 g/dL (6.2-8.2)
[2024-09-01] MEDS: TOLVAPTAN 15 MG TABLET PO ONE ×2 (10:56→21:34)
[2024-09-01] MEDS ORDERED: ARTIFICIAL TEARS-HYPROMELLOSE DROPS 15 ML BTL BOTH EYES PRN (14:57)
[2024-09-01] MEDS: PROPARACAINE 0.5% OPHTH DROPS 15 ML BTL BOTH EYES STA (16:05)
[2024-09-01] MEDS: PHENYLEPHRINE 2.5% OPHTH DRP 2ML BOTH EYES ONE (16:06)
[2024-09-01] MEDS: TROPICAMIDE 1% OPHTH DROPS 2 ML BTL BOTH EYES ONE (16:06)
--- NOTE | 2024-09-01 16:55 | P.PN ---
Subjective Patient is seen for follow-up for hyponatremia. Serum sodium worsened with saline administration and saline was discontinued. No improvement with salt tabs and urea. Sodium 119 today. Will proceed with [facility] Blood pressure remains on the lower side. Objective - Vital Signs Vital signs: Vital Signs Temp 98.3 F 09/01/24 12:29 Pulse 94 09/01/24 12:29 Resp 16 09/01/24 12:29 BP 102/65 09/01/24 12:29 Pulse Ox 91 L 09/01/24 12:29 FiO2 Intake & Output 08/31/24 09/01/24 09/01/24 18:59 06:59 18:59 Intake Total 1560 Output Total 1350 1250 Balance 210 -1250 Intake: Oral 1560 Output: Urine 1350 1250 Uretheral (Velasquez) 1350 1250 Other: Voiding Method Indwelling Catheter Indwelling Catheter Indwelling Catheter # Voids 1,000 # Bowel Movements 3 1 5 - Exam 1. Hyponatremia, appears euvolemic currently. Possible component of hypovolemia initially. Serum sodium has worsened with saline administration suggesting possible underlying SIADH. No improvement with salt tabs and urea. Urine sodium less than 20 and urine osmolality at 320 2. Hypokalemia secondary to decreased oral intake 3. Non-gap metabolic acidosis most likely related to saline infusion. No reports of diarrhea. stable - Labs CBC & Chem 7: 09/01/24 06:54 09/01/24 14:20 Labs: Abnormal Lab Results - Last 24 Hours (Table) 09/01/24 09/01/24 09/01/24 Range/Units 06:54 06:54 08:05 RBC 3.89 L (4.10-5.20) X 10*6/uL Hgb 11.2 L (12.0-15.0) g/dL Hct 32.5 L (37.2-46.3) % RDW 15.8 H (11.5-14.5) % MPV 9.0 L (9.5-12.2) FL Sodium 121 L 119 L* (135-145) mmol/L Chloride 90 L (96-109) mmol/L BUN/Creatinine Ratio 35.14 H (12.00-20.00) Ratio Total Protein 5.1 L (6.2-8.2) g/dL Albumin 2.5 L (3.8-4.9) g/dL Albumin/Globulin Ratio 0.96 L (1.60-3.17) Ratio 09/01/24 Range/Units 14:20 RBC (4.10-5.20) X 10*6/uL Hgb (12.0-15.0) g/dL Hct (37.2-46.3) % RDW (11.5-14.5) % MPV (9.5-12.2) FL Sodium 120 L (135-145) mmol/L Chloride (96-109) mmol/L BUN/Creatinine Ratio (12.00-20.00) Ratio Total Protein (6.2-8.2) g/dL Albumin (3.8-4.9) g/dL Albumin/Globulin Ratio (1.60-3.17) Ratio Microbiology - Last 24 Hours (Table) 08/30/24 20:44 Stool Culture - Preliminary Stool Assessment and Plan Assessment: 1. Hyponatremia, appears euvolemic currently. Possible component of hypovolemia initially. Serum sodium has worsened with saline administration suggesting possible underlying SIADH. Saline was discontinued and patient was started on sodium chloride tabs. Urine osmolality at 320 to 2. Hypokalemia secondary to decreased oral intake 3. Non-gap metabolic acidosis most likely related to saline infusion. No reports of diarrhea. Plan: Samca x1 Continue off of IV fluids Continue with sodium chloride tabs Repeat sodium later this evening Continue urea
--- NOTE | 2024-09-01 17:19 | P.CON ---
Consult Note - . Consult date: 09/01/24 Assessment/Plan:: This is a 69 y/o female with renal cell carcinoma diagnosed in 2017, and was treated with a left nephrectomy, and no systemic therapy. In Apr 2024 was experiencing right lower extremity pain. Following orthopedic debridement and prophylactic intramedullary nail placement in the right femur, she was begun on CTL A4/PD-L1 therapy. During the first cycle of medication she began to experience vision. Following ophthalmology consultation, and steroid therapy was tapered and eye problems resolved. Following the second cycle of therapy, and has begun to experience eye symptoms once again. Current therapy is being held until cleared with ophthalmology, once again. Her past eye history is not significant for glaucoma, macular degeneration, or previous surgery. She does wear glasses, but was unclear as to whether she needed them for distance or reading. Her last eye exam was earlier in July. Va: uncorrected 20/40 OD, 20/30 OS Pupils: - APD, Perrl CF: normal, though confounded with patient alertness EOM: full D&V, orthophoric IOP: @ 1445 14 mm Hg OD, 13 mm Hg OS Dilated @ 1449 1% tropicamide & 2.5% neosynephrine, (will remain DILATED for 6-9 ) Cornea: clear OU, dry appearing AC: deep and quiet Iris: without pathology Lens: 2-3 NS OU Vitreous: quiet, syneresis Optic nerve: S/F/P C:D 0.35 OU Macular: dim FLR, without overt edema Vascular: normal, 0.66 caliber Peripheral: limited, normal A: 1) blurring vision most likely dry eye, normal age-related and possible aggravation with medication 2) no indication of iritis/uveitis, at this time, a possible side effect of the Opdivo/Yervoy medications 3) early cataract, limited examination today, however, a possible confirmative reaction that this patient may be a possible steroid responder. Sometimes, reactions may happen in as little as 5 days, especially when the dosage in relatively high. P: Recommend in office examination on follow up, possible visual field, color vision testing, etc., to better determine other underlying etiology of the vision changes. Recommend when reintroducing steroids, that a ophthalmology consult be considered within a week of initiation of that therapy. Age and cataract development may aggravate a possible steroid response. Only immediate therapy recommended is initiating artificial tears usage several times daily, to see if that stabilizes vision. Thank you for this consultation.
[2024-09-01] MEDS: ARTIFICIAL TEARS-HYPROMELLOSE DROPS 15 ML BTL BOTH EYES SCH (17:44)
--- NOTE | 2024-09-01 17:49 | P.PN ---
Subjective Progress Note Date: 09/01/24 Reports diarrhea has started to improve. C-diff testing negative. Sodium 119. Samsca given. Objective - Vital Signs Vital signs: Vital Signs Temp 98.3 F 09/01/24 12:29 Pulse 94 09/01/24 12:29 Resp 16 09/01/24 12:29 BP 102/65 09/01/24 12:29 Pulse Ox 91 L 09/01/24 12:29 FiO2 Intake & Output 08/31/24 09/01/24 09/01/24 18:59 06:59 18:59 Intake Total 1560 Output Total 1350 1250 Balance 210 -1250 Intake: Oral 1560 Output: Urine 1350 1250 Uretheral (Velasquez) 1350 1250 Other: Voiding Method Indwelling Catheter Indwelling Catheter Indwelling Catheter # Voids 1,000 # Bowel Movements 3 1 5 - Constitutional General appearance: Present: average body habitus, no acute distress - EENT Eyes: Present: anicteric sclerae, EOMI ENT: Present: hearing grossly normal - Respiratory Details: breathing is even and unlabored - Cardiovascular Details: skin warm and dry - Gastrointestinal General gastrointestinal: Present: soft. Absent: tenderness - Integumentary Integumentary: Absent: cyanotic - Musculoskeletal Musculoskeletal: Present: generalized weakness - Psychiatric Psychiatric: Present: A&O x's 3 - Labs CBC & Chem 7: 09/01/24 06:54 09/01/24 14:20 Labs: Abnormal Lab Results - Last 24 Hours (Table) 09/01/24 09/01/24 09/01/24 Range/Units 06:54 06:54 08:05 RBC 3.89 L (4.10-5.20) X 10*6/uL Hgb 11.2 L (12.0-15.0) g/dL Hct 32.5 L (37.2-46.3) % RDW 15.8 H (11.5-14.5) % MPV 9.0 L (9.5-12.2) FL Sodium 121 L 119 L* (135-145) mmol/L Chloride 90 L (96-109) mmol/L BUN/Creatinine Ratio 35.14 H (12.00-20.00) Ratio Total Protein 5.1 L (6.2-8.2) g/dL Albumin 2.5 L (3.8-4.9) g/dL Albumin/Globulin Ratio 0.96 L (1.60-3.17) Ratio 09/01/24 Range/Units 14:20 RBC (4.10-5.20) X 10*6/uL Hgb (12.0-15.0) g/dL Hct (37.2-46.3) % RDW (11.5-14.5) % MPV (9.5-12.2) FL Sodium 120 L (135-145) mmol/L Chloride (96-109) mmol/L BUN/Creatinine Ratio (12.00-20.00) Ratio Total Protein (6.2-8.2) g/dL Albumin (3.8-4.9) g/dL Albumin/Globulin Ratio (1.60-3.17) Ratio Microbiology - Last 24 Hours (Table) 08/30/24 20:44 Stool Culture - Preliminary Stool Assessment and Plan (1) Renal cell carcinoma Current Visit: Yes Status: Acute Code(s): C64.9 - MALIGNANT NEOPLASM OF UNSP KIDNEY, EXCEPT RENAL PELVIS SNOMED Code(s): 768414012 (2) Hyponatremia Current Visit: Yes Status: Acute Code(s): E87.1 - HYPO-OSMOLALITY AND HYPONATREMIA SNOMED Code(s): 92572382 (3) Acute kidney injury Current Visit: Yes Status: Acute Code(s): N17.9 - ACUTE KIDNEY FAILURE, UNSPECIFIED SNOMED Code(s): 66239860 (4) Dehydration Current Visit: Yes Status: Acute Code(s): E86.0 - DEHYDRATION SNOMED Co de(s): 35721211 Plan: Dehydration, diarrhea, LAUREL Admitted with diarrhea, dehydration, weakness, and hyponatremia -Kidney function improving with hydration. -Sodium 119 today. Samsca given. If hyponatremia is still not improving despite meds/supplementation, may need to consider retrialing steroids. If high dose steroids are indicated will need close f/u with ophthalmology -Nephrology following -Stool studies ordered to r/o infectious etiology. C-diff negative, stool culture pending -Imodium prn -PT consulted Metastatic renal cell carcinoma - Diagnosis and treatment as stated in HPI - Metastatic RCC, bone only. Treated by Orthopedic Oncology to prevent a pathological fracture rt femur. She has had radiation to the area. - She was started on dual immunotherapy, with Opdivo/yervoy. S/p cycle 3 on 08/21 - Due to recurrent visual disturbances, plan for now was to hold treatment until evaluated by ophthalmology, and once the etiology of the eye symptoms has been determined, and these have been treated adequately, treatment will be restarted with single agent opdivo. If she tolerates that well, TKI will be added. -Consult to ophthalmology placed. Spoke with can repairer, no indication for iritis/uveitis at this time, recommending outpt followup. Doctor attests: I performed a history and physical examination of this patient, developed impression and plan of care. Discussed with dictator. I agree with dictators note, documented as a scribe.
[2024-09-02 09:29] LABS: HCT 34.7 % (37.2-46.3); HGB 11.7 g/dL (12.0-15.0); MCH 28.4 pg (27.0-32.0); MCHC 33.7 g/dL (32.0-37.0); MCV 84.2 FL (80.0-97.0); NRBC Per 100 WBC 0 X 10*3/uL (0.00-0.01); Platelet Count 236 X 10*3/uL (140-440); RBC 4.12 X 10*6/uL (4.10-5.20); RDW 15.9 % (11.5-14.5); WBC 10.29 X 10*3/uL (4.50-10.00)
--- NOTE | 2024-09-02 12:46 | P.PN ---
Subjective Patient is seen for follow-up for hyponatremia. Serum sodium worsened with saline administration and saline was discontinued. No improvement with salt tabs and urea. Received Samsca 2 yesterday Serum sodium increased to 124 today. Blood pressure remains on the lower side. Objective - Vital Signs Vital signs: Vital Signs Temp 98.2 F 09/02/24 12:22 Pulse 87 09/02/24 12:22 Resp 16 09/02/24 12:22 BP 90/60 09/02/24 12:22 Pulse Ox 94 L 09/02/24 12:22 FiO2 Intake & Output 09/01/24 09/02/24 09/02/24 18:59 06:59 18:59 Intake Total 780 240 Output Total 2250 800 250 Balance -1470 -800 -10 Intake: Oral 780 240 Output: Urine 2250 800 250 Uretheral (Velasquez) 1250 250 Other: Voiding Method Indwelling Catheter Indwelling Catheter Indwelling Catheter # Bowel Movements 5 - Exam patient is awake, comfortable No acute distress Examination of the heart S1 and S2 Examination of the lungs bilateral breath sounds are heard Abdomen is soft nontender Examination of lower extremity shows no evidence of edema. - Labs CBC & Chem 7: 09/02/24 06:35 09/02/24 10:43 Labs: Abnormal Lab Results - Last 24 Hours (Table) 09/01/24 09/01/24 09/02/24 Range/Units 14:20 20:45 06:35 WBC 10.29 H (4.50-10.00) X 10*3/uL Hgb 11.7 L (12.0-15.0) g/dL Hct 34.7 L (37.2-46.3) % RDW 15.9 H (11.5-14.5) % MPV 9.0 L (9.5-12.2) FL Sodium 120 L 121 L (137-145) mmol/L 09/02/24 Range/Units 10:43 WBC (4.50-10.00) X 10*3/uL Hgb (12.0-15.0) g/dL Hct (37.2-46.3) % RDW (11.5-14.5) % MPV (9.5-12.2) FL Sodium 124 L (137-145) mmol/L Microbiology - Last 24 Hours (Table) 08/30/24 20:44 Stool Culture - Preliminary Stool Assessment and Plan Assessment: 1. Hyponatremia, appears euvolemic currently. Possible component of hypovolemia initially. Serum sodium worsened with saline administration suggesting possible underlying SIADH. Saline was discontinued and patient was started on sodium chloride tabs. Urine osmolality at 320. Serum sodium did not improve with sodium chloride tabs and urea and therefore she received Samsca and sodium has improved to 124 today. 2. Hypokalemia secondary to decreased oral intake 3. Non-gap metabolic acidosis most likely related to saline infusion. No reports of diarrhea. Plan: repeat Samsca today Consider adding steroids as blood pressure remains low Continue off of IV fluids Continue with sodium chloride tabs Repeat sodium later this evening Continue urea
[2024-09-02 13:09] LABS: ALT 19 U/L (8-44); AST 17 U/L (13-35); Albumin 2.7 g/dL (3.8-4.9); Albumin/Globulin Ratio 0.93 Ratio (1.60-3.17); Alkaline Phosphatase 96 U/L (41-126); Anion Gap 12.70 mmol/L (4.00-12.00); BUN/Creat Ratio 37.70 Ratio (12.00-20.00); Blood Urea Nitrogen 37.7 mg/dL (9.0-27.0); Calcium 9.5 mg/dL (8.7-10.3); Carbon Dioxide 21.3 mmol/L (21.6-31.8); Chloride 91 mmol/L (96-109); Globulin 2.9 g/dL (1.6-3.3); Glucose 112 mg/dL (70-110); Potassium 4.9 mmol/L (3.5-5.5); Sodium 125 mmol/L (135-145); Total Protein 5.6 g/dL (6.2-8.2)
[2024-09-02] MEDS: TOLVAPTAN 15 MG TABLET PO ONE (13:23)
--- NOTE | 2024-09-02 14:30 | P.PN ---
Subjective Progress Note Date: 09/02/24 Metastatic renal cell cancer. This is a 69-year-old white female readmitted secondary to weakness after recent treatment for metastatic renal cell carcinoma. She has developed hyponatremia this morning. I suspect element of tumor related metabolic discord. No voiding difficulty stated. Patient states she feels better. 09/02. Patient seen and examined. States she feels better. Labs this morning showed WBC 10.29, hemoglobin 9.7, platelet count 236 REVIEW OF SYSTEMS: CONSTITUTIONAL: No fever, no malaise,. CARDIOVASCULAR: No chest pain, no palpitations, no syncope. PULMONARY: No shortness of breath, no cough, GASTROINTESTINAL: No diarrhea, no nausea, no vomiting, no abdominal pain. NEUROLOGICAL: No headaches, no weakness, PHYSICAL EXAMINATION: GENERAL: The patient is alert and oriented x3, ill looking HEENT: Pupils are round and equally reacting to light. EOMI. No scleral icterus. No conjunctival pallor. Normocephalic, atraumatic. No pharyngeal erythema. No thyromegaly. CARDIOVASCULAR: S1 and S2 present. No murmurs, rubs, or gallops. PULMONARY: Chest is clear to auscultation, no wheezing or crackles. ABDOMEN: Soft, nontender, nondistended, normoactive bowel sounds. No palpable organomegaly. MUSCULOSKELETAL: No joint swelling or deformity. EXTREMITIES: No cyanosis, clubbing, or pedal edema. NEUROLOGICAL: Gross neurological examination did not reveal any focal deficits. SKIN: No rashes. Assessment and plan Hyponatremia Hypokalemia Non-anion gap metabolic acidosis Metastatic renal cell carcinoma Monitor vital signs Monitor CBC Monitor CMP Patient received tolvaptan on 09/01 two dose, getting another dose on 08/25 Continued on sodium tabs Continue amiodarone Continue aspirin, Lipitor Continue [facility] following, appreciate recommendations, noted their recommendations from 09/02 Hematology-oncology following, their recommendations noted from 09/01 Labs and medication were reviewed.. Continue same treatment. Continue with symptomatic treatment. Resume home medication. Monitor labs and vitals. DVT and GI prophylaxis. Further recommendations as per clinical course of the patient Dictation was produced using [employer] dictation software. please excuse any grammatical, word or spelling errors. Objective - Vital Signs Vital signs: Vital Signs Temp 98.1 F 09/02/24 07:05 Pulse 99 09/02/24 08:00 Resp 17 09/02/24 08:00 BP 95/64 09/02/24 07:05 Pulse Ox 94 L 09/02/24 07:05 FiO2 Intake & Output 09/01/24 09/02/24 09/02/24 18:59 06:59 18:59 Intake Total 780 240 Output Total 2250 800 250 Balance -1470 -800 -10 Intake: Oral 780 240 Output: Urine 2250 800 250 Uretheral (Velasquez) 1250 250 Other: Voiding Method Indwelling Catheter Indwelling Catheter Indwelling Catheter # Bowel Movements 5 - Labs CBC & Chem 7: 09/02/24 06:35 09/02/24 10:43 Labs: Abnormal Lab Results - Last 24 Hours (Table) 09/01/24 09/01/24 09/02/24 Range/Units 14:20 20:45 06:35 WBC 10.29 H (4.50-10.00) X 10*3/uL Hgb 11.7 L (12.0-15.0) g/dL Hct 34.7 L (37.2-46.3) % RDW 15.9 H (11.5-14.5) % MPV 9.0 L (9.5-12.2) FL Sodium 120 L 121 L (137-145) mmol/L Microbiology - Last 24 Hours (Table) 08/30/24 20:44 Stool Culture - Preliminary Stool
[2024-09-02] MEDS: ACETAMINOPHEN TAB 325 MG TAB PO PRN (17:16)
--- NOTE | 2024-09-02 17:20 | P.PN ---
Progress Note - Text Progress Note Date: 09/02/24 Ms. Humphrey is a very pleasant 69 yo female with history of RCC on dual immunotherapy with opdivo/yervoy, s/p C3 given on 08/21/24, here for weakness. Having vision changes, intermittent neurologic changes, and hyponatremia. unclear etiology of her complaints. Ophthalomlogy and nephrology on board. today she was noted to having increased lethargy. wbc slightly increase today, 10 from 9's. sodium improved, 124 from 119 yesterday with samsca. - on exam very drowsy but arousable. states she is very tired - consider MRI brain - if no improvement, no objections to steroids - check TSH and cortisol prior to initiation of steroids (ordered to be drawn 09/03/24 am) Discussed with pt and she was agreeable. discussed with nursing staff.
[2024-09-03] MEDS: ERGOCALCIFEROL 1,250 MCG (50,000 IU) CAPSULE PO SCH (09:26)
[2024-09-03 10:28] LABS: African American GFR (CKD) 90 (>60 ml/min/1.73 sqM); Anion Gap 13 mmol/L; Blood Urea Nitrogen 48 mg/dL (7-17); Calcium 10.6 mg/dL (8.4-10.2); Carbon Dioxide 23 mmol/L (22-30); Chloride 100 mmol/L (98-107); Glucose 121 mg/dL (74-99); Non-African American GFR(CKD) 78 (>60 ml/min/1.73 sqM); Potassium 4.6 mmol/L (3.5-5.1); Sodium 136 mmol/L (137-145)
--- NOTE | 2024-09-03 10:54 | P.PN ---
Subjective Progress Note Date: 09/03/24 Metastatic renal cell cancer. This is a 69-year-old white female readmitted secondary to weakness after recent treatment for metastatic renal cell carcinoma. She has developed hyponatremia this morning. I suspect element of tumor related metabolic discord. No voiding difficulty stated. Patient states she feels better. 09/02. Patient seen and examined. States she feels better. Labs this morning showed WBC 10.29, hemoglobin 9.7, platelet count 236 09/03. Patient seen and examined. Continues to be lethargic, at times confused. Patient having diarrhea, abdomen is distended, no abdominal pain. REVIEW OF SYSTEMS: CONSTITUTIONAL: No fever, no malaise,. CARDIOVASCULAR: No chest pain, no palpitations, no syncope. PULMONARY: No shortness of breath, no cough, GASTROINTESTINAL: No as mentioned above NEUROLOGICAL: No headaches, no weakness, PHYSICAL EXAMINATION: GENERAL: The patient is alert and oriented x3, ill looking HEENT: Pupils are round and equally reacting to light. EOMI. No scleral icterus. No conjunctival pallor. Normocephalic, atraumatic. No pharyngeal erythema. No thyromegaly. CARDIOVASCULAR: S1 and S2 present. No murmurs, rubs, or gallops. PULMONARY: Chest is clear to auscultation, no wheezing or crackles. ABDOMEN: Distended, normoactive bowel sounds. No palpable organomegaly. MUSCULOSKELETAL: No joint swelling or deformity. EXTREMITIES: No cyanosis, clubbing, or pedal edema. NEUROLOGICAL: Gross neurological examination did not reveal any focal deficits. SKIN: No rashes. Assessment and plan Hyponatremia Hypokalemia Non-anion gap metabolic acidosis Metastatic renal cell carcinoma Monitor vital signs Monitor CBC Monitor CMP Patient received tolvaptan on 09/01 two dose, getting another dose on 08/25 Continued on sodium tabs Continue amiodarone Continue aspirin, Lipitor Continue Keppra MRI brain ordered CT abdomen pelvis ordered Nephrology following, appreciate recommendations, noted their recommendations from 09/02 Hematology-oncology following, their recommendations noted from 09/02 Neurology consulted Labs and medication were reviewed.. Continue same treatment. Continue with symptomatic treatment. Resume home medication. Monitor labs and vitals. DVT and GI prophylaxis. Further recommendations as per clinical course of the patient Dictation was produced using [employer] dictation software. please excuse any grammatical, word or spelling errors. Objective - Vital Signs Vital signs: Vital Signs Temp 98.1 F 09/03/24 07:06 Pulse 97 09/03/24 09:20 Resp 19 09/03/24 09:20 BP 107/74 09/03/24 09:20 Pulse Ox 98 09/03/24 09:20 FiO2 Intake & Output 09/02/24 09/03/24 09/03/24 18:59 06:59 18:59 Intake Total 2974 Output Total 250 4750 250 Balance 2724 -4750 -250 Intake: Oral 2974 Output: Urine 250 4750 250 Uretheral (Velasquez) 250 250 Other: Voiding Method Indwelling Catheter Indwelling Catheter - Labs CBC & Chem 7: 09/02/24 06:35 09/03/24 09:50 Labs: Abnormal Lab Results - Last 24 Hours (Table) 09/02/24 09/02/24 Range/Units 06:35 10:43 Sodium 125 L 124 L (135-145) mmol/L Chloride 91 L (96-109) mmol/L Carbon Dioxide 21.3 L (21.6-31.8) mmol/L Anion Gap 12.70 H (4.00-12.00) mmol/L BUN 37.7 H (9.0-27.0) mg/dL BUN/Creatinine Ratio 37.70 H (12.00-20.00) Ratio Glucose 112 H (70-110) mg/dL Total Protein 5.6 L (6.2-8.2) g/dL Albumin 2.7 L (3.8-4.9) g/dL Albumin/Globulin Ratio 0.93 L (1.60-3.17) Ratio Microbiology - Last 24 Hours (Table) 08/30/24 20:44 Stool Culture - Final Stool
--- NOTE | 2024-09-03 12:56 | P.PN ---
Subjective Patient is seen for follow-up for hyponatremia. Serum sodium worsened with saline administration and saline was discontinued. No improvement with salt tabs and urea. Therefore received Samsca x3 Serum sodium increased to 136 today. Objective - Vital Signs Vital signs: Vital Signs Temp 97.8 F 09/03/24 12:25 Pulse 91 09/03/24 12:25 Resp 16 09/03/24 12:25 BP 112/76 09/03/24 12:25 Pulse Ox 94 L 09/03/24 12:25 FiO2 Intake & Output 09/02/24 09/03/24 09/03/24 18:59 06:59 18:59 Intake Total 2974 240 Output Total 250 4750 250 Balance 0029 -1390 -10 Intake: Oral 2974 240 Output: Urine 250 4750 250 Uretheral (Velasquez) 250 250 Other: Voiding Method Indwelling Catheter Indwelling Catheter Indwelling Catheter - Exam patient is awake, comfortable No acute distress Examination of the heart S1 and S2 Examination of the lungs bilateral breath sounds are heard Abdomen is soft nontender Examination of lower extremity shows no evidence of edema. - Labs CBC & Chem 7: 09/02/24 06:35 09/03/24 09:50 Labs: Abnormal Lab Results - Last 24 Hours (Table) 09/02/24 09/03/24 09/03/24 Range/Units 06:35 04:23 09:50 Sodium 125 L 136 L (135-145) mmol/L Chloride 91 L (96-109) mmol/L Carbon Dioxide 21.3 L (21.6-31.8) mmol/L Anion Gap 12.70 H (4.00-12.00) mmol/L BUN 37.7 H 48 H (9.0-27.0) mg/dL BUN/Creatinine Ratio 37.70 H (12.00-20.00) Ratio Glucose 112 H 121 H (70-110) mg/dL Calcium 10.6 H (8.4-10.2) mg/dL Total Protein 5.6 L (6.2-8.2) g/dL Albumin 2.7 L (3.8-4.9) g/dL Albumin/Globulin Ratio 0.93 L (1.60-3.17) Ratio Cortisol 55.5 H (3.1-22.4) UG/DL Microbiology - Last 24 Hours (Table) 08/30/24 20:44 Stool Culture - Final Stool Assessment and Plan Assessment: 1. Hyponatremia, appears euvolemic currently. Possible component of hyp ovolemia initially. Serum sodium worsened with saline administration suggesting possible underlying SIADH. Saline was discontinued and patient was started on sodium chloride tabs. Urine osmolality at 320. Serum sodium did not improve with sodium chloride tabs and urea and therefore she received Samsca and sodium has improved to 136 today. 2. Hypokalemia secondary to decreased oral intake 3. Non-gap metabolic acidosis most likely related to saline infusion. No reports of diarrhea. 4. Stage IV renal cell cancer with bony metastasis Plan: DC salt tablets Repeat sodium later on today and in a.m. Continue urea
--- NOTE | 2024-09-03 13:05 | CT ---
EXAMINATION TYPE: CT abdomen pelvis wo con DATE OF EXAM: 09/03/2024 12:10 PM COMPARISON: 08/08/2024, 06/22/2024, 04/12/2024, 11/05/2022 CLINICAL INDICATION: Female, 69 years old with history of pain/diarrhea; pain, diarrhea TECHNIQUE: Axial CT abdomen pelvis wo con;Sagittal and coronal reformats were created on a separate workstation. Contrast used: mL of , (none if empty) Oral contrast used: without Oral Contrast (none if empty) CT DLP: 873 mGycm, Automated exposure control for dose reduction was used. FINDINGS: LOWER CHEST: Streaky atelectasis in the lung bases. Mild cardiomegaly. Mild to moderate coronary courtney ry atherosclerosis. ABDOMEN LIVER: Unremarkable GALLBLADDER AND BILE DUCTS: Unremarkable. PANCREAS: Unremarkable. SPLEEN: Unremarkable. ADRENAL GLANDS: Unremarkable. KIDNEYS AND URETERS: Left kidney appears surgically absent. No evidence of hydronephrosis or obstruct ing renal calculus. The ureters are unremarkable. The inferior pole renal cyst measuring 36 mm. Follow-up recommended. PELVIS BLADDER: Nondistended with Velasquez catheter in place. REPRODUCTIVE: Unremarkable. ABDOMEN & PELVIS STOMACH AND BOWEL: No evidence of bowel obstruction. Gaseous and water distention of the colon. The c ontents are most pronounced in the rectum and sigmoid colon. Mild fat stranding changes around the si gmoid colon may be present series 6 image 36. The appendix appears normal. PERITONEUM/RETROPERITONEUM: No evidence of pneumoperitoneum or free fluid. VASCULATURE: No evidence of aortic aneurysm. MUSCULOSKELETAL: No acute osseous abnormalities. Moderate disc degeneration changes are present throu ghout the thoracolumbar spine. Sn femur. Fixation of L5-S1. Hardware appears intact. Degeneration wing nges throughout the spine with disc space tearing mass effect formation and mild scoliosis. At least severe L4-L5 right neural foraminal stenosis. lytic lesion in the T6 vertebral body measuring up to 2 .8 cm this erodes into the posterior endplate. LYMPH NODES: No gross evidence for lymphadenopathy. SOFT TISSUE/ABDOMINAL WALL: Unremarkable IMPRESSION: 1. Gaseous moderate distention of the colon. Mild colitis may be present the sigmoid colon. 2. T6 vertebral body lytic lesion which erodes the posterior endplate of the vertebral body and is s uspicious for metastatic disease/malignancy until proven otherwise. 3. Surgically absent left kidney. No Soft tissue mass in the surgical bed. 4. Simple appearing right renal cyst no follow-up recommended. 5. Velasquez catheter in appropriate position. 6. Fixation hardware in the right femur and spine appear intact. [facility], , 09/03/2024 1:02 PM
[2024-09-03 20:14] LABS: Glucose,Whole Blood 124 mg/dL (70-110)
--- NOTE | 2024-09-04 04:10 | P.CNNES ---
History of Present Illness Consult date: 09/03/24 Requesting physician: Noble Lopez Reason for Consult: Altered mental status History of Present Illness: Patient is a 69-year-old female with history of metastatic renal cell carcinoma, came to the hospital on 08/29/2024 at 12:37 PM for altered mental status. Patient's son was also present by the bedside, who provided with history. He mentions that the visiting nurse came and the home and noted patient was acting strange, her BP was low, therefore she was recommended to go to the ER. Patient was diagnosed with renal cell carcinoma in April 2024. She has been receiving immunotherapy with Opdivo/Yervoy, and has received first dose on 06/15/2024, and the second dose on 07/17/2024. patient was recently admitted to the hospital on 08/07/2024 when she developed acute mental confusion, acting bizarre, got up and fell. She was seen by Dr. Jasvir Weeks, and underwent EEG and MRI as mentioned below. Patient was discharged on 08/14/2024 and was able to walk with a walker, was having conversation as per the video that they took at that time at the time of discharge. Patient's son could not tell me if patient was getting better after she was discharged and, and patient's appears to have severe anxiety problem, could not understand or answer the question either. In any case, patient received third dose of her immunotherapy on 08/21/2024. She has been having steady decline since then. She has been very groggy. Vital signs at this time shows normal blood pressure 112/76, pulse rate 91 temperature 97.8. Patient has been afebrile. Blood test shows sodium 136, was 121 2 days ago, normal renal functions. Hepatic panel is normal. TSH normal. Cortisol 55.5. Patient has been having fluctuating sodium level ranging between 117 up to 124. However most recent is 136. UA is negative. Patient was just seen by Dr. Dr. Weeks on 08/09/2024. I reviewed his notes. Workup performed was as below. CT of the head is reported as no acute intracranial process. MRI of the brain is reported as increased signal within the posterior occipital lobe bilaterally. No underlying enhancement is evident. Findings are nonspecific. Finding could be related to early metastasis. Hyperintense changes can affect this region. White matter ischemic change is less likely given the focal distribution. Addendum for the MRI is reported as additional review performed there is a high FLAIR signal in the bilateral occipital lobe right greater than left some area of petechial hemorrhage is present on the right in the cortex on the series 601 image 441 as well as evidence of high DWI low ADC signal within the cortex only in the right occipital lobe. Additional consideration should be include posterior reversible encephalopathy syndrome (PRES) versus small occipital lobe cortical infarct with petechial hemorrhage versus other etiology are felt to be less likely. No enhancing masses definitely visualized. I personally reviewed MRI, agree with possibility of PRES. Routine EEG is abnormal. The background slowing is suggestive of mild encephalopathy. There is no focal slowing, discharges or seizure on the EEG. Review of Systems all pertinent positive and negative review of systems mentioned HPI, otherwise unremarkable. ROS unobtainable: due to mental status Past Medical History Past Medical History: Cancer, Chest Pain / Angina, Heart Failure, GERD/Reflux, Hyperlipidemia, Hypertension, Myocardial Infarction ([place]), Pneumonia, Sleep Apnea/CPAP/BIPAP, Thyroid Disorder Additional Past Medical History / Comment(s): "electrical heart attack", PUD, hypothyroid, low back pain, rib fx, diverticulosis dx/benign polyp, Renal/Bone Ca Last Myocardial Infarction Date:: 2012 History of Any Multi-Drug Resistant Organisms: None Reported Past Surgical History: Back Surgery, Heart Catheterization, Orthopedic Surgery, Tonsillectomy, Tubal Ligation Additional Past Surgical History / Comment(s): 2012 cardiac cath-normal x2, 01/11/17 colonoscopy/benign polypectomy, ORIF LT FT, back x2, "lt NEPHRECTOMY d/t cancer". 09/30-heart cath-clear. dehiscence of incision with kidney surgery trigger finger repair rt hand Past Anesthesia/Blood Transfusion Reactions: Postoperative Nausea & Vomiting (PONV) Additional Past Anesthesia/Blood Transfusion Reaction / Comment(s): no hx blood transfusion. Anesthesia: elevation in blood pressure, aspirated after a surgery at [place]; Pt does not want propofol Past Psychological History: Anxiety, Depression Additional Psychological History / Comment(s): and lives with the . Does not work outside of the home. Has pet dogs at home Smoking Status: Former smoker Past Alcohol Use History: None Reported Additional Past Alcohol Use History / Comment(s): Pt started smoking in 1971 smoked <1 ppd and quit may 2017 - Past Family History Mother Family Medical History: Hyperlipidemia Additional Family Medical History / Comment(s): Mother was healthy and lived to be 92 yrs. old. alcohol abuse Father History Unknown: Yes Family Medical History: Chest Pain / Angina Medications and Allergies Home Medications Medication Instructions Recorded Confirmed Type ALPRAZolam [Xanax] 0.5 mg PO TID 07/08/17 08/29/24 History Atorvastatin [Lipitor] 40 mg PO DAILY 09/23/20 08/29/24 History Levothyroxine Sodium 137 mcg PO MOTUWETHFRSA 09/23/20 08/29/24 History Apixaban [Eliquis] 5 mg PO BID 09/01/22 08/29/24 History Fesoterodine Fumarate 8 mg PO DAILY 09/28/23 08/29/24 History [Fesoterodine Fumarate ER] Isosorbide Mononitrate ER [Imdur] 30 mg PO DAILY 09/28/23 08/29/24 History Metoprolol Succinate (ER) [Toprol 25 mg PO DAILY 09/28/23 08/29/24 History XL] Ergocalciferol [Vitamin D2 (1250 1,250 mcg PO INGRAM 04/10/24 08/29/24 History Mcg = 74223 Iu)] Escitalopram [Lexapro] 10 mg PO DAILY 08/08/24 08/29/24 History Ipilimumab [Yervoy] 1 dose IV Q21D 08/08/24 08/29/24 History Nivolumab [Opdivo] 1 dose IV Q21D 08/08/24 08/29/24 History Omeprazole [PriLOSEC] 20 mg PO DAILY 08/08/24 08/29/24 History Ondansetron Odt [Zofran ODT] 8 mg PO Q8HR PRN 08/08/24 08/29/24 History Amiodarone [Cordarone] 200 mg PO BID #60 tab 08/14/24 08/29/24 Rx Losartan [Cozaar] 50 mg PO BID #60 tab 08/14/24 08/29/24 Rx Potassium Chloride ER [K-Dur 20] 20 meq PO DAILY 30 Days #30 tab 08/14/24 08/29/24 Rx amLODIPine [Norvasc] 10 mg PO DAILY #30 tab 08/14/24 08/29/24 Rx levETIRAcetam [Keppra] 500 mg PO Q12HR #60 tab 08/14/24 08/29/24 Rx Aspirin EC [Ecotrin Low Dose] 81 mg PO DAILY 08/29/24 08/29/24 History Lactulose 10 gm PO BID PRN 08/29/24 08/29/24 History Morphine Sulfate Ir [MSIR] 15 mg PO Q6H 08/29/24 08/29/24 History calcitrioL [Rocaltrol] 0.25 mcg PO DAILY 08/29/24 08/29/24 History Allergies Allergy/AdvReac Type Severity Reaction Status Date / Time fentanyl Allergy Unknown Verified 08/29/24 15:57 Sulfa (Sulfonamide Allergy Rash/Hives Verified 08/29/24 15:57 Antibiotics) NSAIDS (Non-Steroidal AdvReac NO NSAIDS Verified 08/29/24 15:57 Anti-Inflamma DUE TO ONLY 1 KIDNEY Physical Examination - Vital Signs Vital Signs: Vital Signs Temp Pulse Resp BP Pulse Ox 09/03/24 12:25 97.8 F 91 16 112/76 94 L 09/03/24 09:20 97 19 107/74 98 09/03/24 07:06 98.1 F 95 16 96/68 91 L 09/03/24 01:03 97.4 F L 93 18 104/69 94 L 09/02/24 17:41 98.2 F 91 16 105/71 95 Intake and Output 09/03/24 09/03/24 09/03/24 06:59 14:59 22:59 Intake Total 240 Output Total 1950 250 Intake: Oral 240 Output: Urine 1950 250 Uretheral (Velasquez) 250 Other: Voiding Method Indwelling Catheter Patient is an elderly female, who is severely encephalopathic, very groggy. Patient is severely encephalopathic, mumbling, not able to answer any question. patient states the month is 25 and the year is 55. She keeps her eyes closed, but does open it on asking questions. Attention, concentration and fund of knowledge are all severely limited. patient not able to tell current month or year. On cranial nerve examination, pupils are equal, round and reacting to light. Patient not able to cooperate for visual field testing. Extraocular muscles are intact with no nystagmus. Face is symmetric. lower cranial nerves cannot be assessed because of his noncooperation. On muscle strength testing, patient does not cooperate with examination. She does not hold her arms up and brings it down to the bed very fast. Her biceps, triceps and gaming associate are normal 5/5. Deltoids are 3+ with giveaway weakness. Patient did not cooperate for testing of the lower limbs. She was able to wiggle her feet at the ankles, and move her legs but very equally. Ankle mov ement appears normal, but had more gross movements proximally. Deep tendon reflexes are symmetric 1 at the biceps, 1 brachioradialis, 2 at the knees and plantars probable downgoing. Sensory to touch is equal. she did not cooperative much. Cerebellar function showed no ataxia for [id number] testing. She did not cooperate for [id number] testing on either side. Tone and bulk of muscles nor mal. Gait deferred.. On general examination, there is no carotid bruit or murmur, S1-S2 audible. Chest is clear on consultation. Abdomen is soft nontender. No organomegaly, bowel sounds present. Peripheral pulses are present. No peripheral edema. Results - Laboratory Findings CBC and BMP: 09/02/24 06:35 09/03/24 09:50 Abnormal Lab Findings: Abnormal Labs 08/29/24 08/29/24 08/29/24 13:05 13:05 13:05 WBC RBC Hgb Hct RDW MPV 8.9 L Immature Gran # 0.21 H Neutrophils # Lymphocytes # Eosinophils # Metamyelocytes # (Man) 0.08 H Myelocytes # (Manual) 0.08 H PT INR Sodium 123 L Potassium Chloride 90 L Carbon Dioxide 21 L Anion Gap BUN 19 H Creatinine 1.59 H BUN/Creatinine Ratio Glucose 128 H POC Glucose (mg/dL) Osmolality Plasma Lactic Acid Yg 2.5 H* Calcium Total Protein Albumin Albumin/Globulin Ratio Cortisol Ur Random Sodium Stool Lactoferrin 08/29/24 08/29/24 08/29/24 13:05 13:08 14:05 WBC RBC Hgb Hct RDW MPV Immature Gran # Neutrophils # Lymphocytes # Eosinophils # Metamyelocytes # (Man) Myelocytes # (Manual) PT 12.6 H INR 1.2 H Sodium Potassium Chloride Carbon Dioxide Anion Gap BUN Creatinine BUN/Creatinine Ratio Glucose POC Glucose (mg/dL) 135 H Osmolality 270 L Plasma Lactic Acid Yg Calcium Total Protein Albumin Albumin/Globulin Ratio Cortisol Ur Random Sodium Stool Lactoferrin 08/29/24 08/30/24 08/30/24 18:08 07:35 07:35 WBC RBC 3.94 L Hgb 11.3 L Hct 33.6 L RDW 15.4 H MPV 8.6 L Immature Gran # 0.20 H Neutrophils # 8.33 H Lymphocytes # 0.46 L Eosinophils # 0.02 L Metamyelocytes # (Man) Myelocytes # (Manual) PT INR Sodium 117 L* Potassium 3.2 L Chloride 93 L Carbon Dioxide 15 L Anion Gap BUN Creatinine BUN/Creatinine Ratio Glucose 101 H POC Glucose (mg/dL) Osmolality Plasma Lactic Acid Yg Calcium 8.1 L Total Protein Albumin Albumin/Globulin Ratio Cortisol Ur Random Sodium <20 L Stool Lactoferrin 08/30/24 08/30/24 08/31/24 14:52 20:44 05:47 WBC RBC 3.98 L Hgb 11.4 L Hct 33.5 L RDW 15.8 H MPV 9.0 L Immature Gran # Neutrophils # Lymphocytes # Eosinophils # Metamyelocytes # (Man) Myelocytes # (Manual) PT INR Sodium 120 L Potassium Chloride Carbon Dioxide Anion Gap BUN Creatinine BUN/Creatinine Ratio Glucose POC Glucose (mg/dL) Osmolality Plasma Lactic Acid Yg Calcium Total Protein Albumin Albumin/Globulin Ratio Cortisol Ur Random Sodium Stool Lactoferrin Positive A 08/31/24 08/31/24 09/01/24 05:47 10:41 06:54 WBC RBC 3.89 L Hgb 11.2 L Hct 32.5 L RDW 15.8 H MPV 9.0 L Immature Gran # Neutrophils # Lymphocytes # Eosinophils # Metamyelocytes # (Man) Myelocytes # (Manual) PT INR Sodium 122 L 119 L* Potassium Chloride 92 L Carbon Dioxide 21.0 L Anion Gap BUN 7.2 L Creatinine BUN/Creatinine Ratio 8.00 L Glucose POC Glucose (mg/dL) Osmolality Plasma Lactic Acid Yg Calcium 8.4 L Total Protein 5.2 L Albumin 2.7 L Albumin/Globulin Ratio 1.08 L Cortisol Ur Random Sodium Stool Lactoferrin 09/01/24 09/01/24 09/01/24 06:54 08:05 14:20 WBC RBC Hgb Hct RDW MPV Immature Gran # Neutrophils # Lymphocytes # Eosinophils # Metamyelocytes # (Man) Myelocytes # (Manual) PT INR Sodium 121 L 119 L* 120 L Potassium Chloride 90 L Carbon Dioxide Anion Gap BUN Creatinine BUN/Creatinine Ratio 35.14 H Glucose POC Glucose (mg/dL) Osmolality Plasma Lactic Acid Yg Calcium Total Protein 5.1 L Albumin 2.5 L Albumin/Globulin Ratio 0.96 L Cortisol Ur Random Sodium Stool Lactoferrin 09/01/24 09/02/24 09/02/24 20:45 06:35 06:35 WBC 10.29 H RBC Hgb 11.7 L Hct 34.7 L RDW 15.9 H MPV 9.0 L Immature Gran # Neutrophils # Lymphocytes # Eosinophils # Metamyelocytes # (Man) Myelocytes # (Manual) PT INR Sodium 121 L 125 L Potassium Chloride 91 L Carbon Dioxide 21.3 L Anion Gap 12.70 H BUN 37.7 H Creatinine BUN/Creatinine Ratio 37.70 H Glucose 112 H POC Glucose (mg/dL) Osmolality Plasma Lactic Acid Yg Calcium Total Protein 5.6 L Albumin 2.7 L Albumin/Globulin Ratio 0.93 L Cortisol Ur Random Sodium Stool Lactoferrin 09/02/24 09/03/24 09/03/24 10:43 04:23 09:50 WBC RBC Hgb Hct RDW MPV Immature Gran # Neutrophils # Lymphocytes # Eosinophils # Metamyelocytes # (Man) Myelocytes # (Manual) PT INR Sodium 124 L 136 L Potassium Chloride Carbon Dioxide Anion Gap BUN 48 H Creatinine BUN/Creatinine Ratio Glucose 121 H POC Glucose (mg/dL) Osmolality Plasma Lactic Acid Yg Calcium 10.6 H Total Protein Albumin Albumin/Globulin Ratio Cortisol 55.5 H Ur Random Sodium Stool Lactoferrin Assessment and Plan Assessment: * Altered mental status, likely due to toxic metabolic encephalopathy. Possibly related to side effect of immunotherapy. Rule out worsening of PRES, rule out CVA, or metastatic disease. * Leukocytosis, rule out septic encephalopathy. * Hyponatremia * Metastatic renal cell carcinoma * Possible new onset seizure 08/09/2024 * Hypertension * Hyperlipidemia * Coronary artery disease * Sleep apnea Plan: * MRI brain with and without contrast evaluate for above possibilities * EEG, assess for encephalopathy * Continue Keppra 500 mg twice a day. * Oncology, nephrology following. * Dr. Jasvir Weeks to resume neurology service in the morning. * Thank you for the consult. Time with Patient: Greater than 30
--- NOTE | 2024-09-04 08:49 | P.PN ---
Subjective Progress Note Date: 09/04/24 This is a 69-year-old female with a known history of metastatic renal cell carcinoma who presented to the emergency department with hyponatremia. Sodium is slowly improving. Patient reports she is still feeling fatigued today. Nephrology and oncology are on consult. 09/04/2024 Patient seen this morning laying in bed, drowsy. Patient's confusion worsened over the weekend. EEG and MRI have been ordered. present at bedside. Her sodium has stabilized. Objective - Vital Signs Vital signs: Vital Signs Temp 98.2 F 09/04/24 07:03 Pulse 65 09/04/24 07:03 Resp 16 09/04/24 07:03 BP 110/75 09/04/24 07:03 Pulse Ox 92 L 09/04/24 07:03 FiO2 Intake & Output 09/03/24 09/04/24 09/04/24 18:59 06:59 18:59 Intake Total 2040 Output Total 3050 2200 250 Balance -1010 -2200 -250 Intake: Oral 2040 Output: Urine 3050 2200 250 Uretheral (Velasquez) 250 250 Other: Voiding Method Indwelling Catheter Indwelling Catheter # Bowel Movements 1 - Constitutional General appearance: Present: no acute distress - EENT Eyes: Present: PERRLA - Neck Neck: Present: normal ROM. Absent: lymphadenopathy, rigidity - Respiratory Respiratory: bilateral: CTA - Cardiovascular Heart sounds: normal: S1, S2 - Gastrointestinal General gastrointestinal: Present: soft. Absent: tenderness - Integumentary Integumentary: Present: normal, normal turgor - Psychiatric Psychiatric Comment(s): drowsy - Labs CBC & Chem 7: 09/02/24 06:35 09/03/24 09:50 Labs: Abnormal Lab Results - Last 24 Hours (Table) 09/03/24 09/03/24 09/03/24 Range/Units 04:23 09:50 20:12 Sodium 136 L (137-145) mmol/L BUN 48 H (7-17) mg/dL Glucose 121 H (74-99) mg/dL POC Glucose (mg/dL) 124 H (70-110) mg/dL Calcium 10.6 H (8.4-10.2) mg/dL Cortisol 55.5 H (3.1-22.4) UG/DL Microbiology - Last 24 Hours (Table) 08/30/24 20:44 Stool Culture - Final Stool Assessment and Plan (1) Hyponatremia Current Visit: Yes Status: Acute Code(s): E87.1 - HYPO-OSMOLALITY AND HYPONATREMIA SNOMED Code(s): 72531094 (2) Renal cell carcinoma Current Visit: Yes Status: Acute Code(s): C64.9 - MALIGNANT NEOPLASM OF UNSP KIDNEY, EXCEPT RENAL PELVIS SNOMED Code(s): 848654079 (3) History of anxiety Current Visit: No Status: Acute Code(s): Z86.59 - PERSONAL HISTORY OF OTHER MENTAL AND BEHAVIORAL DISORDERS SNOMED Code(s): 259668325 (4) Hypertension Current Visit: No Status: Acute Code(s): I10 - ESSENTIAL (PRIMARY) HYPERTENSION SNOMED Code(s): 90452077 Plan: Check CBC and CMP in the morning. Appreciate multiple consultants and await further testing. Patient seen and evaluated by nurse practitioner, physician in agreement with plan.
--- NOTE | 2024-09-04 09:25 | P.PN ---
Subjective Patient is seen in follow-up for hyponatremia. Sodium level 136 yesterday. GFR at baseline. Undergoing EEG. present at bedside. General: No acute distress HEENT: Undergoing EEG. Heart: Regular rate rhythm Lungs: No audible rhonchi or wheezes. Abdomen: No distention Extremities: No edema. Objective - Vital Signs Vital signs: Vital Signs Temp 98.2 F 09/04/24 07:03 Pulse 65 09/04/24 07:03 Resp 16 09/04/24 07:03 BP 110/75 09/04/24 07:03 Pulse Ox 92 L 09/04/24 07:03 FiO2 Intake & Output 09/03/24 09/04/24 09/04/24 18:59 06:59 18:59 Intake Total 2040 Output Total 3050 2200 250 Balance -1010 -2200 -250 Intake: Oral 0 Output: Urine 3050 2200 250 Uretheral (Velasquez) 250 250 Other: Voiding Method Indwelling Catheter Indwelling Catheter # Bowel Movements 1 - Labs CBC & Chem 7: 09/02/24 06:35 09/03/24 09:50 Labs: Abnormal Lab Results - Last 24 Hours (Table) 09/03/24 09/03/24 09/03/24 Range/Units 04:23 09:50 20:12 Sodium 136 L (137-145) mmol/L BUN 48 H (7-17) mg/dL Glucose 121 H (74-99) mg/dL POC Glucose (mg/dL) 124 H (70-110) mg/dL Calcium 10.6 H (8.4-10.2) mg/dL Cortisol 55.5 H (3.1-22.4) UG/DL Microbiology - Last 24 Hours (Table) 08/30/24 20:44 Stool Culture - Final Stool Assessment and Plan Plan: Assessment: 1. Hyponatremia, initially hypovolemic. Component of SIADH. Status post Samsca and salt tabs this admission. Sodium level 136 yesterday. Urine sodium less than 20 and urine osmolality 322. TSH normal. Cortisol level not low. 2. 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 3. History of left nephrectomy secondary to malignancy. 4. Stage IV renal cancer with bone metastasis. 5. Hypercalcemia secondary to vitamin D and calcitriol. Plan: Stop urea for now. Stop vitamin D and calcitriol. Follow-up morning labs.
[2024-09-04 09:58] LABS: African American GFR (CKD) 67 (>60 ml/min/1.73 sqM); Anion Gap 12 mmol/L; Blood Urea Nitrogen 60 mg/dL (7-17); Calcium 10.8 mg/dL (8.4-10.2); Carbon Dioxide 25 mmol/L (22-30); Chloride 112 mmol/L (98-107); Glucose 110 mg/dL (74-99); Magnesium 2.6 mg/dL (1.6-2.3); Non-African American GFR(CKD) 58 (>60 ml/min/1.73 sqM); Potassium 4.4 mmol/L (3.5-5.1); Sodium 149 mmol/L (137-145)
[2024-09-04] MEDS: ACETAMINOPHEN IV (For NPO) 1,000 MG in EMPTY BAG 1 BAG IVPB PRN (13:00)
[2024-09-04 13:04] LABS: ALT 23 U/L (4-34); AST 25 U/L (14-36); African American GFR (CKD) 79 (>60 ml/min/1.73 sqM); Albumin 2.6 g/dL (3.5-5.0); Albumin/Globulin Ratio 0.8; Alkaline Phosphatase 106 U/L (38-126); Anion Gap 13 mmol/L; Bilirubin,Unconjugated 0.2 mg/dL (0.0-1.1); Blood Urea Nitrogen 60 mg/dL (7-17); Calcium 10.7 mg/dL (8.4-10.2); Carbon Dioxide 25 mmol/L (22-30); Chloride 114 mmol/L (98-107); Globulin 3.2 g/dL; Glucose 107 mg/dL (74-99); Non-African American GFR(CKD) 68 (>60 ml/min/1.73 sqM); Potassium 4.7 mmol/L (3.5-5.1); Sodium 152 mmol/L (137-145); Total Protein 5.8 g/dL (6.3-8.2)
[2024-09-04] MEDS: DEXTROSE 5% IN WATER 1,000 ML IV SCH (13:48)
[2024-09-04 13:55] LABS: Glucose,Whole Blood 168 mg/dL (70-110)
[2024-09-04 14:07] LABS: ABG HCO3 25 mmol/L (21-25); ABG PCO2 35 mmHg (35-45); ABG PH 7.46 (7.35-7.45); ABG PO2 81 mmHg (83-108); ABG TCO2 26 mmol/L (19-24); Allen Test Performed? Yes
--- NOTE | 2024-09-04 14:49 | P.PN ---
Subjective Progress Note Date: 09/04/24 Principal diagnosis: Hyponatremia, on treatment for RCC Pt is incoherent today, calling out, though when I asked her how she was feeling she shrugged her shoulders. Objective - Vital Signs Vital signs: Vital Signs Temp 98.2 F 09/04/24 07:03 Pulse 65 09/04/24 07:03 Resp 16 09/04/24 07:03 BP 110/75 09/04/24 07:03 Pulse Ox 92 L 09/04/24 07:03 FiO2 Intake & Output 09/03/24 09/04/24 09/04/24 18:59 06:59 18:59 Intake Total 0 Output Total 3050 2200 250 Balance -1010 -2200 -250 Intake: Oral 2039 Output: Urine 3050 2200 250 Uretheral (Velasquez) 250 250 Other: Voiding Method Indwelling Catheter Indwelling Catheter Indwelling Catheter # Bowel Movements 1 - Constitutional General appearance: Present: disheveled, mild distress - EENT ENT: Present: hearing grossly normal - Respiratory Respiratory: bilateral: CTA - Cardiovascular Details: radial pulse 2+, regular - Peripheral edema leg Peripheral Edema: bilateral: None - Gastrointestinal General gastrointestinal: Present: distended, soft - Integumentary Integumentary: Present: normal - Musculoskeletal Musculoskeletal: Present: generalized weakness - Psychiatric Psychiatric: Absent: A&O x's 3, appropriate affect, intact judgment & insight - Labs CBC & Chem 7: 09/02/24 06:35 09/04/24 12:37 Labs: Abnormal Lab Results - Last 24 Hours (Table) 09/03/24 09/04/24 Range/Units 20:12 09:26 Sodium 149 H (137-145) mmol/L Chloride 112 H (98-107) mmol/L BUN 60 H (7-17) mg/dL Glucose 110 H (74-99) mg/dL POC Glucose (mg/dL) 124 H (70-110) mg/dL Calcium 10.8 H (8.4-10.2) mg/dL Magnesium 2.6 H (1.6-2.3) mg/dL Assessment and Plan (1) Altered mental status Current Visit: Yes Status: Acute Priority: High Code(s): R41.82 - ALTERED MENTAL STATUS, UNSPECIFIED SNOMED Code(s): 950437256 (2) Dehydration Current Visit: Yes Status: Acute Priority: High Code(s): E86.0 - DEHYDRATION SNOMED Code(s): 71392231 (3) Hyponatremia Current Visit: Yes Status: Acute Priority: High Code(s): E87.1 - HYPO- OSMOLALITY AND HYPONATREMIA SNOMED Code(s): 80984884 (4) Hypercalcemia Current Visit: Yes Status: Acute Priority: High Code(s): E83.52 - HYPERCALCEMIA SNOMED Code(s): 76895832 (5) Renal cell carcinoma Current Visit: Yes Status: Acute Priority: High Code(s): C64.9 - MALIGNANT NEOPLASM OF UNSP KIDNEY, EXCEPT RENAL PELVIS SNOMED Code(s): 769604818 Plan: Dehydration, diarrhea, LAUREL Admitted with diarrhea, dehydration, weakness, and hyponatremia -Cr improved with hydration, BUN slightly worse today. -Sodium 136 this AM. On recheck x 2-Na+149, 153. Na+ supplements stopped, Nephrology modifying medications/fluids -Stool studies neg, cdiff neg. Lactoferritin positive-clear liquids ordered, clear liq supplement drink ordered. Pt too confused currently for oral intake -LFTs checked, WNL Electrolyte derangements -hyponatremia, levels improved today but cont to climb. Nephrology following -Hypercalcemia-pamidronate ordered -Lab rechecks in AM Metastatic renal cell carcinoma - Diagnosis and treatment as stated in HPI - Metastatic RCC, bone only. Treated by Orthopedic Oncology to prevent a pathological fracture rt femur. She has had radiation to the area. - She was started on dual immunotherapy, with Opdivo/yervoy. S/p cycle 3 on 08/21. - No further treatment with dual IO planned at this time. 1445-pt going to be transferred to ICU for increased RR. CT abd was requested for abd distension, order placed.
--- NOTE | 2024-09-04 15:26 | P.PN ---
Subjective Progress Note Date: 09/04/24 I am seeing the patient for the first time during this admission. Please refer to Dr. Lopez's note for further details. it seems patient has Altered mental status due to toxic-metabolic encephalopathy. Her sodium is trending up, blood pressure is on slightly low side. Unable to obtain MRI since unable to have MRI clearance sheet filled per nurse. Objective - Vital Signs Vital signs: Vital Signs Temp 97.3 F L 09/04/24 14:00 Pulse 100 09/04/24 14:00 Resp 34 H 09/04/24 14:00 BP 97/64 09/04/24 14:00 Pulse Ox 93 L 09/04/24 14:12 FiO2 Intake & Output 09/03/24 09/04/24 09/04/24 18:59 06:59 18:59 Intake Total 0 1880 Output Total 3050 2200 1250 Balance -1010 -2200 630 Intake: Oral 2039 1880 Output: Urine 3050 2200 1250 Uretheral (Velasquez) 250 1250 Other: Voiding Method Indwelling Catheter Indwelling Catheter Indwelling Catheter # Bowel Movements 1 2 - Exam General: Laying in bed and does not appear in acute distress. Appears pale and lethargic. Neuro: Very limited. Is severely drowsy but is briefly awakeable to voice and states hospital. Is oriented to self. Is following simple commands such as smiling, showing thumbs up and wiggling toes. No facial weakness from limitation of examination. Able to show thumbs up but unable to assess individual muscle strength because of overall condition/cooperation. - Labs CBC & Chem 7: 09/02/24 06:35 09/04/24 12:37 Labs: Abnormal Lab Results - Last 24 Hours (Table) 09/03/24 09/04/24 09/04/24 Range/Units 20:12 09:26 12:37 ABG pH (7.35-7.45) ABG pO2 (83-108) mmHg ABG Total CO2 (19-24) mmol/L Sodium 149 H 152 H (137-145) mmol/L Chloride 112 H 114 H (98-107) mmol/L BUN 60 H 60 H (7-17) mg/dL Glucose 110 H 107 H (74-99) mg/dL POC Glucose (mg/dL) 124 H (70-110) mg/dL Calcium 10.8 H 10.7 H (8.4-10.2) mg/dL Magnesium 2.6 H (1.6-2.3) mg/dL Total Protein 5.8 L (6.3-8.2) g/dL Albumin 2.6 L (3.5-5.0) g/dL 09/04/24 09/04/24 Range/Units 13:54 13:56 ABG pH 7.46 H (7.35-7.45) ABG pO2 81 L (83-108) mmHg ABG Total CO2 26 H (19-24) mmol/L Sodium (137-145) mmol/L Chloride (98-107) mmol/L BUN (7-17) mg/dL Glucose (74-99) mg/dL POC Glucose (mg/dL) 168 H (70-110) mg/dL Calcium (8.4-10.2) mg/dL Magnesium (1.6-2.3) mg/dL Total Protein (6.3-8.2) g/dL Albumin (3.5-5.0) g/dL Assessment and Plan Assessment: * Altered mental status, likely due to toxic metabolic encephalopathy. Initi ally sodium is low and now Sodium is high, blood pressure is on low normal side and is low normal/border hypoxic (oxygen in low 90's). Also, possibly related to side effect of immunotherapy. Rule out worsening of PRES, rule out CVA, or metastatic disease. * Leukocytosis, rule out septic encephalopathy. * Hyponatremia-->Hypernatremia * Metastatic renal cell carcinoma * Possible new onset seizure 08/09/2024 * Hypertension * Hyperlipidemia * Coronary artery disease * Sleep apnea Plan: * MRI brain with and without contrast evaluate for above possibilities. Unable to obtain because cannot obtain clearance for DC * EEG, assess for encephalopathy * Continue Keppra 500 mg twice a day. * Oncology, nephrology following. * Will defer the rest of medical management to primary team and other specialist. ADDENDUM: In the afternoon, the nurse, stated the patient overall condition is worse and more lethargic and more confused. I reassessed the patient again and she is about the same. Will obtain a repeat CT head. Time with Patient: Less than 30
[2024-09-04 15:37] LABS: Glucose,Whole Blood 213 mg/dL (70-110)
[2024-09-04] MEDS: DESMOPRESSIN ACETATE 4 MCG/ML VIAL (MDV) SQ ONE (15:44)
[2024-09-04] MEDS: SODIUM CHLORIDE 0.9% 250 ML with PAMIDRONATE 30 MG IV ONE (15:46)
--- NOTE | 2024-09-04 15:54 | CT ---
EXAMINATION TYPE: CT brain wo con CT DLP: 1079.0 mGycm, Automated exposure control for dose reduction was used. DATE OF EXAM: 09/04/2024 3:38 PM COMPARISON: CT brain 08/29/2024, 08/08/2024, MR brain 08/09/2024, 05/10/2024 CLINICAL INDICATION:Female, 69 years old with history of altered mental status, AMS TECHNIQUE: Brain: Multiple axial CT images of the brain were obtained without IV contrast. . Coronal and sagitta l reformats reviewed. FINDINGS: Brain: Extra-axial spaces: No abnormal extra-axial fluid collections. Ventricular system: Within normal limits Cerebral parenchyma: No acute intraparenchymal hemorrhage or mass effect. The loomis-white junction is well differentiated. Scattered hypoattenuating areas are seen within the periventricular white matte r. Cerebellum: Unremarkable. Mass effect: No evidence of midline shift. Intracranial vasculature: unremarkable Soft tissues: Normal. Calvarium/osseous structures: No depressed skull fracture. Paranasal sinuses and mastoid air cells: The mastoid air cells are clear. Inferior bilateral maxillar y sinus mucus retention cysts with largest on the left measuring up to 1.6 cm. The remaining paranasa l sinuses are clear. Visualized orbits: Orbital contents are intact. IMPRESSION: 1. No acute intracranial process. 2. Nonspecific minimal white matter changes, likely secondary to chronic small vessel ischemic diseas e. [facility], , 09/04/2024 3:51 PM
--- NOTE | 2024-09-04 16:03 | CT ---
EXAMINATION TYPE: CT abdomen pelvis wo con CT DLP: 762.3 mGycm, Automated exposure control for dose reduction was used. DATE OF EXAM: 09/04/2024 3:38 PM COMPARISON: CT abdomen and pelvis 09/03/2024, CT chest abdomen and pelvis 08/08/2024, PET CT 06/22/2024 CLINICAL INDICATION:Female, 69 years old with history of abdominal distention; AMS, ABDOMINAL DISTENS ION TECHNIQUE: Standard CT of the abdomen and pelvis without IV or oral contrast. Lack of IV or oral co ntrast limits evaluation of solid and hollow organ viscera. Coronal and sagittal reformats were perfo rmed. FINDINGS: LOWER CHEST: Similar streaky atelectasis within the right lung base. Mild coronary artery atheroscler osis. Elevation of the right hemidiaphragm. ABDOMEN LIVER: Unremarkable noncontrast appearance. GALLBLADDER AND BILE DUCTS: Layering increased densities within the lumen consistent with gallstones are present. No biliary ductal dilatation. PANCREAS: Unremarkable noncontrast appearance. SPLEEN: Unremarkable noncontrast appearance. ADRENAL GLANDS: Unremarkable noncontrast appearance.. KIDNEYS AND URETERS: Left kidney appears surgically absent. No suspicious soft tissue within the surg ical bed. No evidence of hydronephrosis or obstructing renal calculus. The ureters are unremarkable. The inferior pole renal cysts with largest measuring 3.7 cm. Appears simple. No follow-up recommen ded. PELVIS BLADDER: Nondistended with Velasquez catheter in place. REPRODUCTIVE: Unremarkable noncontrast appearance. ABDOMEN & PELVIS STOMACH AND BOWEL: Stomach and duodenum appear unremarkable. The appendix is within normal limits. Fl uid and gas filled colon without focal transition point extending from the rectum the sigmoid colon m easures approximately 7.8 cm in diameter and is fluid-filled. The transverse colon measures up to 8.2 cm in entirely gas filled.Findings are overall similar to prior exam. Some mesenteric edema identifi ed again. PERITONEUM/RETROPERITONEUM: No evidence of pneumoperitoneum or free fluid. VASCULATURE: Mild atherosclerotic calcifications are present throughout the abdominal aorta and its b ranches. No evidence of aortic aneurysm. MUSCULOSKELETAL: No acute osseous abnormalities. Moderate disc degeneration changes are present throu ghout the thoracolumbar spine. Dextrocurvature of the lumbar spine with apex at L2-L3. Fixation hardw are involving the right proximal femur with proximal diaphyseal previously seen pathologic fracture a nd lytic lesion. Fixation of L5-S1 on the right with pedicular screws and raymundo. Hardware appears intac t. At least severe L4-L5 right neural foraminal stenosis. Partial visualization again of lytic lesion in the T6 vertebral body. LYMPH NODES: No gross evidence for lymphadenopathy. SOFT TISSUE/ABDOMINAL WALL: Unremarkable IMPRESSION: 1. Similar significantly distended gas and fluid-filled colon without focal transition point extendi ng from the rectum. Correlate for a colonic ileus versus Littleton's syndrome. 2. Partial visualization of T6 vertebral body lytic lesion again. This is suspicious for metastatic disease/malignancy until proven otherwise. 3. Surgically absent left kidney. No suspicious soft tissue mass in the surgical bed. 4. Simple appearing right renal cyst no follow-up recommended. 5. Fixation hardware in the right femur and spine appear intact. Right proximal femur pathologic fra cture with lytic lesion redemonstrated. Favored to represent metastasis. [facility], , 09/04/2024 4:01 PM
--- NOTE | 2024-09-04 16:26 | XR ---
EXAMINATION TYPE: XR chest 1V portable DATE OF EXAM: 09/04/2024 4:18 PM COMPARISON: 08/29/2024 CLINICAL INDICATION: Female, 69 years old with history of Tube placement, TECHNIQUE: XR chest 1V portable views of the chest are obtained. FINDINGS: Endotracheal tube is well-positioned. An NG tube is seen coursing into the stomach. Lung volumes are slightly diminished. No evidence for pneumothorax. There is no evidence for focal infiltrate. The heart is stable. Hilar and mediastinal structures are within normal limits. Degenerative changes are seen of the dorsal spine. IMPRESSION: 1. Endotracheal tube is well-positioned. An NG tube is seen coursing into the stomach. Lung volumes are slightly diminished. [facility], , 09/04/2024 4:23 PM
[2024-09-04] MEDS: NOREPINEPHRINE 8 MG in SODIUM CHLORIDE 0.9% 250 ML IV SCH (16:50)
[2024-09-04 16:57] LABS: ABG HCO3 26 mmol/L (21-25); ABG PCO2 34 mmHg (35-45); ABG PH 7.48 (7.35-7.45); ABG PO2 358 mmHg (83-108); ABG TCO2 27 mmol/L (19-24)
[2024-09-04] MEDS: levETIRAcetam IV 500 MG/5 ML VIAL IVP SCH (17:23)
--- NOTE | 2024-09-04 17:32 | P.CNPUL ---
History of Present Illness Consult date: 08/28/24 Requesting physician: Noble Lopez Reason for consult: hypoxemia, other Chief complaint: Weakness History of present illness: This is a 69-year-old female with history of renal cell carcinoma diagnosed in 2018, previous left nephrectomy no systemic treatment has been given. In April 09, 2001 5, patient developed right hip pain and difficulty bearing weight on her right lower extremity. MRI of the right femur thigh showed interosseous mass in the subcu trochanteric and intertrochanteric region of the right femur measuring 59 x 37 mm. Patient was felt to have bone lesion representing isolated metastasis from renal cell carcinoma. CT-guided biopsy and embolization on 04/2201 5 was done followed by debridement and prophylactic nail placement. Biopsy came back consistent with RCC clear cell type. Systemic treatment recommended for metastatic disease, and this was done patient received 3 cycles of chemotherapy utilizing dual CTL A4/PD-L1 inhibitor treatment. Patient was admitted this time on 08/29/2024, admitted mostly with symptoms of weakness and she was felt to be dehydrated she also had worsening diarrhea she complained of blurred vision as well as headache CT brain showed negative finding for acute intracranial process. Patient has been seen since admission by many consultants including oncology, nephrology, ophthalmology, neurology, patient was initially admitted with hyponatremia as low as 117 she was seen by nephrology received treatment, and eventually her sodium came back up, continues to rise as high as 152 and today's sodium is 146. Calcium level has been fl uctuating from 9.5 on admission today it is 10.8. Today I was notified about this patient because the rapid response team responded because of her worsening mental status/altered mental status associated with dehydration hyponatremia hypercalcemia in the setting of metastatic renal cell carcinoma. In addition to all of this the patient has been developing abdominal distention and what seems to be almost Saurabh syndrome noted on CT of the abdomen and pelvis. Patient was having episodes of apnea brought into the ICU and shortly after because of her apnea episodes I recommended intubation and mechanical ventilation. She is now intubated, mechanically ventilated, ABG is pending however ABG prior to intubation showed a pO2 of 81 pCO2 35 pH of 7.46. Follow-up ABG is pending. Chest x-ray postintubation showed endotracheal tube in proper position, nasogastric tube in the stomach, lung volumes are slightly diminished but no acute process or infiltrate is noted. CT abdomen pelvis showed distended gas and fluid-filled colon without focal transition point extending from the rectum correlation for a colonic ileus versus [place] syndrome. T6 vertebral body showed lytic lesions suspicious for metastatic disease there is absent left kidney because of his previous nephrectomy there is also fixation hardware in the right femur and spine. After evaluating the patient in the ER, she was noted to be hypotensive postintubation fluid boluses were given in the form of LR and D5W I consulted general surgery to evaluate the patient for her abdominal distention. Labs were all reviewed. Review of Systems ROS unobtainable: due to endotracheal tube Past Medical History Past Medical History: Cancer, Chest Pain / Angina, Heart Failure, GERD/Reflux, Hyperlipidemia, Hypertension, Myocardial Infarction (NM), Pneumonia, Sleep Apnea/CPAP/BIPAP, Thyroid Disorder Additional Past Medical History / Comment(s): "electrical heart attack", PUD, hypothyroid, low back pain, rib fx, diverticulosis dx/benign polyp, Renal/Bone Ca Last Myocardial Infarction Date:: 2012 History of Any Multi-Drug Resistant Organisms: None Reported Past Surgical History: Back Surgery, Heart Catheterization, Orthopedic Surgery, Tonsillectomy, Tubal Ligation Additional Past Surgical History / Comment(s): 2012 cardiac cath-normal x2, 01/11/17 colonoscopy/benign polypectomy, ORIF LT FT, back x2, "lt NEPHRECTOMY d/t cancer". 09/30-heart cath-clear. dehiscence of incision with kidney surgery trigger finger repair rt hand Past Anesthesia/Blood Transfusion Reactions: Postoperative Nausea & Vomiting (PONV) Additional Past Anesthesia/Blood Transfusion Reaction / Comment(s): no hx blood transfusion. Anesthesia: elevation in blood pressure, aspirated after a surgery at [facility]; Pt does not want propofol Past Psychological History: Anxiety, Depression Additional Psychological History / Comment(s): and lives with the . Does not work outside of the home. Has pet dogs at home Smoking Status: Former smoker Past Alcohol Use History: None Reported Additional Past Alcohol Use History / Comment(s): Pt started smoking in 1971 smo ked <1 ppd and quit may 2017 - Past Family History Mother Family Medical History: Hyperlipidemia Additional Family Medical History / Comment(s): Mother was healthy and lived to be 92 yrs. old. alcohol abuse Father History Unknown: Yes Family Medical History: Chest Pain / Angina Medications and Allergies Home Medications Medication Instructions Recorded Confirmed Type ALPRAZolam [Xanax] 0.5 mg PO TID 07/08/17 08/29/24 History Atorvastatin [Lipitor] 40 mg PO DAILY 09/23/20 08/29/24 History Levothyroxine Sodium 137 mcg PO MOTUWETHFRSA 09/23/20 08/29/24 History Apixaban [Eliquis] 5 mg PO BID 09/01/22 08/29/24 History Fesoterodine Fumarate 8 mg PO DAILY 09/28/23 08/29/24 History [Fesoterodine Fumarate ER] Isosorbide Mononitrate ER [Imdur] 30 mg PO DAILY 09/28/23 08/29/24 History Metoprolol Succinate (ER) [Toprol 25 mg PO DAILY 09/28/23 08/29/24 History XL] Ergocalciferol [Vitamin D2 (1250 1,250 mcg PO INGRAM 04/10/24 08/29/24 History Mcg = [id number] Iu)] Escitalopram [Lexapro] 10 mg PO DAILY 08/08/24 08/29/24 History Ipilimumab [Yervoy] 1 dose IV Q21D 08/08/24 08/29/24 History Nivolumab [Opdivo] 1 dose IV Q21D 08/08/24 08/29/24 History Omeprazole [PriLOSEC] 20 mg PO DAILY 08/08/24 08/29/24 History Ondansetron Odt [Zofran ODT] 8 mg PO Q8HR PRN 08/08/24 08/29/24 History Amiodarone [Cordarone] 200 mg PO BID #60 tab 08/14/24 08/29/24 Rx Losartan [Cozaar] 50 mg PO BID #60 tab 08/14/24 08/29/24 Rx Potassium Chloride ER [K-Dur 20] 20 meq PO DAILY 30 Days #30 tab 08/14/24 08/29/24 Rx amLODIPine [Norvasc] 10 mg PO DAILY #30 tab 08/14/24 08/29/24 Rx levETIRAcetam [Keppra] 500 mg PO Q12HR #60 tab 08/14/24 08/29/24 Rx Aspirin EC [Ecotrin Low Dose] 81 mg PO DAILY 08/29/24 08/29/24 History Lactulose 10 gm PO BID PRN 08/29/24 08/29/24 History Morphine Sulfate Ir [MSIR] 15 mg PO Q6H 08/29/24 08/29/24 History calcitrioL [Rocaltrol] 0.25 mcg PO DAILY 08/29/24 08/29/24 History Allergies Allergy/AdvReac Type Severity Reaction Status Date / Time fentanyl Allergy Unknown Verified 08/29/24 15:57 Sulfa (Sulfonamide Allergy Rash/Hives Verified 08/29/24 15:57 Antibiotics) NSAIDS (Non-Steroidal AdvReac NO NSAIDS Verified 08/29/24 15:57 Anti-Inflamma DUE TO ONLY 1 KIDNEY Physical Exam Vitals: Vital Signs Temp Pulse Resp BP Pulse Ox FiO2 09/04/24 16:05 100 09/04/24 15:51 100 09/04/24 14:12 93 L 09/04/24 14:00 97.3 F L 100 34 H 97/64 92 L 09/04/24 13:50 34 H 09/04/24 12:34 97.8 F 99 20 92/67 91 L 09/04/24 07:03 98.2 F 65 16 110/75 92 L 09/04/24 01:12 97.7 F 98 18 97/65 90 L 09/03/24 19:11 98.1 F 97 19 106/71 92 L Intake and Output 09/04/24 09/04/24 09/04/24 06:59 14:59 22:59 Intake Total 1880 Output Total 1500 1250 Balance -1500 630 Intake: Oral 1880 Output: Urine 1500 1250 Uretheral (Velasquez) 1250 Other: Voiding Method Indwelling Catheter # Bowel Movements 2 Physical exam revealed a 69-year-old female intubated, sedated, not in distress. Head: Atraumatic, normocephalic HEENT: PERRLA, EOMI, nonicteric, no neck masses no JVD no stridor. Pulmonary: Diminished breath sounds at the bases no crackles rhonchi or wheezes Cardiac: Distant S1-S2, no S3 gallop. Abdomen: Distended, diminishe bowel sounds, tympanitic. Extremities no clubbing edema or cyanosis Neurologic: Could not assess, patient was just intubated and received narcotics and sedatives. Psychiatric: Could not assess. Results - Laboratory Findings CBC and BMP: 09/02/24 06:35 09/04/24 16:38 ABG ABG pH 7.46 (7.35-7.45) H 09/04/24 13:56 ABG pCO2 35 mmHg (35-45) 09/04/24 13:56 ABG pO2 81 mmHg (83-108) L 09/04/24 13:56 ABG O2 Saturation 95.0 % (94-97) 09/04/24 13:56 PT/INR, D-dimer PT 12.6 sec (10.0-12.5) H 08/29/24 14:05 INR 1.2 (<1.2) H 08/29/24 14:05 Abnormal lab findings: Abnormal Labs 08/29/24 08/29/24 08/29/24 13:05 13:05 13:05 WBC RBC Hgb Hct RDW MPV 8.9 L Immature Gran # 0.21 H Neutrophils # Lymphocytes # Eosinophils # Metamyelocytes # (Man) 0.08 H Myelocytes # (Manual) 0.08 H PT INR ABG pH ABG pO2 ABG Total CO2 Sodium 123 L Potassium Chloride 90 L Carbon Dioxide 21 L Anion Gap BUN 19 H Creatinine 1.59 H BUN/Creatinine Ratio Glucose 128 H POC Glucose (mg/dL) Osmolality Plasma Lactic Acid Yg 2.5 H* Calcium Magnesium Total Protein Albumin Albumin/Globulin Ratio Cortisol Ur Random Sodium Stool Lactoferrin 08/29/24 08/29/24 08/29/24 13:05 13:08 14:05 WBC RBC Hgb Hct RDW MPV Immature Gran # Neutrophils # Lymphocytes # Eosinophils # Metamyelocytes # (Man) Myelocytes # (Manual) PT 12.6 H INR 1.2 H ABG pH ABG pO2 ABG Total CO2 Sodium Potassium Chloride Carbon Dioxide Anion Gap BUN Creatinine BUN/Creatinine Ratio Glucose POC Glucose (mg/dL) 135 H Osmolality 270 L Plasma Lactic Acid Yg Calcium Magnesium Total Protein Albumin Albumin/Globulin Ratio Cortisol Ur Random Sodium Stool Lactoferrin 08/29/24 08/30/24 08/30/24 18:08 07:35 07:35 WBC RBC 3.94 L Hgb 11.3 L Hct 33.6 L RDW 15.4 H MPV 8.6 L Immature Gran # 0.20 H Neutrophils # 8.33 H Lymphocytes # 0.46 L Eosinophils # 0.02 L Metamyelocytes # (Man) Myelocytes # (Manual) PT INR ABG pH ABG pO2 ABG Total CO2 Sodium 117 L* Potassium 3.2 L Chloride 93 L Carbon Dioxide 15 L Anion Gap BUN Creatinine BUN/Creatinine Ratio Glucose 101 H POC Glucose (mg/dL) Osmolality Plasma Lactic Acid Yg Calcium 8.1 L Magnesium Total Protein Albumin Albumin/Globulin Ratio Cortisol Ur Random Sodium <20 L Stool Lactoferrin 08/30/24 08/30/24 08/31/24 14:52 20:44 05:47 WBC RBC 3.98 L Hgb 11.4 L Hct 33.5 L RDW 15.8 H MPV 9.0 L Immature Gran # Neutrophils # Lymphocytes # Eosinophils # Metamyelocytes # (Man) Myelocytes # (Manual) PT INR ABG pH ABG pO2 ABG Total CO2 Sodium 120 L Potassium Chloride Carbon Dioxide Anion Gap BUN Creatinine BUN/Creatinine Ratio Glucose POC Glucose (mg/dL) Osmolality Plasma Lactic Acid Yg Calcium Magnesium Total Protein Albumin Albumin/Globulin Ratio Cortisol Ur Random Sodium Stool Lactoferrin Positive A 08/31/24 08/31/24 09/01/24 05:47 10:41 06:54 WBC RBC 3.89 L Hgb 11.2 L Hct 32.5 L RDW 15.8 H MPV 9.0 L Immature Gran # Neutrophils # Lymphocytes # Eosinophils # Metamyelocytes # (Man) Myelocytes # (Manual) PT INR ABG pH ABG pO2 ABG Total CO2 Sodium 122 L 119 L* Potassium Chloride 92 L Carbon Dioxide 21.0 L Anion Gap BUN 7.2 L Creatinine BUN/Creatinine Ratio 8.00 L Glucose POC Glucose (mg/dL) Osmolality Plasma Lactic Acid Yg Calcium 8.4 L Magnesium Total Protein 5.2 L Albumin 2.7 L Albumin/Globulin Ratio 1.08 L Cortisol Ur Random Sodium Stool Lactoferrin 09/01/24 09/01/24 09/01/24 06:54 08:05 14:20 WBC RBC Hgb Hct RDW MPV Immature Gran # Neutrophils # Lymphocytes # Eosinophils # Metamyelocytes # (Man) Myelocytes # (Manual) PT INR ABG pH ABG pO2 ABG Total CO2 Sodium 121 L 119 L* 120 L Potassium Chloride 90 L Carbon Dioxide Anion Gap BUN Creatinine BUN/Creatinine Ratio 35.14 H Glucose POC Glucose (mg/dL) Osmolality Plasma Lactic Acid Yg Calcium Magnesium Total Protein 5.1 L Albumin 2.5 L Albumin/Globulin Ratio 0.96 L Cortisol Ur Random Sodium Stool Lactoferrin 09/01/24 09/02/24 09/02/24 20:45 06:35 06:35 WBC 10.29 H RBC Hgb 11.7 L Hct 34.7 L RDW 15.9 H MPV 9.0 L Immature Gran # Neutrophils # Lymphocytes # Eosinophils # Metamyelocytes # (Man) Myelocytes # (Manual) PT INR ABG pH ABG pO2 ABG Total CO2 Sodium 121 L 125 L Potassium Chloride 91 L Carbon Dioxide 21.3 L Anion Gap 12.70 H BUN 37.7 H Creatinine BUN/Creatinine Ratio 37.70 H Glucose 112 H POC Glucose (mg/dL) Osmolality Plasma Lactic Acid Yg Calcium Magnesium Total Protein 5.6 L Albumin 2.7 L Albumin/Globulin Ratio 0.93 L Cortisol Ur Random Sodium Stool Lactoferrin 09/02/24 09/03/24 09/03/24 10:43 04:23 09:50 WBC RBC Hgb Hct RDW MPV Immature Gran # Neutrophils # Lymphocytes # Eosinophils # Metamyelocytes # (Man) Myelocytes # (Manual) PT INR ABG pH ABG pO2 ABG Total CO2 Sodium 124 L 136 L Potassium Chloride Carbon Dioxide Anion Gap BUN 48 H Creatinine BUN/Creatinine Ratio Glucose 121 H POC Glucose (mg/dL) Osmolality Plasma Lactic Acid Yg Calcium 10.6 H Magnesium Total Protein Albumin Albumin/Globulin Ratio Cortisol 55.5 H Ur Random Sodium Stool Lactoferrin 09/03/24 09/04/24 09/04/24 20:12 09:26 12:37 WBC RBC Hgb Hct RDW MPV Immature Gran # Neutrophils # Lymphocytes # Eosinophils # Metamyelocytes # (Man) Myelocytes # (Manual) PT INR ABG pH ABG pO2 ABG Total CO2 Sodium 149 H 152 H Potassium Chloride 112 H 114 H Carbon Dioxide Anion Gap BUN 60 H 60 H Creatinine BUN/Creatinine Ratio Glucose 110 H 107 H POC Glucose (mg/dL) 124 H Osmolality Plasma Lactic Acid Yg Calcium 10.8 H 10.7 H Magnesium 2.6 H Total Protein 5.8 L Albumin 2.6 L Albumin/Globulin Ratio Cortisol Ur Random Sodium Stool Lactoferrin 09/04/24 09/04/24 09/04/24 13:54 13:56 15:35 WBC RBC Hgb Hct RDW MPV Immature Gran # Neutrophils # Lymphocytes # Eosinophils # Metamyelocytes # (Man) Myelocytes # (Manual) PT INR ABG pH 7.46 H ABG pO2 81 L ABG Total CO2 26 H Sodium Potassium Chloride Carbon Dioxide Anion Gap BUN Creatinine BUN/Creatinine Ratio Glucose POC Glucose (mg/dL) 168 H 213 H Osmolality Plasma Lactic Acid Yg Calcium Magnesium Total Protein Albumin Albumin/Globulin Ratio Cortisol Ur Random Sodium Stool Lactoferrin 09/04/24 16:38 WBC RBC Hgb Hct RDW MPV Immature Gran # Neutrophils # Lymphocytes # Eosinophils # Metamyelocytes # (Man) Myelocytes # (Manual) PT INR ABG pH ABG pO2 ABG Total CO2 Sodium 146 H Potassium Chloride Carbon Dioxide Anion Gap BUN Creatinine BUN/Creatinine Ratio Glucose POC Glucose (mg/dL) Osmolality Plasma Lactic Acid Yg Calcium Magnesium Total Protein Albumin Albumin/Globulin Ratio Cortisol Ur Random Sodium Stool Lactoferrin - Diagnostic Findings Chest x-ray: image reviewed (As noted in HPI) Additional studies: CT of abdomen and pelvis as noted in HPI Assessment and Plan Assessment: Impression: Acute respiratory failure with frequent episodes of apnea felt to be related to her altered mental status, and hypernatremia as well as hypercalcemia. BRIM STIFFENER metastasis has been practically ruled out. Acute metabolic encephalopathy Possible new onset seizure Benign essential hypertension Hypotension secondary to hypovolemia, strongly doubt sepsis. However considering her abdominal findings we will be concerned about the possibility of colitis Hyperlipidemia Coronary artery disease History of obstructive sleep apnea syndrome Hypernatremia with mental status change Acute abdominal distention/possible [place] syndrome. 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 Recommendation: Continue ventilatory support Continue IV fluid and fluid boluses for hypotension Consider starting pressors if patient does not improve with fluid boluses Adjust ventilator settings based on the next ABG which is pending Surgical consultation for her abdominal distention was initiated with Dr. Espinoza Start patient on Zosyn empirically Patient received Aredia already ordered by oncology Continue seizure meds Continue close observation in the ICU Patient is critically ill Critical care time is over 55 minutes Discussed condition with surgery and acute Time with Patient: Greater than 30
[2024-09-04 17:34] LABS: Allen Test Performed? no
--- NOTE | 2024-09-04 17:47 | P.GSCN ---
History of Present Illness Consult date: 09/04/24 Reason for Consult: Abdominal distention History of present illness: 69-year-old female with metastatic renal cell carcinoma. Patient was being treated with palliative chemotherapy. Came to the hospital with weakness and diarrhea. Today the patient was found unresponsive. She was placed on the ventilator by pulmonary. Blood pressure is low. Family states she is much more distended today than she had been previously. CAT scan of the and pelvis was performed showing diffuse colonic distention without definitive evidence of perforation or pneumatosis. Dilated colon extends down to the rectum and anus. Greatest dimension of colon approximately 8 to 9 cm. C. difficile was negative prior during admission. White blood cell count normal. Patient is afebrile. Patient with electrolyte imbalances including hyponatremia and hypercalcemia. Intracranial evaluation negative for metastatic disease. Review of Systems ROS unobtainable: due to endotracheal tube Past Medical History Past Medical History: Cancer, Chest Pain / Angina, Heart Failure, GERD/Reflux, Hyperlipidemia, Hypertension, Myocardial Infarction (OR), Pneumonia, Sleep Apnea/CPAP/BIPAP, Thyroid Disorder Additional Past Medical History / Comment(s): "electrical heart attack", PUD, hypothyroid, low back pain, rib fx, diverticulosis dx/benign polyp, Renal/Bone Ca Last Myocardial Infarction Date:: 2012 History of Any Multi-Drug Resistant Organisms: None Reported Past Surgical History: Back Surgery, Heart Catheterization, Orthopedic Surgery, Tonsillectomy, Tubal Ligation Additional Past Surgical History / Comment(s): 2012 cardiac cath-normal x2, 01/11/17 colonoscopy/benign polypectomy, ORIF LT FT, back x2, "lt NEPHRECTOMY d/t cancer". 09/30-heart cath-clear. dehiscence of incision with kidney surgery trigger finger repair rt hand Past Anesthesia/Blood Transfusion Reactions: Postoperative Nausea & Vomiting (PONV) Additional Past Anesthesia/Blood Transfusion Reaction / Comm: no hx blood transfusion. Anesthesia: elevation in blood pressure, aspirated after a surgery at [facility]; Pt does not want propofol Past Psychological History: Anxiety, Depression Additional Psychological History / Comment(s): and lives with the . Does not work outside of the home. Has pet dogs at home Smoking Status: Former smoker Past Alcohol Use History: None Reported Additional Past Alcohol Use History / Comment(s): Pt started smoking in 1971 smoked <1 ppd and quit may 2017 - Past Family History Mother Family Medical History: Hyperlipidemia Additional Family Medical History / Comment(s): Mother was healthy and lived to be 92 yrs. old. alcohol abuse Father History Unknown: Yes Family Medical History: Chest Pain / Angina Medications and Allergies Home Medications Medication Instructions Recorded Confirmed Type ALPRAZolam [Xanax] 0.5 mg PO TID 07/08/17 08/29/24 History Atorvastatin [Lipitor] 40 mg PO DAILY 09/23/20 08/29/24 History Levothyroxine Sodium 137 mcg PO [id number] 09/23/20 08/29/24 History Apixaban [Eliquis] 5 mg PO BID 09/01/22 08/29/24 History Fesoterodine Fumarate 8 mg PO DAILY 09/28/23 08/29/24 History [Fesoterodine Fumarate ER] Isosorbide Mononitrate ER [Imdur] 30 mg PO DAILY 09/28/23 08/29/24 History Metoprolol Succinate (ER) [Toprol 25 mg PO DAILY 09/28/23 08/29/24 History XL] Ergocalciferol [Vitamin D2 (1250 1,250 mcg PO INGRAM 04/10/24 08/29/24 History Mcg = 70640 Iu)] Escitalopram [Lexapro] 10 mg PO DAILY 08/08/24 08/29/24 History Ipilimumab [Yervoy] 1 dose IV Q21D 08/08/24 08/29/24 History Nivolumab [Opdivo] 1 dose IV Q21D 08/08/24 08/29/24 History Omeprazole [PriLOSEC] 20 mg PO DAILY 08/08/24 08/29/24 History Ondansetron Odt [Zofran ODT] 8 mg PO Q8HR PRN 08/08/24 08/29/24 History Amiodarone [Cordarone] 200 mg PO BID #60 tab 08/14/24 08/29/24 Rx Losartan [Cozaar] 50 mg PO BID #60 tab 08/14/24 08/29/24 Rx Potassium Chloride ER [K-Dur 20] 20 meq PO DAILY 30 Days #30 tab 08/14/24 08/29/24 Rx amLODIPine [Norvasc] 10 mg PO DAILY #30 tab 08/14/24 08/29/24 Rx levETIRAcetam [Keppra] 500 mg PO Q12HR #60 tab 08/14/24 08/29/24 Rx Aspirin EC [Ecotrin Low Dose] 81 mg PO DAILY 08/29/24 08/29/24 History Lactulose 10 gm PO BID PRN 08/29/24 08/29/24 History Morphine Sulfate Ir [MSIR] 15 mg PO Q6H 08/29/24 08/29/24 History calcitrioL [Rocaltrol] 0.25 mcg PO DAILY 08/29/24 08/29/24 History Allergies Allergy/AdvReac Type Severity Reaction Status Date / Time fentanyl Allergy Unknown Verified 08/29/24 15:57 Sulfa (Sulfonamide Allergy Rash/Hives Verified 08/29/24 15:57 Antibiotics) NSAIDS (Non-Steroidal AdvReac NO NSAIDS Verified 08/29/24 15:57 Anti-Inflamma DUE TO ONLY 1 KIDNEY Surgical - Exam Vital Signs Temp Pulse Resp BP Pulse Ox 97.2 F L 88 22 61/40 99 08/29/24 12:41 08/29/24 12:41 08/29/24 12:41 08/29/24 12:41 08/29/24 12:41 Physical exam: General: Well-developed, well-nourished HEENT: Normocephalic, sclerae nonicteric Abdomen: Soft, distended, no appreciable tenderness at this time Extremities: No edema Neuro: On ventilator Results - Labs 09/02/24 06:35 09/04/24 16:38 Abnormal Lab Results - Last 24 Hours (Table) 09/03/24 09/04/24 09/04/24 Range/Units 20:12 09:26 12:37 ABG pH (7.35-7.45) ABG pCO2 (35-45) mmHg ABG pO2 (83-108) mmHg ABG HCO3 (21-25) mmol/L ABG Total CO2 (19-24) mmol/L ABG O2 Saturation (94-97) % Hemoglobin (11.4-16.0) gm/dL Sodium 149 H 152 H (137-145) mmol/L Chloride 112 H 114 H (98-107) mmol/L BUN 60 H 60 H (7-17) mg/dL Glucose 110 H 107 H (74-99) mg/dL POC Glucose (mg/dL) 124 H (70-110) mg/dL Calcium 10.8 H 10.7 H (8.4-10.2) mg/dL Magnesium 2.6 H (1.6-2.3) mg/dL Total Protein 5.8 L (6.3-8.2) g/dL Albumin 2.6 L (3.5-5.0) g/dL 09/04/24 09/04/24 09/04/24 Range/Units 13:54 13:56 15:35 ABG pH 7.46 H (7.35-7.45) ABG pCO2 (35-45) mmHg ABG pO2 81 L (83-108) mmHg ABG HCO3 (21-25) mmol/L ABG Total CO2 26 H (19-24) mmol/L ABG O2 Saturation (94-97) % Hemoglobin (11.4-16.0) gm/dL Sodium (137-145) mmol/L Chloride (98-107) mmol/L BUN (7-17) mg/dL Glucose (74-99) mg/dL POC Glucose (mg/dL) 168 H 213 H (70-110) mg/dL Calcium (8.4-10.2) mg/dL Magnesium (1.6-2.3) mg/dL Total Protein (6.3-8.2) g/dL Albumin (3.5-5.0) g/dL 09/04/24 09/04/24 Range/Units 16:38 16:52 ABG pH 7.48 H (7.35-7.45) ABG pCO2 34 L (35-45) mmHg ABG pO2 358 H (83-108) mmHg ABG HCO3 26 H (21-25) mmol/L ABG Total CO2 27 H (19-24) mmol/L ABG O2 Saturation 99.7 H (94-97) % Hemoglobin 10.4 L (11.4-16.0) gm/dL Sodium 146 H (137-145) mmol/L Chloride (98-107) mmol/L BUN (7-17) mg/dL Glucose (74-99) mg/dL POC Glucose (mg/dL) (70-110) mg/dL Calcium (8.4-10.2) mg/dL Magnesium (1.6-2.3) mg/dL Total Protein (6.3-8.2) g/dL Albumin (3.5-5.0) g/dL Diabetes panel 09/04/24 09/04/24 09/04/24 Range/Units 09:26 12:37 16:38 Sodium 149 H 152 H 146 H (137-145) mmol/L Potassium 4.4 4.7 (3.5-5.1) mmol/L Chloride 112 H 114 H (98-107) mmol/L Carbon Dioxide 25 25 (22-30) mmol/L BUN 60 H 60 H (7-17) mg/dL Creatinine 1.00 0.88 (0.52-1.04) mg/dL Glucose 110 H 107 H (74-99) mg/dL Calcium 10.8 H 10.7 H (8.4-10.2) mg/dL AST 25 (14-36) U/L ALT 23 (4-34) U/L Alkaline Phosphatase 106 (38-126) U/L Total Protein 5.8 L (6.3-8.2) g/dL Albumin 2.6 L (3.5-5.0) g/dL Calcium panel 09/04/24 09/04/24 Range/Units 09:26 12:37 Calcium 10.8 H 10.7 H (8.4-10.2) mg/dL Albumin 2.6 L (3.5-5.0) g/dL Pituitary panel 09/04/24 09/04/24 09/04/24 Range/Units 09:26 12:37 16:38 Sodium 149 H 152 H 146 H (137-145) mmol/L Potassium 4.4 4.7 (3.5-5.1) mmol/L Chloride 112 H 114 H (98-107) mmol/L Carbon Dioxide 25 25 (22-30) mmol/L BUN 60 H 60 H (7-17) mg/dL Creatinine 1.00 0.88 (0.52-1.04) mg/dL Glucose 110 H 107 H (74-99) mg/dL Calcium 10.8 H 10.7 H (8.4-10.2) mg/dL Adrenal panel 09/04/24 09/04/24 09/04/24 Range/Units 09:26 12:37 16:38 Sodium 149 H 152 H 146 H (137-145) mmol/L Potassium 4.4 4.7 (3.5-5.1) mmol/L Chloride 112 H 114 H (98-107) mmol/L Carbon Dioxide 25 25 (22-30) mmol/L BUN 60 H 60 H (7-17) mg/dL Creatinine 1.00 0.88 (0.52-1.04) mg/dL Glucose 110 H 107 H (74-99) mg/dL Calcium 10.8 H 10.7 H (8.4-10.2) mg/dL Total Bilirubin 0.6 (0.2-1.3) mg/dL AST 25 (14-36) U/L ALT 23 (4-34) U/L Alkaline Phosphatase 106 (38-126) U/L Total Protein 5.8 L (6.3-8.2) g/dL Albumin 2.6 L (3.5-5.0) g/dL Assessment and Plan (1) Abdominal distention Narrative/Plan: 69-year-old female with abdominal distention and diarrhea. Recheck stool studies. CAT scan findings reveal dilated bowel all the way down to the anus. Patient should have fairly decent evacuation with fecal management system placement. Repeat abdominal x-rays tomorrow. Hold any tube feeds for now. Family discussing extent of care desire amongst themselves. Prognosis unfortunately is poor given the patient's metastatic disease picture. Will follow. Current Visit: Yes Status: Acute Code(s): R14.0 - ABDOMINAL DISTENSION (GASEOUS) SNOMED Code(s): 53264601
[2024-09-04] MEDS: SODIUM CHLORIDE 0.45% 1,000 ML IV SCH (21:03)
[2024-09-04] MEDS: CHLORHEXIDINE GLUCONATE 15 ML CUP MUCOUS MEM SCH (21:03)
[2024-09-05 00:04] LABS: Glucose,Whole Blood 99 mg/dL (70-110)
--- NOTE | 2024-09-05 00:05 | OP ---
OPERATIVE REPORT DATE OF SERVICE : PROCEDURE PERFORMED: Placement of a left radial arterial line. PREOPERATIVE DIAGNOSIS: Profound hypotension. POSTOPERATIVE DIAGNOSIS: Profound hypotension. ANESTHESIA USED: None deployed. PROCEDURE IN DETAIL: The left wrist was prepared in a sterile fashion. Drapes were applied. The left radial artery was palpated, cannulated easily. A guidewire was placed. A Cook's catheter placed over the guidewire, and the guidewire was removed. Good blood flow, good waveform. No complication. Procedure was well tolerated. MMODL / IJN: [id number] /
[2024-09-05] MEDS: DEXTROSE 5% IN WATER 1,000 ML IV ONE (00:15)
--- NOTE | 2024-09-05 02:38 | EEG ---
ELECTROENCEPHALOGRAM REPORT CLINICAL HISTORY: This is a 69-year-old woman with altered mental status. The video EEG is obtained to evaluate for seizure epileptiform activity. RELEVANT MEDICATION: Keppra. EEG TYPE: This is a routine 21-channel EEG with video using the 10/20 electrode system. DESCRIPTION: Wakefulness is obtained. Background was somewhat hard to assess because of motion artifact in which the patient was having head movement and there is touching of the wires. There seems the background consists of 3-4 hertz intermixed with theta activity. While the frontal leads, there is a lot of motion artifact again because of the touching of the leads and head turning/movement, but appears sharply contoured activity that is a 15 to 16 hertz and there is no rhythmicity or evolution over bilateral frontal region. There is no focal slowing. Interictal and ictal is none. ACTIVATION PROCEDURE: Photic stimulation. Hyperventilation is not performed. CLINICAL INTERPRETATION: This is an abnormal routine EEG. The background slowing is suggestive of moderate-to- severe encephalopathy. There is motion artifact over the bilateral frontal region. Otherwise, there is no focal slowing, epileptiform discharge, or seizure on the EEG. A lack of epileptiform discharges does not rule out underlying epilepsy. Clinical correlation is recommended. MMODL / IJN: [id number] / [facility]
[2024-09-05 04:35] LABS: ABG HCO3 26 mmol/L (21-25); ABG PCO2 34 mmHg (35-45); ABG PH 7.49 (7.35-7.45); ABG PO2 109 mmHg (83-108); ABG TCO2 27 mmol/L (19-24); Allen Test Performed? Yes
[2024-09-05 05:18] LABS: HCT 35.6 % (37.2-46.3); HGB 11.8 g/dL (12.0-15.0); MCH 28.8 pg (27.0-32.0); MCHC 33.1 g/dL (32.0-37.0); MCV 86.8 fL (80.0-97.0); Platelet Count 221 10*3/uL (140-440); RBC 4.10 10*6/uL (4.10-5.20); RDW 17.1 % (11.5-14.5); WBC 15.35 10*3/uL (4.50-10.00)
[2024-09-05 05:34] LABS: ALT 20 U/L (4-34); AST 24 U/L (14-36); African American GFR (CKD) 77 (>60 ml/min/1.73 sqM); Albumin 2.2 g/dL (3.5-5.0); Alkaline Phosphatase 118 U/L (38-126); Anion Gap 11 mmol/L; Blood Urea Nitrogen 43 mg/dL (7-17); Calcium 9.4 mg/dL (8.4-10.2); Carbon Dioxide 23 mmol/L (22-30); Chloride 106 mmol/L (98-107); Glucose 116 mg/dL (74-99); Non-African American GFR(CKD) 67 (>60 ml/min/1.73 sqM); Potassium 3.8 mmol/L (3.5-5.1); Sodium 140 mmol/L (137-145); Total Protein 5.0 g/dL (6.3-8.2)
[2024-09-05] MEDS: levETIRAcetam IV 500 MG/5 ML VIAL IVP SCH (06:10)
[2024-09-05] MEDS: POTASSIUM CHLORIDE 10 MEQ in WATER FOR INJECTION 1 100ML.BAG IVPB SCH (06:34)
--- NOTE | 2024-09-05 06:49 | XR ---
EXAMINATION TYPE: XR chest 1V portable DATE OF EXAM: 09/05/2024 5:29 AM COMPARISON: 08/29/2024 CLINICAL INDICATION: Female, 69 years old with history of Tube placement, TECHNIQUE: XR chest 1V portable views of the chest are obtained. FINDINGS: Endotracheal tube is well-positioned 6.2 cm above the ronaldo. An NG tube is seen coursing into the st omach. Lung volumes are slightly diminished. No evidence for pneumothorax. There is no evidence for focal infiltrate. The heart is stable. Hilar and mediastinal structures are within normal limits. Degenerative changes are seen of the dorsal spine. IMPRESSION: 1. Endotracheal tube is well-positioned. 2. An NG tube is seen coursing into the stomach. 3. Lung volumes are slightly diminished. [facility], , 09/05/2024 6:47 AM
[2024-09-05 06:50] LABS: Glucose,Whole Blood 109 mg/dL (70-110)
--- NOTE | 2024-09-05 06:50 | XR ---
EXAMINATION TYPE: XR abdomen 2V DATE OF EXAM: 09/05/2024 5:29 AM COMPARISON: Plain film CLINICAL INDICATION: Female, 69 years old with history of Colonic ileus; [facility] TECHNIQUE: Two views of the abdomen were obtained. FINDINGS: Moderate amount stool throughout the colon. The bowel gas pattern is nonspecific without d ilated loops of small or large bowel. . Fecal material and gas are demonstrated throughout the colon and rectum. There is no evidence for organomegaly or pneumoperitoneum. No acute osseous process. No abnormal calcifications are present. Post surgical changes to the spine. L5-S1. Nasogastric tube in satisfactory position. Scoliosis farley es of the spine. Right hip fixation hardware appears intact. IMPRESSION: Gaseous distention of bowel which could be compatible with ileus. [facility], , 09/05/2024 6:48 AM
[2024-09-05] MEDS: DEXTROSE 5% IN WATER 1,000 ML IV SCH (07:01)
--- NOTE | 2024-09-05 09:11 | P.PN ---
Subjective Progress Note Date: 09/05/24 This is a 69-year-old female with a known history of metastatic renal cell carcinoma who presented to the emergency department with hyponatremia. Sodium is slowly improving. Patient reports she is still feeling fatigued today. Nephrology and oncology are on consult. 09/04/2024 Patient seen this morning laying in bed, drowsy. Patient's confusion worsened over the weekend. EEG and MRI have been ordered. present at bedside. Her sodium has stabilized. 09/05/2024 Patient declined yesterday and was transferred to the ICU. She is now on mechanical ventilation. Abdominal XR showing an ileus. Objective - Vital Signs Vital signs: Vital Signs Temp 98.8 F 09/05/24 08:00 Pulse 94 09/05/24 08:00 Resp 20 09/05/24 08:00 BP 105/73 09/05/24 08:00 Pulse Ox 97 09/05/24 08:00 FiO2 50 09/05/24 08:00 Intake & Output 09/04/24 09/05/24 09/05/24 18:59 06:59 18:59 Intake Total 2945.392 1535.241 0 Output Total 1400 2380 100 Balance 1545.392 -844.759 -100 Weight 76.5 kg Intake: IV 1049 1316 0 Dextrose 5% in Water 1, 800 600 000 ml @ 300 mls/hr IV . Q3H20M ZAC Rx#:[id number] Sodium Chloride 0.45% 1, 550 0 000 ml @ 50 mls/hr IV . Q20H ZAC Rx#:[id number] Sodium Chloride 0.9% 250 249 166 ml @ 83 mls/hr IV .Q3H1M ONE with Pamidronate 30 mg Rx#:[id number] Intake, IV Titration 16.392 219.241 Amount Norepinephrine 8 mg In 10.146 65.405 Sodium Chloride 0.9% 250 ml @ 0.03 MCG/KG/MIN 4. 476 mls/hr IV .Q24H ZAC Rx#:[id number] propofoL 1,000 mg In 6.246 153.836 Empty Bag 1 bag @ 15 MCG/ KG/MIN 6.94 mls/hr IV . [id number] ZAC Rx#:[id number] Oral 1880 Output: Gastric Drainage 200 Urine 1400 1680 100 Uretheral (Velasquez) 1250 Stool 500 Other: Voiding Method Indwelling Catheter Indwelling Catheter # Bowel Movements 2 ABP, PAP, CO, CI - Last Documented Arterial Blood Pressure 102/53 - Constitutional General appearance: Present: no acute distress - EENT Eyes: Present: PERRLA - Neck Neck: Absent: lymphadenopathy, rigidity - Respiratory Respiratory: bilateral: CTA - Cardiovascular Heart sounds: normal: S1, S2 - Gastrointestinal General gastrointestinal: Present: soft - Integumentary Integumentary: Present: normal, normal turgor - Musculoskeletal Musculoskeletal: Present: generalized weakness - Labs CBC & Chem 7: 09/05/24 04:30 09/05/24 06:23 Labs: Abnormal Lab Results - Last 24 Hours (Table) 09/04/24 09/04/24 09/04/24 Range/Units 09:26 12:37 13:54 WBC (4.50-10.00) 10*3/uL Hgb (12.0-15.0) g/dL Hct (37.2-46.3) % MPV (9.5-12.2) fL ABG pH (7.35-7.45) ABG pCO2 (35-45) mmHg ABG pO2 (83-108) mmHg ABG HCO3 (21-25) mmol/L ABG Total CO2 (19-24) mmol/L ABG O2 Saturation (94-97) % Hemoglobin (11.4-16.0) gm/dL Sodium 149 H 152 H (137-145) mmol/L Chloride 112 H 114 H (98-107) mmol/L BUN 60 H 60 H (7-17) mg/dL Glucose 110 H 107 H (74-99) mg/dL POC Glucose (mg/dL) 168 H (70-110) mg/dL Calcium 10.8 H 10.7 H (8.4-10.2) mg/dL Magnesium 2.6 H (1.6-2.3) mg/dL Total Protein 5.8 L (6.3-8.2) g/dL Albumin 2.6 L (3.5-5.0) g/dL 09/04/24 09/04/24 09/04/24 Range/Units 13:56 15:35 16:38 WBC (4.50-10.00) 10*3/uL Hgb (12.0-15.0) g/dL Hct (37.2-46.3) % MPV (9.5-12.2) fL ABG pH 7.46 H (7.35-7.45) ABG pCO2 (35-45) mmHg ABG pO2 81 L (83-108) mmHg ABG HCO3 (21-25) mmol/L ABG Total CO2 26 H (19-24) mmol/L ABG O2 Saturation (94-97) % Hemoglobin (11.4-16.0) gm/dL Sodium 146 H (137-145) mmol/L Chloride (98-107) mmol/L BUN (7-17) mg/dL Glucose (74-99) mg/dL POC Glucose (mg/dL) 213 H (70-110) mg/dL Calcium (8.4-10.2) mg/dL Magnesium (1.6-2.3) mg/dL Total Protein (6.3-8.2) g/dL Albumin (3.5-5.0) g/dL 09/04/24 09/04/24 09/05/24 Range/Units 16:52 20:00 04:30 WBC 15.35 H (4.50-10.00) 10*3/uL Hgb 11.8 L (12.0-15.0) g/dL Hct 35.6 L (37.2-46.3) % MPV 8.6 L (9.5-12.2) fL ABG pH 7.48 H (7.35-7.45) ABG pCO2 34 L (35-45) mmHg ABG pO2 358 H (83-108) mmHg ABG HCO3 26 H (21-25) mmol/L ABG Total CO2 27 H (19-24) mmol/L ABG O2 Saturation 99.7 H (94-97) % Hemoglobin 10.4 L (11.4-16.0) gm/dL Sodium 136 L (137-145) mmol/L Chloride (98-107) mmol/L BUN (7-17) mg/dL Glucose (74-99) mg/dL POC Glucose (mg/dL) (70-110) mg/dL Calcium (8.4-10.2) mg/dL Magnesium (1.6-2.3) mg/dL Total Protein (6.3-8.2) g/dL Albumin (3.5-5.0) g/dL 09/05/24 09/05/24 Range/Units 04:30 04:31 WBC (4.50-10.00) 10*3/uL Hgb (12.0-15.0) g/dL Hct (37.2-46.3) % MPV (9.5-12.2) fL ABG pH 7.49 H (7.35-7.45) ABG pCO2 34 L (35-45) mmHg ABG pO2 109 H (83-108) mmHg ABG HCO3 26 H (21-25) mmol/L ABG Total CO2 27 H (19-24) mmol/L ABG O2 Saturation 98.0 H (94-97) % Hemoglobin (11.4-16.0) gm/dL Sodium (137-145) mmol/L Chloride (98-107) mmol/L BUN 43 H (7-17) mg/dL Glucose 116 H (74-99) mg/dL POC Glucose (mg/dL) (70-110) mg/dL Calcium (8.4-10.2) mg/dL Magnesium (1.6-2.3) mg/dL Total Protein 5.0 L (6.3-8.2) g/dL Albumin 2.2 L (3.5-5.0) g/dL Assessment and Plan (1) Hyponatremia Current Visit: Yes Status: Acute Priority: High Code(s): E87.1 - HYPO-O SMOLALITY AND HYPONATREMIA SNOMED Code(s): 72328602 (2) Renal cell carcinoma Current Visit: Yes Status: Acute Priority: High Code(s): C64.9 - MALIGNANT NEOPLASM OF UNSP KIDNEY, EXCEPT RENAL PELVIS SNOMED Code(s): 052668241 (3) History of anxiety Current Visit: No Status: Acute Code(s): Z86.59 - PERSONAL HISTORY OF OTHER MENTAL AND BEHAVIORAL DISORDERS SNOMED Code(s): 833473346 (4) Hypertension Current Visit: No Status: Acute Code(s): I10 - ESSENTIAL (PRIMARY) HYPERTENSION SNOMED Code(s): 41600768 Plan: Check CBC and CMP in the morning. Appreciate multiple consultants. Patient seen and evaluated by nurse practitioner, physician in agreement with plan.
--- NOTE | 2024-09-05 09:56 | P.PN ---
Subjective Patient is seen in follow-up for hyponatremia. Sodium level was elevated at 149 and on repeat 152 yesterday. Patient received DDAVP as well as D5W to reverse the rapid correction. Sodium level now in the normal range. She is currently off IV fluids. Intubated. On Levophed. Vital signs are stable. On vasopressor support. General: Resting in bed. HEENT: Intubated. LUNGS: Scattered rhonchi. HEART: Rate and Rhythm are regular. ABDOMEN: No distention. EXTREMITITES: No edema. Objective - Vital Signs Vital signs: Vital Signs Temp 98.8 F 09/05/24 08:00 Pulse 98 09/05/24 09:30 Resp 20 09/05/24 09:30 BP 105/73 09/05/24 08:00 Pulse Ox 99 09/05/24 09:30 FiO2 50 09/05/24 09:28 Intake & Output 09/04/24 09/05/24 09/05/24 18:59 06:59 18:59 Intake Total 2945.392 1535.241 70.325 Output Total 1400 2380 135 Balance 1545.392 -844.759 -64.675 Weight 76.5 kg Intake: IV 1049 1316 0 Dextrose 5% in Water 1, 800 600 000 ml @ 300 mls/hr IV . Q3H20M ZAC Rx#:[id number] Sodium Chloride 0.45% 1, 550 0 000 ml @ 50 mls/hr IV . Q20H ZAC Rx#:[id number] Sodium Chloride 0.9% 250 249 166 ml @ 83 mls/hr IV .Q3H1M ONE with Pamidronate 30 mg Rx#:[id number] Intake, IV Titration 16.392 219.241 70.325 Amount Norepinephrine 8 mg In 10.146 65.405 Sodium Chloride 0.9% 250 ml @ 0.03 MCG/KG/MIN 4. 476 mls/hr IV .Q24H ZAC Rx#:[id number] propofoL 1,000 mg In 6.246 153.836 70.325 Empty Bag 1 bag @ 15 MCG/ KG/MIN 6.94 mls/hr IV . [id number] ZAC Rx#:[id number] Oral 1880 Output: Gastric Drainage 200 Urine 1400 1680 135 Uretheral (Velasquez) 1250 Stool 500 Other: Voiding Method Indwelling Catheter Indwelling Catheter Indwelling Catheter # Bowel Movements 2 ABP, PAP, CO, CI - Last Documented Arterial Blood Pressure 96/49 - Labs CBC & Chem 7: 09/05/24 04:30 09/05/24 06:23 Labs: Abnormal Lab Results - Last 24 Hours (Table) 09/04/24 09/04/24 09/04/24 Range/Units 09:26 12:37 13:54 WBC (4.50-10.00) 10*3/uL Hgb (12.0-15.0) g/dL Hct (37.2-46.3) % MPV (9.5-12.2) fL ABG pH (7.35-7.45) ABG pCO2 (35-45) mmHg ABG pO2 (83-108) mmHg ABG HCO3 (21-25) mmol/L ABG Total CO2 (19-24) mmol/L ABG O2 Saturation (94-97) % Hemoglobin (11.4-16.0) gm/dL Sodium 149 H 152 H (137-145) mmol/L Chloride 112 H 114 H (98-107) mmol/L BUN 60 H 60 H (7-17) mg/dL Glucose 110 H 107 H (74-99) mg/dL POC Glucose (mg/dL) 168 H (70-110) mg/dL Calcium 10.8 H 10.7 H (8.4-10.2) mg/dL Magnesium 2.6 H (1.6-2.3) mg/dL Total Protein 5.8 L (6.3-8.2) g/dL Albumin 2.6 L (3.5-5.0) g/dL 09/04/24 09/04/24 09/04/24 Range/Units 13:56 15:35 16:38 WBC (4.50-10.00) 10*3/uL Hgb (12.0-15.0) g/dL Hct (37.2-46.3) % MPV (9.5-12.2) fL ABG pH 7.46 H (7.35-7.45) ABG pCO2 (35-45) mmHg ABG pO2 81 L (83-108) mmHg ABG HCO3 (21-25) mmol/L ABG Total CO2 26 H (19-24) mmol/L ABG O2 Saturation (94-97) % Hemoglobin (11.4-16.0) gm/dL Sodium 146 H (137-145) mmol/L Chloride (98-107) mmol/L BUN (7-17) mg/dL Glucose (74-99) mg/dL POC Glucose (mg/dL) 213 H (70-110) mg/dL Calcium (8.4-10.2) mg/dL Magnesium (1.6-2.3) mg/dL Total Protein (6.3-8.2) g/dL Albumin (3.5-5.0) g/dL 09/04/24 09/04/24 09/05/24 Range/Units 16:52 20:00 04:30 WBC 15.35 H (4.50-10.00) 10*3/uL Hgb 11.8 L (12.0-15.0) g/dL Hct 35.6 L (37.2-46.3) % MPV 8.6 L (9.5-12.2) fL ABG pH 7.48 H (7.35-7.45) ABG pCO2 34 L (35-45) mmHg ABG pO2 358 H (83-108) mmHg ABG HCO3 26 H (21-25) mmol/L ABG Total CO2 27 H (19-24) mmol/L ABG O2 Saturation 99.7 H (94-97) % Hemoglobin 10.4 L (11.4-16.0) gm/dL Sodium 136 L (137-145) mmol/L Chloride (98-107) mmol/L BUN (7-17) mg/dL Glucose (74-99) mg/dL POC Glucose (mg/dL) (70-110) mg/dL Calcium (8.4-10.2) mg/dL Magnesium (1.6-2.3) mg/dL Total Protein (6.3-8.2) g/dL Albumin (3.5-5.0) g/dL 09/05/24 09/05/24 Range/Units 04:30 04:31 WBC (4.50-10.00) 10*3/uL Hgb (12.0-15.0) g/dL Hct (37.2-46.3) % MPV (9.5-12.2) fL ABG pH 7.49 H (7.35-7.45) ABG pCO2 34 L (35-45) mmHg ABG pO2 109 H (83-108) mmHg ABG HCO3 26 H (21-25) mmol/L ABG Total CO2 27 H (19-24) mmol/L ABG O2 Saturation 98.0 H (94-97) % Hemoglobin (11.4-16.0) gm/dL Sodium (137-145) mmol/L Chloride (98-107) mmol/L BUN 43 H (7-17) mg/dL Glucose 116 H (74-99) mg/dL POC Glucose (mg/dL) (70-110) mg/dL Calcium (8.4-10.2) mg/dL Magnesium (1.6-2.3) mg/dL Total Protein 5.0 L (6.3-8.2) g/dL Albumin 2.2 L (3.5-5.0) g/dL Assessment and Plan Plan: Assessment: 1. Hyponatremia, initially hypovolemic. Component of SIADH. Status post Samsca and salt tabs this admission. Sodium level corrected rapidly and was subsequently given DDAVP and D5W to reverse the rapid correction. Sodium level now normal. Urine sodium less than 20 and urine osmolality 322. TSH normal. Cortisol level not low. 2. 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 3. History of left nephrectomy secondary to malignancy. 4. Stage IV renal cancer with bone metastasis. 5. Hypercalcemia secondary to vitamin D and calcitriol. Underlying malignancy also contributing factor. Better. Status post pamidronate given September 04, 2024. Plan: Currently off IV fluids. Continue to monitor sodium levels. Wean FiO2 and vasopressors. Prognosis poor.
[2024-09-05] MEDS ORDERED: fentaNYL (PF). 1,000 MCG in SODIUM CHLORIDE 0.9% 80 ML IV SCH (11:00)
[2024-09-05] MEDS: MORPHINE SULFATE 4 MG/ML SYRINGE IV PRN (11:40)
[2024-09-05] MEDS: METOPROLOL TARTRATE 12.5 MG TAB PO SCH (11:40)
[2024-09-05 11:44] LABS: Glucose,Whole Blood 100 mg/dL (70-110)
[2024-09-05] MEDS: MORPHINE SULFATE IR 15 MG TABLET PO SCH (12:14)
--- NOTE | 2024-09-05 12:48 | P.PN ---
Subjective Progress Note Date: 09/05/24 Principal diagnosis: Patient seen and examined at bedside today.Patient was intubated yesterday afternoon. Her blood pressure is lower today. Her Sodium as improved to 141. WBC is elevated at 15.[address] head shows no acute intracranial process, nonspecific white matter changes likely secondary to chronic sinus or ischemic disease EEG shows background slowing suggestive of moderate to severe encephalopathy, abnormal routine EEG Objective - Vital Signs Vital signs: Vital Signs Temp 98.9 F 09/05/24 11:30 Pulse 156 H 09/05/24 12:10 Resp 24 09/05/24 12:10 BP 105/73 09/05/24 08:00 Pulse Ox 98 09/05/24 12:10 FiO2 50 09/05/24 12:00 Intake & Output 09/04/24 09/05/24 09/05/24 18:59 06:59 18:59 Intake Total 2945.392 1535.241 187.032 Output Total 1400 2380 235 Balance 1545.392 -844.759 -47.968 Weight 76.5 kg 76.5 kg Intake: IV 1049 1316 0 Dextrose 5% in Water 1, 800 600 000 ml @ 300 mls/hr IV . Q3H20M [facility] Rx#:[id number] Sodium Chloride 0.45% 1, 550 0 000 ml @ 50 mls/hr IV . Q20H [facility] Rx#:[id number] Sodium Chloride 0.9% 250 249 166 ml @ 83 mls/hr IV .Q3H1M ONE with Pamidronate 30 mg Rx#:[id number] Intake, IV Titration 16.392 219.241 187.032 Amount Norepinephrine 8 mg In 10.146 65.405 101.863 Sodium Chloride 0.9% 250 ml @ 0.03 MCG/KG/MIN 4. 476 mls/hr IV .Q24H [facility] Rx#:[id number] propofoL 1,000 mg In 6.246 153.836 85.169 Empty Bag 1 bag @ 15 MCG/ KG/MIN 6.94 mls/hr IV . [id number] [facility] Rx#:[id number] Oral 1880 Output: Gastric Drainage 200 Urine 1400 1680 235 Uretheral (Velasquez) 1250 Stool 500 Other: Voiding Method Indwelling Catheter Indwelling Catheter Indwelling Catheter # Bowel Movements 2 ABP, PAP, CO, CI - Last Documented Arterial Blood Pressure 109/61 - Exam General: Intubated and mechanically ventilated. Appears pale Neuro: unable to assess individual muscle strength - Labs CBC & Chem 7: 09/05/24 04:30 09/05/24 16:06 Labs: Abnormal Lab Results - Last 24 Hours (Table) 09/04/24 09/04/24 09/04/24 Range/Units 12:37 13:54 13:56 WBC (4.50-10.00) 10*3/uL Hgb (12.0-15.0) g/dL Hct (37.2-46.3) % MPV (9.5-12.2) fL ABG pH 7.46 H (7.35-7.45) ABG pCO2 (35-45) mmHg ABG pO2 81 L (83-108) mmHg ABG HCO3 (21-25) mmol/L ABG Total CO2 26 H (19-24) mmol/L ABG O2 Saturation (94-97) % Hemoglobin (11.4-16.0) gm/dL Sodium 152 H (137-145) mmol/L Chloride 114 H (98-107) mmol/L BUN 60 H (7-17) mg/dL Glucose 107 H (74-99) mg/dL POC Glucose (mg/dL) 168 H (70-110) mg/dL Calcium 10.7 H (8.4-10.2) mg/dL Total Protein 5.8 L (6.3-8.2) g/dL Albumin 2.6 L (3.5-5.0) g/dL 09/04/24 09/04/24 09/04/24 Range/Units 15:35 16:38 16:52 WBC (4.50-10.00) 10*3/uL Hgb (12.0-15.0) g/dL Hct (37.2-46.3) % MPV (9.5-12.2) fL ABG pH 7.48 H (7.35-7.45) ABG pCO2 34 L (35-45) mmHg ABG pO2 358 H (83-108) mmHg ABG HCO3 26 H (21-25) mmol/L ABG Total CO2 27 H (19-24) mmol/L ABG O2 Saturation 99.7 H (94-97) % Hemoglobin 10.4 L (11.4-16.0) gm/dL Sodium 146 H (137-145) mmol/L Chloride (98-107) mmol/L BUN (7-17) mg/dL Glucose (74-99) mg/dL POC Glucose (mg/dL) 213 H (70-110) mg/dL Calcium (8.4-10.2) mg/dL Total Protein (6.3-8.2) g/dL Albumin (3.5-5.0) g/dL 09/04/24 09/05/24 09/05/24 Range/Units 20:00 04:30 04:30 WBC 15.35 H (4.50-10.00) 10*3/uL Hgb 11.8 L (12.0-15.0) g/dL Hct 35.6 L (37.2-46.3) % MPV 8.6 L (9.5-12.2) fL ABG pH (7.35-7.45) ABG pCO2 (35-45) mmHg ABG pO2 (83-108) mmHg ABG HCO3 (21-25) mmol/L ABG Total CO2 (19-24) mmol/L ABG O2 Saturation (94-97) % Hemoglobin (11.4-16.0) gm/dL Sodium 136 L (137-145) mmol/L Chloride (98-107) mmol/L BUN 43 H (7-17) mg/dL Glucose 116 H (74-99) mg/dL POC Glucose (mg/dL) (70-110) mg/dL Calcium (8.4-10.2) mg/dL Total Protein 5.0 L (6.3-8.2) g/dL Albumin 2.2 L (3.5-5.0) g/dL 09/05/24 Range/Units 04:31 WBC (4.50-10.00) 10*3/uL Hgb (12.0-15.0) g/dL Hct (37.2-46.3) % MPV (9.5-12.2) fL ABG pH 7.49 H (7.35-7.45) ABG pCO2 34 L (35-45) mmHg ABG pO2 109 H (83-108) mmHg ABG HCO3 26 H (21-25) mmol/L ABG Total CO2 27 H (19-24) mmol/L ABG O2 Saturation 98.0 H (94-97) % Hemoglobin (11.4-16.0) gm/dL Sodium (137-145) mmol/L Chloride (98-107) mmol/L BUN (7-17) mg/dL Glucose (74-99) mg/dL POC Glucose (mg/dL) (70-110) mg/dL Calcium (8.4-10.2) mg/dL Total Protein (6.3-8.2) g/dL Albumin (3.5-5.0) g/dL Assessment and Plan Assessment: Altered mental status, likely due to toxic metabolic encephalopathy. Initially sodium is low and then Sodium was high, sodium better today, blood pressure is on low normal side and is intubated and mechanically ventilated). Also, poss ibly related to side effect of immunotherapy. So far patient had two CT head and no evidence of acute/subacute stroke, mass that is appreciable on CT or Posterior reversible encephalopathy syndrome (PRES) Leukocytosis, septic encephalopathy vs aspiration pneumonia Hyponatremia-->Hypernatremia--Resolved Metastatic renal cell carcinoma Possible new onset seizure 08/09/2024 Hypertension Hyperlipidemia Coronary artery disease Sleep apnea Plan: MRI brain with and without contrast evaluate for above possibilities. Unable to obtain because currently on a ventilator. Continue Keppra 500 mg twice a day. Oncology, nephrology following. Will defer the rest of medical management to primary team and other specialist. Personally examined the patient and discussed the plan with the patient's son. I agree with the residents assessment and plan as written. Time with Patient: Less than 30
--- NOTE | 2024-09-05 13:01 | P.CRDCN ---
History of Present Illness Consult date: 09/05/24 History of present illness: The patient is a 69-year-old female patient with extensive medical history consistent of metastatic renal cell carcinoma as well as history of CAD based on heart catheterization in 2019 showing intermediate disease involving the left circumflex documented to be nonflow-limiting at that point as well as history of hypertension and dyslipidemia and overweight and sleep apnea as well as electrolytes abnormalities. The patient was admitted to the hospital few days ago with progressive weakness and fatigue and she was found to have severe e lectrolyte abnormalities and also she was found to be dehydrated where she was experiencing diarrhea. CT scan was performed and showed no acute intra- abdominal process. During her hospital stay and within the last 24 hours she developed worsening change in mental status and subsequently the patient was intubated and placed on mechanical ventilation to protect her airways. We consulted to see the patient because of A-fib with RVR. There is a reported history of atrial fibrillation in the patient's medical records but she was not on any anticoagulation likely because of metastatic cancer and possible high risk of bleeding. Currently patient is intubated and she is sedated. The history was taken from the chart as well as from the nurse taking care of the patient. Hemodynamically she is unstable and requiring small dose of norepinephrine. The EKG showed atrial fibrillation with RVR with diffuse ST and T wave abnormalities noted as well. She is on beta-saida which I am going to stop and going to start the patient on amiodarone bolus and drip. I will hold on any oral anticoagulation or IV anticoagulation at this point given the possible risk of bleeding. The physical examination is remarkable for intubated patient on mechanical ventilation with irregular rhythm and systolic murmur at the right and left upper sternal border with diminished breathing sounds bilaterally and no edema was noted Assessment Change in mental status Acute hypoxic respiratory failure A-fib with RVR Metastatic renal cell carcinoma Electrolyte abnormalities Multiple comorbid conditions Plan DC AV agustin saida agents orally and start the patient on amiodarone IV Consider switching the patient to oral amiodarone Obtain an echocardiogram with Doppler Further recommendation to follow Assess the need for anticoagulation down the line Past Medical History Past Medical History: Cancer, Chest Pain / Angina, Heart Failure, GERD/Reflux, Hyperlipidemia, Hypertension, Myocardial Infarction (VT), Pneumonia, Sleep Apnea/CPAP/BIPAP, Thyroid Disorder Additional Past Medical History / Comment(s): "electrical heart attack", PUD, hypothyroid, low back pain, rib fx, diverticulosis dx/benign polyp, Renal/Bone Ca Last Myocardial Infarction Date:: 2012 History of Any Multi-Drug Resistant Organisms: None Reported Past Surgical History: Back Surgery, Heart Catheterization, Orthopedic Surgery, Tonsillectomy, Tubal Ligation Additional Past Surgical History / Comment(s): 2012 cardiac cath-normal x2, 01/11/17 colonoscopy/benign polypectomy, ORIF LT FT, back x2, "lt NEPHRECTOMY d/t cancer". 09/30-heart cath-clear. dehiscence of incision with kidney surgery trigger finger repair rt hand Past Anesthesia/Blood Transfusion Reactions: Postoperative Nausea & Vomiting (PONV) Additional Past Anesthesia/Blood Transfusion Reaction / Comment(s): no hx blood transfusion. Anesthesia: elevation in blood pressure, aspirated after a surgery at [facility]; Pt does not want propofol Past Psychological History: Anxiety, Depression Additional Psychological History / Comment(s): and lives with the . Does not work outside of the home. Has pet dogs at home Smoking Status: Former smoker Past Alcohol Use History: None Reported Additional Past Alcohol Use History / Comment(s): Pt started smoking in 1971 smoked <1 ppd and quit may 2017 - Past Family History Mother Family Medical History: Hyperlipidemia Additional Family Medical History / Comment(s): Mother was healthy and lived to be 92 yrs. old. alcohol abuse Father History Unknown: Yes Family Medical History: Chest Pain / Angina Medications and Allergies Home Medications Medication Instructions Recorded Confirmed Type ALPRAZolam [Xanax] 0.5 mg PO TID 07/08/17 08/29/24 History Atorvastatin [Lipitor] 40 mg PO DAILY 09/23/20 08/29/24 History Levothyroxine Sodium 137 mcg PO [id number] 09/23/20 08/29/24 History Apixaban [Eliquis] 5 mg PO BID 09/01/22 08/29/24 History Fesoterodine Fumarate 8 mg PO DAILY 09/28/23 08/29/24 History [Fesoterodine Fumarate ER] Isosorbide Mononitrate ER [Imdur] 30 mg PO DAILY 09/28/23 08/29/24 History Metoprolol Succinate (ER) [Toprol 25 mg PO DAILY 09/28/23 08/29/24 History XL] Ergocalciferol [Vitamin D2 (1250 1,250 mcg PO INGRAM 04/10/24 08/29/24 History Mcg = 83044 Iu)] Escitalopram [Lexapro] 10 mg PO DAILY 08/08/24 08/29/24 History Ipilimumab [Yervoy] 1 dose IV Q21D 08/08/24 08/29/24 History Nivolumab [Opdivo] 1 dose IV Q21D 08/08/24 08/29/24 History Omeprazole [PriLOSEC] 20 mg PO DAILY 08/08/24 08/29/24 History Ondansetron Odt [Zofran ODT] 8 mg PO Q8HR PRN 08/08/24 08/29/24 History Amiodarone [Cordarone] 200 mg PO BID #60 tab 08/14/24 08/29/24 Rx Losartan [Cozaar] 50 mg PO BID #60 tab 08/14/24 08/29/24 Rx Potassium Chloride ER [K-Dur 20] 20 meq PO DAILY 30 Days #30 tab 08/14/24 08/29/24 Rx amLODIPine [Norvasc] 10 mg PO DAILY #30 tab 08/14/24 08/29/24 Rx levETIRAcetam [Keppra] 500 mg PO Q12HR #60 tab 08/14/24 08/29/24 Rx Aspirin EC [Ecotrin Low Dose] 81 mg PO DAILY 08/29/24 08/29/24 History Lactulose 10 gm PO BID PRN 08/29/24 08/29/24 History Morphine Sulfate Ir [MSIR] 15 mg PO Q6H 08/29/24 08/29/24 History calcitrioL [Rocaltrol] 0.25 mcg PO DAILY 08/29/24 08/29/24 History Allergies Allergy/AdvReac Type Severity Reaction Status Date / Time fentanyl Allergy Unknown Verified 08/29/24 15:57 Sulfa (Sulfonamide Allergy Rash/Hives Verified 08/29/24 15:57 Antibiotics) NSAIDS (Non-Steroidal AdvReac NO NSAIDS Verified 08/29/24 15:57 Anti-Inflamma DUE TO ONLY 1 KIDNEY Physical Exam Vitals: Vital Signs Temp Pulse Pulse Resp BP BP Pulse Ox 09/05/24 12:10 156 H 24 98 09/05/24 12:05 163 H 22 98 09/05/24 12:00 149 H 24 97 09/05/24 11:55 144 H 22 96 09/05/24 11:50 142 H 23 97 09/05/24 11:45 129 H 19 96 09/05/24 11:40 134 H 23 96 09/05/24 11:35 134 H 22 09/05/24 11:30 98.9 F 146 H 26 H 98 09/05/24 11:15 106 H 22 99 09/05/24 11:00 102 H 22 98 09/05/24 10:45 94 21 97 09/05/24 10:30 95 20 97 09/05/24 10:15 96 21 98 09/05/24 10:00 98 21 99 09/05/24 09:45 98 21 100 09/05/24 09:30 98 20 99 09/05/24 09:28 09/05/24 09:15 97 21 99 09/05/24 09:00 98 20 99 09/05/24 08:45 99 20 98 09/05/24 08:30 101 H 26 H 09/05/24 08:15 99 20 98 09/05/24 08:00 98.8 F 94 20 105/73 97 09/05/24 07:45 94 20 97 09/05/24 07:30 95 20 97 09/05/24 07:15 97 20 97 09/05/24 07:00 96 20 105/73 98 09/05/24 06:45 96 20 99 09/05/24 06:30 94 20 99 09/05/24 06:15 93 20 103/67 98 09/05/24 06:00 95 20 97 09/05/24 05:45 96 20 98 09/05/24 05:30 96 20 108/68 98 09/05/24 05:15 93 20 98 09/05/24 05:00 93 20 98 09/05/24 04:45 95 20 97 09/05/24 04:30 96 20 97 09/05/24 04:15 98.4 F 98 20 104/66 98 09/05/24 04:00 98 72 17 98 09/05/24 03:45 98 20 98 09/05/24 03:30 98 21 98 09/05/24 03:29 09/05/24 03:15 95 20 103/62 97 09/05/24 03:00 93 20 97 09/05/24 02:45 93 20 97 07/01/25 02:30 93 20 97 09/05/24 02:15 93 20 112/65 98 09/05/24 02:00 92 520 H 98 09/05/24 01:45 90 20 98 09/05/24 01:30 92 20 97 09/05/24 01:15 89 20 107/70 98 09/05/24 01:00 88 20 98 09/05/24 00:45 87 20 99 09/05/24 00:30 97.9 F 87 20 97 09/05/24 00:15 80 20 95/62 98 09/05/24 00:00 80 72 20 98 09/04/24 23:45 81 20 99 09/04/24 23:30 81 20 98 09/04/24 23:15 80 20 98 09/04/24 23:00 81 20 98 09/04/24 22:45 81 20 98 09/04/24 22:30 80 20 98 09/04/24 22:15 80 20 99/56 99 09/04/24 22:00 78 20 98 09/04/24 21:45 79 20 98 09/04/24 21:30 80 20 99 09/04/24 21:19 79 20 114/67 98 09/04/24 21:00 81 20 99 09/04/24 20:45 79 20 99 09/04/24 20:30 78 20 99 09/04/24 20:15 78 20 93/56 99 09/04/24 20:00 77 20 99 09/04/24 19:45 77 20 99 09/04/24 19:30 76 20 99 09/04/24 19:25 09/04/24 19:15 75 20 92/57 99 09/04/24 19:00 75 20 99 09/04/24 18:55 72 20 09/04/24 18:50 09/04/24 18:45 74 20 99 09/04/24 18:30 74 20 98 09/04/24 18:15 74 20 113/67 98 09/04/24 18:00 75 20 97/54 97 09/04/24 17:45 71 20 99 09/04/24 17:30 69 20 100 09/04/24 17:15 71 20 78/53 100 09/04/24 17:00 70 20 69/47 99 09/04/24 16:45 72 20 73/51 100 09/04/24 16:30 96.7 F L 77 20 109/73 100 09/04/24 16:15 76 20 101/64 99 09/04/24 16:05 09/04/24 16:00 92 72 32 H 113/64 91 L 09/04/24 15:51 09/04/24 15:45 92 34 H 97/72 94 L 09/04/24 15:34 93 52 H 92/65 91 L 09/04/24 14:12 93 L 09/04/24 14:00 97.3 F L 100 34 H 97/64 92 L 09/04/24 13:50 34 H FiO2 09/05/24 12:10 09/05/24 12:05 09/05/24 12:00 50 09/05/24 11:55 09/05/24 11:50 09/05/24 11:45 09/05/24 11:40 09/05/24 11:35 09/05/24 11:30 50 09/05/24 11:15 09/05/24 11:00 09/05/24 10:45 09/05/24 10:30 09/05/24 10:15 09/05/24 10:00 09/05/24 09:45 09/05/24 09:30 09/05/24 09:28 50 09/05/24 09:15 09/05/24 09:00 09/05/24 08:45 09/05/24 08:30 09/05/24 08:15 09/05/24 08:00 50 09/05/24 07:45 09/05/24 07:30 09/05/24 07:15 09/05/24 07:00 09/05/24 06:45 09/05/24 06:30 09/05/24 06:15 09/05/24 06:00 09/05/24 05:45 09/05/24 05:30 09/05/24 05:15 09/05/24 05:00 09/05/24 04:45 09/05/24 04:30 09/05/24 04:15 09/05/24 04:00 50 09/05/24 03:45 09/05/24 03:30 09/05/24 03:29 50 09/05/24 03:15 09/05/24 03:00 09/05/24 02:45 09/05/24 02:30 09/05/24 02:15 09/05/24 02:00 09/05/24 01:45 09/05/24 01:30 09/05/24 01:15 09/05/24 01:00 09/05/24 00:45 09/05/24 00:30 50 09/05/24 00:15 50 09/05/24 00:00 50 09/04/24 23:45 09/04/24 23:30 09/04/24 23:15 09/04/24 23:00 09/04/24 22:45 09/04/24 22:30 09/04/24 22:15 09/04/24 22:00 09/04/24 21:45 09/04/24 21:30 09/04/24 21:19 09/04/24 21:00 09/04/24 20:45 09/04/24 20:30 09/04/24 20:15 09/04/24 20:00 09/04/24 19:45 09/04/24 19:30 09/04/24 19:25 50 09/04/24 19:15 09/04/24 19:00 09/04/24 18:55 50 09/04/24 18:50 50 09/04/24 18:45 09/04/24 18:30 09/04/24 18:15 09/04/24 18:00 09/04/24 17:45 09/04/24 17:30 09/04/24 17:15 09/04/24 17:00 09/04/24 16:45 09/04/24 16:30 09/04/24 16:15 09/04/24 16:05 100 09/04/24 16:00 100 09/04/24 15:51 100 09/04/24 15:45 09/04/24 15:34 09/04/24 14:12 09/04/24 14:00 09/04/24 13:50 Intake and Output 09/04/24 09/05/24 09/05/24 22:59 06:59 14:59 Intake Total 2001.265 599.368 187.032 Output Total 1200 1330 235 Balance 801.265 -730.632 -47.968 Intake: IV 1915 450 0 Dextrose 5% in Water 1, 1400 000 ml @ 300 mls/hr IV . Q3H20M [facility] Rx#:[id number] Sodium Chloride 0.45% 1, 100 450 0 000 ml @ 50 mls/hr IV . Q20H [facility] Rx#:[id number] Sodium Chloride 0.9% 250 415 ml @ 83 mls/hr IV .Q3H1M ONE with Pamidronate 30 mg Rx#:[id number] Intake, IV Titration 86.265 149.368 187.032 Amount Norepinephrine 8 mg In 23.574 51.977 101.863 Sodium Chloride 0.9% 250 ml @ 0.03 MCG/KG/MIN 4. 476 mls/hr IV .Q24H [facility] Rx#:[id number] propofoL 1,000 mg In 62.691 97.391 85.169 Empty Bag 1 bag @ 15 MCG/ KG/MIN 6.94 mls/hr IV . [id number] [facility] Rx#:[id number] Output: Gastric Drainage 100 100 Urine 800 1030 235 Stool 300 200 Other: Voiding Method Indwelling Catheter Indwelling Catheter Indwelling Catheter Weight 76.5 kg 76.5 kg ABP, PAP, CO, CI - Last 8 Hours Arterial Blood Pressure 109/61 Arterial Blood Pressure 127/73 Arterial Blood Pressure 84/51 Arterial Blood Pressure 78/46 Arterial Blood Pressure 88/51 Arterial Blood Pressure 82/48 Arterial Blood Pressure 97/54 Arterial Blood Pressure 88/52 Arterial Blood Pressure 100/60 Arterial Blood Pressure 120/64 Arterial Blood Pressure 106/53 Arterial Blood Pressure 89/49 Arterial Blood Pressure 85/48 Arterial Blood Pressure 90/50 Arterial Blood Pressure 95/50 Arterial Blood Pressure 99/51 Arterial Blood Pressure 96/49 Arterial Blood Pressure 102/51 Arterial Blood Pressure 104/54 Arterial Blood Pressure 110/57 Arterial Blood Pressure 125/67 Arterial Blood Pressure 115/59 Arterial Blood Pressure 102/53 Arterial Blood Pressure 99/52 Arterial Blood Pressure 102/52 Arterial Blood Pressure 109/55 Arterial Blood Pressure 112/54 Arterial Blood Pressure 117/59 Arterial Blood Pressure 132/65 Arterial Blood Pressure 102/52 Arterial Blood Pressure 105/53 Arterial Blood Pressure 113/56 Arterial Blood Pressure 117/58 Arterial Blood Pressure 99/52 Arterial Blood Pressure 99/54 Results 09/05/24 04:30 09/05/24 09:09 Cardiac Enzymes 09/04/24 09/05/24 Range/Units 12:37 04:30 AST 25 24 (14-36) U/L CBC 09/05/24 Range/Units 04:30 WBC 15.35 H (4.50-10.00) 10*3/uL RBC 4.10 (4.10-5.20) 10*6/uL Hgb 11.8 L (12.0-15.0) g/dL Hct 35.6 L (37.2-46.3) % Plt Count 221 (140-440) 10*3/uL Comprehensive Metabolic Panel 09/04/24 09/04/24 09/04/24 Range/Units 12:37 16:38 20:00 Sodium 152 H 146 H 136 L (137-145) mmol/L Potassium 4.7 (3.5-5.1) mmol/L Chloride 114 H (98-107) mmol/L Carbon Dioxide 25 (22-30) mmol/L BUN 60 H (7-17) mg/dL Creatinine 0.88 (0.52-1.04) mg/dL Glucose 107 H (74-99) mg/dL Calcium 10.7 H (8.4-10.2) mg/dL Unconjugated Bilirubin 0.2 (0.0-1.1) mg/dL AST 25 (14-36) U/L ALT 23 (4-34) U/L Alkaline Phosphatase 106 (38-126) U/L Total Protein 5.8 L (6.3-8.2) g/dL Albumin 2.6 L (3.5-5.0) g/dL 09/04/24 09/05/24 09/05/24 Range/Units 23:00 02:00 04:30 Sodium 140 141 140 (137-145) mmol/L Potassium 3.8 (3.5-5.1) mmol/L Chloride 106 (98-107) mmol/L Carbon Dioxide 23 (22-30) mmol/L BUN 43 H (7-17) mg/dL Creatinine 0.89 (0.52-1.04) mg/dL Glucose 116 H (74-99) mg/dL Calcium 9.4 (8.4-10.2) mg/dL Unconjugated Bilirubin (0.0-1.1) mg/dL AST 24 (14-36) U/L ALT 20 (4-34) U/L Alkaline Phosphatase 118 (38-126) U/L Total Protein 5.0 L (6.3-8.2) g/dL Albumin 2.2 L (3.5-5.0) g/dL 09/05/24 09/05/24 Range/Units 06:23 09:09 Sodium 139 141 (137-145) mmol/L Potassium (3.5-5.1) mmol/L Chloride (98-107) mmol/L Carbon Dioxide (22-30) mmol/L BUN (7-17) mg/dL Creatinine (0.52-1.04) mg/dL Glucose (74-99) mg/dL Calcium (8.4-10.2) mg/dL Unconjugated Bilirubin (0.0-1.1) mg/dL AST (14-36) U/L ALT (4-34) U/L Alkaline Phosphatase (38-126) U/L Total Protein (6.3-8.2) g/dL Albumin (3.5-5.0) g/dL Current Medications Generic Name Dose Route Start Last Admin Trade Name Freq PRN Reason Stop Dose Admin Acetaminophen 650 mg 08/29/24 15:54 09/02/24 17:16 Acetaminophen Tab 325 Mg Tab PO 650 mg Q6HR PRN Administration Mild Pain or Fever > 100.5 Alprazolam 0.5 mg 08/29/24 22:00 09/05/24 10:23 Alprazolam 0.5 Mg Tab PO Not Given TID ZAC Artificial Tears 1 drops 09/01/24 18:00 09/05/24 12:13 Artificial Tears-Hypromellose Drops 15 Ml Btl BOTH EYES 1 drops QID ZAC Administration Aspirin 81 mg 08/30/24 09:00 09/05/24 08:20 Aspirin 81 Mg PO 81 mg DAILY [facility] Administration Atorvastatin Calcium 40 mg 08/30/24 09:00 09/05/24 08:22 Atorvastatin 40 Mg Tab PO 40 mg DAILY [facility] Administration Chlorhexidine Gluconate 15 ml 09/04/24 21:00 09/05/24 08:20 Chlorhexidine Gluconate 15 Ml Cup MUCOUS MEM 15 ml BID ZAC Administration Escitalopram Oxalate 10 mg 08/30/24 09:00 09/05/24 10:23 Escitalopram 10 Mg Tab PO Not Given DAILY [facility] Propofol 1,000 mg/ IV Solution 100 mls @ 6.94 mls/hr 09/04/24 16:00 09/05/24 10:26 IV 25 mcg/kg/min .[id number] [facility] 11.567 mls/hr Administration Protocol 15 MCG/KG/MIN Norepinephrine Bitartrate 8 mg 258 mls @ 4.476 mls/hr 09/04/24 16:30 09/05/24 10:32 / Sodium Chloride IV 0.1 mcg/kg/min .Q24H [facility] 14.921 mls/hr Titration Protocol 0.03 MCG/KG/MIN Dextrose/Water 1,000 mls @ 75 mls/hr 09/05/24 06:45 09/05/24 07:01 Dextrose 5%-Water Iv Soln IV Not Given .[id number] [facility] Amiodarone HCl 150 mg/ 103 mls @ 618 mls/hr 09/05/24 13:20 Dextrose/Water IV 09/05/24 13:29 .Q10M ONE Amiodarone HCl 360 mg/ 200 mls @ 33.333 mls/hr 09/05/24 13:30 Dextrose/Water IV 09/05/24 19:29 .Q6H ONE Protocol 1 MG/MIN Amiodarone HCl 450 mg/ 250 mls @ 16.667 mls/hr 09/05/24 19:30 Dextrose/Water IV 09/06/24 13:29 .Q15H [facility] Protocol 0.5 MG/MIN Isosorbide Mononitrate 30 mg 08/30/24 09:00 09/05/24 08:13 Isosorbide Mononitrate Er 30 Mg Tab.Er.24h PO Not Given DAILY [facility] Lactulose 10 gm 08/29/24 18:44 Lactulose 20 Gm/30 Ml Cup PO BID PRN Constipation Levetiracetam 500 mg 09/05/24 06:00 09/05/24 06:10 Levetiracetam Iv 500 Mg/5 Ml Vial IVP 500 mg Q12H [facility] Administration Levothyroxine Sodium 137 mcg 08/30/24 06:30 09/05/24 06:09 Levothyroxine 137 Mcg Tab PO Not Given [email or web address] [facility] Loperamide HCl 2 mg 08/31/24 12:32 09/03/24 10:13 Loperamide 2 Mg Cap PO 2 mg QID PRN Administration Diarrhea Morphine Sulfate 4 mg 09/05/24 11:20 09/05/24 11:40 Morphine Sulfate 4 Mg/Ml Syringe IV 4 mg Q4HR PRN Administration Severe Pain (Scale 7 to 10) Morphine Sulfate 15 mg 09/05/24 12:00 09/05/24 12:14 Morphine Sulfate Ir 15 Mg Tablet PO 15 mg Q6H ZAC Administration Naloxone HCl 0.2 mg 08/29/24 15:54 Naloxone 0.4 Mg/Ml 1 Ml Vial IV Q2M PRN Opioid Reversal Ondansetron HCl 8 mg 08/29/24 18:44 Ondansetron Odt 8 Mg Tab.Rapdis PO Q8HR PRN Nausea Pantoprazole Sodium 40 mg 09/06/24 09:00 Pantoprazole 40 Mg/10 Ml Vial IVP DAILY [facility] Trospium 20 mg 08/30/24 09:00 09/05/24 09:43 Trospium Chloride 20 Mg Tablet PO 20 mg BID ZAC Administration Intake and Output 09/04/24 09/05/24 09/05/24 22:59 06:59 14:59 Intake Total 2001.265 599.368 187.032 Output Total 1200 1330 235 Balance 801.265 -730.632 -47.968 Intake: IV 1915 450 0 Dextrose 5% in Water 1, 1400 000 ml @ 300 mls/hr IV . Q3H20M [facility] Rx#:[id number] Sodium Chloride 0.45% 1, 100 450 0 000 ml @ 50 mls/hr IV . Q20H [facility] Rx#:[id number] Sodium Chloride 0.9% 250 415 ml @ 83 mls/hr IV .Q3H1M ONE with Pamidronate 30 mg Rx#:[id number] Intake, IV Titration 86.265 149.368 187.032 Amount Norepinephrine 8 mg In 23.574 51.977 101.863 Sodium Chloride 0.9% 250 ml @ 0.03 MCG/KG/MIN 4. 476 mls/hr IV .Q24H [facility] Rx#:[id number] propofoL 1,000 mg In 62.691 97.391 85.169 Empty Bag 1 bag @ 15 MCG/ KG/MIN 6.94 mls/hr IV . [id number] [facility] Rx#:[id number] Output: Gastric Drainage 100 100 Urine 800 1030 235 Stool 300 200 Other: Voiding Method Indwelling Catheter Indwelling Catheter Indwelling Catheter Weight 76.5 kg 76.5 kg Patient Weight 09/06/24 06:59 Weight 76.5 kg 09/05/24 04:30 09/05/24 09:09
[2024-09-05] MEDS: DEXTROSE 5% IN WATER 100 ML with AMIODARONE 150 MG IV ONE (13:04)
[2024-09-05] MEDS: AMIODARONE 360 MG in DEXTROSE 5% IN WATER 200 ML IV ONE (13:06)
--- NOTE | 2024-09-05 13:50 | P.PN ---
Subjective Progress Note Date: 09/05/24 I am following up with the patient and it seems that since yesterday the patient was intubated on a ventilator and is in ICU. Objective - Vital Signs Vital signs: Vital Signs Temp 98.9 F 09/05/24 11:30 Pulse 156 H 09/05/24 12:10 Resp 24 09/05/24 12:10 BP 105/73 09/05/24 08:00 Pulse Ox 98 09/05/24 12:10 FiO2 50 09/05/24 13:24 Intake & Output 09/04/24 09/05/24 09/05/24 18:59 06:59 18:59 Intake Total 2945.392 1535.241 187.032 Output Total 1400 2380 235 Balance 1545.392 -844.759 -47.968 Weight 76.5 kg 76.5 kg Intake: IV 1049 1316 0 Dextrose 5% in Water 1, 800 600 000 ml @ 300 mls/hr IV . Q3H20M [facility] Rx#:[id number] Sodium Chloride 0.45% 1, 550 0 000 ml @ 50 mls/hr IV . Q20H [facility] Rx#:[id number] Sodium Chloride 0.9% 250 249 166 ml @ 83 mls/hr IV .Q3H1M ONE with Pamidronate 30 mg Rx#:[id number] Intake, IV Titration 16.392 219.241 187.032 Amount Norepinephrine 8 mg In 10.146 65.405 101.863 Sodium Chloride 0.9% 250 ml @ 0.03 MCG/KG/MIN 4. 476 mls/hr IV .Q24H [facility] Rx#:[id number] propofoL 1,000 mg In 6.246 153.836 85.169 Empty Bag 1 bag @ 15 MCG/ KG/MIN 6.94 mls/hr IV . [id number] [facility] Rx#:[id number] Oral 1880 Output: Gastric Drainage 200 Urine 1400 1680 235 Uretheral (Velasquez) 1250 Stool 500 Other: Voiding Method Indwelling Catheter Indwelling Catheter Indwelling Catheter # Bowel Movements 2 ABP, PAP, CO, CI - Last Documented Arterial Blood Pressure 109/61 - Exam General: Laying in bed and does not appear in acute distress. Lung: Intubated on a ventilator. Neuro: Very limited. She is severely drowsy. No appreciable facial weakness from limitation of examination - Labs CBC & Chem 7: 09/05/24 04:30 09/05/24 09:09 Labs: Abnormal Lab Results - Last 24 Hours (Table) 09/04/24 09/04/24 09/04/24 Range/Units 13:54 13:56 15:35 WBC (4.50-10.00) 10*3/uL Hgb (12.0-15.0) g/dL Hct (37.2-46.3) % MPV (9.5-12.2) fL ABG pH 7.46 H (7.35-7.45) ABG pCO2 (35-45) mmHg ABG pO2 81 L (83-108) mmHg ABG HCO3 (21-25) mmol/L ABG Total CO2 26 H (19-24) mmol/L ABG O2 Saturation (94-97) % Hemoglobin (11.4-16.0) gm/dL Sodium (137-145) mmol/L BUN (7-17) mg/dL Glucose (74-99) mg/dL POC Glucose (mg/dL) 168 H 213 H (70-110) mg/dL Total Protein (6.3-8.2) g/dL Albumin (3.5-5.0) g/dL 09/04/24 09/04/24 09/04/24 Range/Units 16:38 16:52 20:00 WBC (4.50-10.00) 10*3/uL Hgb (12.0-15.0) g/dL Hct (37.2-46.3) % MPV (9.5-12.2) fL ABG pH 7.48 H (7.35-7.45) ABG pCO2 34 L (35-45) mmHg ABG pO2 358 H (83-108) mmHg ABG HCO3 26 H (21-25) mmol/L ABG Total CO2 27 H (19-24) mmol/L ABG O2 Saturation 99.7 H (94-97) % Hemoglobin 10.4 L (11.4-16.0) gm/dL Sodium 146 H 136 L (137-145) mmol/L BUN (7-17) mg/dL Glucose (74-99) mg/dL POC Glucose (mg/dL) (70-110) mg/dL Total Protein (6.3-8.2) g/dL Albumin (3.5-5.0) g/dL 09/05/24 09/05/24 09/05/24 Range/Units 04:30 04:30 04:31 WBC 15.35 H (4.50-10.00) 10*3/uL Hgb 11.8 L (12.0-15.0) g/dL Hct 35.6 L (37.2-46.3) % MPV 8.6 L (9.5-12.2) fL ABG pH 7.49 H (7.35-7.45) ABG pCO2 34 L (35-45) mmHg ABG pO2 109 H (83-108) mmHg ABG HCO3 26 H (21-25) mmol/L ABG Total CO2 27 H (19-24) mmol/L ABG O2 Saturation 98.0 H (94-97) % Hemoglobin (11.4-16.0) gm/dL Sodium (137-145) mmol/L BUN 43 H (7-17) mg/dL Glucose 116 H (74-99) mg/dL POC Glucose (mg/dL) (70-110) mg/dL Total Protein 5.0 L (6.3-8.2) g/dL Albumin 2.2 L (3.5-5.0) g/dL Assessment and Plan Assessment: * Altered mental status, likely due to toxic metabolic encephalopathy. Initially sodium is low and now Sodium is high, blood pressure is on low normal side and is low normal/border hypoxic (oxygen in low 90's). Also, possibly related to side effect of immunotherapy. No PRES or acute stroke on the repeated CT head. * Leukocytosis, rule out septic encephalopathy. * Hyponatremia-->Hypernatremia--resolved * Metastatic renal cell carcinoma * Possible new onset seizure 08/09/2024 * Hypertension * Hyperlipidemia * Coronary artery disease * Sleep apnea Plan: * MRI brain with and without contrast evaluate for above possibilities. Unable to obtain because cannot obtain clearance and currently on ventilator which is not MRI compatible. * EEG: This is an abnormal routine EEG. The background slowing suggestive of moderate to severe encephalopathy. There is motion artifact over the b ilateral frontal region. Otherwise, there is no focal slowing, epileptiform discharges or seizure on the EEG. * Repeat CT head on 09/04/2024: No acute intracranial process. Nonspecific minimal white matter changes * Continue Keppra 500 mg twice a day. * Oncology, nephrology following. * Will defer the rest of medical management to primary team and other specialist. Time with Patient: Less than 30
--- NOTE | 2024-09-05 14:20 | P.PN ---
Subjective Progress Note Date: 09/05/24 Principal diagnosis: Acute hypoxic respiratory failure with acute metabolic encephalopathy and apnea, multifactorial his is a 69-year-old female with history of renal cell carcinoma diagnosed in 2018, previous left nephrectomy no systemic treatment has been given. In April 09, 2001 5, patient developed right hip pain and difficulty bearing weight on her right lower extremity. MRI of the right femur thigh showed interosseous mass in the subcu trochanteric and intertrochanteric region of the right femur measuring 59 x 37 mm. Patient was felt to have bone lesion represen ting isolated metastasis from renal cell carcinoma. CT-guided biopsy and embolization on 04/2201 5 was done followed by debridement and prophylactic nail placement. Biopsy came back consistent with RCC clear cell type. Systemic treatment recommended for metastatic disease, and this was done patient received 3 cycles of chemotherapy utilizing dual CTL A4/PD-L1 inhibitor treatment. Patient was admitted this time on 08/29/2024, admitted mostly with symptoms of weakness and she was felt to be dehydrated she also had worsening diarrhea she complained of blurred vision as well as headache CT brain showed negative finding for acute intracranial process. Patient has been seen since admission by many consultants including oncology, nephrology, ophthalmology, neurology, patient was initially admitted with hyponatremia as low as 117 she was seen by nephrology received treatment, and eventually her sodium came back up, continues to rise as high as 152 and today's sodium is 146. Calcium level has been fluctuating from 9.5 on admission today it is 10.8. Today I was notified about this patient because the rapid response team responded because of her worsening mental status/altered mental status associated with dehydration hyponatremia hypercalcemia in the setting of metastatic renal cell carcinoma. In addition to all of this the patient has been developing abdominal distention and what seems to be almost Saurabh syndrome noted on CT of the abdomen and pelvis. Patient was having episodes of apnea brought into the ICU and shortly after because of her apnea episodes I recommended intubation and mechanical ventilation. She is now intubated, mechanically ventilated, ABG is pending however ABG prior to intubation showed a pO2 of 81 pCO2 35 pH of 7.46. Follow-up ABG is pending. Chest x-ray postintubation showed endotracheal tube in proper position, nasogastric tube in the stomach, lung volumes are slightly diminished but no acute process or infiltrate is noted. CT abdomen pelvis showed distended gas and fluid-filled colon without focal transition point extending from the rectum correlation for a colonic ileus versus Saurabh syndrome. T6 vertebral body showed lytic lesions suspicious for metastatic disease there is absent left kidney because of his previous nephrectomy there is also fixation hardware in the right femur and spine. After evaluating the patient in the ER, she was noted to be hypotensive postintubation fluid boluses were given in the form of LR and D5W I consulted general surgery to evaluate the patient for her abdominal distention. Labs were all reviewed. Seen today on 09/05/2024, remains intubated and mechanically ventilated, patient is on assist-control rate of 28 tidal volume 450 FiO2 50% and PEEP of 5 ABG showed a pO2 of 109 pCO2 34 pH of 7.45 patient is arousable to deep painful stimuli, still on propofol at 20 mcg/kg/min still requiring norepinephrine at 0.12 mcg/kg/min. WBC count is 15.3, hemoglobin is 11.8. Not much of a change noted since yesterday, patient has been developing episodes of atrial fibrillation with RVR, cardiology was consulted. And amiodarone was recommended and ordered for A-fib with RVR. Chest x-ray today showed low lung volumes, endotracheal tube and nasogastric tube in proper position. No evidence of pu lmonary edema or pneumonia. Objective - Vital Signs Vital signs: Vital Signs Temp 98.9 F 09/05/24 11:30 Pulse 156 H 09/05/24 12:10 Resp 24 09/05/24 12:10 BP 105/73 09/05/24 08:00 Pulse Ox 98 09/05/24 12:10 FiO2 50 09/05/24 13:24 Intake & Output 09/04/24 09/05/24 09/05/24 18:59 06:59 18:59 Intake Total 2945.392 1535.241 187.032 Output Total 1400 2380 235 Balance 1545.392 -844.759 -47.968 Weight 76.5 kg 76.5 kg Intake: IV 1049 1316 0 Dextrose 5% in Water 1, 800 600 000 ml @ 300 mls/hr IV . Q3H20M [facility] Rx#:[id number] Sodium Chloride 0.45% 1, 550 0 000 ml @ 50 mls/hr IV . Q20H [facility] Rx#:[id number] Sodium Chloride 0.9% 250 249 166 ml @ 83 mls/hr IV .Q3H1M ONE with Pamidronate 30 mg Rx#:[id number] Intake, IV Titration 16.392 219.241 187.032 Amount Norepinephrine 8 mg In 10.146 65.405 101.863 Sodium Chloride 0.9% 250 ml @ 0.03 MCG/KG/MIN 4. 476 mls/hr IV .Q24H [facility] Rx#:[id number] propofoL 1,000 mg In 6.246 153.836 85.169 Empty Bag 1 bag @ 15 MCG/ KG/MIN 6.94 mls/hr IV . [id number] [facility] Rx#:[id number] Oral 1880 Output: Gastric Drainage 200 Urine 1400 1680 235 Uretheral (Velasquez) 1250 Stool 500 Other: Voiding Method Indwelling Catheter Indwelling Catheter Indwelling Catheter # Bowel Movements 2 ABP, PAP, CO, CI - Last Documented Arterial Blood Pressure 109/61 - Exam Physical exam revealed a 69-year-old female intubated, sedated, not in distress. Head: Atraumatic, normocephalic HEENT: PERRLA, EOMI, nonicteric, no neck masses no JVD no stridor. Pulmonary: Diminished breath sounds at the bases no crackles rhonchi or wheezes Cardiac: Distant S1-S2, no S3 gallop. Abdomen: There is less abdominal distention today, patient has a fecal management system in place. Extremities no clubbing edema or cyanosis Neurologic: Could not assess, patient is sedated on propofol at 20 mcg/kg/min Psychiatric: Could not assess. - Labs CBC & Chem 7: 09/05/24 04:30 09/05/24 09:09 Labs: Abnormal Lab Results - Last 24 Hours (Table) 09/04/24 09/04/24 09/04/24 Range/Units 13:56 15:35 16:38 WBC (4.50-10.00) 10*3/uL Hgb (12.0-15.0) g/dL Hct (37.2-46.3) % MPV (9.5-12.2) fL ABG pH 7.46 H (7.35-7.45) ABG pCO2 (35-45) mmHg ABG pO2 81 L (83-108) mmHg ABG HCO3 (21-25) mmol/L ABG Total CO2 26 H (19-24) mmol/L ABG O2 Saturation (94-97) % Hemoglobin (11.4-16.0) gm/dL Sodium 146 H (137-145) mmol/L BUN (7-17) mg/dL Glucose (74-99) mg/dL POC Glucose (mg/dL) 213 H (70-110) mg/dL Total Protein (6.3-8.2) g/dL Albumin (3.5-5.0) g/dL 09/04/24 09/04/24 09/05/24 Range/Units 16:52 20:00 04:30 WBC 15.35 H (4.50-10.00) 10*3/uL Hgb 11.8 L (12.0-15.0) g/dL Hct 35.6 L (37.2-46.3) % MPV 8.6 L (9.5-12.2) fL ABG pH 7.48 H (7.35-7.45) ABG pCO2 34 L (35-45) mmHg ABG pO2 358 H (83-108) mmHg ABG HCO3 26 H (21-25) mmol/L ABG Total CO2 27 H (19-24) mmol/L ABG O2 Saturation 99.7 H (94-97) % Hemoglobin 10.4 L (11.4-16.0) gm/dL Sodium 136 L (137-145) mmol/L BUN (7-17) mg/dL Glucose (74-99) mg/dL POC Glucose (mg/dL) (70-110) mg/dL Total Protein (6.3-8.2) g/dL Albumin (3.5-5.0) g/dL 09/05/24 09/05/24 Range/Units 04:30 04:31 WBC (4.50-10.00) 10*3/uL Hgb (12.0-15.0) g/dL Hct (37.2-46.3) % MPV (9.5-12.2) fL ABG pH 7.49 H (7.35-7.45) ABG pCO2 34 L (35-45) mmHg ABG pO2 109 H (83-108) mmHg ABG HCO3 26 H (21-25) mmol/L ABG Total CO2 27 H (19-24) mmol/L ABG O2 Saturation 98.0 H (94-97) % Hemoglobin (11.4-16.0) gm/dL Sodium (137-145) mmol/L BUN 43 H (7-17) mg/dL Glucose 116 H (74-99) mg/dL POC Glucose (mg/dL) (70-110) mg/dL Total Protein 5.0 L (6.3-8.2) g/dL Albumin 2.2 L (3.5-5.0) g/dL Assessment and Plan Assessment: Impression: Acute respiratory failure with frequent episodes of apnea felt to be related to her altered mental status, and hypernatremia as well as hypercalcemia. 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 Acute metabolic encephalopathy Possible new onset seizure Benign essential hypertension Hypotension secondary to hypovolemia, strongly doubt sepsis. 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 Hence we will treat medically History of metastatic renal cell carcinoma Initial presentation of hyponatremia felt to be related to SIADH related to her underlying malignancy patient received Samsca and sodium during her initial presentation. Today's sodium is 143. Atrial fibrillation with RVR, patient is now on amiodarone. Recommendation: Continue ventilatory support Continue IV fluid and fluid boluses for hypotension Consider starting pressors if patient does not improve with fluid boluses Adjust ventilator settings based on the next ABG which is pending Placed on Zosyn empirically for possible abdominal sepsis Continue seizure meds Continue to monitor in ICU Patient remains critically ill Critical care time is34 minutes We will establish central access in this patient today because of high doses of pressors being Prognosis remains extremely poor and guarded Time with Patient: Greater than 30
[2024-09-05] MEDS: SODIUM CHLORIDE 0.9% 1,000 ML IV ONE (14:31)
[2024-09-05] MEDS: VASOPRESSIN 60 UNIT in SODIUM CHLORIDE 0.9% 150 ML IV SCH (15:45)
[2024-09-05 15:53] LABS: Glucose,Whole Blood 142 mg/dL (70-110)
[2024-09-05] MEDS: PIPERACILLIN-TAZOBACTAM 3.375 GM in SODIUM CHLORIDE 0.9% 100 ML IVPB SCH (15:58)
--- NOTE | 2024-09-05 16:29 | P.PN ---
Subjective Progress Note Date: 09/05/24 Principal diagnosis: Hyponatremia, on treatment for RCC Pt is seen in ICU today, sedated and mechanically ventilated. Objective - Vital Signs Vital signs: Vital Signs Temp 98.9 F 09/05/24 11:30 Pulse 144 H 09/05/24 14:00 Resp 22 09/05/24 14:00 BP 105/73 09/05/24 08:00 Pulse Ox 97 09/05/24 14:00 FiO2 50 09/05/24 13:24 Intake & Output 09/04/24 09/05/24 09/05/24 18:59 06:59 18:59 Intake Total 2945.392 0761.500 5301.433 Output Total 1400 2380 310 Balance 1545.392 -844.759 933.433 Weight 76.5 kg 76.5 kg Intake: IV 1049 1316 0 Dextrose 5% in Water 1, 800 600 000 ml @ 300 mls/hr IV . Q3H20M [facility] Rx#:[id number] Sodium Chloride 0.45% 1, 550 0 000 ml @ 50 mls/hr IV . Q20H [facility] Rx#:[id number] Sodium Chloride 0.9% 250 249 166 ml @ 83 mls/hr IV .Q3H1M ONE with Pamidronate 30 mg Rx#:[id number] Intake, IV Titration 16.392 969.363 4227.433 Amount Norepinephrine 8 mg In 10.146 65.405 158.264 Sodium Chloride 0.9% 250 ml @ 0.03 MCG/KG/MIN 4. 476 mls/hr IV .Q24H ZAC Rx#:[id number] Sodium Chloride 0.9% 1, 1000 000 ml @ 999 mls/hr IV . Q1H1M ONE Rx#:[id number] propofoL 1,000 mg In 6.246 153.836 85.169 Empty Bag 1 bag @ 15 MCG/ KG/MIN 6.94 mls/hr IV . [id number] ZAC Rx#:[id number] Oral 1880 Output: Gastric Drainage 200 Urine 1400 1680 310 Uretheral (Velasquez) 1250 Stool 500 Other: Voiding Method Indwelling Catheter Indwelling Catheter Indwelling Catheter # Bowel Movements 2 ABP, PAP, CO, CI - Last Documented Arterial Blood Pressure 106/67 - Constitutional General appearance: Present: average body habitus, no acute distress - EENT Eyes: Present: anicteric sclerae - Respiratory Details: vent - Cardiovascular Details: tachycardia on telemetry - Gastrointestinal General gastrointestinal: Present: distended, soft - Musculoskeletal Musculoskeletal: Absent: gait normal, generalized weakness, strength equal waylon aterally, right sided weakness, left sided weakness - Psychiatric Psychiatric: Absent: A&O x's 3, appropriate affect, intact judgment & insight - Labs CBC & Chem 7: 09/05/24 04:30 09/05/24 09:09 Labs: Abnormal Lab Results - Last 24 Hours (Table) 09/04/24 09/04/24 09/04/24 Range/Units 16:38 16:52 20:00 WBC (4.50-10.00) 10*3/uL Hgb (12.0-15.0) g/dL Hct (37.2-46.3) % MPV (9.5-12.2) fL ABG pH 7.48 H (7.35-7.45) ABG pCO2 34 L (35-45) mmHg ABG pO2 358 H (83-108) mmHg ABG HCO3 26 H (21-25) mmol/L ABG Total CO2 27 H (19-24) mmol/L ABG O2 Saturation 99.7 H (94-97) % Hemoglobin 10.4 L (11.4-16.0) gm/dL Sodium 146 H 136 L (137-145) mmol/L BUN (7-17) mg/dL Glucose (74-99) mg/dL POC Glucose (mg/dL) (70-110) mg/dL Total Protein (6.3-8.2) g/dL Albumin (3.5-5.0) g/dL 09/05/24 09/05/24 09/05/24 Range/Units 04:30 04:30 04:31 WBC 15.35 H (4.50-10.00) 10*3/uL Hgb 11.8 L (12.0-15.0) g/dL Hct 35.6 L (37.2-46.3) % MPV 8.6 L (9.5-12.2) fL ABG pH 7.49 H (7.35-7.45) ABG pCO2 34 L (35-45) mmHg ABG pO2 109 H (83-108) mmHg ABG HCO3 26 H (21-25) mmol/L ABG Total CO2 27 H (19-24) mmol/L ABG O2 Saturation 98.0 H (94-97) % Hemoglobin (11.4-16.0) gm/dL Sodium (137-145) mmol/L BUN 43 H (7-17) mg/dL Glucose 116 H (74-99) mg/dL POC Glucose (mg/dL) (70-110) mg/dL Total Protein 5.0 L (6.3-8.2) g/dL Albumin 2.2 L (3.5-5.0) g/dL 09/05/24 Range/Units 15:51 WBC (4.50-10.00) 10*3/uL Hgb (12.0-15.0) g/dL Hct (37.2-46.3) % MPV (9.5-12.2) fL ABG pH (7.35-7.45) ABG pCO2 (35-45) mmHg ABG pO2 (83-108) mmHg ABG HCO3 (21-25) mmol/L ABG Total CO2 (19-24) mmol/L ABG O2 Saturation (94-97) % Hemoglobin (11.4-16.0) gm/dL Sodium (137-145) mmol/L BUN (7-17) mg/dL Glucose (74-99) mg/dL POC Glucose (mg/dL) 142 H (70-110) mg/dL Total Protein (6.3-8.2) g/dL Albumin (3.5-5.0) g/dL Assessment and Plan (1) Altered mental status Current Visit: Yes Status: Acute Priority: High Code(s): R41.82 - ALTERED MENTAL STATUS, UNSPECIFIED SNOMED Code(s): 788878589 (2) Dehydration Current Visit: Yes Status: Acute Priority: High Code(s): E86.0 - DEHYDRATION SNOMED Code(s): 68402886 (3) Hyponatremia Current Visit: Yes Status: Acute Priority: High Code(s): E87.1 - HYPO- OSMOLALITY AND HYPONATREMIA SNOMED Code(s): 17617169 (4) Hypercalcemia Current Visit: Yes Status: Acute Priority: High Code(s): E83.52 - HYPERCALCEMIA SNOMED Code(s): 33131665 (5) Renal cell carcinoma Current Visit: Yes Status: Acute Priority: High Code(s): C64.9 - MALIGNANT NEOPLASM OF UNSP KIDNEY, EXCEPT RENAL PELVIS SNOMED Code(s): 200843944 Plan: Dehydration, diarrhea, LAUREL Admitted with diarrhea, dehydration, weakness, and hyponatremia -Cr improved with hydration, BUN slightly improved today. -Sodium 136 this AM. On recheck x 2-Na+149, 153. Na+ supplements stopped, Nephrology modifying medications/fluids. Today Na+ normal -Stool studies neg, cdiff neg. Lactoferritin positive-surgery consulted -LFTs, bili/fractions checked, WNL -CT AP showing gas, fluid filled colon. Fecal mgmt system in place. Surgery has seen pt. Electrolyte derangements -hyponatremia, hypernatremia-levels improved today. Nephrology following -Hypercalcemia-pamidronate given, Ca++ normal today Metastatic renal cell carcinoma - Diagnosis and treatment as stated in HPI - Metastatic RCC, bone only. Treated by Orthopedic Oncology to prevent a pathological fracture rt femur. She has had radiation to the area. - She was started on dual immunotherapy, with Opdivo/yervoy. S/p cycle 3 on 08/21. - No further treatment with dual IO planned at this time. Discussed case with Nephrology Reasonable to see how pt does as her electrolytes are improved. Pending impact of Cardiology interventions. Cont to follow.
--- NOTE | 2024-09-05 18:27 | P.PN ---
Subjective Progress Note Date: 09/05/24 Principal diagnosis: Abdominal distention Patient remains on the ventilator. Unfortunately the patient's pressor requirements have increased further. She is less distended today. She did have moderate amount of loose liquid stool out through the fecal management system overnight. 50 cc more today. 100 cc out through the NG tube. She is afebrile. White blood cell count increased slightly at 15. C. difficile is negative. Repeat abdominal x-rays show persistent bowel dilation although slightly improved. No free air seen. Objective - Vital Signs Vital signs: Vital Signs Temp 98.9 F 09/05/24 16:15 Pulse 73 09/05/24 16:30 Resp 20 09/05/24 16:30 BP 105/73 09/05/24 08:00 Pulse Ox 97 09/05/24 16:30 FiO2 50 09/05/24 16:00 Intake & Output 09/04/24 09/05/24 09/05/24 18:59 06:59 18:59 Intake Total 2945.392 6375.113 7099.621 Output Total 1400 2380 450 Balance 1545.392 -844.759 946.621 Weight 76.5 kg 76.5 kg Intake: IV 1049 1316 0 Dextrose 5% in Water 1, 800 600 000 ml @ 300 mls/hr IV . Q3H20M [facility] Rx#:[id number] Sodium Chloride 0.45% 1, 550 0 000 ml @ 50 mls/hr IV . Q20H ZAC Rx#:[id number] Sodium Chloride 0.9% 250 249 166 ml @ 83 mls/hr IV .Q3H1M ONE with Pamidronate 30 mg Rx#:[id number] Intake, IV Titration 16.392 834.328 8473.621 Amount Norepinephrine 8 mg In 10.146 65.405 311.452 Sodium Chloride 0.9% 250 ml @ 0.03 MCG/KG/MIN 4. 476 mls/hr IV .Q24H ZAC Rx#:[id number] Sodium Chloride 0.9% 1, 1000 000 ml @ 999 mls/hr IV . Q1H1M ONE Rx#:[id number] propofoL 1,000 mg In 6.246 153.836 85.169 Empty Bag 1 bag @ 15 MCG/ KG/MIN 6.94 mls/hr IV . [id number] [facility] Rx#:[id number] Oral 1880 Output: Gastric Drainage 200 Urine 1400 1680 450 Uretheral (Velasquez) 1250 Stool 500 Other: Voiding Method Indwelling Catheter Indwelling Catheter Indwelling Catheter # Bowel Movements 2 ABP, PAP, CO, CI - Last Documented Arterial Blood Pressure 128/67 - Exam Abdomen: Soft, mild to moderate distention, mild tenderness diffusely, no rebound or guarding - Labs CBC & Chem 7: 09/05/24 04:30 09/05/24 16:06 Labs: Abnormal Lab Results - Last 24 Hours (Table) 09/04/24 09/05/24 09/05/24 Range/Units 20:00 04:30 04:30 WBC 15.35 H (4.50-10.00) 10*3/uL Hgb 11.8 L (12.0-15.0) g/dL Hct 35.6 L (37.2-46.3) % MPV 8.6 L (9.5-12.2) fL ABG pH (7.35-7.45) ABG pCO2 (35-45) mmHg ABG pO2 (83-108) mmHg ABG HCO3 (21-25) mmol/L ABG Total CO2 (19-24) mmol/L ABG O2 Saturation (94-97) % Sodium 136 L (137-145) mmol/L BUN 43 H (7-17) mg/dL Glucose 116 H (74-99) mg/dL POC Glucose (mg/dL) (70-110) mg/dL Total Protein 5.0 L (6.3-8.2) g/dL Albumin 2.2 L (3.5-5.0) g/dL 09/05/24 09/05/24 Range/Units 04:31 15:51 WBC (4.50-10.00) 10*3/uL Hgb (12.0-15.0) g/dL Hct (37.2-46.3) % MPV (9.5-12.2) fL ABG pH 7.49 H (7.35-7.45) ABG pCO2 34 L (35-45) mmHg ABG pO2 109 H (83-108) mmHg ABG HCO3 26 H (21-25) mmol/L ABG Total CO2 27 H (19-24) mmol/L ABG O2 Saturation 98.0 H (94-97) % Sodium (137-145) mmol/L BUN (7-17) mg/dL Glucose (74-99) mg/dL POC Glucose (mg/dL) 142 H (70-110) mg/dL Total Protein (6.3-8.2) g/dL Albumin (3.5-5.0) g/dL Assessment and Plan (1) Abdominal distention Narrative/Plan: Patient's abdomen is less distended than yesterday. 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 Patient does have some tenderness and increasing pressor requirements. Potential for bowel ischemia remains however patient not felt to be a candidate for any surgical intervention at this time. Apparently family plans to discuss the extent of care with oncology tomorrow. Continue supportive care with bowel rest, fecal management system decompression, IV antibiotics. Current Visit: Yes Status: Acute Code(s): R14.0 - ABDOMINAL DISTENSION (GASEOUS) SNOMED Code(s): 32568384
[2024-09-05] MEDS: AMIODARONE 450 MG in DEXTROSE 5% IN WATER 250 ML IV SCH (18:34)
[2024-09-05 23:36] LABS: Glucose,Whole Blood 138 mg/dL (70-110)
[2024-09-06 05:31] LABS: HCT 36.4 % (37.2-46.3); HGB 11.9 g/dL (12.0-15.0); MCH 28.3 pg (27.0-32.0); MCHC 32.7 g/dL (32.0-37.0); MCV 86.5 fL (80.0-97.0); Platelet Count 173 10*3/uL (140-440); RBC 4.21 10*6/uL (4.10-5.20); RDW 17.2 % (11.5-14.5); WBC 16.37 10*3/uL (4.50-10.00)
[2024-09-06 05:37] LABS: Glucose,Whole Blood 136 mg/dL (70-110)
[2024-09-06] MEDS: DEXTROSE 5% IN WATER 100 ML with AMIODARONE 150 MG IV ONE (05:50)
[2024-09-06 05:52] LABS: ALT 16 U/L (4-34); AST 18 U/L (14-36); African American GFR (CKD) 70 (>60 ml/min/1.73 sqM); Albumin 1.9 g/dL (3.5-5.0); Alkaline Phosphatase 110 U/L (38-126); Anion Gap 11 mmol/L; Blood Urea Nitrogen 36 mg/dL (7-17); Calcium 7.4 mg/dL (8.4-10.2); Carbon Dioxide 19 mmol/L (22-30); Chloride 111 mmol/L (98-107); Glucose 141 mg/dL (74-99); Non-African American GFR(CKD) 61 (>60 ml/min/1.73 sqM); Potassium 3.6 mmol/L (3.5-5.1); Sodium 141 mmol/L (137-145); Total Protein 4.5 g/dL (6.3-8.2)
[2024-09-06 06:11] LABS: ABG HCO3 23 mmol/L (21-25); ABG PCO2 31 mmHg (35-45); ABG PH 7.48 (7.35-7.45); ABG PO2 72 mmHg (83-108); ABG TCO2 24 mmol/L (19-24); Allen Test Performed? Yes
[2024-09-06] MEDS: POTASSIUM BICARBONATE/CIT AC 20 MEQ TABLET.EFF NG-TUBE SCH (06:16)
--- NOTE | 2024-09-06 07:10 | P.PN ---
Subjective Progress Note Date: 09/06/24 The patient is a 69-year-old female patient with extensive medical history consistent of metastatic renal cell carcinoma as well as history of CAD based on heart catheterization in 2019 showing intermediate disease involving the left circumflex documented to be nonflow-limiting at that point as well as history of hypertension and dyslipidemia and overweight and sleep apnea as well as electrolytes abnormalities. The patient was admitted to the hospital few days ago with progressive weakness and fatigue and she was found to have severe electrolyte abnormalities and also she was found to be dehydrated where she was experiencing diarrhea. CT scan was performed and showed no acute intra- abdominal process. During her hospital stay and within the last 24 hours she developed worsening change in mental status and subsequently the patient was intubated and placed on mechanical ventilation to protect her airways. We consulted to see the patient because of A-fib with RVR. There is a reported history of atrial fibrillation in the patient's medical records but she was not on any anticoagulation likely because of metastatic cancer and possible high risk of bleeding. Currently patient is intubated and she is sedated. The history was taken from the chart as well as from the nurse taking care of the patient. Hemodynamically she is unstable and requiring small dose of norepinephrine. The EKG showed atrial fibrillation with RVR with diffuse ST and T wave abnormalities noted as well. She is on beta-saida which I am going to stop and going to start the patient on amiodarone bolus and drip. I will hold on any oral anticoagulation or IV anticoagulation at this point given the possible risk of bleeding. The physical examination is remarkable for intubated patient on mechanical ventilation with irregular rhythm and systolic murmur at the right and left upper sternal border with diminished breathing sounds bilaterally and no edema was noted September 06, 2024 The patient was seen and evaluated this morning which she continues to be intubated. She continues to be hemodynamically unstable and requiring norepinephrine as well as vasopressors. She is on amiodarone IV and she was converted to normal sinus mechanism subsequently came back to A-fib with a heart rate around 120 bpm. We will find out if the patient is a candidate to receive anticoagulation using heparin IV if that safe from the surgical standpoint of view. The echo still pending. The physical examination is remarkable for intubated patient with irregular rhythm and diminished breathing sounds bilaterally and no edema was noted in the lower extremities Assessment Change in mental status Acute hypoxic respiratory failure A-fib with RVR Metastatic renal cell carcinoma Electrolyte abnormalities Multiple comorbid conditions Plan Continue amiodarone IV Consider heparin IV if that is safe from the surgical standpoint of view Consider switching the patient to oral amiodarone Obtain an echocardiogram with Doppler Further recommendation to follow Assess the need for anticoagulation down the line Objective - Vital Signs Vital signs: Vital Signs Temp 98.8 F 09/06/24 05:30 Pulse 125 H 09/06/24 07:00 Resp 21 09/06/24 07:00 BP 124/68 09/06/24 04:15 Pulse Ox 96 09/06/24 07:00 FiO2 50 09/06/24 04:00 Intake & Output 09/05/24 09/06/24 09/06/24 18:59 06:59 18:59 Intake Total 1453.022 535.813 Output Total 660 1215 Balance 793.022 -679.187 Weight 76.5 kg 81 kg Intake: IV 0 100 Piperacillin-Tazobactam 3 100 .375 gm In Sodium Chloride 0.9% 100 ml @ 25 mls/hr IVPB Q8HR [facility] Rx# :[id number] Sodium Chloride 0.45% 1, 0 000 ml @ 50 mls/hr IV . Q20H [facility] Rx#:[id number] Intake, IV Titration 1453.022 435.813 Amount Norepinephrine 8 mg In 367.853 335.813 Sodium Chloride 0.9% 250 ml @ 0.03 MCG/KG/MIN 4. 476 mls/hr IV .Q24H [facility] Rx#:[id number] Sodium Chloride 0.9% 1, 1000 000 ml @ 999 mls/hr IV . Q1H1M [facility] Rx#:[id number] propofoL 1,000 mg In 85.169 100 Empty Bag 1 bag @ 15 MCG/ KG/MIN 6.94 mls/hr IV . [id number] [facility] Rx#:[id number] Output: Gastric Drainage 150 400 Urine 510 815 Other: Voiding Method Indwelling Catheter Indwelling Catheter ABP, PAP, CO, CI - Last Documented Arterial Blood Pressure 111/70 - Labs CBC & Chem 7: 09/06/24 05:20 09/06/24 05:20 Labs: Abnormal Lab Results - Last 24 Hours (Table) 09/05/24 09/05/24 09/06/24 Range/Units 15:51 23:35 05:20 WBC 16.37 H (4.50-10.00) 10*3/uL Hgb 11.9 L (12.0-15.0) g/dL Hct 36.4 L (37.2-46.3) % MPV 8.4 L (9.5-12.2) fL ABG pH (7.35-7.45) ABG pCO2 (35-45) mmHg ABG pO2 (83-108) mmHg ABG O2 Saturation (94-97) % Chloride (98-107) mmol/L Carbon Dioxide (22-30) mmol/L BUN (7-17) mg/dL Glucose (74-99) mg/dL POC Glucose (mg/dL) 142 H 138 H (70-110) mg/dL Calcium (8.4-10.2) mg/dL Total Protein (6.3-8.2) g/dL Albumin (3.5-5.0) g/dL 09/06/24 09/06/24 09/06/24 Range/Units 05:20 05:36 06:04 WBC (4.50-10.00) 10*3/uL Hgb (12.0-15.0) g/dL Hct (37.2-46.3) % MPV (9.5-12.2) fL ABG pH 7.48 H (7.35-7.45) ABG pCO2 31 L (35-45) mmHg ABG pO2 72 L (83-108) mmHg ABG O2 Saturation 93.4 L (94-97) % Chloride 111 H (98-107) mmol/L Carbon Dioxide 19 L (22-30) mmol/L BUN 36 H (7-17) mg/dL Glucose 141 H (74-99) mg/dL POC Glucose (mg/dL) 136 H (70-110) mg/dL Calcium 7.4 L (8.4-10.2) mg/dL Total Protein 4.5 L (6.3-8.2) g/dL Albumin 1.9 L (3.5-5.0) g/dL
[2024-09-06] MEDS ORDERED: HEPARIN SODIUM 1,000 UN/ML (10ML VL) IV PRN (07:36)
--- NOTE | 2024-09-06 08:26 | XR ---
EXAMINATION TYPE: XR chest 1V portable DATE OF EXAM: 09/06/2024 5:36 AM COMPARISON: 09/05/2024 CLINICAL INDICATION: Female, 69 years old with history of Tube placement, FINDINGS: Indwelling tubes and catheters are unchanged. No change in bibasilar opacities. Stable appearance of the cardio-mediastinal structures at this time. IMPRESSION: 1. Stable portable chest. Clinical correlation and follow up until resolution is recommended. [facility], , 09/06/2024 8:23 AM
[2024-09-06] MEDS: HEPARIN SODIUM 1,000 UN/ML (10ML VL) IV ONE (08:43)
[2024-09-06] MEDS: HEPARIN SOD,PORK IN 0.45% NACL 25,000 UNIT in 0.45% NACL 1 250ML.BAG IV SCH (08:43)
[2024-09-06] MEDS: PANTOPRAZOLE 40 MG/10 ML VIAL IVP SCH (08:57)
--- NOTE | 2024-09-06 09:51 | P.PN ---
Subjective Patient is seen in follow-up for hyponatremia. Sodium level stable at 141. She is currently off IV fluids. Intubated. On Levophed and vasopressin. Also on amiodarone drip for A-fib with RVR. Vital signs are stable. On vasopressor support. General: Resting in bed. HEENT: Intubated. LUNGS: Scattered rhonchi. HEART: Rate and Rhythm are regular. ABDOMEN: No distention. EXTREMITITES: No edema. Objective - Vital Signs Vital signs: Vital Signs Temp 98.8 F 09/06/24 05:30 Pulse 125 H 09/06/24 07:00 Resp 21 09/06/24 07:00 BP 124/68 09/06/24 04:15 Pulse Ox 96 09/06/24 07:00 FiO2 50 09/06/24 09:37 Intake & Output 09/05/24 09/06/24 09/06/24 18:59 06:59 18:59 Intake Total 1453.022 535.813 58.689 Output Total 660 1215 Balance 793.022 -679.187 58.689 Weight 76.5 kg 81 kg Intake: IV 0 100 Piperacillin-Tazobactam 3 100 .375 gm In Sodium Chloride 0.9% 100 ml @ 25 mls/hr IVPB Q8HR [facility] Rx# :[id number] Sodium Chloride 0.45% 1, 0 000 ml @ 50 mls/hr IV . Q20H [facility] Rx#:[id number] Intake, IV Titration 1453.022 435.813 58.689 Amount Norepinephrine 8 mg In 367.853 335.813 58.689 Sodium Chloride 0.9% 250 ml @ 0.03 MCG/KG/MIN 4. 476 mls/hr IV .Q24H [facility] Rx#:[id number] Sodium Chloride 0.9% 1, 1000 000 ml @ 999 mls/hr IV . Q1H1M [facility] Rx#:[id number] propofoL 1,000 mg In 85.169 100 Empty Bag 1 bag @ 15 MCG/ KG/MIN 6.94 mls/hr IV . [id number] [facility] Rx#:[id number] Output: Gastric Drainage 150 400 Urine 510 815 Other: Voiding Method Indwelling Catheter Indwelling Catheter ABP, PAP, CO, CI - Last Documented Arterial Blood Pressure 111/70 - Labs CBC & Chem 7: 07/02/25 05:20 09/06/24 05:20 Labs: Abnormal Lab Results - Last 24 Hours (Table) 09/05/24 09/05/24 09/06/24 Range/Units 15:51 23:35 05:20 WBC 16.37 H (4.50-10.00) 10*3/uL Hgb 11.9 L (12.0-15.0) g/dL Hct 36.4 L (37.2-46.3) % MPV 8.4 L (9.5-12.2) fL ABG pH (7.35-7.45) ABG pCO2 (35-45) mmHg ABG pO2 (83-108) mmHg ABG O2 Saturation (94-97) % Chloride (98-107) mmol/L Carbon Dioxide (22-30) mmol/L BUN (7-17) mg/dL Glucose (74-99) mg/dL POC Glucose (mg/dL) 142 H 138 H (70-110) mg/dL Calcium (8.4-10.2) mg/dL Total Protein (6.3-8.2) g/dL Albumin (3.5-5.0) g/dL 09/06/24 09/06/24 09/06/24 Range/Units 05:20 05:36 06:04 WBC (4.50-10.00) 10*3/uL Hgb (12.0-15.0) g/dL Hct (37.2-46.3) % MPV (9.5-12.2) fL ABG pH 7.48 H (7.35-7.45) ABG pCO2 31 L (35-45) mmHg ABG pO2 72 L (83-108) mmHg ABG O2 Saturation 93.4 L (94-97) % Chloride 111 H (98-107) mmol/L Carbon Dioxide 19 L (22-30) mmol/L BUN 36 H (7-17) mg/dL Glucose 141 H (74-99) mg/dL POC Glucose (mg/dL) 136 H (70-110) mg/dL Calcium 7.4 L (8.4-10.2) mg/dL Total Protein 4.5 L (6.3-8.2) g/dL Albumin 1.9 L (3.5-5.0) g/dL Microbiology - Last 24 Hours (Table) 09/04/24 17:45 Gram Stain - Preliminary Sputum Assessment and Plan Plan: Assessment: 1. Hyponatremia, initially hypovolemic. Component of SIADH. Status post Samsca and salt tabs this admission. Sodium level corrected rapidly and was subsequently given DDAVP and D5W to reverse the rapid correction. Sodium level now normal. Urine sodium less than 20 and urine osmolality 322. TSH normal. Cortisol level not low. 2. 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 3. History of left nephrectomy secondary to malignancy. 4. Stage IV renal cancer with bone metastasis. 5. Hypercalcemia secondary to vitamin D and calcitriol. Underlying malignancy also contributing factor. Better. Status post pamidronate given September 04, 2024. Plan: Remains off IV fluids. Wean FiO2 and vasopressors. Prognosis poor.
[2024-09-06 12:18] LABS: ABG HCO3 22 mmol/L (21-25); ABG PCO2 32 mmHg (35-45); ABG PH 7.45 (7.35-7.45); ABG PO2 74 mmHg (83-108); ABG TCO2 23 mmol/L (19-24)
[2024-09-06 12:21] LABS: Allen Test Performed? no
[2024-09-06] MEDS: LACTATED RINGERS 500 ML IV ONE (12:46)
--- NOTE | 2024-09-06 14:09 | P.PN ---
Subjective Progress Note Date: 09/06/24 Principal diagnosis: Hyponatremia, on treatment for RCC Pt is seen in ICU today, mechanically ventilated but, being weaned off sedation. Her eyes track, she follows simple commands Objective - Vital Signs Vital signs: Vital Signs Temp 98.6 F 09/06/24 12:00 Pulse 93 09/06/24 13:00 Resp 24 09/06/24 13:00 BP 125/78 09/06/24 12:15 Pulse Ox 95 09/06/24 13:00 FiO2 50 09/06/24 13:00 Intake & Output 09/05/24 09/06/24 09/06/24 18:59 06:59 18:59 Intake Total 1453.022 535.813 603.257 Output Total 660 1215 280 Balance 793.022 -679.187 323.257 Weight 76.5 kg 81 kg Intake: IV 0 100 380 0.9 Sodium Chloride 30 Lactated Ringers 500 ml @ 250 999 mls/hr IV .Q31M [facility] Rx#:[id number] Piperacillin-Tazobactam 3 100 100 .375 gm In Sodium Chloride 0.9% 100 ml @ 25 mls/hr IVPB Q8HR [facility] Rx# :[id number] Sodium Chloride 0.45% 1, 0 000 ml @ 50 mls/hr IV . Q20H [facility] Rx#:[id number] Intake, IV Titration 1453.022 435.813 223.257 Amount Norepinephrine 8 mg In 367.853 335.813 123.786 Sodium Chloride 0.9% 250 ml @ 0.03 MCG/KG/MIN 4. 476 mls/hr IV .Q24H [facility] Rx#:[id number] Sodium Chloride 0.9% 1, 1000 000 ml @ 999 mls/hr IV . Q1H1M [facility] Rx#:[id number] propofoL 1,000 mg In 85.169 100 99.471 Empty Bag 1 bag @ 15 MCG/ KG/MIN 6.94 mls/hr IV . [id number] [facility] Rx#:[id number] Output: Gastric Drainage 150 400 Urine 510 815 280 Other: Voiding Method Indwelling Catheter Indwelling Catheter Indwelling Catheter ABP, PAP, CO, CI - Last Documented Arterial Blood Pressure 103/56 - Constitutional General appearance: Present: average body habitus, cooperative, no acute distress - EENT Eyes: Present: anicteric sclerae, EOMI ENT: Present: hearing grossly normal - Cardiovascular Rhythm: regular - Peripheral edema leg Peripheral Edema: bilateral: Trace - Gastrointestinal General gastrointestinal: Present: distended - Musculoskeletal Musculoskeletal: Present: generalized weakness - Labs CBC & Chem 7: 09/06/24 05:20 09/06/24 05:20 Labs: Abnormal Lab Results - Last 24 Hours (Table) 09/05/24 09/05/24 09/06/24 Range/Units 15:51 23:35 05:20 WBC 16.37 H (4.50-10.00) 10*3/uL Hgb 11.9 L (12.0-15.0) g/dL Hct 36.4 L (37.2-46.3) % MPV 8.4 L (9.5-12.2) fL ABG pH (7.35-7.45) ABG pCO2 (35-45) mmHg ABG pO2 (83-108) mmHg ABG O2 Saturation (94-97) % Chloride (98-107) mmol/L Carbon Dioxide (22-30) mmol/L BUN (7-17) mg/dL Glucose (74-99) mg/dL POC Glucose (mg/dL) 142 H 138 H (70-110) mg/dL Calcium (8.4-10.2) mg/dL Total Protein (6.3-8.2) g/dL Albumin (3.5-5.0) g/dL 09/06/24 09/06/24 09/06/24 Range/Units 05:20 05:36 06:04 WBC (4.50-10.00) 10*3/uL Hgb (12.0-15.0) g/dL Hct (37.2-46.3) % MPV (9.5-12.2) fL ABG pH 7.48 H (7.35-7.45) ABG pCO2 31 L (35-45) mmHg ABG pO2 72 L (83-108) mmHg ABG O2 Saturation 93.4 L (94-97) % Chloride 111 H (98-107) mmol/L Carbon Dioxide 19 L (22-30) mmol/L BUN 36 H (7-17) mg/dL Glucose 141 H (74-99) mg/dL POC Glucose (mg/dL) 136 H (70-110) mg/dL Calcium 7.4 L (8.4-10.2) mg/dL Total Protein 4.5 L (6.3-8.2) g/dL Albumin 1.9 L (3.5-5.0) g/dL 09/06/24 Range/Units 12:16 WBC (4.50-10.00) 10*3/uL Hgb (12.0-15.0) g/dL Hct (37.2-46.3) % MPV (9.5-12.2) fL ABG pH (7.35-7.45) ABG pCO2 32 L (35-45) mmHg ABG pO2 74 L (83-108) mmHg ABG O2 Saturation 93.3 L (94-97) % Chloride (98-107) mmol/L Carbon Dioxide (22-30) mmol/L BUN (7-17) mg/dL Glucose (74-99) mg/dL POC Glucose (mg/dL) (70-110) mg/dL Calcium (8.4-10.2) mg/dL Total Protein (6.3-8.2) g/dL Albumin (3.5-5.0) g/dL Microbiology - Last 24 Hours (Table) 09/04/24 17:45 Gram Stain - Preliminary Sputum Sputum Culture - Preliminary Assessment and Plan (1) Altered mental status Current Visit: Yes Status: Acute Priority: High Code(s): R41.82 - ALTERED MENTAL STATUS, UNSPECIFIED SNOMED Code(s): 094170885 (2) Dehydration Current Visit: Yes Status: Acute Priority: High Code(s): E86.0 - DEHYDRATION SNOMED Code(s): 90042072 (3) Hyponatremia Current Visit: Yes Status: Acute Priority: High Code(s): E87.1 - HYPO- OSMOLALITY AND HYPONATREMIA SNOMED Code(s): 42597012 (4) Hypercalcemia Current Visit: Yes Status: Acute Priority: High Code(s): E83.52 - HYPERCALCEMIA SNOMED Code(s): 76996502 (5) Renal cell carcinoma Current Visit: Yes Status: Acute Priority: High Code(s): C64.9 - MALIGNANT NEOPLASM OF UNSP KIDNEY, EXCEPT RENAL PELVIS SNOMED Code(s): 413541066 Plan: Dehydration, diarrhea, LAUREL Admitted with diarrhea, dehydration, weakness, and hyponatremia -Since admit for above, pt has had an eventful hospitalization. Significant electrolyte derangements, resp failure and ultimately intubation. Her lab abnormalities have normalized/improved, she is doing better in general. Plans to try and extubate today. See how pt does -Stool studies neg, cdiff neg. Lactoferritin positive -CT AP showing gas, fluid filled colon. Fecal mgmt system in place. Surgery has seen pt. Electrolyte derangements -hyponatremia, hypernatremia-levels improved today. Nephrology following -Hypercalcemia-pamidronate given, Ca++ normal today Metastatic renal cell carcinoma - Diagnosis and treatment as stated in HPI - Metastatic RCC, bone only. Treated by Orthopedic Oncology to prevent a pathological fracture rt femur. She has had radiation to the area. - She was started on dual immunotherapy, with Opdivo/yervoy. S/p cycle 3 on 08/21. - No further treatment with dual IO planned at this time.
--- NOTE | 2024-09-06 15:20 | P.PN ---
Subjective Progress Note Date: 09/06/24 Principal diagnosis: Acute hypoxic respiratory failure with acute metabolic encephalopathy and apnea, multifactorial his is a 69-year-old female with history of renal cell carcinoma diagnosed in 2018, previous left nephrectomy no systemic treatment has been given. In April 09, 2001 5, patient developed right hip pain and difficulty bearing weight on her right lower extremity. MRI of the right femur thigh showed interosseous mass in the subcu trochanteric and intertrochanteric region of the right femur measuring 59 x 37 mm. Patient was felt to have bone lesion represen ting isolated metastasis from renal cell carcinoma. CT-guided biopsy and embolization on 04/2201 5 was done followed by debridement and prophylactic nail placement. Biopsy came back consistent with RCC clear cell type. Systemic treatment recommended for metastatic disease, and this was done patient received 3 cycles of chemotherapy utilizing dual CTL A4/PD-L1 inhibitor treatment. Patient was admitted this time on 08/29/2024, admitted mostly with symptoms of weakness and she was felt to be dehydrated she also had worsening diarrhea she complained of blurred vision as well as headache CT brain showed negative finding for acute intracranial process. Patient has been seen since admission by many consultants including oncology, nephrology, ophthalmology, neurology, patient was initially admitted with hyponatremia as low as 117 she was seen by nephrology received treatment, and eventually her sodium came back up, continues to rise as high as 152 and today's sodium is 146. Calcium level has been fluctuating from 9.5 on admission today it is 10.8. Today I was notified about this patient because the rapid response team responded because of her worsening mental status/altered mental status associated with dehydration hyponatremia hypercalcemia in the setting of metastatic renal cell carcinoma. In addition to all of this the patient has been developing abdominal distention and what seems to be almost Saurabh syndrome noted on CT of the abdomen and pelvis. Patient was having episodes of apnea brought into the ICU and shortly after because of her apnea episodes I recommended intubation and mechanical ventilation. She is now intubated, mechanically ventilated, ABG is pending however ABG prior to intubation showed a pO2 of 81 pCO2 35 pH of 7.46. Follow-up ABG is pending. Chest x-ray postintubation showed endotracheal tube in proper position, nasogastric tube in the stomach, lung volumes are slightly diminished but no acute process or infiltrate is noted. CT abdomen pelvis showed distended gas and fluid-filled colon without focal transition point extending from the rectum correlation for a colonic ileus versus Saurabh syndrome. T6 vertebral body showed lytic lesions suspicious for metastatic disease there is absent left kidney because of his previous nephrectomy there is also fixation hardware in the right femur and spine. After evaluating the patient in the ER, she was noted to be hypotensive postintubation fluid boluses were given in the form of LR and D5W I consulted general surgery to evaluate the patient for her abdominal distention. Labs were all reviewed. Seen today on 09/05/2024, remains intubated and mechanically ventilated, patient is on assist-control rate of 28 tidal volume 450 FiO2 50% and PEEP of 5 ABG showed a pO2 of 109 pCO2 34 pH of 7.45 patient is arousable to deep painful stimuli, still on propofol at 20 mcg/kg/min still requiring norepinephrine at 0.12 mcg/kg/min. WBC count is 15.3, hemoglobin is 11.8. Not much of a change noted since yesterday, patient has been developing episodes of atrial fibrillation with RVR, cardiology was consulted. And amiodarone was recommended and ordered for A-fib with RVR. Chest x-ray today showed low lung volumes, endotracheal tube and nasogastric tube in proper position. No evidence of pu lmonary edema or pneumonia. Seen today on 09/06/2024, patient remains intubated and mechanically ventilated, she is on assist-control rate of 20 tidal volume 450 FiO2 50% and PEEP of 5 ABG is marginal showed a pO2 of 72 pCO2 31 pH of 7.48. Patient is still requiring vasopressin at 0.03 units/min norepinephrine at 0.09 mcg/kg/min he is also on amiodarone 0.5 mg/h propofol is presently on hold. Patient remains on Zosyn empirically for colitis. Patient is arousable, follows simple instructions, but she seems to be profoundly weak. Family is at bedside, and the family was updated on her condition, labs were all reviewed electrolytes are normal BUN is 36 creatinine 0.97. WBC count is 16.3 hemoglobin 11.9. Chest x-ray showed mostly bibasilar atelectasis small left-sided pleural effusion is noted. Patient is to receive more fluids for her relatively low blood pressure. Her labs were all reviewed and I went ahead and discussed her condition with the family, agreed to change CODE STATUS to DNR, and explained to the family that I would likely extubate the patient if she does well on pressure support and CPAP, and ensuring her follow-up ABG on pressure support is good, however the patient is not to be reintubated if she fails extubation. After 1 hour of pressure support and CPAP, follow-up ABG showed a PO2 of 74 pCO2 32 pH of 7.45, went ahead and extubate the patient to BiPAP. In the meantime we will continue present full supportive care measures except no reintubation. Objective - Vital Signs Vital signs: Vital Signs Temp 98.6 F 09/06/24 12:00 Pulse 87 09/06/24 15:00 Resp 21 09/06/24 15:00 BP 125/78 09/06/24 12:15 Pulse Ox 95 09/06/24 15:00 FiO2 50 09/06/24 15:00 Intake & Output 09/05/24 09/06/24 09/06/24 18:59 06:59 18:59 Intake Total 1453.022 731.637 2124.257 Output Total 660 1215 360 Balance 793.022 -679.187 763.257 Weight 76.5 kg 81 kg Intake: IV 0 100 650 0.9 Sodium Chloride 50 Lactated Ringers 500 ml @ 500 999 mls/hr IV .Q31M [facility] Rx#:[id number] Piperacillin-Tazobactam 3 100 100 .375 gm In Sodium Chloride 0.9% 100 ml @ 25 mls/hr IVPB Q8HR [facility] Rx# :[id number] Sodium Chloride 0.45% 1, 0 000 ml @ 50 mls/hr IV . Q20H [facility] Rx#:[id number] Intake, IV Titration 1453.022 435.813 473.257 Amount Amiodarone 450 mg In 250 Dextrose 5% in Water 250 ml @ 0.5 MG/MIN 16.667 mls/hr IV .Q15H [facility] Rx#: [id number] Norepinephrine 8 mg In 367.853 335.813 123.786 Sodium Chloride 0.9% 250 ml @ 0.03 MCG/KG/MIN 4. 476 mls/hr IV .Q24H [facility] Rx#:[id number] Sodium Chloride 0.9% 1, 1000 000 ml @ 999 mls/hr IV . Q1H1M [facility] Rx#:[id number] propofoL 1,000 mg In 85.169 100 99.471 Empty Bag 1 bag @ 15 MCG/ KG/MIN 6.94 mls/hr IV . [id number] [facility] Rx#:[id number] Output: Gastric Drainage 150 400 Urine 510 815 360 Other: Voiding Method Indwelling Catheter Indwelling Catheter Indwelling Catheter ABP, PAP, CO, CI - Last Documented Arterial Blood Pressure 109/59 - Exam Physical exam revealed a 69-year-old female intubated, looks comfortable and she does not seem to be in distress. Head: Atraumatic, normocephalic HEENT: PERRLA, EOMI, nonicteric, no neck masses no JVD no stridor. Pulmonary: Diminished breath sounds at the bases no crackles rhonchi or wheezes Cardiac: Distant S1-S2, no S3 gallop. Abdomen: There is less abdominal distention today, patient has a fecal management system in place. Extremities no clubbing edema or cyanosis Neurologic: Sleepy, but arousable, generally weak, follows simple instructions. Psychiatric: Could not assess. - Labs CBC & Chem 7: 09/06/24 05:20 09/06/24 14:10 Labs: Abnormal Lab Results - Last 24 Hours (Table) 09/05/24 09/05/24 09/06/24 Range/Units 15:51 23:35 05:20 WBC 16.37 H (4.50-10.00) 10*3/uL Hgb 11.9 L (12.0-15.0) g/dL Hct 36.4 L (37.2-46.3) % MPV 8.4 L (9.5-12.2) fL ABG pH (7.35-7.45) ABG pCO2 (35-45) mmHg ABG pO2 (83-108) mmHg ABG O2 Saturation (94-97) % Chloride (98-107) mmol/L Carbon Dioxide (22-30) mmol/L BUN (7-17) mg/dL Glucose (74-99) mg/dL POC Glucose (mg/dL) 142 H 138 H (70-110) mg/dL Calcium (8.4-10.2) mg/dL Total Protein (6.3-8.2) g/dL Albumin (3.5-5.0) g/dL 09/06/24 09/06/24 09/06/24 Range/Units 05:20 05:36 06:04 WBC (4.50-10.00) 10*3/uL Hgb (12.0-15.0) g/dL Hct (37.2-46.3) % MPV (9.5-12.2) fL ABG pH 7.48 H (7.35-7.45) ABG pCO2 31 L (35-45) mmHg ABG pO2 72 L (83-108) mmHg ABG O2 Saturation 93.4 L (94-97) % Chloride 111 H (98-107) mmol/L Carbon Dioxide 19 L (22-30) mmol/L BUN 36 H (7-17) mg/dL Glucose 141 H (74-99) mg/dL POC Glucose (mg/dL) 136 H (70-110) mg/dL Calcium 7.4 L (8.4-10.2) mg/dL Total Protein 4.5 L (6.3-8.2) g/dL Albumin 1.9 L (3.5-5.0) g/dL 09/06/24 Range/Units 12:16 WBC (4.50-10.00) 10*3/uL Hgb (12.0-15.0) g/dL Hct (37.2-46.3) % MPV (9.5-12.2) fL ABG pH (7.35-7.45) ABG pCO2 32 L (35-45) mmHg ABG pO2 74 L (83-108) mmHg ABG O2 Saturation 93.3 L (94-97) % Chloride (98-107) mmol/L Carbon Dioxide (22-30) mmol/L BUN (7-17) mg/dL Glucose (74-99) mg/dL POC Glucose (mg/dL) (70-110) mg/dL Calcium (8.4-10.2) mg/dL Total Protein (6.3-8.2) g/dL Albumin (3.5-5.0) g/dL Microbiology - Last 24 Hours (Table) 09/04/24 17:45 Gram Stain - Preliminary Sputum Sputum Culture - Preliminary Assessment and Plan Assessment: Impression: Acute respiratory failure with frequent episodes of apnea felt to be related to her altered mental status, and hypernatremia as well as hypercalcemia. [employer] metastasis has been practically ruled out. Acute metabolic encephalopathy Possible new onset seizure Benign essential hypertension Hypotension secondary to hypovolemia, strongly doubt sepsis. 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 Seen by general surgery on consultation. 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 Today's sodium is 143. Atrial fibrillation with RVR, patient is now on amiodarone. Recommendation: Continue ventilatory support, however the patient will be given a trial of we aning with pressure support and CPAP, if tolerated may proceed to extubation and not to reintubate if patient fails. Then proceed to comfort care measures at that point. Continue IV fluid and fluid boluses for hypotension Consider starting pressors titrate accordingly. Continue Zosyn Continue seizure meds Continue to monitor in ICU Patient remains critically ill Discussed her condition with family at bedside. 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
--- NOTE | 2024-09-06 15:22 | P.PN ---
Subjective Progress Note Date: 09/06/24 SURGICAL PROGRESS NOTE CHIEF COMPLAINT: Abdominal distention HISTORY OF PRESENT ILLNESS: Patient extubated and now on BiPAP. Patient has been fecal management system in place with loose liquidy stools. NG tube with 400 mL out. Currently on levo and vasopressin. PHYSICAL EXAM: VITAL SIGNS: Reviewed. GENERAL: Well-developed in no acute distress. ABDOMEN: Distended with tenderness with palpation to the left side of the abdomen NEUROLOGIC: awake and alert ASSESSMENT: 1. Abdominal distention. 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 PLAN: -Potential for bowel ischemia remains however patient not felt to be a candidate for any surgical intervention at this time. -Continue supportive care with bowel rest, fecal management system decompression, IV antibiotics. -keep NPO Physician Firer Automatic Stoker note has been reviewed by physician. Signing provider agrees with the documented findings, assessment, and plan of care. I have personally seen and examined the patient, reviewed the MANAGER LABORATORY /PAs history, exam and MDM and agree with the assessment and plan as written. Based on total visit time, I have performed more than 50% of the visit. As above: Patient was extubated and is now on morphine drip. Spoke with family. All questions answered. Objective - Vital Signs Vital signs: Vital Signs Temp 98.6 F 09/06/24 12:00 Pulse 87 09/06/24 15:00 Resp 21 09/06/24 15:00 BP 125/78 09/06/24 12:15 Pulse Ox 95 09/06/24 15:00 FiO2 50 09/06/24 15:00 Intake & Output 09/05/24 09/06/24 09/06/24 18:59 06:59 18:59 Intake Total 1453.022 148.859 9934.257 Output Total 660 1215 360 Balance 793.022 -679.187 763.257 Weight 76.5 kg 81 kg Intake: IV 0 100 650 0.9 Sodium Chloride 50 Lactated Ringers 500 ml @ 500 999 mls/hr IV .Q31M [facility] Rx#:[id number] Piperacillin-Tazobactam 3 100 100 .375 gm In Sodium Chloride 0.9% 100 ml @ 25 mls/hr IVPB Q8HR [facility] Rx# :[id number] Sodium Chloride 0.45% 1, 0 000 ml @ 50 mls/hr IV . Q20H [facility] Rx#:[id number] Intake, IV Titration 1453.022 435.813 473.257 Amount Amiodarone 450 mg In 250 Dextrose 5% in Water 250 ml @ 0.5 MG/MIN 16.667 mls/hr IV .Q15H [facility] Rx#: [id number] Norepinephrine 8 mg In 367.853 335.813 123.786 Sodium Chloride 0.9% 250 ml @ 0.03 MCG/KG/MIN 4. 476 mls/hr IV .Q24H [facility] Rx#:[id number] Sodium Chloride 0.9% 1, 1000 000 ml @ 999 mls/hr IV . Q1H1M [facility] Rx#:[id number] propofoL 1,000 mg In 85.169 100 99.471 Empty Bag 1 bag @ 15 MCG/ KG/MIN 6.94 mls/hr IV . [id number] [facility] Rx#:[id number] Output: Gastric Drainage 150 400 Urine 510 815 360 Other: Voiding Method Indwelling Catheter Indwelling Catheter Indwelling Catheter ABP, PAP, CO, CI - Last Documented Arterial Blood Pressure 109/59 - Labs CBC & Chem 7: 09/06/24 05:20 09/06/24 14:10 Labs: Abnormal Lab Results - Last 24 Hours (Table) 09/05/24 09/05/24 09/06/24 Range/Units 15:51 23:35 05:20 WBC 16.37 H (4.50-10.00) 10*3/uL Hgb 11.9 L (12.0-15.0) g/dL Hct 36.4 L (37.2-46.3) % MPV 8.4 L (9.5-12.2) fL ABG pH (7.35-7.45) ABG pCO2 (35-45) mmHg ABG pO2 (83-108) mmHg ABG O2 Saturation (94-97) % Chloride (98-107) mmol/L Carbon Dioxide (22-30) mmol/L BUN (7-17) mg/dL Glucose (74-99) mg/dL POC Glucose (mg/dL) 142 H 138 H (70-110) mg/dL Calcium (8.4-10.2) mg/dL Total Protein (6.3-8.2) g/dL Albumin (3.5-5.0) g/dL 09/06/24 09/06/24 09/06/24 Range/Units 05:20 05:36 06:04 WBC (4.50-10.00) 10*3/uL Hgb (12.0-15.0) g/dL Hct (37.2-46.3) % MPV (9.5-12.2) fL ABG pH 7.48 H (7.35-7.45) ABG pCO2 31 L (35-45) mmHg ABG pO2 72 L (83-108) mmHg ABG O2 Saturation 93.4 L (94-97) % Chloride 111 H (98-107) mmol/L Carbon Dioxide 19 L (22-30) mmol/L BUN 36 H (7-17) mg/dL Glucose 141 H (74-99) mg/dL POC Glucose (mg/dL) 136 H (70-110) mg/dL Calcium 7.4 L (8.4-10.2) mg/dL Total Protein 4.5 L (6.3-8.2) g/dL Albumin 1.9 L (3.5-5.0) g/dL 09/06/24 Range/Units 12:16 WBC (4.50-10.00) 10*3/uL Hgb (12.0-15.0) g/dL Hct (37.2-46.3) % MPV (9.5-12.2) fL ABG pH (7.35-7.45) ABG pCO2 32 L (35-45) mmHg ABG pO2 74 L (83-108) mmHg ABG O2 Saturation 93.3 L (94-97) % Chloride (98-107) mmol/L Carbon Dioxide (22-30) mmol/L BUN (7-17) mg/dL Glucose (74-99) mg/dL POC Glucose (mg/dL) (70-110) mg/dL Calcium (8.4-10.2) mg/dL Total Protein (6.3-8.2) g/dL Albumin (3.5-5.0) g/dL Microbiology - Last 24 Hours (Table) 09/04/24 17:45 Gram Stain - Preliminary Sputum Sputum Culture - Preliminary
[2024-09-06 15:49] LABS: INR 1.1 (<1.2); Partial Thromboplastin Time 84.3 sec (22.0-30.0); Prothrombin Time 12.3 sec (10.0-12.5)
[2024-09-06] MEDS: MORPHINE SULFATE 4 MG/ML SYRINGE IV PRN (16:35)
[2024-09-06] MEDS: MORPHINE SULFATE 100 MG in SODIUM CHLORIDE 0.9% 90 ML IV SCH (18:29)
[2024-09-06] MEDS: LORazepam 1 MG/0.5 ML VIAL IV PRN ×2 (18:40→21:52)
--- NOTE | 2024-09-06 21:32 | P.PN ---
Subjective Principal diagnosis: Hyponatremia. Metastatic renal cell cancer. Chief complaint Significant hyponatremia and altered mental status related to metastatic renal cell cancer. History of present illness Annamaria Humphrey, a 69-year-old female, has been treated for metastatic renal cell cancer. She presented with significant hyponatremia, likely related to the renal cell cancer, and experienced altered mental status. An MRI with neurology indicated possible occipital infarct versus reversible ischemia. Her condition declined suddenly, leading to an altered status requiring ICU placement. Past medical history Metastatic renal cell carcinoma. History of hyponatremia, now resolved. Physical exam - CARDIOVASCULAR: Heart regular rate and rhythm without murmur. - LUNGS: Patient intubated. - ABDOMEN: Abdominal distension, hypoactive bowel sounds. - EXTREMITIES: Edema. Lab results Hyponatremia indicative of SIADH Imaging results - MRI showed possible occipital infarct versus reversible ischemia Assessment - Altered mental status associated with metastatic renal cell carcinoma - Significant hyponatremia indicative of SIADH, likely related to renal cell cancer - Possible occipital infarct versus reversible ischemia as noted on MRI with neurology Plan - [place] comfort measures for the patient, following a discussion with the family regarding the poor prognosis. Visit diagnoses suggestions (2) - Hypo-osmolality and hyponatremia [E87.1] - Altered mental status, unspecified [R41.82] Objective - Vital Signs Vital signs: Vital Signs Temp 98.5 F 09/06/24 16:00 Pulse 99 09/06/24 21:15 Resp 16 09/06/24 21:15 BP 125/78 09/06/24 12:15 Pulse Ox 95 09/06/24 21:00 FiO2 50 09/06/24 20:31 Intake & Output 09/06/24 09/06/24 09/07/24 06:59 18:59 06:59 Intake Total 311.712 9488.700 319.447 Output Total 1215 485 70 Balance -679.187 773.700 249.447 Weight 81 kg Intake: IV 100 680 10 0.9 Sodium Chloride 80 10 Lactated Ringers 500 ml @ 500 999 mls/hr IV .Q31M [facility] Rx#:[id number] Piperacillin-Tazobactam 3 100 100 .375 gm In Sodium Chloride 0.9% 100 ml @ 25 mls/hr IVPB Q8HR [facility] Rx# :[id number] Intake, IV Titration 435.813 578.700 309.447 Amount Amiodarone 450 mg In 250 113.613 Dextrose 5% in Water 250 ml @ 0.5 MG/MIN 16.667 mls/hr IV .Q15H [facility] Rx#: [id number] Heparin Sod,Pork in 0.45% 74.034 31.455 NaCl 25,000 unit In 0.45 % NaCl 1 250ml.bag @ 12 UNITS/KG/HR 9.72 mls/hr IV .Q24H [facility] Rx#: [id number] Morphine Sulfate 100 mg 13.917 In Sodium Chloride 0.9% 90 ml @ 4 MG/HR 4 mls/hr IV .Q24H [facility] Rx#: [id number] Norepinephrine 8 mg In 335.813 155.195 16.511 Sodium Chloride 0.9% 250 ml @ 0.03 MCG/KG/MIN 4. 476 mls/hr IV .Q24H [facility] Rx#:[id number] Vasopressin 60 unit In 133.951 Sodium Chloride 0.9% 150 ml @ 0.03 UNITS/MIN 4.59 mls/hr IV .Q24H [facility] Rx#: [id number] propofoL 1,000 mg In 100 99.471 Empty Bag 1 bag @ 15 MCG/ KG/MIN 6.94 mls/hr IV . [id number] [facility] Rx#:[id number] Output: Gastric Drainage 400 Urine 815 485 70 Other: Voiding Method Indwelling Catheter Indwelling Catheter Indwelling Catheter ABP, PAP, CO, CI - Last Documented Arterial Blood Pressure 96/63 - Labs CBC & Chem 7: 09/06/24 05:20 09/06/24 14:10 Labs: Abnormal Lab Results - Last 24 Hours (Table) 09/05/24 09/06/24 09/06/24 Range/Units 23:35 05:20 05:20 WBC 16.37 H (4.50-10.00) 10*3/uL Hgb 11.9 L (12.0-15.0) g/dL Hct 36.4 L (37.2-46.3) % MPV 8.4 L (9.5-12.2) fL APTT (22.0-30.0) sec ABG pH (7.35-7.45) ABG pCO2 (35-45) mmHg ABG pO2 (83-108) mmHg ABG O2 Saturation (94-97) % Chloride 111 H (98-107) mmol/L Carbon Dioxide 19 L (22-30) mmol/L BUN 36 H (7-17) mg/dL Glucose 141 H (74-99) mg/dL POC Glucose (mg/dL) 138 H (70-110) mg/dL Calcium 7.4 L (8.4-10.2) mg/dL Total Protein 4.5 L (6.3-8.2) g/dL Albumin 1.9 L (3.5-5.0) g/dL 09/06/24 09/06/24 09/06/24 Range/Units 05:36 06:04 12:16 WBC (4.50-10.00) 10*3/uL Hgb (12.0-15.0) g/dL Hct (37.2-46.3) % MPV (9.5-12.2) fL APTT (22.0-30.0) sec ABG pH 7.48 H (7.35-7.45) ABG pCO2 31 L 32 L (35-45) mmHg ABG pO2 72 L 74 L (83-108) mmHg ABG O2 Saturation 93.4 L 93.3 L (94-97) % Chloride (98-107) mmol/L Carbon Dioxide (22-30) mmol/L BUN (7-17) mg/dL Glucose (74-99) mg/dL POC Glucose (mg/dL) 136 H (70-110) mg/dL Calcium (8.4-10.2) mg/dL Total Protein (6.3-8.2) g/dL Albumin (3.5-5.0) g/dL 09/06/24 Range/Units 15:00 WBC (4.50-10.00) 10*3/uL Hgb (12.0-15.0) g/dL Hct (37.2-46.3) % MPV (9.5-12.2) fL APTT 84.3 H (22.0-30.0) sec ABG pH (7.35-7.45) ABG pCO2 (35-45) mmHg ABG pO2 (83-108) mmHg ABG O2 Saturation (94-97) % Chloride (98-107) mmol/L Carbon Dioxide (22-30) mmol/L BUN (7-17) mg/dL Glucose (74-99) mg/dL POC Glucose (mg/dL) (70-110) mg/dL Calcium (8.4-10.2) mg/dL Total Protein (6.3-8.2) g/dL Albumin (3.5-5.0) g/dL Microbiology - Last 24 Hours (Table) 09/05/24 17:28 Blood Culture Gram Stain - Preliminary Blood Blood Culture - Preliminary Molecular ID 09/04/24 17:45 Gram Stain - Preliminary Sputum Sputum Culture - Preliminary Assessment and Plan (1) Hyponatremia Current Visit: Yes Status: Acute Priority: High Code(s): E87.1 - HYPO- OSMOLALITY AND HYPONATREMIA SNOMED Code(s): 13297314 (2) History of renal cell carcinoma Current Visit: No Status: Chronic Priority: Medium Code(s): Z85.528 - PERSONAL HISTORY OF OTHER MALIGNANT NEOPLASM OF KIDNEY SNOMED Code(s): 608402459 (3) Renal cell carcinoma Current Visit: Yes Status: Acute Priority: High Code(s): C64.9 - MALIGNANT NEOPLASM OF UNSP KIDNEY, EXCEPT RENAL PELVIS SNOMED Code(s): 463909382
--- NOTE | 2024-09-06 21:59 | P.HPIM ---
History of Present Illness H&P Date: 09/06/24 Chief Complaint: Hyponatremia This is a history and physical a 69-year-old white female who essentially a has an underlying history of metastatic renal cell carcinoma. However, confusion is noted with altered mental status and the patient was found to have significant hyponatremia. Appropriate admission for multiple issues is noted Review of Systems Constitutional: Reports malaise, Reports weakness Eyes: denies blurred vision, denies pain Ears, nose, mouth and throat: Denies headache, Denies sore throat Cardiovascular: Denies chest pain, Denies shortness of breath Respiratory: Denies cough Gastrointestinal: Denies abdominal pain, Denies diarrhea, Denies nausea, Denies vomiting Genitourinary: Reports as per HPI Past Medical History Past Medical History: Cancer, Chest Pain / Angina, Heart Failure, GERD/Reflux, Hyperlipidemia, Hypertension, Myocardial Infarction ([place]), Pneumonia, Sleep Apnea/CPAP/BIPAP, Thyroid Disorder Additional Past Medical History / Comment(s): "electrical heart attack", PUD, hypothyroid, low back pain, rib fx, diverticulosis dx/benign polyp, Renal/Bone Ca Last Myocardial Infarction Date:: 2012 History of Any Multi-Drug Resistant Organisms: None Reported Past Surgical History: Back Surgery, Heart Catheterization, Orthopedic Surgery, Tonsillectomy, Tubal Ligation Additional Past Surgical History / Comment(s): 2012 cardiac cath-normal x2, 01/11/17 colonoscopy/benign polypectomy, ORIF LT FT, back x2, "lt NEPHRECTOMY d/t cancer". 09/30-heart cath-clear. dehiscence of incision with kidney surgery trigger finger repair rt hand Past Anesthesia/Blood Transfusion Reactions: Postoperative Nausea & Vomiting (PONV) Additional Past Anesthesia/Blood Transfusion Reaction / Comment(s): no hx blood transfusion. Anesthesia: elevation in blood pressure, aspirated after a surgery at [facility]; Pt does not want propofol Past Psychological History: Anxiety, Depression Additional Psychological History / Comment(s): and lives with the . Does not work outside of the home. Has pet dogs at home Smoking Status: Former smoker Past Alcohol Use History: None Reported Additional Past Alcohol Use History / Comment(s): Pt started smoking in 1971 smoked <1 ppd and quit may 2017 - Past Family History Mother Family Medical History: Hyperlipidemia Additional Family Medical History / Comment(s): Mother was healthy and lived to be 92 yrs. old. alcohol abuse Father History Unknown: Yes Family Medical History: Chest Pain / Angina Medications and Allergies Home Medications Medication Instructions Recorded Confirmed Type RX: ALPRAZolam [Xanax] 0.5 mg PO TID 07/08/17 08/29/24 History RX: Atorvastatin [Lipitor] 40 mg PO DAILY 09/23/20 08/29/24 History RX: Levothyroxine Sodium 137 mcg PO MOTUWETHFRSA 09/23/20 08/29/24 History RX: Apixaban [Eliquis] 5 mg PO BID 09/01/22 08/29/24 History RX: Fesoterodine Fumarate 8 mg PO DAILY 09/28/23 08/29/24 History [Fesoterodine Fumarate ER] RX: Isosorbide Mononitrate ER 30 mg PO DAILY 09/28/23 08/29/24 History [Imdur] RX: Metoprolol Succinate (ER) 25 mg PO DAILY 09/28/23 08/29/24 History [Toprol XL] RX: Ergocalciferol [Vitamin D2 1,250 mcg PO INGRAM 04/10/24 08/29/24 History (1250 Mcg = 33327 Iu)] RX: Escitalopram [Lexapro] 10 mg PO DAILY 08/08/24 08/29/24 History RX: Ipilimumab [Yervoy] 1 dose IV Q21D 08/08/24 08/29/24 History RX: Nivolumab [Opdivo] 1 dose IV Q21D 08/08/24 08/29/24 History RX: Omeprazole [PriLOSEC] 20 mg PO DAILY 08/08/24 08/29/24 History RX: Ondansetron Odt [Zofran ODT] 8 mg PO Q8HR PRN 08/08/24 08/29/24 History RX: Amiodarone [Cordarone] 200 mg PO BID #60 tab 08/14/24 08/29/24 Rx RX: Losartan [Cozaar] 50 mg PO BID #60 tab 08/14/24 08/29/24 Rx RX: Potassium Chloride ER [K-Dur 20 meq PO DAILY 30 Days #30 tab 08/14/24 08/29/24 Rx 20] RX: amLODIPine [Norvasc] 10 mg PO DAILY #30 tab 08/14/24 08/29/24 Rx RX: levETIRAcetam [Keppra] 500 mg PO Q12HR #60 tab 08/14/24 08/29/24 Rx Aspirin EC [Ecotrin Low Dose] 81 mg PO DAILY 08/29/24 08/29/24 History RX: Lactulose 10 gm PO BID PRN 08/29/24 08/29/24 History RX: Morphine Sulfate Ir [MSIR] 15 mg PO Q6H 08/29/24 08/29/24 History calcitrioL [Rocaltrol] 0.25 mcg PO DAILY 08/29/24 08/29/24 History Allergies Allergy/AdvReac Type Severity Reaction Status Date / Time fentanyl Allergy Unknown Verified 08/29/24 15:57 Sulfa (Sulfonamide Allergy Rash/Hives Verified 08/29/24 15:57 Antibiotics) NSAIDS (Non-Steroidal AdvReac NO NSAIDS Verified 08/29/24 15:57 Anti-Inflamma DUE TO ONLY 1 KIDNEY Physical Exam Vitals: Vital Signs Temp Pulse Resp BP Pulse Ox FiO2 09/06/24 21:15 99 16 09/06/24 21:00 101 H 14 95 09/06/24 20:45 105 H 11 L 96 09/06/24 20:31 50 09/06/24 20:30 97 16 95 09/06/24 20:15 102 H 14 95 09/06/24 20:00 106 H 18 95 09/06/24 19:45 76 16 96 09/06/24 19:30 78 18 95 09/06/24 19:15 80 18 95 09/06/24 19:00 80 16 95 50 09/06/24 18:45 83 16 95 09/06/24 18:30 84 21 96 09/06/24 18:15 84 14 97 09/06/24 18:00 82 17 95 50 09/06/24 17:45 84 18 97 09/06/24 17:30 85 21 94 L 09/06/24 17:15 85 14 97 09/06/24 17:00 85 18 95 50 09/06/24 16:50 50 09/06/24 16:45 85 11 L 94 L 09/06/24 16:30 87 21 96 09/06/24 16:15 87 19 94 L 09/06/24 16:00 98.5 F 87 20 96 50 09/06/24 15:45 87 18 95 09/06/24 15:30 87 20 96 09/06/24 15:15 89 20 96 09/06/24 15:00 87 21 95 50 09/06/24 14:45 86 19 96 09/06/24 14:30 90 34 H 95 09/06/24 14:15 87 23 95 09/06/24 14:00 89 22 96 50 09/06/24 13:45 89 22 96 09/06/24 13:30 90 21 95 09/06/24 13:15 91 22 95 09/06/24 13:00 93 24 95 50 09/06/24 12:45 95 23 93 L 50 09/06/24 12:40 50 09/06/24 12:31 50 09/06/24 12:30 97 20 94 L 09/06/24 12:15 98 20 125/78 94 L 09/06/24 12:00 98.6 F 98 20 94 L 50 09/06/24 11:59 50 09/06/24 11:45 101 H 25 H 94 L 09/06/24 11:30 100 23 93 L 09/06/24 11:15 101 H 23 93 L 09/06/24 11:00 101 H 24 92 L 50 09/06/24 10:45 101 H 25 H 93 L 09/06/24 10:30 101 H 24 93 L 09/06/24 10:15 99 23 94 L 09/06/24 10:00 96 23 95 50 09/06/24 09:45 96 22 96 09/06/24 09:37 50 09/06/24 09:30 97 20 95 09/06/24 09:15 113 H 20 95 09/06/24 09:00 126 H 23 124/68 95 50 09/06/24 08:45 130 H 23 124/68 95 09/06/24 08:30 133 H 20 96 09/06/24 08:15 123 H 23 96 09/06/24 08:00 98.5 F 122 H 20 96 50 09/06/24 07:45 122 H 22 96 09/06/24 07:30 124 H 21 96 09/06/24 07:15 120 H 25 H 96 09/06/24 07:00 125 H 21 96 09/06/24 06:45 134 H 22 97 07/02/25 06:30 133 H 25 H 96 07/02/25 06:15 129 H 22 95 09/06/24 06:00 131 H 24 95 09/06/24 05:45 138 H 23 96 09/06/24 05:30 98.8 F 131 H 25 H 95 09/06/24 05:15 130 H 24 94 L 09/06/24 05:00 130 H 21 93 L 09/06/24 04:45 147 H 20 94 L 09/06/24 04:30 94 20 95 09/06/24 04:15 87 20 124/68 95 09/06/24 04:00 89 21 95 50 09/06/24 03:45 90 20 95 09/06/24 03:32 50 09/06/24 03:30 85 20 95 09/06/24 03:15 86 20 124/75 95 09/06/24 03:00 87 20 95 09/06/24 02:45 84 20 94 L 09/06/24 02:30 83 20 94 L 09/06/24 02:15 83 20 94 L 09/06/24 02:00 82 20 94 L 09/06/24 01:45 83 20 95 09/06/24 01:30 84 20 95 09/06/24 01:15 87 20 95 09/06/24 01:00 80 20 94 L 09/06/24 00:45 79 20 95 09/06/24 00:30 78 20 94 L 09/06/24 00:19 50 09/06/24 00:15 98.4 F 78 20 95 09/06/24 00:00 76 20 94 L 50 09/05/24 23:45 77 20 95 09/05/24 23:30 76 20 94 L 09/05/24 23:15 75 20 96 09/05/24 23:00 76 20 94 L 09/05/24 22:45 76 20 94 L 09/05/24 22:30 77 20 95 09/05/24 22:15 78 20 95 09/05/24 22:00 78 20 95 Intake and Output 09/06/24 09/06/24 09/06/24 06:59 14:59 22:59 Intake Total 582.092 3100.257 464.890 Output Total 1050 320 235 Balance -714.187 793.257 229.890 Intake: IV 640 50 0.9 Sodium Chloride 40 50 Lactated Ringers 500 ml @ 500 999 mls/hr IV .Q31M [facility] Rx#:[id number] Piperacillin-Tazobactam 3 100 .375 gm In Sodium Chloride 0.9% 100 ml @ 25 mls/hr IVPB Q8HR [facility] Rx# :[id number] Intake, IV Titration 335.813 473.257 414.890 Amount Amiodarone 450 mg In 250 113.613 Dextrose 5% in Water 250 ml @ 0.5 MG/MIN 16.667 mls/hr IV .Q15H [facility] Rx#: [id number] Heparin Sod,Pork in 0.45% 105.489 NaCl 25,000 unit In 0.45 % NaCl 1 250ml.bag @ 12 UNITS/KG/HR 9.72 mls/hr IV .Q24H [facility] Rx#: [id number] Morphine Sulfate 100 mg 13.917 In Sodium Chloride 0.9% 90 ml @ 4 MG/HR 4 mls/hr IV .Q24H [facility] Rx#: [id number] Norepinephrine 8 mg In 335.813 123.786 47.920 Sodium Chloride 0.9% 250 ml @ 0.03 MCG/KG/MIN 4. 476 mls/hr IV .Q24H [facility] Rx#:[id number] Vasopressin 60 unit In 133.951 Sodium Chloride 0.9% 150 ml @ 0.03 UNITS/MIN 4.59 mls/hr IV .Q24H [facility] Rx#: [id number] propofoL 1,000 mg In 99.471 Empty Bag 1 bag @ 15 MCG/ KG/MIN 6.94 mls/hr IV . [id number] [facility] Rx#:[id number] Output: Gastric Drainage 400 Urine 650 320 235 Other: Voiding Method Indwelling Catheter Indwelling Catheter Indwelling Catheter Weight 81 kg ABP, PAP, CO, CI - Last 8 Hours Arterial Blood Pressure 96/63 Arterial Blood Pressure 107/70 Arterial Blood Pressure 112/68 Arterial Blood Pressure 109/70 Arterial Blood Pressure 103/67 Arterial Blood Pressure 101/68 Arterial Blood Pressure 107/60 Arterial Blood Pressure 106/61 Arterial Blood Pressure 109/61 Arterial Blood Pressure 104/59 Arterial Blood Pressure 111/61 Arterial Blood Pressure 118/67 Arterial Blood Pressure 121/67 Arterial Blood Pressure 105/61 Arterial Blood Pressure 116/66 Arterial Blood Pressure 113/65 Arterial Blood Pressure 115/65 Arterial Blood Pressure 108/61 Arterial Blood Pressure 113/61 Arterial Blood Pressure 121/64 Arterial Blood Pressure 113/63 Arterial Blood Pressure 121/66 Arterial Blood Pressure 115/63 Arterial Blood Pressure 113/62 Arterial Blood Pressure 120/64 Arterial Blood Pressure 109/59 Arterial Blood Pressure 111/60 Arterial Blood Pressure 118/63 Arterial Blood Pressure 106/57 Arterial Blood Pressure 113/60 - Constitutional General appearance: no acute distress - EENT Eyes: EOMI - Neck Neck: no lymphadenopathy - Respiratory Respiratory: bilateral: diminished - Cardiovascular Rhythm: regular Heart sounds: normal: S1, S2 Abnormal Heart Sounds: no S3 Gallop - Gastrointestinal General gastrointestinal: soft, no tenderness - Psychiatric Psychiatric: A&O x's 3 Results CBC & Chem 7: 09/06/24 05:20 09/06/24 14:10 Labs: Abnormal Lab Results - Last 24 Hours (Table) 09/05/24 09/06/24 09/06/24 Range/Units 23:35 05:20 05:20 WBC 16.37 H (4.50-10.00) 10*3/uL Hgb 11.9 L (12.0-15.0) g/dL Hct 36.4 L (37.2-46.3) % MPV 8.4 L (9.5-12.2) fL APTT (22.0-30.0) sec ABG pH (7.35-7.45) ABG pCO2 (35-45) mmHg ABG pO2 (83-108) mmHg ABG O2 Saturation (94-97) % Chloride 111 H (98-107) mmol/L Carbon Dioxide 19 L (22-30) mmol/L BUN 36 H (7-17) mg/dL Glucose 141 H (74-99) mg/dL POC Glucose (mg/dL) 138 H (70-110) mg/dL Calcium 7.4 L (8.4-10.2) mg/dL Total Protein 4.5 L (6.3-8.2) g/dL Albumin 1.9 L (3.5-5.0) g/dL 09/06/24 09/06/24 09/06/24 Range/Units 05:36 06:04 12:16 WBC (4.50-10.00) 10*3/uL Hgb (12.0-15.0) g/dL Hct (37.2-46.3) % MPV (9.5-12.2) fL APTT (22.0-30.0) sec ABG pH 7.48 H (7.35-7.45) ABG pCO2 31 L 32 L (35-45) mmHg ABG pO2 72 L 74 L (83-108) mmHg ABG O2 Saturation 93.4 L 93.3 L (94-97) % Chloride (98-107) mmol/L Carbon Dioxide (22-30) mmol/L BUN (7-17) mg/dL Glucose (74-99) mg/dL POC Glucose (mg/dL) 136 H (70-110) mg/dL Calcium (8.4-10.2) mg/dL Total Protein (6.3-8.2) g/dL Albumin (3.5-5.0) g/dL 09/06/24 Range/Units 15:00 WBC (4.50-10.00) 10*3/uL Hgb (12.0-15.0) g/dL Hct (37.2-46.3) % MPV (9.5-12.2) fL APTT 84.3 H (22.0-30.0) sec ABG pH (7.35-7.45) ABG pCO2 (35-45) mmHg ABG pO2 (83-108) mmHg ABG O2 Saturation (94-97) % Chloride (98-107) mmol/L Carbon Dioxide (22-30) mmol/L BUN (7-17) mg/dL Glucose (74-99) mg/dL POC Glucose (mg/dL) (70-110) mg/dL Calcium (8.4-10.2) mg/dL Total Protein (6.3-8.2) g/dL Albumin (3.5-5.0) g/dL Microbiology - Last 24 Hours (Table) 09/05/24 17:28 Blood Culture Gram Stain - Preliminary Blood Blood Culture - Preliminary Molecular ID 09/04/24 17:45 Gram Stain - Preliminary Sputum Sputum Culture - Preliminary Thrombosis Risk Factor Assmnt - Choose All That Apply Each Risk Factor Represents 2 Points: Age 61-74 years Thrombosis Risk Factor Assessment Total Risk Factor Score: 2 Thrombosis Risk Factor Assessment Level: Low Risk Assessment and Plan (1) Hyponatremia Current Visit: Yes Status: Acute Priority: High Code(s): E87.1 - HYPO- OSMOLALITY AND HYPONATREMIA SNOMED Code(s): 33716560 (2) History of renal cell carcinoma Current Visit: No Status: Chronic Priority: Medium Code(s): Z85.528 - PERSONAL HISTORY OF OTHER MALIGNANT NEOPLASM OF KIDNEY SNOMED Code(s): 053446426 (3) Renal cell carcinoma Current Visit: Yes Status: Acute Priority: High Code(s): C64.9 - MALIGNANT NEOPLASM OF UNSP KIDNEY, EXCEPT RENAL PELVIS SNOMED Code(s): 582177313 (4) Hyponatremia Current Visit: Yes Status: Acute Code(s): E87.1 - HYPO-OSMOLALITY AND HY PONATREMIA SNOMED Code(s): 80704019 Plan: We will go ahead and check appropriate laboratory examination. Reconcile home medications. Consult nephrology. Prognosis is guarded secondary to multiple comorbidities. 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
--- NOTE | 2024-09-07 08:18 | P.PN ---
Subjective Progress Note Date: 09/07/24 This is a 69-year-old female with a known history of metastatic renal cell carcinoma who presented to the emergency department with hyponatremia. Sodium is slowly improving. Patient reports she is still feeling fatigued today. Nephrology and oncology are on consult. 09/04/2024 Patient seen this morning laying in bed, drowsy. Patient's confusion worsened over the weekend. EEG and MRI have been ordered. present at bedside. Her sodium has stabilized. 09/05/2024 Patient declined yesterday and was transferred to the ICU. She is now on mechanical ventilation. Abdominal XR showing an ileus. 09/07/2024 Family has chose to proceed with comfort care. Objective - Vital Signs Vital signs: Vital Signs Temp 98.7 F 09/07/24 08:00 Pulse 112 H 09/07/24 08:00 Resp 14 09/07/24 08:00 BP 106/66 09/07/24 08:00 Pulse Ox 67 L 09/07/24 08:00 FiO2 50 09/06/24 20:31 Intake & Output 09/06/24 09/07/24 09/07/24 18:59 06:59 18:59 Intake Total 1258.700 389.531 20 Output Total 485 270 75 Balance 773.700 119.531 -55 Intake: IV 680 10 20 0.9 Sodium Chloride 80 10 20 Lactated Ringers 500 ml @ 500 999 mls/hr IV .Q31M [facility] Rx#:[id number] Piperacillin-Tazobactam 3 100 .375 gm In Sodium Chloride 0.9% 100 ml @ 25 mls/hr IVPB Q8HR [facility] Rx# :[id number] Intake, IV Titration 578.700 379.531 Amount Amiodarone 450 mg In 250 113.613 Dextrose 5% in Water 250 ml @ 0.5 MG/MIN 16.667 mls/hr IV .Q15H [facility] Rx#: [id number] Heparin Sod,Pork in 0.45% 74.034 31.455 NaCl 25,000 unit In 0.45 % NaCl 1 250ml.bag @ 12 UNITS/KG/HR 9.72 mls/hr IV .Q24H [facility] Rx#: [id number] Morphine Sulfate 100 mg 84.001 In Sodium Chloride 0.9% 90 ml @ 4 MG/HR 4 mls/hr IV .Q24H [facility] Rx#: [id number] Norepinephrine 8 mg In 155.195 16.511 Sodium Chloride 0.9% 250 ml @ 0.03 MCG/KG/MIN 4. 476 mls/hr IV .Q24H [facility] Rx#:[id number] Vasopressin 60 unit In 133.951 Sodium Chloride 0.9% 150 ml @ 0.03 UNITS/MIN 4.59 mls/hr IV .Q24H [facility] Rx#: [id number] propofoL 1,000 mg In 99.471 Empty Bag 1 bag @ 15 MCG/ KG/MIN 6.94 mls/hr IV . [id number] [facility] Rx#:[id number] Output: Urine 485 270 75 Other: Voiding Method Indwelling Catheter Indwelling Catheter ABP, PAP, CO, CI - Last Documented Arterial Blood Pressure 75/67 - Labs CBC & Chem 7: 09/06/24 05:20 09/06/24 14:10 Labs: Abnormal Lab Results - Last 24 Hours (Table) 09/06/24 09/06/24 Range/Units 12:16 15:00 APTT 84.3 H (22.0-30.0) sec ABG pCO2 32 L (35-45) mmHg ABG pO2 74 L (83-108) mmHg ABG O2 Saturation 93.3 L (94-97) % Microbiology - Last 24 Hours (Table) 09/05/24 17:28 Blood Culture Gram Stain - Preliminary Blood Blood Culture - Preliminary Molecular ID 09/04/24 17:45 Gram Stain - Preliminary Sputum Sputum Culture - Preliminary Assessment and Plan (1) Hyponatremia Current Visit: Yes Status: Acute Priority: High Code(s): E87.1 - HYPO- OSMOLALITY AND HYPONATREMIA SNOMED Code(s): 71560194 (2) Renal cell carcinoma Current Visit: Yes Status: Acute Priority: High Code(s): C64.9 - MALIGNANT NEOPLASM OF UNSP KIDNEY, EXCEPT RENAL PELVIS SNOMED Code(s): 051209237 (3) History of anxiety Current Visit: No Status: Acute Code(s): Z86.59 - PERSONAL HISTORY OF OTHER MENTAL AND BEHAVIORAL DISORDERS SNOMED Code(s): 864169803 (4) Hypertension Current Visit: No Status: Acute Code(s): I10 - ESSENTIAL (PRIMARY) HYPERTENSION SNOMED Code(s): 62286583 Plan: Proceed with comfort care. Patient seen and evaluated by nurse practitioner, physician in agreement with plan.
[2024-09-07] MEDS: SODIUM CHLORIDE 0.9% 500 ML 500 ML IV SCH (08:45)
[2024-09-07 13:34] VITALS: BMI 27.9
[2024-09-07 14:26] VITALS: RESP 12
--- NOTE | 2024-09-07 14:50 | P.PN ---
Progress Note - Text Progress Note Date: 09/07/24 Patient was briefly seen today on 09/07/2024, remains in the ICU, patient was extubated yesterday, family decided to go with comfort care measures as she was having significant amount of pain and she was requiring narcotics for pain. seems to be relieved that she is comfortable, and not in pain anymore. Patient is now on comfort care measures.
[2024-09-07 16:07] VITALS: BP 83/59; PULSE 131; TEMP 98
== END 2024-09-07 19:16 | disposition expired | DRG 643 ==
LOC: EC 12:37 → 5NMEDONC 15:56 → 2SICU 09-04 15:35
PROVIDERS: ADMIT Family Medicine; ATTEND Family Medicine
PROC: 3E033XZ Introduction of Vasopressor into Peripheral Vein, Percutaneous Approach (ICD-10-PCS; principal; 2024-09-04)
PROC: 5A1945Z Respiratory Ventilation, 24-96 Consecutive Hours (ICD-10-PCS; principal; 2024-09-04)
PROC: 0BH17EZ Insertion of Endotracheal Airway into Trachea, Via Natural or Artificial Opening (ICD-10-PCS; principal; 2024-09-04)
PROC: 03HY32Z Insertion of Monitoring Device into Upper Artery, Percutaneous Approach (ICD-10-PCS; principal; 2024-09-04)
PROC: 0D9670Z Drainage of Stomach with Drainage Device, Via Natural or Artificial Opening (ICD-10-PCS; principal; 2024-09-04)
PROC: 4A133B1 Monitoring of Arterial Pressure, Peripheral, Percutaneous Approach (ICD-10-PCS; principal; 2024-09-04)
PROC: 4A133J1 Monitoring of Arterial Pulse, Peripheral, Percutaneous Approach (ICD-10-PCS; principal; 2024-09-04)
PROC: 3E033RZ Introduction of Antiarrhythmic into Peripheral Vein, Percutaneous Approach (ICD-10-PCS; 2024-09-05)
PROC: 5A09357 Assistance with Respiratory Ventilation, Less than 24 Consecutive Hours, Continuous Positive Airway Pressure (ICD-10-PCS; 2024-09-06)
DX: E22.2 Syndrome of inappropriate secretion of antidiuretic hormone (principal); G92.8 Other toxic encephalopathy; J96.01 Acute respiratory failure with hypoxia; J69.0 Pneumonitis due to inhalation of food and vomit; C79.51 Secondary malignant neoplasm of bone; K56.7 Ileus, unspecified; C64.9 Malignant neoplasm of unspecified kidney, except renal pelvis; I13.0 Hypertensive heart and chronic kidney disease with heart failure and stage 1 through stage 4 chronic kidney disease, or unspecified chronic kidney disease; R56.9 Unspecified convulsions; F32.A Depression, unspecified; E03.9 Hypothyroidism, unspecified; N17.9 Acute kidney failure, unspecified; J98.11 Atelectasis; E87.20 Acidosis, unspecified; I50.9 Heart failure, unspecified; I48.91 Unspecified atrial fibrillation; Z51.5 Encounter for palliative care; Z66 Do not resuscitate; E86.0 Dehydration; G89.3 Neoplasm related pain (acute) (chronic); N18.2 Chronic kidney disease, stage 2 (mild); G47.30 Sleep apnea, unspecified; F41.9 Anxiety disorder, unspecified; E87.6 Hypokalemia; K57.90 Diverticulosis of intestine, part unspecified, without perforation or abscess without bleeding; E86.1 Hypovolemia; E83.52 Hypercalcemia; M54.50 Low back pain, unspecified; K21.9 Gastro-esophageal reflux disease without esophagitis; H26.9 Unspecified cataract; H04.129 Dry eye syndrome of unspecified lacrimal gland; R19.7 Diarrhea, unspecified; K59.81 Ogilvie syndrome; I95.9 Hypotension, unspecified; I25.10 Atherosclerotic heart disease of native coronary artery without angina pectoris; D72.829 Elevated white blood cell count, unspecified; E78.5 Hyperlipidemia, unspecified; Z79.01 Long term (current) use of anticoagulants; Z79.82 Long term (current) use of aspirin; Z79.899 Other long term (current) drug therapy; Z87.891 Personal history of nicotine dependence; Z88.2 Allergy status to sulfonamides; Z88.5 Allergy status to narcotic agent; Z90.5 Acquired absence of kidney; I25.2 Old myocardial infarction; Z87.01 Personal history of pneumonia (recurrent)
CPT/HCPCS: 36415; 36600; 70450; 71045; 71046; 74019; 74176; 80048; 80053; 81003; 82248; 82330; 82533; 82805; 83605; 83630; 83735; 83930; 83935; 84132; 84295; 84300; 84443; 84484; 85025; 85027; 85610; 85730; 87040; 87045; 87046; 87070; 87205; 87324; 93005; 94002; 94003; 94660; 94760; 95816; 96361; 96374; 99291